=== PATIENT | male | born 2005 | race Caucasian/White ===

== ENCOUNTER 2024-05-25 09:01 | Emergency (ER) | payer SELFPAY ==
[2024-05-25 09:02] VITALS: BP 123/109; PULSE 94; RESP 18; TEMP 37.2; O2SAT 97; BMI 26.6
--- NOTE | 2024-05-25 09:11 | EX.ED.DYSGE1 ---
HPI History of Present Illness Chief Complaint: Sore Throat Detail of Chief Complaint: Sore throat x 3 weeks Informant: patient Onset/Context/Timing Onset: Weeks Context: Sudden Onset Timing: Continuous Quality: Patient reports difficulty breathing supine position this morning Location: Bilateral anterior neck pain Current Severity: Mild Maximum Severity: Moderate Worsened by: Swallowing Relieved by: Nothing Associated Symptoms Associated Symptoms: Slight change in voice Narrative Narrative: Patient is a 19-year-old male. He has been to multiple urgent cares for his throat throat. Symptoms started 3 weeks ago. He has been tested for strep, COVID, influenza. No blood work has been taken. He is unaware of any ill contacts. He states the first day he had a fever. Not had a fever since. He does have a cough. He has a chronic cough since he is a smoker. His cough is essentially nonproductive. He denies chest pain or shortness of breath. He denies rhinorrhea, congestion or postnasal drainage. He denies abdominal pain. He denies myalgias or arthralgias. Prior similar symptoms: Yes Recent Illness/Hospitalization: Yes PFSH PFSH Allergy/AdvReac Type Severity Reaction Status Date / Time No Known Allergies Allergy Verified 05/25/24 09:02 Surgical History no surgical history no surgical history Social History (Updated 05/25/24 @ 09:[address] Lupillo Alvarado MD) Smoking Status: Current every day smoker tobacco type: cigarettes and e-cigarettes ROS ROS ED Constitutional Constitutional ED: Denies chills, fever(s), subjective or sweats Eyes Eyes: Denies blurry vision or change in vision ENT ENT ED: Reports sore throat; Denies ear pain or rhinorrhea Cardiovascular Cardiovascular: Denies chest pain, palpitations or racing heartbeat Respiratory/Chest Respiratory/Chest: Denies cough, dyspnea or dyspnea on exertion Gastrointestinal Gastrointestinal: Denies abdominal pain, nausea or vomiting Musculoskeletal Musculoskeletal: Denies arthralgias, myalgias or neck pain Integumentary Denies rash Hematologic/Lymphatic Hematologic/Lymphatic: Denies easy bleeding or easy bruising Allergic/Immunologic Allergic/Immunologic ED: Denies mouth swelling or tongue swelling EXAM Physical Exam Const Vital Signs: 05/25/24 09:02 Temperature 98.9 F Temperature Source Oral Pulse Rate 94 Respiratory Rate 18 Blood Pressure 123/109 H Blood Pressure Mean 113 Pulse Ox 97 Oxygen Delivery Method Room Air Positive well nourished and well developed Constitutional Narrative: Patient's voice is slightly hoarse. General Appearance ED: well developed and NAD; Negative for pallor HEENT Reports moist mucous membranes HEENT Narrative: Head is atraumatic normocephalic. Ears normal. Nares patent no discharge. Posterior pharynx remarkable for enlarged erythematous tonsils. Tonsils are abutting his uvula. There is no displacement of the uvula. There is no exudate. Eyes PERRL and EOMs intact bilaterally General Eye ED: Negative for pale conjunctiva or scleral icterus Neck no lymphadenopathy and supple Neck Narrative: Trachea is midline. There is no in-store expiratory stridor. Chest Wall inspection of chest normal and palpation of chest normal Resp normal respiratory effort and clear to auscultation bilaterally Cardio regular rate, regular rhythm, S1 normal heart sound, S2 normal heart sound and no murmurs Extremity normal to inspection Neuro oriented x3 and CN's II-XII intact bilaterally Sensorium / Orientation: alert Psych mental status grossly normal Skin no rashes or lesions noted and skin turgor normal General Skin Exam: elasticity normal; Negative for jaundice or pallor MDM MDM MDM Narrative Medical decision making narrative: Differential diagnosis would include viral illness, mononucleosis, need to evaluate for retropharyngeal abscess, parapharyngeal abscess. Because his complaint of trouble breathing and certain position soft tissue x-ray of the neck was obtained. Since there is no swelling of the neck, trachea is not displaced and there is no discomfort with moving the trachea and the patient has no stridor CT was not ordered initially. CBC was obtained to assess white count and assess for atypical lymphocytes as well as Monospot. Lab Data Attestation: I reviewed the patient's lab results. Lab results narrative: White count is elevated 17.1 with mild shift. There is no bandemia. There is no atypical lymphocytes noted either. Monospot is positive. This would explain why he has had a sore throat for the past 3 weeks. Labs: Laboratory Results - last 24 hr 05/25/24 09:20 WBC 17.1 H RBC 4.74 Hgb 14.0 Hct 41.0 MCV 86.5 MCH 29.5 MCHC 34.1 RDW Std Deviation 40.6 RDW Coeff of Emigdio 12.9 Plt Count 448 MPV 8.5 Immature Gran % (Auto) 1.600 H Neut % (Auto) 79.5 H Lymph % (Auto) 7.8 L [place] % (Auto) 8.9 Eos % (Auto) 1.6 Baso % (Auto) 0.6 Absolute Neuts (auto) 13.6 H Absolute Lymphs (auto) 1.34 Nucleated RBC % 0 Differential Comment COMMENT Diff Path Review May foll Monoscreen POSITIVE H Radiography Chest X-Ray - ED: 2 View and Read by ED Physician Diagnostic Testing: Clinical Impression(s) from Imaging Studies Soft Tissue Neck X-Ray 05/25/24 09:20 IMPRESSION: Findings suggestive of epiglottitis. Electronically Signed: Servando Felix MD at 10:06 EDT , Radiologist read was concern for epiglottitis. My belief is that the epiglottis redundant. Procedures Other Procedures Procedure(s): Plan was to aerosolized lidocaine. Apparently there is a alliance director shortage. Lido jelly was used to anesthetize the right nares and patient's tongue. Fiberoptic bronchoscopy was tempted orally and was unsuccessful. Able to go through the right naris. The epiglottis was visualized. The epiglottis is normal. Therefore, will discharge to home Discharge Plan Triage Chief Complaint: Sore Throat ED Provider: Lupillo Alvarado Dx/Rx/DC Orders Clinical Impression: Mononucleosis, Acute tonsillitis, Leukocytosis Instructions: ED Mononucleosis Primary Care Provider: Care Physician,No Primary Referrals: Toby Mar MD [Non-Staff] - 10-14 Days if not better Activity Restrictions/Additional Instructions: 1. Salt water gargles 4-6 times a day 2. Chloraseptic spray for your discomfort 3. No contact sports or anything that puts you at risk of sustaining blunt abdominal trauma Print Language: Bhutanese Disposition Disposition: Home, Self Care
--- NOTE | 2024-05-25 09:20 | RAD_ITS ---
STUDY: X-RAY - SOFT TISSUE NECK REASON FOR EXAM: Male, 19 years old. Throat pain, difficulty breathing TECHNIQUE: 2 view(s) of the neck were obtained. COMPARISON: None. FINDINGS: Normal visualized nasopharynx, oropharynx, hypopharynx. There is a swollen epiglottis with a ?thumb-like? appearance, and with thickening of the aryepiglottic folds, consistent with acute epiglottis. Normal visualized subglottic tracheal air column. Normal prevertebral soft tissue structures. Normal visualized osseous structures. The soft tissue structures are unremarkable. Straightening of the normal cervical lordosis. RAD/Neck for Soft Tissue IMPRESSION: Findings suggestive of epiglottitis. Electronically Signed: Servando Felix MD at 10:06 EDT ,
[2024-05-25 09:26] LABS: Absolute Lymphocyte Count 1.34 X10^3/uL (0.83-4.51); Absolute Neutrophil Count 13.6 X10^3/uL (2.0-7.7); Basophil# 0.11 X10^3/uL; Basophil% 0.6 % (0-1); Eosinophil# 0.28 X10^3/uL; Eosinophils% 1.6 % (0-5); Lymphocyte # 1.34 X10^3/ul (0.83-4.51); Lymphocyte % 7.8 % (19-41); Mean Corp Hgb Conc 34.1 g/dL (32-36); Mean Corpuscular Hgb 29.5 pg (27.0-32.0); Mean Corpuscular Volume 86.5 fL (80-94); Mean Platelet Vol. 8.5 fl (6.2-12.0); Monocyte# 1.52 X10^3/uL; Monocyte% 8.9 % (0-10); NRBC Flagged by Analyzer 0 % (0-5); Neutrophil # 13.56 X10^3/uL (2.7-7.7); Neutrophil % 79.5 % (47-70); POSITIVE DIFFERENTIAL YES; Platelet Count 448 K/mm3 (150-450); RBC Distribution Width CV 12.9 % (11.6-14.6); RBC Distribution Width SD 40.6 fl (35.1-43.9); Red Blood Count 4.74 M/mm3 (4.6-6.2); White Blood Count 17.1 K/mm3 (4.4-11.0)
[2024-05-25 09:27] LABS: Differential Indicated SCAN CRITERIA MET
[2024-05-25 09:44] LABS: Internal QC Validated? YES +Cl - CLEAR BKGD; Monotest POSITIVE (Negative); Record Kit Lot#, Mono 13241033
--- NOTE | 2024-05-25 09:47 | ED.RN ---
Dr. Alvarado notified of lab results
[2024-05-25] MEDS: dexAMETHasone 4 MG Tablet 6 MG PO (10:46)
[2024-05-25] MEDS: Lidocaine 2% Jelly 1 APPLIC Tube 10 APPLIC TOPICAL (10:46)
[2024-05-25 10:50] VITALS: BP 113/71; PULSE 100; RESP 16; TEMP 37; O2SAT 100
[2024-05-26 15:06] LABS: Pathologist Review Reviewed
== END 2024-05-25 10:50 | disposition home or self-care (01) ==
PROVIDERS: Emergency Provider Emergency Medicine; Visit Provider Emergency Medicine
DX: B27.90 Infectious mononucleosis, unspecified without complication (principal); J03.90 Acute tonsillitis, unspecified; F17.210 Nicotine dependence, cigarettes, uncomplicated; D72.829 Elevated white blood cell count, unspecified; F17.290 Nicotine dependence, other tobacco product, uncomplicated
CPT/HCPCS: 31622; 70360; 85025; 86308; 99283; A4216

== ENCOUNTER 2024-05-27 07:18 | Emergency (ER) | payer SELFPAY ==
[2024-05-27 07:19] VITALS: BP 124/74; PULSE 80; RESP 16; TEMP 36.4; O2SAT 97; BMI 25.7
--- NOTE | 2024-05-27 07:35 | EX.ED.VIS.UR ---
HPI HPI - URI History of Present Illness Chief Complaint: Sore Throat Informant: patient Onset/Context/Timing Onset: Weeks Context: Gradual Onset Timing: Continuous Current Severity: Mild Maximum Severity: Mild Worsened by: Swallowing Associated Symptoms Associated Symptoms: Positive for Myalgias Narrative Narrative: Healthy 19-year-old male. Has not felt well for the last 2 weeks. Has been in the urgent care had negative strep test. Was seen here diagnosed with mono and a positive monotest. He had a CT soft tissue neck which was questionable for epiglottitis but that he had direct visualization through a nasal scope and there was no epiglottitis. Just says he feels tired and he has soreness in his neck. He is able to swallow. He is able to breathe. No vomiting or diarrhea. Prior similar symptoms: Yes Recent Illness/Hospitalization: No ROS ROS ED ROS Narrative Body aches and sore throat. Constitutional Constitutional ED: Denies chills or fever(s) Eyes Eyes: Denies blurry vision ENT ENT ED: Reports sore throat; Denies ear pain Cardiovascular Cardiovascular: Denies chest pain Respiratory/Chest Respiratory/Chest: Denies cough or dyspnea Gastrointestinal Gastrointestinal: Denies abdominal pain Genitourinary Genitourinary ED: Denies dysuria Musculoskeletal Musculoskeletal: Denies arthralgias Integumentary Denies abscess Neurologic Neurologic: Denies headache(s) Psychiatric Psychiatric: Denies anxiety Endocrine Endocrinology: Denies cold intolerance Hematologic/Lymphatic Hematologic/Lymphatic: Denies easy bleeding Allergic/Immunologic Allergic/Immunologic ED: Denies mouth swelling PFSH PFSH Medical History no medical history no medical history Home Medications ?Medication ?Instructions ?Recorded ?Last Taken ?Type prednisone 20 mg tablet 40 mg (2 x 20 mg) PO DAILY 5 days 05/27/24 Unknown Rx #10 tabs Allergy/AdvReac Type Severity Reaction Status Date / Time No Known Allergies Allergy Verified 05/27/24 07:19 Social History Smoking Status: Current every day smoker tobacco type: cigarettes and e-cigarettes EXAM Physical Exam Narrative Exam Narrative: 19-year-old male no acute distress vital signs stable afebrile. Pulse ox 97% on room air no signs of hypoxia. H EENT exam is mild erythematous posterior pharynx. Tonsils are not touching. Uvula is not significantly enlarged. There is no stridor or drooling. No trouble breathing or swallowing. He came a glass of water he could drink that. I laid him flat in bed he could breathe without any difficulty. TMs are normal. Moist mucous membranes. Neck is mild anterior chain lymphadenopathy. Trachea midline nontender. Lungs clear to auscultation bilaterally. Heart regular rhythm rate about 80 no murmur. Chest wall nontender. Abdomen soft nontender. No organomegaly or tenderness. There is no axillary or inguinal lymphadenopathy. Moving all 4 extremities. Nontender no edema. Back nontender. He is awake and alert no focal motor deficits. Const Vital Signs: 05/27/24 07:19 Temperature 97.5 F L Temperature Source Temporal Pulse Rate 80 Respiratory Rate 16 Blood Pressure 124/74 H Blood Pressure Mean 90 Pulse Ox 97 Oxygen Delivery Method Room Air Positive well nourished and well developed; Negative for obese, cachectic or contractures General Appearance ED: well developed and NAD; Negative for cachectic, contractures, cyanotic, diaphoretic or pallor Nutritional Appearance: Negative for cachectic or obese HEENT Reports moist mucous membranes normocephalic and atraumatic; Negative for scalp tenderness Face and Sinus: Negative for sinus tenderness Teeth and Gingiva: Negative for caries Throat: posterior oropharynx abnormal Positive for erythema Eyes PERRL and EOMs intact bilaterally General Eye ED: Negative for pale conjunctiva or scleral icterus Neck No no lymphadenopathy, supple, no meningeal signs and no JVD General: lymphadenopathy Resp normal respiratory effort and clear to auscultation bilaterally Effort and Inspection: Negative for retractions Auscultation: Negative for rales, rhonchi or wheezes Cardio S1 normal heart sound, S2 normal heart sound and no murmurs Rate: regular rate GI non-tender, non-distended and no masses Inspection: Negative for abdominal distention Auscultation: normoactive bowel sounds Palpation: soft; Negative for tender or guarding Back/Spine no CVA tenderness and normal ROM General Back: Negative for CVA tenderness Cervical Spine: Negative for cervical spine tenderness Thoracic Spine / Upper Back: Negative for thoracic spinal tenderness Lumbar Spine / Lower Back: Negative for lumbar spinal tenderness Sacrum: Negative for tenderness Extremity normal to inspection and full ROM General Extremety ED: Negative for cyanosis or tenderness General Extremity: Negative for cyanosis Neuro oriented x3 and CN's II-XII intact bilaterally Sensorium / Orientation: alert, oriented to person, oriented to place and oriented to time; Negative for orientation impaired, lethargic, stuporous or other Motor Exam: strength 5/5 throughout; Negative for general weakness or strength abnormal Psych mental status grossly normal Appearance: Negative for other Attitude: No agitated Mood & Affect: Negative for depressed, anxious or tearful Skin General Skin Exam: Negative for jaundice or pallor Lesions: no lesions Rashes: no rashes Trauma: Negative for abrasion or laceration MDM MDM MDM Narrative Medical decision making narrative: 19-year-old male with mononucleosis. Exam benign. Mild erythematous posterior pharynx. Does not look like strep. Recent negative strep test. Having no trouble swallowing or breathing. I explained him these do not feel this way for several more weeks. Fluids and rest. I will place him on a short course of steroids to try to help him with the inflammation. History & Record Review Discussion w/independent historian: Patient Additional record(s) reviewed:: Prior inpatient record, Prior outpatient record, Prior ED visit and Prior labs Discharge Plan Triage Chief Complaint: Sore Throat ED Provider: Jacques Paul Dx/Rx/DC Orders Clinical Impression: Mononucleosis, Pharyngitis Instructions: ED Mononucleosis Prescriptions: New prednisone 20 mg tablet 40 mg PO DAILY 5 Days Qty: 10 0RF Primary Care Provider: Care Physician,No Primary Referrals: Mary Jackson [Non-Staff] - As Needed Care Physician,No Primary [Primary Care Provider] - Activity Restrictions/Additional Instructions: Plenty of fluids and rest. Prednisone for inflammation. Follow-up if not improving return if worse. You should start turning the corner in a [place] way for another week possibly 2 but should start feeling better. Print Language: Montserratian Disposition Disposition: Home, Self Care
[2024-05-27] MEDS: predniSONE 20 MG Tablet 40 MG PO (07:46)
[2024-05-27 07:48] VITALS: BP 129/76; PULSE 79; RESP 16; TEMP 36.5; O2SAT 98
== END 2024-05-27 07:50 | disposition home or self-care (01) ==
PROVIDERS: Emergency Provider Emergency Medicine; Visit Provider Emergency Medicine
DX: J02.9 Acute pharyngitis, unspecified (principal); B27.90 Infectious mononucleosis, unspecified without complication; F17.210 Nicotine dependence, cigarettes, uncomplicated; F17.290 Nicotine dependence, other tobacco product, uncomplicated
CPT/HCPCS: 99282

== ENCOUNTER 2024-05-30 11:53 | Inpatient (IN) | payer SELFPAY ==
[2024-05-30] VITALS (17 sets, daily range): BP systolic 95–139; BP diastolic 55–91; PULSE 52–78; RESP 13–23; TEMP 36.2–36.7; O2SAT 97–99; BMI 25.6; BMI 25.4
--- NOTE | 2024-05-30 13:29 | CT_ITS ---
STUDY: CT SOFT TISSUE NECK WITH CONTRAST REASON FOR EXAM: Male, 19 years old. Four-week history of sore throat. RADIATION DOSAGE (If Supplied By Facility): CTDIvol = ( 18.02 ) mGy, DLP = ( 519.62 ) mGycm TECHNIQUE: The patient was scanned in a multi-detector CT scanner. High resolution transaxial imaging was performed following intravenous administration of IV 75mL Isovue-300. Sagittal and coronal images were reconstructed. Individualized dose optimization techniques were used for this CT. COMPARISON: None. FINDINGS: Normal bilateral parotid glands. Normal bilateral philosophy faculty member spaces. Normal bilateral parapharyngeal spaces. Normal bilateral carotid spaces. Normal bilateral sublingual and submandibular glands and spaces. Normal visualized nasopharynx. Normal retropharyngeal space. Normal perivertebral space. There is a 3.5 cm x 2.6 cm x 3.1 cm hypodense soft tissue mass arising from the right palatine tonsils and extending towards the right oropharynx with thickening of the epiglottis as well as the right aryepiglottic folds. This may represent tonsillitis with developing abscess. Clinical correlation recommended. There are minimally enlarged lymph nodes of the neck, with preservation of normal glenn architecture, consistent with a reactive lymph hyperplasia. There is no demonstrated solid or cystic mass lesion. There is no abnormal contrast enhancement. Normal epiglottis, bilateral vallecula and hypopharynx. The pre-epiglottic and paraglottic adipose spaces are normal. Normal visualized bilateral piriform sinuses, aryepiglottic folds, vocal cords, and arytenoid-cricoid articulations. Normal subglottic trachea. Normal bilateral lobes of the thyroid gland. Normal visualized pulmonary apices. Normal visualized paranasal sinuses. Normal visualized cervical spine. CT/Soft Tissue Neck WITH Contrast IMPRESSION: 3.5 cm x 2.6 cm x 3.1 cm hypodense soft tissue mass rising from the right side of the tonsils and extending towards the right oropharynx with thickening of the epiglottis as well as the right aryepiglottic folds. An abscess should be ruled out. Small right cervical lymph nodes. Electronically Signed: Servando Felix MD at 14:23 EDT ,
--- NOTE | 2024-05-30 13:30 | EX.ED.DYSGE1 ---
HPI History of Present Illness Chief Complaint: Sore Throat Informant: patient Narrative Narrative: 19-year-old male presenting to the emergency room with right neck pain. Patient states that about 4 weeks ago he developed whole body aches fatigue and chills. He felt like he was coming down with COVID. States he has been to the emergency room twice as well as urgent care. He was eventually diagnosed with mononucleosis. He states he has not gotten any better in fact he states that his throat feels worse. He notes right-sided neck and throat pain radiates up towards the ear and right side of his face. He wonders if he has a dental abscess. He notes some swelling on the right lateral lower neck. He denies any rashes. He has not followed up with primary care or with ENT. Denies any abdominal trauma pallor. He states the body aches fatigue has resolved. PFSH PFS Home Medications ?Medication ?Instructions ?Recorded ?Last Taken ?Type prednisone 20 mg tablet 40 mg (2 x 20 mg) PO DAILY 5 days 05/27/24 Unknown Rx #10 tabs Allergy/AdvReac Type Severity Reaction Status Date / Time No Known Allergies Allergy Verified 05/30/24 11:54 Social History Smoking Status: Current every day smoker tobacco type: cigarettes and e-cigarettes ROS ROS ED Constitutional Constitutional ED: Denies chills, fever(s) or weight loss Eyes Eyes: Denies change in vision or diplopia ENT ENT ED: Reports ear pain, sore throat and other Details: Right facial pain ; Denies rhinorrhea Cardiovascular Cardiovascular: Denies chest pain, orthopnea, palpitations or racing heartbeat Respiratory/Chest Respiratory/Chest: Denies cough, dyspnea or orthopnea Gastrointestinal Gastrointestinal: Denies abdominal pain, diarrhea, nausea or vomiting Genitourinary Genitourinary ED: Denies dysuria, hematuria or urinary frequency Musculoskeletal Musculoskeletal: Denies arthralgias or myalgias Integumentary Denies abscess or rash Neurologic Neurologic: Denies headache(s) or weakness Psychiatric Psychiatric: Denies anxiety, depression, suicidal ideation or suicidal thoughts Endocrine Endocrinology: Denies polydipsia, polyphagia or polyuria Allergic/Immunologic Allergic/Immunologic ED: Denies mouth swelling, tongue swelling or urticaria EXAM Physical Exam Const Vital Signs: 05/30/24 11:54 05/30/24 15:53 Temperature 97.2 F L Temperature Source Temporal Pulse Rate 69 77 Respiratory Rate 18 16 Blood Pressure 139/84 H Blood Pressure Mean 102 Pulse Ox 97 99 Oxygen Delivery Method Room Air Room Air Positive well nourished and well developed General Appearance ED: well developed HEENT Reports normocephalic, head/scalp atraumatic and moist mucous membranes HEENT Narrative: I do not appreciate any palatal petechiae. No significant erythema. I do not appreciate any peritonsillar or retropharyngeal abscesses. The tonsils do not appear erythematous or with significant exudate. Uvula appears normal. Floor the mouth is normal. There is no trismus. Tympanic membranes appear normal. There is tenderness and what appears to be enlarged lymph node in the right neck along the sternocleidomastoid muscle. No significant overlying erythema. He notes that this is extremely tender when I palpated and have made his pain in his throat worse. There is no muffled voice or drooling. No meningeal signs. Eyes PERRL and EOMs intact bilaterally Neck supple and no JVD General: tenderness Resp normal respiratory effort and clear to auscultation bilaterally Cardio regular rate, regular rhythm and no murmurs GI normal to inspection, nondistended, normoactive bowel sounds and non-tender Palpation: soft Back/Spine no CVA tenderness and normal ROM Extremity normal to inspection General Extremety ED: Negative for edema General Extremity: Negative for edema Neuro oriented x3 and CN's II-XII intact bilaterally Sensorium / Orientation: alert Motor Exam: strength 5/5 throughout Psych mental status grossly normal Mood & Affect: Negative for depressed or tearful Skin no rashes or lesions noted and no wounds MDM MDM MDM Narrative Medical decision making narrative: Differential diagnosis includes but not limited to mononucleosis peritonsillar retropharyngeal pharyngeal and tonsillar abscesses epiglottitis lymphadenopathy otitis media Based on the patient's history and the physical I obtained basic blood work and a CT of his neck with IV contrast. This reveals a white count of 28.6 which needs to be interpreted in the setting of current prednisone therapy. Glucose is 122. Normal LFTs. CT of the neck with IV contrast reveals a deep space abscess with extension towards the epiglottis. The case was discussed with ENT (Dr. Ding). He is coming to the emergency department to evaluate the patient. We are going to plan on admitting him to the intensive care unit. Blood cultures were obtained and the patient was given Unasyn. I spoke again with Dr. Tapia and we talked about potentially transferring the patient. I spoke with [facility] and [facility] realizing that there is significant bed shortage the patient would be waitlisted. I spoke with the patient himself and he is comfortable staying here and would like to avoid excessive transfer fees if necessary. That being said though I informed him of what our concerns were in terms of airway stability noting that right now he is not intubation but this is something that could develop and it could become a surgical emergency. He understands this. I informed him I would speak again with Dr. Ding and if need be continue to call further facilities. I spoke again with Dr. Mac and our plan at this time would be to go ahead and keep him here. History & Record Review Discussion w/independent historian: Patient Additional record(s) reviewed:: Prior ED visit Lab Data Attestation: I reviewed the patient's lab results. Labs: Laboratory Results - last 24 hr 05/30/24 13:40 WBC 28.6 H RBC 4.80 Hgb 13.9 Hct 41.6 MCV 86.7 MCH 29.0 MCHC 33.4 RDW Std Deviation 42.1 RDW Coeff of Emigdio 13.2 Plt Count 638 H MPV 9.0 Immature Gran % (Auto) 1.100 H Neut % (Auto) 90.2 H Lymph % (Auto) 3.9 L [place] % (Auto) 4.5 Eos % (Auto) 0.0 Baso % (Auto) 0.3 Absolute Neuts (auto) 25.8 H Absolute Lymphs (auto) 1.12 Nucleated RBC % 0 Differential Comment COMMENT Sodium 138 Potassium 4.2 Chloride 104 Carbon Dioxide 27.0 Anion Gap 7 BUN 13 Creatinine 0.74 Estim Creat Clear Calc 157.91 Est GFR (MDRD) Af Amer 173 Est GFR (MDRD) Non-Af 143 BUN/Creatinine Ratio 17.7 Glucose 122 H Calcium 9.6 Total Bilirubin 0.50 Direct Bilirubin 0.17 AST 9 L ALT 15 L Alkaline Phosphatase 94 Total Protein 7.9 Albumin 3.5 Globulin 4.4 H Radiography Diagnostic Testing: Clinical Impression(s) from Imaging Studies Soft Tissue Neck CT 05/30/24 13:29 IMPRESSION: 3.5 cm x 2.6 cm x 3.1 cm hypodense soft tissue mass rising from the right side of the tonsils and extending towards the right oropharynx with thickening of the epiglottis as well as the right aryepiglottic folds. An abscess should be ruled out. Small right cervical lymph nodes. Electronically Signed: Servando Felix MD at 14:23 EDT , Management Discussion w/another healthcare provider: Hospitalist (Dr Roland) and Logistics Operations Director (Dr Ding) Discharge Plan Dx/Rx/DC Orders Clinical Impression: Mononucleosis, Abscess of neck Disposition Disposition: Acute Care Hospital [facility]
[2024-05-30] MEDS: Ketorolac 30 MG/ML Syringe IV ×2 (13:45→19:46)
[2024-05-30 13:57] LABS: Absolute Lymphocyte Count 1.12 X10^3/uL (0.83-4.51); Absolute Neutrophil Count 25.8 X10^3/uL (2.0-7.7); Basophil# 0.08 X10^3/uL; Basophil% 0.3 % (0-1); Eosinophil# 0.01 X10^3/uL; Hematocrit 41.6 % (40-54); Hemoglobin 13.9 g/dL (13.0-16.5); Lymphocyte # 1.12 X10^3/ul (0.83-4.51); Lymphocyte % 3.9 % (19-41); Mean Corp Hgb Conc 33.4 g/dL (32-36); Mean Corpuscular Volume 86.7 fL (80-94); Monocyte% 4.5 % (0-10); NRBC Flagged by Analyzer 0 % (0-5); Neutrophil # 25.77 X10^3/uL (2.7-7.7); Neutrophil % 90.2 % (47-70); POSITIVE DIFFERENTIAL YES; Platelet Count 638 K/mm3 (150-450); RBC Distribution Width CV 13.2 % (11.6-14.6); RBC Distribution Width SD 42.1 fl (35.1-43.9); White Blood Count 28.6 K/mm3 (4.4-11.0)
[2024-05-30 14:05] LABS: Differential Indicated SCAN CRITERIA MET
[2024-05-30 14:12] LABS: AST(SGOT) 9 U/L (15-37); Alanine Aminotransfer ALT/SGPT 15 U/L (16-61); Albumin, Serum 3.5 g/dL (3.2-5.0); Alkaline Phosphatase 94 U/L (45-117); Anion Gap 7 (5-15); BUN 13 mg/dL (7-18); BUN/Creat Ratio 17.7 RATIO (10-20); Bilirubin, Direct 0.17 mg/dL (0.00-0.30); Calcium,Total 9.6 mg/dL (8.5-10.1); Chloride 104 mmol/L (98-107); Creatinine, Serum 0.74 mg/dL (0.70-1.30); EST Glomerular Filtration Rate 143 mL/min (>60); Est Glom Filt Rate - Afr Amer 173 mL/min (>60); Estimated Creatinine Clearance 157.91 ml/min; Globulin 4.4 g/dL (2.2-4.2); Glucose 122 mg/dL (74-106); Potassium 4.2 mmol/L (3.5-5.1); Protein, Total 7.9 g/dL (6.4-8.2); Sodium Level 138 mmol/L (136-145)
[2024-05-30] MEDS: Ampicillin/Sulbactam 3 GM in 0.9% Normal Saline (100mL MB+) 100 ML IV ×3 (15:00→23:19)
--- NOTE | 2024-05-30 15:26 | CON.PCM_ITS ---
Assessment & Plan Assessment/Plan (1) Abscess of neck: PLAN: 19 year old with lateral pharyngeal wall abscess after mono/pharyngitis -scope exam with glottis unaffected, some right piriform sinus fullness, airway clear -cultures taken by ED -WBC 28 - has been on prednisone -unasyn started -ICU admit, will observe response on antibiotics HPI Consult Data Date of Consult: 05/30/24 HPI Narrative Reason for Consultation: pharyngeal abscess HPI Narrative: JESSICA KINGSLEY, is a 19 M who presents with a pharyngeal abscess. [place] positive, progressively worsening sore throat; placed on prednisone, no antibiotics. CT demonstrated right lateral pharyngeal abscess. Clear voice, tolerating secretions. PFSH Home Medications ?Medication ?Instructions ?Recorded ?Last Taken ?Type prednisone 20 mg tablet 40 mg (2 x 20 mg) PO DAILY 5 days 05/27/24 Unknown Rx #10 tabs Allergy/AdvReac Type Severity Reaction Status Date / Time No Known Allergies Allergy Verified 05/30/24 11:54 Social History Smoking Status: Current every day smoker tobacco type: cigarettes and e- cigarettes ROS Constitutional Constitutional: Reports systems reviewed and no addt'l complaints, except as documented Physical Exam Const alert and oriented x3 General Appearance: cooperative Orientation / Consciousness: awake HEENT HEENT Narrative: right cervical fullness/induration with no significant erythema. no stridor or turbulent breathing. tolerating secretions. Nose: external nose normal Lab / Micro Data 05/30/24 13:40 05/30/24 13:40 Labs: Laboratory Results - last 24 hr 05/30/24 13:40: WBC 28.6 H, RBC 4.80, Hgb 13.9, Hct 41.6, MCV 86.7, MCH 29.0, MCHC 33.4, RDW Std Deviation 42.1, RDW Coeff of Emigdio 13.2, Plt Count 638 H, MPV 9.0, Immature Gran % (Auto) 1.100 H, Neut % (Auto) 90.2 H, Lymph % (Auto) 3.9 L, [place] % (Auto) 4.5, Eos % (Auto) 0.0, Baso % (Auto) 0.3, Absolute Neuts (auto) 25.8 H, Absolute Lymphs (auto) 1.12, Nucleated RBC % 0, Differential Comment COMMENT, Sodium 138, Potassium 4.2, Chloride 104, Carbon Dioxide 27.0, Anion Gap 7, BUN 13, Creatinine 0.74, Estim Creat Clear Calc 157.91, Est GFR (MDRD) Af Amer 173, Est GFR (MDRD) Non-Af 143, BUN/Creatinine Ratio 17.7, Glucose 122 H, Calcium 9.6, Total Bilirubin 0.50, Direct Bilirubin 0.17, AST 9 L, ALT 15 L, Alkaline Phosphatase 94, Total Protein 7.9, Albumin 3.5, Globulin 4.4 H Imaging Radiology Impression Soft Tissue Neck CT 05/30/24 13:29 IMPRESSION: 3.5 cm x 2.6 cm x 3.1 cm hypodense soft tissue mass rising from the right side of the tonsils and extending towards the right oropharynx with thickening of the epiglottis as well as the right aryepiglottic folds. An abscess should be ruled out. Small right cervical lymph nodes. Electronically Signed: Servando Felix MD at 14:23 EDT ,
--- NOTE | 2024-05-30 15:26 | ED.RN ---
patient requesting rn called Grandmother Lauren and update her. Lauren has been called and informed patient will be admitted to hospital. lauren requesting address and no further questions at this time
--- NOTE | 2024-05-30 15:30 | NURSING ---
ICU WATTS NECK ABSCESS
--- NOTE | 2024-05-30 15:31 | PCM.OPRPT ---
Problems Associated Problem List Diagnoses (1) Abscess of neck: Report of Operation Date of Procedure: 05/30/24 Pre-Operative Diagnosis: right lateral pharyngeal wall abscess Post-Operative Diagnosis: right lateral pharyngeal wall abscess Surgery/Procedure Performed:: flexible laryngoscopy Surgeon: Yuriy Dign Description of Procedure: scope introduced to left nasal cavity. nasopharyngeal secretions cleared. fullness of right lateral pharyngeal wall / tongue base. right piriform fullness. glottis crisp, cords mobile.
[2024-05-30] MEDS: dexAMETHasone 10 MG/ML Vial IV (15:57)
[2024-05-30] MEDS: Morphine 4 MG/ML Syringe IV (16:31)
[2024-05-30] MEDS: Ondansetron 4 MG/2 ML Vial IV (16:31)
--- NOTE | 2024-05-30 17:24 | PCM.HP.STD ---
HPI - General General Date of Admission: 05/30/24 Date of Service: 05/30/24 Chief Complaint: Right sided neck pain and swelling HPI Narrative JESSICA KINGSLEY, is a 19 M with history of tobacco use presented to [facility] ED with right neck pain and swelling. Initially began to have whole body aches and was feeling unwell 4 weeks ago was diagnosed with mono, couple days ago came in with feeling generally unwell and some right sided throat pain was started on prednisone. He is continue to feel worse so he Re-presented today. He had a right sided palpable mass had a CT which showed hypodense mass on right side of neck. ENT evaluated and advised admission to ICU with close monitoring and IV antibiotics and a dose of IV steroids. There was discussion of possible transfer for patient but no beds available and patient prefers staying at our institution. ED physician discussed again with ENT provider who is agreeable to plan for patient to stay here with close monitoring in ICU. Hospitalist contacted for admission was evaluated at bedside. Reports he is had the neck swelling and pain for about a week and has a little bit of difficult time/change with some of his talking and eating slightly breathing but this has been progressive over the past week and not hyperacute. No fevers or other new or acute complaints PFSH Home Medications ?Medication ?Instructions ?Recorded ?Last Taken ?Type prednisone 20 mg tablet 40 mg (2 x 20 mg) PO DAILY 5 days 05/27/24 Unknown Rx #10 tabs Allergy/AdvReac Type Severity Reaction Status Date / Time No Known Allergies Allergy Verified 05/30/24 11:54 Social History Smoking Status: Current every day smoker tobacco type: cigarettes and e-cigarettes ROS ROS Narrative General: Denies fever/chills but has had some bodyaches HENT: Intermittently some right sided headache when laying down, not bilateral, denies stuffy nose, sore throat on right side EYES: Denies changes in vision Resp: Denies cough, denies overt shortness of breath but does note change in talking on swallowing to some extent Cardiac: Denies chest pain GI: Denies abdominal pain, denies changes in bowel, denies nausea/vomiting : Denies changes in urination Extremity: Denies swelling MSK: Denies weakness Neuro: Denies any numbness/tingling Heme: Denies any bleeding or bruising Skin: Denies rashes Psychiatric: No complaints voiced Vital Signs Vital Signs Vital Signs: 05/30/24 11:54 05/30/24 15:53 05/30/24 17:05 Temperature 97.2 F L Temperature Source Temporal Pulse Rate 69 77 57 L Respiratory Rate 18 16 20 H Blood Pressure 139/84 H Blood Pressure Mean 102 Pulse Ox 97 99 Oxygen Delivery Method Room Air Room Air 05/30/24 17:07 Temperature 98.1 F Temperature Source Temporal Pulse Rate 55 L Respiratory Rate 20 H Blood Pressure 102/91 H Blood Pressure Mean 94 Pulse Ox 97 Oxygen Delivery Method Weight Weight: 78.653 kg Body Mass Index (BMI) 25.6 Physical Exam Narrative General: Alert, oriented, no apparent distress HEENT: Atraumatic, normocephalic Eyes: Anicteric, normal conjunctiva, extraocular movements grossly intact Neck: Supple, right sided palpable mass on lateral neck, pharynx overall unremarkable Respiratory: Clear to auscultation bilaterally, normal respiratory effort Cardiovascular: Regular rate and rhythm GI: Soft, nontender, nondistended Extremities: No edema Musculoskeletal: Moving all extremities Neuro: No overt focal neurological deficits Skin: No rashes appreciated Psych: Cooperative Results Lab / Micro Data 05/30/24 13:40 05/30/24 13:40 Labs: Laboratory Results - last 24 hr 05/30/24 13:40: WBC 28.6 H, RBC 4.80, Hgb 13.9, Hct 41.6, MCV 86.7, MCH 29.0, MCHC 33.4, RDW Std Deviation 42.1, RDW Coeff of Emigdio 13.2, Plt Count 638 H, MPV 9.0, Immature Gran % (Auto) 1.100 H, Neut % (Auto) 90.2 H, Lymph % (Auto) 3.9 L, [place] % (Auto) 4.5, Eos % (Auto) 0.0, Baso % (Auto) 0.3, Absolute Neuts (auto) 25.8 H, Absolute Lymphs (auto) 1.12, Nucleated RBC % 0, Differential Comment COMMENT, Sodium 138, Potassium 4.2, Chloride 104, Carbon Dioxide 27.0, Anion Gap 7, BUN 13, Creatinine 0.74, Estim Creat Clear Calc 157.91, Est GFR (MDRD) Af Amer 173, Est GFR (MDRD) Non-Af 143, BUN/Creatinine Ratio 17.7, Glucose 122 H, Calcium 9.6, Total Bilirubin 0.50, Direct Bilirubin 0.17, AST 9 L, ALT 15 L, Alkaline Phosphatase 94, Total Protein 7.9, Albumin 3.5, Globulin 4.4 H Imaging Radiology Impression Soft Tissue Neck CT 05/30/24 13:29 IMPRESSION: 3.5 cm x 2.6 cm x 3.1 cm hypodense soft tissue mass rising from the right side of the tonsils and extending towards the right oropharynx with thickening of the epiglottis as well as the right aryepiglottic folds. An abscess should be ruled out. Small right cervical lymph nodes. Electronically Signed: Servando Felix MD at 14:23 EDT , Assessment & Plan Assessment/Plan (1) Abscess of neck: PLAN: Plan # Right sided neck soft tissue mass -3.5 x 2.6 x 3.1 cm hypodense soft tissue mass on right side of neck -Evaluated by ENT in the ED, patient to be admitted to our hospital and does not need emergent OR or intubation and is protecting his airway at this time -Discussed with the ED physician and with ENT physician -Is advised liquid diet and n.p.o. at midnight -Decadron IV given in ED as was Unasyn -Continue unasyn -Pain control -Elevate HOB #Tobacco use -Advise cessation -Nicotine replacement available if desired #DVT ppx: Lovenox subcu Felecia Roland MD Time spent in the patient's overall evaluation,decision-making process, review of diagnostic data, adjustment of management, discussion with other providers, nursing nursing and ancillary staff involved in patient's care documentation, 56 Minutes Charges/Coding Visit Charges Inpatient E&M: 30807 Init Hosp L2
[2024-05-30] MEDS: fentaNYL 100 MCG/2 ML Ampul 50 MCG IV ×2 (17:39→22:04)
[2024-05-30] MEDS: Acetaminophen 325 MG Tablet 650 MG PO (19:46)
[2024-05-31] VITALS (23 sets, daily range): BP systolic 96–131; BP diastolic 45–91; PULSE 47–97; RESP 14–18; TEMP 36.3–36.8; O2SAT 94–99; BMI 25.5
[2024-05-31] MEDS: fentaNYL 100 MCG/2 ML Ampul 50 MCG IV ×6 (01:09→23:43)
[2024-05-31] MEDS: Ketorolac 30 MG/ML Syringe IV ×4 (02:51→21:47)
[2024-05-31 03:23] LABS: Absolute Lymphocyte Count 1.32 X10^3/uL (0.83-4.51); Absolute Neutrophil Count 23.2 X10^3/uL (2.0-7.7); Basophil% 0.4 % (0-1); Eosinophil# 0.02 X10^3/uL; Eosinophils% 0.1 % (0-5); Hematocrit 39.1 % (40-54); Hemoglobin 13.1 g/dL (13.0-16.5); Lymphocyte # 1.32 X10^3/ul (0.83-4.51); Mean Corp Hgb Conc 33.5 g/dL (32-36); Mean Corpuscular Volume 86.7 fL (80-94); Mean Platelet Vol. 8.9 fl (6.2-12.0); Monocyte% 5.3 % (0-10); NRBC Flagged by Analyzer 0 % (0-5); Neutrophil # 23.19 X10^3/uL (2.7-7.7); Neutrophil % 87.6 % (47-70); POSITIVE DIFFERENTIAL YES; Platelet Count 647 K/mm3 (150-450); RBC Distribution Width CV 13.3 % (11.6-14.6); RBC Distribution Width SD 42.5 fl (35.1-43.9); Red Blood Count 4.51 M/mm3 (4.6-6.2); White Blood Count 26.4 K/mm3 (4.4-11.0)
[2024-05-31 03:24] LABS: Differential Indicated SCAN CRITERIA MET
[2024-05-31] MEDS: Famotidine 200 MG/20 ML MDV 20 MG in 0.9% Normal Saline (Pres. free 8 ML 300 MG IV ×3 (03:30→21:12)
[2024-05-31] MEDS: dexAMETHasone 10 MG/ML Vial IV (03:30)
[2024-05-31] MEDS: 0.9% Saline Lock 10 ML Syringe IV ×4 (03:30→15:32)
[2024-05-31 03:38] LABS: Anion Gap 5 (5-15); BUN 12 mg/dL (7-18); BUN/Creat Ratio 19.6 RATIO (10-20); Calcium,Total 9.1 mg/dL (8.5-10.1); Chloride 105 mmol/L (98-107); Creatinine, Serum 0.61 mg/dL (0.70-1.30); EST Glomerular Filtration Rate 176 mL/min (>60); Est Glom Filt Rate - Afr Amer 213 mL/min (>60); Estimated Creatinine Clearance 191.56 ml/min; Glucose 151 mg/dL (74-106); Potassium 4.2 mmol/L (3.5-5.1); Sodium Level 135 mmol/L (136-145)
[2024-05-31 03:54] LABS: Differential Comment SCANNED
[2024-05-31] MEDS: Ampicillin/Sulbactam 3 GM in 0.9% Normal Saline (100mL MB+) 100 ML IV ×4 (05:26→23:42)
--- NOTE | 2024-05-31 06:44 | PN_ITS ---
Subjective Subjective minimal improvement overnight Objective Data Objective Data Vital Signs: Vital Signs Temp Pulse Resp BP Pulse Ox O2 Del Method 98.3 F 53 L 15 104/52 L 96 Room Air 05/31/24 06:00 05/31/24 06:00 05/31/24 06:00 05/31/24 06:00 05/31/24 06:00 05/31/24 06:00 Oxygen Delivery Method Room Air Weight: 78.5 kg Body Mass Index (BMI) 25.5 Intake & Output: Intake and Output for Last 24 Hours 05/29/24 05/30/24 05/31/24 23:59 23:59 23:59 Intake Total 1024 / 1224 434 / 434 Balance 1024 / 1224 434 / 434 Lab / Micro Data 05/31/24 03:10 05/31/24 03:10 Labs: Laboratory Results - last 24 hr 05/30/24 13:40: WBC 28.6 H, RBC 4.80, Hgb 13.9, Hct 41.6, MCV 86.7, MCH 29.0, MCHC 33.4, RDW Std Deviation 42.1, RDW Coeff of Emigdio 13.2, Plt Count 638 H, MPV 9.0, Immature Gran % (Auto) 1.100 H, Neut % (Auto) 90.2 H, Lymph % (Auto) 3.9 L, [place] % (Auto) 4.5, Eos % (Auto) 0.0, Baso % (Auto) 0.3, Absolute Neuts (auto) 25.8 H, Absolute Lymphs (auto) 1.12, Nucleated RBC % 0, Differential Comment COMMENT, Sodium 138, Potassium 4.2, Chloride 104, Carbon Dioxide 27.0, Anion Gap 7, BUN 13, Creatinine 0.74, Estim Creat Clear Calc 157.91, Est GFR (MDRD) Af Amer 173, Est GFR (MDRD) Non-Af 143, BUN/Creatinine Ratio 17.7, Glucose 122 H, Calcium 9.6, Total Bilirubin 0.50, Direct Bilirubin 0.17, AST 9 L, ALT 15 L, Alkaline Phosphatase 94, Total Protein 7.9, Albumin 3.5, Globulin 4.4 H 05/31/24 03:10: WBC 26.4 H, RBC 4.51 L, Hgb 13.1, Hct 39.1 L, MCV 86.7, MCH 29.0, MCHC 33.5, RDW Std Deviation 42.5, RDW Coeff of Emigdio 13.3, Plt Count 647 H, MPV 8.9, Immature Gran % (Auto) 1.600 H, Neut % (Auto) 87.6 H, Lymph % (Auto) 5.0 L, [place] % (Auto) 5.3, Eos % (Auto) 0.1, Baso % (Auto) 0.4, Absolute Neuts (auto) 23.2 H, Absolute Lymphs (auto) 1.32, Nucleated RBC % 0, Differential Comment SCANNED, Sodium 135 L, Potassium 4.2, Chloride 105, Carbon Dioxide 25.0, Anion Gap 5, BUN 12, Creatinine 0.61 L, Estim Creat Clear Calc 191.56, Est GFR (MDRD) Af Amer 213, Est GFR (MDRD) Non-Af 176, BUN/Creatinine Ratio 19.6, G lucose 151 H, Calcium 9.1 Radiography Diagnostic Testing: Radiology Impression Soft Tissue Neck CT 05/30/24 13:29 IMPRESSION: 3.5 cm x 2.6 cm x 3.1 cm hypodense soft tissue mass rising from the right side of the tonsils and extending towards the right oropharynx with thickening of the epiglottis as well as the right aryepiglottic folds. An abscess should be ruled out. Small right cervical lymph nodes. Electronically Signed: Servando Felix MD at 14:23 EDT , Physical Exam Const alert and oriented x3 General Appearance: cooperative Orientation / Consciousness: awake HEENT HEENT Narrative: right cervical fullness/induration with no significant erythema. no stridor or turbulent breathing. tolerating secretions. Nose: external nose normal Assessment & Plan Assessment/Plan (1) Abscess of neck: PLAN: Plan minimal 12 hour response to IV antibiotics -will keep NPO, plan on cervical I/D potentially this afternoon
--- NOTE | 2024-05-31 11:44 | CASEMGMT ---
SOLANGE VALLE Assessment Face to Face with patient for initial transition planning/care coordination assessment. SOLANGE VALLE introduced self and role at [facility], pt voices understanding. Pt is A&Ox4 and is resting comfortably in bed and is calm. Care providers, pharmacy, and demographics verified. Admitting dx: Neck Abscess LACE Strata: 2 PCP: No PCP. Provider list given Specialists: Denies Preferred Pharmacy: [facility] Insurance: SP. Spangler has seen the pt Prescription Benefit: None at this time LNOK: Lauren Blunt () Living Arrangements: Pt lives with his 17 y/o brother in a two story home with a flat entrance. Pt states that his GM lives on the same property ADLs/IADLs: Ind Transportation: Self, GM. Denies concerns DME: Denies all DME uses or needs HHC/SNF: Denies Hx or needs Pt?s goal: Home. Plan: Home no needs. Pt is planned for an I&D today. Pt denies needs moving forward at this time. CM to follow Rx costs. Que Calixto RN, CM
--- NOTE | 2024-05-31 12:10 | CASEMGMT ---
Social Work SW met w/pt, provided resources to pt as pt is self pay. Pt did see Crys from [facility] [employer] already today. Pt is about to leave for surgery, SW gave pt information on [employer], [facility], [facility] assist, [employer] and prescription assistance programs. SW remains available for any other resources as needed for pt. ERROL Aguiar
--- NOTE | 2024-05-31 12:23 | NURSING ---
transferred off floor via OR staff at this time
--- NOTE | 2024-05-31 12:59 | PRE.ANES_ITS ---
ASA Classification* ASA Classification ASA Classification: 2 Assessment & Plan Anesthesia* Anesthesia Assessment Anesthesia Assessment: Discussed sedation and/or anesthesia options, risks, benefits, and alternatives with patient/parents/legal guardian/POA. Questions invited. The patient/parents/legal guardian/POA seems to understand and agrees to proceed with anesthesia plan. Reviewed the physical assessment, medical history, allergy history and patient home medications list prior to surgery/procedure/anesthetic and documented any changes. Performed airway and anesthesia risk assessments. Anesthesia Type Anesthesia Type: General History Source History Obtained from:: Patient and Chart Anesthesia Focused Assessment* Temperature: 97.8 F Pulse Rate: 70 Blood Pressure: 110/59 Respiratory Rate: 16 Pulse Ox: 97 Oxygen Delivery Method: Room Air Airway Assessment Mouth opens: >3 cm Mallampati Score: III Teeth Condition: Intact (Multiple cavities.) Neck Range of motion (ROM): Full ROM Focused Labs Anesthesia Preop lab: CBC WBC 26.4 K/mm3 (4.4-11.0) H 05/31/24 03:10 RBC 4.51 M/mm3 (4.6-6.2) L 05/31/24 03:10 Hgb 13.1 g/dL (13.0-16.5) 05/31/24 03:10 Hct 39.1 % (40-54) L 05/31/24 03:10 Plt Count 647 K/mm3 (150-450) H 05/31/24 03:10 CHEMISTRY Potassium 4.2 mmol/L (3.5-5.1) 05/31/24 03:10 Sodium 135 mmol/L (136-145) L 05/31/24 03:10 BUN 12 mg/dL (7-18) 05/31/24 03:10 Creatinine 0.61 mg/dL (0.70-1.30) L 05/31/24 03:10 Glucose 151 mg/dL (74-106) H 05/31/24 03:10 COAG Pre-Assessment Diagnosis/Proposed Procedure Planned Operative Procedure(s): Incision drainage of neck abscess. 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 When Was Last Pacemaker Check QUESTION #4 FULL TEXT: You/Your Family Experience fever (hyperthermia) with Anesthesia Last Oral Intake Last Oral intake: Last Oral Intake NPO since Meds taken in AM with sips of water? Meds patient instructed to take am of surgery Any additional information?: Yes NPO since: 00:00 PONV PONV - gaming commissioner: PONV - gaming commissioner Female HX of Motion Sickness HX of N/V After Surgery Non-Smoker Duration of Surgery greater than 60 minutes Number of Risk Factors PONV Score Height & Weight Height & Weight: Anesthesia: Height & Weight Height 5 ft 9 in 05/31/24 09:55 Weight: 78.5 kg 05/31/24 09:55 Body Mass Index (BMI) 25.5 05/31/24 03:42 Respiratory Assessment Respiratory Assessment - gaming commissioner: Respiratory Tract Infection Hx - gaming commissioner Hx Respiratory Tract Infection Any additional information?: Yes Hx Respiratory Tract Infection: No STOP Sleep Apnea STOP Sleep Apnea - gaming commissioner: STOP Sleep Apnea - gaming commissioner Hx Hypertension No 05/30/24 18:12 Hx Sleep Apnea No 05/30/24 18:12 CPAP BIPAP Do you snore loudly (louder No 05/30/24 18:12 than talking or can be heard Do you often feel tired/ No 05/30/24 18:12 fatigued/ sleepy during daytime? Has anyone observed you stop No 05/30/24 18:12 breathing during sleep? STOP Results Negative 05/30/24 18:12 QUESTION #5 FULL TEXT : Do you snore loudly (louder than talking or can be heard through closed doors)? Tobacco Use History Tobacco Use History - gaming commissioner: Tobacco Use History - gaming commissioner Tobacco Use Smoking Status Current every day smoker 05/30/24 18:12 Hx Tobacco Use Yes 05/30/24 18:12 Years Smoking Packs Smoked per Day Smoking Cessation Date was within the last 15 years Hx Smoking Cessation Date Hx Smoking Cessation Counseling Hematologic Medial History Hematologic Hx - gaming commissioner: Hematologic Medical Hx - oval or circular glass cutter Hx of Blood Transfusion No 05/30/24 18:12 Hx of Transfusion in last 3 No 05/30/24 18:12 Months Date of Last Transfusion (if within last 3 months) Ever experience any problems No 05/30/24 18:12 with transfusion(s)? Specify any problems Hx of Preganancy in last 3 N/A 05/30/24 18:12 Months Nurse Filling Out Transfusion LMORROW 05/30/24 18:12 & Questions: Date: 05/30/24 05/30/24 18:12 Time: 18:13 05/30/24 18:12 Patient unable to answer at this time (ie. confused, unrespo /Reproduction History /Reproductive History - gaming commissioner: /Reproductive Hx- gaming commissioner Hx Now Gestational Age (in weeks): EDC: Hx Hx Para Hx Section SAB Active Medications Active Medications: Current Medications Generic Name Dose Route Start Last Admin Trade Name Freq PRN Reason Stop Dose Admin Acetaminophen 650 mg 05/30/24 17:57 05/30/24 19:46 Acetaminophen 325 Mg Tablet PO 650 mg Q6H PRN PRN Administration Pain 1-10 Or Fever >100.7 Albuterol Sulfate 2.5 mg 05/30/24 17:57 Albuterol 2.5 Mg/3 Ml Vial.Neb. INHALATION Q2H PRN PRN SOB &/OR WHEEZING Enoxaparin Sodium 40 mg 05/31/24 10:00 05/31/24 07:38 Enoxaparin 40 Mg/0.4 Ml Syringe SC Not Given DAILY MYRNA Fentanyl Citrate 50 mcg 05/30/24 21:19 05/31/24 10:36 Fentanyl 100 Mcg/2 Ml Ampul IV 50 mcg Q3H PRN PRN Administration Pain Score 6-10 Ampicillin Sodium/Sulbactam 112 mls @ 150 mls/hr 05/30/24 18:00 05/31/24 12:17 Sodium 3 gm/ Sodium Chloride IV Infused Q6 MYRNA Infusion Sodium Chloride 250 mls @ 15 mls/hr 05/30/24 18:03 IV .[id number] PRN Additional IVPB Infusion Sodium Chloride 250 mls @ 15 mls/hr 05/30/24 18:03 IV .[id number] PRN Saline Flush Famotidine 20 mg/ Sodium 10 mls @ 300 mls/hr 05/31/24 03:20 05/31/24 08:03 Chloride IV Infused Q12 MYRNA Infusion Influenza Virus Vaccine 45 mcg 06/01/24 10:00 Flu Vacc 2024-25(6mos Up)/Pf 45 Mcg/0.5 Ml Syringe IM 06/01/24 10:01 .ONCE ONE Ketorolac Tromethamine 30 mg 05/30/24 17:57 05/31/24 09:00 Ketorolac 30 Mg/Ml Syringe IV 06/04/24 17:57 30 mg Q6H PRN PRN Administration Pain Score 1-10 Melatonin 3 mg 05/30/24 17:57 Melatonin 3 Mg Tablet PO QHS PRN PRN INSOMNIA Nicotine 14 mg 05/30/24 18:36 05/31/24 07:56 Nicotine 14 Mg Patch TD 14 mg DAILY MYRNA Administration Ondansetron HCl 4 mg 05/30/24 17:57 Ondansetron 4 Mg/2 Ml Vial IV Q8H PRN PRN NAUSEA/VOMITING Senna/Docusate Sodium 2 tablet 05/30/24 17:57 Senna/Docusate Sodium 1 Tablet PO BID PRN PRN Constipation Sodium Chloride 10 - 40 ml 05/30/24 18:03 05/31/24 09:01 0.9% Saline Lock 10 Ml Syringe IV 10 ml UD PRN Administration SALINE FLUSH PFSH Home Medications ?Medication ?Instructions ?Recorded ?Last Taken ?Type prednisone 20 mg tablet 40 mg (2 x 20 mg) PO DAILY 5 days 05/27/24 Unknown Rx #10 tabs Allergy/AdvReac Type Severity Reaction Status Date / Time No Known Allergies Allergy Verified 05/30/24 11:54 Surgical History (Updated 05/31/24 @ 13:[address] Papito Cottrell MD) Status post open reduction and internal fixation (ORIF) of fracture Social History Smoking Status: Current every day smoker tobacco type: cigarettes and e- cigarettes Review of Systems (Anesthesia) ROS Narrative System reviewed and no additional complaints, except as documented.
--- NOTE | 2024-05-31 13:40 | PCM.PROGNOTE ---
Subjective Subjective patient reports an abrupt, large amount of foul-tasting purulent material in his throat that he spit up; this occurred roughly 90 mins ago. additionally, he has been continuing to spit the same material since. States his pain has completely resolved. Objective Data Objective Data Vital Signs: Vital Signs Temp Pulse Resp BP Pulse Ox O2 Del Method 97.8 F 70 16 110/59 L 97 Room Air 05/31/24 13:02 05/31/24 13:02 05/31/24 13:02 05/31/24 13:02 05/31/24 13:02 05/31/24 13:12 Oxygen Delivery Method Room Air Weight: 78.5 kg Body Mass Index (BMI) 25.5 Intake & Output: Intake and Output for Last 24 Hours 05/29/24 05/30/24 05/31/24 23:59 23:59 23:59 Intake Total 1024 / 1224 556 / 556 Balance 1024 / 1224 556 / 556 Lab / Micro Data 05/31/24 03:10 05/31/24 03:10 Labs: Laboratory Results - last 24 hr 05/30/24 13:40: WBC 28.6 H, RBC 4.80, Hgb 13.9, Hct 41.6, MCV 86.7, MCH 29.0, MCHC 33.4, RDW Std Deviation 42.1, RDW Coeff of Emigdio 13.2, Plt Count 638 H, MPV 9.0, Immature Gran % (Auto) 1.100 H, Neut % (Auto) 90.2 H, Lymph % (Auto) 3.9 L, [place] % (Auto) 4.5, Eos % (Auto) 0.0, Baso % (Auto) 0.3, Absolute Neuts (auto) 25.8 H, Absolute Lymphs (auto) 1.12, Nucleated RBC % 0, Differential Comment COMMENT, Sodium 138, Potassium 4.2, Chloride 104, Carbon Dioxide 27.0, Anion Gap 7, BUN 13, Creatinine 0.74, Estim Creat Clear Calc 157.91, Est GFR (MDRD) Af Amer 173, Est GFR (MDRD) Non-Af 143, BUN/Creatinine Ratio 17.7, Glucose 122 H, Calcium 9.6, Total Bilirubin 0.50, Direct Bilirubin 0.17, AST 9 L, ALT 15 L, Alkaline Phosphatase 94, Total Protein 7.9, Albumin 3.5, Globulin 4.4 H 05/31/24 03:10: WBC 26.4 H, RBC 4.51 L, Hgb 13.1, Hct 39.1 L, MCV 86.7, MCH 29.0, MCHC 33.5, RDW Std Deviation 42.5, RDW Coeff of Emigdio 13.3, Plt Count 647 H, MPV 8.9, Immature Gran % (Auto) 1.600 H, Neut % (Auto) 87.6 H, Lymph % (Auto) 5.0 L, [place] % (Auto) 5.3, Eos % (Auto) 0.1, Baso % (Auto) 0.4, Absolute Neuts (auto) 23.2 H, Absolute Lymphs (auto) 1.32, Nucleated RBC % 0, Differential Comment SCANNED, Sodium 135 L, Potassium 4.2, Chloride 105, Carbon Dioxide 25.0, Anion Gap 5, BUN 12, Creatinine 0.61 L, Estim Creat Clear Calc 191.56, Est GFR (MDRD) Af Amer 213, Est GFR (MDRD) Non-Af 176, BUN/Creatinine Ratio 19.6, Glucose 151 H, Calcium 9.1 Radiography Diagnostic Testing: Radiology Impression Soft Tissue Neck CT 05/30/24 13:29 IMPRESSION: 3.5 cm x 2.6 cm x 3.1 cm hypodense soft tissue mass rising from the right side of the tonsils and extending towards the right oropharynx with thickening of the epiglottis as well as the right aryepiglottic folds. An abscess should be ruled out. Small right cervical lymph nodes. Electronically Signed: Servando Felix MD at 14:23 EDT , Physical Exam Const alert and oriented x3 General Appearance: cooperative Orientation / Consciousness: awake HEENT HEENT Narrative: right cervical fullness/induration has resolved. normal palpation. no stridor or turbulent breathing. tolerating secretions. Nose: external nose normal Assessment & Plan Assessment/Plan (1) Abscess of neck: PLAN: spontaneous abscess rupture and rapid resolution of symptoms -potential for recollection and regression, but this is unlikely. -continue unasyn, no additional decadron. will observe one additional night in the ICU. if he continues to improve symptomatically and WBC decreases as expected, may downgrade from ICU and observe on the floor.
--- NOTE | 2024-05-31 13:44 | NURSING ---
PT STATES IT FEELS LIKE THE ABSCESS POPPED THERE IS LES SPAN AND PRESSURE AND I SPIT A BUNCH OF PUSS OUT. SEEN PT AT BEDSIDE IN PACU AND DETERMINED TO CANCELL CASE FOR NOW. PT TO BE TRANSPORTED BACK UP TO ICU. REPORT CALLED BY THIS RN.
--- NOTE | 2024-05-31 14:14 | PCM.PN.HOSP ---
Reason for Visit Reason for Visit: Right-sided neck pain and swelling Subjective Subjective Patient is a 19-year-old white male who presents emergency department was commenced on 05/30/2024 with right-sided neck pain and swelling. He had been feeling unwell for about 4 weeks and was diagnosed with mono. Three days prior to presentation he came to the emergency department feeling generally unwell and complaining of some right sided throat pain and was started on prednisone. He did not improve and actually started to feel worse so he came back to the emergency department as noted above. He was noted to have a right sided palpable neck mass for which a CT was performed of the soft tissue in his neck. Hypodense mass was noted and consistent with abscess. ENT evaluated the patient in the emergency department and advised ICU admission with IV antibiotics and IV steroids. Unfortunately, he has not responded all that significantly to the antibiotics and IV steroids but still is protecting his airway quite well. ENT evaluated the patient this morning and plans on taking him to surgery this afternoon for I&D of the neck abscess. Objective Data Objective Data Vital Signs: Vital Signs Temp Pulse Resp BP Pulse Ox O2 Del Method 97.8 F 70 16 110/59 L 97 Room Air 05/31/24 13:02 05/31/24 13:02 05/31/24 13:02 05/31/24 13:02 05/31/24 13:02 05/31/24 13:12 Oxygen Delivery Method Room Air Weight: 78.5 kg Body Mass Index (BMI) 25.5 Intake & Output: Intake and Output for Last 24 Hours 05/29/24 05/30/24 05/31/24 23:59 23:59 23:59 Intake Total 1024 / 1224 756 / 756 Balance 1024 / 1224 756 / 756 Lab / Micro Data 05/31/24 03:10 05/31/24 03:10 Labs: Laboratory Results - last 24 hr 05/30/24 13:40: Differential Comment COMMENT 05/31/24 03:10: WBC 26.4 H, RBC 4.51 L, Hgb 13.1, Hct 39.1 L, MCV 86.7, MCH 29.0, MCHC 33.5, RDW Std Deviation 42.5, RDW Coeff of Emigdio 13.3, Plt Count 647 H, MPV 8.9, Immature Gran % (Auto) 1.600 H, Neut % (Auto) 87.6 H, Lymph % (Auto) 5.0 L, [place] % (Auto) 5.3, Eos % (Auto) 0.1, Baso % (Auto) 0.4, Absolute Neuts (auto) 23.2 H, Absolute Lymphs (auto) 1.32, Nucleated RBC % 0, Differential Comment SCANNED, Sodium 135 L, Potassium 4.2, Chloride 105, Carbon Dioxide 25.0, Anion Gap 5, BUN 12, Creatinine 0.61 L, Estim Creat Clear Calc 191.56, Est GFR (MDRD) Af Amer 213, Est GFR (MDRD) Non-Af 176, BUN/Creatinine Ratio 19.6, Glucose 151 H, Calcium 9.1 Radiography Diagnostic Testing: Radiology Impression Soft Tissue Neck CT 05/30/24 13:29 IMPRESSION: 3.5 cm x 2.6 cm x 3.1 cm hypodense soft tissue mass rising from the right side of the tonsils and extending towards the right oropharynx with thickening of the epiglottis as well as the right aryepiglottic folds. An abscess should be ruled out. Small right cervical lymph nodes. Electronically Signed: Servando Felix MD at 14:23 EDT , Physical Exam Const alert, oriented x3, no apparent distress, average body habitus, healthy appearing and well nourished Constitutional Narrative: Young, white male, sitting up in bed, does not appear acutely ill, very pleasant, interacts appropriately HEENT head/scalp atraumatic and moist oral mucous membranes HEENT Narrative: Trachea is midline Head and Scalp: normocephalic Neck Neck Narrative: Right side of the neck is full in appearance and somewhat indurated with palpation, tenderness on the right side the neck and submandibular region but no fullness in the submandibular region otherwise neck is supple, patient is able to swallow with slight pain but no marked difficulty and is managing secretions Resp normal respiratory effort, no retractions, no use of accessory muscles and clear to auscultation bilaterally Auscultation: Negative for rales, rhonchi or wheezes Cardio regular rate, regular rhythm, S1 normal heart sound, S2 normal heart sound, no murmurs, no rub, no gallops and no clicks GI normal to inspection, nondistended, normoactive bowel sounds, soft to palpation and non-tender Extremity no clubbing, cyanosis or edema Extremity Narrative: Pedal pulses are 2+ Neuro oriented x3, moves all extremities and no focal motor deficits Speech: speech normal Psych affect normal Psych Narrative: Very pleasant, interacts appropriately, eye contact is good Assessment & Plan Assessment/Plan (1) Abscess of neck: (2) Leukocytosis: PLAN: Plan Right sided neck mass/abscess -3.5 x 2.6 x 3.1 cm hypodense soft tissue mass on right side of neck -Continue IV Decadron -Continue IV Unasyn -Continue as needed pain medication -N.p.o. for OR this afternoon -ENT is following-appreciate input Leukocytosis -Suspect demargination from steroids plus acute infection -Should trend down with time Tobacco abuse -Advise cessation -Continue nicotine replacement therapy DVT prophylaxis -Continue subcu Lovenox CODE STATUS -Full code Charges/Coding Visit Charges Inpatient E&M: 28604 Subs Hosp L2
[2024-05-31] MEDS: MELATONIN 3 MG TABLET PO (23:43)
[2024-06-01] VITALS (10 sets, daily range): BP systolic 109–132; BP diastolic 60–72; PULSE 46–62; RESP 14–17; TEMP 36.5–36.7; O2SAT 92–100; BMI 26.1
[2024-06-01] MEDS: Ketorolac 30 MG/ML Syringe IV (04:50)
[2024-06-01] MEDS: Ampicillin/Sulbactam 3 GM in 0.9% Normal Saline (100mL MB+) 100 ML IV ×3 (06:00→17:00)
[2024-06-01] MEDS: fentaNYL 100 MCG/2 ML Ampul 50 MCG IV (06:15)
--- NOTE | 2024-06-01 06:46 | CT_ITS ---
STUDY: CT SOFT TISSUE NECK WITH CONTRAST REASON FOR EXAM: Male, 19 years old. Abscess evaluation RADIATION DOSAGE (If Supplied By Facility): CTDIvol = ( 16.04 ) mGy, DLP = ( 516.93 ) mGycm TECHNIQUE: The patient was scanned in a multi-detector CT scanner. High resolution transaxial imaging was performed following intravenous administration of IV 75mL Isovue-370. Sagittal and coronal images were reconstructed. Individualized dose optimization techniques were used for this CT. COMPARISON: Comparison is made with prior study discussed May 30, 2024. FINDINGS: Normal bilateral parotid glands. Normal bilateral director of public works spaces. Normal bilateral parapharyngeal spaces. Normal bilateral carotid spaces. Normal bilateral sublingual and submandibular glands and spaces. Normal visualized nasopharynx. Normal retropharyngeal space. Normal perivertebral space. The previously seen hypodense soft tissue mass/abscess in the right tonsillar region as almost completely resolved. Tiny amount of air is seen at the site of the drainage in keeping with recent drainage. The airways are compromised. The epiglottis as well as the area epiglottic fold on the right side is unremarkable. The visualized cervical lymph nodes (levels I-) are within normal size limits, and maintain normal morphology. There is no demonstrated solid or cystic mass lesion. There is no abnormal contrast enhancement. Normal epiglottis, bilateral vallecula and hypopharynx. The pre-epiglottic and paraglottic adipose spaces are normal. Normal visualized bilateral piriform sinuses, aryepiglottic folds, vocal cords, and arytenoid-cricoid articulations. Normal subglottic trachea. Normal bilateral lobes of the thyroid gland. Normal visualized pulmonary apices. Normal visualized paranasal sinuses. Normal visualized cervical spine. CT/Soft Tissue Neck WITH Contrast IMPRESSION: Almost complete resolution of the previously seen abscess in the right peritonsillar region with a post drainage changes seen. The epiglottis as well as the right aryepiglottic fold is unremarkable at this time. Electronically Signed: Servando Felix MD at 8:30 EDT ,
[2024-06-01 07:12] LABS: Absolute Lymphocyte Count 2.88 X10^3/uL (0.83-4.51); Absolute Neutrophil Count 13.3 X10^3/uL (2.0-7.7); Basophil# 0.06 X10^3/uL; Basophil% 0.3 % (0-1); Eosinophil# 0.05 X10^3/uL; Eosinophils% 0.3 % (0-5); Hematocrit 36.3 % (40-54); Hemoglobin 11.8 g/dL (13.0-16.5); Lymphocyte # 2.88 X10^3/ul (0.83-4.51); Lymphocyte % 15.9 % (19-41); Mean Corp Hgb Conc 32.5 g/dL (32-36); Mean Corpuscular Hgb 28.7 pg (27.0-32.0); Mean Corpuscular Volume 88.3 fL (80-94); Mean Platelet Vol. 9.2 fl (6.2-12.0); Monocyte# 1.54 X10^3/uL; Monocyte% 8.5 % (0-10); NRBC Flagged by Analyzer 0 % (0-5); Neutrophil % 73.3 % (47-70); POSITIVE DIFFERENTIAL YES; Platelet Count 583 K/mm3 (150-450); RBC Distribution Width CV 13.4 % (11.6-14.6); RBC Distribution Width SD 43.8 fl (35.1-43.9); Red Blood Count 4.11 M/mm3 (4.6-6.2); White Blood Count 18.1 K/mm3 (4.4-11.0)
[2024-06-01 07:16] LABS: Differential Indicated SCAN CRITERIA MET
[2024-06-01 07:41] LABS: Anion Gap 5 (5-15); BUN 17 mg/dL (7-18); BUN/Creat Ratio 24.5 RATIO (10-20); Calcium,Total 8.7 mg/dL (8.5-10.1); Chloride 109 mmol/L (98-107); EST Glomerular Filtration Rate 152 mL/min (>60); Est Glom Filt Rate - Afr Amer 184 mL/min (>60); Estimated Creatinine Clearance 166.93 ml/min; Glucose 114 mg/dL (74-106); Potassium 4.3 mmol/L (3.5-5.1); Sodium Level 140 mmol/L (136-145)
[2024-06-01 07:55] LABS: Differential Comment SCANNED
--- NOTE | 2024-06-01 08:12 | PCM.PROGNOTE ---
Subjective Subjective concerns for worsening overnight. states that he feels fine today. given overnight symptoms CT repeated this am. shows resolution of abscess with persistent but significnantly reduced laryngeal edema. Objective Data Objective Data Vital Signs: Vital Signs Temp Pulse Resp BP Pulse Ox O2 Del Method 97.8 F 46 L 16 109/60 96 Room Air 06/01/24 00:00 06/01/24 07:00 06/01/24 07:00 06/01/24 07:00 06/01/24 07:00 06/01/24 07:00 Oxygen Delivery Method Room Air Weight: 80.195 kg Body Mass Index (BMI) 26.1 Intake & Output: Intake and Output for Last 24 Hours 05/30/24 05/31/24 06/01/24 23:59 23:59 23:59 Intake Total 1024 / 1224 1798 / 1798 224 / 224 Output Total 2 / 2 Balance 1024 / 1224 1796 / 1796 224 / 224 Lab / Micro Data 06/01/24 03:55 06/01/24 03:55 Labs: Laboratory Results - last 24 hr 06/01/24 03:55: WBC 18.1 H, RBC 4.11 L, Hgb 11.8 L, Hct 36.3 L, MCV 88.3, MCH 28.7, MCHC 32.5, RDW Std Deviation 43.8, RDW Coeff of Emigdio 13.4, Plt Count 583 H, MPV 9.2, Immature Gran % (Auto) 1.700 H, Neut % (Auto) 73.3 H, Lymph % (Auto) 15.9 L, [place] % (Auto) 8.5, Eos % (Auto) 0.3, Baso % (Auto) 0.3, Absolute Neuts (auto) 13.3 H, Absolute Lymphs (auto) 2.88, Nucleated RBC % 0, Differential Comment SCANNED, Diff Path Review January foll, Sodium 140, Potassium 4.3, Chloride 109 H, Carbon Dioxide 26.0, Anion Gap 5, BUN 17, Creatinine 0.70, Estim Creat Clear Calc 166.93, Est GFR (MDRD) Af Amer 184, Est GFR (MDRD) Non-Af 152, BUN/Creatinine Ratio 24.5 H, Glucose 114 H, Calcium 8.7 Physical Exam Const alert and oriented x3 General Appearance: cooperative Orientation / Consciousness: awake HEENT HEENT Narrative: right cervical fullness/induration has still resolved. normal palpation. no stridor or turbulent breathing. tolerating secretions. Nose: external nose normal Assessment & Plan Assessment/Plan (1) Abscess of neck: PLAN: CT repeated this am. shows resolution of abscess with persistent but significnantly reduced laryngeal edema. -WBC 18 down from 26 today (still in duration of half life of decadron dose) -continue antibiotics, may go to floor, may have PO diet, likely discharged tomorrow AM
[2024-06-01] MEDS: FLU VACC 2024-25(6MOS UP)/PF 45 MCG/0.5 ML SYRINGE IM (08:43)
[2024-06-01] MEDS: Famotidine 200 MG/20 ML MDV 20 MG in 0.9% Normal Saline (Pres. free 8 ML 330 MG IV ×2 (08:45→22:44)
[2024-06-01] MEDS: Ibuprofen 400 MG Tablet 800 MG PO ×2 (11:30→18:25)
[2024-06-01] MEDS: oxyCODONE 5 MG Tablet PO ×2 (12:41→20:23)
--- NOTE | 2024-06-01 17:03 | PCM.PN.HOSP ---
Reason for Visit Reason for Visit: Right sided neck pain and swelling Subjective Subjective Patient was feeling better last evening after rupture but then had pain overnight. Repeat CT was performed and pocket is resolved. He is okay to eat and possible discharge home tomorrow per discussion with ENT through nursing staff. Patient asks if I can send him home with Toradol. We discussed that this was an IV medication and we would send him home with ibuprofen as well as as needed short-term opiates to help with his pain however NSAIDs were preferential at this time. Objective Data Objective Data Vital Signs: Vital Signs Temp Pulse Resp BP Pulse Ox O2 Del Method 97.9 F 57 L 15 129/66 H 94 Room Air 06/01/24 10:00 06/01/24 10:00 06/01/24 10:00 06/01/24 10:00 06/01/24 16:02 06/01/24 16:02 Oxygen Delivery Method Room Air Weight: 80.195 kg Body Mass Index (BMI) 26.1 Intake & Output: Intake and Output for Last 24 Hours 05/30/24 05/31/24 06/01/24 23:59 23:59 23:59 Intake Total 1024 / 1224 1798 / 1798 1066 / 1066 Output Total 2 / 2 Balance 1024 / 1224 1796 / 1796 1066 / 1066 Lab / Micro Data 06/01/24 03:55 06/01/24 03:55 Labs: Laboratory Results - last 24 hr 06/01/24 03:55: WBC 18.1 H, RBC 4.11 L, Hgb 11.8 L, Hct 36.3 L, MCV 88.3, MCH 28.7, MCHC 32.5, RDW Std Deviation 43.8, RDW Coeff of Emigdio 13.4, Plt Count 583 H, MPV 9.2, Immature Gran % (Auto) 1.700 H, Neut % (Auto) 73.3 H, Lymph % (Auto) 15.9 L, [place] % (Auto) 8.5, Eos % (Auto) 0.3, Baso % (Auto) 0.3, Absolute Neuts (auto) 13.3 H, Absolute Lymphs (auto) 2.88, Nucleated RBC % 0, Differential Comment SCANNED, Diff Path Review January, Sodium 140, Potassium 4.3, Chloride 109 H, Carbon Dioxide 26.0, Anion Gap 5, BUN 17, Creatinine 0.70, Estim Creat Clear Calc 166.93, Est GFR (MDRD) Af Amer 184, Est GFR (MDRD) Non-Af 152, BUN/Creatinine Ratio 24.5 H, Glucose 114 H, Calcium 8.7 Micro: Microbiology 05/30/24 15:12 Blood Culture (Wb) - Anticubital Left Blood Culture - Preliminary No growth in 48 hours. 05/30/24 13:35 Mucosa - Throat Throat Culture - Preliminary No growth. Radiography Diagnostic Testing: Radiology Impression Soft Tissue Neck CT 06/01/24 06:46 IMPRESSION: Almost complete resolution of the previously seen abscess in the right peritonsillar region with a post drainage changes seen. The epiglottis as well as the right aryepiglottic fold is unremarkable at this time. Electronically Signed: Servando Felix MD at 8:30 EDT , Physical Exam Const alert, oriented x3, no apparent distress, average body habitus, healthy appearing and well nourished Constitutional Narrative: Young, white male, sitting up in bed, appears if he is feeling better today, does not appear acutely ill, managing secretions well, voice is clear HEENT head/scalp atraumatic and moist oral mucous membranes HEENT Narrative: Normal excursion of mouth Head and Scalp: normocephalic Neck Neck Narrative: Decreased fullness and tenderness in the left side of his neck, no induration noted today Resp normal respiratory effort, no retractions, no use of accessory muscles and clear to auscultation bilaterally Auscultation: Negative for rales, rhonchi or wheezes Cardio regular rate, regular rhythm, S1 normal heart sound, S2 normal heart sound, no murmurs, no rub, no gallops and no clicks GI normal to inspection, nondistended, normoactive bowel sounds, soft to palpation and non-tender Extremity no clubbing, cyanosis or edema Extremity Narrative: Pedal pulses are 2+ Neuro oriented x3, moves all extremities and no focal motor deficits Speech: speech normal Psych affect normal Psych Narrative: Very pleasant, interacts appropriately, eye contact is good Assessment & Plan Assessment/Plan (1) Abscess of neck: (2) Leukocytosis: PLAN: Plan Right sided neck mass/abscess -3.5 x 2.6 x 3.1 cm hypodense soft tissue mass on right side of neck -Blood cultures no growth at 48 hours -Throat culture is preliminary no growth -Continue IV Unasyn -Continue as needed pain medication -Spontaneous rupture show patient did not require intraoperative I&D -ENT is following-appreciate input -Possible discharge tomorrow as long as patient continues to do well Leukocytosis -Suspect demargination from steroids plus acute infection -Should trend down with time -Repeat in a.m. Tobacco abuse -Advise cessation -Continue nicotine replacement therapy DVT prophylaxis -Continue subcu Lovenox CODE STATUS -Full code Charges/Coding Visit Charges Inpatient E&M: 90937 Subs Hosp L2
[2024-06-01] MEDS: 0.9% Saline Lock 10 ML Syringe IV (22:46)
[2024-06-02] MEDS: MELATONIN 3 MG TABLET PO (00:11)
[2024-06-02] MEDS: Ampicillin/Sulbactam 3 GM in 0.9% Normal Saline (100mL MB+) 100 ML IV ×3 (00:12→12:02)
[2024-06-02] MEDS: 0.9% Saline Lock 10 ML Syringe IV (00:12)
[2024-06-02 03:01] VITALS: BP 125/62; PULSE 66; RESP 15; TEMP 36.6; O2SAT 95
[2024-06-02 06:59] LABS: Hematocrit 39.3 % (40-54); Mean Corp Hgb Conc 33.1 g/dL (32-36); Mean Corpuscular Volume 87.5 fL (80-94); Mean Platelet Vol. 8.7 fl (6.2-12.0); POSITIVE COUNT YES; POSITIVE MORPHOLOGY YES; Platelet Count 557 K/mm3 (150-450); RBC Distribution Width CV 13.5 % (11.6-14.6); RBC Distribution Width SD 43.6 fl (35.1-43.9); Red Blood Count 4.49 M/mm3 (4.6-6.2); White Blood Count 10.5 K/mm3 (4.4-11.0)
[2024-06-02 07:06] LABS: Differential Indicated MANUAL DIFF
[2024-06-02 07:49] LABS: Eosinophil 2 % (0-5); Lymphocyte 34 % (19-41); Monocyte 5 % (0-10); Myelocyte 1 % (0-0); Neutrophil-Band 1 % (0-5); Neutrophil-Segmented 57 % (47-70); Platelet Estimate MOD INC (ADEQ); Reactive Lymphocyte 1+; Red Cell Morphology NORM C+C NORMAL (NORM C&C); Total Cells Counted 100 (MANUAL DIFF)
[2024-06-02 07:52] LABS: Absolute Lymphocyte Count 3.57 X10^3/uL (0.83-4.51); Absolute Neutrophil Count 6.1 X10^3/uL (2.0-7.7)
[2024-06-02] MEDS: Ibuprofen 400 MG Tablet 800 MG PO (08:37)
[2024-06-02] MEDS: Famotidine 200 MG/20 ML MDV 20 MG in 0.9% Normal Saline (Pres. free 8 ML 330 MG IV (08:39)
[2024-06-02 09:59] VITALS: BP 109/63; PULSE 68; RESP 16; TEMP 36.8; O2SAT 97
[2024-06-02 14:07] LABS: Pathologist Review Reviewed
[2024-06-02 14:10] LABS: Pathologist Review Reviewed
--- NOTE | 2024-06-02 14:42 | DS.PCM_ITS ---
Providers Date of Admission: 05/30/24 Date of Discharge: 06/02/24 Primary Care Physician: Sindi Primary Care Phys Consultations 05/30/24 17:57 Consult: ENT Routine Consulting Provider: Yuriy Ding Reason for Consult: throat abscess EMERGENT Consult: No MD Notified: Yes Date Notified: 05/30/24 Time Notified: 17:29 Method of Notification: ED Physician Initiated Reason For Visit: NECK ABSCESS Diagnosis Discharge Diagnosis (1) Abscess of neck: Status: Acute Code(s): L02.11 - Cutaneous abscess of neck (2) Leukocytosis: Status: Inactive Code(s): D72.829 - Elevated white blood cell count, unspecified Medications at Discharge Home Medications amoxicillin 875 mg-potassium clavulanate 125 mg tablet 1 tab PO BID #20 tabs 06/02/24 ibuprofen 400 mg tablet 800 mg (2 x 400 mg) PO Q8H PRN PRN Pain Score 1-10 #15 tabs 06/02/24 oxycodone 5 mg tablet 5 mg PO Q6H PRN PRN Pain Score 6-10 3 days #12 tabs 06/02/24 Hospital Course Operations None Procedures - (CT neck soft tissue x 2) Summary of Care Provided Minutes Spent on Discharge: 28 Hospital Course: Patient is a 19-year-old white male who presents emergency department was commenced on 05/30/2024 with right-sided neck pain and swelling. He had been feeling unwell for about 4 weeks and was diagnosed with mono. Three days prior to presentation he came to the emergency department feeling generally unwell and complaining of some right sided throat pain and was started on prednisone. He did not improve and actually started to feel worse so he came back to the emergency department as noted above. He was noted to have a right sided palpable neck mass for which a CT was performed of the soft tissue in his neck. Hypodense mass was noted and consistent with abscess. ENT evaluated the patient in the emergency department and advised ICU admission with IV antibiotics and IV steroids. He was admitted to the ICU and maintained on IV antibiotics. On 05/31/2024 the patient was to be taken to surgery however the abscess spontaneously ruptured later in the afternoon and he did not require any surgical intervention. He was seen by ENT and doing much better however he had increasing pain overnight and there was concern for reaccumulation of abscess fluid so a repeat CT scan was performed. Repeat CT showed almost complete resolution of the previous seen abscess in the right peritonsillar region with a postdrainage change noted and the epiglottis as well as the right aryepiglottic fold was unremarkable. At that point he was started on a regular diet and able to be transferred to the medical floor. He remained stable throughout the night having mild intermittent pain. He was tolerating a p.o. diet, handling his secretions well had minimal pain with palpation and had normal voice and jaw excursion. I reviewed the case with ENT and they felt he was safe to discharge home. The plan will be for another 10 days of oral antibiotics with Augmentin and then ENT would like to see him in the office in the next month. Prescriptions for Augmentin, and a short course of oxycodone and prescription ibuprofen were sent to the pharmacy prior to discharge. The patient was discharged in stable condition on 06/02/2024. Discharge diagnoses: Right sided neck mass/abscess-resolved Leukocytosis-resolved Tobacco abuse Physical Exam Const alert, oriented x3, no apparent distress, average body habitus, no limitations, healthy appearing and well nourished Constitutional Narrative: Young, white male, sitting up in bed, appears if he is feeling better today, does not appear acutely ill, managing secretions well, voice is clear, watching television General Appearance: cooperative, comfortable, well kempt and well developed Exam Limitations: no limitations HEENT normocephalic, head/scalp atraumatic, hearing grossly normal bilaterally and moist oral mucous membranes HEENT Narrative: Mallampati 2, no thrush, no oral abnormality identified, normal excursion of jaw Neck supple Neck Narrative: No significant fullness noted on the right side of his neck, no submandibular fullness, trachea midline, no thrush Resp normal respiratory effort, no retractions, no use of accessory muscles and clear to auscultation bilaterally Auscultation: Negative for rales, rhonchi or wheezes Cardio regular rate, regular rhythm, S1 normal heart sound, S2 normal heart sound, no murmurs, no rub, no gallops and no clicks GI normal to inspection, nondistended, normoactive bowel sounds, soft to palpation and non-tender Extremity no clubbing, cyanosis or edema Extremity Narrative: Pedal pulses are 2+ Neuro oriented x3, moves all extremities and no focal motor deficits Speech: speech normal Psych affect normal Psych Narrative: Very pleasant, interacts appropriately, eye contact is good Weight / BMI Weight Weight: 80.195 kg Body Mass Index (BMI) 26.1 ABG / Lab / Microbiology Data 06/02/24 06:37 06/01/24 03:55 Laboratory: Laboratory Results - last 24 hr 06/01/24 03:55: Diff Path Review Reviewed 06/02/24 06:37: WBC 10.5, RBC 4.49 L, Hgb 13.0, Hct 39.3 L, MCV 87.5, MCH 29.0, MCHC 33.1, RDW Std Deviation 43.6, RDW Coeff of Emigdio 13.5, Plt Count 557 H, MPV 8.7, Neut % (Auto) Not Reportable, Absolute Neuts (auto) 6.1, Absolute Lymphs (auto) 3.57, Total Counted 100, Neutrophils % (Manual) 57, Band Neutrophils % 1, Lymphocytes % (Manual) 34, Monocytes % (Manual) 5, Eosinophils % (Manual) 2, M yelocytes % 1 H, Diff Path Review Reviewed, Reactive Lymphocytes 1+, Platelet Estimate MOD INC, RBC Morphology NORM C+C Microbiology: Microbiology 05/30/24 13:35 Mucosa - Throat Throat Culture - Final Normal throat mary isolated. No beta-hemolytic streptococcus isolated. 05/30/24 15:12 Blood Culture (Wb) - Anticubital Left Blood Culture - Preliminary No growth in 48 hours. D/C Instructions Discharge Diet: No restrictions Discharge Activity: Return to Normal Activity Return to work on: 06/03/24 Meaningful Use Info Meaningful Use Meaningful Use Diagnoses (Choose all that apply): None applicable Ischemic Stroke Statin Dosing Therapy Reference: STATIN DOSE THERAPY REFERENCE: * Patients > 75 years receive moderate or high dose statin therapy. * Patients 75 years or YOUNGER should receive HIGH intensity statin dose unless contraindicated. You will be required to document reason for non-treatment if statin daily dose does not meet guidelines. HIGH DOSE STATIN THERAPY DAILY Atorvastatin > than or = to 40 mg Rosuvastatin > than or = to 20 mg Amlodipine + Atorvastatin > than or = to 2.5/40 mg Ezetimibe + Simvastatin 10/80 mg Simvastatin 80mg Discharge Plan Admission Admit Date/Time: 05/30/24 17:14 Primary Reason for Your Visit: R throat abscess Attending Provider: Yvette Nieto Primary Care Provider: Care Physician,No Primary Consulting Providers: Felecia Roland; Yuriy Ding Discharge Orders/Prescriptions Prescriptions: New oxycodone 5 mg Tablet 5 mg PO Q6H PRN PRN (Reason: Pain Score 6-10) 3 Days Qty: 12 0RF ibuprofen 400 mg Tablet 800 mg PO Q8H PRN PRN (Reason: Pain Score 1-10) Qty: 15 0RF amoxicillin-pot clavulanate 875-125 mg tablet 1 tab PO BID Qty: 20 0RF Discontinued prednisone 20 mg tablet 40 mg PO DAILY 5 Days Qty: 10 0RF Referrals / Follow Up: Yuriy Ding MD [Med Staff - Active Staff] - Within 1 Month (Call tomorrow to set up an appointment) Care Physician,No Primary [Primary Care Provider] - Disposition Disposition (needs filled in before D/C Order can be placed): Home, Self Care Charges/Coding Visit Charges Inpatient E&M: 88388 Disch Hosp >30min
[2024-06-02 15:04] VITALS: BP 127/64; PULSE 52; RESP 18; TEMP 36.6; O2SAT 93
--- NOTE | 2024-06-02 15:11 | CASEMGMT ---
Hospitalist called stating putting DC order in, sending medication to [facility] retail pharmacy, asked SOLANGE VALLE to do a mc check. RN LEONARD called pharmacy, spoke with Yamini. Total cost for medications is $46.26. SOLANGE VALLE into pt room, pt already DC home. SOLANGE VALLE called pt, pt states he is ok with cost and on his way to [facility] medications now. Denied questions or concerns.
== END 2024-06-02 15:06 | disposition home or self-care (01) | DRG 603 ==
LOC: ED 14:55 → ICU 17:14 → MS3 06-01 19:03
PROVIDERS: Admitting Provider Internal Medicine; Emergency Provider Emergency Medicine; Visit Provider Internal Medicine
DX: L02.11 Cutaneous abscess of neck (principal); B27.90 Infectious mononucleosis, unspecified without complication; F17.210 Nicotine dependence, cigarettes, uncomplicated; D72.829 Elevated white blood cell count, unspecified; Z79.01 Long term (current) use of anticoagulants; Z79.52 Long term (current) use of systemic steroids
CPT/HCPCS: 36415; 70491; 80048; 80076; 85025; 87040; 87070; 90656; 99252; 99284; J7040; J7120; Q9967; A4216; G0463; J0295; J2405; J3490

== ENCOUNTER 2025-01-29 03:30 | Emergency (ER) | payer MEDICAID, SELFPAY ==
[2025-01-29 03:30] VITALS: BP 142/76; PULSE 76; RESP 17; TEMP 36.6; O2SAT 99; BMI 27.3
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
[2025-01-29 04:30] VITALS: PULSE 80; RESP 18; O2SAT 98
[2025-01-29 05:00] VITALS: BP 128/78; PULSE 81; RESP 18; O2SAT 98
[2025-01-29 05:50] VITALS: BP 128/78; PULSE 81; RESP 18; TEMP 36.6; O2SAT 98
== END 2025-01-29 05:50 | disposition home or self-care (01) ==
PROVIDERS: Emergency Provider Emergency Medicine; PCP Registered Nurse; Visit Provider Emergency Medicine
DX: F32.A Depression, unspecified (principal); R45.851 Suicidal ideations; R03.0 Elevated blood-pressure reading, without diagnosis of hypertension; F41.9 Anxiety disorder, unspecified; Z79.899 Other long term (current) drug therapy; F17.210 Nicotine dependence, cigarettes, uncomplicated; F17.290 Nicotine dependence, other tobacco product, uncomplicated
CPT/HCPCS: 99285

== ENCOUNTER 2025-03-04 12:09 | Emergency (ER) | payer MEDICAID, SELFPAY ==
[2025-03-04 12:10] VITALS: BP 118/73; PULSE 96; RESP 20; TEMP 35.6; O2SAT 99; BMI 24.1
--- NOTE | 2025-03-04 12:22 | US_ITS ---
PROCEDURE: TESTICULAR WITH ARTERIAL FLOW 03/04/2025 REASON FOR EXAM: CONCERN FOR TESTICULAR TORSION, RIGHT TECHNIQUE: TESTICULAR WITH ARTERIAL FLOW COMPARISON: none FINDINGS: Right testicle measures 4.2 x 3.3 x 2.6 cm and epididymus measures 1.2 x 1.0 x 0.8 cm. Small hydrocele is noted within the right. No varicocele of the right. 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 Cannot exclude testicular torsion. Left testicle measures 3.7 x 2.3 x 1.5 cm and epididymis measures 0.8 x 0.6 x 0.3 cm. Epididymal cyst measuring 0.3 x 0.3 x 0.3 cm. No hydrocele or varicocele of the left. 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 Cannot exclude testicular torsion. Small right-sided hydrocele. Reading Location: [id number]
--- NOTE | 2025-03-04 12:22 | EX.ED.GUMALE ---
HPI History of Present Illness Chief Complaint: Male Pain/Injury Narrative Narrative: Patient is a 19-year-old male with past medical history of anxiety, depression who presented to the emergency department the chief complaint of right testicular pain and swelling. He states that about 2 weeks ago he noted that he had right testicular discomfort and noted within the last week that he has had noted increase in size of the right testicle when compared to the left. Patient denies any direct trauma or injuries denies any painful urination hematuria polyuria PFSH PFSH Medical History Depression Anxiety Home Medications ?Medication ?Instructions ?Recorded ?Last Taken ?Type sertraline 25 mg tablet (Zoloft) 25 mg PO QHS #30 tabs 01/29/25 Unknown Rx Allergy/AdvReac Type Severity Reaction Status Date / Time No Known Allergies Allergy Verified 03/04/25 12:11 Surgical History Status post open reduction and internal fixation (ORIF) of fracture Social History Smoking Status: Current every day smoker tobacco type: cigarettes and e-cigarettes alcohol intake: current alcohol intake frequency: a few times a month substance use type: marijuana ROS ROS ED ROS Narrative Constitutional: Denies any fevers, chills, headaches Eyes: Denies change in vision double vision blurry vision Cardiovascular: Denies chest pain Respiratory: Denies shortness of breath Abdomen: Denies abdominal pain nausea vomit diarrhea : Denies painful urination, hematuria, polyuria complains of right testicular pain and swelling as noted above Neurological: Denies any numbness, wheeze, tingling Musculoskeletal: Denies any back pain Skin: Denies any rashes or lesions EXAM Physical Exam Narrative Exam Narrative: General: Patient was lying in bed rest comfortably did not appear to be acute distress Head: Atraumatic, normocephalic Eyes: PERRL bilaterally, EOMI by, no conjunctival injection noted Neck: Soft, supple, trachea midline Cardiovascular: Regular rate and rhythm no murmurs gallops rubs noted Respiratory: Clear to auscultation bilaterally Abdomen: Soft, nondistended, nontender to palpation Genitourinary: Patient's right testicle is firm and tender to palpation when compared to the left testicle, no tenderness to palpation in the epididymis posteriorly, no inguinal hernias noted no concern for Jennifer's gangrene Extremities: +5/5 strength noted in the bilateral upper and lower extremities, radial pulses +2/4 in the by extremities, no pedal edema no exam Neurological: Patient follow commands knew that he was at [facility] year is 2024 Skin: Warm, dry, tact no rashes or lesions noted Const Vital Signs: 03/04/25 12:10 03/04/25 14:09 Temperature 96.0 F L 98.2 F Temperature Source Temporal Oral Pulse Rate 96 84 Respiratory Rate 20 H 15 Blood Pressure 118/73 122/74 H Blood Pressure Mean 88 90 Pulse Ox 99 100 Oxygen Delivery Method Room Air Room Air MDM MDM MDM Narrative Medical decision making narrative: Patient is a 19-year-old male who presented to the emergency department with a chief complaint of right testicular pain. On the differential diagnosis includes but limited to testicular mass, testicular torsion, UTI. Once workup is obtained reviewed he will be reevaluated. At 12:34 PM called and discussed with on-call urologist Dr. Van who states that he feels that this is likely infection and he would like to wait on the ultrasound results. Patient's CBC reviewed showed no evidence of leukocytosis white blood count normal at 7.8, hemoglobin 14.6, platelet count was 386. Patient sodium was 137, potassium normal at 4.7, creatinine normal at 0.83. Patient's AST and ALT were 20 and 10 respectively. Patient's urinalysis reviewed showed no evidence of infection. Patient's testicular ultrasound reviewed showed a complex vascular mass within the right testicle measuring 3.2 x 3.0 x 2.3 cm cannot exclude testicular torsion small right hydrocele noted. I reach back out to on-call urologist Dr. Van who reviewed the images himself and states that this is testicular cancer this is not testicular torsion. He is recommending him having very close follow-up. I discussed the results with the patient and gave him hardcopy there is results and and stressed the importance of him following up with urology in the outpatient setting which he was given Dr. Van information to follow-up with him he is advised to call them on Thursday. He is advised that if they cannot get him in he needs to see a another urologist immediately he was also given [facility]'s information. He is agreeable this plan all question concerns answered he was discharged home in stable condition with instructions to return with worsening symptoms or other concerns Lab Data Labs: Laboratory Results - last 24 hr 03/04/25 03/04/25 12:54 14:00 WBC 7.8 RBC 4.97 Hgb 14.6 Hct 42.1 MCV 84.7 MCH 29.4 MCHC 34.7 RDW Std Deviation 41.2 RDW Coeff of Emigdio 13.3 Plt Count 386 MPV 9.6 Immature Gran % (Auto) 0.300 Neut % (Auto) 73.9 H Lymph % (Auto) 13.7 L Barton % (Auto) 9.8 Eos % (Auto) 1.7 Baso % (Auto) 0.6 Absolute Neuts (auto) 5.7 Absolute Lymphs (auto) 1.06 Nucleated RBC % 0 Sodium 137 Potassium 4.7 Chloride 103 Carbon Dioxide 24.1 Anion Gap 10 BUN 8 Creatinine 0.83 Estim Creat Clear Calc 140.78 Est GFR (MDRD) Non-Af 128 BUN/Creatinine Ratio 10.1 Glucose 108 H Calcium 9.4 Total Bilirubin 0.65 AST 20 ALT 10 Alkaline Phosphatase 74 Total Protein 6.5 Albumin 4.1 Globulin 2.4 Albumin/Globulin Ratio 1.7 Urine Color Yellow Urine Clarity Clear Urine pH 8.0 Ur Specific [place] 1.015 Urine Protein 15 H Urine Glucose (UA) Normal Urine Ketones Negative Urine Occult Blood Negative Urine Nitrite Negative Urine Bilirubin Negative Urine Urobilinogen Normal Ur Leukocyte Esterase Negative Urine RBC 0 SEEN Urine WBC 0 SEEN Ur Squamous Epith Cells 0 SEEN Amorphous Sediment 1+ Urine Bacteria 0 SEEN Urine Mucus 0 SEEN Radiography Diagnostic Testing: Clinical Impression(s) from Imaging Studies Testicular Ultrasound 03/04/25 12:22 IMPRESSION: Complex vascular mass within the right testicle measuring 3.2 x 3.0 x 2.3 cm. Cannot exclude testicular torsion. Small right-sided hydrocele. Reading Location: [facility] Discharge Plan Triage Chief Complaint: Male Pain/Injury ED Provider: Kobe Pisano Dx/Rx/DC Orders Clinical Impression: Pain in right testicle, Mass of right testicle Prescriptions: No Action sertraline [Zoloft] 25 mg tablet 25 mg PO QHS Qty: 30 0RF Primary Care Provider: Mitali Mcnair NP Referrals: Mitali Mcnair NP, RECREATION TECHNICIAN-C [Primary Care Provider] - Feliz Van MD [Med Staff - Active Staff] - Activity Restrictions/Additional Instructions: You need to call Dr. Van office immediately Thursday morning as there is a high concern that you have testicular cancer as there is a mass in your right testicle. If they are unable to see you secondary to insurance reasons or any other reason you need to follow-up with a another urologist immediately. You can also follow-up with [facility] in [place] number is [phone]. Rotate Tylenol and ibuprofen [id number] for pain control when you do this you can take something every 3 hours max dose of Tylenol in 24 hours 4000 mg max dose of ibuprofen in 24 hours 3200 mg. Print Language: Azeri Disposition Disposition: Home, Self Care
--- OUTSIDE RECORDS SUMMARY | 2025-03-04 12:48 | XMS RPT_ITS | CCD ---
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 [facility] 02-07-2025 ALLIED HEALTH HNO ID: [id number] Author: ANGELO RAMAN RT(R) Service: Radiology Author Type: Technologist Type: Allied Health Filed: 02/07/2025 07:44 Note Text: Radiology Service Progress Note PATIENT NAME: Jessica Barr DATE OF SERVICE: February 07, 2025 TIME: 7:44 AM PATIENT IDENTITY VERIFICATION COMPLETED USING TWO (2) IDENTIFIERS: Name and Date of confirmed by patient verbally. FALL SCREENING: Has the patient had 2 falls in the last year or 1 fall with injury or currently using an Ambulatory Assistive Device (Walker, Cane, Wheelchair, Crutches, etc.)? Emergency Room Patient: Screened in ED PATIENT GENDER DATA: Assigned male at PATIENT RELEVANT IMPLANT DATA REVIEWED: Not Applicable PATIENT PRESENTS WITH AN IMPLANTABLE OR ATTACHED TAPPER BIT: No RADIOLOGY DEPARTMENT: General X-ray: Exam(s) Completed: Upper Extremity X-Ray(s): Elbow, left PERIPHERAL IV DATA: Not applicable SIGNED BY: Angelo Raman, RT(R) February 07, 2025 7:44 AM [facility] ED NOTEon 02-07-2025 ED NOTE HNO ID: [id number] Author: KAM WINKLER RN Service: Emergency Medicine Author Type: Registered Nurse Type: ED Notes Filed: 02/08/2025 10:12 Note Text: Emergency Services: ED Call Back Questionnaire SERVICE DATE: 02/07/2025 Are you feeling better? No Any questions about discharge instructions and follow-up care? Yes: Patient required additional teaching about recommended analgesia and follow-up care. Were you able to make a follow up appointment? No, referred to appointment hotline Do you have any further questions? No Is there anything that we could have done differently to improve your ED visit? No Please continue alternating Ibuprofen and Tylenol for pain relief and call Dr. Salinas's office to schedule ED orthopedic follow-up as recommended in discharge instructions. SIGNATURE: Kam Winkler RN PATIENT NAME: Jessica Barr DATE: February 08, 2025 TIME: 10:09 AM [facility] ED NOTE HNO ID: [id number] Author: MILY MUNSON RN Service: Emergency Medicine Author Type: Registered Nurse Type: ED Notes Filed: 02/07/2025 08:41 Note Text: Pt verbalized understanding of home going instructions. [facility] ED NOTE HNO ID: [id number] Author: MILY MUNSON RN Service: Emergency Medicine Author Type: Registered Nurse Type: ED Notes Filed: 02/07/2025 07:23 Note Text: Pt c/o several weeks of numbness/tingling of left arm. Denies injury to left arm or neck. 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 Equal pulses present. [facility] ED PROV NOTEon 02-07-2025 ED PROV NOTE HNO ID: [id number] Author: GIRMA BOYD DO Service: Emergency Medicine Author Type: Physician Type: ED Provider Notes Filed: 02/07/2025 08:17 Note Text: ED Provider Note Patient Name: Jessica Barr : 2005 SERVICE DATE: 02/07/25 History Patient presents with: left arm numb/tingling: Pt c/o left arm numbness/tingling with some episodes of sharp pain shooting down arm for past few weeks. Pt denies injury to neck/arm. 19-year-old male presenting with complaints of some pain in the left elbow as well as some paresthesias in the left forearm and some of his fingertips. Patient thinks symptoms started as long as a year ago but typically would just be in the morning. He states lately it seems to happen throughout the day. Typically it will be exacerbated think by things like using a wrench to either tighten or loosen a bolt sometimes carrying or lifting things. It usually last about 5 minutes. Pain seems to emanate from the elbow when this occurs. He gets some paresthesias in his fingertips. Occasionally the second digit currently the third digit seems to be the most problematic and sometimes the fourth. Typically the thumb and pinky are fine. No pain in the shoulder or upper arm. No paresthesias there. No pain in the neck. He has not had any previous trauma. He does state that he cracks his neck a lot. No previous trauma. He does take ibuprofen occasionally which does not seem to do a lot by his estimation. PAST MEDICAL HISTORY Diagnosis Date - ADHD (attention deficit hyperactivity disorder) 12 y.o. - COVID-19 04/2021 - Nasal fracture 3 y.o - Otitis media in diseases classified elsewhere, bilateral 7 y.o. PAST SURGICAL HISTORY Procedure Laterality Date - W EAR TUBE 2006 bilateral years FAMILY HISTORY Problem Relation Age of Onset - Diabetes Maternal Grandmother - Coronary Artery Disease Maternal Grandfather ND - Coronary Artery Disease Paternal Grandfather ND - Breast Cancer Other Social History Tobacco Use - Smoking status: Every Day Current packs/day: 1.00 Average packs/day: 1 pack/day for 8.8 years (8.8 ttl pk-yrs) Types: Cigarettes Start date: 2016 - Smokeless tobacco: Never Vaping Use - Vaping status: Never Used Substance and Sexual Activity - Alcohol use: Yes Comment: 12 pack every other weekend - Drug use: Never - Sexual activity: Yes Partners: Female control/protection: Condom ALLERGIES No Known Allergies Review of Systems Constitutional: Negative for chills, diaphoresis, fatigue and fever. Respiratory: Negative for cough, chest tightness and shortness of breath. Cardiovascular: Negative for chest pain and leg swelling. Gastrointestinal: Negative for abdominal pain, blood in stool, diarrhea, nausea and vomiting. Genitourinary: Negative for difficulty urinating, flank pain and hematuria. Musculoskeletal: Negative for arthralgias. Left elbow pain and some paresthesias Skin: Negative for color change, pallor, rash and wound. Neurological: Negative for dizziness, seizures, syncope, facial asymmetry, speech difficulty, weakness, light-headedness, numbness and headaches. Psychiatric/Behavioral : Negative for suicidal ideas. Physical Exam Vitals [02/07/25 0720] BP Pulse Temp Temp src Resp SpO2 Weight Height 139/74 77 36.2 ?C (97.2 ?F) Temporal 16 98 % 75.8 kg (167 lb) -- Physical Exam Constitutional: General: He is not in acute distress. Appearance: Normal appearance. He is normal weight. He is not ill-appearing, toxic-appearing or diaphoretic. Cardiovascular: Rate and Rhythm: Normal rate and regular rhythm. Heart sounds: No murmur heard. No friction rub. No gallop. Pulmonary: Effort: Pulmonary effort is normal. No respiratory distress. Breath sounds: Normal breath sounds. No stridor. No wheezing or rhonchi. Musculoskeletal: General: Tenderness (some tenderness over the antecubital fossa. No erythema or fluctuance. Full range of motion of the elbow shoulder and wrist. Green Chain Marker strength intact. Intrinsic muscles of the hand intact. Median radial and ulnar nerve appear intact) present. No swelling, deformity or signs of injury. Right lower leg: No edema. Left lower leg: No edema. Skin: General: Skin is warm and dry. Capillary Refill: Capillary refill takes less than 2 seconds. Coloration: Skin is not jaundiced or pale. Findings: No bruising, erythema, lesion or rash. Neurological: General: No focal deficit present. Mental Status: He is alert and oriented to person, place, and time. Mental status is at baseline. Diagnostic Testing ED Labs Ordered and Reviewed - No data to display Procedures ED Course / Clinical Impression Clinical Impressions as of 02/07/25 0817 Left elbow pain Paresthesias MDM / Disposition / Plan MDM Patient seen and evaluated. Differential including radiculopathy, overuse injury, pinched nerve, traumatic injuries all (more content not included)... Normal [facility] XR ELBOW 2V AP/LAT LTon 06-0 XR ELBOW 2V AP/LAT LT * * *Final Report* * * DATE OF EXAM: Feb 07 2025 7:51AM AWX [id number] - XR ELBOW 2V AP/LAT LT / PROCEDURE REASON: Elbow pain * * * * Physician Interpretation * * * * EXAMINATION: XR ELBOW 2V AP/LAT LT HISTORY: Left arm pain and numbness and tingling. Elbow pain. COMPARISON: None TECHNIQUE: XR ELBOW 2V AP/LAT LT Laterality: LEFT Number of different views (projections): 2 M: XB_1 FINDINGS: No acute fracture or bone erosion. Joint spaces are maintained. IMPRESSION: Unremarkable. Linen Room Supervisor: PSCB Transcribe Date/Time: Feb 07 2025 7:53A Dictated by : SHASHA HOUSE MD This examination was interpreted and the report reviewed and electronically signed by: SHASHA HOUSE MD on Feb 07 2025 7:54AM EST [id number] Normal [facility] Emergency Department Summary on 01-29-2025 Emergency Department Summary [facility] Medical Records Department [address] [place] [address] Emergency Department Summary 01/29/25 MR#: [id number] Acct: [id number] Name: JESSICA BARR Rep #: [id number] : 2005 19 From: Lupillo Alvarado MD PCP: ALEJANDRO Brown Status:REG ER Location: ED HPI HPI - Psych History of Present Illness Chief Complaint: Mental Health Detail of Chief Complaint: Suicidal thoughts at 2 AM with no plan Informant: patient and family Onset/Context/Timing Onset: Today (Suicidal thoughts 0200. Patient has no plan) and - (According to grandmother he has been depressed for 2 years) Context: Sudden Onset Conflict: Family and - (And break-up with significant other) Timing: Continuous and Waxes and wanes Current Severity: Moderate Maximum Severity: Severe Worsened by: Situational factors Relieved by: Nothing Associated Symptoms Associated Symptoms - Psych: Positive for Depressed, Change in sleeping and Suicidal Thoughts; Negative for Change in Eating, Decreased Interest, Guilt, Decreased Concentration, Hopelessness, Easily distracted, Grandiosity, Flight of Ideas, Increased activity, Pressured Speech, Agitated, Angry, Hostile, Threatening, Confusion, Paranoia, Visual Hallucinations or Auditory Hallucinations Specific plan (suicidal thought): No plan Narrative Narrative: Patient is a 19-year-old male. He according to grandmother he has been depressed for over 2 years. This started when his brother of fentanyl overdose November 2022. His mother March of last year and his best friend 15 years and girlfriend of 3 years broke up with him approximately 1 week later. He has not had contact with her since. This evening he had thoughts of her and had suicidal thoughts with no plan. He has never seen a therapist or psychiatrist. He has no history of mental illness. He has never had suicidal thoughts before. Patient states he feels alone. He does not feel hopeless. He has no other symptoms or complaints. Prior similar symptoms: No Recent Illness/Hospitalizatio n: No PFSH PFSH Medical History Depression Anxiety Home Medications ???Medication ???Instructions ???Recorded ???Last Taken ???Type sertraline 25 mg tablet (Zoloft) 25 mg PO QHS #30 tabs 01/29/25 Unk nown Rx Allergy/AdvReac Type Severity Reaction Status Date / Time No Known Allergies Allergy Verified 01/29/25 03:30 Surgical History Status post open reduction and internal fixation (ORIF) of fracture Social History (Updated 01/29/25 @ 04:[address] Lupillo Alvarado MD) Smoking Status: Current every day smoker tobacco type: cigarettes and e-cigarettes alcohol intake: current alcohol intake frequency: a few times a month substance use type: marijuana ROS ROS ED Constitutional Constitutional ED: Denies chills, fever(s) or subjective Eyes Eyes: Denies blurry vision or change in vision ENT ENT ED: Denies rhinorrhea or sore throat Cardiovascular Cardiovascular: Denies chest pain or palpitations Respiratory/Chest Respiratory/Chest: Denies cough, dyspnea or dyspnea on exertion Gastrointestinal Gastrointestinal: Denies abdominal pain, nausea or vomiting Musculoskeletal Musculoskeletal: Denies arthralgias or myalgias Integumentary Denies rash Neurologic Neurologic: Denies headache(s) or paresthesias Psychiatric Psychiatric: Reports depression and suicidal thoughts; Denies anxiety or suicidal ideation Endocrine Endocrinology: Denies polydipsia, polyphagia or polyuria Hematologic/Lymphatic Hematologic/Lymphatic: Denies easy bleeding or easy bruising EXAM Physical Exam Const Vital Signs: 01/29/25 03:30 01/29/25 04:30 01/29/25 05:00 Temperature 98 F Temperature Source Temporal Pulse Rate 76 80 81 Respiratory Rate 17 18 18 Blood Pressure 142/76 H 128/78 H Blood Pressure Mean 98 94 Pulse Ox 99 98 98 Oxygen Delivery Method Room Air Room Air Room Air Positive well nourished and well developed General Appearance ED: well developed and NAD; Negative for pallor HEENT Reports moist mucous membranes normocephalic and atraumatic Eyes PERRL and EOMs intact bilaterally General Eye ED: Negative for scleral icterus Neck no lymphadenopathy, supple and no JVD Resp normal respiratory effort and clear to auscultation bilaterally Cardio S1 normal heart sound, S2 normal heart sound and no murmurs Rate: regular rate Rhythm: regular rhythm Back/Spine no CVA tenderness Extremity normal to inspection General Extremety ED: Negative for edema or tenderness General Extremity: Negative for edema Neuro oriented x3 and CN's II-XII intact bilaterally Katie Coma Scale: document GCS findings Spontaneous Obeys Commands Oriented (more content not included)... Normal [facility] 36on 10-18-2024 36 Pt seen in ED in June 2022 as a trauma and found to have multiple lung nodules: Several scattered pulmonary nodules, some of which are calcified and likely relate to prior granulomatous disease exposure and others of which are indeterminant. Based on the 2017 Amanda Society guidelines, in a patient this age, follow-up of small (<6 mm) incidentally found nodules is typically not indicated*. Pt did not have repeat imaging done and did not reschedule in [facility]. Letter mailed to patient as a reminder for OPTIONAL repeat imaging. Normal [facility] XR WRIST MINIMUM [address] [facility] [place]on 08-11-2024 XR WRIST MINIMUM 3 VIEWS RIGHT ORIGINAL EXAMINATION: THREE XRAY VIEWS OF THE RIGHT WRIST08/11/2024 2:59 pm COMPARISON: None available HISTORY: ORDERING SYSTEM PROVIDED HISTORY: Reason for Exam: pain . Per patient, pain in wrist, no trauma, prior surgeries FINDINGS: Wrist: No acute fracture or dislocation is identified. The joint spaces are maintained. Carpal arcs are preserved. The scapholunate interval is normal. No suspicious bony lesion. Surgical fixation hardware of the distal radius and ulna is intact without loosening. Chronic remodeling of distal radius. IMPRESSION: No acute radiographic findings. I have personally reviewed the images of this examination and agree with the resident's findings and interpretation. Interpreted by: Ed Westbrook MD Preliminary Report By: Santy Brock Electronically signed By Ed Westbrook MD Dictated Date: 08/11/2024 3:29:50 PM Prelim Date: 08/11/2024 3:52:26 PM Sign Date: 08/11/2024 3:52:26 PM Ordering Provider: DARREN CRONIN Normal [facility] Culture, Blood (WB)on 2023 CUB Blood cultures x2 fr om two different sites No growth in 5 days. Normal [facility] Comment on above: Performed By: #### M 200.1000 #### [facility] [address] [place], [place], [id number] CBC W/Diff, Automatedon 05-09 PATH REV Reviewed Normal [facility] Comment on above: Result Comment: Neut rophilic left shift. Thrombocytosis. Clinical correlation necessary. Casimiro Wynn M.D. 06/02/24 AMENDED REPORT 06/02/24 1410 PATH REV previously reported as: January zeeshan Performed By: #### L 100.0100 #### [facility] [address] [place], [address] PATH REV Reviewed Normal [facility] Comment on above: Result Comment: Neut rophilic leukocytosis. Normocytic anemia. Thrombocytosis. Clinical correlation necessary. Casimiro Wynn M.D. 06/02/24 AMENDED REPORT 06/02/24 1407 PATH REV previously reported as: January zeeshan Performed By: #### L 100.0100, L500.2500 #### [facility] [address] [place], [address] Basic Metabolic Profile (BMP )on 06-01-2024 BUN/CRE 24.5 RATIO High 10-20 [facility] Comment on above: Performed By: #### L 100.0100, L500.2500 ####[facility] [address] [place], [address] CA,Total 8.7 mg/dL Normal 8.5-10.1 [facility] Comment on above: Performed By: #### L 100.0100, L500.2500 ####[facility] [address] [place], [address] Chloride [Moles/Vol] 109 mmol/L High 98-107 [facility] Comment on above: Performed By: #### L 100.0100, L500.2500 ####[facility] [address] [place], [address] CO2 [Moles/Vol] 26.0 mmol/L Normal 21.0-32.0 [facility] Comment on above: Performed By: #### L 100.0100, L500.2500 ####[facility] [address] [place], [address] Creatinine [Mass/Vol] 0.70 mg/dL Normal 0.70-1.30 [facility] Comment on above: Result Comment: The validity of the calculated GFR GFRAA in patients over 70 years has not been determined. Clinical correlation is essential. Performed By: #### L 100.0100, L500.2500 ####[facility] [address] [place], [address] ECRCL 166.93 ml/min Normal [facility] Comment on above: Performed By: #### L 100.0100, L500.2500 ####[facility] [address] [place], [address] EST GFR - AA 184 mL/min Normal >60 [facility] Comment on above: Result Comment: Afri can Argentine GFR Calc Performed By: #### L 100.0100, L500.2500 ####[facility] [address] [place], [address] GAP 5 Normal 5-15 [facility] Comment on above: Performed By: #### L 100.0100, L500.2500 ####[facility] [address] [place], [address] GFR/1.73 sq M.predicted among non-blacks MDRD (S/P/Bld) [Vol rate/Area] 152 mL/min/{1.73_m2} Normal >60 [facility] Comment on above: Result Comment: Non- GFR Calc Performed By: #### L 100.0100, L500.2500 ####[facility] [address] [place], [address] Glucose [Mass/Vol] 114 mg/dL High 74-106 [facility] Comment on above: Result Comment: Fast ing Glucose result from 100 to 125 mg/dL suggests IMPAIRED HOMEOSTASIS per A.D.A. criteria. Performed By: #### L 100.0100, L500.2500 ####[facility] [address] [place], [address] Potassium [Moles/Vol] 4.3 mmol/L Normal 3.5-5.1 [facility] Comment on above: Performed By: #### L 100.0100, L500.2500 ####[facility] [address] [place], [address] Sodium [Moles/Vol] 140 mmol/L Normal 136-145 [facility] Comment on above: Performed By: #### L 100.0100, L500.2500 ####[facility] [address] [place], [address] Urea nitrogen [Mass/Vol] 17 mg/dL Normal 7-18 [facility] Comment on above: Performed By: #### L 100.0100, L500.2500 ####[facility] [address] [place], [address] Culture, Throaton 06-01-2024 CUT Normal throat mary isolated. No beta-hemolytic streptococcus isolated. Normal [facility] Comment on above: Performed By: #### M 100.1000 ####[facility] [address] [place], [address] Soft Tissue Neck WITH Contra ston 06-01-2024 Soft Tissue Neck WITH Contrast [facility] Imaging Services [address] [place] [address] Soft Tissue Neck WITH Contrast MR#: [id number] Acct: [id number] Name: JESSICA BARR Rep #: [id number] : 2005 M 19 From: Servando addison MD PCP: Care Physician,No Primary Status: ADM IN Study: Soft Tissue Neck WITH Contrast Date of Exam: 0 06/01/24 Exam# [id number] Ordering Dr: Yuriy Ding [place] [id number] STUDY: CT SOFT TISSUE NECK WITH CONTRAST REASON FOR EXAM: Male, 19 years old. Abscess evaluation RADIATION DOSAGE (If Supplied By Facility): CTDIvol = ( 16.04 ) mGy, DLP = ( 516.93 ) mGycm TECHNIQUE: The patient was scanned in a multi-detector CT scanner. High resolution transaxial imaging was performed following intravenous administration of IV 75mL Isovue-370. Sagittal and coronal images were reconstructed. Individualized dose optimization techniques were used for this CT. COMPARISON: Comparison is made with prior study discussed May 30, 2024. FINDINGS: Normal bilateral parotid glands. Normal bilateral marker delivery spaces. Normal bilateral parapharyngeal spaces. Normal bilateral carotid spaces. Normal bilateral sublingual and submandibular glands and spaces. Normal visualized nasopharynx. Normal retropharyngeal space. Normal perivertebral space. The previously seen hypodense soft tissue mass/abscess in the right tonsillar region as almost completely resolved. Tiny amount of air is seen at the site of the drainage in keeping with recent drainage. The airways are compromised. The epiglottis as well as the area epiglottic fold on the right side is unremarkable. The visualized cervical lymph nodes (levels I-) are within normal size limits, and maintain normal morphology. There is no demonstrated solid or cystic mass lesion. There is no abnormal contrast enhancement. Normal epiglottis, bilateral vallecula and hypopharynx. The pre-epiglottic and paraglottic adipose spaces are normal. Normal visualized bilateral piriform sinuses, aryepiglottic folds, vocal cords, and arytenoid-cricoid articulations. Normal subglottic trachea. Normal bilateral lobes of the thyroid gland. Normal visualized pulmonary apices. Normal visualized paranasal sinuses. Normal visualized cervical spine. CT/Soft Tissue Neck WITH Contrast IMPRESSION: Almost complete resolution of the previously seen abscess in the right peritonsillar region with a post drainage changes seen. The epiglottis as well as the right aryepiglottic fold is unremarkable at this time. Electronically Signed: Servando Felix MD at 8:30 EDT Reading Location ID and State: [address] [place] [address] , Service support , CC: Dr. Yuriy Ding MD; No Primary Care Physician Linen Room Supervisor: Signed Normal [facility] Basic Metabolic Profile (BMP )on 05-31-2024 BUN/CRE 19.6 RATIO Normal 10-20 [facility] Comment on above: Performed By: #### L 500.2500, L100.0100 ####[facility] [address] [place], [address] CA,Total 9.1 mg/dL Normal 8.5-10.1 [facility] Comment on above: Performed By: #### L 500.2500, L100.0100 ####[facility] [address] [place], [address] Chloride [Moles/Vol] 105 mmol/L Normal 98-107 [facility] Comment on above: Performed By: #### L 500.2500, L100.0100 ####[facility] [address] [place], [address] CO2 [Moles/Vol] 25.0 mmol/L Normal 21.0-32.0 [facility] Comment on above: Performed By: #### L 500.2500, L100.0100 ####[facility] [address] [place], [address] Creatinine [Mass/Vol] 0.61 mg/dL Low 0.70-1.30 [facility] Comment on above: Result Comment: The validity of the calculated GFR GFRAA in patients over 70 years has not been determined. Clinical correlation is essential. Performed By: #### L 500.2500, L100.0100 ####[facility] [address] [place], [address] ECRCL 191.56 ml/min Normal [facility] Comment on above: Performed By: #### L 500.2500, L100.0100 ####[facility] [address] [place], [address] EST GFR - AA 213 mL/min Normal >60 [facility] Comment on above: Result Comment: Afri can Argentine GFR Calc Performed By: #### L 500.2500, L100.0100 ####[facility] [address] [place], [address] GAP 5 Normal 5-15 [facility] Comment on above: Performed By: #### L 500.2500, L100.0100 ####[facility] [address] [place], [address] GFR/1.73 sq M.predicted among non-blacks MDRD (S/P/Bld) [Vol rate/Area] 176 mL/min/{1.73_m2} Normal >60 [facility] Comment on above: Result Comment: Non- GFR Calc Performed By: #### L 500.2500, L100.0100 ####[facility] [address] [place], [address] Glucose [Mass/Vol] 151 mg/dL High 74-106 [facility] Comment on above: Result Comment: Fast ing Glucose result greater than or equal to 126 mg/dL suggests DIABETES MELLITUS per A.D.A. criteria. Performed By: #### L 500.2500, L100.0100 ####[facility] [address] [place], [address] Potassium [Moles/Vol] 4.2 mmol/L Normal 3.5-5.1 [facility] Comment on above: Performed By: #### L 500.2500, L100.0100 ####[facility] [address] [place], [address] Sodium [Moles/Vol] 135 mmol/L Low 136-145 [facility] Comment on above: Performed By: #### L 500.2500, L100.0100 ####[facility] [address] [place], [address] Urea nitrogen [Mass/Vol] 12 mg/dL Normal 7-18 [facility] Comment on above: Performed By: #### L 500.2500, L100.0100 ####[facility] [address] [place], [address] CBC W/Diff, Automatedon 05-09 SMEAR COMMENT SCANNED Normal [facility] Comment on above: Result Comment: NEUT ROPHILLIA PRESENT Performed By: #### L 500.2500, L100.0100 ####[facility] [address] [place], [address] Basic Metabolic Profile (BMP )on 05-30-2024 BUN/CRE 17.7 RATIO Normal 10-20 [facility] Comment on above: Performed By: #### L 500.2500, L100.0100, L500.3400 ####[facility] [address] [place], [address] CA,Total 9.6 mg/dL Normal 8.5-10.1 [facility] Comment on above: Performed By: #### L 500.2500, L100.0100, L500.3400 ####[facility] [address] [place], [address] Chloride [Moles/Vol] 104 mmol/L Normal 98-107 [facility] Comment on above: Performed By: #### L 500.2500, L100.0100, L500.3400 ####[facility] [address] [place], [address] CO2 [Moles/Vol] 27.0 mmol/L Normal 21.0-32.0 [facility] Comment on above: Performed By: #### L 500.2500, L100.0100, L500.3400 ####[facility] [address] [place], [address] Creatinine [Mass/Vol] 0.74 mg/dL Normal 0.70-1.30 [facility] Comment on above: Result Comment: The validity of the calculated GFR GFRAA in patients over 70 years has not been determined. Clinical correlation is essential. Performed By: #### L 500.2500, L100.0100, L500.3400 ####[facility] [address] [place], [address] ECRCL 157.91 ml/min Normal [facility] Comment on above: Performed By: #### L 500.2500, L100.0100, L500.3400 ####[facility] [address] [place], [address] EST GFR - AA 173 mL/min Normal >60 [facility] Comment on above: Result Comment: Afri can Argentine GFR Calc Performed By: #### L 500.2500, L100.0100, L500.3400 ####[facility] [address] [place], [address] GAP 7 Normal 5-15 [facility] Comment on above: Performed By: #### L 500.2500, L100.0100, L500.3400 ####[facility] [address] [place], [address] GFR/1.73 sq M.predicted among non-blacks MDRD (S/P/Bld) [Vol rate/Area] 143 mL/min/{1.73_m2} Normal >60 [facility] Comment on above: Result Comment: Non- GFR Calc Performed By: #### L 500.2500, L100.0100, L500.3400 ####[facility] [address] [place], [address] Glucose [Mass/Vol] 122 mg/dL High 74-106 [facility] Comment on above: Result Comment: Fast ing Glucose result from 100 to 125 mg/dL suggests IMPAIRED HOMEOSTASIS per A.D.A. criteria. Performed By: #### L 500.2500, L100.0100, L500.3400 ####[facility] [address] [place], [address] Potassium [Moles/Vol] 4.2 mmol/L Normal 3.5-5.1 [facility] Comment on above: Performed By: #### L 500.2500, L100.0100, L500.3400 ####[facility] [address] [place], [address] Sodium [Moles/Vol] 138 mmol/L Normal 136-145 [facility] Comment on above: Performed By: #### L 500.2500, L100.0100, L500.3400 ####[facility] [address] [place], [address] Urea nitrogen [Mass/Vol] 13 mg/dL Normal 7-18 [facility] Comment on above: Performed By: #### L 500.2500, L100.0100, L500.3400 ####[facility] [address] [place], [address] CBC W/Diff, Automatedon 05-09 SMEAR COMMENT COMMENT Normal [facility] Comment on above: Result Comment: NEUT ROPHILIA. Performed By: #### L 500.2500, L100.0100, L500.3400 ####[facility] [address] [place], [address] Emergency Department Summary on 05-30-2024 Emergency Department Summary [facility] Medical Records Department [address] [place] [address] Emergency Department Summary 05/30/24 MR#: [id number] Acct: [id number] Name: JESSICA BARR Irina Rep #: [id number] : 2005 19 From: Gerhard Maldonado DO PCP: Care Physician,No Primary Status:REG ER Location: ED HPI History of Present Illness Chief Complaint: Sore Throat Informant: patient Narrative Narrative: 19-year-old male presenting to the emergency room with right neck pain. Patient states that about 4 weeks ago he developed whole body aches fatigue and chills. He felt like he was coming down with COVID. States he has been to the emergency room twice as well as urgent care. He was eventually diagnosed with mononucleosis. He states he has not gotten any better in fact he states that his throat feels worse. He notes right-sided neck and throat pain radiates up towards the ear and right side of his face. He wonders if he has a dental abscess. He notes some swelling on the right lateral lower neck. He denies any rashes. He has not followed up with primary care or with ENT. Denies any abdominal trauma pallor. He states the body aches fatigue has resolved. PFSH PFSH Home Medications ???Medication ???Instructions ???Recorded ???Last Taken ???Type prednisone 20 mg tablet 40 mg (2 x 20 mg) PO DAILY 5 days 05/27/24 Unknown Rx #10 tabs Allergy/AdvReac Type Severity Reaction Status Date / Time No Known Allergies Allergy Verified 05/30/24 11:54 Social History Smoking Status: Current every day smoker tobacco type: cigarettes and e-cigarettes ROS ROS ED Constitutional Constitutional ED: Denies chills, fever(s) or weight loss Eyes Eyes: Denies change in vision or diplopia ENT ENT ED: Reports ear pain, sore throat and other Details: Right facial pain ; Denies rhinorrhea Cardiovascular Cardiovascular: Denies chest pain, orthopnea, palpitations or racing heartbeat Respiratory/Chest Respiratory/Chest: Denies cough, dyspnea or orthopnea Gastrointestinal Gastrointestinal: Denies abdominal pain, diarrhea, nausea or vomiting Genitourinary Genitourinary ED: Denies dysuria, hematuria or urinary frequency Musculoskeletal Musculoskeletal: Denies arthralgias or myalgias Integumentary Denies abscess or rash Neurologic Neurologic: Denies headache(s) or weakness Psychiatric Psychiatric: Denies anxiety, depression, suicidal ideation or suicidal thoughts Endocrine Endocrinology: Denies polydipsia, polyphagia or polyuria Allergic/Immunologic Allergic/Immunologic ED: Denies mouth swelling, tongue swelling or urticaria EXAM Physical Exam Const Vital Signs: 05/30/24 11:54 05/30/24 15:53 Temperature 97.2 F L Temperature Source Temporal Pulse Rate 69 77 Respiratory Rate 18 16 Blood Pressure 139/84 H Blood Pressure Mean 102 Pulse Ox 97 99 Oxygen Delivery Method Room Air Room Air Positive well nourished and well developed General Appearance ED: well developed HEENT Reports normocephalic, head/scalp atraumatic and moist mucous membranes HEENT Narrative: I do not appreciate any palatal petechiae. No significant erythema. I do not appreciate any peritonsillar or retropharyngeal abscesses. The tonsils do not appear erythematous or with significant exudate. Uvula appears normal. Floor the mouth is normal. There is no trismus. Tympanic membranes appear normal. There is tenderness and what appears to be enlarged lymph node in the right neck along the sternocleidomastoid muscle. No significant overlying erythema. He notes that this is extremely tender when I palpated and have made his pain in his throat worse. There is no muffled voice or drooling. No meningeal signs. Eyes PERRL and EOMs intact bilaterally Neck supple and no JVD General: tenderness Resp normal respiratory effort and clear to auscultation bilaterally Cardio regular rate, regular rhythm and no murmurs GI normal to inspection, nondistended, normoactive bowel sounds and non-tender Palpation: soft Back/Spine no CVA tenderness and normal ROM Extremity normal to inspection General Extremety ED: Negative for edema General Extremity: Negative for edema Neuro oriented x3 and CN's II-XII intact bilaterally Sensorium / Orientation: alert Motor Exam: strength 5/5 throughout Psych mental status grossly normal Mood Affect: Negative for depressed or tearful Skin no rashes or lesions noted and no wounds MDM MDM MDM Narrative Medical decision making narrative: Differential diagnosis includes but not limited to mononucleosis peritonsillar retropharyngeal pharyngeal and tonsillar abscesses epiglottitis lymphadenopathy otitis media Based on the patient's history and the physical I obtained basic blood work and a CT o (more content not included)... Normal [facility] H AND P Exam - Hospitaliston 05-30-2024 H&P Exam - Hospitalist [facility] Medical Records Department [address] [place] [address] H P Exam - Hospitalist 05/30/24 1724 MR#: [id number] Acct: [id number] Name: JESSICA BARR Rep #: [id number] : 2005 19 From: Felecia Roland MD PCP: Care Physician,No Primary Status:ADM IN Location: ICU ICU10-1 HPI - General General Date of Admission: 05/30/24 Date of Service: 05/30/24 Chief Complaint: Right sided neck pain and swelling HPI Narrative JESSICA BARR, is a 19 M with history of tobacco use presented to [facility] ED with right neck pain and swelling. Initially began to have whole body aches and was feeling unwell 4 weeks ago was diagnosed with mono, couple days ago came in with feeling generally unwell and some right sided throat pain was started on prednisone. He is continue to feel worse so he Re-presented today. He had a right sided palpable mass had a CT which showed hypodense mass on right side of neck. ENT evaluated and advised admission to ICU with close monitoring and IV antibiotics and a dose of IV steroids. There was discussion of possible transfer for patient but no beds available and patient prefers staying at our institution. ED physician discussed again with ENT provider who is agreeable to plan for patient to stay here with close monitoring in ICU. Hospitalist contacted for admission was evaluated at bedside. Reports he is had the neck swelling and pain for about a week and has a little bit of difficult time/change with some of his talking and eating slightly breathing but this has been progressive over the past week and not hyperacute. No fevers or other new or acute complaints COUNTS INCLUDE 234 BEDS AT THE [facility] Home Medications ???Medication ???Instructions ???Recorded ???Last Taken ???Type prednisone 20 mg tablet 40 mg (2 x 20 mg) PO DAILY 5 days 05/27/24 Unknown Rx #10 tabs Allergy/AdvReac Type Severity Reaction Status Date / Time No Known Allergies Allergy Verified 05/30/24 11:54 Social History Smoking Status: Current every day smoker tobacco type: cigarettes and e-cigarettes ROS ROS Narrative General: Denies fever/chills but has had some bodyaches HENT: Intermittently some right sided headache when laying down, not bilateral, denies stuffy nose, sore throat on right side EYES: Denies changes in vision Resp: Denies cough, denies overt shortness of breath but does note change in talking on swallowing to some extent Cardiac: Denies chest pain GI: Denies abdominal pain, denies changes in bowel, denies nausea/vomiting : Denies changes in urination Extremity: Denies swelling MSK: Denies weakness Neuro: Denies any numbness/tingling Heme: Denies any bleeding or bruising Skin: Denies rashes Psychiatric: No complaints voiced Vital Signs Vital Signs Vital Signs: 05/30/24 11:54 05/30/24 15:53 05/30/24 17:05 Temperature 97.2 F L Temperature Source Temporal Pulse Rate 69 77 57 L Respiratory Rate 18 16 20 H Blood Pressure 139/84 H Blood Pressure Mean 102 Pulse Ox 97 99 Oxygen Delivery Method Room Air Room Air 05/30/24 17:07 Temperature 98.1 F Temperature Source Temporal Pulse Rate 55 L Respiratory Rate 20 H Blood Pressure 102/91 H Blood Pressure Mean 94 Pulse Ox 97 Oxygen Delivery Method Weight Weight: 78.653 kg Body Mass Index (BMI) 25.6 Physical Exam Narrative General: Alert, oriented, no apparent distress HEENT: Atraumatic, normocephalic Eyes: Anicteric, normal conjunctiva, extraocular movements grossly intact Neck: Supple, right sided palpable mass on lateral neck, pharynx overall unremarkable Respiratory: Clear to auscultation bilaterally, normal respiratory effort Cardiovascular: Regular rate and rhythm GI: Soft, nontender, nondistended Extremities: No edema Musculoskeletal: Moving all extremities Neuro: No overt focal neurological deficits Skin: No rashes appreciated Psych: Cooperative Results Lab / Micro Data 05/30/24 13:40 05/30/24 13:40 Labs: Laboratory Results - last 24 hr 05/30/24 13:40: WBC 28.6 H, RBC 4.80, Hgb 13.9, Hct 41.6, MCV 86.7, MCH 29.0, MCHC 33.4, RDW Std Deviation 42.1, RDW Coeff of Emigdio 13.2, Plt Count 638 H, MPV 9.0, Immature Gran % (Auto) 1.100 H, N eut % (Auto) 90.2 H, Lymph % (Auto) 3.9 L, [place] % (Auto) 4.5, Eos % (Auto) 0.0, Baso % (Auto) 0.3, A bsolute Neuts (auto) 25.8 H, Absolute Lymphs (auto) 1.12, Nucleated RBC % 0, Differential Comment COMMENT, Sodium 138, Potassium 4.2, Chloride 104, Carbon Dioxide 27.0, Anion Gap 7, BUN 13, Creatinine 0.74, Estim Creat Clear Calc 157.91, Est GFR (MDRD) Af Amer 173, Est GFR (MDRD) Non-Af 143, BUN/Creatinine Ratio 17.7, Glucose 122 H, Calcium 9.6, Total Bilirubin 0.50, Direct Bilirubin 0.17, AST 9 L, ALT 15 L, Alkali (more content not included)... Normal [facility] Liver Profileon 05-30-2024 Albumin [Mass/Vol] 3.5 g/dL Normal 3.2-5.0 [facility] Comment on above: Performed By: #### L 500.2500, L100.0100, L500.3400 ####[facility] [address] [place], [address] ALK P 94 U/L Normal 45-117 [facility] Comment on above: Performed By: #### L 500.2500, L100.0100, L500.3400 ####[facility] [address] [place], [address] ALT [Catalytic activity/Vol] 15 U/L Low 16-61 [facility] Comment on above: Performed By: #### L 500.2500, L100.0100, L500.3400 ####[facility] [address] [place], [address] AST [Catalytic activity/Vol] 9 U/L Low 15-37 [facility] Comment on above: Performed By: #### L 500.2500, L100.0100, L500.3400 ####[facility] [address] [place], [address] Bilirubin [Mass/Vol] 0.50 mg/dL Normal 0.20-1.00 [facility] Comment on above: Result Comment: For patients on eltrombopag therapy, use of Dimension [place] TBIL is not recommended. Performed By: #### L 500.2500, L100.0100, L500.3400 ####[facility] [address] [place], [address] Bilirubin.direct [Mass/Vol] 0.17 mg/dL Normal 0.00-0.30 [facility] Comment on above: Performed By: #### L 500.2500, L100.0100, L500.3400 ####[facility] [address] [place], [address] Globulin (S) [Mass/Vol] 4.4 g/dL High 2.2-4.2 [facility] Comment on above: Performed By: #### L 500.2500, L100.0100, L500.3400 ####[facility] [address] [place], [address] T PROT 7.9 g/dL Normal 6.4-8.2 [facility] Comment on above: Performed By: #### L 500.2500, L100.0100, L500.3400 ####[facility] [address] [place], [address] Operative Reporton 4 Operative Report [facility] Medical Records Department [address] [place] [address] Operative Report 05/30/24 1531 MR#: [id number] Acct: [id number] Name: JESSICA BARR Irina Rep #: [id number] : 2005 19 From: Yuriy Ding MD PCP: Care Physician,No Primary Status:REG ER Location: ED Problems Associated Problem List Diagnoses (1) Abscess of neck: Report of Operation Date of Procedure: 05/30/24 Pre-Operative Diagnosis: right lateral pharyngeal wall abscess Post-Operative Diagnosis: right lateral pharyngeal wall abscess Surgery/Procedure Performed:: flexible laryngoscopy Surgeon: Yuriy Ding Description of Procedure: scope introduced to left nasal cavity. nasopharyngeal secretions cleared. fullness of right lateral pharyngeal wall / tongue base. right piriform fullness. glottis crisp, cords mobile. 05/30/24 1533 Cosigner Signature (if applicable): CC: Dr. Yuriy Ding MD; No Primary Care Physician Signed Normal [facility] Soft Tissue Neck WITH Contra ston 05-30-2024 Soft Tissue Neck WITH Contrast [facility] Imaging Services [address] [place] [address] Soft Tissue Neck WITH Contrast MR#: [id number] Acct: [id number] Name: JESSICA BARR Irina Rep #: [id number] : 2005 M 19 From: Servando addison MD PCP: Care Physician,No Primary Status: REG ER Study: Soft Tissue Neck WITH Contrast Date of Exam: 0 05/30/24 Exam# [id number] Ordering Dr: Gerhard Maldonado DO [id number] STUDY: CT SOFT TISSUE NECK WITH CONTRAST REASON FOR EXAM: Male, 19 years old. Four-week history of sore throat. RADIATION DOSAGE (If Supplied By Facility): CTDIvol = ( 18.02 ) mGy, DLP = ( 519.62 ) mGycm TECHNIQUE: The patient was scanned in a multi-detector CT scanner. High resolution transaxial imaging was performed following intravenous administration of IV 75mL Isovue-300. Sagittal and coronal images were reconstructed. Individualized dose optimization techniques were used for this CT. COMPARISON: None. FINDINGS: Normal bilateral parotid glands. Normal bilateral marker delivery spaces. Normal bilateral parapharyngeal spaces. Normal bilateral carotid spaces. Normal bilateral sublingual and submandibular glands and spaces. Normal visualized nasopharynx. Normal retropharyngeal space. Normal perivertebral space. There is a 3.5 cm x 2.6 cm x 3.1 cm hypodense soft tissue mass arising from the right palatine tonsils and extending towards the right oropharynx with thickening of the epiglottis as well as the right aryepiglottic folds. This may represent tonsillitis with developing abscess. Clinical correlation recommended. There are minimally enlarged lymph nodes of the neck, with preservation of normal glenn architecture, consistent with a reactive lymph hyperplasia. There is no demonstrated solid or cystic mass lesion. There is no abnormal contrast enhancement. Normal epiglottis, bilateral vallecula and hypopharynx. The pre-epiglottic and paraglottic adipose spaces are normal. Normal visualized bilateral piriform sinuses, aryepiglottic folds, vocal cords, and arytenoid-cricoid articulations. Normal subglottic trachea. Normal bilateral lobes of the thyroid gland. Normal visualized pulmonary apices. Normal visualized paranasal sinuses. Normal visualized cervical spine. CT/Soft Tissue Neck WITH Contrast IMPRESSION: 3.5 cm x 2.6 cm x 3.1 cm hypodense soft tissue mass rising from the right side of the tonsils and extending towards the right oropharynx with thickening of the epiglottis as well as the right aryepiglottic folds. An abscess should be ruled out. Small right cervical lymph nodes. Electronically Signed: Servando Felix MD at 14:23 EDT , CC: Dr. Gerhard Maldonado, DO; No Primary Care Physician Linen Room Supervisor: Signed Normal [facility] Emergency Department Summary on 05-27-2024 Emergency Department Summary [facility] Medical Records Department [address] [place] [address] Emergency Department Summary 05/27/24 MR#: [id number] Acct: [id number] Name: JESSICA BARR Irina Rep #: [id number] : 2005 19 From: Jacques Paul MD PCP: Care Physician,No Primary Status:DEP ER Location: ED HPI HPI - URI History of Present Illness Chief Complaint: Sore Throat Informant: patient Onset/Context/Timing Onset: Weeks Context: Gradual Onset Timing: Continuous Current Severity: Mild Maximum Severity: Mild Worsened by: Swallowing Associated Symptoms Associated Symptoms: Positive for Myalgias Narrative Narrative: Healthy 19-year-old male. Has not felt well for the last 2 weeks. Has been in the urgent care had negative strep test. Was seen here diagnosed with mono and a positive monotest. He had a CT soft tissue neck which was questionable for epiglottitis but that he had direct visualization through a nasal scope and there was no epiglottitis. Just says he feels tired and he has soreness in his neck. He is able to swallow. He is able to breathe. No vomiting or diarrhea. Prior similar symptoms: Yes Recent Illness/Hospitalizatio n: No ROS ROS ED ROS Narrative Body aches and sore throat. Constitutional Constitutional ED: Denies chills or fever(s) Eyes Eyes: Denies blurry vision ENT ENT ED: Reports sore throat; Denies ear pain Cardiovascular Cardiovascular: Denies chest pain Respiratory/Chest Respiratory/Chest: Denies cough or dyspnea Gastrointestinal Gastrointestinal: Denies abdominal pain Genitourinary Genitourinary ED: Denies dysuria Musculoskeletal Musculoskeletal: Denies arthralgias Integumentary Denies abscess Neurologic Neurologic: Denies headache(s) Psychiatric Psychiatric: Denies anxiety Endocrine Endocrinology: Denies cold intolerance Hematologic/Lymphatic Hematologic/Lymphatic: Denies easy bleeding Allergic/Immunologic Allergic/Immunologic ED: Denies mouth swelling PFSH PFSH Medical History no medical history no medical history Home Medications ???Medication ???Instructions ???Recorded ???Last Taken ???Type prednisone 20 mg tablet 40 mg (2 x 20 mg) PO DAILY 5 days 05/27/24 Unknown Rx #10 tabs Allergy/AdvReac Type Severity Reaction Status Date / Time No Known Allergies Allergy Verified 05/27/24 07:19 Social History Smoking Status: Current every day smoker tobacco type: cigarettes and e-cigarettes EXAM Physical Exam Narrative Exam Narrative: 19-year-old male no acute distress vital signs stable afebrile. Pulse ox 97% on room air no signs of hypoxia. H EENT exam is mild erythematous posterior pharynx. Tonsils are not touching. Uvula is not significantly enlarged. There is no stridor or drooling. No trouble breathing or swallowing. He came a glass of water he could drink that. I laid him flat in bed he could breathe without any difficulty. TMs are normal. Moist mucous membranes. Neck is mild anterior chain lymphadenopathy. Trachea midline nontender. Lungs clear to auscultation bilaterally. Heart regular rhythm rate about 80 no murmur. Chest wall nontender. Abdomen soft nontender. No organomegaly or tenderness. There is no axillary or inguinal lymphadenopathy. Moving all 4 extremities. Nontender no edema. Back nontender. He is awake and alert no focal motor deficits. Const Vital Signs: 05/27/24 07:19 Temperature 97.5 F L Temperature Source Temporal Pulse Rate 80 Respiratory Rate 16 Blood Pressure 124/74 H Blood Pressure Mean 90 Pulse Ox 97 Oxygen Delivery Method Room Air Positive well nourished and well developed; Negative for obese, cachectic or contractures General Appearance ED: well developed and NAD; Negative for cachectic, contractures, cyanotic, diaphoretic or pallor Nutritional Appearance: Negative for cachectic or obese HEENT Reports moist mucous membranes normocephalic and atraumatic; Negative for scalp tenderness Face and Sinus: Negative for sinus tenderness Teeth and Gingiva: Negative for caries Throat: posterior oropharynx abnormal Positive for erythema Eyes PERRL and EOMs intact bilaterally General Eye ED: Negative for pale conjunctiva or scleral icterus Neck No no lymphadenopathy, supple, no meningeal signs and no JVD General: lymphadenopathy Resp normal respiratory effort and clear to auscultation bilaterally Effort and Inspection: Negative for retractions Auscultation: Negative for rales, rhonchi or wheezes Cardio S1 normal heart sound, S2 normal heart sound and no murmurs Rate: regular rate GI non-tender, non-distended and no masses Inspection: Negative for abdominal distention Auscultation: normoactive bowel sounds Palpation: soft; Negative for tender or guarding Back/Spine (more content not included)... Normal [facility] CBC W/Diff, Automatedon 05-08 PATH REV Reviewed Normal [facility] Comment on above: Result Comment: Neut rophilic leukocytosis. Clinical correlation necessary. Casimiro Wynn M.D. 05/26/24 AMENDED REPORT 05/26/24 1506 PATH REV previously reported as: January zeeshan Performed By: #### L [id number], L100.0100 #### [facility] [address] [place], [address] Emergency Department Summary on 05-25-2024 Emergency Department Summary [facility] Medical Records Department [address] [place] [address] Emergency Department Summary 05/25/24 MR#: [id number] Acct: [id number] Name: JESSICA BARR Rep #: [id number] : 2005 19 From: Lupillo Alvarado MD PCP: Care Physician,No Primary Status:REG ER Location: ED HPI History of Present Illness Chief Complaint: Sore Throat Detail of Chief Complaint: Sore throat x 3 weeks Informant: patient Onset/Context/Timing Onset: Weeks Context: Sudden Onset Timing: Continuous Quality: Patient reports difficulty breathing supine position this morning Location: Bilateral anterior neck pain Current Severity: Mild Maximum Severity: Moderate Worsened by: Swallowing Relieved by: Nothing Associated Symptoms Associated Symptoms: Slight change in voice Narrative Narrative: Patient is a 19-year-old male. He has been to multiple urgent cares for his throat throat. Symptoms started 3 weeks ago. He has been tested for strep, COVID, influenza. No blood work has been taken. He is unaware of any ill contacts. He states the first day he had a fever. Not had a fever since. He does have a cough. He has a chronic cough since he is a smoker. His cough is essentially nonproductive. He denies chest pain or shortness of breath. He denies rhinorrhea, congestion or postnasal drainage. He denies abdominal pain. He denies myalgias or arthralgias. Prior similar symptoms: Yes Recent Illness/Hospitalizatio n: Yes PFSH PFSH Allergy/AdvReac Type Severity Reaction Status Date / Time No Known Allergies Allergy Verified 05/25/24 09:02 Surgical History no surgical history no surgical history Social History (Updated 05/25/24 @ 09:[address] Lupillo Alvarado MD) Smoking Status: Current every day smoker tobacco type: cigarettes and e-cigarettes ROS ROS ED Constitutional Constitutional ED: Denies chills, fever(s), subjective or sweats Eyes Eyes: Denies blurry vision or change in vision ENT ENT ED: Reports sore throat; Denies ear pain or rhinorrhea Cardiovascular Cardiovascular: Denies chest pain, palpitations or racing heartbeat Respiratory/Chest Respiratory/Chest: Denies cough, dyspnea or dyspnea on exertion Gastrointestinal Gastrointestinal: Denies abdominal pain, nausea or vomiting Musculoskeletal Musculoskeletal: Denies arthralgias, myalgias or neck pain Integumentary Denies rash Hematologic/Lymphatic Hematologic/Lymphatic: Denies easy bleeding or easy bruising Allergic/Immunologic Allergic/Immunologic ED: Denies mouth swelling or tongue swelling EXAM Physical Exam Const Vital Signs: 05/25/24 09:02 Temperature 98.9 F Temperature Source Oral Pulse Rate 94 Respiratory Rate 18 Blood Pressure 123/109 H Blood Pressure Mean 113 Pulse Ox 97 Oxygen Delivery Method Room Air Positive well nourished and well developed Constitutional Narrative: Patient's voice is slightly hoarse. General Appearance ED: well developed and NAD; Negative for pallor HEENT Reports moist mucous membranes HEENT Narrative: Head is atraumatic normocephalic. Ears normal. Nares patent no discharge. Posterior pharynx remarkable for enlarged erythematous tonsils. Tonsils are abutting his uvula. There is no displacement of the uvula. There is no exudate. Eyes PERRL and EOMs intact bilaterally General Eye ED: Negative for pale conjunctiva or scleral icterus Neck no lymphadenopathy and supple Neck Narrative: Trachea is midline. There is no in-store expiratory stridor. Chest Wall inspection of chest normal and palpation of chest normal Resp normal respiratory effort and clear to auscultation bilaterally Cardio regular rate, regular rhythm, S1 normal heart sound, S2 normal heart sound and no murmurs Extremity normal to inspection Neuro oriented x3 and CN's II-XII intact bilaterally Sensorium / Orientation: alert Psych mental status grossly normal Skin no rashes or lesions noted and skin turgor normal General Skin Exam: elasticity normal; Negative for jaundice or pallor MDM MDM MDM Narrative Medical decision making narrative: Differential diagnosis would include viral illness, mononucleosis, need to evaluate for retropharyngeal abscess, parapharyngeal abscess. Because his complaint of trouble breathing and certain position soft tissue x-ray of the neck was obtained. Since there is no swelling of the neck, trachea is not displaced and there is no discomfort with moving the trachea and the patient has no stridor CT was not ordered initially. CBC was obtained to assess white count and assess for atypical lymphocytes as well as Monospot. Lab Data Attestation: I reviewed the patient's lab results. Lab results narrative: White count is elevated 17.1 with mild shift. There is no bandemia. There is no atypical lymphocytes noted either. M (more content not included)... Normal [facility] [place] 05-25-2024 Monocytes (Bld) [#/Vol] Positive Abnormal Negative [facility] Comment on above: Performed By: #### L [id number], L100.0100 #### [facility] [address] [place], [place], [id number] Neck for Soft Tissueon 05-25 Neck for Soft Tissue [facility] Imaging Services [address] [place], [place] [id number] Neck for Soft Tissue MR#: [id number] Acct: [id number] Name: JESSICA BARR Rep #: [id number] : 2005 M 19 From: Servando addison MD PCP: Care Physician,No Primary Status: REG ER Study: Neck for Soft Tissue Date of Exam: 05/25/24 Exam# [id number] Ordering Dr: Lupillo Alvarado MD [id number] STUDY: X-RAY - SOFT TISSUE NECK REASON FOR EXAM: Male, 19 years old. Throat pain, difficulty breathing TECHNIQUE: 2 view(s) of the neck were obtained. COMPARISON: None. FINDINGS: Normal visualized nasopharynx, oropharynx, hypopharynx. There is a swollen epiglottis with a ?thumb-like? appearance, and with thickening of the aryepiglottic folds, consistent with acute epiglottis. Normal visualized subglottic tracheal air column. Normal prevertebral soft tissue structures. Normal visualized osseous structures. The soft tissue structures are unremarkable. Straightening of the normal cervical lordosis. RAD/Neck for Soft Tissue IMPRESSION: Findings suggestive of epiglottitis. Electronically Signed: Servando Felix MD at 10:06 EDT , CC: Dr. Lupillo Alvarado MD; No Primary Care Physician Linen Room Supervisor: Signed Normal [facility] CNOVon 05-13-2024 CNOV Office Visit ([facility] ) JESSICA BARR ([id number]) 1 M Date Time Provider Department 05/13/24 12:15 PM IVONNE COOPER [facility] During your visit today, we recorded the following information about you: Temperature Pulse Respiration Blood pressure 99 degrees 111/minute 20/minute 115/76 Weight 79 kg Ivonne Cooper APRN.[facility] 05/13/2024 12:37 PM Signed Subjective Fever Associated symptoms include headaches and sore throat. Pertinent negatives include no chest pain, no diarrhea, no vomiting, no congestion and no cough. Jessica Barr is a 19 year old male who presents with sore throat, body aches, headache since yesterday. He has not had a fever over 101 degrees F. He took ibuprofen this morning. He has not had any known sick contacts. Review of Systems Constitutional: Positive for malaise/fatigue. Negative for chills and fever. HENT: Positive for sore throat. Negative for congestion and ear pain. Respiratory: Negative for cough and sputum production. Cardiovascular: Negative for chest pain. Gastrointestinal: Negative for diarrhea, nausea and vomiting. Musculoskeletal: Positive for myalgias. Neurological: Positive for headaches. BP 115/76 Pulse 111 Temp 37.2 ?C (99 ?F) Resp 20 Wt 79 kg (174 lb 2.6 oz) SpO2 98% PAST MEDICAL HISTORY No date: ADHD (attention deficit hyperactivity disorder) Comment: 12 y.o. 04/2021: COVID-19 No date: Nasal fracture Comment: 3 y.o No date: Otitis media in diseases classified elsewhere, bilateral Comment: 7 y.o. PAST SURGICAL HISTORY 2006: W EAR TUBE Comment: bilateral years ALLERGIES Patient has no known allergies. MEDICATIONS buPROPion XL (WELLBUTRIN XL) 150 mg 24 hr tablet Take 1 tablet by mouth once daily. miconazole (LOTRIMIN AF) 2 % powder Apply 1 application to affected area once daily. (Patient not taking: Reported on 02/29/2024) ibuprofen (ADVIL) 200 mg tablet Take 200 mg by mouth every 6 hours as needed. (Patient not taking: Reported on 01/29/2024) FAMILY HISTORY Problem Relation Age of Onset Diabetes Maternal Grandmother Coronary Artery Disease Maternal Grandfather ND Coronary Artery Disease Paternal Grandfather ND Breast Cancer Other Social History Tobacco Use Smoking status: Every Day Current packs/day: 1.00 Average packs/day: 1 pack/day for 8.1 years (8.1 ttl pk-yrs) Types: Cigarettes Start date: 2016 Smokeless tobacco: Never Vaping Use Vaping status: Never Used Substance Use Topics Alcohol use: Yes Comment: 12 pack every other weekend Drug use: Never Objective Physical Exam Vitals and nursing note reviewed. Constitutional: General: He is not in acute distress. Appearance: Normal appearance. He is not ill-appearing. HENT: Right Ear: Tympanic membrane, ear canal and external ear normal. Left Ear: Tympanic membrane, ear canal and external ear normal. Nose: Nose normal. Mouth/Throat: Mouth: Mucous membranes are moist. Pharynx: Uvula midline. Posterior oropharyngeal erythema present. No oropharyngeal exudate. Tonsils: Tonsillar exudate present. 2+ on the right. 2+ on the left. Cardiovascular: Rate and Rhythm: Normal rate and regular rhythm. Heart sounds: Normal heart sounds. Pulmonary: Effort: Pulmonary effort is normal. No respiratory distress. Breath sounds: Normal breath sounds. No wheezing or rales. Musculoskeletal: Cervical back: Neck supple. Lymphadenopathy: Cervical: No cervical adenopathy. Skin: General: Skin is warm and dry. Findings: No erythema or rash. Neurological: Mental Status: He is alert. ASSESSMENT/PLAN: 1. Sore throat - ICD9: 462, ICD10: J02.9 (primary diagnosis) - suspect viral - Group A strep molecular testing negative - Discussed supportive care treatment with fluids, rest and analgesia. - STREP A MOLECULAR (POC) 2. Viral illness - ICD9: 079.99, ICD10: B34.9 - Discussed viral etiology and rationale for treatment. - Symptomatic treatment with prn analgesia - Supportive care with fluids and rest - COVID AND INFLUENZA A/B AND RSV PCR, ROUTINE - Follow-up with your PCP in 3-5 days if symptoms have not improved or sooner if symptoms worsen - Discussed red flags and need for immediate medical evaluation if any occur. - Discussed supportive care treatment with fluids, rest and analgesia. - Discussed expected course of illness Ivonne Cooper APRN.Ivonne Otto APRN.CNP 05/13/2024 12:37 PM Signed ASSESSMENT/PLAN: 1. Sore throat - ICD9: 462, ICD10: J02.9 (primary diagnosis) - suspect viral - Group A strep molecular testing negative - Discussed supportive care treatment with fluids, rest and analgesia. - STREP A MOLECULAR (POC) 2. Viral illness - ICD9: 079.99, ICD10: B34.9 - Discussed viral etiology and rationale for treatment. - Symptomatic treatment with prn analgesia - Supportive care wit (more content not included)... Normal [facility] COVID AND INFLUENZA A/B AND RSV PCR, ROUTINEon 05-13-2024 SARS-CoV-2 (COVID-19) RNA TRAY+probe Ql (Unsp spec) SARS-COV-2 (AGENT OF COVID-19) RNA: Not detected INFLUENZA A RNA: Not detected INFLUENZA B RNA: Not detected RESPIRATORY SYNCYTIAL VIRUS (RSV) RNA: Not detected Normal [facility] Comment on above: Performed By: #### C VFLRS ####[facility] [id number] OF [facility] STREP A MOLECULAR (POC)on Procedural Control Valid [facility] Strep A (POCT) Negative Negative [facility] CNOVon 04-26-2024 CNOV Office Visit ([facility] ) JESSICA BARR ([id number]) 1 M Date Time Provider Department 04/26/24 2:15 PM LUL BROWN [facility] During your visit today, we recorded the following information about you: Temperature Pulse Respiration Blood pressure 98.5 degrees 85/minute 20/minute 129/89 Weight 78 kg Lul Brown APRN.[employer] 04/26/2024 2:14 PM Signed Subjective HPI Nontoxic-appearing male presents urgent care chief complaint flu like symptoms. Duration of symptoms 2 days. 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 No OTC medications. No known sick contacts. Does work in public. Denies any fever productive cough chest pain shortness of breath pleuritic pain hemoptysis nausea vomiting abdominal pain change in bowel or bladder habits. Past medical history prescription medication use and allergies reviewed. .Patient presents with: Cough: Headache, sore throat, body aches x 2 days PAST MEDICAL HISTORY No date: ADHD (attention deficit hyperactivity disorder) Comment: 12 y.o. 04/2021: COVID-19 No date: Nasal fracture Comment: 3 y.o No date: Otitis media in diseases classified elsewhere, bilateral Comment: 7 y.o. PAST SURGICAL HISTORY 2006: W EAR TUBE Comment: bilateral years ALLERGIES Patient has no known allergies. MEDICATIONS buPROPion XL (WELLBUTRIN XL) 150 mg 24 hr tablet Take 1 tablet by mouth once daily. miconazole (LOTRIMIN AF) 2 % powder Apply 1 application to affected area once daily. (Patient not taking: Reported on 02/29/2024) ibuprofen (ADVIL) 200 mg tablet Take 200 mg by mouth every 6 hours as needed. (Patient not taking: Reported on 01/29/2024) FAMILY HISTORY Problem Relation Age of Onset Diabetes Maternal Grandmother Coronary Artery Disease Maternal Grandfather ND Coronary Artery Disease Paternal Grandfather ND Breast Cancer Other Social History Tobacco Use Smoking status: Every Day Current packs/day: 1.00 Average packs/day: 1 pack/day for 8.0 years (8.0 ttl pk-yrs) Types: Cigarettes Start date: 2016 Smokeless tobacco: Never Vaping Use Vaping status: Never Used Substance Use Topics Alcohol use: Yes Comment: 12 pack every other weekend Drug use: Never BP 129/89 Pulse 85 Temp 36.9 ?C (98.5 ?F) Resp 20 Wt 78 kg (171 lb 15.3 oz) SpO2 97% Review of Systems Constitutional: Positive for chills and malaise/fatigue. Negative for fever. HENT: Positive for congestion and sore throat. Negative for ear discharge, ear pain and sinus pain. Eyes: Negative for blurred vision, pain, discharge and redness. Respiratory: Positive for cough. Negative for hemoptysis, sputum production, shortness of breath, wheezing and stridor. Cardiovascular: Negative for chest pain. Gastrointestinal: Negative for abdominal pain, diarrhea, nausea and vomiting. Musculoskeletal: Positive for myalgias. Skin: Negative for itching and rash. Neurological: Positive for headaches. Negative for dizziness. Objective Physical Exam Constitutional: General: He is not in acute distress. Appearance: He is not diaphoretic. HENT: Head: Normocephalic. Jaw: No trismus, tenderness, swelling or pain on movement. Nose: Congestion present. Mouth/Throat: Mouth: Mucous membranes are moist. Pharynx: Oropharynx is clear. Uvula midline. No pharyngeal swelling, oropharyngeal exudate, posterior oropharyngeal erythema or uvula swelling. Eyes: Conjunctiva/sclera: Conjunctivae normal. Pupils: Pupils are equal, round, and reactive to light. Cardiovascular: Rate and Rhythm: Normal rate and regular rhythm. Heart sounds: Normal heart sounds. Pulmonary: Effort: Pulmonary effort is normal. No tachypnea, accessory muscle usage or respiratory distress. Breath sounds: Normal breath sounds. No stridor. No wheezing, rhonchi or rales. Abdominal: General: There is no distension. Palpations: Abdomen is soft. Tenderness: There is no abdominal tenderness. There is no guarding or rebound. Musculoskeletal: Cervical back: Normal range of motion and neck supple. No edema, erythema, rigidity or tenderness. No pain with movement. Normal range of motion. Lymphadenopathy: Cervical: No cervical adenopathy. Skin: General: Skin is warm and dry. Neurological: Mental Status: He is alert and oriented to person, place, and time. ASSESSMENT/PLAN: 1. Viral illness - ICD9: 079.99, ICD10: B34.9 Diagnosed with viral illness. No evidence of bacterial infection. Patient was educated on supportive therapies. Patient will follow up with primary care provider as needed. Patient was instructed to immediately proceed to emergency room for any new, worsening, or symptoms lasting longer than anticipated. The patient's clinical presentation is otherwise unremarkable at this time. Based on exam and clinical finding, the patient is stable for discharge (more content not included)... Normal [facility] CNOVon 03-18-2024 CNOV Office Visit ([facility] ) JESSICA BARR ([id number]) 1 M Date Time Provider Department 03/18/24 1:15 PM LAVERNE ZAMBRANO [facility] During your visit today, we recorded the following information about you: Temperature Pulse Respiration Blood pressure 97.1 degrees 78/minute 16/minute 128/68 Weight 79 kg Laverne Zambrano APRN.[employer] 03/18/2024 2:15 PM Signed Subjective HPI HPI Jessica Irina Barr is a 18 year old male who presents today for CC of st, cough. This started 2 months ago. Has tried otc medication for relief. Symptoms are worsened by nothing. Risk factors smoker/vapes. Denies concerns for std. .Patient presents with: Sore Throat: Cough x2 mths PAST MEDICAL HISTORY Diagnosis Date ADHD (attention deficit hyperactivity disorder) 12 y.o. COVID-19 04/2021 Nasal fracture 3 y.o Otitis media in diseases classified elsewhere, bilateral 7 y.o. PAST SURGICAL HISTORY Procedure Laterality Date W EAR TUBE 2005 bilateral years ALLERGIES Patient has no known allergies. MEDICATIONS buPROPion XL (WELLBUTRIN XL) 150 mg 24 hr tablet Take 1 tablet by mouth once daily. miconazole (LOTRIMIN AF) 2 % powder Apply 1 application to affected area once daily. (Patient not taking: Reported on 02/29/2024) ibuprofen (ADVIL) 200 mg tablet Take 200 mg by mouth every 6 hours as needed. (Patient not taking: Reported on 01/29/2024) FAMILY HISTORY Problem Relation Age of Onset Diabetes Maternal Grandmother Coronary Artery Disease Maternal Grandfather ND Coronary Artery Disease Paternal Grandfather ND Breast Cancer Other Social History Tobacco Use Smoking status: Every Day Packs/day: 1.00 Years: 5.00 Additional pack years: 0.00 Total pack years: 5.00 Types: Cigarettes Start date: 2016 Smokeless tobacco: Never Vaping Use Vaping Use: Never used Substance Use Topics Alcohol use: Yes Comment: 12 pack every other weekend Drug use: Never ROS Objective Blood pressure 128/68, pulse 78, temperature 36.2 ?C (97.1 ?F), resp. rate 16, weight 79 kg (174 lb 2.6 oz), SpO2 96%. Physical Exam Constitutional: General: He is not in acute distress. Appearance: He is not toxic-appearing or diaphoretic. HENT: Head: Normocephalic and atraumatic. Mouth/Throat: Lips: [place]. Mouth: Mucous membranes are moist. Pharynx: Uvula midline. Posterior oropharyngeal erythema present. Pulmonary: Effort: Pulmonary effort is normal. No accessory muscle usage or respiratory distress. Lymphadenopathy: Cervical: Cervical adenopathy present. Right cervical: Superficial cervical adenopathy present. Left cervical: Superficial cervical adenopathy present. Neurological: Mental Status: He is alert and oriented to person, place, and time. ASSESSMENT/PLAN: 1. Subacute cough - ICD9: 786.2, ICD10: R05.2 (primary diagnosis) Discussed smoking cessation. F/u with pcp if s/s persist. - XR CHEST 2V FRONTAL/LAT - PREDNISONE 20 MG TABLET 2. Sore throat - ICD9: 462, ICD10: J02.9 - suspect viral - Group A strep molecular testing negative - Discussed supportive care treatment with fluids, rest and analgesia. - The patient should follow up in 3-5 days if symptoms persist or worsen - STREP A MOLECULAR (POC) Laverne Zambrano APRN.[employer] Allergies As of Date: 03/18/2024 (No Known Allergies) Date Reviewed: 03/18/2024 Reviewed by: Kimberly Jackson - Fully Assessed Reason for Visit: Sore Throat [200] Cmt: Cough x2 mths Primary Visit Diagnosis:Subacute cough [R05.2] Other Visit Diagnosis:Sore throat [J02.9] Order(s):STREP A MOLECULAR (POC) [1045611] Order #: [id number]. #:[id number] XR CHEST 2V FRONTAL/LAT [[id number]] Order #: [id number]. #:[id number] predniSONE (DELTASONE) 20 mg tabletTake 2 tablets by mouth once daily for 5 days.Disp: 10 tabletRfl: 0 Prescriptions as of 03/18/2024 - predniSONE (DELTASONE) 20 mg tablet Take 2 tablets by mouth once daily for 5 days. - buPROPion XL (WELLBUTRIN XL) 150 mg 24 hr tablet Take 1 tablet by mouth once daily. - miconazole (LOTRIMIN AF) 2 % powder Apply 1 application to affected area once daily. - ibuprofen (ADVIL) 200 mg tablet Take 200 mg by mouth every 6 hours as needed. Problem List As Of Date 03/18/2024 Noted Resolved Tobacco use disorder [F17.200] 03/03/2024 History of heavy alcohol consumption [Z87.898] 03/03/2024 Prescriptions ordered this encounter Disp Refills Start End PREDNISONE 20 MG TABLET 10 t* 0 03/18/2024 03/23/2024 Route: ORAL Sig: Take 2 tablets by mouth once daily for 5 days. Encounter Status:Closed by LAVERNE ZAMBRANO on 03/18/24 Normal [facility] STREP A MOLECULAR (POC)on Procedural Control Valid [facility] Strep A (POCT) Negative Negative [facility] XR CHEST 2V FRONTAL/LATon XR CHEST 2V FRONTAL/LAT * * *Final Report* * * DATE OF EXAM: Mar 18 2024 1:24PM WOX 5291 - XR CHEST 2V FRONTAL/LAT / PROCEDURE REASON: Subacute cough * * * * Physician Interpretation * * * * EXAMINATION: CHEST RADIOGRAPH (2 VIEW FRONTAL and LATERAL) CLINICAL HISTORY: Subacute cough MQ: XC2_6 EXAM DATE/TIME: 03/18/2024 1:24 PM COMPARISON: Chest x-ray on 05/12/2018 RESULT: Lines, tubes, and devices: None. Lungs and pleura: No consolidation. No lung mass. No pleural effusion. No pneumothorax. Cardiomediastinal silhouette: Normal cardiomediastinal silhouette. Bones and soft tissues: Unremarkable. IMPRESSION: No acute radiographic abnormality. Linen Room Supervisor: ISAAC Transcribe Date/Time: Mar 18 2024 1:26P Dictated by : ISELA GARCÍA MD This examination was interpreted and the report reviewed and electronically signed by: ISELA GARCÍA MD on Mar 18 2024 1:26PM EST [id number] Normal [facility] XR Chest PA and Lateralon IMPRESSION: No acute radiographic abnormality. Linen Room Supervisor: PSCB Transcribe Date/Time: Mar 18 2024 1:26P Dictated by : ISELA GARCÍA MD This examination was interpreted and the report reviewed and electronically signed by: ISELA GARCÍA MD on Mar 18 2024 1:26PM [facility] DIVISION OF RADIOLOGY * * *Final Report* * * DATE OF EXAM: Mar 18 2024 1:24PM WOX 5291 - XR CHEST 2V FRONTAL/LAT / PROCEDURE REASON: Subacute cough * * * * Physician Interpretation * * * * EXAMINATION: CHEST RADIOGRAPH (2 VIEW FRONTAL & LATERAL) CLINICAL HISTORY: Subacute cough MQ: XC2_6 EXAM DATE/TIME: 03/18/2024 1:24 PM COMPARISON: Chest x-ray on 05/12/2018 RESULT: Lines, tubes, and devices: None. Lungs and pleura: No consolidation. No lung mass. No pleural effusion. No pneumothorax. Cardiomediastinal silhouette: Normal cardiomediastinal silhouette. Bones and soft tissues: Unremarkable. DIVISION OF RADIOLOGY Provider, [facility] - 03/18/2024 * * *Final Report* * * DATE OF EXAM: Mar 18 2024 1:24PM WOX 5291 - XR CHEST 2V FRONTAL/LAT / PROCEDURE REASON: Subacute cough * * * * Physician Interpretation * * * * EXAMINATION: CHEST RADIOGRAPH (2 VIEW FRONTAL & LATERAL) CLINICAL HISTORY: Subacute cough MQ: XC2_6 EXAM DATE/TIME: 03/18/2024 1:24 PM COMPARISON: Chest x-ray on 05/12/2018 RESULT: Lines, tubes, and devices: None. Lungs and pleura: No consolidation. No lung mass. No pleural effusion. No pneumothorax. Cardiomediastinal silhouette: Normal cardiomediastinal silhouette. Bones and soft tissues: Unremarkable. IMPRESSION IMPRESSION: No acute radiographic abnormality. Linen Room Supervisor: ISAAC Transcribe Date/Time: Mar 18 2024 1:26P Dictated by : ISELA GARCÍA MD This examination was interpreted and the report reviewed and electronically signed by: ISELA GARCÍA MD on Mar 18 2024 1:26PM EST [facility] Radiology Study observation (narrative) [facility] XR Chest PA and LateralOrder ed By: Cc Provider on 03-18-2024 [facility] CNOVon 03-03-2024 CNOV Office Visit (INTMWS ) JESSICA BARR ([id number]) 1 M Date Time Provider Department 03/03/24 2:20 PM PRAKASH ZHAO INTMWS During your visit today, we recorded the following information about you: Temperature Pulse Respiration Blood pressure 98.6 degrees 84/minute 18/minute 122/74 Weight 78.5 kg Prakash Zhao MD 03/03/2024 3:38 PM Signed This note was created using [employer]. Subjective Jessica Irina Barr is a 18 year old male. He was interested in medication to quit smoking. He had success with a prescription last year, which sounded like bupropion. Contrary to his previous record which indicated he was a non smoker, he started smoking at age 11, and got up to 1 PPD one year ago. He was never treated here so some other provider prescribed him a once a day tablet that helped him quit in a few weeks. No follow up was done. He was switching jobs and may move to a nearby city. Review of Systems Constitutional: Negative. Respiratory: Negative. Psychiatric/Behavioral : Negative. ACTIVE PROBLEM LIST Tobacco Use Disorder History of Heavy Alcohol Consumption Social History Tobacco Use Smoking status: Every Day Packs/day: 1.00 Years: 5.00 Additional pack years: 0.00 Total pack years: 5.00 Types: Cigarettes Start date: 2016 Smokeless tobacco: Never Vaping Use Vaping Use: Never used Substance Use Topics Alcohol use: Yes Comment: 12 pack every other weekend Drug use: Never Objective BP 122/74 (BP Site: Left Arm, BP Position: Sitting, BP Cuff Size: Large Adult) Pulse 84 Temp 37 ?C (98.6 ?F) (Temporal) Resp 18 Wt 78.5 kg (173 lb) Physical Exam Constitutional: Appearance: Normal appearance. Neurological: Mental Status: He is alert. Psychiatric: Mood and Affect: Mood normal. Behavior: Behavior normal. Depression Screening PHQ-2 Score MAXIMO-2 Total Score 03/03/2024 0 0 Depression screening tool completed and reviewed. Based on score and interview, patient is not at risk for depression. Screening tool discussed with patient, and I recommended no further intervention at this time. Assessment and Plan 1. Tobacco use disorder - ICD9: 305.1, ICD10: F17.200 (primary diagnosis) - Cessation encouraged. - Counseling was given focusing on the harmful effects of this addiction especially given the patient's medical condition(s) which will be worsened because of the chemicals in tobacco. - Counseling was given 15 minutes. - BUPROPION XL 150 MG TAB. Take one(1) tablet daily. Follow up if needed. 2. History of heavy alcohol consumption - ICD9: 305.03, ICD10: Z87.898 - He was counseled on risks of binge consumption. Prakash Zhao MD Referring Provider: PRAKASH ZHAO [[id number]] Allergies As of Date: 03/03/2024 (No Known Allergies) Date Reviewed: 03/03/2024 Reviewed by: Myrna Vick LPN - Fully Assessed Reason for Visit: Discussion [813] Primary Visit Diagnosis:Tobacco use disorder [F17.200] Other Visit Diagnosis:History of heavy alcohol consumption [Z87.898] Order(s):buPROPion XL (WELLBUTRIN XL) 150 mg 24 hr tabletTake 1 tablet by mouth once daily.Disp: 30 tabletRfl: 0 BEHAVIORAL HEALTH SCREENING [[id number]] Order #: [id number]: 1 Prescriptions as of 03/03/2024 - buPROPion XL (WELLBUTRIN XL) 150 mg 24 hr tablet Take 1 tablet by mouth once daily. - miconazole (LOTRIMIN AF) 2 % powder Apply 1 application to affected area once daily. - ibuprofen (ADVIL) 200 mg tablet Take 200 mg by mouth every 6 hours as needed. Problem List As Of Date 03/03/2024 Noted Resolved Tobacco use disorder [F17.200] 03/03/2024 History of heavy alcohol consumption [Z87.898] 03/03/2024 Prescriptions ordered this encounter Disp Refills Start End BUPROPION XL 150 MG TAB 30 t* 0 03/03/2024 04/02/2024 Route: ORAL Sig: Take 1 tablet by mouth once daily. Disposition: Return if symptoms worsen or fail to improve. Follow-up and Disposition History for Encounter Date Provider Department Center 03/03/2024 [id number] ZHAO INTMWS [facility] Encounter Status:Closed by PRAKASH ZHAO on 03/03/[address] [facility] CNOVon 02-29-2024 CNOV Office Visit (UCWSTR ) JESSICA BARR ([id number]) 1 M Date Time Provider Department 02/29/24 11:30 AM [facility] During your visit today, we recorded the following information about you: Temperature Pulse Respiration Blood pressure 97.5 degrees 88/minute 16/minute 122/70 Weight 79.3 kg Miriam Watson PA-C 02/29/2024 11:[address] Zhao follow up for smoking cessation Dayquil/Nyquil otc for cold symptoms If not better jean paul chow e sen again Miriam Watson PA-C 02/29/2024 12:41 PM Signed This note was created using [employer]. Subjective Jessica Irina Barr is a 18 year old male. HPI Patient presents with a chief complaint of sore throat over the past week. He has also had nasal congestion and a cough. No chest pain or shortness of breath. No body aches or chills. No fever. No one around him has been sick. He denies vomiting or diarrhea. He did try some Tylenol last night. Review of Systems Constitutional: Negative. HENT: Positive for congestion, rhinorrhea and sore throat. Negative for ear pain, sinus pressure and sinus pain. Eyes: Negative. Respiratory: Positive for cough. Negative for shortness of breath and wheezing. Cardiovascular: Negative. Gastrointestinal: Negative. All other systems reviewed and are negative. PAST MEDICAL HISTORY Diagnosis Date ADHD (attention deficit hyperactivity disorder) 12 y.o. COVID-19 04/2021 Nasal fracture 3 y.o Otitis media in diseases classified elsewhere, bilateral 7 y.o. Current Outpatient Medications Medication Sig Dispense Refill miconazole (LOTRIMIN AF) 2 % powder Apply 1 application to affected area once daily. (Patient not taking: Reported on 02/29/2024) 85 g 0 ibuprofen (ADVIL) 200 mg tablet Take 200 mg by mouth every 6 hours as needed. (Patient not taking: Reported on 01/29/2024) No current facility-administered medications for this visit. PAST SURGICAL HISTORY Procedure Laterality Date W EAR TUBE 2006 bilateral years FAMILY HISTORY Problem Relation Age of Onset Diabetes Maternal Grandmother Coronary Artery Disease Maternal Grandfather ND Coronary Artery Disease Paternal Grandfather ND Breast Cancer Other Social History Tobacco Use Smoking status: Never Smokeless tobacco: Never Vaping Use Vaping Use: Never used Substance Use Topics Alcohol use: No Drug use: Never Objective BP 122/70 Pulse 88 Temp 36.4 ?C (97.5 ?F) Resp 16 Wt 79.3 kg (174 lb 13.2 oz) SpO2 97% Physical Exam Vitals reviewed. Constitutional: Appearance: Normal appearance. HENT: Head: Normocephalic and atraumatic. Right Ear: Tympanic membrane, ear canal and external ear normal. Left Ear: Tympanic membrane, ear canal and external ear normal. Nose: Congestion present. Mouth/Throat: Mouth: Mucous membranes are moist. Pharynx: Oropharynx is clear. Cardiovascular: Rate and Rhythm: Normal rate and regular rhythm. Heart sounds: Normal heart sounds. Pulmonary: Effort: Pulmonary effort is normal. Breath sounds: Normal breath sounds. Musculoskeletal: Cervical back: Neck supple. Skin: General: Skin is warm and dry. Findings: No rash. Neurological: General: No focal deficit present. Mental Status: He is alert and oriented to person, place, and time. Assessment and Plan ASSESSMENT/PLAN: 1. Viral illness - ICD9: 079.99, ICD10: B34.9 - Discussed viral etiology and rationale for treatment. - Group A strep molecular testing negative - Symptomatic treatment with prn analgesia - Supportive care with fluids and rest - The patient may also use OTC cough and cold meds as needed and warm salt water gargles, throat lozenges and/or OTC throat spray as needed. - Follow up in 3-5 days if symptoms persist or sooner if worsening of symptoms - STREP A MOLECULAR (POC) Miriam Watson PA-C Allergies As of Date: 02/29/2024 (No Known Allergies) Date Reviewed: 02/29/2024 Reviewed by: Erendira Hernandes MA - Fully Assessed Reason for Visit: Sore Throat [200] Cmt: x 1 week Primary Visit Diagnosis:Viral illness [B34.9] Order(s):STREP A MOLECULAR (POC) [[id number]] Order #: [id number]. #:[id number] Prescriptions as of 02/29/2024 - miconazole (LOTRIMIN AF) 2 % powder Apply 1 application to affected area once daily. - ibuprofen (ADVIL) 200 mg tablet Take 200 mg by mouth every 6 hours as needed. Problem List As Of Date: 02/29/2024 (None) Other instructions from your clinician: Dr. Zhao follow up for smoking cessation Dayquil/Nyquil otc for cold symptoms If not better jean paul chiu Encounter Status:Closed by MIRIAM WATSON on 02/29/24 Normal [facility] STREP A MOLECULAR (POC)on Procedural Control Valid [facility] Strep A (POCT) Negative Negative [facility] CNOVon 01-29-2024 CNOV Office Visit (UCWSTR ) JESSICA BARR ([id number]) 1 M Date Time Provider Department 01/29/24 8:30 AM IVONNE COOPER WSTR During your visit today, we recorded the following information about you: Temperature Pulse Respiration Blood pressure 98 degrees 75/minute 18/minute 149/64 Weight 77.8 kg Ivonne Cooper APRN.LEAD ETL DEVELOPER 01/29/2024 8:48 AM Signed ASSESSMENT/PLAN: 1. Tinea pedis of both feet - ICD9: 110.4, ICD10: B35.3 - Treat with medications as prescribed. - Keep area of concern very dry. Ok to use OTC antifungal powder if area is moist - Follow up with PCP if symptoms persist or do not improved after 4-6 weeks of treatment. - TERBINAFINE HCL 1 % TOPICAL CREAM - MICONAZOLE NITRATE 2 % TOPICAL POWDER - Follow-up with your PCP in 3-5 days if symptoms have not improved or sooner if symptoms worsen - Discussed red flags and need for immediate medical evaluation if any occur. - Discussed supportive care treatment with fluids, rest and analgesia. - Discussed expected course of illness Ivonne Cooper APRN.CNP TINEA PEDIS (ATHLETESFOOT): Your exam shows you have athlete?s foot, a fungus infection that usually starts between the toes. This condition is made worse by heat, moisture, and friction. To treat it you should wash your feet 2-3 times daily, drying well especially between the toes. Wear cotton socks to absorb sweat and change them twice a day if possible. You should allow your feet to be open to the air as much as possible and wear sandals when possible. To treat ahtlete?s foot, use ubby-pou-xhmiaox medicated foot powder or cream such as Lotrimin or Micatin as directed on the package. Prescription creams or lotions such as Exelderm, Lamisil, Loprox, or Oxistat may be needed. You should continue this treatment for at least a week after all symptoms are gone. Antibiotics are needed sometimes to treat secondary bacterial infection. See your doctor if you are not improved after one week of treatment. Ivonne Cooper APRN.BENNY 01/29/2024 8:56 AM Signed Subjective Pain (foot) Associated symptoms include itching. Pertinent negatives include no fever. Jessica Barr is a 18 year old male who presents with bilateral foot pain, itching, and odor for the past 3 months. He states his feet stink even after taking a shower. He denies fever or chills. He used some athlete's foot medication once yesterday and it did not seem to make a difference. Review of Systems Constitutional: Negative for chills and fever. Musculoskeletal: Negative for joint pain and myalgias. Skin: Positive for itching and rash. BP 149/64 Pulse 75 Temp 36.7 ?C (98 ?F) Resp 18 Wt 77.8 kg (171 lb 8.3 oz) SpO2 97% PAST MEDICAL HISTORY Diagnosis Date ADHD (attention deficit hyperactivity disorder) 12 y.o. COVID-19 04/2021 Nasal fracture 3 y.o Otitis media in diseases classified elsewhere, bilateral 7 y.o. PAST SURGICAL HISTORY Procedure Laterality Date W EAR TUBE 2006 bilateral years ALLERGIES Patient has no known allergies. MEDICATIONS terbinafine HCl (LAMISIL) 1 % cream Apply to affected area daily at bedtime. miconazole (LOTRIMIN AF) 2 % powder Apply 1 application to affected area once daily. ibuprofen (ADVIL) 200 mg tablet Take 200 mg by mouth every 6 hours as needed. (Patient not taking: Reported on 01/29/2024) FAMILY HISTORY Problem Relation Age of Onset Diabetes Maternal Grandmother Coronary Artery Disease Maternal Grandfather ND Coronary Artery Disease Paternal Grandfather ND Breast Cancer Other Social History Tobacco Use Smoking status: Never Smokeless tobacco: Never Vaping Use Vaping Use: Never used Substance Use Topics Alcohol use: No Drug use: Never Objective Physical Exam Vitals and nursing note reviewed. Constitutional: General: He is not in acute distress. Appearance: Normal appearance. He is not ill-appearing. Musculoskeletal: General: Tenderness present. No swelling or signs of injury. Feet: Skin: General: Skin is warm and dry. Findings: Erythema and rash present. Neurological: Mental Status: He is alert. ASSESSMENT/PLAN: 1. Tinea pedis of both feet - ICD9: 110.4, ICD10: B35.3 - Treat with medications as prescribed. - Keep area of concern very dry. Ok to use OTC antifungal powder if area is moist - Follow up with PCP if symptoms persist or do not improved after 4-6 weeks of treatment. - TERBINAFINE HCL 1 % TOPICAL CREAM - MICONAZOLE NITRATE 2 % TOPICAL POWDER - Follow-up with your PCP in 3-5 days if symptoms have not improved or sooner if symptoms worsen - Discussed red flags and need for immediate medical evaluation if any occur. - Discussed supportive care treatment with fluids, rest and analgesia. - Discussed expected course of illness Ivonne Cooper APRN.LEAD E[employer] DEVELOPER Allergies As of D (more content not included)... Normal [facility] .Auto Diffon 03-11-2023 Basophil, Absolute 0.0 10 3/mcL Normal 0.0-0.2 [facility] ([place]) Comment on above: Performed By: #### C MP, CBC, GFR, ANEU, ADIFF, LIP, MDW #### [address] [address] Basophils/100 WBC (Bld) 0.7 % Normal 0.0-2.5 [facility] ([place]) Comment on above: Performed By: #### C MP, CBC, GFR, ANEU, ADIFF, LIP, MDW #### [address] [address] Eosinophil, Absolute 0.2 10 3/mcL Normal 0.0-0.4 [facility] ([place]) Comment on above: Performed By: #### C MP, CBC, GFR, ANEU, ADIFF, LIP, MDW #### [address] [address] Eosinophils/100 WBC (Bld) 3.9 % Normal 0.0-7.0 [facility] ([place]) Comment on above: Performed By: #### C MP, CBC, GFR, ANEU, ADIFF, LIP, MDW #### [address] [address] Lymphocyte, Absolute 1.1 10 3/mcL Normal 0.8-3.9 [facility] ([place]) Comment on above: Performed By: #### C MP, CBC, GFR, ANEU, ADIFF, LIP, MDW #### [address] [address] Lymphocytes/100 WBC (Bld) 18.7 % Normal 10.0-50.0 [facility] ([place]) Comment on above: Performed By: #### C MP, CBC, GFR, ANEU, ADIFF, LIP, MDW #### [address] [address] Monocyte, Absolute 0.8 10 3/mcL Normal 0.2-1.0 [facility] ([place]) Comment on above: Performed By: #### C MP, CBC, GFR, ANEU, ADKRISTY MERRILL MDW #### [address] [address] Monocytes/100 WBC (Bld) 14.2 % High 1.7-13.0 [facility] ([place]) Comment on above: Performed By: #### C MP, CBC, GFR, ANEU, ADKRISTY MERRILL MDW #### [address] [address] Neutrophils/100 WBC (Bld) 62.5 % Normal 37.0-80.0 [facility] ([place]) Comment on above: Performed By: #### C MP, CBC, GFR, ANEU, ADKRISTY MERRILL MDW #### [address] [address] .GFRon 03-11-2023 GFR 145 ml/min/1.73sqm Normal [facility] ([place]) Comment on above: Result Comment: GFR Population mean for , Non- Americans Ages 20-29 = 116 mL/min/1.73 sq.m. Ages 30-39 = 107 mL/min/1.73 sq.m. Ages 40-49 = 99 mL/min/1.73 sq.m. Ages 50-59 = 93 mL/min/1.73 sq.m. Ages 60-69 = 85 mL/min/1.73 sq.m. Ages 70+ = 75 mL/min/1.73 sq.m. Chronic Kidney Disease: Less than 60 mL/min/1.73 square meters End Stage Renal Disease: Less than 15 mL/min/1.73 square meters Performed By: #### C MP, CBC, GFR, ANEU, ADKRISTY MERRILL MDW #### [address] [address] GFR Non- 119 ml/min/1.73sqm Normal [facility] ([place]) Comment on above: Result Comment: GFR Population mean for , Non- Americans Ages 20-29 = 116 mL/min/1.73 sq.m. Ages 30-39 = 107 mL/min/1.73 sq.m. Ages 40-49 = 99 mL/min/1.73 sq.m. Ages 50-59 = 93 mL/min/1.73 sq.m. Ages 60-69 = 85 mL/min/1.73 sq.m. Ages 70+ = 75 mL/min/1.73 sq.m. Chronic Kidney Disease: Less than 60 mL/min/1.73 square meters End Stage Renal Disease: Less than 15 mL/min/1.73 square meters Performed By: #### C MP, CBC, GFR, ANEU, ADIFF, LEANNE WAGNER #### [address] [address] .MDWon 03-11-2023 Monocyte Distribution Width 18.08 Normal 0.00-20.00 [facility] ([place]) Comment on above: Result Comment: For ED adult patients suspected of sepsis, MDW<=20.0 does not rule out sepsis or risk of sepsis Performed By: #### C MP, CBC, GFR, ANEU, ADIFFKRISTY MDW #### [address] [address] .NEUABSon 03-11-2023 Neutrophil, Absolute 3.5 10 3/mcL Normal 2.9-6.2 [facility] ([place]) Comment on above: Performed By: #### C MP, CBC, GFR, ANEU, ADIFFKRISTY MDW #### [address] [address] CBCon 03-11-2023 Erythrocyte distribution width (RBC) [Ratio] 13.0 % Normal 11.5-14.5 [facility] ([place]) Comment on above: Performed By: #### C MP, CBC, GFR, ANEU, ADIFFKRISTY MDW #### [address] [address] Hematocrit (Bld) [Volume fraction] 42.1 % Normal 42.0-52.0 [facility] ([place]) Comment on above: Performed By: #### C MP, CBC, GFR, ANEU, ADIFFKRISTY MDW #### [address] [address] Hgb 14.4 G/dL Normal 14.0-18.0 [facility] ([place]) Comment on above: Performed By: #### C MP, CBC, GFR, ANEU, ADKRISTY MERRILL MDW #### [address] [address] MCH (RBC) [Entitic mass] 29.3 pg Normal 27.0-31.2 [facility] ([place]) Comment on above: Performed By: #### C MP, CBC, GFR, ANEU, ADGARFIELD, LEANNE WAGNER #### [address] [address] MCHC 34.2 G/dL Normal 31.8-35.4 [facility] ([place]) Comment on above: Performed By: #### C MP, CBC, GFR, ANEU, ADKRISTY MERRILL MDW #### [address] [address] MCV (RBC) [Entitic vol] 85.7 fL Normal 80.0-94.0 [facility] ([place]) Comment on above: Performed By: #### C MP, CBC, GFR, ANEU, KRISTY KIMBLE MDW #### [address] [address] Platelet 322 10 3/mcL Normal 130-400 [facility] ([place]) Comment on above: Performed By: #### C MP, CBC, GFR, ANEU, ADKRISTY MERRILL MDW #### [address] [address] Platelet mean volume (Bld) [Entitic vol] 7.3 fL Low 7.4-10.4 [facility] ([place]) Comment on above: Performed By: #### C MP, CBC, GFR, ANEU, ADKRISTY MERRILL MDW #### [address] [address] RBC 4.92 10 6/mcL Normal 4.04-6.13 [facility] ([place]) Comment on above: Performed By: #### C MP, CBC, GFR, ANEU, ADKRISTY MERRILL MDW #### [address] [address] WBC 5.6 10 3/mcL Normal 4.6-10.8 [facility] ([place]) Comment on above: Performed By: #### C MP, CBC, GFR, ANEU, ADKRISTY MERRILL MDW #### [address] [address] CMPon 03-11-2023 Albumin Level 4.2 G/dL Normal 3.5-5.0 [facility] ([place]) Comment on above: Performed By: #### C MP, CBC, GFR, ANEU, ADKRISTY MERRILL MDW #### [address] [address] Albumin/Globulin [Mass ratio] 1.6 {ratio} Normal 1.1-2.5 [facility] ([place]) Comment on above: Performed By: #### C MP, CBC, GFR, ANEU, ADKRISTY MERRILL MDW #### [address] [address] ALP [Catalytic activity/Vol] 91 U/L Normal 40-135 [facility] ([place]) Comment on above: Performed By: #### C MP, CBC, GFR, ANEU, ADKRISTY MERRILL MDW #### [address] [address] ALT [Catalytic activity/Vol] 23 U/L Normal 16-63 [facility] ([place]) Comment on above: Performed By: #### C MP, CBC, GFR, ANEU, ADKRISTY MERRILL MDW #### [address] [address] AST [Catalytic activity/Vol] 17 U/L Normal 10-40 [facility] ([place]) Comment on above: Performed By: #### C MP, CBC, GFR, ANEU, ADIFFKRISTY MDW #### [address] [address] Bili Total 0.6 mg/dL Normal 0.2-1.0 [facility] ([place]) Comment on above: Result Comment: Use of this assay is not recommended for patients undergoing treatment with eltrombopag due to the potential for falsely elevated results. Performed By: #### C MP, CBC, GFR, ANEU, ADKRISTY MERRILL MDW #### [address] [address] BUN/Creatinine Ratio 13 ratio Normal 7-27 [facility] ([place]) Comment on above: Performed By: #### C MP, CBC, GFR, ANEU, ADIFF, LEANNE WAGNER #### [place] [address] Calcium [Mass/Vol] 9.3 mg/dL Normal 8.4-10.2 [facility] ([place]) Comment on above: Performed By: #### C MP, CBC, GFR, ANEU, ADIFFKRISTY MDW #### [address] [address] Chloride [Moles/Vol] 104 mmol/L Normal 98-107 [facility] ([place]) Comment on above: Performed By: #### C MP, CBC, GFR, ANEU, ADIFFKRISTY MDW #### [place] [address] CO2 [Moles/Vol] 26 mmol/L Normal 22-29 [facility] ([place]) Comment on above: Performed By: #### C MP, CBC, GFR, ANEU, ADKRISTY MERRILL MDW #### [address] [address] Creatinine [Mass/Vol] 0.83 mg/dL Normal 0.70-1.30 [facility] ([place]) Comment on above: Performed By: #### C MP, CBC, GFR, ANEU, ADIFFKRISTY MDW #### [address] [address] Electrolyte Balance 10.0 mEq/L Normal 4.0-15.0 [facility] ([place]) Comment on above: Performed By: #### C MP, CBC, GFR, ANEU, ADIFF, LEANNE WAGNER #### [place] [id number] Globulin 2.6 G/dL Normal [facility] ([place]) Comment on above: Performed By: #### C MP, CBC, GFR, ANEU, ADKRISTY MERRILL MDW #### [address] [address] Glucose [Mass/Vol] 84 mg/dL Normal 70-105 [facility] ([place]) Comment on above: Performed By: #### C MP, CBC, GFR, ANEU, ADKRISTY MERRILL MDW #### [address] [address] Potassium [Moles/Vol] 4.1 mmol/L Normal 3.5-5.1 [facility] ([place]) Comment on above: Performed By: #### C MP, CBC, GFR, ANEU, ADKRISTY MERRILL MDW #### [address] [address] Sodium [Moles/Vol] 140 mmol/L Normal 136-145 [facility] ([place]) Comment on above: Performed By: #### C MP, CBC, GFR, ANEU, ADKRISTY MERRILL MDW #### [address] [address] Total Protein 6.8 G/dL Normal 6.4-8.2 [facility]) Comment on above: Performed By: #### C MP, CBC, GFR, ANEU, ADKRISTY MERRILL MDW #### [address] [address] Urea nitrogen [Mass/Vol] 11 mg/dL Normal 7-18 [facility] ([place]) Comment on above: Performed By: #### C MP, CBC, GFR, ANEU, ADKRISTY MERRILL MDW #### [address] [address] LABORATORYOrdered By: SYSTEM SYSTEM on 03-11-2023 Albumin BCP dye [Mass/Vol] 4.2 G/dL Invalid Interpretation Code 3.5 - 5.0 G/dL AO ADM SS Albumin/Globulin [Mass ratio] 1.6 {ratio} Invalid Interpretation Code 1.1 - 2.5 ratio AO ADM SS ALP [Catalytic activity/Vol] 91 U/L Invalid Interpretation Code 40 - 135 U/L AO ADM SS ALT With P-5'-P [Catalytic activity/Vol] 23 U/L Invalid Interpretation Code 16 - 63 U/L AO ADM SS AST With P-5'-P [Catalytic activity/Vol] 17 U/L Invalid Interpretation Code 10 - 40 U/L AO ADM SS Basophil, Absolute 0.0 103/mcL Invalid Interpretation Code 0.0 - 0.2 10^3/mcL AO Workflow SS Basophils/100 WBC (Bld) 0.7 % Invalid Interpretation Code 0.0 - 2.5 % AO Workflow SS Bilirubin [Mass/Vol] 0.6 mg/dL Invalid Interpretation Code 0.2 - 1.0 mg/dL AO ADM SS Calcium [Mass/Vol] 9.3 mg/dL Invalid Interpretation Code 8.4 - 10.2 mg/dL AO ADM SS Chloride [Moles/Vol] 104 mmol/L Invalid Interpretation Code 98 - 107 mmol/L AO ADM SS CO2 [Moles/Vol] 26 mmol/L Invalid Interpretation Code 22 - 29 mmol/L AO ADM SS Creatinine [Mass/Vol] 0.83 mg/dL Invalid Interpretation Code 0.70 - 1.30 mg/dL AO ADM SS Electrolyte Balance 10.0 mEq/L Invalid Interpretation Code 4.0 - 15.0 mEq/L AO ADM SS Eosinophil, Absolute 0.2 103/mcL Invalid Interpretation Code 0.0 - 0.4 10^3/mcL AO Workflow SS Eosinophils/100 WBC (Bld) 3.9 % Invalid Interpretation Code 0.0 - 7.0 % AO Workflow SS Erythrocyte distribution width (RBC) [Ratio] 13.0 % Invalid Interpretation Code 11.5 - 14.5 % AO Workflow SS GFR/1.73 sq M.predicted among blacks MDRD (S/P/Bld) [Vol rate/Area] 145 ml/min/1.73sqm Invalid Interpretation Code AO Chemistry S GFR/1.73 sq M.predicted among non-blacks MDRD (S/P/Bld) [Vol rate/Area] 119 ml/min/1.73sqm Invalid Interpretation Code AO Chemistry S Globulin 2.6 G/dL Invalid Interpretation Code AO ADM SS Glucose [Mass/Vol] 84 mg/dL Invalid Interpretation Code 70 - 105 mg/dL AO ADM SS Hematocrit (Bld) [Volume fraction] 42.1 % Invalid Interpretation Code 42.0 - 52.0 % AO Workflow SS Hemoglobin (Bld) [Mass/Vol] 14.4 G/dL Invalid Interpretation Code 14.0 - 18.0 G/dL AO Workflow SS Lipase [Catalytic activity/Vol] 25 U/L Invalid Interpretation Code 16 - 77 U/L AO ADM SS Lymphocyte, Absolute 1.1 103/mcL Invalid Interpretation Code 0.8 - 3.9 10^3/mcL AO Workflow SS Lymphocytes/100 WBC (Bld) 18.7 % Invalid Interpretation Code 10.0 - 50.0 % AO Workflow SS MCH (RBC) [Entitic mass] 29.3 pg Invalid Interpretation Code 27.0 - 31.2 pg AO Workflow SS MCHC 34.2 G/dL Invalid Interpretation Code 31.8 - 35.4 G/dL AO Workflow SS MCV (RBC) [Entitic vol] 85.7 fL Invalid Interpretation Code 80.0 - 94.0 fL AO Workflow SS Monocyte distribution width Auto (Bld) [Entitic vol] 18.08 Invalid Interpretation Code 0.00 - 20.00 AO Workflow SS Comment on above: Result Comment: For ED adult patients suspected of sepsis, MDW<=20.0 does not rule out sepsis or risk of sepsis Monocyte, Absolute 0.8 103/mcL Invalid Interpretation Code 0.2 - 1.0 10^3/mcL AO Workflow SS Monocytes/100 WBC (Bld) 14.2 % Invalid Interpretation Code 1.7 - 13.0 % AO Workflow SS Neutrophil, Absolute 3.5 103/mcL Invalid Interpretation Code 2.9 - 6.2 10^3/mcL AO Workflow SS Neutrophils/100 WBC (Bld) 62.5 % Invalid Interpretation Code 37.0 - 80.0 % AO Workflow SS Platelet mean volume (Bld) [Entitic vol] 7.3 fL Invalid Interpretation Code 7.4 - 10.4 fL AO Workflow SS Platelets (Bld) [#/Vol] 322 103/mcL Invalid Interpretation Code 130 - 400 10^3/mcL AO Workflow SS Potassium [Moles/Vol] 4.1 mmol/L Invalid Interpretation Code 3.5 - 5.1 mmol/L AO ADM SS Protein [Mass/Vol] 6.8 G/dL Invalid Interpretation Code 6.4 - 8.2 G/dL AO ADM SS RBC (Bld) [#/Vol] 4.92 106/mcL Invalid Interpretation Code 4.04 - 6.13 10^6/mcL AO Workflow SS Sodium [Moles/Vol] 140 mmol/L Invalid Interpretation Code 136 - 145 mmol/L AO ADM SS Urea nitrogen [Mass/Vol] 11 mg/dL Invalid Interpretation Code 7 - 18 mg/dL AO ADM SS Urea nitrogen/Creatinine [Mass ratio] 13 ratio Invalid Interpretation Code 7 - 27 ratio AO ADM SS WBC (Bld) [#/Vol] 5.6 103/mcL Invalid Interpretation Code 4.6 - 10.8 10^3/mcL AO Workflow SS LIPon 03-11-2023 Lipase Level 25 U/L Normal 16-77 [facility] ([place]) Comment on above: Performed By: #### C MP, CBC, GFR, ANEU, ADIFF, LIP, MDW #### [place] [id number] [place], [place] [address] [id number] 12-22-2022 SARS-CoV-2 (COVID-19) RNA TRAY+probe Ql (Unsp spec) Negative Normal Negative [facility] ([place]) Comment on above: Performed By: #### C OVD19, FLURSV #### [address] [address] SARS-CoV-2 (COVID-19) RNA TRAY+probe Ql (Unsp spec) Normal [facility] ([place]) Comment on above: Result Comment: Nega tive results do not preclude SARS-CoV-2 infection and should not be used as the sole basis for patient management decisions. Negative results must be combined with clinical observations, patient history, and epidemiological information. There is a risk of false negative values resulting from improperly collected, transported, or handled specimens. There is a risk of false negative values due to the presence of sequence variants in the pathogen targets of the assay, procedural errors, amplification inhibitors in specimens, or inadequate numbers of organisms for amplification. FIOR SARS-CoV-2 Assay is a Real-Time reverse-transcriptase polymerase chain reaction (RT-PCR) based qualitative in vitro diagnostic test intended for the qualitative detection of nucleic acid from the SARS-CoV-2 in nasopharyngeal swab specimens collected from individuals suspected of COVID-19 by their healthcare provider. Testing is limited to laboratories certified under the Clinical Laboratory Improvement Amendments of 1988 (CLIA), 42 U.S.C. ?263a, to perform moderate and high complexity tests. COVID-19 Int Performed By: #### C OVD19, FLURSV #### [address] [place], [place] [address] DIMERon 12-22-2022 D-Dimer <200 Normal 0-230 [facility] ([place]) Comment on above: Result Comment: The result of the D-Dimer test should be evaluated in the context of all the clinical and laboratory data available. In those instances where the laboratory result does not agree with the clinical evaluation, additional tests should be performed accordingly. If the D-Dimer result is used to exclude DVT or PE, the recommended cutoff value is less than 230 ng/mL. The D-Dimer result should not be used alone to rule in DVT/PE, but should be used in conjunction with a clinical pretest probability (PTP)assessment model to exclude venous thromboembolism (VTE) in outpatients suspected of deep venous thrombosis (DVT) and pulmonary embolism (PE). Performed By: #### D BROOKS ####[address] [place], [place] [address] FLURSVon 12-22-2022 Flu A PCR (AO) Negative Normal Negative [facility] ([place]) Comment on above: Result Comment: Posi tive Results: Positive Flu A/B or RSV for by PCR. Positive test results do not rule out bacterial infection or co-infection with other pathogens. Test results should be interpreted in conjunction with other laboratory and clinical data. Negative Results: Negative for by PCR. Negative test results do not preclude influenza virus or RSV infection and should not be used as the sole basis for diagnosis, treatment, or other management decisions. There is a risk of false negative RSV results when at low concentration and in the presence of co-infection with high concentration of influenza A. Invalid Results: An Invalid result (INV) was obtained. The test was repeated with similar results. REPEAT COLLECTION AND TESTING IS RECOMMENDED. The [employer] Flu A/B & RSV Assay is a real-time polymerase chain reaction (PCR) based qualitative in vitro diagnostic test for the direct detection and differentiation of influenza A virus, influenza B virus, and respiratory syncytial virus (RSV) nucleic acid in nasopharyngeal swab (PROPERTY CLAIM REP) specimens from patients with signs and symptoms of respiratory infection in conjunction with clinical and laboratory findings. The test is intended for use as an aid in the differential diagnosis of influenza A virus, influenza B virus, and RSV in humans and is not intended to detect influenza C. Performed By: #### C OVD19, FLURSV ####[id number] [place], [place] [address] Flu B PCR (AO) Negative Normal Negative [facility] ([place]) Comment on above: Result Comment: Posi tive Results: Positive Flu A/B or RSV for by PCR. Positive test results do not rule out bacterial infection or co-infection with other pathogens. Test results should be interpreted in conjunction with other laboratory and clinical data. Negative Results: Negative for by PCR. Negative test results do not preclude influenza virus or RSV infection and should not be used as the sole basis for diagnosis, treatment, or other management decisions. There is a risk of false negative RSV results when at low concentration and in the presence of co-infection with high concentration of influenza A. Invalid Results: An Invalid result (INV) was obtained. The test was repeated with similar results. REPEAT COLLECTION AND TESTING IS RECOMMENDED. The [employer] Flu A/B & RSV Assay is a real-time polymerase chain reaction (PCR) based qualitative in vitro diagnostic test for the direct detection and differentiation of influenza A virus, influenza B virus, and respiratory syncytial virus (RSV) nucleic acid in nasopharyngeal swab (PROPERTY CLAIM REP) specimens from patients with signs and symptoms of respiratory infection in conjunction with clinical and laboratory findings. The test is intended for use as an aid in the differential diagnosis of influenza A virus, influenza B virus, and RSV in humans and is not intended to detect influenza C. Performed By: #### C OVD19, FLURSV ####[id number] [place], [place] [address] RSV PCR (AO) Negative Normal Negative [facility] ([place]) Comment on above: Result Comment: Posi tive Results: Positive Flu A/B or RSV for by PCR. Positive test results do not rule out bacterial infection or co-infection with other pathogens. Test results should be interpreted in conjunction with other laboratory and clinical data. Negative Results: Negative for by PCR. Negative test results do not preclude influenza virus or RSV infection and should not be used as the sole basis for diagnosis, treatment, or other management decisions. There is a risk of false negative RSV results when at low concentration and in the presence of co-infection with high concentration of influenza A. Invalid Results: An Invalid result (INV) was obtained. The test was repeated with similar results. REPEAT COLLECTION AND TESTING IS RECOMMENDED. The [employer] Flu A/B & RSV Assay is a real-time polymerase chain reaction (PCR) based qualitative in vitro diagnostic test for the direct detection and differentiation of influenza A virus, influenza B virus, and respiratory syncytial virus (RSV) nucleic acid in nasopharyngeal swab (PROPERTY CLAIM REP) specimens from patients with signs and symptoms of respiratory infection in conjunction with clinical and laboratory findings. The test is intended for use as an aid in the differential diagnosis of influenza A virus, influenza B virus, and RSV in humans and is not intended to detect influenza C. Performed By: #### C OVD19, FLURSV ####[id number] [place], [place] [address] LABORATORYOrdered By: Catherine Bernal on 12-22-2022 Fibrin D-dimer DDU (PPP) [Mass/Vol] ng/mL D-DU Invalid Interpretation Code 0 - 230 ng/mL D-DU AO [employer] SS FLUAV RNA TRAY+probe Ql (Upper resp) Negative (12/22/22 1:40 PM) Invalid Interpretation Code Negative AO Auto Urine SS FLUBV RNA TRAY+probe Ql (Upper resp) Negative (12/22/22 1:40 PM) Invalid Interpretation Code Negative AO Auto Urine SS RSV RNA TRAY+probe Ql (Upper resp) Negative (12/22/22 1:40 PM) Invalid Interpretation Code Negative AO Auto Urine SS LABORATORYOrdered By: Danii Grover on 12-22-2022 SARS-CoV-2 (COVID-19) RNA TRAY+probe Ql (Resp) Negative results do not preclude SARS-CoV-2 infection and should not be used as the sole basis for patient management decisions. Negative results must be combined with clinical observations, patient history, and epidemiological information.There is a risk of false negative values resulting from improperly collected, transported, or handled specimens.There is a risk of false negative values due to the presence of sequence variants in the pathogen targets of the assay, procedural errors, amplification inhibitors in specimens, or inadequate numbers of organisms for amplification.FIOR SARS-CoV-2 Assay is a Real-Time reverse-transcriptase polymerase chain reaction (RT-PCR) based qualitative in vitro diagnostic test intended for the qualitative detection of nucleic acid from the SARS-CoV-2 in nasopharyngeal swab specimens collected from individuals suspected of COVID-19 by their healthcare provider. Testing is limited to laboratories certified under the Clinical Laboratory Improvement Amendments of 1988 (CLIA), 42 U.S.C. 263a, to perform moderate and high complexity tests. Invalid Interpretation Code AO Auto Urine SS XR CHEST 2 VIEWSon 3 XR CHEST 2 VIEWS ORIGINAL HISTORY: Cough COMPARISON: 17 June 2022 FINDINGS: The lungs and pleural spaces are clear. The pulmonary vasculature is unremarkable in appearance. The cardiac silhouette is within normal size limits. IMPRESSION: Clear lungs. Interpreted by: Juvencio Christiansen MD Preliminary Report By: Juvencio Christiansen MD Electronically signed By Juvencio Christiansen MD Dictated Date: 12/22/2022 2:43:38 PM Prelim Date: 12/22/2022 2:43:59 PM Sign Date: 12/22/2022 2:43:59 PM Ordering Provider: MANGO TYSON [facility] ([place]) CR Forearm 2 Views Righton 1 CR Forearm 2 Views Right Patient Name: JESSICA BARR Diagnostic Radiology ACCESSION EXAM DATE/TIME PROCEDURE ORDERING PROVIDER [id number] 07/01/2022 23:56 EDT CR Forearm 2 Views Right [id number] -KASEY ERVIN CPT code 77763 Reason For Exam (CR Forearm 2 Views Right) s/p ORIF R both bone fx Report Examination: Right forearm Clinical Indication: Pain Comparison: Wrist radiographs June 17, 2022 Findings: AP and lateral views of the right forearm are provided. Splint material is present. There has been interval plate and screw of the known comminuted distal radius and ulna fracture. No evidence of immediate hardware complication. The fracture fragments are in improved anatomic alignment. Impression: Interval plate and screw fixation of the known distal radius and ulna fracture with improved alignment. Report Dictated on Final Dictated: 07/02/2022 0:47 am Dictating Physician: MD CREWS JASON Signed Date and Time: 07/02/2022 0:48 am Signed by: MD CREWS JASON Transcribed Date and Time: 07/02/2022 0:47 Normal [facility] XR RADIUS ULNA RIGHT (2 VIEW S)on 07-02-2022 [id number] Radiology ACCESSION EXAM DATE/TIME PROCEDURE ORDERING PROVIDER [id number] 07/01/2022 23:56 EDT CR Forearm 2 Views Right [id number] PROCTOR CPT code 64436 Reason For Exam (CR Forearm 2 Views Right) s/p ORIF R both bone fx Report Examination: Right forearm Clinical Indication: Pain Comparison: Wrist radiographs June 17, 2022 Findings: AP and lateral views of the right forearm are provided. Splint material is present. There has been interval plate and screw of the known comminuted distal radius and ulna fracture. No evidence of immediate hardware complication. The fracture fragments are in improved anatomic alignment. Impression: Interval plate and screw fixation of the known distal radius and ulna fracture with improved alignment. Report Dictated on --- Final --- Dictated: 07/02/2022 0:47 am Dictating Physician: MD CREWS JASON Signed Date and Time: 07/02/2022 0:48 am Signed by: MD CREWS JASON Transcribed Date and Time: 07/02/2022 0:47 [facility] Israel Crews MD - 07/02/2022 Patient Name: JESSICA BARR Diagnostic Radiology ACCESSION EXAM DATE/TIME PROCEDURE ORDERING PROVIDER [id number] 07/01/2022 23:56 EDT CR Forearm 2 Views Right [id number] KASEY MALLORY CPT code 25167 Reason For Exam (CR Forearm 2 Views Right) s/p ORIF R both bone fx Report Examination: Right forearm Clinical Indication: Pain Comparison: Wrist radiographs June 17, 2022 Findings: AP and lateral views of the right forearm are provided. Splint material is present. There has been interval plate and screw of the known comminuted distal radius and ulna fracture. No evidence of immediate hardware complication. The fracture fragments are in improved anatomic alignment. Impression: Interval plate and screw fixation of the known distal radius and ulna fracture with improved alignment. Report Dictated on --- Final --- Dictated: 07/02/2022 0:47 am Dictating Physician: MD CREWS JASON Signed Date and Time: 07/02/2022 0:48 am Signed by: MD CREWS JASON Transcribed Date and Time: 07/02/2022 0:47 [facility] Work Phone: XR RADIUS ULNA RIGHT (2 VIEW S)Ordered By: Israel Crews on 07-02-2022 [facility] Work Phone: ED Provider Noteon 2 ED Provider Note [facility] EMERGENCY DEPT eMERGENCY dEPARTMENT eNCOUnter Pt Name: Jessica Barr Birthdate 2005 Date of evaluation: 07/01/2022 Provider: Omar Walls PA-C CHIEF COMPLAINT Chief Complaint Patient presents with Arm Injury PT FELL INTO [place] TODAY AND GOT CAST WET. PT HAD BROKEN R ARM W/ WOUND 2X WEEKS AGO. Patient seen independently with an Emergency Medicine attending available for supervision. HISTORY OF PRESENT ILLNESS (Location/Symptom, Timing/Onset,Context/S etting, Quality, Duration, Modifying Factors, Severity) Note limiting factors. HPI Jessica Barr is a 17 y.o. male who presents to the emergency department after falling in a [place] earlier today. Patient states that he did not injure himself but is concerned because he got his cast wet. Patient broke his right arm a few weeks ago. He denies any new injury. Denies hitting his head, loss of consciousness or blood thinner use. Patient states he did have an open wound on the volar aspect of his forearm. He denies any numbness or tingling. Denies any pain currently. Nursing Notes were reviewed. REVIEW OFSYSTEMS (2+ for level 4; 10+ for level 5) Review of Systems Constitutional: Negative for fever, chills and fatigue. HENT: Negative for congestion, rhinorrhea and sore throat. Eyes: Negative for photophobia and visual disturbance. Respiratory: Negative for cough and shortness of breath. Cardiovascular: Negative for chest pain, palpitations and leg swelling. Gastrointestinal: Negative for abdominal pain, constipation, diarrhea, nausea and vomiting. Genitourinary: Negative for difficulty urinating, dysuria, frequency and urgency. Musculoskeletal: Negative for arthralgias and myalgias. Skin: Negative for color change and rash. Neurological: Negative for dizziness, light-headedness, numbness and headaches. Psychiatric/Behavioral : The patient is not nervous/anxious. All other systems reviewed and are negative. PAST MEDICAL HISTORY History reviewed. No pertinent past medical history. SURGICAL HISTORY Past Surgical History: Procedure Laterality Date ORIF FOREARM FRACTURE Right 06/17/2022 CURRENT MEDICATIONS Discharge Medication List as of 07/02/2022 12:34 AM CONTINUE these medications which have NOT CHANGED Details methocarbamol (ROBAXIN) 500 MG tablet Take 1 tablet by mouth 4 times daily for 10 days, Disp-40 tablet, R-0Normal ondansetron (ZOFRAN) 4 MG tablet Take 1 tablet by mouth 3 times daily as needed for Nausea or Vomiting, Disp-30 tablet, R-0Print acetaminophen (TYLENOL) 500 MG tablet Take 2 tablets by mouth every 8 hours, Disp-120 tablet, R-0Normal gabapentin (NEURONTIN) 100 MG capsule Take 1 capsule by mouth 3 times daily for 10 days., Disp-30 capsule, R-0Normal celecoxib (CELEBREX) 100 MG capsule Take 1 capsule by mouth 2 times daily for 10 days, Disp-20 capsule, R-0Normal sennosides-docusate sodium (SENOKOT-S) 8.6-50 MG tablet Take 2 tablets by mouth daily as needed for Constipation, Disp-60 tablet, R-0Normal ALLERGIES Patient has no known allergies. FAMILY HISTORY History reviewed. No pertinent family history. SOCIAL HISTORY Social History Socioeconomic History Marital status: Single Spouse name: None Number of children: None Years of education: None Highest education level: None Tobacco Use Smoking status: Never Smokeless tobacco: Never Substance and Sexual Activity Alcohol use: Yes Drug use: Yes Types: Marijuana ([place]) SCREENINGS PHYSICAL EXAM (up to 7 for level 4, 8 ormore for level 5) ED Triage Vitals [07/01/22 2215] BP Temp Temp Source Heart Rate Resp SpO2 Height Weight - Scale 126/75 99.1 ?F (37.3 ?C) Temporal 91 16 97 % 5' 9 (1.753 m) 150 lb (68 kg) Physical Exam GENERAL APPEARANCE: AxOx4, generally well-appearing 17-year-old male, no acute distress. HEAD: NC, AT EYES: EOMi, clear conjunctiva ENT: MMM, oropharynx clear. NECK: Supple without lymphadenopathy. No stiffness or restricted ROM. HEART: Normal rate and regular rhythm LUNGS: CTAB. No wheezing, crackles, or rhonchi ABDOMEN: Soft, nontender and nondistended. No rebound or guarding. BACK: No CVAT, no obvious deformity. EXTREMITIES: The right arm is in a cast, appears unraveled as patient tried to take off the outer lining. Distal pulses are equal and present. Sensation intact to light touch distally. Without cyanosis, clubbing or edema. NEUROLOGICAL: Grossly nonfocal. Alert and oriented, moving all 4 extremities. CN not formally tested but appear grossly intact. Observed to ambulate with normal gait. Skin: Exposed skin warm and dry without any rash. DIAGNOSTIC RESULTS RADIOLOGY (Per Emergency Physician): Interpretation per the Radiologist below, if available at the time of this note: XR RADIUS ULNA RIGHT (2 VIEWS) Result Date: 07/02/2022 Patient Name: JESSICA BARR Diagnostic Radiology ACCESSION EXAM DATE/GAEL (more content not included)... Normal [facility] XR RADIUS ULNA RIGHT (2 VIEW S)on 07-01-2022 Radiology Study observation (narrative) [facility] Work Phone: CBC with Auto Differentialon 06-21-2022 Hematocrit (Bld) [Volume fraction] 39.0 % Low 40 - 52 % [facility] Hemoglobin (Bld) [Mass/Vol] 13.4 g/dL 13 - 18 g/dL [facility] Interpretation and review of laboratory results Abnormal [facility] MCH (RBC) [Entitic mass] 29.2 pg 26 - 34 pg [facility] MCHC (RBC) [Mass/Vol] 34.2 % 32 - 36 % [facility] MCV (RBC) [Entitic vol] 85.4 fL 80 - 98 fL [facility] Platelet distribution width (Bld) [Ratio] 13.9 % 11.5 - 14.5 % [facility] Platelet mean volume (Bld) [Entitic vol] 7.6 fL 7.4 - 12.4 fL [facility] Comment on above: MPV is a calculated measurement using platelet volume ratio. Platelets (Bld) [#/Vol] 259 10*3/uL 140 - 440 10*3/uL [facility] RBC (Bld) [#/Vol] 4.57 10*6/uL 4.4 - 5.9 10*6/uL [facility] WBC (Bld) [#/Vol] 11.6 10*3/uL High 3.6 - 10.7 10*3/uL [facility] Test Performed by [address] [address] [facility] COVID-19, Flu A/B, and RSV C [facility] 06-21-2022 Influenza A by PCR Not detected [facility] Influenza B by PCR Not detected [facility] A RSV PCR Not Detected. Expected Result: Not Detected _ Method: Real-time, RT-PCR This assay was developed by depict and distributed under an Emergency Use Authorization (EUA) granted by the FDA for the qualitative detection of nucleic acids from SARS-CoV-2, Influenza A, Influenza B, and Respiratory Syncytial Virus. Provider and patient fact sheets can be found at https://www.fda.gov/sc handy/763163/download and https://www.fda.gov/sc handy/978930/download. [facility] SARS-CoV-2 (COVID-19) RNA TRAY+probe Ql (Unsp spec) Not detected [facility] Test Performed by [address] [address] [facility] CR Chest Portableon 06-21-20 22 CR Chest Portable Patient Name: JESSICA BARR Diagnostic Radiology ACCESSION EXAM DATE/TIME PROCEDURE ORDERING PROVIDER [id number] 06/21/2022 18:58 EDT CR Chest Portable [facility] CPT code 39907 Reason For Exam (CR Chest Portable) weakness, cough Report EXAM TYPE: RADIOLOGIC EXAMINATION, CHEST, SINGLE VIEW FRONTAL (CXR SINGLE VIEW) EXAM DATE AND TIME: 06/21/2022 6:26 PM EDT INDICATION: Weakness, cough COMPARISON: None available. TECHNIQUE: A single frontal view of the thorax was obtained and reviewed. Special views: None. FINDINGS/IMPRESSION: 1. Lines/Tubes/Devices/Wing rdware: None. 2. Lungs: No consolidation or pulmonary edema. 3. Pleura: No pneumothorax or large pleural effusions. 4. Heart and mediastinum: Normal cardiomediastinal contours. Report Dictated on Final Dictated: 06/21/2022 6:35 pm Dictating Physician: MD PEÑA NEIL Signed Date and Time: 06/21/2022 6:36 pm Signed by: MD PEÑA NEIL Transcribed Date and Time: 06/21/2022 6:35 Normal [facility] Comp Metabolic Panelon 06-21 ALP [Catalytic activity/Vol] 71 U/L Normal 38-126 [facility] Comment on above: Performed By: #### H KRISTA ADRIAN MDIFF #### [facility] [address] [place], [place] ALT [Catalytic activity/Vol] 34 U/L Normal 0-49 [facility] Comment on above: Result Comment: The ALT test is performed by an updated assay method. Please note that the reference intervals have been changed and are now sex specific. Performed By: #### KRISTA SERRANO MDIFF #### [facility] [address] [place] [address] AST [Catalytic activity/Vol] 41 U/L Normal 15-46 [facility] Comment on above: Performed By: #### H KRISTA ADRIAN MDIFF #### [facility] [address] [place] [address] Calcium [Mass/Vol] 9.5 mg/dL Normal 8.4-10.4 [facility] Comment on above: Performed By: #### KRISTA SERRANO MDIFF #### [facility] [address] [place] [address] Glucose [Mass/Vol] 102 mg/dL High 70-100 [facility] Comment on above: Performed By: #### KRISTA SERRANO MDIFF #### [facility] [address] [place], [place] Protein [Mass/Vol] 7.4 g/dL Normal 6.3-8.2 [facility] Comment on above: Performed By: #### KRISTA SERRANO MDIFF #### [facility] [address] [place], [place] Urea nitrogen [Mass/Vol] 10 mg/dL Normal 7-17 [facility] Comment on above: Performed By: #### H KRISTA ADRIAN MDIFF #### [facility] [address] [place], [place] Anion gap [Moles/Vol] 8 mmol/L Normal 3-13 [facility] Comment on above: Performed By: #### KRISTA SERRANO MDIFF #### [facility] [address] [place], [place] Bilirubin [Mass/Vol] 0.6 mg/dL Normal 0.2-1.[address] [facility] Comment on above: Performed By: #### KRISTA SERRANO MDIFF #### [facility] [address] [place], [place] CO2 [Moles/Vol] 25 mmol/L Normal 22-30 [facility] Comment on above: Performed By: #### KRISTA SERRANO MDIFF #### [facility] [address] [place], [place] Creatinine [Mass/Vol] 0.62 mg/dL Normal 0.52-1.25 [facility] Comment on above: Performed By: #### KRISTA SERRANO MDIFF #### [facility] [address] [place], [place] eGFR OTHER > 90.0 Normal >60 [facility] Comment on above: Result Comment: KDIG O guidelines provide the following GFR categories: Stage GFR(ml/min/1.73 m2) Terms G1 >=90 Normal or high G2 60-89 Mildly decreased* G3a 45-59 Mildly to moderately decreased G3b 30-44 Moderately to severely decreased G4 15-29 Severely decreased G5 <15 Kidney failure *Relative to young adult level. In the absence of evidence of kidney damage, neither GFR category G1 nor G2 fulfill the criteria for CKD. The CKD-EPI equation is validated in individuals 18 years of age and older. Currently the best equation for estimating glomerular filtration rate (GFR) from serum creatinine in children is the Bedside Norman equation. It is less accurate in patients with extremes of muscle mass, restriction of dietary protein, ingestion of creatine, extra-renal metabolism of creatinine, or treatment with medications that affect renal tubular creatinine secretion. Performed By: #### H RKISTA ADRIAN MDIFF #### [place] [address] [address] [place], [place] GFR/1.73 sq M.predicted among blacks MDRD (S/P/Bld) [Vol rate/Area] mL/min/{1.73_m2} Normal >60 [facility] Comment on above: Performed By: #### H KRISTA ADRIAN MDIFF #### [address] Albumin [Mass/Vol] 4.2 g/dL Normal 3.5-5.0 [facility] Comment on above: Performed By: #### H KRISTA ADRIAN MDIFF #### [address] Chloride [Moles/Vol] 104 mmol/L Normal 98-[address] [facility] Comment on above: Performed By: #### H KRISTA ADRIAN MDIFF #### [place] [address] [place], [place] Potassium [Moles/Vol] 4.2 mmol/L Normal 3.5-5.1 [facility] Comment on above: Performed By: #### H KRISTA ADRIAN MDIFF #### [address] Sodium [Moles/Vol] 136 mmol/L Normal 135-145 [facility] Comment on above: Performed By: #### KRISTA SERRANO MDIFF #### [address] Comprehensive Metabolic Pane jayla 06-21-2022 Albumin [Mass/Vol] 4.2 g/dL 3.5 - 5 g/dL [facility] ALP (Bld) [Catalytic activity/Vol] 71 U/L 38 - 126 U/L [facility] ALT [Catalytic activity/Vol] 34 U/L 0 - 49 U/L [facility] Comment on above: The ALT test is perf ormed by an updated assay method. Please note that the reference intervals have been changed and are now sex specific. Anion gap [Moles/Vol] 8 mmol/L 3 - 13 mmol/L [facility] AST [Catalytic activity/Vol] 41 U/L 15 - 46 U/L [facility] Bilirubin [Mass/Vol] 0.6 mg/dL 0.2 - 1 .3 mg/dL [facility] Calcium [Mass/Vol] 9.5 mg/dL 8.4 - 10. 4 mg/dL [facility] Chloride [Moles/Vol] 104 mmol/L 98 - 10 7 mmol/L [facility] CO2 [Moles/Vol] 25 mmol/L 22 - 30 mmol/L [facility] Creatinine [Mass/Vol] 0.62 mg/dL 0.52 - 1.25 mg/dL [facility] eGFR mL/min 60 - P INF mL/min [facility] EGFR IF NonAfrican [place] mL/min 60 - PINF mL/min [facility] Comment on above: KDIGO guidelines pro vide the following GFR categories: Stage GFR(ml/min/1.73 m2) Terms G1 >=90 Normal or high G2 60-89 Mildly decreased* G3a 45-59 Mildly to moderately decreased G3b 30-44 Moderately to severely decreased G4 15-29 Severely decreased G5 <15 Kidney failure *Relative to young adult level. In the absence of evidence of kidney damage, neither GFR category G1 nor G2 fulfill the criteria for CKD. The CKD-EPI equation is validated in individuals 18 years of age and older. Currently the best equation for estimating glomerular filtration rate (GFR) from serum creatinine in children is the Bedside Norman equation. It is less accurate in patients with extremes of muscle mass, restriction of dietary protein, ingestion of creatine, extra-renal metabolism of creatinine,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 SCREEN Lab Routine One Time for 1 Occurrences starting 06/17/2022 until 06/17/2022 [facility] Work Phone: Comment on above: One Time for 1 Occur rences starting 06/17/2022 until 06/17/2022 [facility] Immunization Date Immunization Notes Care Provider [facility] 06-01-2024 influenza, seasonal, injectable, preservative free Dr. Lupillo Alvarado MD Work Phone: [facility] 05-27-2023 meningococcal oligosaccharide (groups A, C, Y and W-135) diphtheria toxoid conjugate vaccine (MCV4O); Translations: [Menveo] DARREN CRONIN [employer] [facility] Comment on above: Result Comment: [facility] number listed in cerner is not correct. The correct [facility] [place] [id number] 05-27-2023 meningococcal B vacc ine, recombinant, OMV, adjuvanted; Translations: [Bexsero] DARREN CRONIN [employer] 06-17-2022 tetanus and diphther ia toxoids, adsorbed, preservative free, for adult use (5 Lf of tetanus toxoid and 2 Lf of diphtheria toxoid) Trevor Wheeler MD Work Phone: [facility] Work Phone: Comment on above: Result Comment: 2022: VIS DATE: 04/12/2021 12-14-2014 meningococcal polysaccharide (groups A, C, Y and W-135) diphtheria toxoid conjugate vaccine (MCV4P) DARREN MEHRDAD [employer]OU[employer] MILLER-LEAD ETL DEVELOPER [facility] 12-14-2014 tetanus toxoid, redu nura diphtheria toxoid, and acellular pertussis vaccine, adsorbed DARREN CRONIN [employer] M[employer]ER-LEAD ETL DEVELOPER [facility] 07-15-2013 influenza virus vacc ine, unspecified formulation Ivonne Cooper ROUGE MILLER.LEAD ETL DEVELOPER Work Phone: [facility] 04-30-2004 varicella virus vaccine MAC CRONIN ROUGE MILLER-LEAD ETL DEVELOPER [facility] 2003 DTaP-hepatitis B and poliovirus vaccine DARREN CRONIN ROUGE MILLER-LEAD ETL DEVELOPER [facility] 2003 DTaP-hepatitis B and poliovirus vaccine DARREN MEHRDAD ROUGE MILLER-LEAD ETL DEVELOPER [facility] 2003 DTaP-hepatitis B and poliovirus vaccine DARREN CRONIN ROUGE MILLER-LEAD ETL DEVELOPER [facility] Payers Date Payer Category Payer Medicaid [id number] 2023 Self-pay 2021 Unknown [id number] 2003 Medicaid [place] [employer] [place] [id number] 2003-Present [phone] [place] [address] Medicaid [id number] 2003 Unknown [id number] 2003 Unknown [id number] 2003 Unknown [id number] 2003 Unknown [id number] 2003 Unknown [id number] 2003 Unknown [id number] 2003 Unknown [id number] 2003 Unknown [id number] 1974 Unknown [id number] 1974 Unknown [id number] Unknown Unknown [id number] Unknown [id number] Unknown [id number] Unknown [id number] Unknown [id number] Unknown [id number] Unknown [id number] Unknown [id number] Social History Date Type Detail Facility Start: 12-17-2016 End: 01-29-2024 Tobacco smoking status NHIS Never smoked tobacco [facility] Work Phone: Start: 12-17-2016 End: 04-26-2024 Tobacco use and exposure Smokeless tobacco non-user [facility] Work Phone: Start: 01-30-2022 End: 01-29-2024 Alcohol intake Current non-drinker of alcohol (finding) [facility] Start: 2003 Sex Assigned At Not on file [facility] Start: 01-20-2022 End: 07-02-2022 Exposure to SARS-CoV-2 (event) Not sure [facility] Start: 01-31-2022 End: 06-21-2022 History SDOH Alcohol Frequency 1 [facility] Sex Assigned At [facility] Start: 06-17-2022 End: 02-07-2025 Alcohol intake Current drinker of alcohol (finding) [facility] Work Phone: Start: 06-17-2022 History SDOH Alcohol Frequency 2 [facility] Work Phone: Start: 12-22-2022 Tobacco smoking status Light tobacco smoker (finding) [facility] Start: 01-31-2022 End: 02-08-2025 History of Social function [facility] Work Phone: Start: 01-31-2022 End: 02-08-2025 Alcohol Use Disorder Identification Test - Consumption [AUDIT-C] [facility] Work Phone: How often to you hav e a drink containing alcohol? Never [facility] Work Phone: Average Number of Drinks Not on file [facility] Start: 2016 End: 04-26-2024 Tobacco smoking status NHIS Smokes tobacco daily [facility] Start: 2016 History of tobacco use Cigarette Smoker [facility] How often to you hav e a drink containing alcohol? 2-4 times a month [facility] How many standard dr inks containing alcohol do you have on a typical day? 10 or more [facility] How often do you hav e 6 or more drinks on 1 occasion? Monthly [facility] Start: 03-03-2024 Alcohol Comment 12 pack every other weekend [facility] Start: 08-12-2022 Tobacco Comment 3-4 cigarettes a day [facility] Start: 08-12-2022 Alcohol Comment 1 a week [facility] Start: 11-19-2015 End: 07-02-2022 Sex Male (finding) [facility] Start: 2003 Sex Assigned At Male [facility] Functional Status Date Assessment Result Facility 03-11-2023 [facility]-11[facility]23 Functional Status Standard Safet y ID band on, Call device within reach, Bed in low position, Wheels locked, Bedside Cart Locked, Safety level maintained [facility] 12-22-2022 [facility] Functional Status Standard Safet y ID band on, Call device within reach, Bed in low position, Wheels locked [facility] 06-16-2022 Functional Status Standard Safet y ID band on, Call device within reach, Bed in low position, Wheels locked, Upper/Half-Length side-rails up, Bedside Cart Locked, Visitor at bedside, Safety level maintained [facility] 04-17-2022 Functional Status Up ad trev [facility] Mental Status Date Assessment Result Facility 03-11-2023 Mental Status Orientation Oriented x 4 [facility] 03-11-2023 Mental Status [facility] 12-22-2022 Mental Status Orientation Oriented x 4 [facility] 12-22-2022 Mental Status [facility] 06-16-2022 Mental Status Orientation Oriented x 4 [facility] 04-17-2022 Mental Status Oriented x 4 [facility] Clinical Notes 04-29-2021 to 02-23-2025 Telephone Encounter - Jose Onley Aura Mcguire - 02/13/2025 2:07 PM EDTTelephone Encounter - Jose [employer] Commanding Officer Aura Mcguire - 02/13/2025 2:07 PM EDTPatient InstructionsAttachments Note Date & Type Note Facility 02-23-2025 Hospital Discharge instructions Patient Education 02/23/2025 05:59:15 Laceration, Small or Superficial: Not Sutured Small or Superficial Laceration: Not Stitched A laceration is a cut through the skin. A laceration requires stitches or adriana if it is deep or spread open. A small laceration often doesn't require stitches. You may need a tetanus shot. This may be given if you have no record of this vaccination and the object that caused the cut may lead to tetanus Home care Your healthcare provider may prescribe an antibiotic. This is to help prevent infection. Follow all instructions for taking this medicine. Take the medicine every day until it is gone or you are told to stop. You should not have any left over. The healthcare provider may prescribe medicines for pain. Follow instructions for taking them. Follow the healthcare provider s instructions on how to care for the cut. Wash your hands with soap and warm water before and after caring for cut. This helps prevent infection. Keep the wound clean and dry. If a bandage was applied and it becomes wet or dirty, replace it. Otherwise, leave it in place for the first 24 hours, then change it once a day or as directed. Clean the wound daily: oAfter removing any bandage, wash the area with soap and water. Use a wet cotton swab to loosen and remove any blood or crust that forms. oAfter cleaning, keep the wound clean and dry. Talk with your healthcare provider before applying any antibiotic ointment to the wound. Reapply a fresh bandage. You may remove the bandage to shower as usual after the first 24 hours, but don't soak the area in water (no tub baths or swimming) for the next 5 days. If the area gets wet, gently pat it dry with a clean cloth. Replace the wet bandage with a dry one. Don't do activities that may reinjure your wound. Don't scratch, rub, or pick at the area. Check the wound daily for signs of infection listed below. Follow-up care Follow up with your healthcare provider, or as advised. When to seek medical advice Call your healthcare provider right away if any of these occur: Wound bleeding not controlled by direct pressure Signs of infection, including increasing pain in the wound, increasing wound redness or swelling, or pus or bad odor coming from the wound Fever of 100.4 F (38 C) or higher, or as directed by your healthcare provider Wound edges reopen Wound changes colors Numbness around the wound Decreased movement around the injured area [id number] [employer] [address] [place] [address]. All rights reserved. This information is not intended as a substitute for professional medical care. Always follow your healthcare professional's instructions. Follow Up Care 02/23/2025 05:50:31 With:MITALI MOSHER Address: [address] [place] [phone] When:2-4 days [facility] 02-23-2025 Note Discharge Instructions Thank you for allowing [facility] to assist you with your healthcare needs. The following is important discharge information regarding your hospital visit. Diagnosis from Today's Visit Laceration of left ring finger What to Do Next Instructions from Your Care Team Discharge Return to Work, School, or Sports (Return to Work, School, or Sports) - Ordered -- 02/24/25, May return to: work, 02/23/25 5:58:00 EDT Post Acute Orders No qualifying data available. You Need to Schedule the Following Appointments Follow Up with MITALI MOSHER When:Within 2-4 days Where:[address] [place] [phone] Allergies NKA Medications Please ask your primary doctor or pharmacist before taking any other medication not listed, including over the counter drugs, herbal medications, vitamins and or supplements as they may interact with your home medications. What How Much When Why Instructions Last Dose Unchanged acetaminophen-diphenhydramine (Tylenol PM Extra Strength oral tablet) 1 tab(s) by mouth Daily at bedtime as needed for as needed for pain Unchanged escitalopram (escitalopram 10 mg oral tablet) 1 tab(s) by mouth Once a day Anxiety Duration: 90 Days Unchanged gabapentin (gabapentin 100 mg oral capsule) 1 cap by mouth Three (3) times a day Arm pain Duration: 30 Days Unchanged sertraline (sertraline 25 mg oral tablet) 1 tab(s) by mouth Once a day Generalized anxiety disorder Duration: 30 Days Please take this list to your next doctor s visit. Bring all medications you take, including over the counter medications, herbals and other supplements with you to your doctor s visit. Patients and families are reminded to discard old lists and to update any records with all medication providers or retail pharmacies. Education Materials Small or Superficial Laceration: Not Stitched A laceration is a cut through the skin. A laceration requires stitches or adriana if it is deep or spread open. A small laceration often doesn't require stitches. You may need a tetanus shot. This may be given if you have no record of this vaccination and the object that caused the cut may lead to tetanus Home care Your healthcare provider may prescribe an antibiotic. This is to help prevent infection. Follow all instructions for taking this medicine. Take the medicine every day until it is gone or you are told to stop. You should not have any left over. The healthcare provider may prescribe medicines for pain. Follow instructions for taking them. Follow the healthcare provider s instructions on how to care for the cut. Wash your hands with soap and warm water before and after caring for cut. This helps prevent infection. Keep the wound clean and dry. If a bandage was applied and it becomes wet or dirty, replace it. Otherwise, leave it in place for the first 24 hours, then change it once a day or as directed. Clean the wound daily: oAfter removing any bandage, wash the area with soap and water. Use a wet cotton swab to loosen and remove any blood or crust that forms. oAfter cleaning, keep the wound clean and dry. Talk with your healthcare provider before applying any antibiotic ointment to the wound. Reapply a fresh bandage. You may remove the bandage to shower as usual after the first 24 hours, but don't soak the area in water (no tub baths or swimming) for the next 5 days. If the area gets wet, gently pat it dry with a clean cloth. Replace the wet bandage with a dry one. Don't do activities that may reinjure your wound. Don't scratch, rub, or pick at the area. Check the wound daily for signs of infection listed below. Follow-up care Follow up with your healthcare provider, or as advised. When to seek medical advice Call your healthcare provider right away if any of these occur: Wound bleeding not controlled by direct pressure Signs of infection, including increasing pain in the wound, increasing wound redness or swelling, or pus or bad odor coming from the wound Fever of 100.4 F (38 C) or higher, or as directed by your healthcare provider Wound edges reopen Wound changes colors Numbness around the wound Decreased movement around the injured area [id number] [employer] [address] [place] [address]. All rights reserved. This information is not intended as a substitute for professional medical care. Always follow your healthcare professional's instructions. Additional Information VACCINATE! IT SAVES LIVES! Members of the community who have not yet received the COVID-19 vaccine and would like to receive it can visit one of [facility] vaccine clinics. There are many vaccine clinic locations within the [facility]. For locations and available times, please visit [email or web address].[email or web address] [email or web address] It is important to note that some COVID mobile vaccine clinics are held outdoors and may be canceled in rainy or stormy conditions. To learn more about pediatric vaccinations (ages 5-11), we invite you to visit the [facility] webpage. [email or web address]/pa [email or web address]-Uwkit-Yzxcesgmman-Freque dyme-Kdxej-[email or web address].html To learn more about the COVID-19 vaccine, we invite you to visit the CDC website for a list of frequently asked questions. https://www.cdc.gov/coronavirus/2 019-ncov/vaccines/faq.html [facility] Patient Portal Access Instructions: Stay connected with your healthcare team and access your personal medical information anytime with the [facility] [employer] Patient Portal. If you would like a full copy of your medical records please contact the [facility] Medical Records Department Thursday through Thursday between 8a.m. and 4:30p.m. Please follow the directions below to access the portal: 1.Access the email account you provided upon registration to the [facility].2.Look for an invitation email from [facility].3.Open the email and access the invitation link: Accept Invitation to [facility].Fill in the required momin to create your account. Sign into [email or web address] with your username and password that you created in the above steps to stay up to date. You can then view a summary of results, a summary of your visits, and the ability to download your summaries to your computer or send the information securely to a physician. Remember that your healthcare information is confidential, so carefully consider who you will allow to register on the [facility] Patient Portal for access to your information. You can also access the [facility] Patient Portal on the [facility]. Simply click on Health Records under Health Data and then click on the [employer] logo. HOW TO SAFELY DISPOSE OF PRESCRIPTION MEDICATIONS Please use one of the following methods to safely dispose of your unused medications. 1.Use a drug disposal kit: the drug disposal pouch allows you to safely discard your old and unused drugs. Ask your nurse to give you one when you are discharged.2.Visit a local take-back location: Many local pharmacies and police departments have programs that collect old and unwanted prescription drugs. Call your local pharmacy or go to http://RIDERS.Cryptopay/6R0Eo3z to find one close to you.3.Make use of household items: Use cat litter or old coffee grounds to dispose medications if other options are not available. Mix your drugs with these household products, seal them in an airtight container and throw it into the garbage. Call [facility]: [phone] to be sure your drugs can be disposed of in this way. Some medicines may require a different approach.4.Never flush your medications down the toilet. IF YOU HAVE BEEN PRESCRIBED AN OPIOIDS FOR PAIN If you have been prescribed an opioid (such as hydrocodone, oxycodone or morphine), it is critical to understand the possible side effects and risks of opioid pain medications. Even when taken as directed, opioids can have several side effects including: Tolerance, meaning you might need to take more of a medication for the same pain relief. Nausea, vomiting and/or constipation. Sleepiness, dizziness, dry mouth, confusion, depression or itching. Physical dependence, meaning you have withdrawal symptoms when a medication is stopped ? this can develop within a few days. KNOW YOUR RESPONSIBILITIES It is important to know exactly how much and how often to take the opioid pain medications you are prescribed. Never take opioids in higher amounts or more often than prescribed. Do not combine opioids with alcohol or other drugs that cause drowsiness, such as benzodiazepines, also known as benzos, including diazepam and alprazolam, muscle relaxants or sleep aids. Never sell or share prescription opioids. This is illegal. Store opioids in a secure place and out of reach of others (including children, family, friends and visitors). The last page(s) of this document has been signed and retained as a CHART COPY Signatures Patient Education Materials Laceration, Small or Superficial: Not Sutured Medication Leaflets My discharge plan and instructions have been reviewed and explained to me and I,JESSICA BARR understand my current condition and have read and understand these discharge instructions. I have received a written copy of the plan/instructions. If I have questions, I am aware that I should contact my doctor. 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: Date/Time: Relationship to Patient: ____ Witness Name/Signature: Date/Time: [facility] 02-13-2025 Telephone encounter Note Left message to schedule appointment [facility] 02-13-2025 Miscellaneous Notes Left message to schedule appointment ----- Message from Mario Lancaster sent at 02/08/2025 10:20 AM EDT ----- Regarding: Orthopedics / Arm: Pain / Recent ED Visit Subject Line Format: Orthopedics / [Provider Name or Open & Body Part] / [Issue] Patient has been identified by name and Date of (Y/N): Y Patient: Jessica Barr Date of : 2005 Previous Provider Seen: NA Body Part(s) Identified: LT Arm Diagnosis/Reason For Visit: Numbness/pain Reason for the call/escalation: Patient went to ER for arm numbness. The numbness extended down to some of his fingertips. Now the arm is experiencing pain that has just started within the last 24 hours. Per ER he needs to be seen by . Per tool office must schedule. If reason for call/escalation is discharge from ED/ER or Hospital, which facility was the patient seen at: [facility] bath Was an appointment scheduled (Y/N): N Person calling if other than patient: N Return call to if other than patient: N Best contact number: [phone] Thank you, Mario Kay February 08, 2025 10:20 AM documented in this encounter [facility] 02-08-2025 Hospital Discharge instructions Patient Education 02/08/2025 16:42:48 Carpal Tunnel Syndrome Carpal Tunnel Syndrome Carpal tunnel syndrome is a painful condition of the wrist and arm. It is caused by pressure on the median nerve. The median nerve is one of the nerves that give feeling and movement to the hand. It passes through a tunnel in the wrist called the carpal tunnel. This tunnel is made up of bones and ligaments. Narrowing of this tunnel or swelling of the tissues inside the tunnel puts pressure on the median nerve. This causes numbness, pins and needles, or electric shooting pains in your hand and forearm. Often the pain is worse at night and may wake you when you are asleep. Carpal tunnel syndrome may occur during and with use of control pills. It is more common in workers who must often bend their wrists. It is also common in people who work with power tools that cause strong vibrations. Home care Rest the painful wrist. Avoid repeated bending of the wrist back and forth. This puts pressure on the median nerve. Avoid using power tools with strong vibrations. If you were given a splint, wear it at night while you sleep. You may also wear it during the day for comfort. Move your fingers and wrists often to prevent stiffness. Elevate your arms on pillows when you lie down. Try using the unaffected hand more. Try not to hold your wrists in a bent, downward position. Sometimes changes in the work place may ease symptoms. If you type most of the day, it may help to change the position of your keyboard or add a wrist support. Your wrist should be in a neutral position and not bent back when typing. You may use ozbl-mgl-[id number] pain medicine to treat pain and inflammation, unless another medicine was prescribed. Anti-inflammatory pain medicines, such as ibuprofen or naproxen may be more effective than acetaminophen, which treats pain, but not inflammation. If you have chronic liver or kidney disease or ever had a stomach ulcer or gastrointestinal bleeding, talk with your healthcare provider before using these medicines. Opioid pain medicine will only give temporary relief and does not treat the problem. If pain continues, you may need a shot of a steroid drug into your wrist. If the above methods fail, you may need surgery. This will open the carpal tunnel and release the pressure on the trapped nerve. Follow-up care Follow up with your healthcare provider, or as advised. If X-rays were taken, you will be notified of any new findings that may affect your care. When to seek medical advice Call your healthcare provider right away if any of these occur: Pain not improving with the above treatment Fingers or hand become cold, blue, numb, or tingly Your whole arm becomes swollen or weak [id number] [employer] [address] [place] [address], [place] [address]. All rights reserved. This information is not intended as a substitute for professional medical care. Always follow your healthcare professional's instructions. Follow Up Care 02/08/2025 16:26:34 With:LUL CHICAS DO, [facility] Address: [address] [facility] [place] [address]- [phone] When:2-4 days With:AMILCAR CASON DO, Orthopedic Address: [address] [facility], [place] [phone] When:2-4 days With:ROSEMARIE ZIMMERMAN DO, Orthopedic Address: [address] [facility], [place] [address] [phone] When:2-4 days With:JUSTO FLORES DO, Orthopedic Address: [address], [address] [place] [address]- [phone] When:2-4 days [facility] 02-08-2025 Note Discharge Instructions Thank you for allowing [facility] to assist you with your healthcare needs. The following is important discharge information regarding your hospital visit. Diagnosis from Today's Visit Arm pain Radicular pain What to Do Next Instructions from Your Care Team Discharge Return to Work, School, or Sports (Return to Work, School, or Sports) - Ordered -- 02/08/25, 02/14/25, May return to: work, 02/08/25 16:43:00 EDT Post Acute Orders No qualifying data available. You Need to Schedule the Following Appointments Follow Up with LUL CHICAS DO, [facility] When:Within 2-4 days Where:[address] [facility] [place] [address] [phone] Follow Up with AMILCAR CASON DO Orthopedic When:Within 2-4 days Where:[address] [facility], [place] [address]- [phone] Follow Up with ROSEMARIE ZIMMERMAN DO Orthopedic When:Within 2-4 days Where:[address] [facility], [place] [address]- [phone] Follow Up with JUSTO FLORES DO Orthopedic When:Within 2-4 days Where:[address] [place] [address]- [phone] Allergies NKA Medications Please ask your primary doctor or pharmacist before taking any other medication not listed, including over the counter drugs, herbal medications, vitamins and or supplements as they may interact with your home medications. What How Much When Why Instructions Last Dose New gabapentin (gabapentin 100 mg oral capsule) 1 cap by mouth Three (3) times a day Arm pain Duration: 30 Days Printed Prescription New methylPREDNISolone (Medrol Dosepak 4 mg oral tablet) 1 Packet(s) by mouth Once a day Duration: 6 Days as directed on package labeling Printed Prescription Unchanged acetaminophen-diphenhydramine (Tylenol PM Extra Strength oral tablet) 1 tab(s) by mouth Daily at bedtime as needed for as needed for pain Unchanged escitalopram (escitalopram 10 mg oral tablet) 1 tab(s) by mouth Once a day Anxiety Duration: 90 Days Unchanged sertraline (sertraline 25 mg oral tablet) 1 tab(s) by mouth Once a day Generalized anxiety disorder Duration: 30 Days Please take this list to your next doctor s visit. Bring all medications you take, including over the counter medications, herbals and other supplements with you to your doctor s visit. Patients and families are reminded to discard old lists and to update any records with all medication providers or retail pharmacies. Medication Leaflets gabapentin (GA ba PEN tin) Gralise, Horizant, Neurontin What is the most important information I should know about gabapentin? Gabapentin can cause life-threatening breathing problems, especially if you already have a breathing disorder or if you use other medicines that can make you drowsy or slow your breathing. Seek emergency medical attention if you have very slow breathing. Some people have thoughts about suicide while taking seizure medicine. Stay alert to changes in your mood or symptoms. Tell your doctor right away if you have any sudden changes in mood or behavior, or thoughts about suicide. Seizures may increase if you stop using gabapentin suddenly. Ask your doctor before stopping the medicine. What is gabapentin? Gabapentin is used in adults and children at least 3 years old together with other medicines to treat partial seizures. Gabapentin is also used in adults to treat nerve pain caused by shingles (herpes zoster). Gralise is used only in adults to treat nerve pain. Horizant is used only in adults to treat nerve pain and restless legs syndrome (RLS). Gabapentin may also be used for purposes not listed in this medication guide. What should I discuss with my healthcare provider before taking gabapentin? You should not take gabapentin if you are allergic to it. Tell your doctor if you have or have ever had: breathing problems; diabetes; depression, a mood disorder, or suicidal thoughts or actions; drink alcohol; a history of drug addiction; a seizure; (patients with RLS) if you are a day sleeper or work a shift commander; or kidney disease (or if you are on dialysis). Some people have thoughts about suicide while taking seizure medicine. Children taking gabapentin may have behavior changes. Stay alert to changes in your mood or symptoms. Your family or caregivers should also watch for sudden changes in your behavior. It is not known if gabapentin will harm an unborn baby. Tell your doctor if you are or plan to become . Do not start or stop seizure medication during without your doctor's advice. Having a seizure during could harm both mother and baby. Tell your doctor if you become . If you are , your name may be listed on a registry to track the effects of gabapentin on the baby. Ask a doctor if it is safe to breastfeed while using this medicine. How should I take gabapentin? Follow all directions on your prescription label and read all medication guides or instruction sheets. Your doctor may occasionally change your dose. Take the medicine exactly as directed. Never take gabapentin in larger amounts, or for longer than prescribed. Your dose needs may change if you switch to a different brand, strength, or form of this medicine. Avoid medication errors by using only the medicine your doctor prescribes. You may take gabapentin with or without food. Take Gralise and Horizant with food. If you break a Gabapentin tablet and take only half of it, take the other half at your next dose. Any tablet that has been broken should be used as soon as possible or within a few days. Swallow the tablets of Gralise and Horizant whole. Do not crush, break, or dissolve it. Swallow the capsule whole and do not crush, chew, break, or open it. Measure liquid medicine with the supplied measuring device (not a kitchen spoon). Doses are based on weight in children. Your child's dose may change if the child gains or loses weight. You should not stop taking gabapentin suddenly. Stopping suddenly may cause increased seizures. Follow your doctor's instructions about tapering your dose. This medicine can affect the results of certain medical tests. Tell any doctor who treats you that you are using gabapentin. Your kidney function may need to be checked often and your dose may change based on the results. Store gabapentin tablets and capsules at room temperature away from moisture and heat. Store the liquid medicine in the refrigerator, do not freeze. Follow all storage instructions provided with gabapentin. Your pharmacist can provide more information about how to store this medicine. What happens if I miss a dose? Take the medicine as soon as you can, but skip the missed dose if it is almost time for your next dose. Do not take two doses at one time. If you take Horizant: skip the missed dose and take your next dose at the regular time. Do not use two doses at one time. What happens if I overdose? Seek emergency medical attention or call the Poison Help line at . An overdose can be fatal. Overdose symptoms may include slow breathing, double vision, tremor, slurred speech, drowsiness, change in your mental state, dizziness, tiredness, or diarrhea. What should I avoid while taking gabapentin? Avoid driving or hazardous activity until you know how this medicine will affect you. Dizziness or drowsiness can cause falls, accidents, or severe injuries. Avoid taking an antacid within 2 hours before you take gabapentin. Do not drink alcohol. Dangerous side effects could occur. What are the possible side effects of gabapentin? Get emergency medical help if you have signs of an allergic reaction: hives, difficult breathing, swelling of your face, lips, tongue, or throat. Seek medical treatment if you have a serious drug reaction that can affect many parts of your body. Symptoms may include skin rash, fever, swollen glands, muscle aches, severe weakness, unusual bruising, or yellowing of your skin or eyes. Tell your doctor right away if you have new or sudden changes in mood or behavior, including new or worse depression or anxiety, panic attacks, trouble sleeping, or if you feel impulsive, irritable, agitated, hostile, aggressive, restless, more active or talkative, or have thoughts about suicide or hurting yourself. Gabapentin can slow or stop your breathing, especially if you have recently used an opioid medication or alcohol. A person caring for you should seek emergency medical attention if you have slow breathing with long pauses, blue colored lips, or if you are hard to wake up. Some side effects are more likely in children taking gabapentin. Call your doctor if the child has any of the following side effects: behavior changes, memory problems, trouble concentrating, or acting restless, hostile, or aggressive. Call your doctor at once if you have: drowsiness, dizziness, weakness; problems with balance or muscle movement; or increased seizures. Common side effects may include: fever, chills, sore throat, body aches, tiredness; headache; swelling of your legs and feet; trouble speaking; vision problems, dizziness, drowsiness; tremors, problems with balance or muscle movement; or nausea, vomiting. This is not a complete list of side effects and others may occur. Call your doctor for medical advice about side effects. You may report side effects to FDA at 1-693-TBG-8684. What other drugs will affect gabapentin? Taking gabapentin with other drugs that make you drowsy or slow your breathing can cause dangerous side effects or . Ask your doctor before taking opioid medication, a sleeping pill, a muscle relaxer, or medicine for anxiety or seizures. Tell your doctor about all your current medicines. Many drugs can affect gabapentin, especially: naproxen; opioid medicine--hydrocodone, oxycodone, morphine, buprenorphine; zolpidem; lorazepam; or cimetidine. This list is not complete and many other drugs may affect gabapentin. This includes prescription and rvmp-din-tgywhms medicines, vitamins, and herbal products. Not all possible drug interactions are listed here. Where can I get more information? Your doctor or pharmacist can provide more information about gabapentin. Remember, keep this and all other medicines out of the reach of children, never share your medicines with others, and use this medication only for the indication prescribed. Every effort has been made to ensure that the information provided by [employer]. [employer]') is accurate, up-to-date, and complete, but no guarantee is made to that effect. Drug information contained herein may be time sensitive. [employer] information has been compiled for use by healthcare practitioners and consumers in the [place] and therefore [employer] does not warrant that uses outside of the [place] are appropriate, unless specifically indicated otherwise. [employer]'s drug information does not endorse drugs, diagnose patients or recommend therapy. [employer] drug information is an informational resource designed to assist licensed healthcare practitioners in caring for their patients and/or to serve consumers viewing this service as a supplement to, and not a substitute for, the expertise, skill, knowledge and judgment of healthcare practitioners. The absence of a warning for a given drug or drug combination in no way should be construed to indicate that the drug or drug combination is safe, effective or appropriate for any given patient. [facility] does not assume any responsibility for any aspect of healthcare administered with the aid of information [facility] provides. The information contained herein is not intended to cover all possible uses, directions, precautions, warnings, drug interactions, allergic reactions, or adverse effects. If you have questions about the drugs you are taking, check with your doctor, nurse or pharmacist. Copyright 5099-2048 [facility] what3words. Version: 18.. Revision Date: 03/09/2023. methylprednisolone (oral) (METH il pred NIS oh lone) Medrol, Medrol Dosepak, MethylPREDNISolone Dose Pack What is the most important information I should know about methylprednisolone? You should not use this medicine if you have a fungal infection anywhere in your body. What is methylprednisolone? Methylprednisolone is a steroid that prevents the release of substances in the body that cause inflammation. Methylprednisolone is used to treat many different inflammatory conditions such as arthritis, lupus, psoriasis, ulcerative colitis, allergic disorders, gland (endocrine) disorders, and conditions that affect the skin, eyes, lungs, stomach, nervous system, or blood cells. Methylprednisolone may also be used for purposes not listed in this medication guide. What should I discuss with my healthcare provider before taking methylprednisolone? You should not use methylprednisolone if you are allergic to it, or if you have: a fungal infection anywhere in your body. Methylprednisolone can weaken your immune system, making it easier for you to get an infection. Steroids can also worsen an infection you already have, or reactivate an infection you recently had. Tell your doctor about any illness or infection you have had within the past several weeks. To make sure methylprednisolone is safe for you, tell your doctor if you have ever had: a thyroid disorder; herpes infection of the eyes; stomach ulcers, ulcerative colitis, or diverticulitis; depression, mental illness, or psychosis; liver disease (especially cirrhosis); high blood pressure; osteoporosis; a muscle disorder such as myasthenia gravis; or multiple sclerosis. Also tell your doctor if you have diabetes. Steroid medicines may increase the glucose (sugar) levels in your blood or urine. You may also need to adjust the dose of your diabetes medications. It is not known whether this medicine will harm an unborn baby. Tell your doctor if you are or plan to become . It is not known whether methylprednisolone passes into breast milk or if it could affect the nursing baby. Tell your doctor if you are breast-feeding. How should I take methylprednisolone? Follow all directions on your prescription label. Your doctor may occasionally change your dose. Do not use this medicine in larger or smaller amounts or for longer than recommended. Methylprednisolone is sometimes taken every other day. Follow your doctor's dosing instructions very carefully. Your dose needs may change if you have unusual stress such as a serious illness, fever or infection, or if you have surgery or a medical emergency. Tell your doctor about any such situation that affects you. This medicine can cause unusual results with certain medical tests. Tell any doctor who treats you that you are using methylprednisolone. You should not stop using methylprednisolone suddenly. Follow your doctor's instructions about tapering your dose. Wear a medical alert tag or carry an ID card stating that you take methylprednisolone. Any medical care provider who treats you should know that you take steroid medication. If you need surgery, tell the surgeon ahead of time that you are using methylprednisolone. You may need to stop using the medicine for a short time. Store at room temperature away from moisture and heat. What happens if I miss a dose? Call your doctor for instructions if you miss a dose of methylprednisolone. What happens if I overdose? Seek emergency medical attention or call the Poison Help line at . An overdose of methylprednisolone is not expected to produce life threatening symptoms. However, termite technician use of high steroid doses can lead to symptoms such as thinning skin, easy bruising, changes in the shape or location of body fat (especially in your face, neck, back, and waist), increased acne or facial hair, menstrual problems, impotence, or loss of interest in sex. What should I avoid while taking methylprednisolone? Avoid being near people who are sick or have infections. Call your doctor for preventive treatment if you are exposed to chicken pox or measles. These conditions can be serious or even fatal in people who are using steroid medication. Do not receive a 'live' vaccine while using methylprednisolone. The vaccine may not work as well during this time, and may not fully protect you from disease. Live vaccines include measles, mumps, rubella (MMR), polio, rotavirus, typhoid, yellow fever, varicella (chickenpox), zoster (shingles), and nasal flu (influenza) vaccine. What are the possible side effects of methylprednisolone? Get emergency medical help if you have signs of an allergic reaction: hives; difficult breathing; swelling of your face, lips, tongue, or throat. Call your doctor at once if you have: shortness of breath (even with mild exertion), swelling, rapid weight gain; bruising, thinning skin, or any wound that will not heal; blurred vision, tunnel vision, eye pain, or seeing halos around lights; severe depression, changes in personality, unusual thoughts or behavior; new or unusual pain in an arm or leg or in your back; bloody or tarry stools, coughing up blood or vomit that looks like coffee grounds; seizure (convulsions); or low potassium--leg cramps, constipation, irregular heartbeats, fluttering in your chest, increased thirst or urination, numbness or tingling. Steroids can affect growth in children. Tell your doctor if your child is not growing at a normal rate while using this medicine. Common side effects may include: fluid retention (swelling in your hands or ankles); dizziness, spinning sensation; changes in your menstrual periods; headache; mild muscle pain or weakness; or stomach discomfort, bloating. This is not a complete list of side effects and others may occur. Call your doctor for medical advice about side effects. You may report side effects to FDA at 2-708-ODK-8573. What other drugs will affect methylprednisolone? Other drugs may interact with methylprednisolone, including prescription and pehs-zzi-dgkrcko medicines, vitamins, and herbal products. Tell each of your health care providers about all medicines you use now and any medicine you start or stop using. Where can I get more information? Your pharmacist can provide more information about methylprednisolone. Remember, keep this and all other medicines out of the reach of children, never share your medicines with others, and use this medication only for the indication prescribed. Every effort has been made to ensure that the information provided by [employer]. [employer]') is accurate, up-to-date, and complete, but no guarantee is made to that effect. Drug information contained herein may be time sensitive. [employer] information has been compiled for use by healthcare practitioners and consumers in the [place] and therefore [employer] does not warrant that uses outside of the [place] are appropriate, unless specifically indicated otherwise. [employer] drug information does not endorse drugs, diagnose patients or recommend therapy. [employer] drug information is an informational resource designed to assist licensed healthcare practitioners in caring for their patients and/or to serve consumers viewing this service as a supplement to, and not a substitute for, the expertise, skill, knowledge and judgment of healthcare practitioners. The absence of a warning for a given drug or drug combination in no way should be construed to indicate that the drug or drug combination is safe, effective or appropriate for any given patient. [employer] does not assume any responsibility for any aspect of healthcare administered with the aid of information [employer] provides. The information contained herein is not intended to cover all possible uses, directions, precautions, warnings, drug interactions, allergic reactions, or adverse effects. If you have questions about the drugs you are taking, check with your doctor, nurse or pharmacist. Copyright 4928-5853 [facility] what[employer]words. Version: 9.01. Revision Date: 05/06/2017. Education Materials Carpal Tunnel Syndrome Carpal tunnel syndrome is a painful condition of the wrist and arm. It is caused by pressure on the median nerve. The median nerve is one of the nerves that give feeling and movement to the hand. It passes through a tunnel in the wrist called the carpal tunnel. This tunnel is made up of bones and ligaments. Narrowing of this tunnel or swelling of the tissues inside the tunnel puts pressure on the median nerve. This causes numbness, pins and needles, or electric shooting pains in your hand and forearm. Often the pain is worse at night and may wake you when you are asleep. Carpal tunnel syndrome may occur during and with use of control pills. It is more common in workers who must often bend their wrists. It is also common in people who work with power tools that cause strong vibrations. Home care Rest the painful wrist. Avoid repeated bending of the wrist back and forth. This puts pressure on the median nerve. Avoid using power tools with strong vibrations. If you were given a splint, wear it at night while you sleep. You may also wear it during the day for comfort. Move your fingers and wrists often to prevent stiffness. Elevate your arms on pillows when you lie down. Try using the unaffected hand more. Try not to hold your wrists in a bent, downward position. Sometimes changes in the work place may ease symptoms. If you type most of the day, it may help to change the position of your keyboard or add a wrist support. Your wrist should be in a neutral position and not bent back when typing. You may use dndc-auk-rcgsnqn pain medicine to treat pain and inflammation, unless another medicine was prescribed. Anti-inflammatory pain medicines, such as ibuprofen or naproxen may be more effective than acetaminophen, which treats pain, but not inflammation. If you have chronic liver or kidney disease or ever had a stomach ulcer or gastrointestinal bleeding, talk with your healthcare provider before using these medicines. Opioid pain medicine will only give temporary relief and does not treat the problem. If pain continues, you may need a shot of a steroid drug into your wrist. If the above methods fail, you may need surgery. This will open the carpal tunnel and release the pressure on the trapped nerve. Follow-up care Follow up with your healthcare provider, or as advised. If X-rays were taken, you will be notified of any new findings that may affect your care. When to seek medical advice Call your healthcare provider right away if any of these occur: Pain not improving with the above treatment Fingers or hand become cold, blue, numb, or tingly Your whole arm becomes swollen or weak [id number] [employer]. [address] [place] [address]. All rights reserved. This information is not intended as a substitute for professional medical care. Always follow your healthcare professional's instructions. Additional Information VACCINATE! IT SAVES LIVES! Members of the community who have not yet received the COVID-19 vaccine and would like to receive it can visit one of [facility] vaccine clinics. There are many vaccine clinic locations within the [facility]. For locations and available times, please visit www.gettheshot.coronavirus.[place].g ov/. It is important to note that some COVID mobile vaccine clinics are held outdoors and may be canceled in rainy or stormy conditions. To learn more about pediatric vaccinations (ages 5-11), we invite you to visit the [facility] webpage. https://www.[facility].org/pa ges/6078-Scfwb-Lfksbfabggq-Freque esfp-Rnjjn-Jhdppctgd.html To learn more about the COVID-19 vaccine, we invite you to visit the CDC website for a list of frequently asked questions. https://www.cdc.gov/coronavirus/2 019-ncov/vaccines/faq.html [facility] [employer] Patient Portal Access Instructions: Stay connected with your healthcare team and access your personal medical information anytime with the [facility] Patient Portal. If you would like a full copy of your medical records please contact the [facility] Medical Records Department Thursday through Thursday between 8a.m. and 4:30p.m. Please follow the directions below to access the portal: 1.Access the email account you provided upon registration to the [facility].2.Look for an invitation email from [facility].3.Open the email and access the invitation link: Accept Invitation to [facility].Fill in the required momin to create your account. Sign into [email or web address] with your username and password that you created in the above steps to stay up to date. You can then view a summary of results, a summary of your visits, and the ability to download your summaries to your computer or send the information securely to a physician. Remember that your healthcare information is confidential, so carefully consider who you will allow to register on the [facility] Patient Portal for access to your information. You can also access the [facility] Patient Portal on the [employer] sammy. Simply click on Health Records under Health Data and then click on the [employer] logo. HOW TO SAFELY DISPOSE OF PRESCRIPTION MEDICATIONS Please use one of the following methods to safely dispose of your unused medications. 1.Use a drug disposal kit: the drug disposal pouch allows you to safely discard your old and unused drugs. Ask your nurse to give you one when you are discharged.2.Visit a local take-back location: Many local pharmacies and police departments have programs that collect old and unwanted prescription drugs. Call your local pharmacy or go to http://bit.ly/5M8Fz3q to find one close to you.3.Make use of household items: Use cat litter or old coffee grounds to dispose medications if other options are not available. Mix your drugs with these household products, seal them in an airtight container and throw it into the garbage. Call [facility]: [phone] to be sure your drugs can be disposed of in this way. Some medicines may require a different approach.4.Never flush your medications down the toilet. IF YOU HAVE BEEN PRESCRIBED AN OPIOIDS FOR PAIN If you have been prescribed an opioid (such as hydrocodone, oxycodone or morphine), it is critical to understand the possible side effects and risks of opioid pain medications. Even when taken as directed, opioids can have several side effects including: Tolerance, meaning you might need to take more of a medication for the same pain relief. Nausea, vomiting and/or constipation. Sleepiness, dizziness, dry mouth, confusion, depression or itching. Physical dependence, meaning you have withdrawal symptoms when a medication is stopped ? this can develop within a few days. KNOW YOUR RESPONSIBILITIES It is important to know exactly how much and how often to take the opioid pain medications you are prescribed. Never take opioids in higher amounts or more often than prescribed. Do not combine opioids with alcohol or other drugs that cause drowsiness, such as benzodiazepines, also known as benzos, including diazepam and alprazolam, muscle relaxants or sleep aids. Never sell or share prescription opioids. This is illegal. Store opioids in a secure place and out of reach of others (including children, family, friends and visitors). The last page(s) of this document has been signed and retained as a CHART COPY Signatures Patient Education Materials Carpal Tunnel Syndrome Medication Leaflets gabapentin, methylprednisolone (oral) My discharge plan and instructions have been reviewed and explained to me and I,JESSICA BARR understand my current condition and have read and understand these discharge instructions. I have received a written copy of the plan/instructions. If I have questions, I am aware that I should contact my doctor. 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: Date/Time: Relationship to Patient: ____ Witness Name/Signature: Date/Time: [facility] 02-08-2025 Telephone encounter Note ----- Message from Mario Lancaster sent at 02/08/2025 10:20 AM EDT ----- Regarding: Orthopedics / Arm: Pain / Recent ED Visit Subject Line Format: Orthopedics / [Provider Name or Open & Body Part] / [Issue] Patient has been identified by name and Date of (Y/N): Y Patient: Jessica Barr Date of : 2005 Previous Provider Seen: NA Body Part(s) Identified: LT Arm Diagnosis/Reason For Visit: Numbness/pain Reason for the call/escalation: Patient went to ER for arm numbness. The numbness extended down to some of his fingertips. Now the arm is experiencing pain that has just started within the last 24 hours. Per ER he needs to be seen by . Per tool office must schedule. If reason for call/escalation is discharge from ED/ER or Hospital, which facility was the patient seen at: [facility] bath Was an appointment scheduled (Y/N): N Person calling if other than patient: N Return call to if other than patient: N Best contact number: [phone] Thank you, Mario Kay February 08, 2025 10:20 AM [facility] 01-29-2025 Discharge summary [facility] 10-18-2024 Telephone encounter Note Pt seen in ED in June 2022 as a trauma and found to have multiple lung nodules: Several scattered pulmonary nodules, some of which are calcified and likely relate to prior granulomatous disease exposure and others of which are indeterminant. Based on the 2017 Amanda Society guidelines, in a patient this age, follow-up of small (<6 mm) incidentally found nodules is typically not indicated*. Pt did not have repeat imaging done and did not reschedule in [facility]. Letter mailed to patient as a reminder for OPTIONAL repeat imaging. [facility] 10-18-2024 Miscellaneous Notes Pt seen in ED in June 2022 as a trauma and found to have multiple lung nodules: Several scattered pulmonary nodules, some of which are calcified and likely relate to prior granulomatous disease exposure and others of which are indeterminant. Based on the 2017 Amanda Society guidelines, in a patient this age, follow-up of small (<6 mm) incidentally found nodules is typically not indicated*. Pt did not have repeat imaging done and did not reschedule in [facility]. Letter mailed to patient as a reminder for OPTIONAL repeat imaging. documented in this encounter [facility] 08-11-2024 Note ORIGINAL EXAMINATION: THREE XRAY VIEWS OF THE RIGHT WRIST08/11/2024 2:59 pm COMPARISON: None available HISTORY: ORDERING SYSTEM PROVIDED HISTORY: Reason for Exam: pain . Per patient, pain in wrist, no trauma, prior surgeries FINDINGS: Wrist: No acute fracture or dislocation is identified. The joint spaces are maintained. Carpal arcs are preserved. The scapholunate interval is normal. No suspicious bony lesion. Surgical fixation hardware of the distal radius and ulna is intact without loosening. Chronic remodeling of distal radius. IMPRESSION: No acute radiographic findings. I have personally reviewed the images of this examination and agree with the resident's findings and interpretation. Interpreted by: Ed Westbrook MD Preliminary Report By: Santy Brock Electronically signed By Ed Westbrook MD Dictated Date: 08/11/2024 3:29:50 PM Prelim Date: 08/11/2024 3:52:26 PM Sign Date: 08/11/2024 3:52:26 PM Ordering Provider: [facility] 06-02-2024 Note [facility] Medical Records Department [address] [place] [address] Discharge Summary 06/02/24 1442 MR#: [id number] Acct: [id number] Name: JESSICA BARR Rep #: [id number] : 2005 19 From: Yvette Nieto DO PCP: Care Physician,No Primary Status:ADM [place] [facility] [id number] Providers Date of Admission: 05/30/24 Date of Discharge: 06/02/24 Primary Care Physician: Sindi Primary Care Phys Consultations 05/30/24 17:57 Consult: ENT Routine Consulting Provider: Yuriy Ding Reason for Consult: throat abscess EMERGENT Consult: No MD Notified: Yes Date Notified: 05/30/24 Time Notified: 17:29 Method of Notification: ED Physician Initiated Reason For Visit: NECK ABSCESS Diagnosis Discharge Diagnosis (1) Abscess of neck: Status: Acute Code(s): L02.11 - Cutaneous abscess of neck (2) Leukocytosis: Status: Inactive Code(s): D72.829 - Elevated white blood cell count, unspecified Medications at Discharge Home Medications amoxicillin 875 mg-potassium clavulanate 125 mg tablet 1 tab PO BID #20 tabs 06/02/24 ibuprofen 400 mg tablet 800 mg (2 x 400 mg) PO Q8H PRN PRN Pain Score 1-10 #15 tabs 06/02/24 oxycodone 5 mg tablet 5 mg PO Q6H PRN PRN Pain Score 6-10 3 days #12 tabs 06/02/24 Hospital Course Operations None Procedures - (CT neck soft tissue x 2) Summary of Care Provided Minutes Spent on Discharge: 28 Hospital Course: Patient is a 19-year-old white male who presents emergency department was commenced on 05/30/2024 with right-sided neck pain and swelling. He had been feeling unwell for about 4 weeks and was diagnosed with mono. Three days prior to presentation he came to the emergency department feeling generally unwell and complaining of some right sided throat pain and was started on prednisone. He did not improve and actually started to feel worse so he came back to the emergency department as noted above. He was noted to have a right sided palpable neck mass for which a CT was performed of the soft tissue in his neck. Hypodense mass was noted and consistent with abscess. ENT evaluated the patient in the emergency department and advised ICU admission with IV antibiotics and IV steroids. He was admitted to the ICU and maintained on IV antibiotics. On 05/31/2024 the patient was to be taken to surgery however the abscess spontaneously ruptured later in the afternoon and he did not require any surgical intervention. He was seen by ENT and doing much better however he had increasing pain overnight and there was concern for reaccumulation of abscess fluid so a repeat CT scan was performed. Repeat CT showed almost complete resolution of the previous seen abscess in the right peritonsillar region with a postdrainage change noted and the epiglottis as well as the right aryepiglottic fold was unremarkable. At that point he was started on a regular diet and able to be transferred to the medical floor. He remained stable throughout the night having mild intermittent pain. He was tolerating a p.o. diet, handling his secretions well had minimal pain with palpation and had normal voice and jaw excursion. I reviewed the case with ENT and they felt he was safe to discharge home. The plan will be for another 10 days of oral antibiotics with Augmentin and then ENT would like to see him in the office in the next month. Prescriptions for Augmentin, and a short course of oxycodone and prescription ibuprofen were sent to the pharmacy prior to discharge. The patient was discharged in stable condition on 06/02/2024. Discharge diagnoses: Right sided neck mass/abscess-resolved Leukocytosis-resolved Tobacco abuse Physical Exam Const alert, oriented x3, no apparent distress, average body habitus, no limitations, healthy appearing and well nourished Constitutional Narrative: Young, white male, sitting up in bed, appears if he is feeling better today, does not appear acutely ill, managing secretions well, voice is clear, watching television General Appearance: cooperative, comfortable, well kempt and well developed Exam Limitations: no limitations HEENT normocephalic, head/scalp atraumatic, hearing grossly normal bilaterally and moist oral mucous membranes HEENT Narrative: Mallampati 2, no thrush, no oral abnormality identified, normal excursion of jaw Neck supple Neck Narrative: No significant fullness noted on the right side of his neck, no submandibular fullness, trachea midline, no thrush Resp normal respiratory effort, no retractions, no use of accessory muscles and clear to auscultation bilaterally Auscultation: Negative for rales, rhonchi or wheezes Cardio regular rate, regular rhythm, S1 normal heart sound, S2 normal heart sound, no murmurs, no rub, no gallops and no clicks GI normal to inspection, nondistended, normoactive bowel sounds, soft to palpation and (more content not included)... [facility] 05-30-2024 Note [facility] Medical Records Department [address] [place] [address] Consultation 05/30/24 1526 MR#: [id number] Acct: [id number] Name: JESSICA BARR Rep #: [id number] : 2005 19 From: Yuriy Ding MD PCP: Care Physician,No Primary Status:REG ER Location: ED Assessment Plan Assessment/Plan (1) Abscess of neck: PLAN: 19 year old with lateral pharyngeal wall abscess after mono/pharyngitis -scope exam with glottis unaffected, some right piriform sinus fullness, airway clear -cultures taken by ED -WBC 28 - has been on prednisone -unasyn started -ICU admit, will observe response on antibiotics HPI Consult Data Date of Consult: 05/30/24 HPI Narrative Reason for Consultation: pharyngeal abscess HPI Narrative: JESSICA BARR, is a 19 M who presents with a pharyngeal abscess. [place] positive, progressively worsening sore throat; placed on prednisone, no antibiotics. CT demonstrated right lateral pharyngeal abscess. Clear voice, tolerating secretions. PFSH Home Medications ???Medication ???Instructions ???Recorded ???Last Taken ???Type prednisone 20 mg tablet 40 mg (2 x 20 mg) PO DAILY 5 days 05/27/24 Unknown Rx #10 tabs Allergy/AdvReac Type Severity Reaction Status Date / Time No Known Allergies Allergy Verified 05/30/24 11:54 Social History Smoking Status: Current every day smoker tobacco type: cigarettes and e-cigarettes ROS Constitutional Constitutional: Reports systems reviewed and no addt'l complaints, except as documented Physical Exam Const alert and oriented x3 General Appearance: cooperative Orientation / Consciousness: awake HEENT HEENT Narrative: right cervical fullness/induration with no significant erythema. no stridor or turbulent breathing. tolerating secretions. Nose: external nose normal Lab / Micro Data 05/30/24 13:40 05/30/24 13:40 Labs: Laboratory Results - last 24 hr 05/30/24 13:40: WBC 28.6 H, RBC 4.80, Hgb 13.9, Hct 41.6, MCV 86.7, MCH 29.0, MCHC 33.4, RDW Std Deviation 42.1, RDW Coeff of Emigdio 13.2, Plt Count 638 H, MPV 9.0, Immature Gran % (Auto) 1.100 H, N eut % (Auto) 90.2 H, Lymph % (Auto) 3.9 L, [place] % (Auto) 4.5, Eos % (Auto) 0.0, Baso % (Auto) 0.3, A bsolute Neuts (auto) 25.8 H, Absolute Lymphs (auto) 1.12, Nucleated RBC % 0, Differential Comment COMMENT, Sodium 138, Potassium 4.2, Chloride 104, Carbon Dioxide 27.0, Anion Gap 7, BUN 13, Creatinine 0.74, Estim Creat Clear Calc 157.91, Est GFR (MDRD) Af Amer 173, Est GFR (MDRD) Non-Af 143, BUN/Creatinine Ratio 17.7, Glucose 122 H, Calcium 9.6, Total Bilirubin 0.50, Direct Bilirubin 0.17, AST 9 L, ALT 15 L, Alkaline Phosphatase 94, Total Protein 7.9, Albumin 3.5, Globulin 4.4 H Imaging Radiology Impression Soft Tissue Neck CT 05/30/24 13:29 IMPRESSION: 3.5 cm x 2.6 cm x 3.1 cm hypodense soft tissue mass rising from the right side of the tonsils and extending towards the right oropharynx with thickening of the epiglottis as well as the right aryepiglottic folds. An abscess should be ruled out. Small right cervical lymph nodes. Electronically Signed: Servando Felix MD at 14:23 EDT , 05/30/24 7745 Cosigner Signature (if applicable): CC: No Primary Care Physician Signed [facility] 05-13-2024 Instructions Ivonne Cooepr APRN.[employer]AD E[employer] DEVELOPER - 05/13/2024 12:37 PM EDT ASSESSMENT/PLAN: 1. Sore throat - ICD9: 462, ICD10: J02.9 (primary diagnosis) - suspect viral - Group A strep molecular testing negative - Discussed supportive care treatment with fluids, rest and analgesia. - STREP A MOLECULAR (POC) 2. Viral illness - ICD9: 079.99, ICD10: B34.9 - Discussed viral etiology and rationale for treatment. - Symptomatic treatment with prn analgesia - Supportive care with fluids and rest - COVID & INFLUENZA A/B & RSV PCR, ROUTINE - Follow-up with your PCP in 3-5 days if symptoms have not improved or sooner if symptoms worsen - Discussed red flags and need for immediate medical evaluation if any occur. - Discussed supportive care treatment with fluids, rest and analgesia. - Discussed expected course of illness Ivonne Cooper APRN.[employer] DEVELOPER Treatment for Viral Upper Respiratory Tract Infections Your body will kill off the virus by itself. Additionally, you can prime your body's immune system. This may help you get better more quickly. Drink lots of fluids Make sure you are eating well Get plenty of rest We do not have any medications that kill off these viruses. Antibiotics are used to treat bacterial infections; however, they are not active against viral infections. There are some things that might help you feel better, though. Vaporizers, humidifiers, hot showers, and hot fluids help open respiratory and sinus passages [place] Nas[place] may offer relief of nasal and head congestion Douglas's Vapor Rub may relieve congestion Tylenol and Advil help control fevers and headaches Salt water gargles help relieve sore throats Chloraceptic spray or throat lozenges may also help relieve sore throat symptoms Occasionally, viral infections turn into something more serious. You should see your doctor or return to the Urgent Care if: You have fevers for longer than five days You have fevers above 102 degrees You are still sick after 10 days You have shortness of breath or wheezing After several days you are getting worse rather than better documented in this encounter [facility] 05-13-2024 Note HNO ID: [id number] Author: IVONNE COOPER APRN.BENNY Service: ? Author Type: Nurse Practitioner Type: Progress Notes Filed: 05/13/2024 12:37 Note Text: Subjective Fever Associated symptoms include headaches and sore throat. Pertinent negatives include no chest pain, no diarrhea, no vomiting, no congestion and no cough. Jessica Barr is a 19 year old male who presents with sore throat, body aches, headache since yesterday. He has not had a fever over 101 degrees F. He took ibuprofen this morning. He has not had any known sick contacts. Review of Systems Constitutional: Positive for malaise/fatigue. Negative for chills and fever. HENT: Positive for sore throat. Negative for congestion and ear pain. Respiratory: Negative for cough and sputum production. Cardiovascular: Negative for chest pain. Gastrointestinal: Negative for diarrhea, nausea and vomiting. Musculoskeletal: Positive for myalgias. Neurological: Positive for headaches. BP 115/76 Pulse 111 Temp 37.2 ?C (99 ?F) Resp 20 Wt 79 kg (174 lb 2.6 oz) SpO2 98% PAST MEDICAL HISTORY No date: ADHD (attention deficit hyperactivity disorder) Comment: 12 y.o. 04/2021: COVID-19 No date: Nasal fracture Comment: 3 y.o No date: Otitis media in diseases classified elsewhere, bilateral Comment: 7 y.o. PAST SURGICAL HISTORY 2006: W EAR TUBE Comment: bilateral years ALLERGIES Patient has no known allergies. MEDICATIONS buPROPion XL (WELLBUTRIN XL) 150 mg 24 hr tablet Take 1 tablet by mouth once daily. miconazole (LOTRIMIN AF) 2 % powder Apply 1 application to affected area once daily. (Patient not taking: Reported on 02/29/2024) ibuprofen (ADVIL) 200 mg tablet Take 200 mg by mouth every 6 hours as needed. (Patient not taking: Reported on 01/29/2024) FAMILY HISTORY Problem Relation Age of Onset Diabetes Maternal Grandmother Coronary Artery Disease Maternal Grandfather ND Coronary Artery Disease Paternal Grandfather ND Breast Cancer Other Social History Tobacco Use Smoking status: Every Day Current packs/day: 1.00 Average packs/day: 1 pack/day for 8.1 years (8.1 ttl pk-yrs) Types: Cigarettes Start date: 2016 Smokeless tobacco: Never Vaping Use Vaping status: Never Used Substance Use Topics Alcohol use: Yes Comment: 12 pack every other weekend Drug use: Never Objective Physical Exam Vitals and nursing note reviewed. Constitutional: General: He is not in acute distress. Appearance: Normal appearance. He is not ill-appearing. HENT: Right Ear: Tympanic membrane, ear canal and external ear normal. Left Ear: Tympanic membrane, ear canal and external ear normal. Nose: Nose normal. Mouth/Throat: Mouth: Mucous membranes are moist. Pharynx: Uvula midline. Posterior oropharyngeal erythema present. No oropharyngeal exudate. Tonsils: Tonsillar exudate present. 2+ on the right. 2+ on the left. Cardiovascular: Rate and Rhythm: Normal rate and regular rhythm. Heart sounds: Normal heart sounds. Pulmonary: Effort: Pulmonary effort is normal. No respiratory distress. Breath sounds: Normal breath sounds. No wheezing or rales. Musculoskeletal: Cervical back: Neck supple. Lymphadenopathy: Cervical: No cervical adenopathy. Skin: General: Skin is warm and dry. Findings: No erythema or rash. Neurological: Mental Status: He is alert. ASSESSMENT/PLAN: 1. Sore throat - ICD9: 462, ICD10: J02.9 (primary diagnosis) - suspect viral - Group A strep molecular testing negative - Discussed supportive care treatment with fluids, rest and analgesia. - STREP A MOLECULAR (POC) 2. Viral illness - ICD9: 079.99, ICD10: B34.9 - Discussed viral etiology and rationale for treatment. - Symptomatic treatment with prn analgesia - Supportive care with fluids and rest - COVID AND INFLUENZA A/B AND RSV PCR, ROUTINE - Follow-up with your PCP in 3-5 days if symptoms have not improved or sooner if symptoms worsen - Discussed red flags and need for immediate medical evaluation if any occur. - Discussed supportive care treatment with fluids, rest and analgesia. - Discussed expected course of illness Ivonne Cooper APRN.[facility] 05-13-2024 History of Presen t illness Narrative Subjective Fever Associated symptoms include headaches and sore throat. Pertinent negatives include no chest pain, no diarrhea, no vomiting, no congestion and no cough. Jessica Barr is a 19 year old male who presents with sore throat, body aches, headache since yesterday. He has not had a fever over 101 degrees F. He took ibuprofen this morning. He has not had any known sick contacts. Review of Systems Constitutional: Positive for malaise/fatigue. Negative for chills and fever. HENT: Positive for sore throat. Negative for congestion and ear pain. Respiratory: Negative for cough and sputum production. Cardiovascular: Negative for chest pain. Gastrointestinal: Negative for diarrhea, nausea and vomiting. Musculoskeletal: Positive for myalgias. Neurological: Positive for headaches. BP 115/76 Pulse 111 Temp 37.2 C (99 F) Resp 20 Wt 79 kg (174 lb 2.6 oz) SpO2 98% PAST MEDICAL HISTORY No date: ADHD (attention deficit hyperactivity disorder) Comment: 12 y.o. 04/2021: COVID-19 No date: Nasal fracture Comment: 3 y.o No date: Otitis media in diseases classified elsewhere, bilateral Comment: 7 y.o. PAST SURGICAL HISTORY 2005: W EAR TUBE Comment: bilateral years ALLERGIES Patient has no known allergies. MEDICATIONS buPROPion XL (WELLBUTRIN XL) 150 mg 24 hr tablet Take 1 tablet by mouth once daily. miconazole (LOTRIMIN AF) 2 % powder Apply 1 application to affected area once daily. (Patient not taking: Reported on 02/29/2024) ibuprofen (ADVIL) 200 mg tablet Take 200 mg by mouth every 6 hours as needed. (Patient not taking: Reported on 01/29/2024) FAMILY HISTORY Problem Relation Age of Onset Diabetes Maternal Grandmother Coronary Artery Disease Maternal Grandfather ND Coronary Artery Disease Paternal Grandfather ND Breast Cancer Other Social History Tobacco Use Smoking status: Every Day Current packs/day: 1.00 Average packs/day: 1 pack/day for 8.1 years (8.1 ttl pk-yrs) Types: Cigarettes Start date: 2016 Smokeless tobacco: Never Vaping Use Vaping status: Never Used Substance Use Topics Alcohol use: Yes Comment: 12 pack every other weekend Drug use: Never Objective Physical Exam Vitals and nursing note reviewed. Constitutional: General: He is not in acute distress. Appearance: Normal appearance. He is not ill-appearing. HENT: Right Ear: Tympanic membrane, ear canal and external ear normal. Left Ear: Tympanic membrane, ear canal and external ear normal. Nose: Nose normal. Mouth/Throat: Mouth: Mucous membranes are moist. Pharynx: Uvula midline. Posterior oropharyngeal erythema present. No oropharyngeal exudate. Tonsils: Tonsillar exudate present. 2+ on the right. 2+ on the left. Cardiovascular: Rate and Rhythm: Normal rate and regular rhythm. Heart sounds: Normal heart sounds. Pulmonary: Effort: Pulmonary effort is normal. No respiratory distress. Breath sounds: Normal breath sounds. No wheezing or rales. Musculoskeletal: Cervical back: Neck supple. Lymphadenopathy: Cervical: No cervical adenopathy. Skin: General: Skin is warm and dry. Findings: No erythema or rash. Neurological: Mental Status: He is alert. ASSESSMENT/PLAN: 1. Sore throat - ICD9: 462, ICD10: J02.9 (primary diagnosis) - suspect viral - Group A strep molecular testing negative - Discussed supportive care treatment with fluids, rest and analgesia. - STREP A MOLECULAR (POC) 2. Viral illness - ICD9: 079.99, ICD10: B34.9 - Discussed viral etiology and rationale for treatment. - Symptomatic treatment with prn analgesia - Supportive care with fluids and rest - COVID & INFLUENZA A/B & RSV PCR, ROUTINE - Follow-up with your PCP in 3-5 days if symptoms have not improved or sooner if symptoms worsen - Discussed red flags and need for immediate medical evaluation if any occur. - Discussed supportive care treatment with fluids, rest and analgesia. - Discussed expected course of illness Ivonne Cooper APRN.[employer] E[employer] DEVELOPER documented in this encounter [facility] 04-26-2024 Note HNO ID: [id number] Author: LUL BROWN APRN.[employer] DEVELOPER Service: ? Author Type: Nurse Practitioner Type: Progress Notes Filed: 04/26/2024 14:14 Note Text: Subjective HPI Nontoxic-appearing male presents urgent care chief complaint flu like symptoms. Duration of symptoms 2 days. 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 No OTC medications. No known sick contacts. Does work in public. Denies any fever productive cough chest pain shortness of breath pleuritic pain hemoptysis nausea vomiting abdominal pain change in bowel or bladder habits. Past medical history prescription medication use and allergies reviewed. .Patient presents with: Cough: Headache, sore throat, body aches x 2 days PAST MEDICAL HISTORY No date: ADHD (attention deficit hyperactivity disorder) Comment: 12 y.o. 04/2021: COVID-19 No date: Nasal fracture Comment: 3 y.o No date: Otitis media in diseases classified elsewhere, bilateral Comment: 7 y.o. PAST SURGICAL HISTORY 2006: W EAR TUBE Comment: bilateral years ALLERGIES Patient has no known allergies. MEDICATIONS buPROPion XL (WELLBUTRIN XL) 150 mg 24 hr tablet Take 1 tablet by mouth once daily. miconazole (LOTRIMIN AF) 2 % powder Apply 1 application to affected area once daily. (Patient not taking: Reported on 02/29/2024) ibuprofen (ADVIL) 200 mg tablet Take 200 mg by mouth every 6 hours as needed. (Patient not taking: Reported on 01/29/2024) FAMILY HISTORY Problem Relation Age of Onset Diabetes Maternal Grandmother Coronary Artery Disease Maternal Grandfather ND Coronary Artery Disease Paternal Grandfather ND Breast Cancer Other Social History Tobacco Use Smoking status: Every Day Current packs/day: 1.00 Average packs/day: 1 pack/day for 8.0 years (8.0 ttl pk-yrs) Types: Cigarettes Start date: 2016 Smokeless tobacco: Never Vaping Use Vaping status: Never Used Substance Use Topics Alcohol use: Yes Comment: 12 pack every other weekend Drug use: Never BP 129/89 Pulse 85 Temp 36.9 ?C (98.5 ?F) Resp 20 Wt 78 kg (171 lb 15.3 oz) SpO2 97% Review of Systems Constitutional: Positive for chills and malaise/fatigue. Negative for fever. HENT: Positive for congestion and sore throat. Negative for ear discharge, ear pain and sinus pain. Eyes: Negative for blurred vision, pain, discharge and redness. Respiratory: Positive for cough. Negative for hemoptysis, sputum production, shortness of breath, wheezing and stridor. Cardiovascular: Negative for chest pain. Gastrointestinal: Negative for abdominal pain, diarrhea, nausea and vomiting. Musculoskeletal: Positive for myalgias. Skin: Negative for itching and rash. Neurological: Positive for headaches. Negative for dizziness. Objective Physical Exam Constitutional: General: He is not in acute distress. Appearance: He is not diaphoretic. HENT: Head: Normocephalic. Jaw: No trismus, tenderness, swelling or pain on movement. Nose: Congestion present. Mouth/Throat: Mouth: Mucous membranes are moist. Pharynx: Oropharynx is clear. Uvula midline. No pharyngeal swelling, oropharyngeal exudate, posterior oropharyngeal erythema or uvula swelling. Eyes: Conjunctiva/sclera: Conjunctivae normal. Pupils: Pupils are equal, round, and reactive to light. Cardiovascular: Rate and Rhythm: Normal rate and regular rhythm. Heart sounds: Normal heart sounds. Pulmonary: Effort: Pulmonary effort is normal. No tachypnea, accessory muscle usage or respiratory distress. Breath sounds: Normal breath sounds. No stridor. No wheezing, rhonchi or rales. Abdominal: General: There is no distension. Palpations: Abdomen is soft. Tenderness: There is no abdominal tenderness. There is no guarding or rebound. Musculoskeletal: Cervical back: Normal range of motion and neck supple. No edema, erythema, rigidity or tenderness. No pain with movement. Normal range of motion. Lymphadenopathy: Cervical: No cervical adenopathy. Skin: General: Skin is warm and dry. Neurological: Mental Status: He is alert and oriented to person, place, and time. ASSESSMENT/PLAN: 1. Viral illness - ICD9: 079.99, ICD10: B34.9 Diagnosed with viral illness. No evidence of bacterial infection. Patient was educated on supportive therapies. Patient will follow up with primary care provider as needed. Patient was instructed to immediately proceed to emergency room for any new, worsening, or symptoms lasting longer than anticipated. The patient's clinical presentation is otherwise unremarkable at this time. Based on exam and clinical finding, the patient is stable for discharge. Plan of care was discussed with patient. Patient verbalizes understanding and agrees to plan of care. This note was generated using [employer] software. It may contain errors in wording, punctuation, or spelling. Lul Brown APRN.[facility] 04-26-2024 History of Presen t illness Narrative Subjective HPI Nontoxic-appearing male presents urgent care chief complaint flu like symptoms. Duration of symptoms 2 days. 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 No OTC medications. No known sick contacts. Does work in public. Denies any fever productive cough chest pain shortness of breath pleuritic pain hemoptysis nausea vomiting abdominal pain change in bowel or bladder habits. Past medical history prescription medication use and allergies reviewed. .Patient presents with: Cough: Headache, sore throat, body aches x 2 days PAST MEDICAL HISTORY No date: ADHD (attention deficit hyperactivity disorder) Comment: 12 y.o. 04/2021: COVID-19 No date: Nasal fracture Comment: 3 y.o No date: Otitis media in diseases classified elsewhere, bilateral Comment: 7 y.o. PAST SURGICAL HISTORY 2006: W EAR TUBE Comment: bilateral years ALLERGIES Patient has no known allergies. MEDICATIONS buPROPion XL (WELLBUTRIN XL) 150 mg 24 hr tablet Take 1 tablet by mouth once daily. miconazole (LOTRIMIN AF) 2 % powder Apply 1 application to affected area once daily. (Patient not taking: Reported on 02/29/2024) ibuprofen (ADVIL) 200 mg tablet Take 200 mg by mouth every 6 hours as needed. (Patient not taking: Reported on 01/29/2024) FAMILY HISTORY Problem Relation Age of Onset Diabetes Maternal Grandmother Coronary Artery Disease Maternal Grandfather ND Coronary Artery Disease Paternal Grandfather ND Breast Cancer Other Social History Tobacco Use Smoking status: Every Day Current packs/day: 1.00 Average packs/day: 1 pack/day for 8.0 years (8.0 ttl pk-yrs) Types: Cigarettes Start date: 2016 Smokeless tobacco: Never Vaping Use Vaping status: Never Used Substance Use Topics Alcohol use: Yes Comment: 12 pack every other weekend Drug use: Never BP 129/89 Pulse 85 Temp 36.9 C (98.5 F) Resp 20 Wt 78 kg (171 lb 15.3 oz) SpO2 97% Review of Systems Constitutional: Positive for chills and malaise/fatigue. Negative for fever. HENT: Positive for congestion and sore throat. Negative for ear discharge, ear pain and sinus pain. Eyes: Negative for blurred vision, pain, discharge and redness. Respiratory: Positive for cough. Negative for hemoptysis, sputum production, shortness of breath, wheezing and stridor. Cardiovascular: Negative for chest pain. Gastrointestinal: Negative for abdominal pain, diarrhea, nausea and vomiting. Musculoskeletal: Positive for myalgias. Skin: Negative for itching and rash. Neurological: Positive for headaches. Negative for dizziness. Objective Physical Exam Constitutional: General: He is not in acute distress. Appearance: He is not diaphoretic. HENT: Head: Normocephalic. Jaw: No trismus, tenderness, swelling or pain on movement. Nose: Congestion present. Mouth/Throat: Mouth: Mucous membranes are moist. Pharynx: Oropharynx is clear. Uvula midline. No pharyngeal swelling, oropharyngeal exudate, posterior oropharyngeal erythema or uvula swelling. Eyes: Conjunctiva/sclera: Conjunctivae normal. Pupils: Pupils are equal, round, and reactive to light. Cardiovascular: Rate and Rhythm: Normal rate and regular rhythm. Heart sounds: Normal heart sounds. Pulmonary: Effort: Pulmonary effort is normal. No tachypnea, accessory muscle usage or respiratory distress. Breath sounds: Normal breath sounds. No stridor. No wheezing, rhonchi or rales. Abdominal: General: There is no distension. Palpations: Abdomen is soft. Tenderness: There is no abdominal tenderness. There is no guarding or rebound. Musculoskeletal: Cervical back: Normal range of motion and neck supple. No edema, erythema, rigidity or tenderness. No pain with movement. Normal range of motion. Lymphadenopathy: Cervical: No cervical adenopathy. Skin: General: Skin is warm and dry. Neurological: Mental Status: He is alert and oriented to person, place, and time. ASSESSMENT/PLAN: 1. Viral illness - ICD9: 079.99, ICD10: B34.9 Diagnosed with viral illness. No evidence of bacterial infection. Patient was educated on supportive therapies. Patient will follow up with primary care provider as needed. Patient was instructed to immediately proceed to emergency room for any new, worsening, or symptoms lasting longer than anticipated. The patient's clinical presentation is otherwise unremarkable at this time. Based on exam and clinical finding, the patient is stable for discharge. Plan of care was discussed with patient. Patient verbalizes understanding and agrees to plan of care. This note was generated using [employer] software. It may contain errors in wording, punctuation, or spelling. Lul Brown APRN.BENNY documented in this encounter [facility] 03-18-2024 Note HNO ID: [id number] Author: LAVERNE ZAMBRANO APRN.BENNY Service: ? Author Type: Nurse Practitioner Type: Progress Notes Filed: 03/18/2024 14:15 Note Text: Subjective HPI HPI Jessica Barr is a 18 year old male who presents today for CC of st, cough. This started 2 months ago. Has tried otc medication for relief. Symptoms are worsened by nothing. Risk factors smoker/vapes. Denies concerns for std. .Patient presents with: Sore Throat: Cough x2 mths PAST MEDICAL HISTORY Diagnosis Date ADHD (attention deficit hyperactivity disorder) 12 y.o. COVID-19 04/2021 Nasal fracture 3 y.o Otitis media in diseases classified elsewhere, bilateral 7 y.o. PAST SURGICAL HISTORY Procedure Laterality Date W EAR TUBE 2005 bilateral years ALLERGIES Patient has no known allergies. MEDICATIONS buPROPion XL (WELLBUTRIN XL) 150 mg 24 hr tablet Take 1 tablet by mouth once daily. miconazole (LOTRIMIN AF) 2 % powder Apply 1 application to affected area once daily. (Patient not taking: Reported on 02/29/2024) ibuprofen (ADVIL) 200 mg tablet Take 200 mg by mouth every 6 hours as needed. (Patient not taking: Reported on 01/29/2024) FAMILY HISTORY Problem Relation Age of Onset Diabetes Maternal Grandmother Coronary Artery Disease Maternal Grandfather ND Coronary Artery Disease Paternal Grandfather ND Breast Cancer Other Social History Tobacco Use Smoking status: Every Day Packs/day: 1.00 Years: 5.00 Additional pack years: 0.00 Total pack years: 5.00 Types: Cigarettes Start date: 2016 Smokeless tobacco: Never Vaping Use Vaping Use: Never used Substance Use Topics Alcohol use: Yes Comment: 12 pack every other weekend Drug use: Never ROS Objective Blood pressure 128/68, pulse 78, temperature 36.2 ?C (97.1 ?F), resp. rate 16, weight 79 kg (174 lb 2.6 oz), SpO2 96%. Physical Exam Constitutional: General: He is not in acute distress. Appearance: He is not toxic-appearing or diaphoretic. HENT: Head: Normocephalic and atraumatic. Mouth/Throat: Lips: [place]. Mouth: Mucous membranes are moist. Pharynx: Uvula midline. Posterior oropharyngeal erythema present. Pulmonary: Effort: Pulmonary effort is normal. No accessory muscle usage or respiratory distress. Lymphadenopathy: Cervical: Cervical adenopathy present. Right cervical: Superficial cervical adenopathy present. Left cervical: Superficial cervical adenopathy present. Neurological: Mental Status: He is alert and oriented to person, place, and time. ASSESSMENT/PLAN: 1. Subacute cough - ICD9: 786.2, ICD10: R05.2 (primary diagnosis) Discussed smoking cessation. F/u with pcp if s/s persist. - XR CHEST 2V FRONTAL/LAT - PREDNISONE 20 MG TABLET 2. Sore throat - ICD9: 462, ICD10: J02.9 - suspect viral - Group A strep molecular testing negative - Discussed supportive care treatment with fluids, rest and analgesia. - The patient should follow up in 3-5 days if symptoms persist or worsen - STREP A MOLECULAR (POC) Laverne Zambrano APRN.[facility] 03-18-2024 History of Presen t illness Narrative Subjective HPI HPI Jessica Barr is a 18 year old male who presents today for CC of st, cough. This started 2 months ago. Has tried otc medication for relief. Symptoms are worsened by nothing. Risk factors smoker/vapes. Denies concerns for std. .Patient presents with: Sore Throat: Cough x2 mths PAST MEDICAL HISTORY Diagnosis Date ADHD (attention deficit hyperactivity disorder) 12 y.o. COVID-19 04/2021 Nasal fracture 3 y.o Otitis media in diseases classified elsewhere, bilateral 7 y.o. PAST SURGICAL HISTORY Procedure Laterality Date W EAR TUBE 2006 bilateral years ALLERGIES Patient has no known allergies. MEDICATIONS buPROPion XL (WELLBUTRIN XL) 150 mg 24 hr tablet Take 1 tablet by mouth once daily. miconazole (LOTRIMIN AF) 2 % powder Apply 1 application to affected area once daily. (Patient not taking: Reported on 02/29/2024) ibuprofen (ADVIL) 200 mg tablet Take 200 mg by mouth every 6 hours as needed. (Patient not taking: Reported on 01/29/2024) FAMILY HISTORY Problem Relation Age of Onset Diabetes Maternal Grandmother Coronary Artery Disease Maternal Grandfather ND Coronary Artery Disease Paternal Grandfather ND Breast Cancer Other Social History Tobacco Use Smoking status: Every Day Packs/day: 1.00 Years: 5.00 Additional pack years: 0.00 Total pack years: 5.00 Types: Cigarettes Start date: 2016 Smokeless tobacco: Never Vaping Use Vaping Use: Never used Substance Use Topics Alcohol use: Yes Comment: 12 pack every other weekend Drug use: Never ROS Objective Blood pressure 128/68, pulse 78, temperature 36.2 C (97.1 F), resp. rate 16, weight 79 kg (174 lb 2.6 oz), SpO2 96%. Physical Exam Constitutional: General: He is not in acute distress. Appearance: He is not toxic-appearing or diaphoretic. HENT: Head: Normocephalic and atraumatic. Mouth/Throat: Lips: [place]. Mouth: Mucous membranes are moist. Pharynx: Uvula midline. Posterior oropharyngeal erythema present. Pulmonary: Effort: Pulmonary effort is normal. No accessory muscle usage or respiratory distress. Lymphadenopathy: Cervical: Cervical adenopathy present. Right cervical: Superficial cervical adenopathy present. Left cervical: Superficial cervical adenopathy present. Neurological: Mental Status: He is alert and oriented to person, place, and time. ASSESSMENT/PLAN: 1. Subacute cough - ICD9: 786.2, ICD10: R05.2 (primary diagnosis) Discussed smoking cessation. F/u with pcp if s/s persist. - XR CHEST 2V FRONTAL/LAT - PREDNISONE 20 MG TABLET 2. Sore throat - ICD9: 462, ICD10: J02.9 - suspect viral - Group A strep molecular testing negative - Discussed supportive care treatment with fluids, rest and analgesia. - The patient should follow up in 3-5 days if symptoms persist or worsen - STREP A MOLECULAR (POC) aLverne Zambrano APRN.BENNY documented in this encounter [facility] 03-18-2024 History of Presen t illness Narrative Radiology Service Progress Note PATIENT NAME: Jessica Barr DATE OF SERVICE: March 18, 2024 TIME: 1:20 PM PATIENT IDENTITY VERIFICATION COMPLETED USING TWO (2) IDENTIFIERS: Name and Date of confirmed by patient verbally. FALL SCREENING: Has the patient had 2 falls in the last year or 1 fall with injury or currently using an Ambulatory Assistive Device (Walker, Cane, Wheelchair, Crutches, etc.)? No PATIENT GENDER DATA: Male PATIENT RELEVANT IMPLANT DATA REVIEWED: Not Applicable PATIENT PRESENTS WITH AN IMPLANTABLE OR ATTACHED TAPPER BIT: No RADIOLOGY DEPARTMENT: General X-ray: Exam(s) Completed: Chest X-Ray PERIPHERAL IV DATA: Not applicable SIGNED BY: RT Mary Ann([place]) March 18, 2024 1:20 PM documented in this encounter [facility] 03-18-2024 Note HNO ID: [id number] Author: JOHN DAVIS RT(R) Service: Radiology Author Type: Technologist Type: Progress Notes Filed: 03/18/2024 13:24 Note Text: Radiology Service Progress Note PATIENT NAME: Jessica Barr DATE OF SERVICE: March 18, 2024 TIME: 1:20 PM PATIENT IDENTITY VERIFICATION COMPLETED USING TWO (2) IDENTIFIERS: Name and Date of confirmed by patient verbally. FALL SCREENING: Has the patient had 2 falls in the last year or 1 fall with injury or currently using an Ambulatory Assistive Device (Walker, Cane, Wheelchair, Crutches, etc.)? No PATIENT GENDER DATA: Male PATIENT RELEVANT IMPLANT DATA REVIEWED: Not Applicable PATIENT PRESENTS WITH AN IMPLANTABLE OR ATTACHED TAPPER BIT: No RADIOLOGY DEPARTMENT: General X-ray: Exam(s) Completed: Chest X-Ray PERIPHERAL IV DATA: Not applicable SIGNED BY: RT Mary Ann([place]) March 18, 2024 1:20 PM [facility] 03-03-2024 Note HNO ID: [id number] Author: PRAKASH ZHAO MD Service: ? Author Type: Physician Type: Progress Notes Filed: 03/03/2024 15:38 Note Text: This note was created using NoteWriter. Subjective Jessica Barr is a 18 year old male. He was interested in medication to quit smoking. He had success with a prescription last year, which sounded like bupropion. Contrary to his previous record which indicated he was a non smoker, he started smoking at age 11, and got up to 1 PPD one year ago. He was never treated here so some other provider prescribed him a once a day tablet that helped him quit in a few weeks. No follow up was done. He was switching jobs and may move to a nearby city. Review of Systems Constitutional: Negative. Respiratory: Negative. Psychiatric/Behavioral: Negative. ACTIVE PROBLEM LIST Tobacco Use Disorder History of Heavy Alcohol Consumption Social History Tobacco Use Smoking status: Every Day Packs/day: 1.00 Years: 5.00 Additional pack years: 0.00 Total pack years: 5.00 Types: Cigarettes Start date: 2016 Smokeless tobacco: Never Vaping Use Vaping Use: Never used Substance Use Topics Alcohol use: Yes Comment: 12 pack every other weekend Drug use: Never Objective BP 122/74 (BP Site: Left Arm, BP Position: Sitting, BP Cuff Size: Large Adult) Pulse 84 Temp 37 ?C (98.6 ?F) (Temporal) Resp 18 Wt 78.5 kg (173 lb) Physical Exam Constitutional: Appearance: Normal appearance. Neurological: Mental Status: He is alert. Psychiatric: Mood and Affect: Mood normal. Behavior: Behavior normal. Depression Screening PHQ-2 Score MAXIMO-2 Total Score 03/03/2024 0 0 Depression screening tool completed and reviewed. Based on score and interview, patient is not at risk for depression. Screening tool discussed with patient, and I recommended no further intervention at this time. Assessment and Plan 1. Tobacco use disorder - ICD9: 305.1, ICD10: F17.200 (primary diagnosis) - Cessation encouraged. - Counseling was given focusing on the harmful effects of this addiction especially given the patient's medical condition(s) which will be worsened because of the chemicals in tobacco. - Counseling was given 15 minutes. - BUPROPION XL 150 MG TAB. Take one(1) tablet daily. Follow up if needed. 2. History of heavy alcohol consumption - ICD9: 305.03, ICD10: Z87.898 - He was counseled on risks of binge consumption. Prakash Zhao MD [facility] 03-03-2024 History of Presen t illness Narrative This note was created using [employer]. Subjective Jessica Barr is a 18 year old male. He was interested in medication to quit smoking. He had success with a prescription last year, which sounded like bupropion. Contrary to his previous record which indicated he was a non smoker, he started smoking at age 11, and got up to 1 PPD one year ago. He was never treated here so some other provider prescribed him a once a day tablet that helped him quit in a few weeks. No follow up was done. He was switching jobs and may move to a nearby city. Review of Systems Constitutional: Negative. Respiratory: Negative. Psychiatric/Behavioral: Negative. ACTIVE PROBLEM LIST Tobacco Use Disorder History of Heavy Alcohol Consumption Social History Tobacco Use Smoking status: Every Day Packs/day: 1.00 Years: 5.00 Additional pack years: 0.00 Total pack years: 5.00 Types: Cigarettes Start date: 2016 Smokeless tobacco: Never Vaping Use Vaping Use: Never used Substance Use Topics Alcohol use: Yes Comment: 12 pack every other weekend Drug use: Never Objective BP 122/74 (BP Site: Left Arm, BP Position: Sitting, BP Cuff Size: Large Adult) Pulse 84 Temp 37 C (98.6 F) (Temporal) Resp 18 Wt 78.5 kg (173 lb) Physical Exam Constitutional: Appearance: Normal appearance. Neurological: Mental Status: He is alert. Psychiatric: Mood and Affect: Mood normal. Behavior: Behavior normal. Depression Screening PHQ-2 Score MAXIMO-2 Total Score 03/03/2024 0 0 Depression screening tool completed and reviewed. Based on score and interview, patient is not at risk for depression. Screening tool discussed with patient, and I recommended no further intervention at this time. Assessment and Plan 1. Tobacco use disorder - ICD9: 305.1, ICD10: F17.200 (primary diagnosis) - Cessation encouraged. - Counseling was given focusing on the harmful effects of this addiction especially given the patient's medical condition(s) which will be worsened because of the chemicals in tobacco. - Counseling was given 15 minutes. - BUPROPION XL 150 MG TAB. Take one(1) tablet daily. Follow up if needed. 2. History of heavy alcohol consumption - ICD9: 305.03, ICD10: Z87.898 - He was counseled on risks of binge consumption. Prakash Zhao MD documented in this encounter [facility] 02-29-2024 Note HNO ID: [id number] Author: MIRIAM WATSON PA-C Service: ? Author Type: Physician Service Inspector Type: Progress Notes Filed: 02/29/2024 12:41 Note Text: This note was created using NoteWriter. Subjective Jessica Barr is a 18 year old male. HPI Patient presents with a chief complaint of sore throat over the past week. He has also had nasal congestion and a cough. No chest pain or shortness of breath. No body aches or chills. No fever. No one around him has been sick. He denies vomiting or diarrhea. He did try some Tylenol last night. Review of Systems Constitutional: Negative. HENT: Positive for congestion, rhinorrhea and sore throat. Negative for ear pain, sinus pressure and sinus pain. Eyes: Negative. Respiratory: Positive for cough. Negative for shortness of breath and wheezing. Cardiovascular: Negative. Gastrointestinal: Negative. All other systems reviewed and are negative. PAST MEDICAL HISTORY Diagnosis Date ADHD (attention deficit hyperactivity disorder) 12 y.o. COVID-19 04/2021 Nasal fracture 3 y.o Otitis media in diseases classified elsewhere, bilateral 7 y.o. Current Outpatient Medications Medication Sig Dispense Refill miconazole (LOTRIMIN AF) 2 % powder Apply 1 application to affected area once daily. (Patient not taking: Reported on 02/29/2024) 85 g 0 ibuprofen (ADVIL) 200 mg tablet Take 200 mg by mouth every 6 hours as needed. (Patient not taking: Reported on 01/29/2024) No current facility-administered medications for this visit. PAST SURGICAL HISTORY Procedure Laterality Date W EAR TUBE 2006 bilateral years FAMILY HISTORY Problem Relation Age of Onset Diabetes Maternal Grandmother Coronary Artery Disease Maternal Grandfather ND Coronary Artery Disease Paternal Grandfather ND Breast Cancer Other Social History Tobacco Use Smoking status: Never Smokeless tobacco: Never Vaping Use Vaping Use: Never used Substance Use Topics Alcohol use: No Drug use: Never Objective BP 122/70 Pulse 88 Temp 36.4 ?C (97.5 ?F) Resp 16 Wt 79.3 kg (174 lb 13.2 oz) SpO2 97% Physical Exam Vitals reviewed. Constitutional: Appearance: Normal appearance. HENT: Head: Normocephalic and atraumatic. Right Ear: Tympanic membrane, ear canal and external ear normal. Left Ear: Tympanic membrane, ear canal and external ear normal. Nose: Congestion present. Mouth/Throat: Mouth: Mucous membranes are moist. Pharynx: Oropharynx is clear. Cardiovascular: Rate and Rhythm: Normal rate and regular rhythm. Heart sounds: Normal heart sounds. Pulmonary: Effort: Pulmonary effort is normal. Breath sounds: Normal breath sounds. Musculoskeletal: Cervical back: Neck supple. Skin: General: Skin is warm and dry. Findings: No rash. Neurological: General: No focal deficit present. Mental Status: He is alert and oriented to person, place, and time. Assessment and Plan ASSESSMENT/PLAN: 1. Viral illness - ICD9: 079.99, ICD10: B34.9 - Discussed viral etiology and rationale for treatment. - Group A strep molecular testing negative - Symptomatic treatment with prn analgesia - Supportive care with fluids and rest - The patient may also use OTC cough and cold meds as needed and warm salt water gargles, throat lozenges and/or OTC throat spray as needed. - Follow up in 3-5 days if symptoms persist or sooner if worsening of symptoms - STREP A MOLECULAR (POC) Miriam Watson PA-C [facility] 02-29-2024 History of Presen t illness Narrative This note was created using [employer]. Subjective Jessica Barr is a 18 year old male. HPI Patient presents with a chief complaint of sore throat over the past week. He has also had nasal congestion and a cough. No chest pain or shortness of breath. No body aches or chills. No fever. No one around him has been sick. He denies vomiting or diarrhea. He did try some Tylenol last night. Review of Systems Constitutional: Negative. HENT: Positive for congestion, rhinorrhea and sore throat. Negative for ear pain, sinus pressure and sinus pain. Eyes: Negative. Respiratory: Positive for cough. Negative for shortness of breath and wheezing. Cardiovascular: Negative. Gastrointestinal: Negative. All other systems reviewed and are negative. PAST MEDICAL HISTORY Diagnosis Date ADHD (attention deficit hyperactivity disorder) 12 y.o. COVID-19 04/2021 Nasal fracture 3 y.o Otitis media in diseases classified elsewhere, bilateral 7 y.o. Current Outpatient Medications Medication Sig Dispense Refill miconazole (LOTRIMIN AF) 2 % powder Apply 1 application to affected area once daily. (Patient not taking: Reported on 02/29/2024) 85 g 0 ibuprofen (ADVIL) 200 mg tablet Take 200 mg by mouth every 6 hours as needed. (Patient not taking: Reported on 01/29/2024) No current facility-administered medications for this visit. PAST SURGICAL HISTORY Procedure Laterality Date W EAR TUBE 2006 bilateral years FAMILY HISTORY Problem Relation Age of Onset Diabetes Maternal Grandmother Coronary Artery Disease Maternal Grandfather ND Coronary Artery Disease Paternal Grandfather ND Breast Cancer Other Social History Tobacco Use Smoking status: Never Smokeless tobacco: Never Vaping Use Vaping Use: Never used Substance Use Topics Alcohol use: No Drug use: Never Objective BP 122/70 Pulse 88 Temp 36.4 C (97.5 F) Resp 16 Wt 79.3 kg (174 lb 13.2 oz) SpO2 97% Physical Exam Vitals reviewed. Constitutional: Appearance: Normal appearance. HENT: Head: Normocephalic and atraumatic. Right Ear: Tympanic membrane, ear canal and external ear normal. Left Ear: Tympanic membrane, ear canal and external ear normal. Nose: Congestion present. Mouth/Throat: Mouth: Mucous membranes are moist. Pharynx: Oropharynx is clear. Cardiovascular: Rate and Rhythm: Normal rate and regular rhythm. Heart sounds: Normal heart sounds. Pulmonary: Effort: Pulmonary effort is normal. Breath sounds: Normal breath sounds. Musculoskeletal: Cervical back: Neck supple. Skin: General: Skin is warm and dry. Findings: No rash. Neurological: General: No focal deficit present. Mental Status: He is alert and oriented to person, place, and time. Assessment and Plan ASSESSMENT/PLAN: 1. Viral illness - ICD9: 079.99, ICD10: B34.9 - Discussed viral etiology and rationale for treatment. - Group A strep molecular testing negative - Symptomatic treatment with prn analgesia - Supportive care with fluids and rest - The patient may also use OTC cough and cold meds as needed and warm salt water gargles, throat lozenges and/or OTC throat spray as needed. - Follow up in 3-5 days if symptoms persist or sooner if worsening of symptoms - STREP A MOLECULAR (POC) Miriam Watson PA-C documented in this encounter [facility] 02-29-2024 Instructions Miriam Watson PA-C - 02/29/2024 11:[address] Zhao follow up for smoking cessation Dayquil/Nyquil otc for cold symptoms If not better jean paul chow e sen again documented in this encounter [facility] 01-29-2024 Note HNO ID: [id number] Author: IVONNE COOPER APRN.[employer] DEVELOPER Service: ? Author Type: Nurse Practitioner Type: Progress Notes Filed: 01/29/2024 08:56 Note Text: Subjective Pain (foot) Associated symptoms include itching. Pertinent negatives include no fever. Jesscia Barr is a 18 year old male who presents with bilateral foot pain, itching, and odor for the past 3 months. He states his feet stink even after taking a shower. He denies fever or chills. He used some athlete's foot medication once yesterday and it did not seem to make a difference. Review of Systems Constitutional: Negative for chills and fever. Musculoskeletal: Negative for joint pain and myalgias. Skin: Positive for itching and rash. BP 149/64 Pulse 75 Temp 36.7 ?C (98 ?F) Resp 18 Wt 77.8 kg (171 lb 8.3 oz) SpO2 97% PAST MEDICAL HISTORY Diagnosis Date ADHD (attention deficit hyperactivity disorder) 12 y.o. COVID-19 04/2021 Nasal fracture 3 y.o Otitis media in diseases classified elsewhere, bilateral 7 y.o. PAST SURGICAL HISTORY Procedure Laterality Date W EAR TUBE 2006 bilateral years ALLERGIES Patient has no known allergies. MEDICATIONS terbinafine HCl (LAMISIL) 1 % cream Apply to affected area daily at bedtime. miconazole (LOTRIMIN AF) 2 % powder Apply 1 application to affected area once daily. ibuprofen (ADVIL) 200 mg tablet Take 200 mg by mouth every 6 hours as needed. (Patient not taking: Reported on 01/29/2024) FAMILY HISTORY Problem Relation Age of Onset Diabetes Maternal Grandmother Coronary Artery Disease Maternal Grandfather ND Coronary Artery Disease Paternal Grandfather ND Breast Cancer Other Social History Tobacco Use Smoking status: Never Smokeless tobacco: Never Vaping Use Vaping Use: Never used Substance Use Topics Alcohol use: No Drug use: Never Objective Physical Exam Vitals and nursing note reviewed. Constitutional: General: He is not in acute distress. Appearance: Normal appearance. He is not ill-appearing. Musculoskeletal: General: Tenderness present. No swelling or signs of injury. Feet: Skin: General: Skin is warm and dry. Findings: Erythema and rash present. Neurological: Mental Status: He is alert. ASSESSMENT/PLAN: 1. Tinea pedis of both feet - ICD9: 110.4, ICD10: B35.3 - Treat with medications as prescribed. - Keep area of concern very dry. Ok to use OTC antifungal powder if area is moist - Follow up with PCP if symptoms persist or do not improved after 4-6 weeks of treatment. - TERBINAFINE HCL 1 % TOPICAL CREAM - MICONAZOLE NITRATE 2 % TOPICAL POWDER - Follow-up with your PCP in 3-5 days if symptoms have not improved or sooner if symptoms worsen - Discussed red flags and need for immediate medical evaluation if any occur. - Discussed supportive care treatment with fluids, rest and analgesia. - Discussed expected course of illness Ivonne Cooper APRN.[facility] 01-29-2024 History of Presen t illness Narrative Images from the original note were not included. Subjective Pain (foot) Associated symptoms include itching. Pertinent negatives include no fever. Jessica Barr is a 18 year old male who presents with bilateral foot pain, itching, and odor for the past 3 months. He states his feet stink even after taking a shower. He denies fever or chills. He used some athlete's foot medication once yesterday and it did not seem to make a difference. Review of Systems Constitutional: Negative for chills and fever. Musculoskeletal: Negative for joint pain and myalgias. Skin: Positive for itching and rash. BP 149/64 Pulse 75 Temp 36.7 C (98 F) Resp 18 Wt 77.8 kg (171 lb 8.3 oz) SpO2 97% PAST MEDICAL HISTORY Diagnosis Date ADHD (attention deficit hyperactivity disorder) 12 y.o. COVID-19 04/2021 Nasal fracture 3 y.o Otitis media in diseases classified elsewhere, bilateral 7 y.o. PAST SURGICAL HISTORY Procedure Laterality Date W EAR TUBE 2006 bilateral years ALLERGIES Patient has no known allergies. MEDICATIONS terbinafine HCl (LAMISIL) 1 % cream Apply to affected area daily at bedtime. miconazole (LOTRIMIN AF) 2 % powder Apply 1 application to affected area once daily. ibuprofen (ADVIL) 200 mg tablet Take 200 mg by mouth every 6 hours as needed. (Patient not taking: Reported on 01/29/2024) FAMILY HISTORY Problem Relation Age of Onset Diabetes Maternal Grandmother Coronary Artery Disease Maternal Grandfather ND Coronary Artery Disease Paternal Grandfather ND Breast Cancer Other Social History Tobacco Use Smoking status: Never Smokeless tobacco: Never Vaping Use Vaping Use: Never used Substance Use Topics Alcohol use: No Drug use: Never Objective Physical Exam Vitals and nursing note reviewed. Constitutional: General: He is not in acute distress. Appearance: Normal appearance. He is not ill-appearing. Musculoskeletal: General: Tenderness present. No swelling or signs of injury. Feet: Skin: General: Skin is warm and dry. Findings: Erythema and rash present. Neurological: Mental Status: He is alert. ASSESSMENT/PLAN: 1. Tinea pedis of both feet - ICD9: 110.4, ICD10: B35.3 - Treat with medications as prescribed. - Keep area of concern very dry. Ok to use OTC antifungal powder if area is moist - Follow up with PCP if symptoms persist or do not improved after 4-6 weeks of treatment. - TERBINAFINE HCL 1 % TOPICAL CREAM - MICONAZOLE NITRATE 2 % TOPICAL POWDER - Follow-up with your PCP in 3-5 days if symptoms have not improved or sooner if symptoms worsen - Discussed red flags and need for immediate medical evaluation if any occur. - Discussed supportive care treatment with fluids, rest and analgesia. - Discussed expected course of illness Ivonne Cooper APRN.BENNY documented in this encounter [facility] 01-29-2024 Instructions Ivonne Cooper APRN.BENNY - 01/29/2024 8:48 AM EDT ASSESSMENT/PLAN: 1. Tinea pedis of both feet - ICD9: 110.4, ICD10: B35.3 - Treat with medications as prescribed. - Keep area of concern very dry. Ok to use OTC antifungal powder if area is moist - Follow up with PCP if symptoms persist or do not improved after 4-6 weeks of treatment. - TERBINAFINE HCL 1 % TOPICAL CREAM - MICONAZOLE NITRATE 2 % TOPICAL POWDER - Follow-up with your PCP in 3-5 days if symptoms have not improved or sooner if symptoms worsen - Discussed red flags and need for immediate medical evaluation if any occur. - Discussed supportive care treatment with fluids, rest and analgesia. - Discussed expected course of illness Ivonne Cooper APRN.CNP TINEA PEDIS (ATHLETESFOOT): Your exam shows you have athlete s foot, a fungus infection that usually starts between the toes. This condition is made worse by heat, moisture, and friction. To treat it you should wash your feet 2-3 times daily, drying well especially between the toes. Wear cotton socks to absorb sweat and change them twice a day if possible. You should allow your feet to be open to the air as much as possible and wear sandals when possible. To treat ahtlete s foot, use ogmu-ndt-tudhuwu medicated foot powder or cream such as Lotrimin or Micatin as directed on the package. Prescription creams or lotions such as Exelderm, Lamisil, Loprox, or Oxistat may be needed. You should continue this treatment for at least a week after all symptoms are gone. Antibiotics are needed sometimes to treat secondary bacterial infection. See your doctor if you are not improved after one week of treatment. documented in this encounter [facility] 03-11-2023 Note Discharge Instructions Thank you for allowing [facility] to assist you with your healthcare needs. The following is important discharge information regarding your hospital visit. Diagnosis from Today's Visit Abdominal pain Diarrhea-bloody What to Do Next Instructions from Your Care Team - Call early tomorrow to schedule appointment and establish care with [facility] No qualifying data available. Post Acute Orders No qualifying data available. You Need to Schedule the Following Appointments Follow Up with [facility] When Within 3-5 days Where: [address] [place] [address]- Allergies NKA Medications Please ask your primary doctor or pharmacist before taking any other medication not listed, including over the counter drugs, herbal medications, vitamins and or supplements as they may interact with your home medications. What How Much When Why Instructions Last Dose New levoFLOXacin (levoFLOXacin 500 mg oral tablet) 1 tab(s) by mouth Every 24 hours Duration: 7 Days Printed Prescription Unchanged albuterol (albuterol MDI (90 mcg/ inh) CFC free inhalation aerosol) 2 puff(s) by inhalation Every 4 hours as needed for as needed for wheezing Bronchitis Unchanged docusate (Colace 100 mg oral capsule) 1 cap by mouth Once a day as needed for for constipation Please take this list to your next doctor s visit. Bring all medications you take, including over the counter medications, herbals and other supplements with you to your doctor s visit. Patients and families are reminded to discard old lists and to update any records with all medication providers or retail pharmacies. Education Materials Diarrhea with Uncertain Cause (Adult) Diarrhea is when stools are loose and watery. This can be caused by: Viral infections Bacterial infections Food poisoning Parasites Irritable bowel syndrome (IBS) Inflammatory bowel diseases such as ulcerative colitis, Crohn's disease, and celiac disease Food intolerance, such as to lactose, the sugar found in milk and milk products Reaction to medicines like antibiotics, laxatives, cancer drugs, and antacids Along with diarrhea, you may also have: Abdominal pain and cramping Nausea and vomiting Loss of bowel control Fever and chills Bloody stools In some cases, antibiotics may help to treat diarrhea. You may have a stool sample test. This is done to see what is causing your diarrhea, and if antibiotics will help treat it. The results of a stool sample test may take up to 2 days. The healthcare provider may not give you antibiotics until he or she has the stool test results. Diarrhea can cause dehydration. This is the loss of too much water and other fluids from the body. When this occurs, body fluid must be replaced. This can be done with oral rehydration solutions. Oral rehydration solutions are available at drugstores and grocery stores without a prescription. Sports drinks are not the best choice if you are very dehydrated. They have too much sugar and not enough electrolytes. Home care Follow all instructions given by your healthcare provider. Rest at home for the next 24 hours, or until you feel better. Avoid caffeine, tobacco, and alcohol. These can make diarrhea, cramping, and pain worse. If taking medicines: Dlgx-ckj-okhtdly nausea and diarrhea medicines are generally OK unless you experience fever or blood stool. Check with your doctor first in those circumstances. You may use acetaminophen or NSAID medicines like ibuprofen or naproxen to reduce pain and fever. Don t use these if you have chronic liver or kidney disease, or ever had a stomach ulcer or gastrointestinal bleeding. Don't use NSAID medicines if you are already taking one for another condition (like arthritis) or are on daily aspirin therapy (such as for heart disease or after a stroke). Talk with your healthcare provider first. If antibiotics were prescribed, be sure you take them until they are finished. Don t stop taking them even when you feel better. Antibiotics must be taken as a full course. To prevent the spread of illness: Remember that washing with soap and water and using alcohol-based block engraver is the best way to prevent the spread of infection. Dry your hands with a single use towel (like a paper towel). Clean the toilet after each use. Wash your hands before eating. Wash your hands before and after preparing food. Keep in mind that people with diarrhea or vomiting should not prepare food for others. Wash your hands after using cutting boards, countertops, and knives that have been in contact with raw foods. Wash and then peel fruits and vegetables. Keep uncooked meats away from cooked and kfboq-su-dvl foods. Use a food thermometer when cooking. Cook poultry to at least 165 F (74 C). Cook ground meat (beef, veal, pork, wang) to at least 160 F (71 C). Cook fresh beef, veal, wang, and pork to at least 145 F (63 C). Don t eat raw or undercooked eggs (poached or jamie side up), poultry, meat, or unpasteurized milk and juices. Food and drinks The main goal while treating vomiting or diarrhea is to prevent dehydration. This is done by taking small amounts of liquids often. Keep in mind that liquids are more important than food right now. Drink only small amounts of liquids at a time. Don t force yourself to eat, especially if you are having cramping, vomiting, or diarrhea. Don t eat large amounts at a time, even if you are hungry. If you eat, avoid fatty, greasy, spicy, or fried foods. Don t eat dairy foods or drink milk if you have diarrhea. These can make diarrhea worse. During the first 24 hours you can try: Oral rehydration solutions. Sports drinks may be used if you are not too dehydrated and are otherwise healthy. Soft drinks without caffeine Allison vianca Water (plain or flavored) Decaf tea or coffee Clear broth, consomm , or bouillon Gelatin, popsicles, or frozen fruit juice bars The second 24 hours, if you are feeling better, you can add: Hot cereal, plain toast, bread, rolls, or crackers Plain noodles, rice, mashed potatoes, chicken noodle soup, or rice soup Unsweetened canned fruit (no pineapple) Bananas As you recover: Limit fat intake to less than 15 grams per day. Don t eat margarine, butter, oils, mayonnaise, sauces, gravies, fried foods, peanut butter, meat, poultry, or fish. Limit fiber. Don t eat raw or cooked vegetables, fresh fruits except bananas, or bran cereals. Limit caffeine and chocolate. Limit dairy. Don t use spices or seasonings except salt. Go back to your normal diet over time, as you feel better and your symptoms improve. If the symptoms come back, go back to a simple diet or clear liquids. Follow-up care Follow up with your healthcare provider, or as advised. If a stool sample was taken or cultures were done, call the healthcare provider for the results as instructed. Call 911 Call 911 if you have any of these symptoms: Trouble breathing Confusion Extreme drowsiness or trouble walking Loss of consciousness Rapid heart rate Chest pain Stiff neck Seizure When to seek medical advice Call your healthcare provider right away if any of these occur: Abdominal pain that gets worse Constant lower right abdominal pain Continued vomiting and inability to keep liquids down Diarrhea more than 5 times a day Blood in vomit or stool Dark urine or no urine for 8 hours, dry mouth and tongue, tiredness, weakness, or dizziness Drowsiness New rash You don t get better in 2 to 3 days Fever of 100.4 F (38 C) or higher, or as directed by your healthcare provider [id number] [employer]. [address] [place] [address], [place] [address]. All rights reserved. This information is not intended as a substitute for professional medical care. Always follow your healthcare professional's instructions. Additional Information VACCINATE! IT SAVES LIVES! Members of the community who have not yet received the COVID-19 vaccine and would like to receive it can visit one of [facility] vaccine clinics. There are many vaccine clinic locations within the [facility]. For locations and available times, please visit [email or web address].[email or web address] [email or web address] It is important to note that some COVID mobile vaccine clinics are held outdoors and may be canceled in rainy or stormy conditions. To learn more about pediatric vaccinations (ages 5-11), we invite you to visit the [facility] webpage. [email or web address]/p [email or web address]-Dkuac-Mjprhapumjd-Freq imhksc-Qruqu-Witdmopfh.html To learn more about the COVID-19 vaccine, we invite you to visit the CDC website for a list of frequently asked questions. https://www.cdc.gov/coronavirus/ 2019-ncov/vaccines/faq.html [facility] Patient Portal Access Instructions: Stay connected with your healthcare team and access your personal medical information anytime with the [facility] Patient Portal. If you would like a full copy of your medical records please contact the [facility] Medical Records Department Thursday through Thursday between 8a.m. and 4:30p.m. Please follow the directions below to access the portal: 1.Access the email account you provided upon registration to the hospital.2.Look for an invitation email from [facility].3.Open the email and access the invitation link: Accept Invitation to [facility].Fill in the required momin to create your account. Sign into [email or web address] with your username and password that you created in the above steps to stay up to date. You can then view a summary of results, a summary of your visits, and the ability to download your summaries to your computer or send the information securely to a physician. Remember that your healthcare information is confidential, so carefully consider who you will allow to register on the [facility] Patient Portal for access to your information. You can also access the [facility] Patient Portal on the [facility]. Simply click on Health Records under Health Data and then click on the [employer] logo. HOW TO SAFELY DISPOSE OF PRESCRIPTION MEDICATIONS Please use one of the following methods to safely dispose of your unused medications. 1.Use a drug disposal kit: the drug disposal pouch allows you to safely discard your old and unused drugs. Ask your nurse to give you one when you are discharged.2.Visit a local take-back location: Many local pharmacies and police departments have programs that collect old and unwanted prescription drugs. Call your local pharmacy or go to http://RIDERS.Cryptopay/5K0Sn8w to find one close to you.3.Make use of household items: Use cat litter or old coffee grounds to dispose medications if other options are not available. Mix your drugs with these household products, seal them in an airtight container and throw it into the garbage. Call [facility]: [phone] to be sure your drugs can be disposed of in this way. Some medicines may require a different approach.4.Never flush your medications down the toilet. IF YOU HAVE BEEN PRESCRIBED AN OPIOIDS FOR PAIN If you have been prescribed an opioid (such as hydrocodone, oxycodone or morphine), it is critical to understand the possible side effects and risks of opioid pain medications. Even when taken as directed, opioids can have several side effects including: Tolerance, meaning you might need to take more of a medication for the same pain relief. Nausea, vomiting and/or constipation. Sleepiness, dizziness, dry mouth, confusion, depression or itching. Physical dependence, meaning you have withdrawal symptoms when a medication is stopped ? this can develop within a few days. KNOW YOUR RESPONSIBILITIES It is important to know exactly how much and how often to take the opioid pain medications you are prescribed. Never take opioids in higher amounts or more often than prescribed. Do not combine opioids with alcohol or other drugs that cause drowsiness, such as benzodiazepines, also known as benzos, including diazepam and alprazolam, muscle relaxants or sleep aids. Never sell or share prescription opioids. This is illegal. Store opioids in a secure place and out of reach of others (including children, family, friends and visitors). The last page(s) of this document has been signed and retained as a CHART COPY Signatures Patient Education Materials Diarrhea, Unknown Cause Medication Leaflets My discharge plan and instructions have been reviewed and explained to me and ITEETEE COLE J understand my current condition and have read and understand these discharge instructions. I have received a written copy of the plan/instructions. If I have questions, I am aware that I should contact my doctor. 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: Date/Time: Relationship to Patient: Witness Name/Signature: Date/Time: [facility] 03-11-2023 Hospital Discharg e instructions Patient Education 03/11/2023 15:26:59 Diarrhea, Unknown Cause Diarrhea with Uncertain Cause (Adult) Diarrhea is when stools are loose and watery. This can be caused by: Viral infections Bacterial infections Food poisoning Parasites Irritable bowel syndrome (IBS) Inflammatory bowel diseases such as ulcerative colitis, Crohn's disease, and celiac disease Food intolerance, such as to lactose, the sugar found in milk and milk products Reaction to medicines like antibiotics, laxatives, cancer drugs, and antacids Along with diarrhea, you may also have: Abdominal pain and cramping Nausea and vomiting Loss of bowel control Fever and chills Bloody stools In some cases, antibiotics may help to treat diarrhea. You may have a stool sample test. This is done to see what is causing your diarrhea, and if antibiotics will help treat it. The results of a stool sample test may take up to 2 days. The healthcare provider may not give you antibiotics until he or she has the stool test results. Diarrhea can cause dehydration. This is the loss of too much water and other fluids from the body. When this occurs, body fluid must be replaced. This can be done with oral rehydration solutions. Oral rehydration solutions are available at drugstores and grocery stores without a prescription. Sports drinks are not the best choice if you are very dehydrated. They have too much sugar and not enough electrolytes. Home care Follow all instructions given by your healthcare provider. Rest at home for the next 24 hours, or until you feel better. Avoid caffeine, tobacco, and alcohol. These can make diarrhea, cramping, and pain worse. If taking medicines: Cdqo-nto-aqjfpmj nausea and diarrhea medicines are generally OK unless you experience fever or blood stool. Check with your doctor first in those circumstances. You may use acetaminophen or NSAID medicines like ibuprofen or naproxen to reduce pain and fever. Don t use these if you have chronic liver or kidney disease, or ever had a stomach ulcer or gastrointestinal bleeding. Don't use NSAID medicines if you are already taking one for another condition (like arthritis) or are on daily aspirin therapy (such as for heart disease or after a stroke). Talk with your healthcare provider first. If antibiotics were prescribed, be sure you take them until they are finished. Don t stop taking them even when you feel better. Antibiotics must be taken as a full course. To prevent the spread of illness: Remember that washing with soap and water and using alcohol-based block engraver is the best way to prevent the spread of infection. Dry your hands with a single use towel (like a paper towel). Clean the toilet after each use. Wash your hands before eating. Wash your hands before and after preparing food. Keep in mind that people with diarrhea or vomiting should not prepare food for others. Wash your hands after using cutting boards, countertops, and knives that have been in contact with raw foods. Wash and then peel fruits and vegetables. Keep uncooked meats away from cooked and gibcz-uv-gyt foods. Use a food thermometer when cooking. Cook poultry to at least 165 F (74 C). Cook ground meat (beef, veal, pork, wang) to at least 160 F (71 C). Cook fresh beef, veal, wang, and pork to at least 145 F (63 C). Don t eat raw or undercooked eggs (poached or jamie side up), poultry, meat, or unpasteurized milk and juices. Food and drinks The main goal while treating vomiting or diarrhea is to prevent dehydration. This is done by taking small amounts of liquids often. Keep in mind that liquids are more important than food right now. Drink only small amounts of liquids at a time. Don t force yourself to eat, especially if you are having cramping, vomiting, or diarrhea. Don t eat large amounts at a time, even if you are hungry. If you eat, avoid fatty, greasy, spicy, or fried foods. Don t eat dairy foods or drink milk if you have diarrhea. These can make diarrhea worse. During the first 24 hours you can try: Oral rehydration solutions. Sports drinks may be used if you are not too dehydrated and are otherwise healthy. Soft drinks without caffeine Allison vianca Water (plain or flavored) Decaf tea or coffee Clear broth, consomm , or bouillon Gelatin, popsicles, or frozen fruit juice bars The second 24 hours, if you are feeling better, you can add: Hot cereal, plain toast, bread, rolls, or crackers Plain noodles, rice, mashed potatoes, chicken noodle soup, or rice soup Unsweetened canned fruit (no pineapple) Bananas As you recover: Limit fat intake to less than 15 grams per day. Don t eat margarine, butter, oils, mayonnaise, sauces, gravies, fried foods, peanut butter, meat, poultry, or fish. Limit fiber. Don t eat raw or cooked vegetables, fresh fruits except bananas, or bran cereals. Limit caffeine and chocolate. Limit dairy. Don t use spices or seasonings except salt. Go back to your normal diet over time, as you feel better and your symptoms improve. If the symptoms come back, go back to a simple diet or clear liquids. Follow-up care Follow up with your healthcare provider, or as advised. If a stool sample was taken or cultures were done, call the healthcare provider for the results as instructed. Call 911 Call 911 if you have any of these symptoms: Trouble breathing Confusion Extreme drowsiness or trouble walking Loss of consciousness Rapid heart rate Chest pain Stiff neck Seizure When to seek medical advice Call your healthcare provider right away if any of these occur: Abdominal pain that gets worse Constant lower right abdominal pain Continued vomiting and inability to keep liquids down Diarrhea more than 5 times a day Blood in vomit or stool Dark urine or no urine for 8 hours, dry mouth and tongue, tiredness, weakness, or dizziness Drowsiness New rash You don t get better in 2 to 3 days Fever of 100.4 F (38 C) or higher, or as directed by your healthcare provider [id number] [employer]. [address] [place] [address], [place] [address]. All rights reserved. This information is not intended as a substitute for professional medical care. Always follow your healthcare professional's instructions. Follow Up Care 03/11/2023 14:21:03 With:[facility] Address: [address] [place] [address]- When:3-5 days [facility] 03-11-2023 Evaluation + Plan note Diagnostic Tests PendingStool Gastrointestinal Panel 03/11/23Fecal Leukocytes 03/11/23Stool Culture 03/11/23 [facility] 12-22-2022 Hospital Discharg e instructions Patient Education 12/22/2022 14:53:41 BRONCHITIS w/ Wheezing (Adult) Bronchitis With Wheezing (Viral Or Bacterial: Adult) Bronchitis is an infection of the air passages. It often occurs during the common cold and is usually caused by a virus. Symptoms include cough with mucus (phlegm) and low-grade fever. If there is a lot of inflammation, air flow is restricted. The air passages may also go into spasm, especially if you are an asthmatic. This causes wheezing and difficulty breathing even in persons who do not have asthma. Bronchitis usually lasts 7-14 days. The wheezing should improve with treatment during the first week. An inhaler is often prescribed to relax the air passages and stop wheezing. Antibiotics will be prescribed if your doctor thinks there is also a secondary bacterial infection. Home Care: If symptoms are severe, rest at home for the first 2-3 days. When resuming activity, don't let yourself become overly tired. Do not smoke and avoid exposure to the smoke of others. You may use acetaminophen (Tylenol) or ibuprofen (Motrin, Advil) to control fever, unless another medicine was prescribed. [NOTE: If you have chronic liver or kidney disease or ever had a stomach ulcer or GI bleeding, talk with your doctor before using these medicines.] (Aspirin should never be used in anyone under 18 years of age who is ill with a fever. It may cause severe liver damage.) Your appetite may be poor so a light diet is fine. Avoid dehydration by drinking 6-8 glasses of fluids per day (water, soft, drinks, juices, tea, soup, etc.). Extra fluids will help loosen secretions in the lungs. Isha-uhr-sayxoxl cough medicines that contain dextromethorphan (such as Robitussin DM) and decongestants (Actifed or Sudafed) may help relieve cough and congestion. [NOTE: Do not use decongestants if you have high blood pressure.] If you were given an inhaler, use it exactly as directed. If you need to use it more often than prescribed, your condition may be worsening. Contact your doctor or this facility. If prescribed, finish all antibiotic medicine, even if you are feeling better after only a few days. Follow Up With Your Doctor Or As Directed If You Are Not Starting To Feel Better After Three Days. [NOTE: If you are age 65 or older, or if you have chronic asthma or COPD, we recommend a pneumococcal vaccination every five years and a yearly influenza vaccination (flu shot) every . Ask your doctor about this. If you had an x-ray or EKG (electrocardiogram), it will be reviewed by a specialist. You will be notified of any new findings that may affect your care.] Get Prompt Medical Attention If Any Of The Following Occur: Increased wheezing, shortness of breath or pain with breathing Fever of 100.4 F (38 C) oral or higher, not better with fever medication Coughing up blood or increasing amounts of colored sputum Weakness, drowsiness, headache, facial pain, ear pain or a stiff neck Lower leg swelling, tenderness, redness or pain [id number] [employer]. [address] [place] [id number]. All rights reserved. This information is not intended as a substitute for professional medical care. Always follow your healthcare professional's instructions. 12/22/2022 13:17:06 BRONCHITIS w/ Wheezing (Adult) Bronchitis With Wheezing (Viral Or Bacterial: Adult) Bronchitis is an infection of the air passages. It often occurs during the common cold and is usually caused by a virus. Symptoms include cough with mucus (phlegm) and low-grade fever. If there is a lot of inflammation, air flow is restricted. The air passages may also go into spasm, especially if you are an asthmatic. This causes wheezing and difficulty breathing even in persons who do not have asthma. Bronchitis usually lasts 7-14 days. The wheezing should improve with treatment during the first week. An inhaler is often prescribed to relax the air passages and stop wheezing. Antibiotics will be prescribed if your doctor thinks there is also a secondary bacterial infection. Home Care: If symptoms are severe, rest at home for the first 2-3 days. When resuming activity, don't let yourself become overly tired. Do not smoke and avoid exposure to the smoke of others. You may use acetaminophen (Tylenol) or ibuprofen (Motrin, Advil) to control fever, unless another medicine was prescribed. [NOTE: If you have chronic liver or kidney disease or ever had a stomach ulcer or GI bleeding, talk with your doctor before using these medicines.] (Aspirin should never be used in anyone under 18 years of age who is ill with a fever. It may cause severe liver damage.) Your appetite may be poor so a light diet is fine. Avoid dehydration by drinking 6-8 glasses of fluids per day (water, soft, drinks, juices, tea, soup, etc.). Extra fluids will help loosen secretions in the lungs. Fvny-elj-qnisxsj cough medicines that contain dextromethorphan (such as Robitussin DM) and decongestants (Actifed or Sudafed) may help relieve cough and congestion. [NOTE: Do not use decongestants if you have high blood pressure.] If you were given an inhaler, use it exactly as directed. If you need to use it more often than prescribed, your condition may be worsening. Contact your doctor or this facility. If prescribed, finish all antibiotic medicine, even if you are feeling better after only a few days. Follow Up With Your Doctor Or As Directed If You Are Not Starting To Feel Better After Three Days. [NOTE: If you are age 65 or older, or if you have chronic asthma or COPD, we recommend a pneumococcal vaccination every five years and a yearly influenza vaccination (flu shot) every . Ask your doctor about this. If you had an x-ray or EKG (electrocardiogram), it will be reviewed by a specialist. You will be notified of any new findings that may affect your care.] Get Prompt Medical Attention If Any Of The Following Occur: Increased wheezing, shortness of breath or pain with breathing Fever of 100.4 F (38 C) oral or higher, not better with fever medication Coughing up blood or increasing amounts of colored sputum Weakness, drowsiness, headache, facial pain, ear pain or a stiff neck Lower leg swelling, tenderness, redness or pain [id number] [employer] [address] [place] [address]. All rights reserved. This information is not intended as a substitute for professional medical care. Always follow your healthcare professional's instructions. Follow Up Care 12/22/2022 13:04:26 With:Go to emergency room if symptoms worsen Address:Unknown When:2-4 days With:Call Physician Referral Address:Unknown When:2-4 days [facility] 12-22-2022 Note Discharge Instructions Thank you for allowing [facility] to assist you with your healthcare needs. The following is important discharge information regarding your hospital visit. Diagnosis from Today's Visit Bronchitis Cough What to Do Next Instructions from Your Care Team Use inhaler as needed for shortness of breath/wheezing. Use Tessalon Perles as needed for cough. Take steroids as prescribed. Follow-up with your primary care provider. Follow-up results of COVID, RSV, and flu testing. Return the emergency department if you experience worsening symptoms or any other care concern. No qualifying data available. Post Acute Orders No qualifying data available. You Need to Schedule the Following Appointments Follow Up with Go to emergency room if symptoms worsen When Within 2-4 days Follow Up with Call Physician Referral When Within 2-4 days Allergies NKA Medications Please ask your primary doctor or pharmacist before taking any other medication not listed, including over the counter drugs, herbal medications, vitamins and or supplements as they may interact with your home medications. What How Much When Why Instructions Last Dose New albuterol (albuterol MDI (90 mcg/ inh) CFC free inhalation aerosol) 2 puff(s) by inhalation Every 4 hours as needed for as needed for wheezing Bronchitis Printed Prescription New benzonatate (Tessalon Perles 100 mg oral capsule) 1 cap by mouth Three (3) times a day as needed for as needed for cough Bronchitis Duration: 7 Days Printed Prescription New predniSONE (predniSONE 50 mg oral tablet) 1 tab(s) by mouth Once a day with a meal Bronchitis Duration: 5 Days Printed Prescription Unchanged docusate (Colace 100 mg oral capsule) 1 cap by mouth Once a day as needed for for constipation Please take this list to your next doctor s visit. Bring all medications you take, including over the counter medications, herbals and other supplements with you to your doctor s visit. Patients and families are reminded to discard old lists and to update any records with all medication providers or retail pharmacies. Medication Leaflets albuterol inhalation (al BYOO ter all) ProAir HFA, ProAir RespiClick, Proventil HFA, Ventolin HFA What is the most important information I should know about albuterol inhalation? Follow all directions on your medicine label and package. Tell each of your healthcare providers about all your medical conditions, allergies, and all medicines you use. What is albuterol inhalation? Albuterol inhalation is a bronchodilator that is used to treat or prevent bronchospasm in people with reversible obstructive airway disease. Albuterol is also used to prevent exercise-induced bronchospasm. Albuterol inhalation is for use in adults and children at least 4 years old. Albuterol inhalation may also be used for purposes not listed in this medication guide. What should I discuss with my healthcare provider before using albuterol inhalation? You should not use this medicine if you are allergic to albuterol. You should not use ProAir RespiClick if you are allergic to milk proteins. Tell your doctor if you have ever had: heart disease, high blood pressure; a thyroid disorder; seizures; diabetes; or low levels of potassium in your blood. Tell your doctor if you are or plan to become . It is not known whether albuterol will harm an unborn baby. However, having uncontrolled asthma during may increase the risk of premature , low weight, or eclampsia (dangerously high blood pressure that can lead to medical problems in both mother and baby). The benefit of preventing bronchospasm may outweigh any risks to the baby. If you are , your name may be listed on a registry to track the effects of albuterol on the baby. It may not be safe to breastfeed while using this medicine. Ask your doctor about any risk. How should I use albuterol inhalation? Follow all directions on your prescription label and read all medication guides. Use the medicine exactly as directed. Do not allow a young child to use albuterol inhalation without help from an adult. To prevent exercise-induced bronchospasm, use this medicine 15 to 30 minutes before you exercise. The effects of albuterol inhalation should last about 4 to 6 hours. Seek medical attention if your breathing problems get worse quickly, or if you think your asthma medications are not working as well. Read and carefully follow any Instructions for Use provided with your medicine. Ask your doctor or pharmacist if you do not understand these instructions. ProAir HFA, Proventil HFA, or Ventolin HFA must be shaken before each use. You do not need to shake ProAir RespiClick before using. Do not try to clean or take apart the ProAir RespiClick inhaler device. Always use the new inhaler device provided with your refill. Do not float a medicine canister in water to see if it is empty. Your dose needs may change due to surgery, illness, stress, or a recent asthma attack. Do not change your dose or dosing schedule without your doctor's advice. Store at room temperature away from moisture, heat, or cold temperatures. Keep the cover on your ProAir RespiClick inhaler when not in use. Store Proventil or Ventolin with the mouthpiece down. Keep the inhaler canister away from open flame or high heat. The canister may explode if it gets too hot. Do not puncture or burn an empty inhaler canister. What happens if I miss a dose? Use the medicine as soon as you can, but skip the missed dose if it is almost time for your next dose. Do not use two doses at one time. Get your prescription refilled before you run out of medicine completely. What happens if I overdose? Seek emergency medical attention or call the Poison Help line at . An overdose of albuterol can be fatal. Overdose symptoms may include dry mouth, tremors, chest pain, fast heartbeats, nausea, general ill feeling, seizure, feeling light-headed or fainting. What should I avoid while using albuterol inhalation? Rinse with water if this medicine gets in your eyes. What are the possible side effects of albuterol inhalation? Get emergency medical help if you have signs of an allergic reaction: hives; difficult breathing; swelling of your face, lips, tongue, or throat. Call your doctor at once if you have: wheezing, choking, or other breathing problems after using this medicine; chest pain, fast heart rate, pounding heartbeats or fluttering in your chest; severe headache, pounding in your neck or ears; pain or burning when you urinate; high blood sugar--increased thirst, increased urination, dry mouth, fruity breath odor; or low potassium--leg cramps, constipation, irregular heartbeats, increased thirst or urination, numbness or tingling, muscle weakness or limp feeling. Common side effects may include: chest pain, fast or pounding heartbeats; upset stomach, vomiting; painful urination; dizziness; feeling shaky or nervous; headache, back pain, body aches; or cough, sore throat, sinus pain, runny or stuffy nose. This is not a complete list of side effects and others may occur. Call your doctor for medical advice about side effects. You may report side effects to FDA at 6-573-ADS-3782. What other drugs will affect albuterol inhalation? Tell your doctor about all your other medicines, especially: any other inhaled medicines or bronchodilators; digoxin; a diuretic or 'water pill'; an antidepressant--amitriptyline, desipramine, imipramine, doxepin, nortriptyline, and others; a beta jacey--atenolol, carvedilol, labetalol, metoprolol, propranolol, sotalol, and others; or an MAO inhibitor--isocarboxazid, linezolid, methylene blue injection, phenelzine, rasagiline, selegiline, tranylcypromine, and others. This list is not complete. Other drugs may affect albuterol inhalation, including prescription and tgob-vqd-yclapyn medicines, vitamins, and herbal products. Not all possible drug interactions are listed here. Where can I get more information? Your pharmacist can provide more information about albuterol inhalation. Remember, keep this and all other medicines out of the reach of children, never share your medicines with others, and use this medication only for the indication prescribed. Every effort has been made to ensure that the information provided by [employer]. ('[employer]') is accurate, up-to-date, and complete, but no guarantee is made to that effect. Drug information contained herein may be time sensitive. [employer] information has been compiled for use by healthcare practitioners and consumers in the [place] and therefore [employer] does not warrant that uses outside of the [place] are appropriate, unless specifically indicated otherwise. [employer] drug information does not endorse drugs, diagnose patients or recommend therapy. [employer] drug information is an informational resource designed to assist licensed healthcare practitioners in caring for their patients and/or to serve consumers viewing this service as a supplement to, and not a substitute for, the expertise, skill, knowledge and judgment of healthcare practitioners. The absence of a warning for a given drug or drug combination in no way should be construed to indicate that the drug or drug combination is safe, effective or appropriate for any given patient. [employer] does not assume any responsibility for any aspect of healthcare administered with the aid of information [employer] provides. The information contained herein is not intended to cover all possible uses, directions, precautions, warnings, drug interactions, allergic reactions, or adverse effects. If you have questions about the drugs you are taking, check with your doctor, nurse or pharmacist. Copyright 5159-1871 [employer]. Version: 10.. Revision Date: 07/25/2020. prednisone (PRED bert aguilarchris Matteo What is the most important information I should know about prednisone? You should not use prednisone if you have a fungal infection anywhere in your body. You should not stop using prednisone suddenly. Follow your doctor's instructions about tapering your dose. What is prednisone? Prednisone is a steroid that reduces inflammation in the body, and also suppresses your immune system. Prednisone is used to treat many different conditions such as hormonal disorders, skin diseases, arthritis, lupus, psoriasis, allergic conditions, ulcerative colitis, Crohn's disease, eye diseases, lung diseases, asthma, tuberculosis, blood cell disorders, kidney disorders, leukemia, lymphoma, multiple sclerosis, organ transplant rejection, swelling from a brain tumor or injury. Prednisone may also be used for purposes not listed in this medication guide. What should I discuss with my healthcare provider before taking prednisone? You should not use prednisone if you are allergic to it, or if you have a fungal infection anywhere in your body. Steroid medication can weaken your immune system, making it easier for you to get an infection or worsening an infection you already have. Tell your doctor about any illness or infection you've had within the past several weeks. Tell your doctor if you have ever had: heart problems, high blood pressure, or a heart attack; glaucoma or cataracts; herpes infection of the eyes; past or present tuberculosis; a parasite infection that causes diarrhea (such as threadworms); any illness that causes diarrhea; underactive thyroid; diabetes; a stomach ulcer, diverticulitis; a colostomy or ileostomy; osteoporosis or low bone mineral density (steroid medication can increase your risk of bone loss); low levels of calcium or potassium in your blood; cirrhosis or other liver disease; mental illness or psychosis; or a muscle disorder such as myasthenia gravis. Long-term use of steroids may lead to bone loss (osteoporosis), especially if you smoke or drink alcohol, if you do not exercise, or if you do not get enough vitamin D or calcium in your diet. It is not known whether this medicine will harm an unborn baby. Tell your doctor if you are or plan to become . You should not breastfeed while using prednisone. How should I take prednisone? Follow all directions on your prescription label and read all medication guides or instruction sheets. Your doctor may occasionally change your dose. Use the medicine exactly as directed. Prednisone is taken daily or every other day, depending on the condition being treated. You may need to take the medicine at a certain time of day. Follow your doctor's instructions about when and how often to take this medicine. Take with food if prednisone upsets your stomach. Measure liquid medicine carefully. Use the dosing syringe provided, or use a medicine dose-measuring device (not a kitchen spoon). Swallow the delayed-release tablet whole and do not crush, chew, or break it. Prednisone can weaken (suppress) your immune system, and you may get an infection more easily. Call your doctor if you have signs of infection (fever, weakness, cold or flu symptoms, skin sores, diarrhea, frequent or recurring illness). If you have major surgery or a severe injury or infection, your prednisone dose needs may change. Make sure any doctor caring for you knows you are using this medicine. If you use this medicine long-term, you may need medical tests and vision exams. In case of emergency, wear or carry medical identification to let others know you use a steroid. You should not stop using prednisone suddenly. Follow your doctor's instructions about tapering your dose. Store at room temperature away from moisture, heat, and light. What happens if I miss a dose? Take the medicine as soon as you can, but skip the missed dose if it is almost time for your next dose. Do not take two doses at one time. What happens if I overdose? Seek emergency medical attention or call the Poison Help line at . High doses or long-term use of prednisone can lead to thinning skin, easy bruising, changes in body fat (especially in your face, neck, back, and waist), increased acne or facial hair, menstrual problems, impotence, or loss of interest in sex. What should I avoid while taking prednisone? Do not receive a 'live' vaccine while using prednisone. The vaccine may not work as well and may not fully protect you from disease. Live vaccines include measles, mumps, rubella (MMR), polio, rotavirus, typhoid, yellow fever, varicella (chickenpox), zoster (shingles), and nasal flu (influenza) vaccine. Avoid being near people who are sick or have infections. Call your doctor for preventive treatment if you are exposed to chickenpox or measles. These conditions can be serious or even fatal in people who are using steroid medicine. Avoid drinking alcohol. What are the possible side effects of prednisone? Get emergency medical help if you have signs of an allergic reaction: hives; difficult breathing; swelling of your face, lips, tongue, or throat. Call your doctor at once if you have: muscle pain or weakness; blurred vision, tunnel vision, eye pain, or seeing halos around lights; severe depression, changes in personality, unusual thoughts or behavior; bloody or tarry stools, coughing up blood or vomit that looks like coffee grounds; swelling, rapid weight gain, feeling short of breath; irregular heartbeats; severe headache, pounding in your neck or ears; decreased adrenal gland hormones--muscle weakness, tiredness, diarrhea, nausea, menstrual changes, skin discoloration, craving salty foods, and feeling light-headed; or low potassium level--leg cramps, constipation, irregular heartbeats, fluttering in your chest, increased thirst or urination, numbness or tingling, muscle weakness or limp feeling. Prednisone can affect growth in children. Tell your doctor if your child is not growing at a normal rate while using this medicine. Common side effects may include: weight gain (especially in your face or your upper back and torso); increased appetite; mood changes, trouble sleeping; changes in your menstrual periods; problems with memory or thought; muscle or joint pain; weakness; headache, dizziness, spinning sensation; nausea, bloating, loss of appetite; slow wound healing; or acne, increased sweating, thinning skin, bruising, pinpoint spots under your skin. This is not a complete list of side effects and others may occur. Call your doctor for medical advice about side effects. You may report side effects to FDA at 1-735-ZHW-4131. What other drugs will affect prednisone? Sometimes it is not safe to use certain medications at the same time. Some drugs can affect your blood levels of other drugs you take, which may increase side effects or make the medications less effective. Tell your doctor about all your current medicines. Many drugs can affect prednisone, especially: bupropion; cyclosporine; digoxin; ketoconazole; an antibiotic; control pills or hormone replacement therapy; a diuretic or 'water pill'; insulin or oral diabetes medicine; a blood thinner--warfarin, Coumadin, Jantoven; or NSAIDs (nonsteroidal anti-inflammatory drugs)--aspirin, ibuprofen (Advil, Motrin), naproxen (Aleve), celecoxib, diclofenac, indomethacin, meloxicam, and others. This list is not complete and many other drugs may affect prednisone. This includes prescription and eeys-txr-nlmgvha medicines, vitamins, and herbal products. Not all possible drug interactions are listed here. Where can I get more information? Your pharmacist can provide more information about prednisone. Remember, keep this and all other medicines out of the reach of children, never share your medicines with others, and use this medication only for the indication prescribed. Every effort has been made to ensure that the information provided by [employer]. [employer]') is accurate, up-to-date, and complete, but no guarantee is made to that effect. Drug information contained herein may be time sensitive. [employer] information has been compiled for use by healthcare practitioners and consumers in the [place] and therefore [employer] does not warrant that uses outside of the [place] are appropriate, unless specifically indicated otherwise. [employer] drug information does not endorse drugs, diagnose patients or recommend therapy. [employer] drug information is an informational resource designed to assist licensed healthcare practitioners in caring for their patients and/or to serve consumers viewing this service as a supplement to, and not a substitute for, the expertise, skill, knowledge and judgment of healthcare practitioners. The absence of a warning for a given drug or drug combination in no way should be construed to indicate that the drug or drug combination is safe, effective or appropriate for any given patient. [facility] does not assume any responsibility for any aspect of healthcare administered with the aid of information [facility] provides. The information contained herein is not intended to cover all possible uses, directions, precautions, warnings, drug interactions, allergic reactions, or adverse effects. If you have questions about the drugs you are taking, check with your doctor, nurse or pharmacist. Copyright 5265-1890 [facility]. Version: 10. Revision Date: 12/02/2018. benzonatate (jania pitts) [place] What is the most important information I should know about benzonatate? Never suck or chew on a benzonatate capsule. Swallow the pill whole. Sucking or chewing the capsule may cause serious side effects. Benzonatate is not approved for use by anyone younger than 10 years old. An overdose of benzonatate can be fatal to a young child. What is benzonatate? Benzonatate is used to relieve coughing. Benzonatate is a non-narcotic cough medicine that numbs the throat and lungs, making the cough reflex less active. Benzonatate may also be used for purposes not listed in this medication guide. What should I discuss with my healthcare provider before taking benzonatate? You should not use this medicine if you are allergic to benzonatate or topical numbing medicines such as tetracaine or procaine (found in some insect bite and sunburn creams). Tell your doctor if you are or . Benzonatate is not approved for use by anyone younger than 10 years old. An overdose of benzonatate can be fatal, especially to a young child who has accidentally swallowed the medicine. How should I take benzonatate? Follow all directions on your prescription label and read all medication guides or instruction sheets. Use the medicine exactly as directed. Never suck or chew on a benzonatate capsule. Swallow the pill whole. Sucking or chewing the capsule may cause serious side effects. Store at room temperature away from moisture, heat, and light. What happens if I miss a dose? Skip the missed dose and use your next dose at the regular time. Do not use two doses at one time. What happens if I overdose? Seek emergency medical attention or call the Poison Help line at . An overdose of benzonatate can be fatal, especially to a child. Accidental has occurred in children under 10 years old. Overdose symptoms may include tremors, feeling restless, seizure (convulsions), slow heart rate, weak pulse, fainting, and slow breathing (breathing may stop). What should I avoid while taking benzonatate? Avoid eating or drinking anything while you feel numbness or tingling in your mouth or throat. What are the possible side effects of benzonatate? Stop taking this medicine and get emergency medical help if you have signs of an allergic reaction: hives; difficult breathing; swelling of your face, lips, tongue, or throat. Call your doctor at once if you have: severe drowsiness or dizziness; confusion, hallucinations. ongoing numbness or tingling in your mouth, throat, or face; numbness in your chest; a choking feeling; chills; or burning in your eyes. Some of these side effects may result from chewing or sucking on a benzonatate capsule. Common side effects may include: headache, dizziness; nausea, upset stomach; constipation; itching, rash; or stuffy nose. This is not a complete list of side effects and others may occur. Call your doctor for medical advice about side effects. You may report side effects to FDA at 3-676-NVE-5893. What other drugs will affect benzonatate? Using benzonatate with other drugs that make you drowsy can worsen this effect. Ask your doctor before using opioid medication, a sleeping pill, a muscle relaxer, or medicine for anxiety or seizures. Other drugs may affect benzonatate, including prescription and wnti-ags-blddema medicines, vitamins, and herbal products. Tell your doctor about all your current medicines and any medicine you start or stop using. Where can I get more information? Your pharmacist can provide more information about benzonatate. Remember, keep this and all other medicines out of the reach of children, never share your medicines with others, and use this medication only for the indication prescribed. Every effort has been made to ensure that the information provided by [employer]. ('[employer]') is accurate, up-to-date, and complete, but no guarantee is made to that effect. Drug information contained herein may be time sensitive. [employer] information has been compiled for use by healthcare practitioners and consumers in the [place] and therefore [employer] does not warrant that uses outside of the [place] are appropriate, unless specifically indicated otherwise. [employer] drug information does not endorse drugs, diagnose patients or recommend therapy. [employer] drug information is an informational resource designed to assist licensed healthcare practitioners in caring for their patients and/or to serve consumers viewing this service as a supplement to, and not a substitute for, the expertise, skill, knowledge and judgment of healthcare practitioners. The absence of a warning for a given drug or drug combination in no way should be construed to indicate that the drug or drug combination is safe, effective or appropriate for any given patient. [employer] does not assume any responsibility for any aspect of healthcare administered with the aid of information [employer] provides. The information contained herein is not intended to cover all possible uses, directions, precautions, warnings, drug interactions, allergic reactions, or adverse effects. If you have questions about the drugs you are taking, check with your doctor, nurse or pharmacist. Copyright 1826-6456 [employer]. Version: 9.01. Revision Date: 06/16/2019. Education Materials Bronchitis With Wheezing (Viral Or Bacterial: Adult) Bronchitis is an infection of the air passages. It often occurs during the common cold and is usually caused by a virus. Symptoms include cough with mucus (phlegm) and low-grade fever. If there is a lot of inflammation, air flow is restricted. The air passages may also go into spasm, especially if you are an asthmatic. This causes wheezing and difficulty breathing even in persons who do not have asthma. Bronchitis usually lasts 7-14 days. The wheezing should improve with treatment during the first week. An inhaler is often prescribed to relax the air passages and stop wheezing. Antibiotics will be prescribed if your doctor thinks there is also a secondary bacterial infection. Home Care: If symptoms are severe, rest at home for the first 2-3 days. When resuming activity, don't let yourself become overly tired. Do not smoke and avoid exposure to the smoke of others. You may use acetaminophen (Tylenol) or ibuprofen (Motrin, Advil) to control fever, unless another medicine was prescribed. [NOTE: If you have chronic liver or kidney disease or ever had a stomach ulcer or GI bleeding, talk with your doctor before using these medicines.] (Aspirin should never be used in anyone under 18 years of age who is ill with a fever. It may cause severe liver damage.) Your appetite may be poor so a light diet is fine. Avoid dehydration by drinking 6-8 glasses of fluids per day (water, soft, drinks, juices, tea, soup, etc.). Extra fluids will help loosen secretions in the lungs. Nmrx-pwh-rrhjatv cough medicines that contain dextromethorphan (such as Robitussin DM) and decongestants (Actifed or Sudafed) may help relieve cough and congestion. [NOTE: Do not use decongestants if you have high blood pressure.] If you were given an inhaler, use it exactly as directed. If you need to use it more often than prescribed, your condition may be worsening. Contact your doctor or this facility. If prescribed, finish all antibiotic medicine, even if you are feeling better after only a few days. Follow Up With Your Doctor Or As Directed If You Are Not Starting To Feel Better After Three Days. [NOTE: If you are age 65 or older, or if you have chronic asthma or COPD, we recommend a pneumococcal vaccination every five years and a yearly influenza vaccination (flu shot) every . Ask your doctor about this. If you had an x-ray or EKG (electrocardiogram), it will be reviewed by a specialist. You will be notified of any new findings that may affect your care.] Get Prompt Medical Attention If Any Of The Following Occur: Increased wheezing, shortness of breath or pain with breathing Fever of 100.4 F (38 C) oral or higher, not better with fever medication Coughing up blood or increasing amounts of colored sputum Weakness, drowsiness, headache, facial pain, ear pain or a stiff neck Lower leg swelling, tenderness, redness or pain 4715-6220 [employer]. [address] [place] [address], [place] [address]. All rights reserved. This information is not intended as a substitute for professional medical care. Always follow your healthcare professional's instructions. Bronchitis With Wheezing (Viral Or Bacterial: Adult) Bronchitis is an infection of the air passages. It often occurs during the common cold and is usually caused by a virus. Symptoms include cough with mucus (phlegm) and low-grade fever. If there is a lot of inflammation, air flow is restricted. The air passages may also go into spasm, especially if you are an asthmatic. This causes wheezing and difficulty breathing even in persons who do not have asthma. Bronchitis usually lasts 7-14 days. The wheezing should improve with treatment during the first week. An inhaler is often prescribed to relax the air passages and stop wheezing. Antibiotics will be prescribed if your doctor thinks there is also a secondary bacterial infection. Home Care: If symptoms are severe, rest at home for the first 2-3 days. When resuming activity, don't let yourself become overly tired. Do not smoke and avoid exposure to the smoke of others. You may use acetaminophen (Tylenol) or ibuprofen (Motrin, Advil) to control fever, unless another medicine was prescribed. [NOTE: If you have chronic liver or kidney disease or ever had a stomach ulcer or GI bleeding, talk with your doctor before using these medicines.] (Aspirin should never be used in anyone under 18 years of age who is ill with a fever. It may cause severe liver damage.) Your appetite may be poor so a light diet is fine. Avoid dehydration by drinking 6-8 glasses of fluids per day (water, soft, drinks, juices, tea, soup, etc.). Extra fluids will help loosen secretions in the lungs. Prgn-tne-vybtjep cough medicines that contain dextromethorphan (such as Robitussin DM) and decongestants (Actifed or Sudafed) may help relieve cough and congestion. [NOTE: Do not use decongestants if you have high blood pressure.] If you were given an inhaler, use it exactly as directed. If you need to use it more often than prescribed, your condition may be worsening. Contact your doctor or this facility. If prescribed, finish all antibiotic medicine, even if you are feeling better after only a few days. Follow Up With Your Doctor Or As Directed If You Are Not Starting To Feel Better After Three Days. [NOTE: If you are age 65 or older, or if you have chronic asthma or COPD, we recommend a pneumococcal vaccination every five years and a yearly influenza vaccination (flu shot) every . Ask your doctor about this. If you had an x-ray or EKG (electrocardiogram), it will be reviewed by a specialist. You will be notified of any new findings that may affect your care.] Get Prompt Medical Attention If Any Of The Following Occur: Increased wheezing, shortness of breath or pain with breathing Fever of 100.4 F (38 C) oral or higher, not better with fever medication Coughing up blood or increasing amounts of colored sputum Weakness, drowsiness, headache, facial pain, ear pain or a stiff neck Lower leg swelling, tenderness, redness or pain 2249-2368 [employer]. [address] [place] [address], [place] [address]. All rights reserved. This information is not intended as a substitute for professional medical care. Always follow your healthcare professional's instructions. Additional Information VACCINATE! IT SAVES LIVES! Members of the community who have not yet received the COVID-19 vaccine and would like to receive it can visit one of [facility] vaccine clinics. There are many vaccine clinic locations within the [facility]. For locations and available times, please visit [email or web address] [email or web address] It is important to note that some COVID mobile vaccine clinics are held outdoors and may be canceled in rainy or stormy conditions. To learn more about pediatric vaccinations (ages 5-11), we invite you to visit the [facility] webpage. [email or web address] [email or web address]-[email or web address]-Freq [email or web address]-Xdctrbvpr.[email or web address] To learn more about the COVID-19 vaccine, we invite you to visit the CDC website for a list of frequently asked questions. https://www.cdc.gov/coronavirus/ 2019-ncov/vaccines/faq.html [employer] [employer] Patient Portal Access Instructions: Stay connected with your healthcare team and access your personal medical information anytime with the [employer] Patient Portal. If you would like a full copy of your medical records please contact the [facility] Medical Records Department Thursday through Thursday between 8a.m. and 4:30p.m. Please follow the directions below to access the portal: 1.Access the email account you provided upon registration to the [facility].2.Look for an invitation email from [facility].3.Open the email and access the invitation link: Accept Invitation to [facility] 144.Fill in the required momin to create your account. Sign into [email or web address] with your username and password that you created in the above steps to stay up to date. You can then view a summary of results, a summary of your visits, and the ability to download your summaries to your computer or send the information securely to a physician. Remember that your healthcare information is confidential, so carefully consider who you will allow to register on the [facility] Patient Portal for access to your information. You can also access the [facility] Patient Portal on the [employer] sammy. Simply click on Health Records under Health Data and then click on the [facility] logo. HOW TO SAFELY DISPOSE OF PRESCRIPTION MEDICATIONS Please use one of the following methods to safely dispose of your unused medications. 1.Use a drug disposal kit: the drug disposal pouch allows you to safely discard your old and unused drugs. Ask your nurse to give you one when you are discharged.2.Visit a local take-back location: Many local pharmacies and police departments have programs that collect old and unwanted prescription drugs. Call your local pharmacy or go to http://RIDERS.Cryptopay/4V8Gg3v to find one close to you.3.Make use of household items: Use cat litter or old coffee grounds to dispose medications if other options are not available. Mix your drugs with these household products, seal them in an airtight container and throw it into the garbage. Call [facility]: [phone] to be sure your drugs can be disposed of in this way. Some medicines may require a different approach.4.Never flush your medications down the toilet. IF YOU HAVE BEEN PRESCRIBED AN OPIOIDS FOR PAIN If you have been prescribed an opioid (such as hydrocodone, oxycodone or morphine), it is critical to understand the possible side effects and risks of opioid pain medications. Even when taken as directed, opioids can have several side effects including: Tolerance, meaning you might need to take more of a medication for the same pain relief. Nausea, vomiting and/or constipation. Sleepiness, dizziness, dry mouth, confusion, depression or itching. Physical dependence, meaning you have withdrawal symptoms when a medication is stopped ? this can develop within a few days. KNOW YOUR RESPONSIBILITIES It is important to know exactly how much and how often to take the opioid pain medications you are prescribed. Never take opioids in higher amounts or more often than prescribed. Do not combine opioids with alcohol or other drugs that cause drowsiness, such as benzodiazepines, also known as benzos, including diazepam and alprazolam, muscle relaxants or sleep aids. Never sell or share prescription opioids. This is illegal. Store opioids in a secure place and out of reach of others (including children, family, friends and visitors). The last page(s) of this document has been signed and retained as a CHART COPY Signatures Patient Education Materials BRONCHITIS w/ Wheezing (Adult) BRONCHITIS w/ Wheezing (Adult) Medication Leaflets albuterol (oral), prednisone, benzonatate My discharge plan and instructions have been reviewed and explained to me and I,JESSICA BARR understand my current condition and have read and understand these discharge instructions. I have received a written copy of the plan/instructions. If I have questions, I am aware that I should contact my doctor. 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 inflammation of the large intestine Abnormal tissue growths (tumors or polyps) in the GI tract A bulging rectum (also called a rectal prolapse) Abnormal blood vessels in the small intestine or in the colon Common symptoms Common symptoms include the following: Rectal pain, itching, or soreness Belly pain or epigastric pain Minor occasional drops of blood that appear on the stool or toilet paper, to greater amounts of stool that appear black or tarry Rectal bleeding can also happen without pain. [id number] [employer] [address] [place] [address]. All rights reserved. This information is not intended as a substitute for professional medical care. Always follow your healthcare professional's instructions. Follow Up Care 04/17/2022 14:32:48 With:VASQUEZ MOCTEZUMA MD Address: [address] [place] [address] [place] [address]- When:2-4 days [facility] 04-17-2022 Note Discharge Instructions Thank you for allowing [facility] to assist you with your healthcare needs. The following is important discharge information regarding your hospital visit. Diagnosis from Today's Visit Rectal bleed What to Do Next Instructions from Your Care Team Keep stool soft with the medication provided. If you develop diarrhea stop the medication. You should see improvement in 1 to 2 days. If you have continued bleeding or develop any of the following symptoms please see your doctor or come to the emergency department: Chest pain, shortness of breath, fainting, confusion, lightheadedness. Increase amount of water you drink and amount of fiber you eat. No qualifying data available. Post Acute Orders No qualifying data available. You Need to Schedule the Following Appointments Follow Up with VASQUEZ MOCTEZUMA MD When Within 2-4 days Where: [address] [facility] Phys[facility] [place], [place] [id number]- Allergies NKA Medications Please ask your primary doctor or pharmacist before taking any other medication not listed, including over the counter drugs, herbal medications, vitamins and or supplements as they may interact with your home medications. What How Much When Instructions Last Dose New docusate (Colace 100 mg oral capsule) 1 cap by mouth Once a day as needed for for constipation Printed Prescription Please take this list to your next doctor s visit. Bring all medications you take, including over the counter medications, herbals and other supplements with you to your doctor s visit. Patients and families are reminded to discard old lists and to update any records with all medication providers or retail pharmacies. Education Materials Understanding Rectal Bleeding Rectal bleeding is when blood passes through your rectum and anus. It can happen with or without a bowel movement. Rectal bleeding may be a sign of a serious problem in your rectum, colon, or upper GI tract. Call your healthcare provider right away if you have any rectal bleeding. The GI Tract The gastrointestinal (GI) tract includes the mouth, esophagus, stomach, small intestine, large intestine (colon), rectum, and anus. The food you eat is digested as it passes through the GI tract. Solid waste leaves the body through the rectum. Rectal bleeding and GI problems The cause of rectal bleeding may be found in any region of the GI tract. The colon or rectum may be the site of your bleeding problem. Or, bleeding may be due to problems farther up the GI tract, such as in the small intestine, duodenum, or stomach. Causes of rectal bleeding Rectal bleeding causes include the following: Hemorrhoids (swollen veins in the rectum and anus) Fissures (tears in or near the anus) Diverticulosis (inflamed pockets in the colon wall) Infection Ischemia (low blood flow) Radiation damage Inflammatory bowel disease (Crohn's disease or ulcerative colitis) Ulcers in the upper GI tract and inflammation of the large intestine Abnormal tissue growths (tumors or polyps) in the GI tract A bulging rectum (also called a rectal prolapse) Abnormal blood vessels in the small intestine or in the colon Common symptoms Common symptoms include the following: Rectal pain, itching, or soreness Belly pain or epigastric pain Minor occasional drops of blood that appear on the stool or toilet paper, to greater amounts of stool that appear black or tarry Rectal bleeding can also happen without pain. [id number] [employer] [address] [place] [address]. All rights reserved. This information is not intended as a substitute for professional medical care. Always follow your healthcare professional's instructions. Additional Information VACCINATE! IT SAVES LIVES! Members of the community who have not yet received the COVID-19 vaccine and would like to receive it can visit one of [facility] vaccine clinics. There are many vaccine clinic locations within the [facility]. For locations and available times, please visit [email or web address]. It is important to note that some COVID mobile vaccine clinics are held outdoors and may be canceled in rainy or stormy conditions. To learn more about pediatric vaccinations (ages 5-11), we invite you to visit the [facility] webpage. [email or web address] To learn more about the COVID-19 vaccine, we invite you to visit the [facility] website for a list of frequently asked questions. [email or web address] [facility] Patient Portal Access Instructions: Stay connected with your healthcare team and access your personal medical information anytime with the [facility] [employer] Patient Portal. If you would like a full copy of your medical records please contact the [facility] Medical Records Department Thursday through Thursday between 8a.m. and 4:30p.m. Please follow the directions below to access the portal: 1.Access the email account you provided upon registration to the [facility].2.Look for an invitation email from [facility].3.Open the email and access the invitation link: Accept Invitation to [facility].Fill in the required momin to create your account. Sign into [email or web address] with your username and password that you created in the above steps to stay up to date. You can then view a summary of results, a summary of your visits, and the ability to download your summaries to your computer or send the information securely to a physician. Remember that your healthcare information is confidential, so carefully consider who you will allow to register on the [facility] Patient Portal for access to your information. You can also access the [facility] Patient Portal on the [facility]. Simply click on Health Records under Health Data and then click on the [facility] logo. HOW TO SAFELY DISPOSE OF PRESCRIPTION MEDICATIONS Please use one of the following methods to safely dispose of your unused medications. 1.Use a drug disposal kit: the drug disposal pouch allows you to safely discard your old and unused drugs. Ask your nurse to give you one when you are discharged.2.Visit a local take-back location: Many local pharmacies and police departments have programs that collect old and unwanted prescription drugs. Call your local pharmacy or go to http://RIDERS.Cryptopay/5X8Ul1k to find one close to you.3.Make use of household items: Use cat litter or old coffee grounds to dispose medications if other options are not available. Mix your drugs with these household products, seal them in an airtight container and throw it into the garbage. Call [facility]: [phone] to be sure your drugs can be disposed of in this way. Some medicines may require a different approach.4.Never flush your medications down the toilet. IF YOU HAVE BEEN PRESCRIBED AN OPIOIDS FOR PAIN If you have been prescribed an opioid (such as hydrocodone, oxycodone or morphine), it is critical to understand the possible side effects and risks of opioid pain medications. Even when taken as directed, opioids can have several side effects including: Tolerance, meaning you might need to take more of a medication for the same pain relief. Nausea, vomiting and/or constipation. Sleepiness, dizziness, dry mouth, confusion, depression or itching. Physical dependence, meaning you have withdrawal symptoms when a medication is stopped ? this can develop within a few days. KNOW YOUR RESPONSIBILITIES It is important to know exactly how much and how often to take the opioid pain medications you are prescribed. Never take opioids in higher amounts or more often than prescribed. Do not combine opioids with alcohol or other drugs that cause drowsiness, such as benzodiazepines, also known as benzos, including diazepam and alprazolam, muscle relaxants or sleep aids. Never sell or share prescription opioids. This is illegal. Store opioids in a secure place and out of reach of others (including children, family, friends and visitors). The last page(s) of this document has been signed and retained as a CHART COPY Signatures Patient Education Materials Understanding Rectal Bleeding Medication Leaflets My discharge plan and instructions have been reviewed and explained to me and I,JESSICA BARR understand my current condition and have read and understand these discharge instructions. I have received a written copy of the plan/instructions. If I have questions, I am aware that I should contact my doctor. 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 Subjective Patient presents with: Acute Visit: chest pain and weight loss Jessica Barr was here for weight loss. He used to eat 3 times a day or more. About 2 months ago, he started having early satiety. His weight used to be 165 but it was dropping since then. For years, he noted vague left or right sided chest discomfort lasting a few minutes after eating fast food. He tended to avoid fast food. He denied any recent illness, or other associated symptoms. He rarely took Advil. He had Covid last year and mainly lost his smell, which was improving back to baseline. He had fatigue in the past but this improved lately. The history is provided by the patient. Review of Systems Constitutional: Positive for appetite change and fatigue. Negative for activity change, chills, diaphoresis and fever. HENT: Negative for sore throat and trouble swallowing. Eyes: Negative. Respiratory: Negative for cough, choking, chest tightness, shortness of breath and wheezing. Cardiovascular: Negative for chest pain, palpitations and leg swelling. Gastrointestinal: Negative for abdominal pain, blood in stool, constipation, diarrhea, nausea and vomiting. Genitourinary: Negative for difficulty urinating and hematuria. Musculoskeletal: Negative. Skin: Negative. Neurological: Positive for light-headedness. Negative for dizziness, syncope, weakness and headaches. Hematological: Negative for adenopathy. Psychiatric/Behavioral: Negative for dysphoric mood. PAST MEDICAL HISTORY Diagnosis Date ADHD (attention deficit hyperactivity disorder) 12 y.o. COVID-19 04/2021 Nasal fracture 3 y.o Otitis media in diseases classified elsewhere, bilateral 7 y.o. PAST SURGICAL HISTORY Procedure Laterality Date W EAR TUBE 2006 bilateral years Social History Tobacco Use Smoking status: Never Smoker Smokeless tobacco: Never Used Vaping Use Vaping Use: Never used Substance Use Topics Alcohol use: No Drug use: Never ALLERGIES No Known Allergies Current Outpatient Medications Medication Sig ibuprofen (ADVIL) 200 mg tablet Take 200 mg by mouth every 6 hours as needed. No current facility-administered medications for this visit. Objective BP 110/52 Pulse (!) 55 Resp 16 Wt 68.9 kg (152 lb) SpO2 98% Physical Exam Constitutional: Appearance: Normal appearance. HENT: Head: Normocephalic. Eyes: General: No scleral icterus. Conjunctiva/sclera: Conjunctivae normal. Neck: Thyroid: No thyromegaly. Cardiovascular: Rate and Rhythm: Normal rate and regular rhythm. Heart sounds: No murmur heard. No gallop. Pulmonary: Breath sounds: Normal breath sounds. Chest: Breasts: Right: No axillary adenopathy or supraclavicular adenopathy. Left: No axillary adenopathy or supraclavicular adenopathy. Abdominal: Palpations: Abdomen is soft. There is no mass. Tenderness: There is no abdominal tenderness. There is no right CVA tenderness or left CVA tenderness. Hernia: No hernia is present. There is no hernia in the left inguinal area or right inguinal area. Genitourinary: Pubic Area: No rash. Penis: Normal. Testes: Normal. Musculoskeletal: General: Normal range of motion. Cervical back: Neck supple. Right lower leg: No edema. Left lower leg: No edema. Lymphadenopathy: Cervical: No cervical adenopathy. Upper Body: Right upper body: No supraclavicular, axillary or pectoral adenopathy. Left upper body: No supraclavicular, axillary or pectoral adenopathy. Lower Body: No right inguinal adenopathy. No left inguinal adenopathy. Neurological: Mental Status: He is alert. Assessment and Plan 1. Weight loss, unintentional - ICD9: 783.21, ICD10: R63.4 (primary diagnosis) - CBC - COMP METABOLIC PANEL - TSH BLD 2. Early satiety - ICD9: 780.94, ICD10: R68.81 - CBC - COMP METABOLIC PANEL - TSH BLD 3. Fatigue, unspecified type - ICD9: 780.79, ICD10: R53.83 Improving. - CBC - COMP METABOLIC PANEL - TSH BLD - VITAMIN B12 BLOOD 4. Screening for HIV without presence of risk factors - ICD9: V73.89, ICD10: Z11.4 - HIV 1 2 COMBO(AG/AB),WITH REFLEX TO DIFFERENTIATION 5. Encounter for hepatitis C screening test for low risk patient - ICD9: V73.89, ICD10: Z11.59 - HEP C AB IA W/CONF SCRN Prakash Zhao MD documented in this encounter [facility] 01-31-2022 Miscellaneous Notes Spoke with patients mother, verbalized understanding of results regarding testing. Patient mother concerned about patient's recent weight loss and complaints of chest pain, patient set up with an appt with [facility] today 01/31 @ 4:00pm to establish and discuss concerns. Jessy Kendrick MA Negative for flu and covid please notify thank you documented in this encounter [facility] 01-30-2022 History of Presen t illness Narrative Subjective HPI Jessica Barr is a 16 year old male who presents with a sore throat, cough, nasal congestion, and left ear feeling plugged. He has not had a fever. He denies any known sick contacts. He took advil at home. He rates his sore throat pain 8/10 when swallowing. Review of Systems Constitutional: Negative for chills and fever. HENT: Positive for congestion and sore throat. Respiratory: Positive for cough. Cardiovascular: Negative. BP 112/62 Pulse 82 Temp 36.7 C (98 F) Resp 18 Wt 69.2 kg (152 lb 9.6 oz) SpO2 99% PAST MEDICAL HISTORY Diagnosis Date ADHD (attention deficit hyperactivity disorder) Nasal fracture Otitis media in diseases classified elsewhere, bilateral PAST SURGICAL HISTORY Procedure Laterality Date W EAR TUBE 2005 bilateral years ALLERGIES Patient has no known allergies. MEDICATIONS ibuprofen (ADVIL) 200 mg tablet Take 200 mg by mouth every 6 hours as needed. FAMILY HISTORY Problem Relation Age of Onset Diabetes Maternal Grandmother Coronary Artery Disease Maternal Grandfather ND Coronary Artery Disease Paternal Grandfather ND Breast Cancer Other Social History Tobacco Use Smoking status: Never Smoker Smokeless tobacco: Never Used Substance Use Topics Alcohol use: No Drug use: Never Objective Physical Exam Vitals and nursing note reviewed. Constitutional: Appearance: Normal appearance. HENT: Nose: Congestion present. Mouth/Throat: Mouth: Mucous membranes are moist. Pharynx: Posterior oropharyngeal erythema present. Cardiovascular: Rate and Rhythm: Normal rate and regular rhythm. Heart sounds: Normal heart sounds. Pulmonary: Effort: Pulmonary effort is normal. No respiratory distress. Breath sounds: Normal breath sounds. No wheezing or rales. Skin: General: Skin is warm and dry. Capillary Refill: Capillary refill takes less than 2 seconds. Findings: No erythema or rash. Neurological: Mental Status: He is alert. ASSESSMENT/PLAN: 1. Sore throat - ICD9: 462, ICD10: J02.9 (primary diagnosis) - suspect viral - Alere Strep Test NEGATIVE, no culture pending - Discussed supportive care treatment with fluids, rest and analgesia. - The patient may also use chloraseptic spray and/or CEPACOL lozenges. - STREP A MOLECULAR (POC) 2. Viral URI with cough - ICD9: 465.9, ICD10: J06.9 - Discussed viral etiology and rationale for treatment. - Symptomatic treatment with prn analgesia - Supportive care with fluids and rest - COVID WITH FLUA+B, ROUTINE - recommend home isolation until test result is known to be negative. If positive, 5 days of home isolation then wear a mask for an additional 5 days. - Follow-up with your PCP in 3-5 days if symptoms have not improved or sooner if symptoms worsen - Discussed red flags and need for immediate medical evaluation if any occur. - Discussed supportive care treatment with fluids, rest and analgesia. - Discussed expected course of illness Ivonne Cooper APRN.LEAD ETL DEVELOPER documented in this encounter [facility] 01-30-2022 Instructions Ivonne Cooper APRN.LEAD ETL DEVELOPER - 01/30/2022 5:09 PM EDT ASSESSMENT/PLAN: 1. Sore throat - ICD9: 462, ICD10: J02.9 (primary diagnosis) - suspect viral - Alere Strep Test NEGATIVE, no culture pending - Discussed supportive care treatment with fluids, rest and analgesia. - The patient may also use chloraseptic spray and/or CEPACOL lozenges. - STREP A MOLECULAR (POC) 2. Viral URI with cough - ICD9: 465.9, ICD10: J06.9 - Discussed viral etiology and rationale for treatment. - Symptomatic treatment with prn analgesia - Supportive care with fluids and rest - COVID WITH FLUA+B, ROUTINE - recommend home isolation until test result is known to be negative. If positive, 5 days of home isolation then wear a mask for an additional 5 days. - Follow-up with your PCP in 3-5 days if symptoms have not improved or sooner if symptoms worsen - Discussed red flags and need for immediate medical evaluation if any occur. - Discussed supportive care treatment with fluids, rest and analgesia. - Discussed expected course of illness Ivonne Cooper APRN.LEAD ETL DEVELOPER SORE THROAT INSTRUCTIONS SORE THROAT OVERVIEW - Sore throat is a common problem during childhood, and is usually the result of a bacterial or viral infection. Although sore throat usually resolves without complications, it sometimes requires treatment with an antibiotic. There are some less common causes of sore throat that are serious or even life-threatening. This topic will discuss the most common causes and treatments of sore throat in children, as well as the warning signs of more serious conditions. SORE THROAT CAUSES - The most likely cause of a child's sore throat depends upon the child's age, the season, and the geographic area. While viruses are the most common cause of sore throat, bacteria are another common cause. Bacteria and viruses are spread from one person to another through hand contact. Hands get contaminated when the sick individual touches their nose or mouth and then touches another person directly (dahg-yq-fqbc contact) or indirectly (rxgr-cr-ltkozb, such as doorknob, telephone, toys). It is difficult to determine the cause of sore throat based upon symptoms alone; an examination and laboratory test are recommended in most cases Viruses - There are many viruses that can cause pain and swelling of the throat. The most common include viruses that cause sore throat as part of an upper respiratory infection, such as the common cold. Other viruses that cause sore throat include influenza, adenovirus, and Deepak-Palacios virus (the cause of mononucleosis). Symptoms - Symptoms that may occur with a viral infection can include a runny nose and congestion, irritation or redness of the eyes, cough, hoarseness, soreness in the roof of the mouth, a skin rash, or diarrhea. In addition, children with viral infections may have a fever and may feel miserable. A high fever does not necessarily mean that the child has a bacterial infection. Group A streptococcus - Group A streptococcus (GAS) is the name of the bacterium that causes strep throat. Although other bacteria can cause a sore throat, GAS is the most common bacterial cause; up to 30 percent of children with a sore throat will have GAS. Strep throat usually occurs during the winter and early spring, and is most common in school-age children and their younger siblings. Symptoms - Symptoms of strep throat in children older than 3 years often develop suddenly and include fever (temperature ?100.4 F or 38 C), headache, abdominal pain, nausea, and vomiting. Other symptoms can include swollen glands in the neck, white patches of pus in the back or sides of the throat, small red spots on the roof of the mouth, and swelling of the uvula. A cough and cold are not commonly seen in children with strep throat. Strep throat is uncommon in children younger than age 2 to 3 years. However, GAS infection can occur in younger children, and may cause a runny nose and congestion that is prolonged, low-grade fever (?101 F or 38.3 C), and tender glands in the neck. Infants younger than 1 year may be fussy and have a decreased appetite and low-grade fever. SORE THROAT TREATMENT - The treatment of sore throat depends upon the cause; strep throat is treated with an antibiotic while viral pharyngitis is treated with rest, pain relievers, and other measures to reduce symptoms. Strep throat - Strep throat is usually treated with an antibiotic, such as penicillin, or an antibiotic similar to penicillin (eg, amoxicillin). Children who are allergic to penicillin will be given an alternate antibiotic. The antibiotic is usually given in pill or liquid form two or three times per day. A one-time injection is also available, and may be recommended if a child is unwilling to take an oral medication. After completing 24 hours of antibiotics, the child is no longer contagious and may return to school. Symptoms usually improve within 1 to 2 days. However, it is important for the child to finish the entire course of treatment (usually 10 days). If a child does not begin to improve or worsens within 3 days, the child should be reevaluated. Throat pain can be treated with a non-prescription pain medication, if needed. (See 'Pain medications' below.) In addition, parents should monitor their child for dehydration, which can develop if the child is not willing to drink or eat due to a sore throat. (See 'Monitor for dehydration' below.) Viral throat pain - Sore throat caused by viral infections usually last 4 to 5 days. During this time, treatments to reduce pain may be helpful but will not help to eliminate the virus. Antibiotics do not improve throat pain caused by a virus and are not recommended. A child with a viral infection is usually allowed to return to school when there has been no fever for 24 hours and the child feels well enough to pay attention. Pain medications - Throat pain can be treated with a mild pain reliever such as acetaminophen (Tylenol ) or a non-steroidal anti-inflammatory agent such as ibuprofen (Motrin ). These medications should be dosed according to weight, not age. Aspirin is not recommended for children <18 years due to the risk of a potentially serious condition known as Osmin syndrome. Monitor for dehydration - Some children with a sore throat are reluctant to drink or eat due to pain. Drinking less fluid can lead to dehydration. To reduce the risk of dehydration, parents can offer warm or cold liquids. (See 'Other interventions' below.) Signs and symptoms of mild dehydration include a slightly dry mouth, increased thirst, and decreased urine output (one wet diaper or void in six hours). Signs of moderate or severe dehydration include decreased urine output (less than one wet diaper or void in six hours), lack of tears when crying, dry mouth, and sunken eyes. A child who is moderately or severely dehydrated should be evaluated by a healthcare provider as soon as possible to determine if treatment is needed. Oral rinses- Salt-water gargles are an old stand-by for relief of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 tablet by mouth every 6 hours as needed for Pain for up to 7 days. 28 tablet 0 06/18/2022 06/25/2022 cephALEXin (KEFLEX) 500 MG capsule Take 1 capsule by mouth 4 times daily for 10 days 40 capsule 0 06/18/2022 06/28/2022 Prescription Sig Dispensed Refills Start Date End Da te ondansetron (ZOFRAN) 4 MG tablet Take 1 tablet by mouth 3 times daily as needed for Nausea or Vomiting 30 tablet 0 06/21/2022 Prescription Sig Dispensed Refills Start Date End Da te cephALEXin (KEFLEX) 500 MG capsule Take 1 capsule by mouth 4 times daily for 7 days 28 capsule 0 07/01/2022 07/08/2022 Scheduled Active and Recently Administ ered Medications (unrecognized section and content) Medication Order 06/16/2022 06/17/2022 06/18/2022 acetaminophen (TYLENOL) tablet 1,000 mg (COMPLETED) 1,000 mg, Oral, ONCE, 1 dose, On Thu06/17/22 at 0300, Maximum dose of acetaminophen is 4000 mg from all sources in 24 hours. 0318 (Given - Provider: Kerrie Montano RN) acetaminophen (TYLENOL) tablet 1,000 mg 1,000 mg, Oral, EVERY 8 HOURS SCHEDULED (3 times per day), First dose on Thu06/17/22 at 1400, Until Discontinued, Maximum dose of acetaminophen is 4000 mg from all sources in 24 hours. 1451 (Given - Provider: Maru Galvez RN)2100 (Given - Provider: Emmanuel Horton RN) 0516 (Given - Provider: Emmanuel Horton RN)1354 (Given - Provider: Smiley Swanson RN)2200 (Due) ceFAZolin (ANCEF) 2000 mg in dextrose 4 % 100 mL IVPB (premix) (CANCELED) 2,000 mg, IntraVENous, EVERY 8 HOURS, First dose on Thu06/17/22 at 0600, Until Discontinued, Antimicrobial Indications: Other, Other Abx Indication: Traumatic open fx 0546 (MAR Hold - Provider: Emmy Autohold - Reason: Unreviewed Transfer Orders)0600 (Automatically Held - Provider: Emmy Autohold)0608 (Given by Other Clinician - Provider: Edmund Julien RN)1027 (MAR Unhold - Provider: Kam Ramirez MD) celecoxib (CELEBREX) capsule 100 mg 100 mg, Oral, 2 TIMES DAILY, First dose on Thu06/17/22 at 1045, Until Discontinued 1259 (Not Given - Provider: Maru Galvez RN - Reason: Medication not available)205 (Given - Provider: Emmanuel Horton RN) 0750 (Given - Provider: Smiley Swanson RN)2100 (Due) enoxaparin Sodium (LOVENOX) injection 30 mg 30 mg, SubCUTAneous, 2 TIMES DAILY, First dose on Thu06/17/22 at 1300, Until Discontinued, Indication of Use: Prophylaxis-DVT/PE 1451 (Given - Provider: Maru Galvez RN)210 (Not Given - Provider: Emmanuel Horton RN - Reason: Patient/family refused) 0753 (Not Given - Provider: Smiley Swanson RN - Reason: Patient/family refused)2100 (Due) gabapentin (NEURONTIN) capsule 100 mg 100 mg, Oral, 3 TIMES DAILY, First dose on Thu06/17/22 at 0900, Until Discontinued 1037 (Given - Provider: Maru Galvez RN)1451 (Given - Provider: Maru Galvez RN)2100 (Given - Provider: Emmanuel Horton RN) 0750 (Given - Provider: Smiley Swanson RN)1353 (Given - Provider: Smiley Swanson RN)2100 (Due) ibuprofen (ADVIL;MOTRIN) tablet 400 mg (COMPLETED) 400 mg, Oral, ONCE, 1 dose, On Thu06/17/22 at 0300, Do not crush or chew. 0319 (Given - Provider: Kerrie Montano RN) methocarbamol (ROBAXIN) tablet 1,000 mg 1,000 mg, Oral, 4 TIMES DAILY, First dose on Thu06/17/22 at 0900, Until Discontinued 1037 (Given - Provider: Maru Galvez RN)1451 (Given - Provider: Maru Galvez RN)1748 (Given - Provider: Maru Galvez RN)2100 (Given - Provider: Emmanuel Horton RN) 0750 (Given - Provider: Smiley Swanson RN)1354 (Given - Provider: Smiley Swanson RN)1700 (Due)2100 (Due) piperacillin-tazobactam (ZOSYN) 3375 mg in dextrose 50 mL IVPB extended infusion (premix) (COMPLETED) 3,375 mg, IntraVENous, ONCE, 1 dose, On Thu06/17/22 at 0400, Antimicrobial Indications: Bone and Joint Infection 0428 (New Bag - Provider: Kerrie Montano RN)1156 (Stopped - Provider: Maru Galvez RN) piperacillin-tazobactam (ZOSYN) 3375 mg in dextrose 50 mL IVPB extended infusion (premix) 3,375 mg, IntraVENous, Every 8 hours, First dose (after last reorder) on Thu06/17/22 at 1230, Until Discontinued, Antimicrobial Indications: Bone and Joint Infection 1155 (New Bag - Provider: Maru Galvez RN)1656 (Stopped - Provider: Maru Galvez RN)2100 (New Bag - Provider: Emmanuel Horton, RN) 0100 (Stopped - Provider: Emmanuel Horton, RN)0458 (New Bag - Provider: Emmanuel Horton, RN)0858 (Stopped - Provider: Smiley Swanson RN)1301 (Not Given - Provider: Smiley Swanson RN - Reason: Other - Comment: patient being discharged; IV removed)2030 (Due) polyethylene glycol (GLYCOLAX) packet 17 g 17 g, Oral, DAILY, First dose on Thu06/17/22 at 1045, Until Discontinued, Stir and dissolve one packet of powder (17 g) in any 4 to 8 ounces of beverage (cold, hot or room temperature) then drink 1037 (Given - Provider: Maru Galvez RN) 0753 (Not Given - Provider: Smiley Swanson RN - Reason: Patient/family refused) sodium chloride flush 0.9 % injection 5-40 mL 5-40 mL, IntraVENous, EVERY 12 HOURS SCHEDULED (2 times per day), First dose on Thu06/17/22 at 1045, Until Discontinued, For Line Patency: Peripheral IV = 5 mL; Midline or Central Line = 10 mL/lumen. If following IV push medication, administer flush at same rate as the IV push. Flush volume is determined by type of infusion therapy being given. For non-viscous solutions use: Peripheral IV = 5 mL Midline or Central Line = 10 mL/lumen For viscous solutions (i.e. blood components, parenteral nutrition, contrast media, or after obtaining blood sample) use: Peripheral IV = 10 mL Midline or Central Line = 20 mL/lumen 1300 (Not Given - Provider: Maru Galvez RN - Reason: IV Fluid Infusing)2107 (Not Given - Provider: Emmanuel Horton RN - Reason: IV Fluid Infusing) 0954 (Given - Provider: Smiley Swanson RN)2100 (Due) Continuous Medication Order 06/16/2022 06/17/2022 06/18/2022 lactated ringers infusion (CANCELED) IntraVENous, at 100 mL/hr, CONTINUOUS, Starting on Thu06/17/22 at 0300 0319 (New Bag - Provider: Kerrie Montano RN)0546 (NOV Hold - Provider: Emmy Autohold - Reason: Unreviewed Transfer Orders)1027 (NOV Unhold - Provider: Maru Galvez RN) PRN Medication Order 06/16/2022 06/17/2022 06/18/2022 0.9 % sodium chloride infusion IntraVENous, at 5-250 mL/hr, PRN, if patient receiving piggyback infusions and maintenance fluids are not ordered OR KVO fluids to protect IV site / prevent frequent line interruptions/ long duration, Starting on Thu06/17/22 at 1027, For piggyback infusion, administer at same rate as piggyback for a total of 25 mL. Enter 25 mL into dose field and piggyback rate into rate field of order. If piggyback is infusing at a rate less than 100 mL/hr, enter 25 mL into dose field and 100 mL/hr into rate field of order. For KVO fluids, enter rate of 20 mL/hr or less into rate field of order. HYDROmorphone (DILAUDID) injection 0.5 mg (CANCELED) HYDROmorphone (DILAUDID) 1.5mg IV is equivalent to morphine 10mg IV, 0.5 mg, IntraVENous, EVERY 3 HOURS PRN, Starting on Thu06/17/22 at 0251, Until Thu06/18/22 at 0631, Pain Severe (7-10), If oral and IV narcotics ordered, use oral first and only use IV if oral is ineffective or cannot take oral. Do Not give oral and IV within 1 hour of each other unless specifically ordered. 0319 (Given - Provider: Kerrie Montano RN)0546 (MAR Hold - Provider: Emmy Autohold - Reason: Unreviewed Transfer Orders)1027 ([facility] Unhold - Provider: Maru Galvez, SOLANGE) ondansetron (ZOFRAN) injection 4 mg(Linked Group 1) 4 mg, IntraVENous, EVERY 6 HOURS PRN, Starting on Thu06/17/22 at 1027, Until Discontinued, Nausea, Vomiting, Administer if oral route cannot be used. ondansetron (ZOFRAN-ODT) disintegrating tablet 4 mg(Linked Group 1) 4 mg, Oral, EVERY 8 HOURS PRN, Starting on Thu06/17/22 at 1027, Until Discontinued, Nausea, Vomiting oxyCODONE (ROXICODONE) immediate release tablet 10 mg(Linked Group 2) 10 mg, Oral, EVERY 4 HOURS PRN, Starting on Thu06/17/22 at 0626, Until Discontinued, Pain Severe (7-10) 1531 (See Alternative - Provider: Maru Galvez RN)2058 (See Alternative - Provider: Emmanuel Horton RN) 0058 (See Alternative - Provider: Emmanuel Horton RN)0529 (Given - Provider: Emmanuel Horton RN)0951 (Given - Provider: Smiley Swanson RN)1354 (Given - Provider: Smiley Swanson, RN) oxyCODONE (ROXICODONE) immediate release tablet 5 mg(Linked Group 2) 5 mg, Oral, EVERY 4 HOURS PRN, Starting on Thu06/17/22 at 0626, Until Discontinued, Pain Moderate (4-6) 1531 (Given - Provider: Maru Galvez RN)2059 (Given - Provider: Emmanuel Horotn RN) 0058 (Given - Provider: Emmanuel Horton RN)0529 (See Alternative - Provider: Emmanuel Horton RN)0951 (See Alternative - Provider: Smiley Swanson RN)1354 (See Alternative - Provider: Smiley Swanson RN) sennosides-docusate sodium (SENOKOT-S) 8.6-50 MG tablet 2 tablet 2 tablet, Oral, DAILY PRN, Starting on Thu06/18/22 at 0632, Until Discontinued, Constipation sodium chloride flush 0.9 % injection 5-40 mL 5-40 mL, IntraVENous, PRN, Starting on Thu06/17/22 at 1027, Until Discontinued, Line Care, After every IV line use, For Line Patency: Peripheral IV = 5 mL; Midline or Central Line = 10 mL/lumen. If following IV push medication, administer flush at same rate as the IV push. Flush volume is determined by type of infusion therapy being given. For non-viscous solutions use: Peripheral IV = 5 mL Midline or Central Line = 10 mL/lumen For viscous solutions (i.e. blood components, parenteral nutrition, contrast media, or after obtaining blood sample) use: Peripheral IV = 10 mL Midline or Central Line = 20 mL/lumen Linked Groups Order Group 1: ondansetron (ZOFRAN-ODT) disintegrating tablet 4 mgJump to med 4 mg, Oral, EVERY 8 HOURS PRN, Starting on Thu06/17/22 at 1027, Until Discontinued, Nausea, Vomiting Or ondansetron (ZOFRAN) injection 4 mgJump to med 4 mg, IntraVENous, EVERY 6 HOURS PRN, Starting on Thu06/17/22 at 1027, Until Discontinued, Nausea, Vomiting
Administer if oral route cannot be used.
Group 2: oxyCODONE (ROXICODONE) immediate release tablet 5 mgJump to med 5 mg, Oral, EVERY 4 HOURS PRN, Starting on Thu06/17/22 at 0626, Until Discontinued, Pain Moderate (4-6) Or oxyCODONE (ROXICODONE) immediate release tablet 10 mgJump to med 10 mg, Oral, EVERY 4 HOURS PRN, Starting on Thu06/17/22 at 0626, Until Discontinued, Pain Severe (7-10) Scheduled Medication Order 06/19/2022 06/20/2022 06/21/2022 0.9 % sodium chloride bolus (COMPLETED) 1,000 mL (15.2 mL/kg), IntraVENous, at 495.9 mL/hr, Administer over 121 Minutes, ONCE, On 06/21/22 at 1800, For 1 dose 1901 (New Bag - Prov ider: Idania Wayne RN)2102 (Stopped - Provider: Idania Wayne RN) acetaminophen (TYLENOL) tablet 1,000 mg 1,000 mg, Oral, ONCE, 1 dose, On 06/21/22 at 2030, Maximum dose of acetaminophen is 4000 mg from all sources in 24 hours. 2107 (Not Given - Pr ovider: Idania Wayne RN - Reason: Patient/family refused) morphine sulfate (PF) injection 4 mg (COMPLETED) 4 mg, IntraVENous, ONCE, 1 dose, On 06/21/22 at 1945, If oral and IV narcotics ordered, use oral first and only use IV if oral is ineffective or cannot take oral. Do Not give oral and IV within 1 hour of each other unless specifically ordered. 1945 (Given - Provid er: Katie Liriano RN) ondansetron (ZOFRAN) injection 4 mg (COMPLETED) 4 mg, IntraVENous, ONCE, 1 dose, On 06/21/22 at 1945 1945 (Given - Provid er: Katie Liriano RN) Scheduled Medication Order 06/30/2022 07/01/2022 07/02/2022 cephALEXin (KEFLEX) capsule 500 mg (COMPLETED) 500 mg, Oral, ONCE, 1 dose, On 07/02/22 at 0000, Antimicrobial Indications: Skin and Soft Tissue Infection 0009 (Given - Provid er: Richie Almendarez RN) (unrecognized sect ion and content) No Status Records FoundNo Status Records FoundNo Status Records FoundNo Status Records FoundNo Status Records FoundNo Status Records FoundNo Status Records Found INFORMATION SOURCE (unrecogn ized section and content) DATE CREATED AUTHOR 07/02/2022 [employer] DATE CREATED AUTHOR AUTHOR'S ORGANIZ ATION 03/27/2023 [facility] DATE CREATED AUTHOR AUTHOR'S ORGANIZ ATION 05/15/2024 [facility] DATE CREATED AUTHOR AUTHOR'S ORGANIZ ATION 10/20/2024 [employer] [facility] DATE CREATED AUTHOR AUTHOR'S ORGANIZ ATION 02/03/2025 [facility] DATE CREATED AUTHOR AUTHOR'S ORGANIZ ATION 02/14/2025 [facility] DATE CREATED AUTHOR AUTHOR'S ORGANIZ ATION 02/26/2025 [facility] Goals (unrecognized section and content) Goals may be documented in a n alternate section FOR RECORDS PERTAINING TO PATIENTS WHO ARE OR HAVE BEEN ENROLLED IN A CHEMICAL DEPENDENCY/SUBSTANCEABUSE PROGRAM, SOME INFORMATION MAY BE OMITTED. This clinical summary was aggregated from multiple sources. Caution should be exercised in using it in the provision of clinical care. This summary normalizes information from multiple sources, and as a consequence, information in this document may materially change the coding, format and clinical context of patient data. In addition, data may be omitted in some cases. CLINICAL DECISIONS SHOULD BE BASED ON THE PRIMARY CLINICAL RECORDS. [employer] provides no warranty or guarantee of the accuracy or completeness of information in this document.
[2025-03-04] MEDS: Morphine 4 MG/ML Syringe IV (12:51)
[2025-03-04] MEDS: 0.9% Normal Saline (1000mL) 1,000 ML 999 ML IV (12:51)
[2025-03-04] MEDS: Ondansetron 4 MG/2 ML Vial IV (12:51)
[2025-03-04 13:07] LABS: Absolute Lymphocyte Count 1.06 X10^3/uL (0.83-4.51); Absolute Neutrophil Count 5.7 X10^3/uL (2.0-7.7); Basophil# 0.05 X10^3/uL; Basophil% 0.6 % (0-1); Eosinophil# 0.13 X10^3/uL; Eosinophils% 1.7 % (0-5); Hematocrit 42.1 % (40-54); Hemoglobin 14.6 g/dL (13.0-16.5); Lymphocyte # 1.06 X10^3/ul (0.83-4.51); Lymphocyte % 13.7 % (19-41); Mean Corp Hgb Conc 34.7 g/dL (32-36); Mean Corpuscular Hgb 29.4 pg (27.0-32.0); Mean Corpuscular Volume 84.7 fL (80-94); Mean Platelet Vol. 9.6 fl (6.2-12.0); Monocyte# 0.76 X10^3/uL; Monocyte% 9.8 % (0-10); NRBC Flagged by Analyzer 0 % (0-5); Neutrophil # 5.74 X10^3/uL (2.7-7.7); Neutrophil % 73.9 % (47-70); Platelet Count 386 K/mm3 (150-450); RBC Distribution Width CV 13.3 % (11.6-14.6); RBC Distribution Width SD 41.2 fl (35.1-43.9); Red Blood Count 4.97 M/mm3 (4.6-6.2); White Blood Count 7.8 K/mm3 (4.4-11.0)
[2025-03-04 13:51] LABS: ALB/GLOB Ratio 1.7 RATIO (0.9-2.4); AST(SGOT) 20 U/L (<=37); Alanine Aminotransfer ALT/SGPT 10 U/L (<=46); Albumin, Serum 4.1 g/dL (3.5-5.0); Alkaline Phosphatase 74 U/L (40-129); Anion Gap 10 (5-15); BUN 8 mg/dL (4-19); BUN/Creat Ratio 10.1 RATIO (10-20); Calcium,Total 9.4 mg/dL (7.6-11.0); Carbon Dioxide 24.1 mmol/L (21.0-32.0); Chloride 103 mmol/L (98-108); Creatinine, Serum 0.83 mg/dL (0.70-1.20); EST Glomerular Filtration Rate 128 (>60); Estimated Creatinine Clearance 140.78 ml/min (50-250); Globulin 2.4 g/dL (2.2-4.2); Glucose 108 mg/dL (70-99); Potassium 4.7 mmol/L (3.3-5.1); Protein, Total 6.5 g/dL (5.9-8.4); Sodium Level 137 mmol/L (133-145); Total Bilirubin 0.65 mg/dL (0.00-1.30)
[2025-03-04 14:09] VITALS: BP 122/74; PULSE 84; RESP 15; TEMP 36.8; O2SAT 100
[2025-03-04 14:10] LABS: Bacteria 0 SEEN /hpf (None Seen); Mucous, Urine 0 SEEN /hpf (<or=2+); Red Blood Cells-Urine 0 SEEN /hpf (0-5); Squamous Epithelial Cells - UA 0 SEEN /hpf (0-5); White Blood Cells 0 SEEN /hpf (0-5)
[2025-03-04 14:31] LABS: Color, Urine Yellow (Yellow); Glucose, Dipstick Normal (Normal); Ketone-Dipstick Negative (Negative); Leukocyte Esterase-Dipstick Negative /ul (Negative); Nitrite-Dipstick Negative (Negative); Occult Blood-Urine Negative /ul (Negative); Protein-Dipstick 15 mg/dl (Negative); Specific Gravity, Urine 1.015 (1.002-1.030); Urine Bilirubin Dipstick Negative (Negative); Urine Clarity Clear (Clear); Urine Urobilinogen Normal (Normal)
[2025-03-04 15:02] LABS: Amorphous Sediment 1+
[2025-03-04] MEDS: Morphine 2 MG/ML Syringe 4 MG IV (15:37)
[2025-03-04 15:48] VITALS: BP 120/77; PULSE 81; RESP 16; TEMP 36.7; O2SAT 99
== END 2025-03-04 15:49 | disposition home or self-care (01) ==
PROVIDERS: Emergency Provider Emergency Medicine; PCP Registered Nurse; Referring Provider Emergency Medicine; Visit Provider Emergency Medicine
DX: N50.811 Right testicular pain (principal); F41.9 Anxiety disorder, unspecified; N50.89 Other specified disorders of the male genital organs; F32.A Depression, unspecified; Z79.899 Other long term (current) drug therapy; F17.210 Nicotine dependence, cigarettes, uncomplicated; F17.290 Nicotine dependence, other tobacco product, uncomplicated
CPT/HCPCS: 76870; 80053; 81001; 85025; 93976; 99283; A4216; J2405

== ENCOUNTER 2025-03-05 14:32 | Observation (INO) | payer MEDICAID, SELFPAY ==
[2025-03-05 14:33] VITALS: BP 117/80; PULSE 73; RESP 19; TEMP 36.8; O2SAT 99; BMI 28.8
--- OUTSIDE RECORDS SUMMARY | 2025-03-05 14:44 | XMS RPT_ITS | CCD ---
Author Organization [facility] Care Team Providers Care Physical Metallurgist Name Role Phone Vasquez Moctezuma Primary Care Provider [phone] Prakash Zhao MD Primary Care Provider [phone] JOSE ELIAS CALVIN, VASQUEZ Arevalo Primary Care [...] Unavailable Prakash Zhao MD Primary Care Provider [phone] PRAKASH ZHAO Primary Care Unavailable ANDREI, PRAKASH [...] Alvarado MD, Dr. Wesley Emergency Provider Vidhi HAINES-C, Mitali Primary Care Provider Aby GUN STOCK MAKER.DIRECTOR MEDICAID, Megan M Unavailable GIRMA BOYD Attending Unavailable PRAKASH ZHAO Primary Care Unavailable MEHRDAD GUN STOCK MAKER-DIRECTOR MEDICAID, DARREN Gonzales Attending Linus MOSHER GUN STOCK MAKER-DIRECTOR MEDICAID, MITALI A Primary Care Un available REG SHARPE DO Attending Unavailable VIDHI GUN STOCK MAKER-DIRECTOR MEDICAID, MITALI A Primary Care Un available SARBJIT CALVIN, DR KIARA Koenig Attending Unavailcésar MOSHER GUN STOCK MAKER-DIRECTOR MEDICAID, MITALI A Primary Care Un available Christiano CALVIN, Dr. Wesley Attending Provider Norris MARSHALL, Dr. Bullock Referring Provider [phone] Norris MARSHALL, Dr. Bullock Emergency Provider Felecia Roland Consulting Unavailable Felecia Roland Attending Unavailable Felecia Roland Admitting Unavailable Care Physician, No Primary Primary Care Unava ilable Yvette Nieto Attending Unavailable Yuriy Ding Consulting UnavailYvette Eisenberg Consulting Unavailable Vidhi MAIL MACHINE OPERATOR, Mitali Primary Care UnavailKobe Canas Attending Unavailable Kobe Pisano Referring Unavailable Lupillo Alvarado Attending Unavailable Care Physician, No Primary Primary Care Unava ilable Jacques Pual Attending Unavailable Care Physician, No Primary Primary Care Unava ilable Lupillo Alvarado Attending Unavailable Vidhi MAIL MACHINE OPERATOR, Mitali Primary Care UnavailYvette Eisenberg Attending Unavailable Felecia Roland Consulting Unavailable Care Physician, No Primary Primary Care Unava ilable Felecia Roland Admitting Unavailable Yuriy Ding Consulting Unavailcésar fajardo Medications Current Medications Medication Drug Class(es) Dates [...] Ordered docusate sodium 50 mg / sennosides, long term 8.6 mg oral tablet (4 sources) Start: [...] food/milk, # 30 tab(s), 0 Refill(s), Pharmacy: [facility]/pharmacy #[id number], Right wrist pain, 175, cm, 08/11/24 13:41:00 [...] 4 mg sertraline 25 mg oral tablet (4 sources) Serotonin Reuptake Inhibitor Start: 01-29-2025 take 1 tablet by mouth at bedtime Sertraline (Zoloft) 25 mg tablet Active 25 mg PO AT BEDTIME 30 January 29, 2025 12:00am Start: 09-28-2024 End: 10-28-2024 sertraline 25 mg oral tablet Dose : 25 mg = 1 tab(s), Oral, qDay, # 30 tab(s), 0 Refill(s), Pharmacy: [facility]/pharmacy #[id number], Generalized anxiety disorder, 173.3, cm, 09/28/24 15:05:00 [...] mg / clavulanate 125 mg oral tablet (2 sources) Penicillin-class Antibacterial Start: 06-02-2024 End: 01-29-2025 Amoxicillin-Pot [...] qDay, # 90 tab(s), 0 Refill(s), Pharmacy: [facility]/pharmacy #[id number], Anxiety, 175, cm, 08/11/24 13:41:00 EST, Height, kg, 08/11/24 13:41:00 EST, Dosing Weight Start Date: 08/11/24 Stop Date: 11/09/24 Status: Ordered Quantity: 90.0 Unit: tab(s) Repeat number: 1 Indications: Anxiety disorder, unspecified; ibuprofen 400 mg oral tablet (14 sources) Nonsteroidal Anti-inflammatory Drug Start: 06-02-2024 End: 01-29-2025 take 2 tablets by mouth every eight hours as needed for pain Ibuprofen 400 mg Tablet Discontinued 800 mg PO EVERY 8 HOURS NEEDED as needed for Pain Score 1-10 15 0 June 02, 2024 12:00am January 29, 2025 [...] sources) Serotonin-3 Receptor Antagonist Start: 06-21-2022 End: 06-21-2022 ondansetron (ZOFRAN) injection 4 mg Start: 06-21-2022 take 1 tablet by jose th three times daily as needed for nausea ondansetron (ZOFRAN) 4 MG tablet Take 1 tablet by mouth 3 times daily as needed for Nausea or Vomiting 30 tablet 0 06/21/2022 Active oxyCODONE hydrochloride 5 mg oral tablet (5 sources) Opioid Agonist Start: 06-02-2024 End: 01-29-2025 take 1 tablet by mouth every six hours as needed for pain Oxycodone 5 mg Tablet Discontinued 5 mg PO EVERY 6 HOURS NEEDED as needed for Pain Score 6-10 12 3 0 June 02, 2024 January 29, 2025 3:31am Abscess of neck Cutaneous abscess of neck Start: 06-18-2022 End: 06-25-2022 take 1 tablet [...] IVPB extended infusion (premix) polyethylene glycol 3350 57921 mg powder for oral solution (1 source) Osmotic Laxative Start: 06-17-2022 17 g, Oral, DAILY, First dose on Thu06/17/22 at 1045, Until Discontinued Stir and dissolve one packet of powder (17 g) in any 4 to 8 ounces of beverage (cold, hot or room temperature) then drink predniSONE 20 mg oral tablet (4 sources) Start: 05-27-2024 End: 06-02-2024 take 2 tablets by mouth once daily Prednisone 20 mg tablet Discontinued 40 mg PO DAILY 10 5 0 May 27, 2024 12:00am June 02, 2024 [...] Da te Episodic/Chronic Acute and chronic tonsillitis (2 sources) Acute tonsillitis; Translations: [Acute tonsillitis, unspecified] 06-02-2024 Episodic Anxiety disorders (2 sources) Generalized anxiety disorder 09-28-2024 Chronic Chronic obstructive pulmonary disease and bronchiectasis (1 source) Bronchitis; Translations: [Bronchitis, not specified as acute or chronic] Onset: Episodic Diseases of white blood cells (3 sources) Leukocytosis; Translations: [Elevated white blood cell [...] [Other fatigue] Onset: 2 Episodic Mood disorders (2 sources) Depressive disorder; Translations: [Depression] 01-29-2025 Chronic Mood [...] other orthopedic aftercare] Episodic Other circulatory disease (2 sources) Elevated blood-pressure reading without diagnosis of hypertension; [...] Cough; Translations: [Subacute cough] 03-18-2024 Episodic Other male genital disorders (1 source) Testicular mass; Translations: [Other specified disorders of the male genital organs] 03-04-2025 Episodic Other male genital disorders (1 source) Pain of right testicle; Translations: [Right testicular pain] 03-04-2025 Episodic Other nervous system disorders (1 source) [...] other specified conditions] Onset: 4 03-03-2024 Episodic Substance-related disorders (7 sources) Tobacco user; Translations: [Nicotine dependence, unspecified, uncomplicated] Onset: 4 03-03-2024 Chronic Suicide and intentional self-inflicted injury (2 sources) Suicidal thoughts; Translations: [Suicidal ideations] 01-29-2025 Episodic Unclassified (1 source) Contact with and (suspected) exposure to COVID-19; Translations: [Contact with and (suspected) exposure to COVID-19] Onset: 2 Unclassified (2 sources) Injury of right wrist 09-28-2024 Past or Other Problems Problem Classification Problem Date Documented Da te Episodic/Chronic Other upper respiratory infections (7 sources) Sore throat symptom; Translations: [Acute pharyngitis, unspecified] Onset: 06-20-2024 Episodic Residual codes; unclassified (1 source) Personal history of other specified conditions; 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, in remission] Onset: 03-03-2024 03-03-2024 Episodic Skin and subcutaneous tissue infections (3 sources) Abscess of neck; Translations: [Cutaneous abscess of neck] Onset: 06-02-2024 06-04-2024 Episodic Spondylosis; intervertebral disc disorders; other back problems (3 sources) Nerve root disorder; Translations: [Radiculopathy, site unspecified] Onset: 06-24-2024 Episodic Unclassified (1 source) Contact with and (suspected) exposure to COVID-19; Translations: [Contact with and (suspected) exposure to COVID-19] Onset: 06-21-2022 Viral infection (6 sources) Viral disease; Translations: [Viral infection, unspecified] Onset: 06-16-2024 02-29-2024 Episodic Results Test Name Value Interpretation Reference Range Facility Absolute lymphocyte countOrd ered By: Kobe Pisano on 03-04-2025 Lymphocytes Auto (Unsp spec) [#/Vol] 1.06 10*3/uL 0.83-4.51 [facility] Absolute neutrophil countOrd ered By: Kobe Pisano on 03-04-2025 Neutrophils (Bld) [#/Vol] 5.7 10*3/uL 2.0-7.7 [facility] Amorphous sediment detection in urine sediment by light microscopyOrdered By: Kobe Pisano on 03-04-2025 Amorphous sediment LM Ql (Urine sed) 1+ [facility] Anion gap in Serum or Plasma Ordered By: Kobe Pisano on 03-04-2025 Anion gap [Moles/Vol] 10 mmol/L 5-15 [facility] Automated lymphocyte count a s percentage of total leukocytesOrdered By: Kobe Pisano on 03-04-2025 Lymphocytes/100 WBC Auto (Unsp spec) 13.7 % Low 19-41 [facility] BUN/creatinine ratioOrdered By: Kobe Cardozoer on 03-04-2025 Urea nitrogen/Creatinine [Mass ratio] 10.1 mg/mg 10-20 [facility] Basophil percentageOrdered B y: Kobe Pisano on 03-04-2025 Basophils/100 WBC (Bld) 0.6 % 0-1 [facility] Bilirubin Test strip Ql (U)O rdered By: Kobe Cardozoer on 03-04-2025 Bilirubin Ql (U) Negative Negative [facility] Bilirubin, totalOrdered By: Kobe Pisano on 03-04-2025 Bilirubin [Mass/Vol] 0.65 mg/dL 0.00-1.30 [facility] CBC W/Diff, Automatedon 02-06 Absolute Lymph 1.06 X10 3/uL Normal 0.83-4.51 [facility] Comment on above: Performed By: #### L 100.0100, L500.4050 #### [facility] [address] [place], [address] Absolute Neut 5.7 X10 3/uL Normal 2.0-7.7 [facility] Comment on above: Performed By: #### L 100.0100, [id number] #### [facility] [address] [place], [address] Basophils/100 WBC (Bld) 0.6 % Normal 0-1 [facility] Comment on above: Performed By: #### L 100.0100, [id number] #### [facility] [address] [place], [address] Eosinophils/100 WBC (Bld) 1.7 % Normal 0-5 [facility] Comment on above: Performed By: #### L 100.0100, [id number] #### [facility] [address] [place], [address] Erythrocyte distribution width (RBC) [Ratio] 13.3 % Normal 11.6-14.6 [facility] Comment on above: Performed By: #### L 100.0100, [id number] #### [facility] [address] [place], [address] Hematocrit (Bld) [Volume fraction] 42.1 % Normal 40-54 [facility] Comment on above: Performed By: #### L 100.0100, [id number] #### [facility] [address] [place], [address] Hemoglobin (Bld) [Mass/Vol] 14.6 g/dL Normal 13.0-16.5 [facility] Comment on above: Performed By: #### L 100.0100, L500.4050 #### [facility] [address] [place], [address] IG% 0.300 Normal 0.0-0.9 [facility] Comment on above: Result Comment: IG% - Immature Granulocytes (promyelocytes, myelocytes and metamyelocytes) > 1% indicates that a LEFT SHIFT is Present. Performed By: #### L 100.0100, L500.4050 #### [facility] [address] [place], [address] Lymphocytes/100 WBC (Bld) 13.7 % Low 19-41 [facility] Comment on above: Performed By: #### L 100.0100, [id number] #### [facility] [address] [place], [address] MCH (RBC) [Entitic mass] 29.4 pg Normal 27.0-32.0 [facility] Comment on above: Performed By: #### L 100.0100, [id number] #### [facility] [address] [place], [address] MCHC (RBC) [Mass/Vol] 34.7 g/dL Normal 32-36 [facility] Comment on above: Performed By: #### L 100.0100, [id number] #### [facility] [address] [place], [address] MCV (RBC) [Entitic vol] 84.7 fL Normal 80-94 [facility] Comment on above: Performed By: #### L 100.0100, [id number] #### [facility] [address] [place], [address] Monocytes/100 WBC (Bld) 9.8 % Normal 0-10 [facility] Comment on above: Performed By: #### L 100.0100, [id number] #### [facility] [address] [place], [address] Neutrophils/100 WBC (Bld) 73.9 % High 47-70 [facility] Comment on above: Performed By: #### L 100.0100, [id number] #### [facility] [address] [place], [address] Nucleated RBC (Bld) [#/Vol] 0 10*3/uL Normal 0-5 [facility] Comment on above: Performed By: #### L 100.0100, [id number] #### [facility] [address] [place], [address] Platelet mean volume (Bld) [Entitic vol] 9.6 fL Normal 6.2-12.0 [facility] Comment on above: Performed By: #### L 100.0100, [id number] #### [facility] [address] [place], [address] Platelets (Bld) [#/Vol] 386 10*3/uL Normal 150-450 [facility] Comment on above: Performed By: #### L 100.0100, [id number] #### [facility] [address] [place], [address] RBC (Bld) [#/Vol] 4.97 10*6/uL Normal 4.6-6.2 [facility] Comment on above: Performed By: #### L 100.0100, [id number] #### [facility] [address] [place], [address] RDW SD 41.2 fl Normal 35.1-43.9 [facility] Comment on above: Performed By: #### L 100.0100, [id number] #### [facility] [address] [place], [address] WBC (Bld) [#/Vol] 7.8 10*3/uL Normal 4.4-11.0 [facility] Comment on above: Performed By: #### L 100.0100, [id number] #### [facility] [address] [place], [address] Carbon dioxide, total [Moles /volume] in Central venous bloodOrdered By: Kobe Pisano on 03-04-2025 CO2 [Moles/Vol] 24.1 mmol/L 21.0-32.0 [facility] Chloride assayOrdered By: Aleksandr Pisano on 03-04-2025 Chloride [Moles/Vol] 103 mmol/L 98-108 [facility] Comprehensive Metabolic Prof ilon 03-04-2025 Albumin [Mass/Vol] 4.1 g/dL Normal 3.5-5.0 [facility] Comment on above: Performed By: #### L 100.0100, [id number] #### [facility] [address] [place], [address] Albumin/Globulin [Mass ratio] 1.7 {ratio} Normal 0.9-2.4 [facility] Comment on above: Performed By: #### L 100.0100, [id number] #### [facility] [address] [place], [address] ALK PHOS 74 U/L Normal 40-129 [facility] Comment on above: Performed By: #### L 100.0100, [id number] #### [facility] [address] [place], [address] ALT [Catalytic activity/Vol] 10 U/L Normal <=46 [facility] Comment on above: Performed By: #### L 100.0100, [id number] #### [facility] [address] [place], [address] AST [Catalytic activity/Vol] 20 U/L Normal <=37 [facility] Comment on above: Performed By: #### L 100.0100, [id number] #### [facility] [address] [place], [address] Bilirubin [Mass/Vol] 0.65 mg/dL Normal 0.00-1.30 [facility] Comment on above: Performed By: #### L 100.0100, [id number] #### [facility] [address] [place], [address] BUN/CRE 10.1 RATIO Normal 10-20 [facility] Comment on above: Performed By: #### L 100.0100, [id number] #### [facility] [address] [place], [address] Calcium [Mass/Vol] 9.4 mg/dL Normal 7.6-11.0 [facility] Comment on above: Performed By: #### L 100.0100, [id number] #### [facility] [address] [place], [address] Chloride [Moles/Vol] 103 mmol/L Normal 98-108 [facility] Comment on above: Performed By: #### L 100.0100, [id number] #### [facility] [address] [place], [address] CO2 [Moles/Vol] 24.1 mmol/L Normal 21.0-32.0 [facility] Comment on above: Performed By: #### L 100.0100, [id number] #### [facility] [address] [place], [address] Creatinine [Mass/Vol] 0.83 mg/dL Normal 0.70-1.20 [facility] Comment on above: Performed By: #### L 100.0100, [id number] #### [facility] [address] [place], [address] ECRCL 140.78 ml/min Normal 50-250 [facility] Comment on above: Performed By: #### L 100.0100, [id number] #### [facility] [address] [place], [address] GAP 10 Normal 5-15 [facility] Comment on above: Performed By: #### L 100.0100, [id number] #### [facility] [address] [place], [address] GFR/1.73 sq M.predicted among non-blacks MDRD (S/P/Bld) [Vol rate/Area] 128 mL/min/{1.73_m2} Normal >60 [facility] Comment on above: Result Comment: mL/m in/1.73m2 CKD-EPI Creatinine Equation (2020) Performed By: #### L 100.0100, [id number] #### [facility] [address] [place], [address] Globulin (S) [Mass/Vol] 2.4 g/dL Normal 2.2-4.2 [facility] Comment on above: Performed By: #### L 100.0100, [id number] #### [facility] [address] [place], [address] Glucose [Mass/Vol] 108 mg/dL High 70-99 [facility] Comment on above: Performed By: #### L 100.0100, [id number] #### [facility] [address] [place], [address] Potassium [Moles/Vol] 4.7 mmol/L Normal 3.3-5.1 [facility] Comment on above: Performed By: #### L 100.0100, [id number] #### [facility] [address] [place], [address] Sodium [Moles/Vol] 137 mmol/L Normal 133-145 [facility] Comment on above: Performed By: #### L 100.0100, [id number] #### [facility] [address] [place], [address] T PROT 6.5 g/dL Normal 5.9-8.4 [facility] Comment on above: Performed By: #### L 100.0100, L500.4050 #### [facility] [address] [place], [address] Urea nitrogen [Mass/Vol] 8 mg/dL Normal 4-19 [facility] Comment on above: Performed By: #### L 100.0100, L500.4050 #### [facility] [address] [place], [address] Emergency Department Summary on 03-04-2025 Emergency Department Summary [facility] Medical Records Department [address] [place] [address] Emergency Department Summary 03/04/25 MR#: [id number] Acct: [id number] Name: JESSICA BARR Rep #: [id number] : 2005 19 From: Kobe Pisano DO PCP: ALEJANDRO Brown Status:REG ER Location: ED HPI History of Present Illness Chief Complaint: Male Pain/Injury Narrative Narrative: Patient is a 19-year-old male with past medical history of anxiety, depression who presented to the emergency department the chief complaint of right testicular pain and swelling. He states that about 2 weeks ago he noted that he had right testicular discomfort and noted within the last week that he has had noted increase in size of the right testicle when compared to the left. Patient denies any direct trauma or injuries denies any painful urination hematuria polyuria [facility] Medical History Depression Anxiety Home Medications ???Medication ???Instructions ???Recorded ???Last Taken ???Type sertraline 25 mg tablet (Zoloft) 25 mg PO QHS #30 tabs 01/29/25 Unk nown Rx Allergy/AdvReac Type Severity Reaction Status Date / Time No Known Allergies Allergy Verified 03/04/25 12:11 Surgical History Status post open reduction and internal fixation (ORIF) of fracture Social History Smoking Status: Current every day smoker tobacco type: cigarettes and e-cigarettes alcohol intake: current alcohol intake frequency: a few times a month substance use type: marijuana ROS ROS ED ROS Narrative Constitutional: Denies any fevers, chills, headaches Eyes: Denies change in vision double vision blurry vision Cardiovascular: Denies chest pain Respiratory: Denies shortness of breath Abdomen: Denies abdominal pain nausea vomit diarrhea : Denies painful urination, hematuria, polyuria complains of right testicular pain and swelling as noted above Neurological: Denies any numbness, wheeze, tingling Musculoskeletal: Denies any back pain Skin: Denies any rashes or lesions EXAM Physical Exam Narrative Exam Narrative: General: Patient was lying in bed rest comfortably did not appear to be acute distress Head: Atraumatic, normocephalic Eyes: PERRL bilaterally, EOMI by, no conjunctival injection noted Neck: Soft, supple, trachea midline Cardiovascular: Regular rate and rhythm no murmurs gallops rubs noted Respiratory: Clear to auscultation bilaterally Abdomen: Soft, nondistended, nontender to palpation Genitourinary: Patient's right testicle is firm and tender to palpation when compared to the left testicle, no tenderness to palpation in the epididymis posteriorly, no inguinal hernias noted no concern for Jennifer's gangrene Extremities: +5/5 strength noted in the bilateral upper and lower extremities, radial pulses +2/4 in the by extremities, no pedal edema no exam Neurological: Patient follow commands knew that he was at [facility] year is 2024 Skin: Warm, dry, tact no rashes or lesions noted Const Vital Signs: 03/04/25 12:10 03/04/25 14:09 Temperature 96.0 F L 98.2 F Temperature Source Temporal Oral Pulse Rate 96 84 Respiratory Rate 20 H 15 Blood Pressure 118/73 122/74 H Blood Pressure Mean 88 90 Pulse Ox 99 100 Oxygen Delivery Method Room Air Room Air MDM MDM MDM Narrative Medical decision making narrative: Patient is a 19-year-old male who presented to the emergency department with a chief complaint of right testicular pain. On the differential diagnosis includes but limited to testicular mass, testicular torsion, UTI. Once workup is obtained reviewed he will be reevaluated. At 12:34 PM called and discussed with on-call urologist Dr. Van who states that he feels that this is likely infection and he would like to wait on the ultrasound results. Patient's CBC reviewed showed no evidence of leukocytosis white blood count normal at 7.8, hemoglobin 14.6, platelet count was 386. Patient sodium was 137, potassium normal at 4.7, creatinine normal at 0.83. Patient's AST and ALT were 20 and 10 respectively. Patient's urinalysis reviewed showed no evidence of infection. Patient's testicular ultrasound reviewed showed a complex vascular mass within the right testicle measuring 3.2 x 3.0 x 2.3 cm cannot exclude testicular torsion small right hydrocele noted. I reach back out to on-call urologist Dr. Van who reviewed the images himself and states that this is testicular cancer this is not testicular torsion. He is recommending him having very close follow-up. I discussed the results with the patient and gave him hardcopy there is results and and stressed the importance of him followi (more content not included)... Normal [facility] Eosinophil percentageOrdered By: Kobe Pisano on 03-04-2025 Eosinophils/100 WBC (Bld) 1.7 % 0-5 [facility] Erythrocyte distribution wid th ratioOrdered By: Kobe Pisano on 03-04-2025 Erythrocyte distribution width (RBC) [Ratio] 13.3 % 11.6-14.6 [facility] Erythrocyte distribution wid th standard deviationOrdered By: Kobe Pisano on 03-04-2025 Erythrocyte distribution width (RBC) [Ratio] 41.2 fl 35.1-43.9 [facility] Glomerular filtration rate ( GFR) estimation/1.73 sq m using serum, plasma, or whole bOrdered By: Kobe Pisano on 03-04-2025 GFR/1.73 sq M.predicted among non-blacks MDRD (S/P/Bld) [Vol rate/Area] 128 mL/min/{1.73_m2} >60 [facility] Comment on above: mL/min/1.73m2 CKD-EP I Creatinine Equation (2020) Hematocrit Auto (Bld) [Volum e fraction]Ordered By: Kobe Pisano on 03-04-2025 Hematocrit (Bld) [Volume fraction] 42.1 % 40-54 [facility] Hemoglobin measurementOrdere d By: Kobe Pisano on 03-04-2025 Hemoglobin (Bld) [Mass/Vol] 14.6 g/dL 13.0-16.5 [facility] Immature granulocytes/100 WB C Auto (Bld)Ordered By: Kobe Pisano on 03-04-2025 Immature granulocytes/100 WBC (Bld) 0.300 % 0.0-0.9 [facility] Comment on above: IG% - Immature Granu locytes (promyelocytes, myelocytes and metamyelocytes) > 1% indicates that a LEFT SHIFT is Present. Ketones Test strip Ql (U)Ord ered By: Kobe Pisano on 03-04-2025 Ketones Ql (U) Negative Negative [facility] Laboratory - Chemistry and C hemistry - challengeOrdered By: Kobe Pisano on 03-04-2025 AST [Catalytic activity/Vol] 20 U/L <38 [facility] MCV (mean corpuscular volume ) determinationOrdered By: Kobe Pisano on 03-04-2025 MCV (RBC) [Entitic vol] 84.7 fL 80-94 [facility] Mean corpuscular hemoglobin (MCH) determinationOrdered By: Kobe Pisano on 03-04-2025 MCH (RBC) [Entitic mass] 29.4 pg 27.0-32.0 [facility] Mean corpuscular hemoglobin concentration (MCHC) determinationOrdered By: Kobe Pisano on 03-04-2025 MCHC (RBC) [Mass/Vol] 34.7 g/dL 32-36 [facility] Mean platelet volume determi nationOrdered By: Kobe Pisano on 03-04-2025 Platelet mean volume (Bld) [Entitic vol] 9.6 fL 6.2-12.0 [facility] Microscopic analysis of urin e for red blood cells (RBC)Ordered By: Kobe Pisano on 03-04-2025 Microscopic analysis of urine for red blood cells (RBC) 0 SEEN /hpf 0-5 [facility] Monocyte percentageOrdered B y: Kobe Pisano on 03-04-2025 Monocytes/100 WBC (Bld) 9.8 % 0-10 [facility] Mucus LM Ql (Urine sed)Order ed By: Kobe Pisano on 03-04-2025 Mucus Ql (Urine sed) 0 SEEN /hpf [facility] Neutrophil percentageOrdered By: Kobe Pisano on 03-04-2025 Neutrophils/100 WBC (Bld) 73.9 % High 47-70 [facility] Nitrite Test strip Ql (U)Ord ered By: Kobe Pisano on 03-04-2025 Nitrite Ql (U) Negative Negative [facility] Nucleated red blood cell per centageOrdered By: Kobe Pisano on 03-04-2025 Nucleated RBC/100 WBC (Bld) [Ratio] 0 % 0-5 [facility] Platelet countOrdered By: Aleksandr Pisano on 03-04-2025 Platelets (Bld) [#/Vol] 386 10*3/uL 150-450 [facility] Potassium measurement (mass/ volume)Ordered By: Kobe Pisano on 03-04-2025 Potassium (Unsp spec) [Mass/Vol] 4.7 mmol/L 3.3-5.1 [facility] Protein Test strip Ql (U)Ord ered By: Kobe Pisano on 03-04-2025 Protein Ql (U) 15 mg/dl High Negative [facility] RBC Auto (Bld) [#/Vol]Ordere d By: Kobe Pisano on 03-04-2025 RBC (Bld) [#/Vol] 4.97 10*6/uL 4.6-6.2 [facility] Serum creatinine measurement (mass/volume)Ordered By: Kobe Pisano on 03-04-2025 Creatinine [Mass/Vol] 0.83 mg/dL 0.70-1.20 [facility] Serum globulin measurementOr dered By: Kobe Pisano on 03-04-2025 Globulin (S) [Mass/Vol] 2.4 g/dL 2.2-4.2 [facility] Serum glucose measurement (m ass/volume)Ordered By: Kobe Pisano on 03-04-2025 Glucose [Mass/Vol] 108 mg/dL High 70-99 [facility] Serum or plasma alanine duval otransferase (ALT) measurementOrdered By: Kobe Pisano on 03-04-2025 ALT [Catalytic activity/Vol] 10 U/L <47 [facility] Serum or plasma albumin erica urement (mass/volume)Ordered By: Kobe Pisano on 03-04-2025 Albumin [Mass/Vol] 4.1 g/dL 3.5-5.0 [facility] Serum or plasma albumin/glob ulin mass ratioOrdered By: Kobe Pisano on 03-04-2025 Albumin/Globulin [Mass ratio] 1.7 {ratio} 0.9-2.4 [facility] Serum or plasma alkaline memo sphatase measurementOrdered By: Kobe Pisano on 03-04-2025 ALP [Catalytic activity/Vol] 74 U/L 40-129 [facility] Serum or plasma calcium erica urement (mass/volume)Ordered By: Kobe Pisano on 03-04-2025 Calcium [Mass/Vol] 9.4 mg/dL 7.6-11.0 [facility] Serum or plasma urea nitroge n measurement (mass/volume)Ordered By: Kobe Pisano on 03-04-2025 Urea nitrogen [Mass/Vol] 8 mg/dL 4-19 [facility] Sodium levelOrdered By: Severo Pisano on 03-04-2025 Sodium [Moles/Vol] 137 mmol/L 133-145 [facility] Squamous epithelial cells de tection in urine sediment by light microscopyOrdered By: Kobe Pisano on 03-04-2025 Epithelial cells.squamous LM Ql (Urine sed) 0 SEEN /hpf 0-5 [facility] Testicular with Arterial Kelvin won 03-04-2025 Testicular with Arterial Flow [facility] Imaging Services [address] [place] [address] Testicular with Arterial Flow MR#: [id number] Acct: [id number] Name: JESSICA BARR Rep #: [id number] : 2005 M 19 From: Mauricio Schrader PCP: ALEJANDRO Brown Status: REG ER Study: Testicular with Arterial Flow Date of Exam: Exam# [id number] Ordering Dr: Kobe Pisano DO PROCEDURE: TESTICULAR WITH ARTERIAL FLOW 03/04/2025 REASON FOR EXAM: CONCERN FOR TESTICULAR TORSION, RIGHT TECHNIQUE: TESTICULAR WITH ARTERIAL FLOW COMPARISON: none FINDINGS: Right testicle measures 4.2 x 3.3 x 2.6 cm and epididymus measures 1.2 x 1.0 x 0.8 cm. Small hydrocele is noted within the right. No varicocele of the right. 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 Cannot exclude testicular torsion. Left testicle measures 3.7 x 2.3 x 1.5 cm and epididymis measures 0.8 x 0.6 x 0.3 cm. Epididymal cyst measuring 0.3 x 0.3 x 0.3 cm. No hydrocele or varicocele of the left. 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 Cannot exclude testicular torsion. Small right-sided hydrocele. Reading Location: [id number] CC: MAIL MACHINE OPERATOR-C Mitali Mosher; Dr. Kobe Pisano DO Family Resource Specialist: Signed Normal [facility] Total proteinOrdered By: Yaquelin Pisano on 03-04-2025 Protein [Mass/Vol] 6.5 g/dL 5.9-8.4 [facility] Urinalysis, Completeon 03-04 AMORPHOUS 1+ Normal [facility] Comment on above: Order Comment: CLEAN CATCH Performed By: #### L 400.0001 #### [facility] Laboratory [address] [place], [address] BACTERIA 0 SEEN Normal None Seen [facility] Comment on above: Order Comment: CLEAN CATCH Performed By: #### L 400.0001 #### [facility] [address] [place], [address] EPI,SQUAMOUS 0 SEEN Normal 0-5 [facility] Comment on above: Order Comment: CLEAN CATCH Performed By: #### L 400.0001 #### [facility] [address] [place], [address] Mucus Ql (Urine sed) 0 SEEN Normal [facility] Comment on above: Order Comment: CLEAN CATCH Performed By: #### L 400.0001 #### [facility] [address] [place], [address] RBC 0 SEEN Normal 0-5 [facility] Comment on above: Order Comment: CLEAN CATCH Performed By: #### L 400.0001 #### [facility] [address] [place], [address] WBC 0 SEEN Normal 0-5 [facility] Comment on above: Order Comment: CLEAN CATCH Performed By: #### L 400.0001 #### [facility] [address] [place], [address] Urine clarityOrdered By: Yaquelin Pisano on 03-04-2025 Clarity (U) Clear Clear [facility] Urine color determinationOrd ered By: Kobe Pisano on 03-04-2025 Color (U) Yellow Yellow [facility] Urine glucose detectionOrder ed By: Kobe Pisano on 03-04-2025 Glucose Ql (U) Normal mg/dl Normal [facility] Urine leukocyte esterase det ection by dipstickOrdered By: Kobe Pisano on 03-04-2025 Leukocyte esterase Test strip Ql (U) Negative Negative [facility] Urine pHOrdered By: Kobe florence on 03-04-2025 pH (U) 8.0 [pH] 5.0 - 8.0 [facility] Urine sediment bacteria coun t by microscopy (number/high power field)Ordered By: Kobe Pisano on 03-04-2025 Bacteria LM.HPF (Urine sed) [#/Area] 0 /[HPF] None Seen [facility] Urine specific gravity measu rementOrdered By: Kobe Pisano on 03-04-2025 Specific gravity (U) [Rel density] 1.015 1.002-1.030 [facility] Urine urobilinogen measureme ntOrdered By: Kobe Pisano on 03-04-2025 Urobilinogen Ql (U) Normal mg/dl Normal [facility] White blood cell (WBC) count Ordered By: Kobe Pisano on 03-04-2025 WBC (Bld) [#/Vol] 7.8 10*3/uL 4.4-11.0 [facility] White blood cell countOrdere d By: Kobe Pisano on 03-04-2025 White blood cell count 0 SEEN /hpf 0-5 [facility] CNPNon 02-08-2025 [facility] Telephone ([id number]) JESSICA BARR ([id number]) 1 M Date Time Provider Department 02/[facility] During [facility] today, we recorded the following information about you: [place] Aura Mcguire 02/08/2025 2:23 PM Signed ----- [...] which facility was the patient seen at: [facility] Was an appointment scheduled (Y/N): N Person calling if other than patient: N Return call to if other than patient: N Best contact number: [phone] Thank you, Eliza February 08, 2025 10:20 AM Aura Grewal 02/13/2025 2:08 PM Signed Left message to [...] alcohol consumption [Z87.898] 03/03/2024 Encounter Status:Closed by AURA GREWAL on 02/13/25 [facility] ALLIED HEALTHon 02-07-2025 ALLIED HEALTH HNO ID: [id number] Author: ANGELO RAMAN RT(R) Service: Radiology Author [...] PATIENT PRESENTS WITH AN IMPLANTABLE OR ATTACHED FORENSIC SERGEANT: No RADIOLOGY DEPARTMENT: General X-ray: Exam(s) Completed: Upper Extremity X-Ray(s): Elbow, left PERIPHERAL IV DATA: Not applicable SIGNED BY: RT Earl(R) February 07, 2025 7:44 AM [facility] ED NOTEon 02-07-2025 ED NOTE HNO ID: [id number] Author: KAM WINKLER RN Service: Emergency Medicine [...] instructions. SIGNATURE: Kam Winkler RN PATIENT NAME: eJssica Barr DATE: February 08, 2025 TIME: 10:09 AM [facility] ED NOTE HNO ID: [id number] Author: MILY MUNSON RN Service: Emergency Medicine Author Type: Registered Nurse Type: ED Notes Filed: 02/07/2025 08:41 Note Text: Pt verbalized understanding of home going instructions. [facility] ED NOTE HNO ID: [id number] Author: MEHAL, MILY, RN Service: Emergency Medicine Author Type: Registered Nurse Type: ED Notes Filed: 02/07/2025 07:23 Note Text: Pt c/o several weeks of numbness/tingling of left arm. Denies injury to left arm or neck. Progress Man equal and firm. Equal pulses present. Normal [facility] ED PROV NOTEon 02-07-2025 ED PROV NOTE HNO ID: [id number] Author: GIRMA BOYD DO Service: Emergency Medicine [...] Grandmother - Coronary Artery Disease Maternal Grandfather CT - Coronary Artery Disease Paternal Grandfather CT - Breast Cancer Other Social History Tobacco [...] motion of the elbow shoulder and wrist. Inpatient Care Manager Rn strength intact. Intrinsic muscles of the hand [...] injuries all (more content not included)... Normal [facility] XR ELBOW 2V AP/LAT LTon XR ELBOW 2V AP/LAT LT * * [...] erosion. Joint spaces are maintained. IMPRESSION: Unremarkable. Family Resource Specialist: PSCB Transcribe Date/Time: Feb 07 2025 7:53A Dictated by : SHASHA HOUSE MD This examination was interpreted and the report reviewed and electronically signed by: SHASHA HOUSE MD on Feb 07 2025 7:54AM EST [id number] Normal [facility] Emergency Department Summary on 01-29-2025 Emergency Department Summary [facility] Medical Records Department [address] [place] [address] Emergency Department Summary 01/29/25 MR#: [id number] Acct: [id number] Name: JESSICA BARR Rep #: [id number] : 2005 19 From: Lupillo Alvarado MD PCP: Mitali Mosher NP-C Status:REG ER Location: ED HPI HPI - [...] symptoms: No Recent Illness/Hospitalizatio n: No PFSH PFS Medical History Depression Anxiety Home Medications ???Medication [...] oriented x3 and CN's II-XII intact bilaterally [place] Coma Scale: document GCS findings Spontaneous Obeys Commands Oriented (more content not included)... Normal [facility] 36on 10-18-2024 36 Pt seen in ED [...] a reminder for OPTIONAL repeat imaging. Normal [place] [facility] XR WRIST MINIMUM [address] [facility] 08-11-2024 XR WRIST MINIMUM 3 VIEWS RIGHT [...] Date: 08/11/2024 3:52:26 PM Ordering Provider: DARREN CRONNI Normal [facility] Culture, Blood (WB)on 2023 CUB Blood cultures x2 fr om two different sites No growth in 5 days. Normal [facility] Comment on above: Performed By: #### M 200.1000 #### [facility] [address] [place], [address] CBC W/Diff, Automatedon 05-09 PATH REV Reviewed Normal [facility] Comment on above: Result Comment: Neut rophilic left shift. Thrombocytosis. Clinical correlation necessary. Casimiro Wynn M.D. 06/02/24 AMENDED REPORT 06/02/24 1410 PATH REV previously reported as: January foll Performed By: #### L 100.0100 #### [facility] [address] [place], [address] PATH REV Reviewed Normal [facility] Comment on above: Result Comment: Neut rophilic leukocytosis. Normocytic anemia. Thrombocytosis. Clinical correlation necessary. Casimiro Wynn M.D. 06/02/24 AMENDED REPORT 06/02/24 1407 PATH REV previously reported as: January Performed By: #### L 100.0100, L500.2500 ####[facility] [address] [place], [address] Basic Metabolic Profile (BMP )on 06-01-2024 BUN/CRE 24.5 RATIO High 10-20 [facility] Comment on above: Performed By: #### L 100.0100, L500.2500 ####[facility] [address] [place], [address] CA,Total 8.7 mg/dL Normal 8.5-10.1 [facility] Comment on above: Performed By: #### L 100.0100, L500.2500 ####[facility] [address] [place], [address] Chloride [Moles/Vol] 109 mmol/L High 98-107 [facility] Comment on above: Performed By: #### L 100.0100, L500.2500 ####[facility] [address] [place], [address] CO2 [Moles/Vol] 26.0 mmol/L Normal 21.0-32.0 [facility] Comment on above: Performed By: #### L 100.0100, L500.2500 ####[facility] [address] [place], [address] Creatinine [Mass/Vol] 0.70 mg/dL Normal 0.70-1.30 [facility] Comment on above: Result Comment: The validity of the calculated GFR GFRAA in patients over 70 years has not been determined. Clinical correlation is essential. Performed By: #### L 100.0100, L500.2500 ####[facility] [address] [place], [address] ECRCL 166.93 ml/min Normal [facility] Comment on above: Performed By: #### L 100.0100, L500.2500 ####[facility] [address] [place], [address] EST GFR - AA 184 mL/min Normal >60 [facility] Comment on above: Result Comment: Afri can [place] Citizen GFR Calc Performed By: #### L 100.0100, L500.2500 ####[facility] [address] [place], [address] GAP 5 Normal 5-15 [facility] Comment on above: Performed By: #### L 100.0100, L500.2500 ####[facility] [address] [place], [address] GFR/1.73 sq M.predicted among non-blacks MDRD (S/P/Bld) [Vol rate/Area] 152 mL/min/{1.73_m2} Normal >60 [facility] Comment on above: Result Comment: Non- GFR Calc Performed By: #### L 100.0100, L500.2500 ####[facility] [address] [place], [address] Glucose [Mass/Vol] 114 mg/dL High 74-106 [facility] Comment on above: Result Comment: Fast ing Glucose result from 100 to 125 mg/dL suggests IMPAIRED HOMEOSTASIS per A.D.A. criteria. Performed By: #### L 100.0100, L500.2500 ####[facility] [address] [place], [address] Potassium [Moles/Vol] 4.3 mmol/L Normal 3.5-5.1 [facility] Comment on above: Performed By: #### L 100.0100, L500.2500 ####[facility] [address] [place], [address] Sodium [Moles/Vol] 140 mmol/L Normal 136-145 [facility] Comment on above: Performed By: #### L 100.0100, L500.2500 ####[facility] [address] [place], [address] Urea nitrogen [Mass/Vol] 17 mg/dL Normal 7-18 [facility] Comment on above: Performed By: #### L 100.0100, L500.2500 ####[facility] [address] [place], [address] Culture, Throaton 06-01-2024 CUT Normal throat mary isolated. No beta-hemolytic streptococcus isolated. Normal [facility] Comment on above: Performed By: #### M 100.1000 ####[facility] [address] [place], [address] Soft Tissue Neck WITH Contra ston 06-01-2024 Soft Tissue Neck WITH Contrast [facility] Imaging Services [address] [place] [address] Soft Tissue Neck WITH Contrast MR#: [id number] Acct: [id number] Name: JESSICA BARR Rep #: [id number] : 2005 M 19 From: Servando addison MD PCP: Care Physician,No Primary Status: ADM IN Study: Soft Tissue Neck WITH Contrast Date of Exam: 0 06/01/24 Exam# [id number] Ordering Dr: Yuriy Ding [place] [id number] STUDY: CT SOFT TISSUE NECK WITH CONTRAST [...] FINDINGS: Normal bilateral parotid glands. Normal bilateral bag bleacher spaces. Normal bilateral parapharyngeal spaces. Normal bilateral [...] Signed: Servando Felix MD at 8:30 EDT , CC: Dr. Yuriy Ding MD; No Primary Care Physician Family Resource Specialist: Signed Normal [facility] Basic Metabolic Profile (BMP )on 05-31-2024 BUN/CRE 19.6 RATIO Normal 10-20 [facility] Comment on above: Performed By: #### L 500.2500, L100.0100 ####[facility] [address] [place], [address] CA,Total 9.1 mg/dL Normal 8.5-10.1 [facility] Comment on above: Performed By: #### L 500.2500, L100.0100 ####[facility] [address] [place], [address] Chloride [Moles/Vol] 105 mmol/L Normal 98-107 [facility] Comment on above: Performed By: #### L 500.2500, L100.0100 ####[facility] [address] [place], [address] CO2 [Moles/Vol] 25.0 mmol/L Normal 21.0-32.0 [facility] Comment on above: Performed By: #### L 500.2500, L100.0100 ####[facility] [address] [place], [address] Creatinine [Mass/Vol] 0.61 mg/dL Low 0.70-1.30 [facility] Comment on above: Result Comment: The validity of the calculated GFR GFRAA in patients over 70 years has not been determined. Clinical correlation is essential. Performed By: #### L 500.2500, L100.0100 ####[facility] [address] [place], [address] ECRCL 191.56 ml/min Normal [facility] Comment on above: Performed By: #### L 500.2500, L100.0100 ####[facility] [address] [place], [address] EST GFR - AA 213 mL/min Normal >60 [facility] Comment on above: Result Comment: Afri can [place] Citizen GFR Calc Performed By: #### L 500.2500, L100.0100 ####[facility] [address] [place], [address] GAP 5 Normal 5-15 [facility] Comment on above: Performed By: #### L 500.2500, L100.0100 ####[facility] [address] [place], [address] GFR/1.73 sq M.predicted among non-blacks MDRD (S/P/Bld) [Vol rate/Area] 176 mL/min/{1.73_m2} Normal >60 [facility] Comment on above: Result Comment: Non- GFR Calc Performed By: #### L 500.2500, L100.0100 ####[facility] [address] [place], [address] Glucose [Mass/Vol] 151 mg/dL High 74-106 [facility] Comment on above: Result Comment: Fast ing Glucose result greater than or equal to 126 mg/dL suggests DIABETES MELLITUS per A.D.A. criteria. Performed By: #### L 500.2500, L100.0100 ####[facility] [address] [place], [address] Potassium [Moles/Vol] 4.2 mmol/L Normal 3.5-5.1 [facility] Comment on above: Performed By: #### L 500.2500, L100.0100 ####[facility] [address] [place], [address] Sodium [Moles/Vol] 135 mmol/L Low 136-145 [facility] Comment on above: Performed By: #### L 500.2500, L100.0100 ####[facility] [address] [place], [address] Urea nitrogen [Mass/Vol] 12 mg/dL Normal 7-18 [facility] Comment on above: Performed By: #### L 500.2500, L100.0100 ####[facility] [address] [place], [address] CBC W/Diff, Automatedon 09-2 SMEAR COMMENT SCANNED Normal [facility] Comment on above: Result Comment: NEUT ROPHILLIA PRESENT Performed By: #### L 500.2500, L100.0100 ####[facility] [address] [place], [address] Basic Metabolic Profile (BMP )on 05-30-2024 BUN/CRE 17.7 RATIO Normal 10-20 [facility] Comment on above: Performed By: #### L 500.2500, L100.0100, L500.3400 ####[facility] [address] [place], [address] CA,Total 9.6 mg/dL Normal 8.5-10.1 [facility] Comment on above: Performed By: #### L 500.2500, L100.0100, L500.3400 ####[facility] [address] [place], [address] Chloride [Moles/Vol] 104 mmol/L Normal 98-107 [facility] Comment on above: Performed By: #### L 500.2500, L100.0100, L500.3400 ####[facility] [address] [place], [address] CO2 [Moles/Vol] 27.0 mmol/L Normal 21.0-32.0 [facility] Comment on above: Performed By: #### L 500.2500, L100.0100, L500.3400 ####[facility] [address] [place], [address] Creatinine [Mass/Vol] 0.74 mg/dL Normal 0.70-1.30 [facility] Comment on above: Result Comment: The validity of the calculated GFR GFRAA in patients over 70 years has not been determined. Clinical correlation is essential. Performed By: #### L 500.2500, L100.0100, L500.3400 ####[facility] [address] [place], [address] ECRCL 157.91 ml/min Normal [facility] Comment on above: Performed By: #### L 500.2500, L100.0100, L500.3400 ####[facility] [address] [place], [address] EST GFR - AA 173 mL/min Normal >60 [facility] Comment on above: Result Comment: Afri can [place] Citizen GFR Calc Performed By: #### L 500.2500, L100.0100, L500.3400 ####[facility] [address] [place], [address] GAP 7 Normal 5-15 [facility] Comment on above: Performed By: #### L 500.2500, L100.0100, L500.3400 ####[facility] [address] [place], [address] GFR/1.73 sq M.predicted among non-blacks MDRD (S/P/Bld) [Vol rate/Area] 143 mL/min/{1.73_m2} Normal >60 [facility] Comment on above: Result Comment: Non- GFR Calc Performed By: #### L 500.2500, L100.0100, L500.3400 ####[facility] [address] [place], [address] Glucose [Mass/Vol] 122 mg/dL High 74-106 [facility] Comment on above: Result Comment: Fast ing Glucose result from 100 to 125 mg/dL suggests IMPAIRED HOMEOSTASIS per A.D.A. criteria. Performed By: #### L 500.2500, L100.0100, L500.3400 ####[facility] [address] [place], [address] Potassium [Moles/Vol] 4.2 mmol/L Normal 3.5-5.1 [facility] Comment on above: Performed By: #### L 500.2500, L100.0100, L500.3400 ####[facility] [address] [place], [address] Sodium [Moles/Vol] 138 mmol/L Normal 136-145 [facility] Comment on above: Performed By: #### L 500.2500, L100.0100, L500.3400 ####[facility] [address] [place], [address] Urea nitrogen [Mass/Vol] 13 mg/dL Normal 7-18 [facility] Comment on above: Performed By: #### L 500.2500, L100.0100, L500.3400 ####[facility] [address] [place], [address] CBC W/Diff, Automatedon 05-09 SMEAR COMMENT COMMENT Normal [facility] Comment on above: Result Comment: NEUT ROPHILIA. Performed By: #### L 500.2500, L100.0100, L500.3400 ####[facility] [address] [place], [address] Emergency Department Summary on 05-30-2024 Emergency Department Summary [facility] Medical Records Department [address] [place] [address] Emergency Department Summary 05/30/24 MR#: [id number] Acct: [id number] Name: JESSICA BARR Rep #: [id number] : 2005 19 From: Gerhard Maldonado DO [...] not included)... Normal [facility]P Exam - Hospitalist [facility] Medical Records Department [address] [place] [address] H P Exam - Hospitalist 05/30/24 1724 MR#: [id number] Acct: [id number] Name: JESSICA BARR Rep #: [id number] : 2005 19 From: Felecia Roland MD PCP: Care Physician,No Primary Status:ADM IN Location: ICU ICU10-1 HPI - General General Date of Admission: 05/30/24 Date of Service: 05/30/24 Chief Complaint: Right sided neck pain and swelling HPI Narrative JESSICA BARR, is a 19 M with history of tobacco use presented to [facility] ED with right neck pain and swelling. [...] fevers or other new or acute complaints PFSH Home Medications ???Medication ???Instructions ???Recorded ???Last [...] 90.2 H, Lymph % (Auto) 3.9 L, [place] % (Auto) 4.5, Eos % (Auto) 0.0, [...] not included)... Normal [facility] Liver Profileon 05-30-2024 Albumin [Mass/Vol] 3.5 g/dL Normal 3.2-5.0 [facility] Comment on above: Performed By: #### L 500.2500, L100.0100, L500.3400 ####[facility] [address] [place], [address] ALK P 94 U/L Normal 45-117 [facility] Comment on above: Performed By: #### L 500.2500, L100.0100, L500.3400 ####[facility] [address] [place], [address] ALT [Catalytic activity/Vol] 15 U/L Low 16-61 [facility] Comment on above: Performed By: #### L 500.2500, L100.0100, L500.3400 ####[facility] [address] [place], [address] AST [Catalytic activity/Vol] 9 U/L Low 15-37 [facility] Comment on above: Performed By: #### L 500.2500, L100.0100, L500.3400 ####[facility] [address] [place], [address] Bilirubin [Mass/Vol] 0.50 mg/dL Normal 0.20-1.00 [facility] Comment on above: Result Comment: For patients on eltrombopag therapy, use of Dimension [place] TBIL is not recommended. Performed By: #### L 500.2500, L100.0100, L500.3400 ####[facility] [address] [place], [address] Bilirubin.direct [Mass/Vol] 0.17 mg/dL Normal 0.00-0.30 [facility] Comment on above: Performed By: #### L 500.2500, L100.0100, L500.3400 ####[facility] [address] [place], [address] Globulin (S) [Mass/Vol] 4.4 g/dL High 2.2-4.2 [facility] Comment on above: Performed By: #### L 500.2500, L100.0100, L500.3400 ####[facility] [address] [place], [address] T PROT 7.9 g/dL Normal 6.4-8.2 [facility] Comment on above: Performed By: #### L 500.2500, L100.0100, L500.3400 ####[facility] [address] [place], [address] Operative Reporton 4 Operative Report [facility] Medical Records Department [address] [place] [address] Operative Report 05/30/24 1531 MR#: [id number] Acct: [id number] Name: JESSICA BARR Rep #: [id number] : 2005 19 From: Yuriy Ding MD [...] Physician Signed Normal [facility] Soft Tissue Neck WITH Contra ston 05-30-2024 Soft Tissue Neck WITH Contrast [facility] Imaging Services [address] [place] [address] Soft Tissue Neck WITH Contrast MR#: [id number] Acct: [id number] Name: JESSICA BARR Rep #: [id number] : 2005 M 19 From: Servando addison MD PCP: Care Physician,No Primary Status: REG ER Study: Soft Tissue Neck WITH Contrast Date of Exam: 0 05/30/24 Exam# [id number] Ordering Dr: Gerhard Maldonado DO [id number] STUDY: CT SOFT TISSUE NECK WITH CONTRAST [...] FINDINGS: Normal bilateral parotid glands. Normal bilateral bag bleacher spaces. Normal bilateral parapharyngeal spaces. Normal bilateral [...] Gerhard Maldonado, DO; No Primary Care Physician Family Resource Specialist: Signed Normal [facility] Emergency Department Summary on 05-27-2024 Emergency Department Summary [facility] Medical Records Department [address] [place] [address] Emergency Department Summary 05/27/24 MR#: [id number] Acct: [id number] Name: JESSICA BARR Irina Rep #: [id number] : 2005 19 From: Jacques Paul MD [...] not included)... Normal [facility] CBC W/Diff, Automatedon 05-08 PATH REV Reviewed Normal [facility] Comment on above: Result Comment: Neut rophilic leukocytosis. Clinical correlation necessary. Casimiro Wynn M.D. 05/26/24 AMENDED REPORT 05/26/24 1506 PATH REV previously reported as: January Performed By: #### L 700.5500, L100.0100 #### [facility] Laboratory [facility] [place], [address] Emergency Department Summary on 05-25-2024 Emergency Department Summary [facility] Medical Records Department [address] [place] [address] Emergency Department Summary 05/25/24 MR#: [id number] Acct: [id number] Name: JESSICA BARR Rep #: [id number] : 2005 19 From: Lupillo Alvarado MD [...] not included)... Normal [facility] Mon[place]eston 05-25-2024 Monocytes (Bld) [#/Vol] Positive Abnormal Negative [facility] Comment on above: Performed By: #### L 700.5500, L100.0100 #### [facility] Laboratory [address] [place], [address] Neck for Soft Tissueon 05-25 Neck for Soft Tissue [facility] Imaging Services [address] [place], [place] [address] Neck for Soft Tissue MR#: [id number] Acct: [id number] Name: JESSICA BARR Rep #: [id number] : 2005 M 19 From: Servando addison MD PCP: Care Physician,No Primary Status: REG ER Study: Neck for Soft Tissue Date of Exam: 05/25/24 Exam# [id number] Ordering Dr: Lupillo Alvarado [place] [id number] STUDY: X-RAY - SOFT TISSUE NECK REASON [...] Lupillo Alvarado MD; No Primary Care Physician Family Resource Specialist: Signed [facility] CNOVon 05-13-2024 CNOV Office Visit ([facility] ) MIKERABIAJESSICA BARNETT ([id number]) 1 M Date Time Provider Department 05/13/24 12:15 PM IVONNE COOPER [facility] During your visit today, we recorded the following information about you: Temperature Pulse Respiration Blood pressure 99 degrees 111/minute 20/minute 115/76 Weight 79 kg Ivonne Cooper APRN.DIRECTOR MEDICAID 05/13/2024 12:37 PM Signed Subjective Fever Associated symptoms include headaches and sore throat. Pertinent negatives include no chest pain, no diarrhea, no vomiting, no congestion and no cough. Jessica Irina Barr is a 19 year old male [...] Maternal Grandmother Coronary Artery Disease Maternal Grandfather CT Coronary Artery Disease Paternal Grandfather CT Breast Cancer Other Social History Tobacco Use [...] analgesia. - Discussed expected course of illness STAR Patiño Kathy, APRN.CNP 05/13/2024 12:37 PM Signed ASSESSMENT/PLAN: 1. [...] care wit (more content not included)... Normal [facility] COVID AND INFLUENZA A/B AND RSV PCR, ROUTINEon 05-13-2024 SARS-CoV-2 (COVID-19) RNA TRAY+probe Ql (Unsp spec) SARS-COV-2 (AGENT OF COVID-19) RNA: Not detected INFLUENZA A RNA: Not detected INFLUENZA B RNA: Not detected RESPIRATORY SYNCYTIAL VIRUS (RSV) RNA: Not detected Normal [facility] Comment on above: Performed By: #### C VFLRS ####[facility] LABCLIA [id number] [place] [address] [place] STREP A MOLECULAR (POC)on Procedural Control Valid [facility] Strep A (POCT) Negative Negative [facility] CNOVon 04-26-2024 [facility] JESSICA BARR ([id number]) 1 M Date Time Provider Department 04/26/24 2:15 PM [facility]OWN [facility] During your visit today, we recorded the following information about you: Temperature Pulse Respiration Blood pressure 98.5 degrees 85/minute 20/minute 129/89 Weight 78 kg Lul Brown, GUN STOCK MAKER.DIRECTOR MEDICAID 04/26/2024 2:14 PM Signed Subjective HPI Nontoxic-appearing [...] Maternal Grandmother Coronary Artery Disease Maternal Grandfather CT Coronary Artery Disease Paternal Grandfather CT Breast Cancer Other Social History Tobacco Use [...] for discharge (more content not included)... Normal [facility] CNOVon 03-18-2024 CNOV Office Visit ([facility] ) JESSICA BARR ([id number]) 1 M Date Time Provider Department 03/18/24 1:15 PM LAVERNE ZAMBRANO [facility] During your visit today, we recorded the following information about you: Temperature Pulse Respiration Blood pressure 97.1 degrees 78/minute 16/minute 128/68 Weight 79 kg Laverne Zambrano APRN.DIRECTOR MEDICAID 03/18/2024 2:15 PM Signed Subjective HPI HPI Jessica Arevalo [place] is a 18 year old male who [...] Maternal Grandmother Coronary Artery Disease Maternal Grandfather CT Coronary Artery Disease Paternal Grandfather CT Breast Cancer Other Social History Tobacco Use [...] HENT: Head: Normocephalic and atraumatic. Mouth/Throat: Lips: [place]. Mouth: Mucous membranes are moist. Pharynx: Uvula [...] - STREP A MOLECULAR (POC) Laverne Zambrano APRN.DIRECTOR MEDICAID Allergies As of Date: 03/18/2024 (No Known Allergies) Date Reviewed: 03/18/2024 Reviewed by: Kimberly Jackson - Fully Assessed Reason for Visit: Sore Throat [200] Cmt: Cough x2 mths Primary Visit Diagnosis:Subacute cough [R05.2] Other Visit Diagnosis:Sore throat [J02.9] Order(s):STREP A MOLECULAR (POC) [4363060] Order #: [id number]. #:[id number] XR CHEST 2V FRONTAL/LAT [[id number]] Order #: [id number]. #:[id number] predniSONE (DELTASONE) 20 mg tabletTake 2 tablets [...] Status:Closed by LAVERNE ZAMBRANO on 03/18/24 Normal [facility] STREP A MOLECULAR (POC)on Procedural Control Valid [facility] Strep A (POCT) Negative Negative [facility] XR CHEST 2V FRONTAL/LATon XR CHEST 2V FRONTAL/LAT * * *Final Repor t* * * DATE OF EXAM: Mar 18 [...] tissues: Unremarkable. IMPRESSION: No acute radiographic abnormality. Family Resource Specialist: ISAAC Transcribe Date/Time: Mar 18 2024 1:26P Dictated by : ISELA GARCÍA MD This examination was interpreted and the report reviewed and electronically signed by: ISELA GARCÍA MD on Mar 18 2024 1:26PM EST [id number] Normal [facility] XR Chest PA and Lateralon IMPRESSION: No acute radiographic abnormality. Family Resource Specialist: PSC Transcribe Date/Time: Mar 18 2024 1:26P Dictated by : ISELA GARCÍA MD This examination was interpreted and the report reviewed and electronically signed by: ISELA GARCÍA MD on Mar 18 2024 1:26PM EST DIVISION OF RADIOLOGY * * *Final Report* [...] soft tissues: Unremarkable. DIVISION OF RADIOLOGY Provider, [facility] - 03/18/2024 * * *Final Report* * [...] Unremarkable. IMPRESSION IMPRESSION: No acute radiographic abnormality. Family Resource Specialist: PSCB Transcribe Date/Time: Mar 18 2024 1:26P Dictated by : ISELA GARCÍA MD This examination was interpreted and the report reviewed and electronically signed by: ISELA GARCÍA MD on Mar 18 2024 1:26PM EST [facility] Radiology [facility]narrative) [facility] Chest PA and LateralOrder ed By: Ccf Provider on 03-18-2024 [facility] CNOVon 03-03-2024 CNOV Office Visit ([facility] ) JESSICA BARR ([id number]) 1 M Date Time Provider Department 03/03/24 2:20 PM PRAKASH ZHAO [facility] During your visit today, we recorded the following information about you: Temperature Pulse Respiration Blood pressure 98.6 degrees 84/minute 18/minute 122/74 Weight 78.5 kg Prakash Zhao MD 03/03/2024 3:38 PM Signed This note was created using Immediatelyriter. Subjective Jessica Arevalo Mikedav is a 18 year old male. He [...] Prakash Zhao MD Referring Provider: PRAKASH ZHAO [[id number]] Allergies As of Date: 03/03/2024 (No Known Allergies) Date Reviewed: 03/03/2024 Reviewed by: Myrna Vick LPN - Fully Assessed Reason for Visit: Discussion [813] Primary Visit Diagnosis:Tobacco use disorder [F17.200] Other Visit Diagnosis:History of heavy alcohol consumption [Z87.898] Order(s):buPROPion XL (WELLBUTRIN XL) 150 mg 24 hr tabletTake 1 tablet by mouth once daily.Disp: 30 tabletRfl: 0 BEHAVIORAL HEALTH SCREENING [2602752] Order #: [id number]: 1 Prescriptions as of 03/03/2024 - buPROPion [...] for Encounter Date Provider Department Center 03/03/2024 [id number]-BIAFCZIGVPRAKASH ZHAO INTWS [facility] Leonor Encounter Status:Closed by PRAKASH ZHAO on 03/03/24 [facility] CNOVon 02-29-2024 CNOV Office Visit ([facility] ) JESSICA BARR ([id number]) 1 M Date Time Provider Department 02/29/24 11:30 AM MIRIAM WATSON [facility] During your visit today, we recorded the following information about you: Temperature Pulse Respiration Blood pressure 97.5 degrees 88/minute 16/minute 122/70 Weight 79.3 kg Miriam Watson PA-C 02/29/2024 11:[address] Zhao follow up for smoking cessation Dayquil/Nyquil otc for cold symptoms If not better inocarlitos chow e sen again Miriam Watson PA-C 02/29/2024 12:41 PM Signed This note was created using Immediatelyriter. Subjective Jessica Barr is a 18 year [...] Maternal Grandmother Coronary Artery Disease Maternal Grandfather CT Coronary Artery Disease Paternal Grandfather CT Breast Cancer Other Social History Tobacco Use [...] Diagnosis:Viral illness [B34.9] Order(s):STREP A MOLECULAR (POC) [[id number]] Order #: [id number]. #:[id number] Prescriptions as of 02/29/2024 - miconazole (LOTRIMIN [...] Status:Closed by MIRIAM WATSON on 02/29/24 Normal [facility] STREP A MOLECULAR (POC)on Procedural Control Valid [facility] Strep A (POCT) Negative Negative [facility] CNOVon 01-29-2024 CNOV Office Visit ([facility] ) JESSICA BARR ([id number]) 1 M Date Time Provider Department 01/29/24 8:30 AM IVONNE COOPER [facility] During your visit today, we recorded the following information about you: Temperature Pulse Respiration Blood pressure 98 degrees 75/minute 18/minute 149/64 Weight 77.8 kg Ivonne Cooper APRN.CNP 01/29/2024 8:48 AM Signed ASSESSMENT/PLAN: 1. Tinea [...] when possible. To treat ahtlete?s foot, use tybe-pvg-ysxeoej medicated foot powder or cream such as [...] after one week of treatment. Ivonne Cooper APRN.[facility] 01/29/2024 8:56 AM Signed Subjective Pain (foot) [...] Maternal Grandmother Coronary Artery Disease Maternal Grandfather CT Coronary Artery Disease Paternal Grandfather CT Breast Cancer Other Social History Tobacco Use [...] Discussed expected course of illness Ivonne Cooper APRN.DIRECTOR MEDICAID Allergies As of D (more content not included)... Normal [facility] .Auto Diffon 03-11-2023 Basophil, Absolute 0.0 10 3/mcL Normal 0.0-0.2 [facility] ([place]) Comment on above: Performed By: #### C MP, CBC, GFR, ANEU, ADKRISTY MERRILL MDW #### [address] [address] Basophils/100 WBC (Bld) 0.7 % Normal 0.0-2.5 [facility] ([place]) Comment on above: Performed By: #### C MP, CBC, GFR, ANEU, ADKRISTY MERRILL MDW #### [address] [address] Eosinophil, Absolute 0.2 10 3/mcL Normal 0.0-0.4 [facility] ([place]) Comment on above: Performed By: #### C MP, CBC, GFR, ANEU, ADKRISTY MERRILL MDW #### [address] [address] Eosinophils/100 WBC (Bld) 3.9 % Normal 0.0-7.0 [facility] ([place]) Comment on above: Performed By: #### C MP, CBC, GFR, ANEU, ADKRISTY MERRILL MDW #### [address] [address] Lymphocyte, Absolute 1.1 10 3/mcL Normal 0.8-3.9 [facility] ([place]) Comment on above: Performed By: #### C MP, CBC, GFR, ANEU, ADIFF, LIP, LEANNE #### [address] [address] Lymphocytes/100 WBC (Bld) 18.7 % Normal 10.0-50.0 [facility] ([place]) Comment on above: Performed By: #### C MP, CBC, GFR, ANEU, ADIFF, LIP, W #### [address] [address] Monocyte, Absolute 0.8 10 3/mcL Normal 0.2-1.0 [facility] ([place] Comment on above: Performed By: #### C MP, CBC, GFR, ANEU, ADIFF, KRISTY, LEANNE #### [address] [address] Monocytes/100 WBC (Bld) 14.2 % High 1.7-13.0 [facility] Comment on above: Performed By: #### C MP, CBC, GFR, ANEU, ADIFF, LEANNE WAGNER #### [address] [address] Neutrophils/100 WBC (Bld) 62.5 % Normal 37.0-80.0 [facility] ([place]) Comment on above: Performed By: #### C MP, CBC, GFR, ANEU, ADIFF, LEANNE WAGNER #### [address] [address] .GFRon 03-11-2023 GFR 145 ml/min/1.73sqm Normal [facility] ([place]) Comment on above: Result Comment: GFR Population [...] C MP, CBC, GFR, ANEU, ADIFF, LIP, LEANNE #### [address] [address] GFR Non- 119 ml/min/1.73sqm Normal [facility] ([place] Comment on above: Result Comment: GFR Population [...] C MP, CBC, GFR, ANEU, ADIFF, LIP, LEANNE #### [address] [address] .MDWon 03-11-2023 Monocyte Distribution Width 18.08 Normal 0.00-20.00 [facility] ([place] Comment on above: Result Comment: For ED adult patients suspected of sepsis, MDW<=20.0 does not rule out sepsis or risk of sepsis Performed By: #### C MP, CBC, GFR, ANEU, ADIFF, LIPMDW #### [address] [address] .NEUABSon 03-11-2023 Neutrophil, Absolute 3.5 10 3/mcL Normal 2.9-6.2 [facility] ([place]) Comment on above: Performed By: #### C MP, CBC, GFR, ANEU, ADIFF, LIP, LEANNE #### [address] [address] CBCon 03-11-2023 Erythrocyte distribution width (RBC) [Ratio] 13.0 % Normal 11.5-14.5 [facility] ([place] Comment on above: Performed By: #### C MP, CBC, GFR, ANEU, ADIFF, KRISTY, W #### [place] [id number] Hematocrit (Bld) [Volume fraction] 42.1 % Normal 42.0-52.0 [facility] ([place] Comment on above: Performed By: #### C MP, CBC, GFR, ANEU, ADGARFIELD, LEANNE WAGNER #### [address] [address] Hgb 14.4 G/dL Normal 14.0-18.0 [facility] ([place] Comment on above: Performed By: #### C MP, CBC, GFR, ANEU, ADIFF, KRISTY, LEANNE #### [address] [address] MCH (RBC) [Entitic mass] 29.3 pg Normal 27.0-31.2 [facility] ([place] Comment on above: Performed By: #### C MP, CBC, GFR, ANEU, ADIFF, LEANNE WAGNER #### [address] [address] MCHC 34.2 G/dL Normal 31.8-35.4 [facility] ([place] Comment on above: Performed By: #### C MP, CBC, GFR, ANEU, ADIFF, KRISTY, W #### [address] [address] MCV (RBC) [Entitic vol] 85.7 fL Normal 80.0-94.0 [facility] [place] Comment on above: Performed By: #### C MP, CBC, GFR, ANEU, ADIFF, LIP, W #### [address] [address] Platelet 322 10 3/mcL Normal 130-400 [facility] ([place] Comment on above: Performed By: #### C MP, CBC, GFR, ANEU, ADIFFKRISTY MDW #### [address] [address] Platelet mean volume (Bld) [Entitic vol] 7.3 fL Low 7.4-10.4 [facility] ([place] Comment on above: Performed By: #### C MP, CBC, GFR, ANEU, ADIFF, LEANNE WAGNER #### [address] [address] RBC 4.92 10 6/mcL Normal 4.04-6.13 [facility] ([place] Comment on above: Performed By: #### C MP, CBC, GFR, ANEU, ADIFF, LEANNE WAGNER #### [address] [address] WBC 5.6 10 3/mcL Normal 4.6-10.8 [facility] ([place] Comment on above: Performed By: #### C MP, CBC, GFR, ANEU, ADIFF, LEANNE WAGNER #### [address] [address] CMPon 03-11-2023 Albumin Level 4.2 G/dL Normal 3.5-5.0 [facility] ([place] Comment on above: Performed By: #### C MP, CBC, GFR, ANEU, ADGARFIELD, LEANNE WAGNER #### [address] [address] Albumin/Globulin [Mass ratio] 1.6 {ratio} Normal 1.1-2.5 [facility]) Comment on above: Performed By: #### C MP, CBC, GFR, ANEU, ADKRISTY MERRILL MDW #### [address] [address] ALP [Catalytic activity/Vol] 91 U/L Normal 40-135 [facility] ([place] Comment on above: Performed By: #### C MP, CBC, GFR, ANEU, ADIFF, LEANNE WAGNER #### [address] [address] ALT [Catalytic activity/Vol] 23 U/L Normal 16-63 [facility] ([place] Comment on above: Performed By: #### C MP, CBC, GFR, ANEU, ADKRISTY MERRILL MDW #### [address] [address] AST [Catalytic activity/Vol] 17 U/L Normal 10-40 [facility] ([place] Comment on above: Performed By: #### C MP, CBC, GFR, ANEU, ADKRISTY MERRILL MDW #### [address] [address] Bili Total 0.6 mg/dL Normal 0.2-1.0 [facility] ([place] Comment on above: Result Comment: Use of this assay is not recommended for patients undergoing treatment with eltrombopag due to the potential for falsely elevated results. Performed By: #### C MP, CBC, GFR, ANEU, KRISTY KIMBLE MDW #### [address] [address] BUN/Creatinine Ratio 13 ratio Normal 7-27 [facility] ([place] Comment on above: Performed By: #### C MP, CBC, GFR, ANEU, KRISTY KIMBLE MDW #### [address] [address] Calcium [Mass/Vol] 9.3 mg/dL Normal 8.4-10.2 [facility] ([place] Comment on above: Performed By: #### C MP, CBC, GFR, ANEU, ADKRISTY MERRILL MDW #### [address] [address] Chloride [Moles/Vol] 104 mmol/L Normal 98-107 [facility] ([place] Comment on above: Performed By: #### C MP, CBC, GFR, ANEU, ADKRISTY MERRILL MDW #### [address] [address] CO2 [Moles/Vol] 26 mmol/L Normal 22-29 [facility] ([place] Comment on above: Performed By: #### C MP, CBC, GFR, ANEU, ADIFF, KRISTY, LEANNE #### [address] [address] Creatinine [Mass/Vol] 0.83 mg/dL Normal 0.70-1.30 [facility] ([place]) Comment on above: Performed By: #### C MP, CBC, GFR, ANEU, ADIFF, KRISTY, LEANNE #### [address] [address] Electrolyte Balance 10.0 mEq/L Normal 4.0-15.0 [facility] ([place]) Comment on above: Performed By: #### C MP, CBC, GFR, ANEU, ADIFF, LEANNE WAGNER #### [address] [address] Globulin 2.6 G/dL Normal [facility] ([place] Comment on above: Performed By: #### C MP, CBC, GFR, ANEU, ADIFF, LEANNE WAGNER #### [address] [address] Glucose [Mass/Vol] 84 mg/dL Normal 70-105 [facility] ([place] Comment on above: Performed By: #### C MP, CBC, GFR, ANEU, ADIFF, LEANNE WAGNER #### [address] [address] Potassium [Moles/Vol] 4.1 mmol/L Normal 3.5-5.1 [facility] ([place] Comment on above: Performed By: #### C MP, CBC, GFR, ANEU, ADIFF, LEANNE WAGNER #### [address] [address] Sodium [Moles/Vol] 140 mmol/L Normal 136-145 [facility] ([place] Comment on above: Performed By: #### C MP, CBC, GFR, ANEU, ADIFF, LEANNE WAGNER #### [address] [address] Total Protein 6.8 G/dL Normal 6.4-8.2 [facility] ([place]) Comment on above: Performed By: #### C MP, CBC, GFR, ANEU, ADGARFIELD, KRISTY, LEANNE #### [address] [place], [place] [address] Urea nitrogen [Mass/Vol] 11 mg/dL Normal 7-18 [facility] ([place]) Comment on above: Performed By: #### C MP, CBC, GFR, ANEU, ADIFF, KRISTY, LEANNE #### [facility] [address] [place], [place] [address] LABORATORYOrdered By: SYSTEM SYSTEM on 03-11-2023 Albumin [...] 03-11-2023 Lipase Level 25 U/L Normal 16-77 [facility] ([place]) Comment on above: Performed By: #### C MP, CBC, GFR, ANEU, ADIFF, LIP, MDW #### [address] [address] [id number] 12-22-2022 SARS-CoV-2 (COVID-19) RNA TRAY+probe Ql (Unsp spec) Negative Normal Negative [facility] ([place]) Comment on above: Performed By: #### C OVD19, FLURSV #### [address] [address] SARS-CoV-2 (COVID-19) RNA TRAY+probe Ql (Unsp spec) Normal [facility] ([place]) Comment on above: Result Comment: Nega tive [...] or inadequate numbers of organisms for amplification. MALCOLM SARS-CoV-2 Assay is a Real-Time reverse-transcriptase polymerase [...] By: #### C OVD19, FLURSV #### [address] [place], [place] [address] DIMERon 12-22-2022 D-Dimer <200 Normal 0-230 [facility] ([place]) Comment on above: Result Comment: The result [...] (PE). Performed By: #### D BROOKS ####[address] [place], [place] [address] FLURSVon 12-22-2022 Flu A PCR (AO) Negative Normal Negative [facility] ([place]) Comment on above: Result Comment: Posi tive [...] REPEAT COLLECTION AND TESTING IS RECOMMENDED. The MycooN Flu A/B & RSV Assay is a real-time polymerase chain reaction (PCR) based qualitative in vitro diagnostic test for the direct detection and differentiation of influenza A virus, influenza B virus, and respiratory syncytial virus (RSV) nucleic acid in nasopharyngeal swab ([employer]) specimens from patients with signs and symptoms of respiratory infection in conjunction with clinical and laboratory findings. The test is intended for use as an aid in the differential diagnosis of influenza A virus, influenza B virus, and RSV in humans and is not intended to detect influenza C. Performed By: #### C OVD19, FLURSV ####[facility] [place], [place] [address] Flu B PCR (AO) Negative Normal Negative [facility] ([place] Comment on above: Result Comment: Posi tive [...] REPEAT COLLECTION AND TESTING IS RECOMMENDED. The Malcolm Flu A/B & RSV Assay is a real-time polymerase chain reaction (PCR) based qualitative in vitro diagnostic test for the direct detection and differentiation of influenza A virus, influenza B virus, and respiratory syncytial virus (RSV) nucleic acid in nasopharyngeal swab ([employer]) specimens from patients with signs and symptoms of respiratory infection in conjunction with clinical and laboratory findings. The test is intended for use as an aid in the differential diagnosis of influenza A virus, influenza B virus, and RSV in humans and is not intended to detect influenza C. Performed By: #### C OVD19, FLURSV ####[address] [place], [place] [address] RSV PCR (AO) Negative Normal Negative [facility] ([place] Comment on above: Result Comment: Posi tive [...] REPEAT COLLECTION AND TESTING IS RECOMMENDED. The MycooN Flu A/B & RSV Assay is a real-time polymerase chain reaction (PCR) based qualitative in vitro diagnostic test for the direct detection and differentiation of influenza A virus, influenza B virus, and respiratory syncytial virus (RSV) nucleic acid in nasopharyngeal swab ([employer]) specimens from patients with signs and symptoms of respiratory infection in conjunction with clinical and laboratory findings. The test is intended for use as an aid in the differential diagnosis of influenza A virus, influenza B virus, and RSV in humans and is not intended to detect influenza C. Performed By: #### C OVD19, FLURSV ####[address] [place], [place] [address] LABORATORYOrdered By: Catherine Bernal on 12-22-2022 Fibrin [...] specimens, or inadequate numbers of organisms for amplification.MALCOLM SARS-CoV-2 Assay is a Real-Time reverse-transcriptase polymerase [...] Date: 12/22/2022 2:43:59 PM Ordering Provider: MANGO [facility] ([place]) CR Forearm 2 Views Righton 1 CR Forearm 2 Views Right Patient Name: JESSICA BARR Diagnostic Radiology ACCESSION EXAM DATE/TIME PROCEDURE ORDERING PROVIDER [id number] 07/01/2022 23:56 EDT CR Forearm 2 Views Right [id number] KASEY MALLORY CPT code 24861 Reason For Exam (CR Forearm 2 Views [...] JASON Transcribed Date and Time: 07/02/2022 0:47 [facility] XR RADIUS ULNA RIGHT (2 VIEW S)on 07-02-2022 Patient Name: JESSICA BARR Diagnostic Radiology ACCESSION EXAM DATE/TIME PROCEDURE ORDERING PROVIDER [id number] 07/01/2022 23:56 EDT CR Forearm 2 Views Right [id number] -KASEY ERVIN CPT code 75302 Reason For Exam (CR Forearm 2 Views [...] JASON Transcribed Date and Time: 07/02/2022 0:47 [facility] RAD Israel Crews MD - 07/02/2022 [id number]iology ACCESSION EXAM DATE/TIME PROCEDURE ORDERING PROVIDER [id number] 07/01/2022 23:56 EDT CR Forearm 2 Views Right [id number] -KASEY ERVIN CPT code 49041 Reason For Exam (CR Forearm 2 Views [...] JASON Transcribed Date and Time: 07/02/2022 0:47 [facility] Work Phone: XR RADIUS ULNA RIGHT (2 VIEW S)Ordered By: Israel Crews on 07-02-2022 [facility] Work Phone: ED Provider Noteon 2 ED Provider Note [facility] EMERGENCY [facility]PT eMERGENCY dEPARTMENT eNCOUnter Pt Name: Jessica Barr Birthdate 2005 Date of evaluation: 07/01/2022 Provider: Omar Walls PA-C CHIEF COMPLAINT Chief Complaint Patient presents with Arm Injury PT FELL INTO [place] TODAY AND GOT CAST WET. PT HAD BROKEN R ARM W/ WOUND 2X WEEKS AGO. Patient seen independently with an Emergency Medicine attending available for supervision. HISTORY OF PRESENT ILLNESS (Location/Symptom, Timing/Onset,Context/S etting, Quality, Duration, Modifying Factors, Severity) Note limiting factors. HPI Jessica Barr is a 17 y.o. male who presents to the emergency department after [place] today. Patient states that he did [...] use: Yes Drug use: Yes Types: Marijuana (Russell) SCREENINGS PHYSICAL EXAM (up to 7 for [...] EXAM DATE/GAEL (more content not included)... Normal [facility] XR RADIUS ULNA RIGHT (2 VIEW S)on 07-01-2022 Radiology Study observation (narrative) [facility] Work Phone: CBC with Auto Differentialon 06-21-2022 Hematocrit (Bld) [Volume fraction] 39.0 % Low 40 - 52 % [facility] Hemoglobin (Bld) [Mass/Vol] 13.4 g/dL 13 - 18 g/dL [facility] Interpretation and review of laboratory results Abnormal [facility] MCH (RBC) [Entitic mass] 29.2 pg 26 - 34 pg [facility] MCHC (RBC) [Mass/Vol] 34.2 % 32 - 36 % [facility] MCV (RBC) [Entitic vol] 85.4 fL 80 - 98 fL S [facility] Platelet distribution width (Bld) [Ratio] 13.9 % 11.5 - 14.5 % [facility] Platelet mean volume (Bld) [Entitic vol] 7.6 fL 7.4 - 12.4 fL [facility] Comment on above: MPV is a calculated measurement using platelet volume ratio. Platelets (Bld) [#/Vol] 259 10*3/uL 140 - 440 10*3/uL [facility] RBC (Bld) [#/Vol] 4.57 10*6/uL 4.4 - 5.9 10*6/uL [facility] WBC (Bld) [#/Vol] 11.6 10*3/uL High 3.6 - 10.7 10*3/uL [facility] Test Performed by [facility], [address] [place] [id number] [place] [address] LAB [facility] COVID-19, Flu A/B, and RSV C omboon 06-21-2022 Influenza A by PCR Not detected [facility] A Influenza B by PCR Not detected [facility] A RSV PCR Not Detected. Expected Result: Not Detected _ Method: Real-time, RT-PCR This assay was developed by [employer] and distributed under an Emergency Use Authorization (EUA) granted by the FDA for the qualitative detection of nucleic acids from SARS-CoV-2, Influenza A, Influenza B, and Respiratory Syncytial Virus. Provider and patient fact sheets can be found at https://www.fda.gov/me handy/390466/download and https://www.fda.gov/id handy/883422/download. [facility] SARS-CoV-2 (COVID-19) RNA TRAY+probe Ql (Unsp spec) Not detected [facility] Test Performed by [address] [address] [facility] CR Chest Portableon 06-21-20 CR Chest Portable Patient Name: JESSICA BARR Diagnostic Radiology ACCESSION EXAM DATE/TIME PROCEDURE ORDERING PROVIDER [id number] 06/21/2022 18:58 EDT CR Chest Portable KAM ALFNOSO CPT code 40016 Reason For Exam (CR Chest Portable) weakness, [...] Transcribed Date and Time: 06/21/2022 6:35 Normal [facility] Comp Metabolic Panelon 06-21 ALP [Catalytic activity/Vol] 71 U/L Normal 38-126 [facility] Comment on above: Performed By: #### H KRISTA ADRIAN MDIFF #### [address] [address] ALT [Catalytic activity/Vol] 34 U/L Normal 0-49 [facility] Comment on above: Result Comment: The ALT test is performed by an updated assay method. Please note that the reference intervals have been changed and are now sex specific. Performed By: #### H KRISTA ADRIAN MDIFF #### [address] [place] [address] AST [Catalytic activity/Vol] 41 U/L Normal 15-46 [facility] Comment on above: Performed By: #### H KRISTA ADRIAN MDIFF #### [facility] [address] [place] [address] Calcium [Mass/Vol] 9.5 mg/dL Normal 8.4-10.4 [facility] Comment on above: Performed By: #### H KRISTA ADRIAN MDIFF #### [facility] [address] [place] [address] Glucose [Mass/Vol] 102 mg/dL High 70-100 [facility] Comment on above: Performed By: #### KRISTA SERRANO MDIFF #### [address] [place] [address] Protein [Mass/Vol] 7.4 g/dL Normal 6.3-8.2 [facility] Comment on above: Performed By: ####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 evaluation given that he has an open fracture right upper extremity. It is a transfer from [place]. I did speak with the [facility] physician who stated that he was worked [...] dictating provider for clarification. 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 : 2005 Requested By: KAM RAMIREZ Order Number: [id number] Reading : Trevor Wheeler Measurements Intervals Noble Rate: 71 P: 31 SD: 129 QRS: 64 QRSD: 105 T: 54 QT: 394 QTc: 400 Interpretive Statements Sinus rhythm Atrial premature complexes in couplets ST elev, probable normal early repol pattern Electronically Signed On 06-17-2022 5:48:33 EDT by Trevor Wheeler [facility] CARDIOLOGY Result, Unknown Provider - 06/17/2022 [facility] Test Date: 2022-06-17 Pat Name: [facility] Department: [facility] Room: 1P Gender: M Felt [employer] Flanging Operator: [facility] : 2005 Requested By: KAM RAMIREZ Order Number: [id number] Reading : Trevor Wheeler Measurements Intervals Noble Rate: 71 P: 31 SD: 129 QRS: 64 QRSD: 105 T: 54 QT: 394 QTc: 400 Interpretive Statements Sinus rhythm Atrial premature complexes in couplets ST elev, probable normal early repol pattern Electronically Signed On 06-17-2022 5:48:33 EDT by Trevor Wheeler [facility] Work Phone: EKG 12 LeadOrdered By: La Nenao wn Result on 06-17-2022 [facility] Ethanolon 06-17-2022 Ethanol Lvl 0.177 g/dL High 0 - 0.01 g/dL [facility] Comment on above: NOTE: This result is for medical treatment only. Analysis performed using non-forensic procedures. Ethanol Serum/Plasmaon 06-17 Ethanol-Serum/Plasma 0.177 g/dL High 0.000-0.010 [facility] Comment on above: Result Comment: NOTE : This result is for medical treatment only. Analysis performed using non-forensic procedures. Performed By: #### H EMDF, PT, ETOH4, BMP3 #### [address] Hemogram w/ Autodiffon 06-17 Abs Baso Cnt 0.1 10*3/uL Normal 0.0-0.2 [facility] Comment on above: Performed By: #### H EMDF, PT, ETOH4, BMP3 #### [address] Abs Neutrophile Cnt 11.4 10*3/uL High 1.8-7.0 [facility] Comment on above: Performed By: #### H EMDF, PT, ETOH4, BMP3 #### [address] Basophils/100 WBC (Bld) 0.5 % Normal 0.0-2.0 [facility] Comment on above: Performed By: #### H EMDF, PT, ETOH4, BMP3 #### [address] Eosinophils (Bld) [#/Vol] 0.0 10*3/uL Normal 0.0-0.5 [facility] Comment on above: Performed By: #### H EMDF, PT, ETOH4, BMP3 #### [address] Eosinophils/100 WBC (Bld) 0.3 % Low 1.0-6.0 [facility] Comment on above: Performed By: #### H EMDF, PT, ETOH4, BMP3 #### [address] Erythrocyte distribution width (RBC) [Ratio] 13.8 % Normal 11.5-14.5 [facility] Comment on above: Performed By: #### H EMDF, PT, ETOH4, BMP3 #### [address] Granulocytes/100 WBC (Bld) 84.1 % High 40.0-80.0 [facility] Comment on above: Performed By: #### H EMDF, PT, ETOH4, BMP3 #### [address] Hematocrit (Bld) [Volume fraction] 41.1 % Normal 40.0-52.0 [facility] Comment on above: Performed By: #### H EMDF, PT, ETOH4, BMP3 #### [address] Hemoglobin (Bld) [Mass/Vol] 13.8 g/dL Normal 13.0-18.0 [facility] Comment on above: Performed By: #### H EMDF, PT, ETOH4, BMP3 #### [address] Lymphocytes (Bld) [#/Vol] 1.0 10*3/uL Normal 1.0-4.3 [facility] Comment on above: Performed By: #### H EMDF, PT, ETOH4, BMP3 #### [address] Lymphocytes/100 WBC (Bld) 7.7 % Low 20.0-40.0 [facility] Comment on above: Performed By: #### H EMDF, PT, ETOH4, BMP3 #### [address] MCH (RBC) [Entitic mass] 29.2 pg Normal 26.0-34.0 [facility] Comment on above: Performed By: #### H EMDF, PT, ETOH4, BMP3 #### [address] MCHC 33.5 % Normal 32.0-36.0 [facility] Comment on above: Performed By: #### H EMDF, PT, ETOH4, BMP3 #### [address] MCV (RBC) [Entitic vol] 87.1 fL Normal 80.0-98.0 [facility] Comment on above: Performed By: #### H EMDF, PT, ETOH4, BMP3 #### [address] Monocytes (Bld) [#/Vol] 1.0 10*3/uL High 0.0-0.8 [facility] Comment on above: Performed By: #### H EMDF, PT, ETOH4, BMP3 #### [address] Monocytes/100 WBC (Bld) 7.4 % Normal 2.0-10.0 [facility] Comment on above: Performed By: #### H EMDF, PT, ETOH4, BMP3 #### [address] Platelet mean volume (Bld) [Entitic vol] 7.9 fL Normal 7.4-12.4 [facility] Comment on above: Result Comment: MPV is a calculated measurement using platelet volume ratio. Performed By: #### H EMDF, PT, ETOH4, BMP3 #### [address] Platelets (Bld) [#/Vol] 335 10*3/uL Normal 140-440 [facility] Comment on above: Performed By: #### H EMDF, PT, ETOH4, BMP3 #### [address] RBC (Bld) [#/Vol] 4.72 10*6/uL Normal 4.40-5.90 [facility] Comment on above: Performed By: #### H EMDF, PT, ETOH4, BMP3 #### [address] WBC (Bld) [#/Vol] 13.6 10*3/uL High 3.6-10.7 [facility] Comment on above: Performed By: #### H EMDF, PT, ETOH4, BMP3 #### [address] [id number] No Panel Informationon 06-17 Interpretation and review of laboratory results Abnormal [facility] Test Performed by [facility], [address] [place] [id number] [place] [address] - [facility] Radiology Study observation (narrative) [facility] Work Phone: OPERATIVE REPORTon 2 Ordered by an unspecified provider. [facility] Prothrombin Timeon 2 INR 1.1 Normal 0.9-1.1 [facility] Comment on above: Result Comment: Izaiah mmended [...] #### H EMDF, PT, ETOH4, BMP3 #### [address] PT Coag (PPP) [Time] 11.4 s Normal 9.0-12.0 [facility] Comment on above: Result Comment: . Performed By: #### H EMDF, PT, ETOH4, BMP3 #### [address] [id number] Protime-INRon 06-17-2022 INR Coag (Bld) [Relative time] 1.1 {INR} [facility] Comment on above: Recommended Anticoag ulant Therapy: [...] [Time] 11.4 s 9 - 12 s [facility] Comment on above: . Test Performed by [address] [address] [facility] TS GELon 06-17-2022 TS GEL ABO Group: B Rh, Gel: POS Antibody Screen Gel: NEG Normal [facility] Comment on above: Performed By: #### H EMDF, PT, ETOH4, BMP3 #### [address] [id number] TYPE AND SCREENon 06-17-2022 ABO Grouping B [facility] Rh Type Positive [facility] Test Performed by [address] [address] [facility] CHEST 1 VIEWon 06-17-2022 XR [...] Date: 06/17/2022 1:31:13 AM Ordering Provider: JUANA Evans [facility] [place] XR FOREARM 2 VIEWS RIGHTon 1 XR [...] 06/17/2022 12:21:56 AM Ordering Provider: JUANA HUNT [facility] X[facility] HAND RIGHT (MIN 3 VIEWS)o n 06-17-2022 Patient Name: JESSICA BARR Diagnostic Radiology ACCESSION EXAM DATE/TIME PROCEDURE ORDERING PROVIDER [id number] 06/17/2022 03:53 EDT CR Hand Complete 3+ [id number] -VILLAFANA, Views Right HIEU CPT code 89028 Reason For Exam (CR Hand Complete 3+ [...] Date and Time: 06/17/2022 3:46 [facility] Yuriy Valdez MD - 06/17/2022 Patient Name: JESSICA BARR Diagnostic Radiology ACCESSION EXAM DATE/TIME PROCEDURE ORDERING PROVIDER [id number] 06/17/2022 03:53 EDT CR Hand Complete 3+ [id number] -VILLAFANA, Views Right HIEU CPT code 90157 Reason For Exam (CR Hand Complete 3+ [...] Radiology ACCESSION EXAM DATE/TIME PROCEDURE ORDERING PROVIDER [id number] 06/17/2022 03:53 EDT CR Wrist Complete 3 [id number] -KREKAM JOLLY Views Right CPT code 96177 Reason For Exam (CR Wrist Complete 3 [...] CHRISTOPHER Transcribed Date and Time: 06/17/2022 3:46 [facility] Yuriy Valdez MD - 06/17/2022 Patient Name: JESSICA BARR Diagnostic Radiology ACCESSION EXAM DATE/TIME PROCEDURE ORDERING PROVIDER [id number] 06/17/2022 03:53 EDT CR Wrist Complete 3 [id number] -KRESHANAE, KAM Views Right CPT code 63020 Reason For Exam (CR Wrist Complete 3 [...] and Clinic Strep A (POCT) Negative Negative [facility] Vital Signs Date Time Vital Sign Value Performing Clinician Facility 03-04-2025 15:48-0400 Body temperature 98.1 [degF] Dr. Lupillo Alvarado MD Work Phone: [facility] 03-04-2025 15:48-0400 Diastolic blood pressure 77 mm[Hg] Dr. Lupillo Alvarado MD Work Phone: [facility] 03-04-2025 15:48-0400 Heart rate 81 /min Dr. Lupillo Alvarado MD Work Phone: [facility] 03-04-2025 15:48-0400 Respiratory rate 16 /min Dr. Lupillo Alvarado MD Work Phone: [phone] [place] [address] 03-04-2025 15:48-0400 SaO2% (BldA) [Mass fraction] 99 % Dr. Lupillo Alvarado MD Work Phone: [phone] [place] [address] 03-04-2025 15:48-0400 Systolic blood pressure 120 mm[Hg] Dr. Lupillo Alvarado MD Work Phone: [phone] [place] [address] 03-04-2025 12:10-0400 Body height 175.[address] Lupillo Alvarado MD Work Phone: [phone] [place] [address] 03-04-2025 12:10-0400 Body mass index (BMI) [Ratio] 24.1 kg/m2 Dr. Lupillo Alvarado MD Work Phone: [phone] [place] [address] 03-04-2025 12:10-0400 Body weight 74.[address] Lupillo Alvarado MD Work Phone: [phone] [place] [address] 01-29-2025 05:50-0400 Body temperature 98 [degF] Dr. Lupillo Alvarado MD Work Phone: [phone] [place] [address] 01-29-2025 05:50-0400 Diastolic blood pressure 78 mm[Hg] Dr. Lupillo Alvarado MD Work Phone: [phone] [place] [address] 01-29-2025 05:50-0400 Heart rate 81 /min Dr. Lupillo Alvarado MD Work Phone: [phone] [place] [address] 01-29-2025 05:50-0400 Respiratory rate 18 /min Dr. Lupillo Alvarado MD Work Phone: [phone] [place] [address] 01-29-2025 05:50-0400 SaO2% (BldA) [Mass fraction] 98 % Dr. Lupillo Alvarado MD Work Phone: [phone] [place] [address] 01-29-2025 05:50-0400 Systolic blood pressure 128 mm[Hg] Dr. Lupillo Alvarado MD Work Phone: [phone] [place] [address] 01-29-2025 03:30-0400 Body height 175.[address] Lupillo Alvarado MD Work Phone: [facility] 01-29-2025 03:30-0400 Body mass index (BMI) [Ratio] 27.3 kg/m2 Dr. Lupillo Alvarado MD Work Phone: [facility] 01-29-2025 03:30-0400 Body weight 83.[address] Lupillo Alvarado MD Work Phone: [facility] 05-13-2024 12:19-0400 Body temperature 99 [degF] Ivonne P[employer]ler-[employer] Work Phone: [facility] 05-13-2024 12:19-0400 Body weight 79 kg Ivonne Praisler-Wood [employer] Work Phone: [facility] 05-13-2024 12:19-0400 Diastolic blood pressure 76 mm[Hg] Ivonne Praisler-Wood [employer] Work Phone: [facility] 05-13-2024 12:19-0400 Heart rate 111 /min Ivonne Praisler-Wood [employer] Work Phone: [facility] 05-13-2024 12:19-0400 Respiratory rate 20 /min Ivonne Praisler-Wood GUN STOCK MAKER.DIRECTOR MEDICAID Work Phone: [facility] 05-13-2024 12:19-0400 SaO2% (BldA) [Mass fraction] 98 % Ivonne Praisler-Wood GUN STOCK MAKER.DIRECTOR MEDICAID Work Phone: [facility] 05-13-2024 12:19-0400 Systolic blood pressure 115 mm[Hg] Ivonne Praisler-Wood GUN STOCK MAKER.DIRECTOR MEDICAID Work Phone: [facility] 04-26-2024 13:59-0400 Body temperature 98.49 [degF] Lul Kevin GUN STOCK MAKER.DIRECTOR MEDICAID Work Phone: [facility] 04-26-2024 13:59-0400 Body weight 78 kg Lul Kevin GUN STOCK MAKER.DIRECTOR MEDICAID Work Phone: [facility] 04-26-2024 13:59-0400 Diastolic blood pressure 89 mm[Hg] Lul Leninlebury GUN STOCK MAKER.DIRECTOR MEDICAID Work Phone: [facility] Comment on above: checked BP x 2 04-26-2024 13:59-0400 Heart rate 85 /min Lul Saabbury GUN STOCK MAKER.DIRECTOR MEDICAID Work Phone: [facility] 04-26-2024 13:59-0400 Respiratory rate 20 /min Lul Brown GUN STOCK MAKER.DIRECTOR MEDICAID Work Phone: [facility] 04-26-2024 13:59-0400 SaO2% (BldA) [Mass fraction] 97 % Lul Brown GUN STOCK MAKER.DIRECTOR MEDICAID Work Phone: [facility] 04-26-2024 13:59-0400 Systolic blood pressure 129 mm[Hg] Lul Saabbury GUN STOCK MAKER.DIRECTOR MEDICAID Work Phone: [facility] Comment on above: checked BP x 2 03-18-2024 12:57-0400 Body temperature 97.11 [degF] Laverne Zambrano GUN STOCK MAKER.DIRECTOR MEDICAID Work Phone: [facility] 03-18-2024 12:57-0400 Body weight 79 kg Laverne Zambrano GUN STOCK MAKER.DIRECTOR MEDICAID Work Phone: [facility] 03-18-2024 12:57-0400 Diastolic blood pressure 68 mm[Hg] Laverne Zambrano GUN STOCK MAKER.DIRECTOR MEDICAID Work Phone: [facility] 03-18-2024 12:57-0400 Heart rate 78 /min Laverne Zambrano GUN STOCK MAKER.DIRECTOR MEDICAID Work Phone: [facility] 03-18-2024 12:57-0400 Respiratory rate 16 /min Laverne Zambrano GUN STOCK MAKER.DIRECTOR MEDICAID Work Phone: [facility] 03-18-2024 12:57-0400 SaO2% (BldA) [Mass fraction] 96 % Laverne Zambrano GUN STOCK MAKER.DIRECTOR MEDICAID Work Phone: [facility] 03-18-2024 12:57-0400 Systolic blood pressure 128 mm[Hg] Laverne Zambrano STAR Work Phone: [facility] 03-03-2024 14:21-0400 Body temperature 98.6 [degF] Prakash Zhao MD Work Phone: [facility] 03-03-2024 14:21-0400 Body weight 78.47 kg Prakash Zhao MD Work Phone: [facility] 03-03-2024 14:21-0400 Diastolic blood pressure 74 mm[Hg] Prakash Zhao MD Work Phone: [facility] 03-03-2024 14:21-0400 Heart rate 84 /min Prakash Zhao MD Work Phone: [facility] 03-03-2024 14:21-0400 Respiratory rate 18 /min Prakash Zhao MD Work Phone: [facility] 03-03-2024 14:21-0400 Systolic blood pressure 122 mm[Hg] Prakash Zhao MD Work Phone: [facility] 02-29-2024 11:33-0400 Body temperature 97.5 [degF] Miriam Athy PA-C Work Phone: [facility] 02-29-2024 11:33-0400 Body weight 79.3 kg Miriam Athy PA-C Work Phone: [facility] 02-29-2024 11:33-0400 Diastolic blood pressure 70 mm[Hg] Miriam Athy PA-C Work Phone: [facility] 02-29-2024 11:33-0400 Heart rate 88 /min Miriam Athy PA-C Work Phone: [facility] 02-29-2024 11:33-0400 Respiratory rate 16 /min Miriam Athy PA-C Work Phone: [facility] 02-29-2024 11:33-0400 SaO2% (BldA) [Mass fraction] 97 % Miriam Athy PA-C Work Phone: [facility] 02-29-2024 11:33-0400 Systolic blood pressure 122 mm[Hg] Miriam Stef KIRBY-Bereket Work Phone: [facility] 01-29-2024 08:30-0400 Body temperature 98.01 [degF] Ivonne Praisler-Wood GUN STOCK MAKER.DIRECTOR MEDICAID Work Phone: [facility] 01-29-2024 08:30-0400 Body weight 77.8 kg Ivonne Praisler-Wood GUN STOCK MAKER.DIRECTOR MEDICAID Work Phone: [facility] 01-29-2024 08:30-0400 Diastolic blood pressure 64 mm[Hg] Ivonne Praisler-Wood GUN STOCK MAKER.DIRECTOR MEDICAID Work Phone: [facility] 01-29-2024 08:30-0400 Heart rate 75 /min Ivonne Praisler-Wood GUN STOCK MAKER.DIRECTOR MEDICAID Work Phone: [facility] 01-29-2024 08:30-0400 Respiratory rate 18 /min Vionne Praisler-Wood GUN STOCK MAKER.DIRECTOR MEDICAID Work Phone: [facility] 01-29-2024 08:30-0400 SaO2% (BldA) [Mass fraction] 97 % Ivonne Praisler-Wood GUN STOCK MAKER.DIRECTOR MEDICAID Work Phone: [facility] 01-29-2024 08:30-0400 Systolic blood pressure 149 mm[Hg] Ivonne Praisler-Wood GUN STOCK MAKER.DIRECTOR MEDICAID Work Phone: [facility] 03-11-2023 17:33-0400 Diastolic Blood Pressure Non-Invasive [address] MO ROUSSEAU MD [facility] 03-11-2023 17:33-0400 Heart rate 82 /min DR MO ROUSSEAU MD [facility] 03-11-2023 17:33-0400 Respiratory rate 16 /min DR MO ROUSSEAU MD [facility] 03-11-2023 17:33-0400 Systolic Blood Pressure Non-Invasive [address] MO ROUSSEAU MD [facility] 03-11-2023 14:27-0400 Body temperature 98.6 [degF] DR MO ROUSSEAU MD [facility] 03-11-2023 14:27-0400 Diastolic Blood Pressure Non-Invasive [address] MO ROUSSEAU MD [facility] 03-11-2023 14:27-0400 Heart rate 80 /min DR MO ROUSSEAU MD [facility] 03-11-2023 14:27-0400 Respiratory rate 16 /min DR MO ROUSSEAU MD [facility] 03-11-2023 14:27-0400 Systolic Blood Pressure Non-Invasive [address] MO ROUSSEAU MD [facility] 12-22-2022 14:46-0400 Diastolic Blood Pressure Non-Invasive 85 1 MANGO REICHFIELD DO [facility] 12-22-2022 14:46-0400 Heart rate 87 /min MANGO REICHFIELD DO [facility] 12-22-2022 14:46-0400 Respiratory rate 18 /min MANGO REICHFIELD DO [facility] 12-22-2022 14:46-0400 Systolic Blood Pressure Non-Invasive 132 1 MANGO REICHFIELD DO [facility] 12-22-2022 13:34-0400 Diastolic Blood Pressure Non-Invasive 80 1 MANGO REICHFIELD DO [facility] 12-22-2022 13:34-0400 Heart rate 63 /min MANGO REICHFIELD DO [facility] 12-22-2022 13:34-0400 Respiratory rate 20 /min MANGO REICHFIELD DO [facility] 12-22-2022 13:34-0400 Systolic Blood Pressure Non-Invasive 136 1 MANGO REICHFIELD DO [facility] 12-22-2022 13:10-0400 Body height 175 cm MANGO REICHFIELD DO [facility] 12-22-2022 13:10-0400 Body temperature 98.06 [degF] MANGO REICHFIELD DO [facility] 12-22-2022 13:10-0400 Body weight 68 kg MANGO REICHFIELD DO [facility] 12-22-2022 13:10-0400 Diastolic Blood Pressure Non-Invasive 82 1 MANGO REICHFIELD DO [facility] 12-22-2022 13:10-0400 Heart rate 66 /min MANGO REICHFIELD DO [facility] 12-22-2022 13:10-0400 Height ZScore -0.25 MANGO REICHFIELD DO [facility] Comment on above: Result Comment: ^~:!ZScore Source -[facility] 12-22-2022 13:10-0400 Percent Height for Age 40.10 1 MANGO REICHFIELD DO [facility] Comment on above: Result Comment: ^~:!Percentile Source -[facility] 12-22-2022 13:10-0400 Respiratory rate 18 /min MANGO REICHFIELD DO [facility] 12-22-2022 13:10-0400 Systolic Blood Pressure Non-Invasive 127 1 MANGO TYSON DO [facility] 07-01-2022 22:15-0400 Body height 175.3 cm [facility] 07-01-2022 22:15-0400 Body mass index (BMI) [Ratio] 22.15 kg/m2 [facility] 07-01-2022 22:15-0400 Body temperature 99.1 [degF] [facility] 07-01-2022 22:15-0400 Body weight 68.04 kg [facility] 07-01-2022 22:15-0400 Diastolic blood pressure 75 mm[Hg] [facility] 07-01-2022 22:15-0400 Heart rate 91 /min [facility] 07-01-2022 22:15-0400 Respiratory rate 16 /min [facility] 07-01-2022 22:15-0400 SaO2% (BldA) [Mass fraction] 97 % [facility] 07-01-2022 22:15-0400 Systolic blood pressure 126 mm[Hg] [facility] 06-21-2022 21:07-0400 Diastolic blood pressure 80 mm[Hg] JASEN Guerra MD Work Phone: [facility] 06-21-2022 21:07-0400 Heart rate 84 /min JASEN Guerra MD Work Phone: [facility] 06-21-2022 21:07-0400 Respiratory rate 18 /min JASEN Guerra MD Work Phone: [facility] 06-21-2022 21:07-0400 SaO2% (BldA) [Mass fraction] 99 % JASEN Guerra MD Work Phone: [facility] 06-21-2022 21:07-0400 Systolic blood pressure 132 mm[Hg] JASEN Guerra MD Work Phone: [facility] 06-21-2022 17:49-0400 Body height 172.7 cm JASEN Guerra MD Work Phone: [facility] 06-21-2022 17:49-0400 Body mass index (BMI) [Ratio] 22.05 kg/m2 JASEN Guerra MD Work Phone: [facility] 06-21-2022 17:49-0400 Body weight 65.77 kg JASEN Guerra MD Work Phone: [facility] 06-21-2022 17:46-0400 Body temperature 97.11 [degF] JASEN Guerra MD Work Phone: [facility] 06-18-2022 14:24-0400 Respiratory rate 16 /min Trevor Wheeler MD Work Phone: [facility] 06-18-2022 10:27-0400 Body temperature 98.01 [degF] Trevor Wheeler MD Work Phone: [facility] 06-18-2022 10:27-0400 Diastolic blood pressure 73 mm[Hg] Trevor Wheeler MD Work Phone: [facility] 06-18-2022 10:27-0400 Heart rate 70 /min Trevor Wheeler MD Work Phone: [facility] 06-18-2022 10:27-0400 SaO2% (BldA) [Mass fraction] 99 % Trevor Wheeler MD Work Phone: [facility] 06-18-2022 10:27-0400 Systolic blood pressure 130 mm[Hg] Trevor Wheeler MD Work Phone: [facility] 06-17-2022 02:23-0400 Body height 172.7 cm Trevor Wheeler MD Work Phone: [facility] 06-17-2022 02:23-0400 Body mass index (BMI) [Ratio] 22.81 kg/m2 Trevor Wheeler MD Work Phone: [facility] 06-17-2022 02:23-0400 Body weight 68.04 kg Trevor Wheeler MD Work Phone: [facility] 06-17-2022 00:20-0400 Diastolic blood pressure 74 mm[Hg] DR JUANA HUNT MD [facility] 06-17-2022 00:20-0400 Heart rate 64 /min DR JUANA HUNT MD [facility] 06-17-2022 00:20-0400 Reason For Taking VItal Signs DR JUANA HUNT MD [facility] 06-17-2022 00:20-0400 Respiratory rate 16 /min DR JUANA HUNT MD [facility] 06-17-2022 00:20-0400 Systolic blood pressure 128 mm[Hg] DR JUANA HUNT MD [facility] 06-16-2022 23:50-0400 Body temperature 98.06 [degF] DR JUANA HUNT MD [facility] 06-16-2022 23:50-0400 Diastolic blood pressure 60 mm[Hg] DR JUANA HUNT MD [facility] 06-16-2022 23:50-0400 Heart rate 60 /min DR JUANA HUNT MD [facility] 06-16-2022 23:50-0400 Respiratory rate 16 /min DR JUANA HUNT MD [facility] 06-16-2022 23:50-0400 Systolic blood pressure 131 mm[Hg] DR JUANA HUNT MD [facility] 04-17-2022 14:37-0400 Body height 175 cm PAMELA DAIGLE MD [facility] 04-17-2022 14:37-0400 Body temperature 98.42 [degF] PAMELA DAIGLE MD [facility] 04-17-2022 14:37-0400 Body weight 68.2 kg PAMELA DAIGLE MD [facility] 04-17-2022 14:37-0400 Diastolic blood pressure 89 mm[Hg] PAMELA ADIGLE MD [facility] 04-17-2022 14:37-0400 Heart rate 62 /min PAMELA DAIGLE MD [facility] 04-17-2022 14:37-0400 Height ZScore -0.23 PAMELA DAIGLE MD [facility] Comment on above: Result Comment: ^~:!ZScore Source [facility] 04-17-2022 14:37-0400 Percent Height for Age 41.04 1 PAMELA DAIGLE MD [facility] Comment on above: Result Comment: ^~:!Percentile Source -[facility] 04-17-2022 14:37-0400 Respiratory rate 16 /min PAMELA DAIGLE MD [facility] 04-17-2022 14:37-0400 Systolic blood pressure 140 mm[Hg] PAMELA DAIGLE MD [facility] 01-31-2022 15:56-0400 Body weight 68.95 kg Prakash Zhao MD Work Phone: [facility] 01-31-2022 15:56-0400 Diastolic blood pressure 52 mm[Hg] Prakash Zhao MD Work Phone: [facility] 01-31-2022 15:56-0400 Heart rate 55 /min Prakash Zhao MD Work Phone: [facility] 01-31-2022 15:56-0400 Respiratory rate 16 /min Prakash Zhao MD Work Phone: [facility] 01-31-2022 15:56-0400 SaO2% (BldA) [Mass fraction] 98 % Prakash Zhao MD Work Phone: [facility] 01-31-2022 15:56-0400 Systolic blood pressure 110 mm[Hg] Prakash Zhao MD Work Phone: [facility] 01-30-2022 17:01-0400 Body temperature 98.01 [degF] Ivonne Praisler-Wood GUN STOCK MAKER.DIRECTOR MEDICAID Work Phone: [facility] 01-30-2022 17:01-0400 Body weight 69.22 kg Ivonne Praisler-Wood GUN STOCK MAKER.DIRECTOR MEDICAID Work Phone: [facility] 01-30-2022 17:01-0400 Diastolic blood pressure 62 mm[Hg] Ivonne Praisler-Wood GUN STOCK MAKER.DIRECTOR MEDICAID Work Phone: [facility] 01-30-2022 17:01-0400 Heart rate 82 /min Ivonne Praisler-Wood GUN STOCK MAKER.DIRECTOR MEDICAID Work Phone: [facility] 01-30-2022 17:01-0400 Respiratory rate 18 /min Ivonne Praisler-Wood GUN STOCK MAKER.DIRECTOR MEDICAID Work Phone: [facility] 01-30-2022 17:01-0400 SaO2% (BldA) [Mass fraction] 99 % Ivonne Praisler-Wood GUN STOCK MAKER.DIRECTOR MEDICAID Work Phone: [facility] 01-30-2022 17:01-0400 Systolic blood pressure 112 mm[Hg] Ivonne Praisler-Wood GUN STOCK MAKER.DIRECTOR MEDICAID Work Phone: [facility] Encounters Encounter Date Encounter Type Care Provider Facility Start: 03-04-2025 End: 03-04-2025 Emergency department patient visit Dr. Lupillo Alvarado MD Work Phone: -Emergency Department Work Phone: Start: 02-23-2025 End: 02-23-2025 Emergency department patient visit REG SHARPE DO [facility] Start: 02-08-2025 End: 02-08-2025 Emergency department patient visit DR KIARA SCHAFFER MD [facility] Start: 02-08-2025 End: 02-13-2025 Telephone encounter Justo Salinas MD Work Phone: [facility] Comment on above: Appointment Start: 02-07-2025 End: 02-07-2025 Emergency department patient visit GIRMA BOYD Facility:[facility] Start: 01-29-2025 End: 01-29-2025 Emergency department patient visit Dr. Lupillo Alvarado MD Work Phone: -Emergency Department Work Phone: Start: 10-18-2024 End: 10-18-2024 Telephone encounter Fabiola Arshad RN [facility] Comment on above: Care Coordination (L purvi Nodule Follow Up) Start: 08-11-2024 End: 08-11-2024 ambulatory DARREN CRONIN GUN STOCK MAKER-DIRECTOR MEDICAID Facility:[facility] Start: 08-11-2024 End: 08-11-2024 Patient encounter procedure DARREN CRONIN GUN STOCK MAKER-DIRECTOR MEDICAID [facility] Start: 05-30-2024 ambulatory Felecia Roland Facility:[facility] Start: 05-30-2024 End: 06-02-2024 Evaluation and management of inpatient Yvette Nieto Facility:[facility] Start: 05-27-2024 End: 05-27-2024 Emergency department patient visit Jacques Paul Facility:[facility] Start: 05-25-2024 End: 05-25-2024 Emergency department patient visit Lupillo Alvarado Facility:[facility] Start: 05-13-2024 End: 05-13-2024 ambulatory PRAKASH ZHAO Facility:[facility] Start: 05-13-2024 End: 05-13-2024 Patient encounter procedure Ivonne Cooper GUN STOCK MAKER.DIRECTOR MEDICAID Work Phone: [facility] Comment on above: Sore throat (Primary Dx); Viral illness Start: 04-26-2024 End: 04-26-2024 ambulatory PRAKASH ZHAO Facility:[facility] Start: 04-26-2024 End: 04-26-2024 Office outpatient visit 15 minutes Lul Brown APRN.DIRECTOR MEDICAID Work Phone: [facility] Comment on above: Viral illness (Prima ry Dx) Start: 03-18-2024 End: 03-18-2024 ambulatory PRAKASH ZHAO Facility:[facility] Start: 03-18-2024 End: 03-18-2024 Patient encounter procedure Laverne Zambrano GUN STOCK MAKER.DIRECTOR MEDICAID Work Phone: [facility] Comment on above: Subacute cough (Prim laquita Dx); Sore throat Start: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 Encounter - Fabiola Arshad RN - 10/18/2024 9:23 AM EST Pt seen in ED in June 2022 [...] as a reminder for OPTIONAL repeat imaging. [id number] Miscellaneous Notes* Telephone Encounter - Fabiola Arshad RN - 10/18/2024 9:23 AM EST Pt seen in ED in June 2022 [...] for OPTIONAL repeat imaging. documented in this [facility]12-05-2024 Note ORIGINAL EXAMINATION: THREE XRAY VIEWS OF [...] Sign Date: 08/11/2024 3:52:26 PM Ordering Provider: [facility]09-26-2024 Note [facility] Medical Records Department [address] [place] [address] Discharge Summary 06/02/24 1442 MR#: [id number] Acct: [id number] Name: JESSICA BARR Rep #: [id number] : 2005 19 From: Yvette Nieto DO PCP: Care Physician,No Primary Status:ADM IN Location: [facility] SG816-1 Providers Date of Admission: 05/30/24 Date of Discharge: 06/02/24 Primary Care Physician: No Primary Care Phys Consultations 05/30/24 17:57 Consult: [...] soft to palpation and (more content not included)...[facility]09-23-2024 Note [facility] Medical Records Department [address] [place] [address] Consultation 05/30/24 1526 MR#: [id number] Acct: [id number] Name: TEETEEJESSICA Arevalo Rep #: [id number] : 2005 19 From: Yuriy Ding MD [...] for Consultation: pharyngeal abscess HPI Narrative: JESSICA BARR is a 19 M who presents with a pharyngeal abscess. Weston positive, progressively worsening sore throat; placed on [...] 90.2 H, Lymph % (Auto) 3.9 L, Weston % (Auto) 4.5, Eos % (Auto) 0.0, [...] Felix MD at 14:23 EDT , 05/30/24 1531 Cosigner Signature (if applicable): CC: No Primary Care Physician [facility]igned[facility] Instructions* Patient Instructions* Ivonne Cooper APRN.DIRECTOR MEDICAID - 05/13/2024 12:37 PM EDT ASSESSMENT/PLAN: 1. [...] Discussed expected course of illness Ivonne Cooper APRN.DIRECTOR MEDICAID Treatment for Viral Upper Respiratory Tract Infections Your body will kill off the virus by itself. Additionally, you can prime your body's immune system.This may help you get better more quickly. Drink lots of fluids Make sure you are eating well Get plenty of rest We do not have any medications that kill off these viruses. Antibiotics are used to treat bacterialinfections; however, they are not active against viral infections. There are some things that mighthelp you feel better, though. Vaporizers, humidifiers, hot showers, and hot fluids help open respiratory and sinus passages [place] [facility] [place] may offer relief of nasal and head [...] worse rather than better [facility]24 NoteHNO ID: [id number] Author: IVONNE COOPER APRN.DIRECTOR MEDICAID Service: ? Author Type: Nurse Practitioner Type: [...] Maternal Grandmother Coronary Artery Disease Maternal Grandfather CT Coronary Artery Disease Paternal Grandfather CT Breast Cancer Other Social History Tobacco Use [...] Discussed expected course of illness Ivonne Cooper APRN.[facility]09-06-2024 History of Present illness Narrative* Ivonne Cooper APRN.[facility] - 05/13/2024 12:34 PM EDT Subjective Fever Associated symptoms include headaches and [...] Maternal Grandmother Coronary Artery Disease Maternal Grandfather CT Coronary Artery Disease Paternal Grandfather CT Breast Cancer Other Social History Tobacco Use [...] Discussed expected course of illness Ivonne Cooper APRN.DIRECTOR MEDICAID documented in [place] [address]-20-2024 NoteHNO ID: [id number] Author: LUL BROWN APRN.DIRECTOR MEDICAID Service: ? Author Type: Nurse Practitioner Type: [...] Maternal Grandmother Coronary Artery Disease Maternal Grandfather CT Coronary Artery Disease Paternal Grandfather CT Breast Cancer Other Social History Tobacco Use [...] of care. This note was generated using Nexus Dx software. It may contain errors in wording, punctuation, or spelling. Lul Brown APRN.[facility]08-20-2024 History of Present illness Narrative* Lul Brown APRN.DIRECTOR MEDICAID - 04/26/2024 2:03 PM EDT Subjective HPI Nontoxic-appearing male presents urgent care chief complaint flu like symptoms. Duration of symptoms 2 days. 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 No OTC medications. No known sick contacts. Does work in public. Denies any fever productive cough chest pain shortness of breath pleuritic pain hemoptysis nausea vomiting abdominal pain change in bowel or bladder habits.Past medical history prescription medication use and allergies [...] Maternal Grandmother Coronary Artery Disease Maternal Grandfather CT Coronary Artery Disease Paternal Grandfather CT Breast Cancer Other Social History Tobacco Use [...] unremarkable at this time. Based on exam andclinical finding, the patient is stable for discharge. Plan of care was discussed with patient. Patient verbalizes understanding and agrees to plan of care. This note was generated using Nexus Dx software. It may contain errors in wording, punctuation, or spelling. Lul Brown APRN.BENNY documented in this encounterWhite [facility]07-12-2024 NoteHNO ID: [id number] Author: LAVERNE ZAMBARNO APRN.BENNY Service: ? Author Type: Nurse Practitioner [...] Maternal Grandmother Coronary Artery Disease Maternal Grandfather CT Coronary Artery Disease Paternal Grandfather CT Breast Cancer Other Social History Tobacco Use [...] HENT: Head: Normocephalic and atraumatic. Mouth/Throat: Lips: [place]. Mouth: Mucous membranes are moist. Pharynx: Uvula [...] - STREP A MOLECULAR (POC) Laverne Zambrano APRN.[facility]07-12-2024 History of Present illness Narrative* Laverne Zambrano APRN.DIRECTOR MEDICAID - 03/18/2024 1:22 PM EDT Subjective HPI HPI Jessica Barr is a [...] Maternal Grandmother Coronary Artery Disease Maternal Grandfather CT Coronary Artery Disease Paternal Grandfather CT Breast Cancer Other Social History Tobacco Use [...] HENT: Head: Normocephalic and atraumatic. Mouth/Throat: Lips: [place]. Mouth: Mucous membranes are moist. Pharynx: Uvula [...] - STREP A MOLECULAR (POC) Laverne Zambrano APRN.CNP documented in this encounterWhite Hospital07-12-2024 History of Present illness Narrative* John Davis RT(R) - 03/18/2024 1:20 PM EDT Radiology Service Progress Note PATIENT NAME: Jessica Barr DATE OF SERVICE: March 18, 2024 TIME: 1:20 PM PATIENT IDENTITY VERIFICATION COMPLETED USING TWO (2) IDENTIFIERS: Name and Date of confirmedby patient verbally. FALL SCREENING: Has the patient had 2 falls in the last year or 1 fall with injury or currently using an Ambulatory Assistive Device (Walker, Cane, Wheelchair, Crutches, etc.)? No PATIENT GENDER DATA: Male PATIENT RELEVANT IMPLANT DATA REVIEWED: Not Applicable PATIENT PRESENTS WITH AN IMPLANTABLE OR ATTACHED FORENSIC SERGEANT: No RADIOLOGY DEPARTMENT: General X-ray: Exam(s) Completed: Chest X-Ray PERIPHERAL IV DATA: Not applicable SIGNED BY: RT Mary Ann([place]) March 18, 2024 1:20 PM documented in this encounterWhite Hospital07-12-2024 NoteHNO ID: [id number] Author: JOHN DAVIS RT(R) Service: Radiology Author [...] PATIENT PRESENTS WITH AN IMPLANTABLE OR ATTACHED FORENSIC SERGEANT: No RADIOLOGY DEPARTMENT: General X-ray: Exam(s) Completed: Chest X-Ray PERIPHERAL IV DATA: Not applicable SIGNED BY: RT Mary Ann(R) March 18, 2024 1:20 [facility]06-27-2024 NoteHNO ID: [id number] Author: PRAKASH ZHAO MD Service: ? Author Type: Physician Type: Progress Notes Filed: 03/03/2024 15:38 Note Text: This note was created using Immediatelyriter. Subjective Jessica Barr is a 18 year [...] on risks of binge consumption. Prakash Zhao [facility]06-27-2024 History of Present illness Narrative* Prakash Zhao MD - 03/03/2024 2:48 PM EDT This note was created using Immediatelyriter. Subjective Jessica aBrr is a 18 year old male. He [...] Cuff Size: Large Adult) Pulse 84 Temp 37C (98.6 F) (Temporal) Resp 18 Wt 78.5 [...] with patient, and I recommended no further interventionat this time. Assessment and Plan 1. Tobacco [...] consumption. Prakash Zhao MD documented in this encounterWhite Hospital06-24-2024 NoteHNO ID: [id number] Author: MIRIAM WATSON PA-C Service: ? Author Type: Physician Promotions Coordinator Type: Progress Notes Filed: 02/29/2024 12:41 Note [...] Maternal Grandmother Coronary Artery Disease Maternal Grandfather CT Coronary Artery Disease Paternal Grandfather CT Breast Cancer Other Social History Tobacco Use [...] of symptoms - STREP A MOLECULAR (POC) KO[facility]06-24-2024 History of Present illness Narrative* Miriam Watson PA-C - 02/29/2024 12:39 PM EDT This note was created using Immediatelyriter. Subjective Jessica Barr is a 18 year [...] Maternal Grandmother Coronary Artery Disease Maternal Grandfather CT Coronary Artery Disease Paternal Grandfather CT Breast Cancer Other Social History Tobacco Use [...] (POC) Miriam Watson PA-C documented in this encounterWhite Hospital06-24-2024 Instructions* Patient Instructions* Miriam Watson PA-C - 02/29/2024 11:[address] Zhao follow up for smoking cessation Dayquil/Nyquil otc for cold symptoms If not better inone geraldo aguirre again documented in this encounterWhite Hospital05-24-2024 NoteHNO ID: [id number] Author: IVONNE COOPER APRN.DIRECTOR MEDICAID Service: ? Author Type: Nurse Practitioner Type: [...] Maternal Grandmother Coronary Artery Disease Maternal Grandfather CT Coronary Artery Disease Paternal Grandfather CT Breast Cancer Other Social History Tobacco Use [...] Discussed expected course of illness Ivonne Cooper APRN.[facility]05-24-2024 History of Present illness Narrative* Ivonne Cooper APRN.DIRECTOR MEDICAID - 01/29/2024 8:48 AM EDT Images from the original note were not [...] Maternal Grandmother Coronary Artery Disease Maternal Grandfather CT Coronary Artery Disease Paternal Grandfather CT Breast Cancer Other Social History Tobacco Use [...] illness Ivonne Cooper APRN.BENNY documented in this encounterWhite Hospital05-24-2024 Instructions* Patient Instructions* Ivonne Cooper APRN.CNP - 01/29/2024 8:48 AM EDT ASSESSMENT/PLAN: 1. [...] open to the air as much as possibleand wear sandals when possible. To treat sharlenete s foot, use lfph-dym-usiogrw medicated foot powder or cream such as [...] one week of treatment. documented in this encounterWhite Hospital07-05-2023 Note Discharge Instructions Thank you for allowing [facility] to assist you with your healthcare needs. The following is importantdischarge information regarding your hospital visit. Diagnosis from Today's Visit Abdominal pain Diarrhea-bloody What to Do Next Instructions from Your Care Team - Call early tomorrow to schedule appointment and establish care with [facility] No qualifying data available. Post Acute Orders No qualifying data available. You Need to Schedule the Following Appointments Follow Up with [facility] When Within 3-5 days Where: [address] [place] [id number]- Allergies NKA Medications Please ask your primary doctor or pharmacist before taking any other medication not listed, including over the counter drugs, herbal medications, vitamins and or supplements as they may interact withyour home medications. What How Much When Why [...] They have too much sugar and not enoughelectrolytes. Home care Follow all instructions given by your healthcare provider. Rest at home for the next 24 hours, or until you feel better. Avoid caffeine, tobacco, and alcohol. These can make diarrhea, cramping, and pain worse. If taking medicines: Uccj-knu-vilppup nausea and diarrhea medicines are generally OK [...] with soap and water and using alcohol-based webmethods consultant is the best way to prevent the spread of infection. Dry your hands with a single use towel (like a paper towel). Clean the toilet after each use. Wash your hands before eating. Wash your hands before and after preparing food. Keep in mind that people with diarrhea or vomitingshould not prepare food for others. Wash your hands after using cutting boards, countertops, and knives that have been in contact with raw foods. Wash and then peel fruits and vegetables. Keep uncooked meats away from cooked and suxjp-oz-sxh foods. Use a food thermometer when cooking. Cook poultry to at least 165 F (74 C). Cook ground meat (beef,veal, pork, wang) to at least 160 F (71 C). Cook fresh beef, veal, wang, and pork to at least 145 F(63 C). Don t eat raw or undercooked eggs (poached or jamie side up), poultry, meat, or unpasteurized milk and juices. Food and drinks The main goal while treating vomiting or diarrhea is to prevent dehydration. This is done by takingsmall amounts of liquids often. Keep in mind [...] or as directed by your healthcare provider 7310-3713 The MD.Voice. [address] [place] [address]. All rights reserved. This information is not intended as a substitute for professional medical care. Always follow yourhealthcare professional's instructions. Additional Information VACCINATE! IT SAVES LIVES! Members of the community who have not yet received the COVID-19 vaccine and would like to receive it can visit one of [facility] vaccine clinics. There are many vaccine clinic locations within the [facility]. For locations and available times, please visit www.[email or web address].[place].gov/. It is important to note that some COVID mobile vaccine clinics are held outdoors and may be canceled in rainy or stormy conditions. To learn more about pediatric vaccinations (ages 5-11), we invite you to visit the [facility] webpage. https://www.[email or web address].org/pages/4069-Ulbjv-Pwnujitchlg-Bddcodcoin-Lbfrn-Lxo stions.htmlTo learn more about the COVID-19 vaccine, we invite you to visit the CDC website for a list of frequently asked questions. https://www.cdc.gov/coronavirus/2019-ncov/vaccines/faq.html [facility] [facility] Patient Portal Access Instructions: Stay connected with your healthcare team and access your personal medical information anytime with the [facility] Patient Portal. If you would like a full copy of your medical records please contact the [facility] Medical Records Department Thursday through Thursday between 8a.m. and 4:30p.m. Please follow the directions below to access the portal: 1.Access the email account you provided upon registration to the [facility].2.Look for an invitation email from [facility].3.Open the email and access the invitation link: Accept Invitation to [facility]4.Fill in the required momin to create your account. Sign into [email or web address] with your username and password that you [...] you will allow to register on the [facility] Patient Portal for access to your information. You can also access the [facility] Patient Portal on the [employer] sammy. Simply click on Health Records under Spark CRM[employer] and then click on the [employer]ent[employer] logo. HOW TO SAFELY DISPOSE OF PRESCRIPTION MEDICATIONS Please use one of the following methods to safely dispose of your unused medications. 1.Use a drug disposal kit: the drug disposal pouch allows you to safely discard your old and unuseddrugs. Ask your nurse to give you one when you are discharged.2.Visit a local take-back location: Many local pharmacies and police departments have programs that collect old and unwanted prescriptiondrugs. Call your local pharmacy or go to http://Clacendix.Echobit/8M8Dl0u to find one close to you.3.Make use of household items: Use cat litter or old coffee grounds to dispose medications if other options arenot available. Mix your drugs with these household products, seal them in an airtight container andthrow it into the garbage. Call [facility]: [phone] to be sure your drugs can be [...] drowsiness, such as benzodiazepines, also known as benzos,including diazepam and alprazolam, muscle relaxants or sleep aids. Never sell or share prescriptionopioids. This is illegal. Store opioids in a [...] aware that I should contact my doctor. Patient/Mill Attendant Signature: Date/Time: Relationship to Patient: Witness Name/Signature: Date/Time: [facility] Norahhairka [id number] Hospital Discharge instructions Patient Education 03/11/2023 15:26:59 Diarrhea, Unknown [...] They have too much sugar and not enoughelectrolytes. Home care Follow all instructions given by your healthcare provider. Rest at home for the next 24 hours, or until you feel better. Avoid caffeine, tobacco, and alcohol. These can make diarrhea, cramping, and pain worse. If taking medicines: Gjbl-lqn-kucgibk nausea and diarrhea medicines are generally OK [...] with soap and water and using alcohol-based webmethods consultant is the best way to prevent the spread of infection. Dry your hands with a single use towel (like a paper towel). Clean the toilet after each use. Wash your hands before eating. Wash your hands before and after preparing food. Keep in mind that people with diarrhea or vomitingshould not prepare food for others. Wash your hands after using cutting boards, countertops, and knives that have been in contact with raw foods. Wash and then peel fruits and vegetables. Keep uncooked meats away from cooked and llybc-md-yjr foods. Use a food thermometer when cooking. Cook poultry to at least 165 F (74 C). Cook ground meat (beef,veal, pork, wang) to at least 160 F (71 C). Cook fresh beef, veal, wang, and pork to at least 145 F(63 C). Don t eat raw or undercooked eggs (poached or jamie side up), poultry, meat, or unpasteurized milk and juices. Food and drinks The main goal while treating vomiting or diarrhea is to prevent dehydration. This is done by takingsmall amounts of liquids often. Keep in mind [...] or as directed by your healthcare provider 3070-4261 The MD.Voice. [address] [place] [address]. All rights reserved. This information is not intended as a substitute for professional medical care. Always follow yourhealthcare professional's instructions. Follow Up Care 03/11/2023 14:21:03 With:[facility] Address: [address] [place] [id number]- When:3-5 days [facility] 07-05-2023 Evaluation + Plan note Diagnostic Tests Pending * Stool Gastrointestinal Panel 03/11/23 * Fecal Leukocytes 03/11/23 * Stool Culture 03/11/23 [facility] Norahharika Valadez 04-17-2023 Hospital Discharge instructions Patient Education 12/22/2022 14:53:41 BRONCHITIS w/ [...] The air passages may also go into spasm,especially if you are an asthmatic. This causes [...] soup, etc.). Extra fluids will help loosen secretionsin the lungs. Qoqc-kke-oxqwjfn cough medicines that contain dextromethorphan (such as Robitussin DM) and decongestants (Actifed or Sudafed) may help relieve cough and congestion. [NOTE: Do not use decongestants ifyou have high blood pressure.] If you were [...] influenza vaccination (flu shot) every . Ask yourdoctor about this. If you had an x- ray or EKG (electrocardiogram), it will be reviewed [...] Lower leg swelling, tenderness, redness or pain 6991-6568 The MD.Voice. [address] [place] [address]. All rights reserved. This information is not intended as a substitute for professional medical care. Always follow yourhealthcare professional's instructions. 12/22/2022 13:17:06 BRONCHITIS w/ Wheezing [...] The air passages may also go into spasm,especially if you are an asthmatic. This causes [...] soup, etc.). Extra fluids will help loosen secretionsin the lungs. Mjjx-laa-lrvjxfg cough medicines that contain dextromethorphan (such as Robitussin DM) and decongestants (Actifed or Sudafed) may help relieve cough and congestion. [NOTE: Do not use decongestants ifyou have high blood pressure.] If you were [...] influenza vaccination (flu shot) every . Ask yourdoctor about this. If you had an x- ray or EKG (electrocardiogram), it will be reviewed [...] Lower leg swelling, tenderness, redness or pain 9252-8598 The MD.Voice. [address] [place] [address], [place] [address]. All rights reserved. This information is not intended as a substitute for professional medical care. Always follow yourhealthcare professional's instructions. Follow Up Care 12/22/2022 13:04:26 With:Go to emergency room if symptoms worsen Address:Unknown When:2-4 days With:Call Physician Referral Address:Unknown When:2-[address] [facility] Valadez 04-17-2023 Note Discharge Instructions Thank you for allowing [facility] to assist you with your healthcare needs. The following is importantdischarge information regarding your hospital visit. Diagnosis from [...] and or supplements as they may interact withyour home medications. What How Much When Why [...] having uncontrolled asthma during may increase the riskof premature , low weight, or eclampsia (dangerously [...] each use. You do not need to shakeProAir RespiClick before using. Do not try to [...] may report side effects to FDA at 3-013-PIP-0204. What other drugs will affect albuterol inhalation? [...] may affect albuterol inhalation, including prescription and jrux-cnt-biuasqb medicines, vitamins, and herbal products. Not all [...] to ensure that the information provided by [employer]. ('Mult[employer]') is accurate, up-to-date, and complete, but no guarantee is made to that effect. Drug information contained herein may be time sensitive. [employer] information has been compiled for use by healthcare practitioners and consumers in the [place] and therefore C[employer] does not warrant that uses outside of the [place] are appropriate, unless specifically indicated otherwise. [employer] drug information does not endorse drugs, diagnose patients or recommend therapy. [employer] drug information isan informational resource designed to assist licensed healthcare practitioners in caring for their p atients and/or to serve consumers viewing this service as a supplement to, and not a substitute for, the expertise, skill, knowledge and judgment of healthcare practitioners. The absence of a warningfor a given drug or drug combination in no way should be construed to indicate that the drug or drug combination is safe, effective or appropriate for any given patient. [facility] does not assume any responsibility for any aspect of healthcare administered with the aid of information [facility] provides. The information contained herein is not intended to cover all possible uses, directions, precautions, warnings, drug interactions, allergic reactions, or adverse effects. If you have questions about the drugs you are taking, check with your doctor, nurse or pharmacist. Copyright 1170-2799 [facility] [employer].[facility]. Version: 10.. Revision Date: 07/25/2020. prednisone (PRED ni sone) Matteo What is the most important information [...] blood cell disorders, kidney disorders, leukemia, lymphoma, multi ple sclerosis, organ transplant rejection, swelling from a brain tumor or injury. Prednisone may also be used for purposes not listed in this medication guide. What should I discuss with my healthcare provider before taking prednisone? You should not use prednisone if you are allergic to it, or if you have a fungal infection anywherein your body. Steroid medication can weaken your [...] you may get an infection more easily. Callyour doctor if you have signs of infection [...] to thinning skin, easy bruising, changes in bodyfat (especially in your face, neck, back, and [...] can be serious or even fatal in peoplewho are using steroid medicine. Avoid drinking alcohol. [...] skin discoloration, craving salty foods, and feeling light- headed; or low potassium level--leg cramps, constipation, irregular heartbeats, fluttering in your chest, increased thirst or urination, numbness or tingling, muscle weakness or limp feeling. Prednisone can affect growth in children. Tell your doctor if your child is not growing at a normalrate while using this medicine. Common side effects [...] may report side effects to FDA at 8-347-QJN-1390. What other drugs will affect prednisone? Sometimes [...] may affect prednisone. This includes prescription and lsdy-qng-uqyuprl medicines, vitamins, and herbal products. Not all [...] to ensure that the information provided by [employer]. ('[employer]') is accurate, up-to-date, and complete, but no guarantee is made to that effect. Drug information contained herein may be time sensitive. C[employer] information has been compiled for use by healthcare practitioners and consumers in the [place] and therefore C[employer] does not warrant that uses outside of the [place] are appropriate, unless specifically indicated otherwise. [employer] drug information does not endorse drugs, diagnose patients or recommend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
--- NOTE | 2025-03-05 14:48 | EDS_ITS ---
<Statement entered by Kobe Pisano DO - 03/05/25 18:15> Patient was seen and examined with physician data entry assistant Batsheva All components of the history and physical confirmed and agreed. History of present illness and physical exam: Patient 19-year-old male with no known significant past medical history who presents to the emergency department with a chief complaint of right testicular pain. Once again I saw this patient yesterday and he states that this has been going on for at least a week if not longer. 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 He states that he has been taking a lot of ibupr ofen this morning to try to control the pain this was not helping. Review of systems: Agree with above Physical exam: Agree with above will add on the genitourinary exam as this was performed by myself which she does have tenderness palpation of the right testicle however the testicle is in the normal lie no concern Jennifer's gangrene, no urethral discharge no inguinal hernias noted no tenderness palpation in the left testicle no overlying skin changes no rashes or lesions MDM patient is a 19-year-old male who presents to the emergency department chief complaint of right testicular pain. Once again he was evaluated yesterday here by myself and he came back with what he describes worsening pain and swelling. On the differential diagnose includes Melamin to testicular cancer as there is a mass noted yesterday, torsion, UTI, orchitis, epididymitis. Repeat ultrasound will be performed. Repeat ultrasound was performed and showed a complex vascular mass within the right testicle measuring 3.3 x 2.6 x 2.4 cm which is grossly stable in size. Small hydrocele within the right. We reached out to on-call urologist Dr. Van who originally states that the patient go home with pain control and follow-up in the office tomorrow morning however he did call back and noted that he would like the patient admitted and will plan for surgery tomorrow. Patient is agreeable this plan as well. Patient's case was discussed with hospitalist Dr. Roland who accept patient for admission. Final impression: Right testicular mass Right testicular pain Disposition: Patient will be admitted to the hospital Supervising attending attestation: Kobe Pisano D.O. [facility] History of Present Illness Chief Complaint: Male Pain/Injury Narrative Narrative: 19-year-old male with no past medical history has had 1 week of right testicular pain and swelling. He was seen here yesterday and had a testicular ultrasound with a complex vascular mass. Dr. Van reviewed it and thought this was testicular cancer. 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 He is taking ibuprofen. No direct trauma. No urinary symptoms. No fever or chills. PFSH PFSH Medical History Depression Anxiety Home Medications ?Medication ?Instructions ?Recorded ?Last Taken ?Type gabapentin 100 mg capsule 100 mg PO TID 03/05/25 Unkno wn History hydrocodone-acetaminophen 5-325mg 1 tab PO Q6H PRN PRN Pain 3 days 03/05/25 Unknown Rx 5mg-325mg #12 TABLETS ondansetron 4 mg disintegrating 4 mg PO Q6H PRN nausea and 03/05/25 Unknown Rx tablet vomiting #12 tabs Allergy/AdvReac Type Severity Reaction Status Date / Time No Known Allergies Allergy Verified 03/05/25 14:35 Surgical History Status post open reduction and internal fixation (ORIF) of fracture Social History Smoking Status: Current every day smoker tobacco type: cigarettes and e- cigarettes alcohol intake: current alcohol intake frequency: a few times a month substance use type: marijuana ROS ROS ED ROS Narrative Constitutional: Negative for fever, chills, malaise. GI: Negative for abdominal pain, nausea, vomiting. : Negative for dysuria, hematuria or frequency. EXAM Physical Exam Narrative Exam Narrative: CONST: Patient sitting in no acute distress. EYES: Normal inspection. NECK: Normal inspection. RESP: No respiratory distress, CTAB. CVS: Regular rate and rhythm, no murmur, no gallop. ABD: Soft and nontender, no guarding or rebound, nondistended. : Right testicle swollen similar to yesterday's exam, normal testicular lie. SKIN: Color normal, no rash, warm, dry, intact. EXTREMITIES: Normal appearance, no pedal edema. NEURO: Alert and answering questions appropriately. PSYCH: Normal affect. Const Vital Signs: 03/05/25 14:33 03/05/25 17:27 Temperature 98.3 F 98.3 F Temperature Source Oral Pulse Rate 73 73 Respiratory Rate 19 H 19 H Blood Pressure 117/80 110/80 Blood Pressure Mean 92 90 Pulse Ox 99 99 MDM MDM MDM Narrative Medical decision making narrative: Consults: Urology, medicine Differential: Mass, torsion 19-year-old male has had right scrotal pain x 1 week. Yesterday in the ED a testicular ultrasound showed a complex vascular mass which urology thought was testicular cancer. Today he feels the right testicular pain and swelling is worse after he was more active yesterday. He appears well and nontoxic. Vital stable. Abdomen soft, nontender. Dr. Pisano did the testicular exam and states the amount of swelling is the same or improved from yesterday. Ultrasound shows a stable complex vascular mass in the right testicle. The radiologist called and said there is blood flow. I spoke with Dr. Van who states if he is having significant pain he can be admitted to the medicine service, n.p.o. at midnight, and he will do surgery to remove the mass tomorrow. Radiography Diagnostic Testing: Clinical Impression(s) from Imaging Studies Testicular Ultrasound 03/05/25 14:55 IMPRESSION: 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 Additional differential within the right testicle is torsion. Small hydrocele within the right. Reading Location: [facility] Discharge Plan Triage Chief Complaint: Male Pain/Injury ED Midlevel Provider: Batsheva García ED Provider: Kobe Pisano Dx/Rx/DC Orders Clinical Impression: Pain in right testicle, Mass of right testicle Prescriptions: New hydrocodone-acetaminophen 5-325 mg tablet 1 tab PO Q6H PRN PRN (Reason: Pain) 3 Days Qty: 12 0RF ondansetron 4 mg tablet,disintegrating 4 mg PO Q6H PRN (Reason: nausea and vomiting) Qty: 12 0RF No Action gabapentin 100 mg capsule 100 mg PO TID Stand Alone Forms: ED Work / School Excuse Primary Care Provider: Mitali Mcnair NP Referrals: Feliz Van MD [Med Staff - Active Staff] - Mitali Mcnair NP, TECHNICAL SPECIALIST-C [Primary Care Provider] - Activity Restrictions/Additional Instructions: The ultrasound shows no significant changes from yesterday. The mass is the same size. Call the urologist tomorrow to schedule an appointment. You can take ibuprofen 600 mg every 6 hours. Do not take it more frequently than this. I prescribed hydrocodone which can be taken every 6 hours. This medication can cause nausea, sedation, and constipation. I recommend you take a stool softener like MiraLAX or Dulcolax while using this medicine. Print Language: [place] Disposition Disposition: Home, Self Care Discharge Date/Time: 03/05/25 17:30
[2025-03-05] MEDS: HYDROcodone Bitartrate/Apap 5/325 Tablet PO (14:53)
--- NOTE | 2025-03-05 14:55 | US_ITS ---
PROCEDURE: TESTICULAR WITH ARTERIAL FLOW 03/05/2025 REASON FOR EXAM: RIGHT TESTICLE PAIN TECHNIQUE: TESTICULAR WITH ARTERIAL FLOW COMPARISON: 03/04/2025 FINDINGS: Right testicle measures 4.4 x 3.6 x 2.6 cm and right epididymis measures 1.0 x 1.1 x 1.0 cm. Complex vascular mass is noted within the right testicle measuring 3.3 x 2.6 x 2.4 cm, grossly stable in size. Additional differential within the right testicle is torsion. Small hydrocele within the right. Left testicle measures 3.7 x 2.3 x 1.3 cm and left epididymis measures 0.7 x 1.3 x 0.9 cm. Cyst within the left epididymis measuring 0.3 x 0.4 x 0.2 cm. Normal vascular flow is noted within the left testicle. No hydrocele or varicocele of the left. US/Testicular with Arterial Flow IMPRESSION: Complex vascular mass within the right testicle measuring 3.3 x 2.6 x 2.4 cm, g rossly stable in size. Additional differential within the right testicle is torsion. Small hydrocele within the right. Reading Location: [id number]
[2025-03-05 17:27] VITALS: BP 124/69; PULSE 52; RESP 18; TEMP 36.6; O2SAT 100
--- NOTE | 2025-03-05 18:06 | HP.PCM.HOS_ITS ---
HPI - General General Date of Admission: 03/05/25 Date of Service: 03/05/25 Chief Complaint: Right testicular pain HPI Narrative JESSICA KINGSLEY, is a 19-year-old male presented [facility] 03/05/2025 with continued right testicular pain and swelling that has been going on for 1 week. Seen in the ED the day prior and had testicular ultrasound which showed complex vascular mass. Dr. Van reviewed it and thought it was testicular cancer and patient was discharged with plans for outpatient follow- up. Since yesterday he has been active and moving things around but this morning he woke up with increased pain and swelling of the testicle. Ultrasound redemonstrates the complex vascular mass in the right testicle and there is blood flow per radiologist to discussed with ED provider. ED spoke with Dr. Van who recommended he be admitted to medicine service, n.p.o. at midnight, and he will do surgery to remove the mass tomorrow. Hospitalist contacted for admission. In the ED patient afebrile, heart rate 73 with blood pressure 117/80, respiratory rate 19 and pulse ox 99% on room air. Labs completed the day prior and UA were benign. Patient evaluated at bedside. He reports he said the right sided testicular pain for the past week, is feeling little bit better now with the medications he received in the ED but notes the pain is starting to come back some, no fevers or chills, does smoke about a pack a day, has been very active, intermittently will get tingling in the tips of the first 3 fingers on his left hand and sometimes he will feel little bit weak in that area, presently only little bit of tingling in the tip of his middle finger without any weakness. Reports sometimes he gets difficulty urinating when the pain in his testicles severe, no abdominal pain or diarrhea [facility] Medical History Depression Anxiety Home Medications ?Medication ?Instructions ?Recorded ?Last Taken ?Type hydrocodone-acetaminophen 5-325mg 1 tab PO Q6H PRN PRN Pain 3 days 03/05/25 Unknown Rx 5mg-325mg #12 TABLETS ondansetron 4 mg disintegrating 4 mg PO Q6H PRN nausea and 03/05/25 Unknown Rx tablet vomiting #12 tabs Allergy/AdvReac Type Severity Reaction Status Date / Time No Known Allergies Allergy Verified 03/05/25 14:35 Surgical History Status post open reduction and internal fixation (ORIF) of fracture Social History Smoking Status: Current every day smoker tobacco type: cigarettes and e- cigarettes alcohol intake: current alcohol intake frequency: a few times a month substance use type: marijuana ROS ROS Narrative General: Denies fever/chills HENT: Denies headache, denies stuffy nose, denies sore throat EYES: Denies changes in vision Resp: Denies cough, denies shortness of breath Cardiac: Denies chest pain GI: Denies abdominal pain, denies changes in bowel, denies nausea/vomiting : Right-sided scrotal pain, sometimes difficulty in urinating when the pain is severe Extremity: Denies swelling MSK: Denies weakness Neuro: Gets some tingling intermittently in the tips of his fingers on the left hand, first 3 fingers specifically Heme: Denies any bleeding or bruising Skin: Denies rashes Psychiatric: No complaints voiced Vital Signs Vital Signs Vital Signs: 03/05/25 14:33 03/05/25 17:27 Temperature 98.3 F 97.9 F Temperature Source Oral Pulse Rate 73 52 L Respiratory Rate 19 H 18 Blood Pressure 117/80 124/69 H Blood Pressure Mean 92 87 Pulse Ox 99 100 Weight Weight: 88.451 kg Body Mass Index (BMI) 28.8 Physical Exam Narrative General: Alert, oriented, no apparent distress HEENT: Atraumatic, normocephalic Eyes: Anicteric, normal conjunctiva, extraocular movements grossly intact Neck: Supple Respiratory: Clear to auscultation bilaterally, normal respiratory effort Cardiovascular: Regular rate and rhythm GI: Soft, nontender, nondistended : Does have some pain on palpation of right testicle, right testicle is also elevated compared to left, no left-sided changes or pain Extremities: No edema Musculoskeletal: Moving all extremities Neuro: No overt focal neurological deficits Skin: No rashes appreciated Psych: Cooperative Results Lab / Micro Data 03/05/25 18:00 03/05/25 18:00 Imaging Radiology Impression Testicular Ultrasound 03/05/25 14:55 IMPRESSION: 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 Additional differential within the right testicle is torsion. Small hydrocele within the right. Reading Location: [facility] Assessment & Plan Assessment/Plan (1) Mass of right testicle: (2) Pain in right testicle: PLAN: Plan # Pain in right testicle -Ultrasound with complex vascular mass -Per ED note radiologist reported blood flow -Given patient came back to the ED with continued pain Dr. Van recontacted and will take patient to surgery tomorrow -He recommended admitting to medicine and keep patient n.p.o. at midnight -Supportive care #Tobacco use -Advise cessation -Nicotine replacement available if desired #DVT ppx: SCDs Felecia Roland MD Charges/Coding Visit Charges Inpatient E&M: 36875 Init Hosp L1
[2025-03-05 18:08] LABS: Hematocrit 40.0 % (40-54); Hemoglobin 13.4 g/dL (13.0-16.5); Immature Granulocytes Count 0.020 X10^3/uL (0.0-0.0); Mean Corp Hgb Conc 33.5 g/dL (32-36); Mean Corpuscular Volume 85.5 fL (80-94); Mean Platelet Vol. 9.6 fl (6.2-12.0); NRBC Flagged by Analyzer 0 % (0-5); Platelet Count 378 K/mm3 (150-450); RBC Distribution Width CV 13.4 % (11.6-14.6); RBC Distribution Width SD 41.9 fl (35.1-43.9); Red Blood Count 4.68 M/mm3 (4.6-6.2); White Blood Count 7.6 K/mm3 (4.4-11.0)
--- NOTE | 2025-03-05 18:10 | CASEMGMT ---
Care Management Face to Face with patient for initial transition planning/care coordination assessment in the ED.? This abstract writer introduced self and role at [facility]. Patient alert and oriented. Patient willing to participate in assessment and is able to answer all questions appropriately.? Care providers, pharmacy, and demographics verified. Admitting Diagnosis: Mass of right testicle Other diagnosis history: Including but not limited to: Depression and Anxiety PCP: Dr. Mitali Mcnair Specialists: None currently but has a new referral for Urology with Dr. Van. Preferred Pharmacy: [facility] Insurance: Medicaid/[employer] Prescription Benefit: Yes Living Will/HPOA: No but interested in obtaining. ? LNOK: Patient?s mother and one brother are both .? Patient has a father, younger brother (age 17) and a grandmother (Lauren Blunt). Living Arrangements: Patient lives at home with his father and [id number]. Transportation: Patient drives. Patient denied any transportation barriers. DME: Denied HHC: Denied SNF/Rehab: Denied Community Resources: Denied Behavioral Health History: Depression, Anxiety and ADHD. Patient had a recent ED visit on 01/29/25 for depression with suicidal ideation however was discharged home. Patient denied any history/involvement with counseling however stated he is going to talk with his doctor about options for medication management.? call circuit worker also provided education about psychiatry and talk therapy at which point, patient verbalized a preference for medication management of symptoms and will progress from there to additional resources if needed. Patient goals: Patient wishes to discharge home when medically ready. Patient denies any further needs or concerns at this time. Disposition Plan: admission to acute; RN CM/SW to follow for discharge planning needs that may arise. Sonya Alexandre, BIOLOGICAL PHOTOGRAPHER, SCHEDULE ANNOUNCER
--- OUTSIDE RECORDS SUMMARY | 2025-03-05 18:19 | XMS RPT_ITS | CCD ---
Author Organization [facility] Care Team Providers Care Chicle Grinder Feeder Name Role Phone Vasquez Mo[place] Primary Care Provider [phone] Prakash Zhao MD Primary Care Provider [phone] JOSE ELIAS CALVIN, VASQUEZ Arevalo Primary Care Physician [phone] Unavailable Primary Care Provider UnavailOMAR Carrillo Attending [...] Prakash Zhao MD Primary Care Provider [phone] PRAKASH ZHAO Primary Care Unavailable ANDREI, PRAKASH [...] Vidhi HAINES-C, Mitali Primary Care Provider Aby VICE PRESIDENT RESEARCH.CHILDREN'S BOOK AUTHOR, Megan M Unavailable GIRMA BOYD Attending Unavailable PRAKASH ZHAO Primary Care Unavailable MEHRDAD VICE PRESIDENT RESEARCH-CHILDREN'S BOOK AUTHOR, DARREN Gonzales Attending Linus MOSHER VICE PRESIDENT RESEARCH-CHILDREN'S BOOK AUTHOR, MITALI A Primary Care Un available REG SHARPE DO Attending Unavailable VIDHI VICE PRESIDENT RESEARCH-CHILDREN'S BOOK AUTHOR, MITALI A Primary Care Un available SARBJIT CALVIN, DR KIARA Koenig Attending Unavailcésar MOSHER VICE PRESIDENT RESEARCH-CHILDREN'S BOOK AUTHOR, MITALI A Primary Care Un available Christiano CALVIN, Dr. Wesley Attending Provider [phone] Norris MARSHALL, Dr. Bullock Referring Provider Norris MARSHALL, Dr. Bullock Emergency Provider Yvette Niteo Attending Unavailable Felecia Roland Admitting Unavailable Care Physician, No Primary Primary Care Unava ilable Yuriy Ding Consulting UnavailFelecia Morgan Consulting Unavailable Yvette Nieto Consulting Unavailable Jacques Paul Attending Unavailable Care Physician, No Primary Primary Care Unava ilable Lupillo Alvarado Attending Unavailable Vidhi CHARGING BOARD OPERATOR, [place] Primary Care Unavailcésar Mosher CHARGING BOARD OPERATOR, [place] Primary Care UnavailKobe Canas Attending Unavailable Kobe Pisano Referring Unavailable Vidhi CHARGING BOARD OPERATOR, Mitali Primary Care UnavailKobe Canas Attending Unavailable Felecia Roland Consulting Unavailable Yvette Nieto Attending Unavailable Care Physician, No Primary Primary Care Unava ilable Felecia Roland Admitting Unavailable Yuriy Ding Consulting UnavailLupillo Ribeiro Attending Unavailable Care Physician, No Primary Primary Care Unava ilable Felecia Roland Attending Unavailable Medications Current Medications Medication Drug Class(es) Dates [...] Quantity: 10.0 Unit: tab(s) Repeat number: 1 acetaminophen 325 mg / HYDROcodone bitartrate 5 mg oral tablet (1 source) Opioid Agonist Start: 03-05-2025 take 1 tablet by mouth every six hours as needed for pain Hydrocodone-Acet aminophen 5-325 mg tablet Active 1 {tbl} PO EVERY 6 HOURS NEEDED as needed for Pain 12 3 0 March 05, 2025 Pain in right testicle Right testicular pain albuterol MDI (90 mcg/inh) CFC free inhalation [...] Ordered docusate sodium 50 mg / sennosides, senior living 8.6 mg oral tablet (4 sources) Start: [...] 30 mg gabapentin 100 mg oral capsule (8 sources) Anti-epileptic Agent Start: 02-08-2025 End: 03-10-2025 take 1 capsule by mouth three times daily Gabapentin 100 mg capsule Active 100 mg PO THREE TIMES A DAY March 05, 2025 12:00am Start: 06-17-2022 End: 06-28-2022 take 1 capsule [...] food/milk, # 30 tab(s), 0 Refill(s), Pharmacy: [facility]/pharmacy #[id number], Right wrist pain, 175, cm, [...] once daily. 85 g 01/29/2024 Active ondansetron 4 mg disintegrating oral tablet (4 sources) Serotonin-3 Receptor Antagonist Start: 03-05-2025 take 1 tablet by mouth every six hours as needed for nausea and vomiting Ondansetron 4 mg tablet,disinteg rating Active 4 mg PO EVERY 6 HOURS as needed for nausea and vomiting 12 March 05, 2025 12:00am Start: 06-21-2022 End: 06-21-2022 ondansetron (ZOFRAN) injecti on 4 mg Start: 06-21-2022 take 1 tablet by jose th three times daily as needed for nausea ondansetron (ZOFRAN) 4 MG tablet Take 1 tablet by mouth 3 times daily as needed for Nausea or Vomiting 30 tablet 0 06/21/2022 Active ondansetron (ZOFRAN-ODT) disintegrating tablet 4 mg (1 source) Start: 06-17-2022 ondansetron (ZOFRAN-ODT) disintegrating tablet 4 mg terbinafine hydrochloride 10 mg/ml topical cream (1 [...] mg / clavulanate 125 mg oral tablet (3 sources) Penicillin-class Antibacterial Start: 06-02-2024 End: 01-29-2025 [...] qDay, # 90 tab(s), 0 Refill(s), Pharmacy: [facility]/pharmacy #[id number], Anxiety, 175, cm, 08/11/24 13:41:00 EST, Height, kg, 08/11/24 13:41:00 EST, Dosing Weight Start Date: 08/11/24 Stop Date: 11/09/24 Status: Ordered Quantity: 90.0 Unit: tab(s) Repeat number: 1 Indications: Anxiety disorder, unspecified; ibuprofen 400 mg oral tablet (15 sources) Nonsteroidal Anti-inflammatory Drug Start: 06-02-2024 End: [...] mg/ml injection (1 source) Opioid Agonist Start: 2 End: 2 morphine sulfate (PF) injection 4 mg oxyCODONE hydrochloride 5 mg oral tablet (6 sources) Opioid Agonist Start: 4 End: 5 take 1 tablet by mouth every six [...] IVPB extended infusion (premix) polyethylene glycol 3350 [id number] mg powder for oral solution (1 source) Osmotic Laxative Start: 06-17-2022 17 g, Oral, DAILY, First dose on Thu06/17/22 at 1045, Until Discontinued Stir and dissolve one packet of powder (17 g) in any 4 to 8 ounces of beverage (cold, hot or room temperature) then drink predniSONE 20 mg oral tablet (5 sources) Start: 05-27-2024 End: 06-02-2024 take 2 [...] Date: 12/23/22 Stop Date: 12/28/22 Status: Ordered sertraline 25 mg oral tablet (5 sources) Serotonin Reuptake Inhibitor Start: 01-29-2025 End: 03-05-2025 take 1 tablet by mouth at bedtime Sertraline (Zoloft) 25 mg tablet Discontinued 25 mg PO AT BEDTIME 30 0 January 29, 2025 12:00am March 05, 2025 3:28pm Start: 09-28-2024 End: 10-28-2024 sertraline 25 mg oral tablet Dose : 25 mg = 1 tab(s), Oral, qDay, # 30 tab(s), 0 Refill(s), Pharmacy: [facility]/pharmacy #[id number], Generalized anxiety disorder, 173.3, cm, 09/28/24 15:05:00 EST, Height, kg, 09/28/24 15:05:00 EST, Dosing Weight Start Date: 09/28/24 Stop Date: 10/28/24 Status: Ordered Quantity: 30.0 Unit: tab(s) Repeat number: 1 Indications: Generalized anxiety disorder; 50 ml sodium chloride 9 mg/m l [...] Da te Episodic/Chronic Acute and chronic tonsillitis (3 sources) Acute tonsillitis; Translations: [Acute tonsillitis, unspecified] 06-02-2024 Episodic Anxiety disorders (2 sources) Generalized anxiety disorder 09-28-2024 Chronic Chronic obstructive pulmonary disease and bronchiectasis (1 source) Bronchitis; Translations: [Bronchitis, not specified as acute or chronic] Onset: 3 Episodic Diseases of white blood cells (4 sources) Leukocytosis; Translations: [Elevated white blood cell [...] [Other fatigue] Onset: 2 Episodic Mood disorders (3 sources) Depressive disorder; Translations: [Depression] 01-29-2025 Chronic [...] other orthopedic aftercare] Episodic Other circulatory disease (3 sources) Elevated blood-pressure reading without diagnosis of [...] cough] 03-18-2024 Episodic Other male genital disorders (2 sources) Testicular mass; Translations: [Other specified disorders of the male genital organs] 03-04-2025 Episodic Other male genital disorders (2 sources) Pain of right testicle; Translations: [Right testicular pain] 03-04-2025 Episodic Other male genital disorders (1 source) Right testicular pain; Translations: [Right testicular pain] Onset: 5 Episodic Other nervous system disorders (1 source) [...] Translations: [Pain in throat] Onset: 2 Episodic Other upper respiratory infections (8 sources) Sore throat symptom; Translations: [Acute pharyngitis, unspecified] Onset: 4 Episodic Residual codes; unclassified (1 source) Early satiety; Translations: [Early satiety] Episodic Residual codes; unclassified (6 sources) History of alcohol abuse; Translations: [Personal history of other specified conditions] Onset: 4 03-03-2024 Episodic Skin and subcutaneous tissue infections (4 sources) Abscess of neck; Translations: [Cutaneous abscess of neck] Onset: 4 06-04-2024 Episodic Substance-related disorders (7 sources) Tobacco user; Translations: [Nicotine dependence, unspecified, uncomplicated] Onset: 4 03-03-2024 Chronic Suicide and intentional self-inflicted injury (3 sources) Suicidal thoughts; Translations: [Suicidal ideations] 01-29-2025 Episodic Unclassified (1 source) Contact with and (suspected) exposure to COVID-19; Translations: [Contact with and (suspected) exposure to COVID-19] Onset: 2 Unclassified (2 sources) Injury of right wrist 09-28-2024 Viral infection (7 sources) Viral disease; Translations: [Viral infection, unspecified] Onset: 4 02-29-2024 Episodic Past or Other Problems Problem Classification Problem Date Documented Da te Episodic/Chronic Residual codes; unclassified (1 source) Personal history of other specified conditions; 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, in remission] Onset: 03-03-2024 03-03-2024 Episodic Spondylosis; intervertebral disc disorders; other back problems (3 sources) Nerve root disorder; Translations: [Radiculopathy, site unspecified] Onset: 06-24-2024 Episodic Unclassified (1 source) Contact with and (suspected) exposure to COVID-19; Translations: [Contact with and (suspected) exposure to COVID-19] Onset: 06-21-2022 Results Test Name Value Interpretation Reference Range Facility Testicular with Arterial Kelvin won 03-05-2025 Testicular with Arterial Flow [facility] [address] [place], [place] [id number] Testicular with Arterial Flow MR#: [id number] Acct: [id number] Name: JESSICA BARR Rep #: [id number] : 2005 M 19 From: Mauricio Schrader PCP: ALEJANDRO Brown Status: REG ER Study: Testicular with Arterial Flow Date of Exam: Exam# [id number] Ordering Dr: Batsheva García ADDENDUM by Dr. Mauricio Obrien MD on 03/05/[address] Pisano was notified by Mauricio Obrien at 5:21 pm EST on 03/05/2025. Reading Location: [id number] 03/05/25 1724 Date cc: ALEJANDRO Mosher; KOFI Amato * Signed PROCEDURE: TESTICULAR WITH ARTERIAL FLOW 03/05/2025 REASON FOR EXAM: RIGHT TESTICLE PAIN TECHNIQUE: TESTICULAR WITH ARTERIAL FLOW COMPARISON: 03/04/2025 FINDINGS: Right testicle measures 4.4 x 3.6 x 2.6 cm and right epididymis measures 1.0 x 1.1 x 1.0 cm. Complex vascular mass is noted within the right testicle measuring 3.3 x 2.6 x 2.4 cm, grossly stable in size. Additional differential within the right testicle is torsion. Small hydrocele within the right. Left testicle measures 3.7 x 2.3 x 1.3 cm and left epididymis measures 0.7 x 1.3 x 0.9 cm. Cyst within the left epididymis measuring 0.3 x 0.4 x 0.2 cm. Normal vascular flow is noted within the left testicle. No hydrocele or varicocele of the left. 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 Additional differential within the right testicle is torsion. Small hydrocele within the right. Reading Location: [id number] CC: ALEJANDRO Mosher; KOFI Amato Ride Mechanic: Signed Normal [facility] Absolute lymphocyte countOrd ered By: Kobe Pisano on 03-04-2025 Lymphocytes Auto (Unsp spec) [#/Vol] 1.06 10*3/uL 0.83-4.51 [facility] Absolute neutrophil countOrd ered By: Kobe Pisano on 03-04-2025 Neutrophils (Bld) [#/Vol] 5.7 10*3/uL 2.0-7.7 [facility] Amorphous sediment detection in urine sediment by light microscopyOrdered By: Kobe Pisano on 03-04-2025 Amorphous sediment LM Ql (Urine sed) 1+ [facility] Anion gap in Serum or Plasma Ordered By: Kobe Pisano on 03-04-2025 Anion gap [Moles/Vol] 10 mmol/L 5-15 [facility] Automated lymphocyte count a s percentage of total leukocytesOrdered By: Kobe Pisano on 03-04-2025 Lymphocytes/100 WBC Auto (Unsp spec) 13.7 % Low 19-41 [facility] BUN/creatinine ratioOrdered By: Kobe Pisano on 03-04-2025 Urea nitrogen/Creatinine [Mass ratio] 10.1 mg/mg 10-20 [facility] Basophil percentageOrdered B y: Kobe Pisano on 03-04-2025 Basophils/100 WBC (Bld) 0.6 % 0-[address] [facility] Bilirubin Test strip Ql (U)O rdered By: Kobe Pisano on 03-04-2025 Bilirubin Ql (U) Negative Negative [facility] Bilirubin, totalOrdered By: Kobe Pisano on 03-04-2025 Bilirubin [Mass/Vol] 0.65 mg/dL 0.00-1.30 [facility] CBC W/Diff, Automatedon 02-06 Absolute Lymph 1.06 X10 3/uL Normal 0.83-4.51 [facility] Comment on above: Performed By: #### L 100.0100, L500.4050 #### [facility] [address] [place], [address] Absolute Neut 5.7 X10 3/uL Normal 2.0-7.7 [facility] Comment on above: Performed By: #### L 100.0100, L500.4050 #### [facility] [address] [place], [address] Basophils/100 WBC (Bld) 0.6 % Normal 0-[address] [facility] Comment on above: Performed By: #### L 100.0100, L500.4050 #### [facility] [address] [place], [address] Eosinophils/100 WBC (Bld) 1.7 % Normal 0-5 [facility] Comment on above: Performed By: #### L 100.0100, L500.4050 #### [facility] [address] [place], [address] Erythrocyte distribution width (RBC) [Ratio] 13.3 % Normal 11.6-14.6 [facility] Comment on above: Performed By: #### L 100.0100, L500.4050 #### [facility] [address] [place], [address] Hematocrit (Bld) [Volume fraction] 42.1 % Normal 40-54 [facility] Comment on above: Performed By: #### L 100.0100, L500.4050 #### [facility] [address] [place], [address] Hemoglobin (Bld) [Mass/Vol] 14.6 g/dL Normal 13.0-16.5 [facility] Comment on above: Performed By: #### L 100.0100, L500.4050 #### [facility] [address] [place], [address] IG% 0.300 Normal 0.0-0.9 [facility] Comment on above: Result Comment: IG% - Immature Granulocytes (promyelocytes, myelocytes and metamyelocytes) > 1% indicates that a LEFT SHIFT is Present. Performed By: #### L 100.0100, L500.4050 #### [facility] [facility] [address] [place], [address] Lymphocytes/100 WBC (Bld) 13.7 % Low 19-41 [facility] Comment on above: Performed By: #### L 100.0100, L500.4050 #### [facility] [address] [place], [address] MCH (RBC) [Entitic mass] 29.4 pg Normal 27.0-32.0 [facility] Comment on above: Performed By: #### L 100.0100, L500.4050 #### [facility] [address] [place], [address] MCHC (RBC) [Mass/Vol] 34.7 g/dL Normal 32-36 [facility] Comment on above: Performed By: #### L 100.0100, L500.4050 #### [facility] [address] [place], [address] MCV (RBC) [Entitic vol] 84.7 fL Normal 80-[address] [facility] Comment on above: Performed By: #### L 100.0100, L500.4050 #### [facility] [address] [place], [address] Monocytes/100 WBC (Bld) 9.8 % Normal 0-[address] [facility] Comment on above: Performed By: #### L 100.0100, L500.4050 #### [facility] [address] [place], [address] Neutrophils/100 WBC (Bld) 73.9 % High 47-70 [facility] Comment on above: Performed By: #### L 100.0100, L500.4050 #### [facility] [address] [place], [address] Nucleated RBC (Bld) [#/Vol] 0 10*3/uL Normal 0-5 [facility] Comment on above: Performed By: #### L 100.0100, L500.4050 #### [facility] [address] [place], [address] Platelet mean volume (Bld) [Entitic vol] 9.6 fL Normal 6.2-12.0 [facility] Comment on above: Performed By: #### L 100.0100, L500.4050 #### [facility] [address] [place], [address] Platelets (Bld) [#/Vol] 386 10*3/uL Normal 150-450 [facility] Comment on above: Performed By: #### L 100.0100, L500.4050 #### [facility] [address] [place], [address] RBC (Bld) [#/Vol] 4.97 10*6/uL Normal 4.6-6.2 [facility] Comment on above: Performed By: #### L 100.0100, L500.4050 #### [facility] [address] [place], [address] RDW SD 41.2 fl Normal 35.1-43.9 [facility] Comment on above: Performed By: #### L 100.0100, L500.4050 #### [facility] [address] [place], [address] WBC (Bld) [#/Vol] 7.8 10*3/uL Normal 4.4-11.0 [facility] Comment on above: Performed By: #### L 100.0100, L500.4050 #### [facility] [address] [place], [address] Carbon dioxide, total [Moles /volume] in Central venous bloodOrdered By: Kobe Pisano on 03-04-2025 CO2 [Moles/Vol] 24.1 mmol/L 21.0-32.0 [facility] Chloride assayOrdered By: Aleksandr Pisano on 03-04-2025 Chloride [Moles/Vol] 103 mmol/L 98-108 [facility] Comprehensive Metabolic Prof ilon 03-04-2025 Albumin [Mass/Vol] 4.1 g/dL Normal 3.5-5.0 [facility] Comment on above: Performed By: #### L 100.0100, L500.4050 #### [facility] [address] [place], [address] Albumin/Globulin [Mass ratio] 1.7 {ratio} Normal 0.9-2.4 [facility] Comment on above: Performed By: #### L 100.0100, L500.4050 #### [facility] [address] [place], [address] ALK PHOS 74 U/L Normal 40-129 [facility] Comment on above: Performed By: #### L 100.0100, L500.4050 #### [facility] [address] [place], [address] ALT [Catalytic activity/Vol] 10 U/L Normal <=46 [facility] Comment on above: Performed By: #### L 100.0100, L500.4050 #### [facility] [address] [place], [address] AST [Catalytic activity/Vol] 20 U/L Normal <=37 [facility] Comment on above: Performed By: #### L 100.0100, L500.4050 #### [facility] [address] [place], [address] Bilirubin [Mass/Vol] 0.65 mg/dL Normal 0.00-1.30 [facility] Comment on above: Performed By: #### L 100.0100, L500.4050 #### [facility] [address] [place], [address] BUN/CRE 10.1 RATIO Normal 10-20 [facility] Comment on above: Performed By: #### L 100.0100, L500.4050 #### [facility] [address] [place], [address] Calcium [Mass/Vol] 9.4 mg/dL Normal 7.6-11.0 [facility] Comment on above: Performed By: #### L 100.0100, L500.4050 #### [facility] [address] [place], [address] Chloride [Moles/Vol] 103 mmol/L Normal 98-108 [facility] Comment on above: Performed By: #### L 100.0100, L500.4050 #### [facility] [address] [place], [address] CO2 [Moles/Vol] 24.1 mmol/L Normal 21.0-32.0 [facility] Comment on above: Performed By: #### L 100.0100, L500.4050 #### [facility] [address] [place], [address] Creatinine [Mass/Vol] 0.83 mg/dL Normal 0.70-1.20 [facility] Comment on above: Performed By: #### L 100.0100, L500.4050 #### [facility] [address] [place], [address] ECRCL 140.78 ml/min Normal 50-250 [facility] Comment on above: Performed By: #### L 100.0100, L500.4050 #### [facility] [address] [place], [address] GAP 10 Normal 5-15 [facility] Comment on above: Performed By: #### L 100.0100, L500.4050 #### [facility] [address] [place], [address] GFR/1.73 sq M.predicted among non-blacks MDRD (S/P/Bld) [Vol rate/Area] 128 mL/min/{1.73_m2} Normal >60 [facility] Comment on above: Result Comment: mL/m in/1.73m2 CKD-EPI Creatinine Equation (2020) Performed By: #### L 100.0100, L500.4050 #### [facility] [address] [place], [address] Globulin (S) [Mass/Vol] 2.4 g/dL Normal 2.2-4.[address] [facility] Comment on above: Performed By: #### L 100.0100, L500.4050 #### [facility] [address] [place], [address] Glucose [Mass/Vol] 108 mg/dL High 70-99 [facility] Comment on above: Performed By: #### L 100.0100, L500.4050 #### [facility] [address] [place], [address] Potassium [Moles/Vol] 4.7 mmol/L Normal 3.3-5.1 [facility] Comment on above: Performed By: #### L 100.0100, L500.4050 #### [facility] [address] [place], [address] Sodium [Moles/Vol] 137 mmol/L Normal 133-145 [facility] Comment on above: Performed By: #### L 100.0100, L500.4050 #### [facility] [address] [place], [address] T PROT 6.5 g/dL Normal 5.9-8.4 [facility] Comment on above: Performed By: #### L 100.0100, L500.4050 #### [facility] [address] [place], [address] Urea nitrogen [Mass/Vol] 8 mg/dL Normal 4-19 [facility] Comment on above: Performed By: #### L 100.0100, L500.4050 #### [facility] [address] [place], [address] Emergency Department Summary on 03-04-2025 Emergency Department Summary [facility] Medical Records Department [address] [place] [address] Emergency Department Summary 03/04/25 MR#: [id number] Acct: [id number] Name: JESSICA BARR Rep #: [id number] : 2005 19 From: Kobe Pisano DO [...] injuries denies any painful urination hematuria polyuria PFSH PFSH Medical History Depression Anxiety Home [...] follow commands knew that he was at [facility] year is 2024 Skin: Warm, dry, [...] him followi (more content not included)... Normal [facility] Eosinophil percentageOrdered By: Kobe Pisano on 03-04-2025 Eosinophils/100 WBC (Bld) 1.7 % 0-5 [facility] Erythrocyte distribution wid th ratioOrdered By: Kobe Pisano on 03-04-2025 Erythrocyte distribution width (RBC) [Ratio] 13.3 % 11.6-14.6 [facility] Erythrocyte distribution wid th standard deviationOrdered By: Kobe Pisano on 03-04-2025 Erythrocyte distribution width (RBC) [Ratio] 41.2 fl 35.1-43.9 [facility] Glomerular filtration rate ( GFR) estimation/1.73 sq m using serum, plasma, or whole bOrdered By: Kobe Pisano on 03-04-2025 GFR/1.73 sq M.predicted among non-blacks MDRD (S/P/Bld) [Vol rate/Area] 128 mL/min/{1.73_m2} >60 [facility] Comment on above: mL/min/1.73m2 CKD-EP I Creatinine Equation (2020) Hematocrit Auto (Bld) [Volum e fraction]Ordered By: Kobe Pisano on 03-04-2025 Hematocrit (Bld) [Volume fraction] 42.1 % 40-54 [facility] Hemoglobin measurementOrdere d By: Kobe Pisano on 03-04-2025 Hemoglobin (Bld) [Mass/Vol] 14.6 g/dL 13.0-16.5 [facility] Immature granulocytes/100 WB C Auto (Bld)Ordered By: Kobe Pisano on 03-04-2025 Immature granulocytes/100 WBC (Bld) 0.300 % 0.0-0.9 [facility] Comment on above: IG% - Immature Granu locytes (promyelocytes, myelocytes and metamyelocytes) > 1% indicates that a LEFT SHIFT is Present. Ketones Test strip Ql (U)Ord ered By: Kobe Pisano on 03-04-2025 Ketones Ql (U) Negative Negative [facility] - Chemistry and C hemistry - challengeOrdered By: Kobe Pisano on 03-04-2025 AST [Catalytic activity/Vol] 20 U/L <38 [facility] MCV (mean corpuscular volume ) determinationOrdered By: Kobe Pisano on 03-04-2025 MCV (RBC) [Entitic vol] 84.7 fL 80-[address] [facility] Mean corpuscular hemoglobin (MCH) determinationOrdered By: Kobe Pisano on 03-04-2025 MCH (RBC) [Entitic mass] 29.4 pg 27.0-32.0 [facility] Mean corpuscular hemoglobin concentration (MCHC) determinationOrdered By: Kobe Pisano on 03-04-2025 MCHC (RBC) [Mass/Vol] 34.7 g/dL 32-36 [facility] Mean platelet volume determi nationOrdered By: Kobe Pisano on 03-04-2025 Platelet mean volume (Bld) [Entitic vol] 9.6 fL 6.2-12.0 [facility] Microscopic analysis of urin e for red blood cells (RBC)Ordered By: Kobe Pisano on 03-04-2025 Microscopic analysis of urine for red blood cells (RBC) 0 SEEN /hpf 0-5 [facility] Monocyte percentageOrdered B y: Kobe Pisano on 03-04-2025 Monocytes/100 WBC (Bld) 9.8 % 0-[address] [facility] Mucus LM Ql (Urine sed)Order ed By: Kobe Pisano on 03-04-2025 Mucus Ql (Urine sed) 0 SEEN /hpf [facility] Neutrophil percentageOrdered By: Kobe Pisano on 03-04-2025 Neutrophils/100 WBC (Bld) 73.9 % High 47-70 [facility] Nitrite Test strip Ql (U)Ord ered By: Kobe Pisano on 03-04-2025 Nitrite Ql (U) Negative Negative [facility] Nucleated red blood cell per centageOrdered By: Kobe Pisano on 03-04-2025 Nucleated RBC/100 WBC (Bld) [Ratio] 0 % 0-5 [facility] Platelet countOrdered By: Aleksandr Pisano on 03-04-2025 Platelets (Bld) [#/Vol] 386 10*3/uL 150-450 [facility] Potassium measurement (mass/ volume)Ordered By: Kobe Pisano on 03-04-2025 Potassium (Unsp spec) [Mass/Vol] 4.7 mmol/L 3.3-5.1 [facility] Protein Test strip Ql (U)Ord ered By: Kobe Pisano on 03-04-2025 Protein Ql (U) 15 mg/dl High Negative [facility] RBC Auto (Bld) [#/Vol]Ordere d By: Kobe Pisano on 03-04-2025 RBC (Bld) [#/Vol] 4.97 10*6/uL 4.6-6.2 [facility] Serum creatinine measurement (mass/volume)Ordered By: Kobe Pisano on 03-04-2025 Creatinine [Mass/Vol] 0.83 mg/dL 0.70-1.20 [facility] Serum globulin measurementOr dered By: Kobe Pisano on 03-04-2025 Globulin (S) [Mass/Vol] 2.4 g/dL 2.2-4.[address] [facility] Serum glucose measurement (m ass/volume)Ordered By: Kobe Pisano on 03-04-2025 Glucose [Mass/Vol] 108 mg/dL High 70-99 [facility] Serum or plasma alanine duval otransferase (ALT) measurementOrdered By: Kobe Pisano on 03-04-2025 ALT [Catalytic activity/Vol] 10 U/L <47 [facility] Serum or plasma albumin erica urement (mass/volume)Ordered By: Kobe Pisano on 03-04-2025 Albumin [Mass/Vol] 4.1 g/dL 3.5-5.0 [facility] Serum or plasma albumin/glob ulin mass ratioOrdered By: Kobe Pisano on 03-04-2025 Albumin/Globulin [Mass ratio] 1.7 {ratio} 0.9-2.4 [facility] Serum or plasma alkaline memo sphatase measurementOrdered By: Kobe Pisano on 03-04-2025 ALP [Catalytic activity/Vol] 74 U/L 40-129 [facility] Serum or plasma calcium erica urement (mass/volume)Ordered By: Kobe Pisano on 03-04-2025 Calcium [Mass/Vol] 9.4 mg/dL 7.6-11.0 [facility] Serum or plasma urea nitroge n measurement (mass/volume)Ordered By: Kobe Pisano on 03-04-2025 Urea nitrogen [Mass/Vol] 8 mg/dL 4-19 [facility] Sodium levelOrdered By: Severo Pisano on 03-04-2025 Sodium [Moles/Vol] 137 mmol/L 133-145 [facility] Squamous epithelial cells de tection in urine sediment by light microscopyOrdered By: Kobe Pisano on 03-04-2025 Epithelial cells.squamous LM Ql (Urine sed) 0 SEEN /hpf 0-5 [facility] Testicular with Arterial Kelvin won 03-04-2025 Testicular with Arterial Flow [facility] [address] [place], [place] [address] Testicular with Arterial Flow MR#: [id number] Acct: [id number] Name: JESSICA BARR Rep #: [id number] : 2005 M 19 From: Mauricio Schrader PCP: Mitali Mosher NP-C Status: REG ER Study: Testicular with Arterial Flow Date of Exam: Exam# [id number] Ordering Dr: Kobe Pisano DO PROCEDURE: TESTICULAR [...] testicular torsion. Small right-sided hydrocele. Reading Location: [id number] CC: ALEJANDRO Mosher; Dr. Kobe Pisano, Ride Mechanic: Signed Normal [facility] Total proteinOrdered By: Yaquelin Pisano on 03-04-2025 Protein [Mass/Vol] 6.5 g/dL 5.9-8.4 [facility] Urinalysis, Completeon 03-04 AMORPHOUS 1+ Normal [facility] Comment on above: Order Comment: CLEAN CATCH Performed By: #### L 400.0001 #### [facility] Laboratory [address] [place], [address] BACTERIA 0 SEEN Normal None Seen [facility] Comment on above: Order Comment: CLEAN CATCH Performed By: #### L 400.0001 #### [facility] [address] [place], [address] EPI,SQUAMOUS 0 SEEN Normal 0-5 [facility] Comment on above: Order Comment: CLEAN CATCH Performed By: #### L 400.0001 #### [facility] [address] [place], [address] Mucus Ql (Urine sed) 0 SEEN Normal [facility] Comment on above: Order Comment: CLEAN CATCH Performed By: #### L 400.0001 #### [facility] [address] [place], [address] RBC 0 SEEN Normal 0-5 [facility] Comment on above: Order Comment: CLEAN CATCH Performed By: #### L 400.0001 #### [facility] [address] [place], [place], [id number] WBC 0 SEEN Normal 0-5 [facility] Comment on above: Order Comment: CLEAN CATCH Performed By: #### L 400.0001 #### [facility] [address] [place], [place], [id number] Urine clarityOrdered By: Yaquelin Pisano on 03-04-2025 Clarity (U) Clear Clear [facility] Urine color determinationOrd ered By: Kobe Pisano on 03-04-2025 Color (U) Yellow Yellow [facility] Urine glucose detectionOrder ed By: Kobe Pisano on 03-04-2025 Glucose Ql (U) Normal mg/dl Normal [facility] Urine leukocyte esterase det ection by dipstickOrdered By: Kobe Pisano on 03-04-2025 Leukocyte esterase Test strip Ql (U) Negative Negative [facility] Urine pHOrdered By: Kobe florence on 03-04-2025 pH (U) 8.0 [pH] 5.0 - 8.0 [facility] Urine sediment bacteria coun t by microscopy (number/high power field)Ordered By: Kobe Pisano on 03-04-2025 Bacteria LM.HPF (Urine sed) [#/Area] 0 /[HPF] None Seen [facility] Urine specific gravity measu rementOrdered By: Kobe Pisano on 03-04-2025 Specific gravity (U) [Rel density] 1.015 1.002-1.030 [facility] Urine urobilinogen measureme ntOrdered By: Kobe Pisano on 03-04-2025 Urobilinogen Ql (U) Normal mg/dl Normal [facility] White blood cell (WBC) count Ordered By: Kobe Pisano on 03-04-2025 WBC (Bld) [#/Vol] 7.8 10*3/uL 4.4-11.0 [facility] White blood cell countOrdere d By: Kobe Pisano on 03-04-2025 White blood cell count 0 SEEN /hpf 0-[address] [facility] Darby 02-08-2025 CNPN Telephone (AGPOB1) BLANCAJESSICA BARNETT ([id number]) 1 M Date Time Provider Department 02/08/25 JUSTO SALINAS AGPOB1 During your visit today, we recorded the following information about you: Aura [place] 02/08/2025 2:23 PM Signed ----- Message from [...] which facility was the patient seen at: [facility] bath Was an appointment scheduled (Y/N): N Person calling if other than patient: N Return call to if other than patient: N Best contact number: [phone] Thank you, Mario Kay February 08, 2025 10:20 AM Aura [place] 02/13/2025 2:08 PM Signed Left message to [...] alcohol consumption [Z87.898] 03/03/2024 Encounter Status:Closed by [facility] [employer]PPLY OFFICER AURA SUAZO on 02/13/25 [facility] ALLIED HEALTHon 02-07-2025 ALLIED HEALTH HNO ID: [id number] Author: ANGELO RAMAN RT(R) Service: Radiology Author [...] PATIENT PRESENTS WITH AN IMPLANTABLE OR ATTACHED BOBJ DEVELOPER: No RADIOLOGY DEPARTMENT: General X-ray: Exam(s) Completed: Upper Extremity X-Ray(s): Elbow, left PERIPHERAL IV DATA: Not applicable SIGNED BY: RT Earl(R) February 07, 2025 7:44 AM [facility] ED NOTEon 02-07-2025 ED NOTE HNO ID: [id number] Author: KAM WINKLER RN Service: Emergency Medicine [...] DATE: February 08, 2025 TIME: 10:[address] [facility] ED NOTE HNO ID: [id number] Author: MILY MUNSON RN Service: Emergency Medicine Author Type: Registered Nurse Type: ED Notes Filed: 02/07/2025 08:41 Note Text: Pt verbalized understanding of home going instructions. Normal [facility] ED NOTE HNO ID: [id number] Author: MILY MUNSON RN Service: Emergency Medicine Author Type: Registered Nurse Type: ED Notes Filed: 02/07/2025 07:23 Note Text: Pt c/o several weeks of numbness/tingling of left arm. Denies injury to left arm or neck. Program Development Manager equal and firm. Equal pulses present. Normal [facility] ED PROV NOTEon 02-07-2025 ED PROV NOTE HNO ID: [id number] Author: GIRMA BOYD DO Service: Emergency Medicine [...] Grandmother - Coronary Artery Disease Maternal Grandfather SD - Coronary Artery Disease Paternal Grandfather SD - Breast Cancer Other Social History Tobacco [...] motion of the elbow shoulder and wrist. Fisherman Helper strength intact. Intrinsic muscles of the hand [...] all (more content not included)... Normal [facility] XR ELBOW 2V AP/LAT LTon XR ELBOW [...] erosion. Joint spaces are maintained. IMPRESSION: Unremarkable. Ride Mechanic: ISAAC Transcribe Date/Time: Feb 07 2025 7:53A Dictated by : SHASHA HOUSE MD This examination was interpreted and the report reviewed and electronically signed by: SHASHA HOUSE MD on Feb 07 2025 7:54AM EST [id number] Normal [facility] Emergency Department Summary on 01-29-2025 Emergency Department Summary [facility] Medical Records Department [address] [place] [address] Emergency Department Summary 01/29/25 MR#: [id number] Acct: [id number] Name: JESSICA BARR Rep #: [id number] : 2005 19 From: Lupillo Alvarado MD [...] Commands Oriented (more content not included)... Normal [facility] 36on 10-18-2024 36 Pt seen in [...] a reminder for OPTIONAL repeat imaging. Normal [facility] XR WRIST MINIMUM 3 VIEWS [facility] 08-11-2024 XR WRIST MINIMUM 3 VIEWS [...] 08/11/2024 3:52:26 PM Ordering Provider: DARREN CRONIN [facility] Culture, Blood (WB)on 2023 CUB Blood cultures x2 fr om two different sites No growth in 5 days. Normal [facility] Comment on above: Performed By: #### M 200.1000 #### [facility] [address] [place], [address] CBC W/Diff, Automatedon 05-09 PATH REV Reviewed Normal [facility] Comment on above: Result Comment: Neut rophilic left shift. Thrombocytosis. Clinical correlation necessary. Casimiro Wynn M.D. 06/02/24 AMENDED REPORT 06/02/24 1410 PATH REV previously reported as: January foll Performed By: #### L 100.0100 #### [facility] [address] [place], [address] PATH REV Reviewed Normal [facility] Comment on above: Result Comment: Neut rophilic leukocytosis. Normocytic anemia. Thrombocytosis. Clinical correlation necessary. Casimiro Wynn M.D. 06/02/24 AMENDED REPORT 06/02/24 1407 PATH REV previously reported as: January foll Performed By: #### L 100.0100, L500.2500 ####[facility] [address] [place], [address] Basic Metabolic Profile (BMP )on 06-01-2024 BUN/CRE 24.5 RATIO High 10-20 [facility] Comment on above: Performed By: #### L 100.0100, L500.2500 ####[facility] [address] [place], [address] CA,Total 8.7 mg/dL Normal 8.5-10.1 [facility] Comment on above: Performed By: #### L 100.0100, L500.2500 ####[facility] [address] [place], [address] Chloride [Moles/Vol] 109 mmol/L High 98-107 [facility] Comment on above: Performed By: #### L 100.0100, L500.2500 ####[facility] [address] [place], [address] CO2 [Moles/Vol] 26.0 mmol/L Normal 21.0-32.0 [facility] Comment on above: Performed By: #### L 100.0100, L500.2500 ####[facility] [address] [place], [address] Creatinine [Mass/Vol] 0.70 mg/dL Normal 0.70-1.30 [facility] Comment on above: Result Comment: The validity of the calculated GFR GFRAA in patients over 70 years has not been determined. Clinical correlation is essential. Performed By: #### L 100.0100, L500.2500 ####[facility] [address] [place], [address] ECRCL 166.93 ml/min Normal [facility] Comment on above: Performed By: #### L 100.0100, L500.2500 ####[facility] [address] [place], [address] EST GFR - AA 184 mL/min Normal >60 [facility] Comment on above: Result Comment: Afri can Slovenian GFR Calc Performed By: #### L 100.0100, L500.2500 ####[facility] [address] [place], [address] GAP 5 Normal 5-15 [facility] Comment on above: Performed By: #### L 100.0100, L500.2500 ####[facility] [address] [place], [address] GFR/1.73 sq M.predicted among non-blacks MDRD (S/P/Bld) [Vol rate/Area] 152 mL/min/{1.73_m2} Normal >60 [facility] Comment on above: Result Comment: Non- GFR Calc Performed By: #### L 100.0100, L500.2500 ####[facility] [address] [place], [address] Glucose [Mass/Vol] 114 mg/dL High 74-106 [facility] Comment on above: Result Comment: Fast ing Glucose result from 100 to 125 mg/dL suggests IMPAIRED HOMEOSTASIS per A.D.A. criteria. Performed By: #### L 100.0100, L500.2500 ####[facility] [address] [place], [address] Potassium [Moles/Vol] 4.3 mmol/L Normal 3.5-5.1 [facility] Comment on above: Performed By: #### L 100.0100, L500.2500 ####[facility] [address] [place], [address] Sodium [Moles/Vol] 140 mmol/L Normal 136-145 [facility] Comment on above: Performed By: #### L 100.0100, L500.2500 ####[facility] [address] [place], [address] Urea nitrogen [Mass/Vol] 17 mg/dL Normal 7-18 [facility] Comment on above: Performed By: #### L 100.0100, L500.2500 ####[facility] [address] [place], [address] Culture, Throaton 06-01-2024 CUT Normal throat mary isolated. No beta-hemolytic streptococcus isolated. Normal [facility] Comment on above: Performed By: #### M 100.1000 ####[facility] [address] [place], [address] Soft Tissue Neck WITH Contra ston 06-01-2024 Soft Tissue Neck WITH Contrast [facility] Imaging Services [address] [place], [place] [address] Soft Tissue Neck WITH Contrast MR#: [id number] Acct: [id number] Name: JESSICA BARR Rep #: [id number] : 2005 M 19 From: Servando addison MD PCP: Care Physician,No Primary Status: ADM IN Study: Soft Tissue Neck WITH Contrast Date of Exam: 0 06/01/24 Exam# [id number] Ordering Dr: Yuriy Dnig [place] [id number] STUDY: CT SOFT TISSUE NECK WITH CONTRAST [...] FINDINGS: Normal bilateral parotid glands. Normal bilateral group program manager spaces. Normal bilateral parapharyngeal spaces. Normal bilateral [...] 8:30 EDT Reading Location ID and State: [facility] / [place] , Service support , CC: Dr. Yuriy Ding MD; No Primary Care Physician Ride Mechanic: Signed Normal [facility] Basic Metabolic Profile (BMP )on 05-31-2024 BUN/CRE 19.6 RATIO Normal 10-20 [facility] Comment on above: Performed By: #### L 500.2500, L100.0100 ####[facility] [address] [place], [address] CA,Total 9.1 mg/dL Normal 8.5-10.1 [facility] Comment on above: Performed By: #### L 500.2500, L100.0100 ####[facility] [address] [place], [address] Chloride [Moles/Vol] 105 mmol/L Normal 98-107 [facility] Comment on above: Performed By: #### L 500.2500, L100.0100 ####[facility] [address] [place], [address] CO2 [Moles/Vol] 25.0 mmol/L Normal 21.0-32.0 [facility] Comment on above: Performed By: #### L 500.2500, L100.0100 ####[facility] [address] [place], [address] Creatinine [Mass/Vol] 0.61 mg/dL Low 0.70-1.30 [facility] Comment on above: Result Comment: The validity of the calculated GFR GFRAA in patients over 70 years has not been determined. Clinical correlation is essential. Performed By: #### L 500.2500, L100.0100 ####[facility] [address] [place], [address] ECRCL 191.56 ml/min Normal [facility] Comment on above: Performed By: #### L 500.2500, L100.0100 ####[facility] [address] [place], [address] EST GFR - AA 213 mL/min Normal >60 [facility] Comment on above: Result Comment: Afri can Slovenian GFR Calc Performed By: #### L 500.2500, L100.0100 ####[facility] [address] [place], [address] GAP 5 Normal 5-15 [facility] Comment on above: Performed By: #### L 500.2500, L100.0100 ####[facility] [address] [place], [address] GFR/1.73 sq M.predicted among non-blacks MDRD (S/P/Bld) [Vol rate/Area] 176 mL/min/{1.73_m2} Normal >60 [facility] Comment on above: Result Comment: Non- GFR Calc Performed By: #### L 500.2500, L100.0100 ####[facility] [address] [place], [address] Glucose [Mass/Vol] 151 mg/dL High 74-106 [facility] Comment on above: Result Comment: Fast ing Glucose result greater than or equal to 126 mg/dL suggests DIABETES MELLITUS per A.D.A. criteria. Performed By: #### L 500.2500, L100.0100 ####[facility] [address] [place], [address] Potassium [Moles/Vol] 4.2 mmol/L Normal 3.5-5.1 [facility] Comment on above: Performed By: #### L 500.2500, L100.0100 ####[facility] [address] [place], [address] Sodium [Moles/Vol] 135 mmol/L Low 136-145 [facility] Comment on above: Performed By: #### L 500.2500, L100.0100 ####[facility] [address] [place], [address] Urea nitrogen [Mass/Vol] 12 mg/dL Normal 7-18 [facility] Comment on above: Performed By: #### L 500.2500, L100.0100 ####[facility] [address] [place], [address] CBC W/Diff, Automatedon - SMEAR COMMENT SCANNED Normal [facility] Comment on above: Result Comment: NEUT ROPHILLIA PRESENT Performed By: #### L 500.2500, L100.0100 ####[facility] [address] [place], [address] Basic Metabolic Profile (BMP )on 05-30-2024 BUN/CRE 17.7 RATIO Normal 10-20 [facility] Comment on above: Performed By: #### L 500.2500, L100.0100, L500.3400 ####[facility] [address] [place], [address] CA,Total 9.6 mg/dL Normal 8.5-10.1 [facility] Comment on above: Performed By: #### L 500.2500, L100.0100, L500.3400 ####[facility] [address] [place], [address] Chloride [Moles/Vol] 104 mmol/L Normal 98-107 [facility] Comment on above: Performed By: #### L 500.2500, L100.0100, L500.3400 ####[facility] [address] [place], [address] CO2 [Moles/Vol] 27.0 mmol/L Normal 21.0-32.0 [facility] Comment on above: Performed By: #### L 500.2500, L100.0100, L500.3400 ####[facility] [address] [place], [address] Creatinine [Mass/Vol] 0.74 mg/dL Normal 0.70-1.30 [facility] Comment on above: Result Comment: The validity of the calculated GFR GFRAA in patients over 70 years has not been determined. Clinical correlation is essential. Performed By: #### L 500.2500, L100.0100, L500.3400 ####[facility] [address] [place], [address] ECRCL 157.91 ml/min Normal [facility] Comment on above: Performed By: #### L 500.2500, L100.0100, L500.3400 ####[facility] [address] [place], [address] EST GFR - AA 173 mL/min Normal >60 [facility] Comment on above: Result Comment: Afri can Slovenian GFR Calc Performed By: #### L 500.2500, L100.0100, L500.3400 ####[facility] [address] [place], [address] GAP 7 Normal 5-15 [facility] Comment on above: Performed By: #### L 500.2500, L100.0100, L500.3400 ####[facility] [address] [place], [address] GFR/1.73 sq M.predicted among non-blacks MDRD (S/P/Bld) [Vol rate/Area] 143 mL/min/{1.73_m2} Normal >60 [facility] Comment on above: Result Comment: Non- GFR Calc Performed By: #### L 500.2500, L100.0100, L500.3400 ####[facility] [address] [place], [address] Glucose [Mass/Vol] 122 mg/dL High 74-106 [facility] Comment on above: Result Comment: Fast ing Glucose result from 100 to 125 mg/dL suggests IMPAIRED HOMEOSTASIS per A.D.A. criteria. Performed By: #### L 500.2500, L100.0100, L500.3400 ####[facility] [address] [place], [address] Potassium [Moles/Vol] 4.2 mmol/L Normal 3.5-5.1 [facility] Comment on above: Performed By: #### L 500.2500, L100.0100, L500.3400 ####[facility] [address] [place], [address] Sodium [Moles/Vol] 138 mmol/L Normal 136-145 [facility] Comment on above: Performed By: #### L 500.2500, L100.0100, L500.3400 ####[facility] [address] [place], [address] Urea nitrogen [Mass/Vol] 13 mg/dL Normal 7-18 [facility] Comment on above: Performed By: #### L 500.2500, L100.0100, L500.3400 ####[facility] [address] [place], [address] CBC W/Diff, Automatedon 05-09 SMEAR COMMENT COMMENT Normal [facility] Comment on above: Result Comment: NEUT ROPHILIA. Performed By: #### L 500.2500, L100.0100, L500.3400 ####[facility] [address] [place], [address] Emergency Department Summary on 05-30-2024 Emergency Department Summary [facility] Medical Records Department [address] [place] [address] Emergency Department Summary 05/30/24 MR#: [id number] Acct: [id number] Name: JESSICA BARR Rep #: [id number] : 2005 19 From: Gerhard Maldonado DO [...] the body aches fatigue has resolved. PFSH PFS Home Medications ???Medication ???Instructions ???Recorded ???Last Taken [...] CT o (more content not included)... Normal [facility] H AND P Exam - Hospitaliston 05-30-2024 H&P Exam - Hospitalist [facility] Medical Records Department [address] [place] [address] H P Exam - Hospitalist 05/30/24 1724 MR#: [id number] Acct: [id number] Name: JESSICA BARR Irina Rep #: [id number] : 2005 19 From: Felecia Roland MD PCP: Care Physician,No Primary Status:ADM IN Location: ICU ICU10-1 HPI - General General Date of Admission: 05/30/24 Date of Service: 05/30/24 Chief Complaint: Right sided neck pain and swelling HPI Narrative JESSICA BARR, is a 19 M with history of tobacco use presented to [facility] ED with right neck pain and [...] 90.2 H, Lymph % (Auto) 3.9 L, Redwood % (Auto) 4.5, Eos % (Auto) 0.0, [...] L, Alkali (more content not included)... Normal [facility] Liver Profileon 05-30-2024 Albumin [Mass/Vol] 3.5 g/dL Normal 3.2-5.0 [facility] Comment on above: Performed By: #### L 500.2500, L100.0100, L500.3400 ####[facility] [address] [place], [place], [id number] ALK P 94 U/L Normal 45-117 [facility] Comment on above: Performed By: #### L 500.2500, L100.0100, L500.3400 ####[facility] [address] [place], [address] ALT [Catalytic activity/Vol] 15 U/L Low 16-61 [facility] Comment on above: Performed By: #### L 500.2500, L100.0100, L500.3400 ####[facility] [address] [place], [address] AST [Catalytic activity/Vol] 9 U/L Low 15-37 [facility] Comment on above: Performed By: #### L 500.2500, L100.0100, L500.3400 ####[facility] [address] [place], [address] Bilirubin [Mass/Vol] 0.50 mg/dL Normal 0.20-1.00 [facility] Comment on above: Result Comment: For patients on eltrombopag therapy, use of Dimension Bliss TBIL is not recommended. Performed By: #### L 500.2500, L100.0100, L500.3400 ####[facility] [address] [place], [address] Bilirubin.direct [Mass/Vol] 0.17 mg/dL Normal 0.00-0.30 [facility] Comment on above: Performed By: #### L 500.2500, L100.0100, L500.3400 ####[facility] [address] [place], [address] Globulin (S) [Mass/Vol] 4.4 g/dL High 2.2-4.[address] [facility] Comment on above: Performed By: #### L 500.2500, L100.0100, L500.3400 ####[facility] [address] [place], [address] T PROT 7.9 g/dL Normal 6.4-8.2 [facility] Comment on above: Performed By: #### L 500.2500, L100.0100, L500.3400 ####[facility] [address] [place], [address] Operative Reporton Operative Report [facility] Medical Records Department [address] [place] [address] Operative Report 05/30/24 1531 MR#: [id number] Acct: [id number] Name: JESSICA BARR Rep #: [id number] : 2005 19 From: Yuriy Ding MD [...] MD; No Primary Care Physician Signed Normal [facility] Soft Tissue Neck WITH Contra ston 05-30-2024 Soft Tissue Neck WITH Contrast [facility] Imaging Services [address] [place] [address] Soft Tissue Neck WITH Contrast MR#: [id number] Acct: [id number] Name: JESSICA BARR Rep #: [id number] : 2005 M 19 From: Seravndo addison MD PCP: Care Physician,No Primary Status: REG ER Study: Soft Tissue Neck WITH Contrast Date of Exam: 0 05/30/24 Exam# [id number] Ordering Dr: Gerhard Maldonado DO [id number] STUDY: CT SOFT TISSUE NECK WITH CONTRAST [...] FINDINGS: Normal bilateral parotid glands. Normal bilateral group program manager spaces. Normal bilateral parapharyngeal spaces. Normal bilateral [...] at 14:23 EDT , CC: Dr. Gerhard Maldonado DO; No Primary Care Physician Ride Mechanic: Signed Normal [facility] Emergency Department Summary on 05-27-2024 Emergency Department Summary [facility] Medical Records Department [address] [place] [address] Emergency Department Summary 05/27/24 MR#: [id number] Acct: [id number] Name: JESSICA BARR Rep #: [id number] : 2005 19 From: Jacques Paul MD [...] guarding Back/Spine (more content not included)... Normal [facility] CBC W/Diff, Automatedon 05-08 PATH REV Reviewed Normal [facility] Comment on above: Result Comment: Neut rophilic leukocytosis. Clinical correlation necessary. Casimiro Wynn M.D. 05/26/24 AMENDED REPORT 05/26/24 1506 PATH REV previously reported as: January Performed By: #### L 700.5500, L100.0100 #### [facility] Laboratory [address] [facility] [place], [address] Emergency Department Summary on 05-25-2024 Emergency Department Summary [facility] Medical Records Department [address] [place] [address] Emergency Department Summary 05/25/24 MR#: [id number] Acct: [id number] Name: JESSICA BARR Rep #: [id number] : 2005 19 From: Lupillo Alvarado MD [...] either. M (more content not included)... Normal [facility] Monoteston 05-25-2024 Monocytes (Bld) [#/Vol] Positive Abnormal Negative W [facility] Comment on above: Performed By: #### L 700.5500, L100.0100 #### [facility] [address] [facility] [place], [place], [address] Neck for Soft Tissueon 05-25 Neck for Soft Tissue [facility] Imaging Services [address] [place], [place] [address] Neck for Soft Tissue MR#: [id number] Acct: [id number] Name: JESSICA BARR Rep #: [id number] : 2005 M 19 From: Servando addison MD PCP: Care Physician,No Primary Status: REG ER Study: Neck for Soft Tissue Date of Exam: 05/25/24 Exam# [id number] Ordering Dr: Lupillo Alvarado MD [id number] STUDY: X-RAY - SOFT TISSUE NECK REASON [...] Lupillo Alvarado MD; No Primary Care Physician Ride Mechanic: Signed Normal [facility] CNOVon 05-13-2024 CNOV Office Visit (UCWSTR ) JESSICA BARR ([id number]) 1 M Date Time Provider Department 05/13/24 12:15 PM IVONNE COOPER [facility] During your visit today, we recorded the following information about you: Temperature Pulse Respiration Blood pressure 99 degrees 111/minute 20/minute 115/76 Weight 79 kg Ivonne Cooper APRN.CHILDREN'S BOOK AUTHOR 05/13/2024 12:37 PM Signed Subjective Fever Associated [...] Maternal Grandmother Coronary Artery Disease Maternal Grandfather SD Coronary Artery Disease Paternal Grandfather SD Breast Cancer Other Social History Tobacco Use [...] care wit (more content not included)... Normal [facility] COVID AND INFLUENZA A/B AND RSV PCR, ROUTINEon 05-13-2024 SARS-CoV-2 (COVID-19) RNA TRAY+probe Ql (Unsp spec) SARS-COV-2 (AGENT OF COVID-19) RNA: Not detected INFLUENZA A RNA: Not detected INFLUENZA B RNA: Not detected RESPIRATORY SYNCYTIAL VIRUS (RSV) RNA: Not detected Normal [facility] Comment on above: Performed By: #### C VFLRS ####[facility] LABCLIA [id number] [address] [place] STREP A MOLECULAR (POC)on Procedural Control Valid [facility] Strep A (POCT) Negative Negative [facility] CNOVon 04-26-2024 CNOV Office Visit (UCWSTR ) JESSICA BARR ([id number]) 1 M Date Time Provider Department 04/26/24 2:15 PM LUL BROWN [facility] During your visit today, we recorded the following information about you: Temperature Pulse Respiration Blood pressure 98.5 degrees 85/minute 20/minute 129/89 Weight 78 kg Lul Brown, VICE PRESIDENT RESEARCH.CHILDREN'S BOOK AUTHOR 04/26/2024 2:14 PM Signed Subjective HPI Nontoxic-appearing [...] Maternal Grandmother Coronary Artery Disease Maternal Grandfather SD Coronary Artery Disease Paternal Grandfather SD Breast Cancer Other Social History Tobacco Use [...] for discharge (more content not included)... Normal [facility] CNOVon 03-18-2024 CNOV Office Visit (UCWSTR ) JESSICA BARR ([id number]) 1 M Date Time Provider Department 03/18/24 1:15 PM LAVERNE ZAMBRANO [facility] During your visit today, we recorded the following information about you: Temperature Pulse Respiration Blood pressure 97.1 degrees 78/minute 16/minute 128/68 Weight 79 kg Laverne Zambrano APRN.CNP 03/18/2024 2:15 PM Signed Subjective HPI HPI Jessica Barr is a [...] Maternal Grandmother Coronary Artery Disease Maternal Grandfather SD Coronary Artery Disease Paternal Grandfather SD Breast Cancer Other Social History Tobacco Use [...] HENT: Head: Normocephalic and atraumatic. Mouth/Throat: Lips: Radley. Mouth: Mucous membranes are moist. Pharynx: Uvula [...] - STREP A MOLECULAR (POC) Laverne Zambrano APRN.CHILDREN'S BOOK AUTHOR Allergies As of Date: 03/18/2024 (No Known Allergies) Date Reviewed: 03/18/2024 Reviewed by: Kimberly Jackson - Fully Assessed Reason for Visit: Sore Throat [200] Cmt: Cough x2 mths Primary Visit Diagnosis:Subacute cough [R05.2] Other Visit Diagnosis:Sore throat [J02.9] Order(s):STREP A MOLECULAR (POC) [5914296] Order #: [id number]. #:[id number] [id number] CHEST 2V FRONTAL/LAT [0595555] Order #: [id number]. #:[id number] predniSONE (DELTASONE) 20 mg tabletTake 2 tablets [...] Status:Closed by LAVERNE ZAMBRANO on 03/18/24 Normal [facility] STREP A MOLECULAR (POC)on Procedural Control Valid [facility] Strep A (POCT) Negative Negative [facility] XR CHEST 2V FRONTAL/LATon XR CHEST [...] tissues: Unremarkable. IMPRESSION: No acute radiographic abnormality. Ride Mechanic: [email or web address] Transcribe Date/Time: Mar 18 2024 1:26P Dictated by : ISELA GARCÍA MD This examination was interpreted and the report reviewed and electronically signed by: ISELA GARCÍA MD on Mar 18 2024 1:26PM EST [id number] Normal [facility] XR Chest PA and Lateralon IMPRESSION: No acute radiographic abnormality. Ride Mechanic: [email or web address] Transcribe Date/Time: Mar 18 2024 1:26P Dictated [...] soft tissues: Unremarkable. DIVISION OF RADIOLOGY Provider, [facility] - 03/18/2024 * * *Final Report* [...] Unremarkable. IMPRESSION IMPRESSION: No acute radiographic abnormality. Ride Mechanic: ISAAC Transcribe Date/Time: Mar 18 2024 1:26P Dictated by : ISELA GARCÍA MD This examination was interpreted and the report reviewed and electronically signed by: ISELA GARCÍA MD on Mar 18 2024 1:26PM [facility] Radiology Study observation (narrative) Helen Altamirano XR Chest PA and LateralOrder ed By: Cc Provider on 03-18-2024 [facility] CNOVon 03-03-2024 CNOV Office Visit (INTMWS ) JESSICA BARR ([id number]) 1 M Date Time Provider Department 03/03/24 2:20 PM PRAKASH ZHAO INTMagalyWS During your visit today, we recorded the following information about you: Temperature Pulse Respiration Blood pressure 98.6 degrees 84/minute 18/minute 122/74 Weight 78.5 kg Prakash Zhao MD 03/03/2024 3:38 PM Signed This note was created using NoteWriter. Subjective [...] Prakash Zhao MD Referring Provider: PRAKASH ZHAO [[id number]] Allergies As of Date: 03/03/2024 (No Known Allergies) Date Reviewed: 03/03/2024 Reviewed by: Myrna Vick LPN - Fully Assessed Reason for Visit: Discussion [813] Primary Visit Diagnosis:Tobacco use disorder [F17.200] Other Visit Diagnosis:History of heavy alcohol consumption [Z87.898] Order(s):buPROPion XL (WELLBUTRIN XL) 150 mg 24 hr tabletTake 1 tablet by mouth once daily.Disp: 30 tabletRfl: 0 BEHAVIORAL HEALTH SCREENING [2369412] Order #: [id number]: 1 Prescriptions as of 03/03/2024 - buPROPion [...] for Encounter Date Provider Department Center 03/03/2024 [id number]-VZXTSAYLCPRAKASH ZHAO INTMWS [facility] Encounter Status:Closed by PRAKASH ZHAO on 6/27/24 [facility] 02-29-2024 CNOV Office Visit (UCWSTR ) JESSICA BARR ([id number]) 1 M Date Time Provider Department 02/29/24 11:30 AM MIRIAM WATSON W[facility] During your visit today, we recorded [...] PM Signed This note was created using Graph Storyriter. Subjective Jessica Barr is a 18 year [...] Maternal Grandmother Coronary Artery Disease Maternal Grandfather SD Coronary Artery Disease Paternal Grandfather SD Breast Cancer Other Social History Tobacco Use [...] symptoms - STREP A MOLECULAR (POC) KOFI Springer-C Allergies As of Date: 02/29/2024 (No Known Allergies) Date Reviewed: 02/29/2024 Reviewed by: Erendira Hernandes MA - Fully Assessed Reason for Visit: Sore Throat [200] Cmt: x 1 week Primary Visit Diagnosis:Viral illness [B34.9] Order(s):STREP A MOLECULAR (POC) [0930508] Order #: [id number]. #:[id number] Prescriptions as of 02/29/2024 - miconazole (LOTRIMIN [...] cold symptoms If not better jean paul linares again Encounter Status:Closed by MIRIAM WATSON on 02/29/24 Normal [facility] STREP A MOLECULAR (POC)on Procedural Control Valid [facility] Strep A (POCT) Negative Negative [facility] CNOVon 01-29-2024 CNOV Office Visit (UCWSTR ) JESSICA BARR ([id number]) 1 M Date Time Provider Department 01/29/24 8:30 AM IVONNE COOPER [facility] During your visit today, we recorded the following information about you: Temperature Pulse Respiration Blood pressure 98 degrees 75/minute 18/minute 149/64 Weight 77.8 kg Ivonne Cooper APRN.CHILDREN'S BOOK AUTHOR 01/29/2024 8:48 AM Signed ASSESSMENT/PLAN: 1. Tinea [...] Discussed expected course of illness Ivonne Cooper APRN.CHILDREN'S BOOK AUTHOR TINEA PEDIS (ATHLETESFOOT): Your exam shows you [...] when possible. To treat ahtlete?s foot, use sdzm-dav-pwwbdgd medicated foot powder or cream such as [...] after one week of treatment. Ivonne Cooper APRN.CHILDREN'S BOOK AUTHOR 01/29/2024 8:56 AM Signed Subjective Pain (foot) [...] Maternal Grandmother Coronary Artery Disease Maternal Grandfather SD Coronary Artery Disease Paternal Grandfather SD Breast Cancer Other Social History Tobacco Use [...] Discussed expected course of illness Ivonne Cooper APRN.CHILDREN'S BOOK AUTHOR Allergies As of D (more content not included)... Normal [facility] .Auto Diffon 03-11-2023 Basophil, Absolute 0.0 10 3/mcL Normal 0.0-0.2 [facility] ([place]) Comment on above: Performed By: #### C MP, CBC, GFR, ANEU, ADIFF, LIP, MDW #### [address] [address] Basophils/100 WBC (Bld) 0.7 % Normal 0.0-2.5 [facility] ([place]) Comment on above: Performed By: #### C MP, CBC, GFR, ANEU, ADIFF, LIP, W #### [address] [address] Eosinophil, Absolute 0.2 10 3/mcL Normal 0.0-0.4 [facility] ([place]) Comment on above: Performed By: #### C MP, CBC, GFR, ANEU, ADIFF, LIP, MDW #### [address] [address] Eosinophils/100 WBC (Bld) 3.9 % Normal 0.0-7.0 [facility] ([place]) Comment on above: Performed By: #### C MP, CBC, GFR, ANEU, ADIFF, LIP, LEANNE #### [address] [address] Lymphocyte, Absolute 1.1 10 3/mcL Normal 0.8-3.9 [facility] ([place]) Comment on above: Performed By: #### C MP, CBC, GFR, ANEU, ADIFF, LEANNE WAGNER #### [address] [address] Lymphocytes/100 WBC (Bld) 18.7 % Normal 10.0-50.0 [facility] ([place]) Comment on above: Performed By: #### C MP, CBC, GFR, ANEU, ADIFF, KRISTY, LEANNE #### [address] [address] Monocyte, Absolute 0.8 10 3/mcL Normal 0.2-1.0 [facility] ([place]) Comment on above: Performed By: #### C MP, CBC, GFR, ANEU, ADIFF, LIP, LEANNE #### [address] [address] Monocytes/100 WBC (Bld) 14.2 % High 1.7-13.0 [facility] ([place]) Comment on above: Performed By: #### C MP, CBC, GFR, ANEU, ADKRISTY MERRILL MDW #### [address] [address] Neutrophils/100 WBC (Bld) 62.5 % Normal 37.0-80.0 [facility] ([place]) Comment on above: Performed By: #### C MP, CBC, GFR, ANEU, ADKRISTY MERRILL MDW #### [address] [address] .GFRon 03-11-2023 GFR 145 ml/min/1.73sqm Normal [facility] ([place]) Comment on above: Result Comment: GFR Population [...] CBC, GFR, ANEU, ADIFF, LEANNE WAGNER #### [address] [address] GFR Non- 119 ml/min/1.73sqm Normal [facility] ([place]) Comment on above: Result Comment: GFR Population [...] CBC, GFR, ANEU, ADIFF, LEANNE WAGNER #### [place] [address] .MDWon 03-11-2023 Monocyte Distribution Width 18.08 Normal 0.00-20.00 [facility] ([place]) Comment on above: Result Comment: For ED adult patients suspected of sepsis, MDW<=20.0 does not rule out sepsis or risk of sepsis Performed By: #### C MP, CBC, GFR, ANEU, ADIFF, LIPLEANNE #### [place] [address] .NEUABSon 03-11-2023 Neutrophil, Absolute 3.5 10 3/mcL Normal 2.9-6.2 [facility] ([place]) Comment on above: Performed By: #### C MP, CBC, GFR, ANEU, ADIFF, LEANNE WAGNER #### [place] [address] CBCon 03-11-2023 Erythrocyte distribution width (RBC) [Ratio] 13.0 % Normal 11.5-14.5 [facility] ([place]) Comment on above: Performed By: #### C MP, CBC, GFR, ANEU, ADIFF, KRISTY, LEANNE #### [place] [address] Hematocrit (Bld) [Volume fraction] 42.1 % Normal 42.0-52.0 [facility] ([place]) Comment on above: Performed By: #### C MP, CBC, GFR, ANEU, ADIFF, KRISTY, LEANNE #### [place] [address] Hgb 14.4 G/dL Normal 14.0-18.0 [facility] ([place]) Comment on above: Performed By: #### C MP, CBC, GFR, ANEU, ADIFF, LIP, W #### [place] [address] MCH (RBC) [Entitic mass] 29.3 pg Normal 27.0-31.2 [facility] ([place]) Comment on above: Performed By: #### C MP, CBC, GFR, ANEU, ADKRISTY MERRILL MDW #### [address] [address] MCHC 34.2 G/dL Normal 31.8-35.4 [facility] ([place]) Comment on above: Performed By: #### C MP, CBC, GFR, ANEU, ADIFF, LEANNE WAGNER #### [address] [address] MCV (RBC) [Entitic vol] 85.7 fL Normal 80.0-94.0 [facility] ([place]) Comment on above: Performed By: #### C MP, CBC, GFR, ANEU, ADIFF, LEANNE WAGNER #### [address] [address] Platelet 322 10 3/mcL Normal 130-400 [facility] ([place]) Comment on above: Performed By: #### C MP, CBC, GFR, ANEU, ADIFF, LEANNE WAGNER #### [address] [address] Platelet mean volume (Bld) [Entitic vol] 7.3 fL Low 7.4-10.4 [facility] ([place]) Comment on above: Performed By: #### C MP, CBC, GFR, ANEU, ADIFF, LEANNE WAGNER #### [address] [address] RBC 4.92 10 6/mcL Normal 4.04-6.13 [facility] ([place]) Comment on above: Performed By: #### C MP, CBC, GFR, ANEU, ADGARFIELD, LEANNE WAGNER #### [address] [address] WBC 5.6 10 3/mcL Normal 4.6-10.8 [facility] ([place]) Comment on above: Performed By: #### C MP, CBC, GFR, ANEU, ADIFF, LEANNE WAGNER #### [address] [address] CMPon 03-11-2023 Albumin Level 4.2 G/dL Normal 3.5-5.0 [facility] ([place]) Comment on above: Performed By: #### C MP, CBC, GFR, ANEU, ADIFF, KRISTY, LEANNE #### [address] [address] Albumin/Globulin [Mass ratio] 1.6 {ratio} Normal 1.1-2.5 [facility] ([place]) Comment on above: Performed By: #### C MP, CBC, GFR, ANEU, ADIFF, KRISTY, LEANNE #### [address] [address] ALP [Catalytic activity/Vol] 91 U/L Normal 40-135 [facility] ([place]) Comment on above: Performed By: #### C MP, CBC, GFR, ANEU, ADIFF, LEANNE WAGNER #### [address] [address] ALT [Catalytic activity/Vol] 23 U/L Normal 16-63 [facility] ([place]) Comment on above: Performed By: #### C MP, CBC, GFR, ANEU, ADIFF, LEANNE WAGNER #### [address] [address] AST [Catalytic activity/Vol] 17 U/L Normal 10-40 [facility] ([place]) Comment on above: Performed By: #### C MP, CBC, GFR, ANEU, ADIFF, LEANNE WAGNER #### [address] [address] Bili Total 0.6 mg/dL Normal 0.2-1.0 [facility] ([place]) Comment on above: Result Comment: Use of this assay is not recommended for patients undergoing treatment with eltrombopag due to the potential for falsely elevated results. Performed By: #### C MP, CBC, GFR, ANEU, ADIFF, KRISTY, LEANNE #### [address] [address] BUN/Creatinine Ratio 13 ratio Normal 7-27 [facility] ([place]) Comment on above: Performed By: #### C MP, CBC, GFR, ANEU, ADIFF, KRISTY, W #### [address] [address] Calcium [Mass/Vol] 9.3 mg/dL Normal 8.4-10.2 [facility] ([place]) Comment on above: Performed By: #### C MP, CBC, GFR, ANEU, ADIFF, LIP, MDW #### [address] [address] Chloride [Moles/Vol] 104 mmol/L Normal 98-107 [facility] ([place]) Comment on above: Performed By: #### C MP, CBC, GFR, ANEU, ADIFF, KRISTY, W #### [address] [address] CO2 [Moles/Vol] 26 mmol/L Normal 22-29 [facility] ([place]) Comment on above: Performed By: #### C MP, CBC, GFR, ANEU, ADIFF, LIP, MDW #### [address] [address] Creatinine [Mass/Vol] 0.83 mg/dL Normal 0.70-1.30 [facility] ([place]) Comment on above: Performed By: #### C MP, CBC, GFR, ANEU, ADIFF, LIP, MDW #### [address] [address] Electrolyte Balance 10.0 mEq/L Normal 4.0-15.0 [facility] ([place]) Comment on above: Performed By: #### C MP, CBC, GFR, ANEU, ADIFF, LIP, MDW #### [address] [address] Globulin 2.6 G/dL Normal [facility] ([place]) Comment on above: Performed By: #### C MP, CBC, GFR, ANEU, ADIFF, LIP, MDW #### [address] [address] Glucose [Mass/Vol] 84 mg/dL Normal 70-105 [facility] ([place]) Comment on above: Performed By: #### C MP, CBC, GFR, ANEU, ADIFF, LEANNE WAGNER #### [address] [address] Potassium [Moles/Vol] 4.1 mmol/L Normal 3.5-5.1 [facility] ([place]) Comment on above: Performed By: #### C MP, CBC, GFR, ANEU, ADIFF, LEANNE AWGNER #### [address] [address] Sodium [Moles/Vol] 140 mmol/L Normal 136-145 [facility] ([place]) Comment on above: Performed By: #### C MP, CBC, GFR, ANEU, ADIFF, LEANNE WAGNER #### [address] [address] Total Protein 6.8 G/dL Normal 6.4-8.2 [facility]) Comment on above: Performed By: #### C MP, CBC, GFR, ANEU, ADIFF, LEANNE WAGNER #### [address] [address] Urea nitrogen [Mass/Vol] 11 mg/dL Normal 7-18 [facility]) Comment on above: Performed By: #### C MP, CBC, GFR, ANEU, ADIFF, LEANNE WAGNER #### [address] [address] LABORATORYOrdered By: SYSTEM SYSTEM on 03-11-2023 Albumin [...] 03-11-2023 Lipase Level 25 U/L Normal 16-77 [facility] ([place]) Comment on above: Performed By: #### C MP, CBC, GFR, ANEU, ADIFF, LIP, MDW #### [address] [address] GSMB80ml 12-22-2022 SARS-CoV-2 (COVID-19) RNA TRAY+probe Ql (Unsp spec) Negative Normal Negative [facility] ([place]) Comment on above: Performed By: #### C OVD19, FLURSV #### [address] [address] SARS-CoV-2 (COVID-19) RNA TRAY+probe Ql (Unsp spec) Normal [facility] ([place]) Comment on above: Result Comment: Nega tive [...] Performed By: #### C OVD19, FLURSV #### [address] [address] DIMERon 12-22-2022 D-Dimer <200 Normal 0-230 [facility] ([place]) Comment on above: Result Comment: The result [...] Performed By: #### D BROOKS ####[address] [place], [place] [address] FLURSVon 12-22-2022 Flu A PCR (AO) Negative Normal Negative [facility] ([place]) Comment on above: Result Comment: Posi tive [...] REPEAT COLLECTION AND TESTING IS RECOMMENDED. The [employer] Flu A/B & RSV Assay is a real-time polymerase chain reaction (PCR) based qualitative in vitro diagnostic test for the direct detection and differentiation of influenza A virus, influenza B virus, and respiratory syncytial virus (RSV) nucleic acid in nasopharyngeal swab (FIRE SAFETY INSPECTOR) specimens from patients with signs and symptoms of respiratory infection in conjunction with clinical and laboratory findings. The test is intended for use as an aid in the differential diagnosis of influenza A virus, influenza B virus, and RSV in humans and is not intended to detect influenza C. Performed By: #### C OVD19, FLURSV ####[address] [place], [place] [address] Flu B PCR (AO) Negative Normal Negative [facility] ([place]) Comment on above: Result Comment: Posi tive [...] virus (RSV) nucleic acid in nasopharyngeal swab (FIRE SAFETY INSPECTOR) specimens from patients with signs and symptoms of respiratory infection in conjunction with clinical and laboratory findings. The test is intended for use as an aid in the differential diagnosis of influenza A virus, influenza B virus, and RSV in humans and is not intended to detect influenza C. Performed By: #### C OVD19, FLURSV ####[id number] [place], [place] [address] RSV PCR (AO) Negative Normal Negative [facility] ([place]) Comment on above: Result Comment: Posi tive [...] virus (RSV) nucleic acid in nasopharyngeal swab (FIRE SAFETY INSPECTOR) specimens from patients with signs and symptoms of respiratory infection in conjunction with clinical and laboratory findings. The test is intended for use as an aid in the differential diagnosis of influenza A virus, influenza B virus, and RSV in humans and is not intended to detect influenza C. Performed By: #### C OVD19, FLURSV ####[id number] [place], [place] [address] LABORATORYOrdered By: Catherine Bernal on 12-22-2022 Fibrin [...] Date: 12/22/2022 2:43:59 PM Ordering Provider: MANGO [facility] ([place]) CR Forearm 2 Views Righton 1 CR Forearm 2 Views Right Patient Name: JESSICA BARR Diagnostic Radiology ACCESSION EXAM DATE/TIME PROCEDURE ORDERING PROVIDER [id number] 07/01/2022 23:56 EDT CR Forearm 2 Views Right [id number] -KASEY ERVIN CPT code 66858 Reason For Exam (CR Forearm 2 Views [...] Transcribed Date and Time: 07/02/2022 0:47 Normal [facility] XR RADIUS ULNA RIGHT (2 VIEW S)on 07-02-2022 Patient Name: JESSICA BARR Diagnostic Radiology ACCESSION EXAM DATE/TIME PROCEDURE ORDERING PROVIDER [id number] 07/01/2022 23:56 EDT CR Forearm 2 Views Right [id number] CAZARES CPT code 13582 Reason For Exam (CR Forearm 2 Views [...] JASON Transcribed Date and Time: 07/02/2022 0:47 [facility] Israel Crews MD - 07/02/2022 [id number] Diagnostic Radiology ACCESSION EXAM DATE/TIME PROCEDURE ORDERING PROVIDER [id number] 07/01/2022 23:56 EDT CR Forearm 2 Views Right [id number] -BKPAULAJOYBERTElina CPT code 11701 Reason For Exam (CR Forearm 2 Views [...] 07-02-2022 [facility] Work Phone: ED Provider Noteon ED Provider Note [facility] EMERGENCY DEPT eMERGENCY dEPARTMENT eNCOUnter Pt Name: Jessica Barr Birthdate 2005 Date of evaluation: 07/01/2022 Provider: Omar Walls PA-C CHIEF COMPLAINT Chief Complaint Patient presents with Arm Injury PT FELL INTO [place] TODAY AND GOT CAST WET. PT HAD BROKEN R ARM W/ WOUND 2X WEEKS AGO. Patient seen independently with an Emergency Medicine attending available for supervision. HISTORY OF PRESENT ILLNESS (Location/Symptom, Timing/Onset,Context/S etting, Quality, Duration, Modifying Factors, Severity) Note limiting factors. HPI Jessica Barr is a 17 y.o. male who presents to the emergency department after [place]. Patient states that he did [...] use: Yes Drug use: Yes Types: Marijuana ([place]) SCREENINGS PHYSICAL EXAM (up to 7 for [...] EXAM DATE/GAEL (more content not included)... Normal [facility] XR RADIUS ULNA RIGHT (2 VIEW S)on 07-01-2022 Radiology Study observation (narrative) [facility] Work Phone: CBC with Auto Differentialon 06-21-2022 Hematocrit (Bld) [Volume fraction] 39.0 % Low 40 - 52 % [facility] Hemoglobin (Bld) [Mass/Vol] 13.4 g/dL 13 - 18 g/dL [facility] Interpretation and review of laboratory results Abnormal [facility] MCH (RBC) [Entitic mass] 29.2 pg 26 - 34 pg [facility] MCHC (RBC) [Mass/Vol] 34.2 % 32 - 36 % [facility] MCV (RBC) [Entitic vol] 85.4 fL 80 - 98 fL [facility] Platelet distribution width (Bld) [Ratio] 13.9 % 11.5 - 14.5 % [facility] Platelet mean volume (Bld) [Entitic vol] 7.6 fL 7.4 - 12.4 fL [facility] Comment on above: MPV is a calculated measurement using platelet volume ratio. Platelets (Bld) [#/Vol] 259 10*3/uL 140 - 440 10*3/uL [facility] RBC (Bld) [#/Vol] 4.57 10*6/uL 4.4 - 5.9 10*6/uL [facility] WBC (Bld) [#/Vol] 11.6 10*3/uL High 3.6 - 10.7 10*3/uL [facility] Test Performed by [address] [address] [facility] COVID-19, Flu A/B, and RSV C omboon 06-21-2022 Influenza A by PCR Not detected [facility] A Influenza B by PCR Not detected [facility] A RSV PCR Not Detected. Expected Result: Not Detected _ Method: Real-time, RT-PCR This assay was developed by [employer] and distributed under an Emergency Use Authorization (EUA) granted by the FDA for the qualitative detection of nucleic acids from SARS-CoV-2, Influenza A, Influenza B, and Respiratory Syncytial Virus. Provider and patient fact sheets can be found at https://www.[facility].gov/ar handy/098316/download and https://www.fda.gov/ar handy/326970/download. [facility] SARS-CoV-2 (COVID-19) RNA TRAY+probe Ql (Unsp spec) Not detected [facility] Test Performed by [address] [address] [facility] CR Chest Portableon 06-21-20 22 CR Chest Portable Patient Name: JESSICA BARR Diagnostic Radiology ACCESSION EXAM DATE/TIME PROCEDURE ORDERING PROVIDER [id number] 06/21/2022 18:58 EDT CR Chest Portable NATYKAM CPT code 12145 Reason For Exam (CR Chest Portable) weakness, [...] Transcribed Date and Time: 06/21/2022 6:35 Normal [facility] Comp Metabolic Panelon 06-21 ALP [Catalytic activity/Vol] 71 U/L Normal 38-126 [facility] Comment on above: Performed By: #### H KRISTA ADRIAN MDIFF #### [facility] [address] [place], [place] ALT [Catalytic activity/Vol] 34 U/L Normal 0-49 [facility] Comment on above: Result Comment: The ALT test is performed by an updated assay method. Please note that the reference intervals have been changed and are now sex specific. Performed By: #### H KRISTA ADRIAN MDIFF #### [facility] [address] [place], [place] AST [Catalytic activity/Vol] 41 U/L Normal 15-46 [facility] Comment on above: Performed By: #### KRISTA SERRANO MDIFF #### [facility] [address] [place], [place] Calcium [Mass/Vol] 9.5 mg/dL Normal 8.4-10.4 [facility] Comment on above: Performed By: #### KRISTA SERRANO MDIFF #### [facility] [address] [place], [place] Glucose [Mass/Vol] 102 mg/dL High 70-100 [facility] Comment on above: Performed By: #### KRISTA SERRANO MDIFF #### [facility] [address] [place], [place] Protein [Mass/Vol] 7.4 g/dL Normal 6.3-8.2 [facility] Comment on above: Performed By: #### KRISTA SERRANO MDIFF #### [facility] [address] [place], [place] Urea nitrogen [Mass/Vol] 10 mg/dL Normal 7-17 [facility] Comment on above: Performed By: #### H KRISTA ADRIAN MDIFF #### [facility] [address] [place], [place] Anion gap [Moles/Vol] 8 mmol/L Normal 3-13 [facility] Comment on above: Performed By: #### H KRISTA ADRIAN MDIFF #### [facility] [address] [place], [place] Bilirubin [Mass/Vol] 0.6 mg/dL Normal 0.2-1.3 [facility] Comment on above: Performed By: #### H KRISTA ADRIAN MDIFF #### [facility] [address] [place], [place] CO2 [Moles/Vol] 25 mmol/L Normal 22-30 [facility] Comment on above: Performed By: #### H KRISTA ADRIAN MDIFF #### [facility] [address] [place], [place] Creatinine [Mass/Vol] 0.62 mg/dL Normal 0.52-1.25 [facility] Comment on above: Performed By: #### H KRISTA ADRIAN MDIFF #### [facility] [address] [place], [place] eGFR OTHER > 90.0 Normal >60 [facility] Comment on above: Result Comment: KDIG [...] By: #### H KRISTA ADRIAN MDIFF #### [place] [address] [address] [place], [place] GFR/1.73 sq M.predicted among blacks MDRD (S/P/Bld) [Vol rate/Area] mL/min/{1.73_m2} Normal >60 [facility] Comment on above: Performed By: #### H KRISTA ADRIAN MDIFF #### [place] [address] [address] [place], [place] Albumin [Mass/Vol] 4.2 g/dL Normal 3.5-5.0 [facility] Comment on above: Performed By: #### H KRISTA ADRIAN MDIFF #### [address] Chloride [Moles/Vol] 104 mmol/L Normal 98-107 [facility] Comment on above: Performed By: #### H KRISTA ADRIAN MDIFF #### [place] [address] [address] [place], [place] Potassium [Moles/Vol] 4.2 mmol/L Normal 3.5-5.1 [facility] Comment on above: Performed By: #### H KRISTA ADRIAN MDIFF #### [place] [address] [address] [place], [place] Sodium [Moles/Vol] 136 mmol/L Normal 135-145 [facility] Comment on above: Performed By: #### H KRISTA ADRIAN MDIFF #### [address] [place] [address] Comprehensive Metabolic Pane jayla 06-21-2022 Albumin [Mass/Vol] 4.2 g/dL 3.5 - 5 g/dL [facility] ALP (Bld) [Catalytic activity/Vol] 71 U/L 38 - 126 U/L [facility] ALT [Catalytic activity/Vol] 34 U/L 0 - 49 U/L [facility] Comment on above: The ALT test is [...] P INF mL/min [facility] EGFR IF NonAfrican Slovenian mL/min 60 - PINF mL/min [facility] Comment [...] [Mass/Vol] 10 mg/dL 7 - 17 mg/dL [facility] Test Performed by [employer] [facility], [address] [place] [address] [facility] ED Provider Noteon ED Provider Note Emergency Department Encounter [facility] EMERGENCY DEPT Patient: Jessica Barr : 2005 [...] for ACS or PE. IMarian, am the renal technician of record. I did perform a substantive [...] are mis-transcribed.) Irina Guerra MD Acute Care [facility] Irina Guerra MD 06/21/22 2309 Normal [facility] ED Provider Note Emergency Department Encounter [facility] EM[facility]PT Patient: Jessica Barr : 2005 [...] as my SAMMY Supervisory note as the renal technician of record and shared attestation. I did [...] for clarification KAM ALFONSO MD Acute Care [facility] Kam Alfonso MD 06/21/22 3212 [facility] ED Provider Note [facility] EMERGENCY DEPT EMERGENCY DEPARTMENT ENCOUNTER Pt Name: [...] patient come from an ECF, SNF, Rehab, Assisted or other Congregate setting: No (If yes [...] use: Yes Drug use: Yes Types: Marijuana ([place]) SCREENINGS Katie Coma Scale Eye Opening: Spontaneous Best Verbal Response: Oriented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 04-17-2022 End: 04-17-2022 Emergency department patient visit PAMELA DAIGLE MD Facility:[facility] Start: 04-17-2022 End: 04-17-2022 Emergency department patient visit PAMELA DAIGLE MD [facility] Start: 01-31-2022 End: 01-31-2022 Patient encounter procedure Prakash Zhao MD Work Phone: [facility] [place] Comment on above: Weight loss, uninten tional (Primary Dx); Early satiety; Fatigue, unspecified type; Screening for HIV without presence of risk factors; Encounter for hepatitis C screening test for low risk patient Start: 01-31-2022 Telephone encounter Olga Henning APRN.CHILDREN'S BOOK AUTHOR Work Phone: [facility] Comment on above: Results Start: 01-30-2022 End: 01-30-2022 Patient encounter procedure Ivonne Cooper APRN.CHILDREN'S BOOK AUTHOR Work Phone: [facility] Comment on above: Sore throat (Primary Dx); Viral URI with cough Start: 05-01-[address] Lupillo brenner MD Work Phone: [facility] Procedures Date Procedure Procedure Detail Performing Clinician Start: 03-05-2025 Ultrasound of scrotu m with Doppler and color flow imaging Dr. Lupillo Alvarado MD Work Phone: Start: 03-04-2025 Urnls dip stick/tabl et reagent [...] exam ches t 2 views Laverne Zambrano APRN.CHILDREN'S BOOK AUTHOR Work Phone: Start: 03-18-2024 STREP A MOLECULAR (POC) Laverne Zambrano VICE PRESIDENT RESEARCH.CHILDREN'S BOOK AUTHOR Work Phone: Start: 03-03-2024 Adult depression scr eening assessment Lul Brown VICE PRESIDENT RESEARCH.CHILDREN'S BOOK AUTHOR Work Phone: Start: 02-29-2024 STREP A MOLECULAR [...] 01-30-2022 STREP A MOLECULAR (POC) Ivonne Cooper APRN.CHILDREN'S BOOK AUTHOR Work Phone: Open reduction of fr acture with internal fixation MANGO TYSON DO Comment on above: right arm Plan of Treatment Date Care Activity Detail Author Start: 2078 RSV Immunization for Adults (1 - 1-dose 75+ series) RSV Immunization for Adults (1 - 1-dose 75+ series) [facility] Start: 2053 Zoster Vaccines (1 of 2) Zoste r Vaccines (1 of 2) [facility] Start: 06-17-2032 DTaP/Tdap/Td vaccine (6 - Td or Tdap) DTaP/Tdap/Td vaccine (6 - Td or Tdap) [facility] Start: 06-17-2032 DTaP/Tdap/Td Vaccine s (8 - Td or Tdap) DTaP/Tdap/Td Vaccines (8 - Td or Tdap) [facility] Start: 06-17-2032 Urine microalbumin profile DTaP,Tdap,Td Vaccine (8 - Td or Tdap) [facility] Start: 03-05-2025 [facility] Start: 03-04-2025 [facility] Start: 03-03-2025 Anxiety Screening Anxiety Screening [facility] Start: 03-03-2025 Covid-19 Vaccine ( season) Covid-19 Vaccine () [facility] Comment on above: Postponed from 05/08 (Declined at this time) Start: 03-03-2025 Depression Screening Depression Scre ening [facility] Start: 03-03-2025 HPV Vaccine (1 - Mal e 3-dose series) HPV Vaccine (1 - Male 3-dose series) [facility] Comment on above: Postponed from 04/15 (Declined at this time) Start: 03-03-2025 Meningococcal B Vacc ine (2 of 2 - Bexsero SCDM 2-dose series) Meningococcal B Vaccine (2 of 2 - Bexsero SCDM 2-dose series) [facility] Comment on above: Postponed from 11/24 (Declined at this time) Start: 03-03-2025 Meningococcal B Vacc ine: Consider Based On Risk (2 of 2 - Risk Bexsero 2-dose series) Meningococcal B Vaccine: Consider Based On Risk (2 of 2 - Risk Bexsero 2-dose series) [facility] Comment on above: Postponed from 06/24 (Declined at this time) Start: 03-03-2025 Pneumococcal vaccination Pneum ococcal Vaccine (1 of 2 - PCV) [facility] Comment on above: Postponed from 04/15 (Declined at this time) Postponed from 04/15 (Declined at this time) Start: 01-29-2025 [facility] Start: 05-08-2024 Covid-19 Vaccine ( season) Covid-19 Vaccine ( season) [facility] Start: 05-08-2024 COVID-19 Vaccine ( season) COVID-19 Vaccine ( season) [facility] Start: 05-08-2024 Influenza vaccination C [facility] Start: 03-02-2024 End: 03-02-2024 Patient encounter procedure 03/02/2024 1:00 PM EDT Office Visit Internal [facility] [address] [facility] [place] [address] Prakash Zhao MD [address] [facility] [place] [address] options to stop smoking [facility] Comment on above: options to stop smok ing Start: 09-07-2023 Behavioral Health Screening Behavioral Health Screening [facility] Start: 06-24-2023 Meningococcal B Vacc ine: Consider Based On Risk (2 of 2 - Risk Bexsero 2-dose series) Meningococcal B Vaccine: Consider Based On Risk (2 of 2 - Risk Bexsero 2-dose series) [facility] Start: 05-08-2023 Covid-19 Vaccine ( season) Covid-19 Vaccine () [facility] Start: 08-12-2022 End: 08-12-2022 Patient encounter procedure 08/12/2022 Office Visit Pulmonology Shruthi Gan, VICE PRESIDENT RESEARCH - CHILDREN'S BOOK AUTHOR [address] [place] [address] [facility] Start: 06-30-2022 End: 06-30-2022 Patient encounter procedure 06/30/2022 Office Visit Trauma Surgery Ivonne Quinn APRN - CHILDREN'S B[employer] AUTHOR [address] [facility] [place] [address] [facility] Start: 06-18-2022 DTaP/Tdap/Td vaccine (1 - Tdap) DTaP/Tdap/Td vaccine (1 - Tdap) [facility] Start: 05-08-2022 Influenza vaccination INFLUENZ A (Season Ended) [facility] Start: 2022 Pneumococcal Vaccine : Pediatrics (0 to 5 Years) and At-Risk Patients (6 to 49 Years) (1 of 2 - PCV) Pneumococcal Vaccine: Pediatrics (0 to 5 Years) and At-Risk Patients (6 to 49 Years) (1 of 2 - PCV) [facility] Start: 04-07-2022 Influenza vaccination Flu vaccine (# 1) [facility] Start: 01-31-2022 End: 04-02-2022 CBC panel - Blood by Automated count [facility] Work Phone: Comment on above: Expected: 01/31/2022 , Expires: 04/02/2022 Start: 01-31-2022 End: 04-02-2022 Comprehensive metabolic 2000 panel - Serum or Plasma [facility] Work Phone: Comment on above: Expected: 01/31/2022 , Expires: 04/02/2022 Start: 01-31-2022 End: 04-02-2022 Hepatitis C virus Ab [Presence] in Serum [facility] Work Phone: Comment on above: Expected: 01/31/2022 , Expires: 04/02/2022 Start: 01-31-2022 End: 04-02-2022 HIV 1+2 Ab [Presence] in Serum or Plasma by Immunoassay [facility] Work Phone: Comment on above: Expected: 01/31/2022 , Expires: 04/02/2022 Start: 01-31-2022 End: 04-02-2022 Thyrotropin [Units/volume] in Serum or Plasma [facility] Work Phone: Comment on above: Expected: 01/31/2022 , Expires: 04/02/2022 Start: 01-31-2022 End: 04-02-2022 VITAMIN B12 BLOOD [facility] Work Phone: Comment on above: Expected: 01/31/2022 , Expires: 04/02/2022 Start: 01-30-2022 End: 02-13-2022 Influenza virus A and B RNA and SARS-CoV-2 (COVID-19) N gene panel - Respiratory specimen by TRAY with probe detection COVID WITH FLUA+B, ROUTINE Microbiology Routine Viral URI with cough Expected: 01/30/2022, Expires: 02/13/2022 [facility] Work Phone: Comment on above: Expected: 01/30/2022 , Expires: 02/13/2022 Start: 2021 HEPATITIS C SCREENING HEPATITIS C SC REENING [facility] Start: 2021 Hepatitis C screening S [facility] Start: 2021 HIV SCREENING HIV SCREENING [facility] Start: 2019 MENINGOCOCCAL CONJUG ATE (1 - 2-dose series) MENINGOCOCCAL CONJUGATE (1 - 2-dose series) [facility] Start: 2018 HIV screening HIV screen [facility] Start: 2018 HPV Vaccine (1 - Mal e 3-dose series) HPV Vaccine (1 - Male 3-dose series) [facility] Start: 2018 HPV Vaccines (1 - Ma le 3-dose series) HPV Vaccines (1 - Male 3-dose series) [facility] Start: 2017 PEDS TO ADULT TRANSI TION ANNUAL ASSESSMENT PEDS TO ADULT TRANSITION ANNUAL ASSESSMENT [facility] Start: 2015 Adult depression screening assessment DEPRESSION SCREENING [facility] Start: 2015 Depression Screen Depression Screen [facility] Start: 2015 PEDS TO ADULT TRANSI TION INITIAL DISCUSSION PEDS TO ADULT TRANSITION INITIAL DISCUSSION [facility] Start: 2014 HPV VACCINE (1 - Mal e 2-dose series) HPV VACCINE (1 - Male 2-dose series) [facility] Start: 2013 MENINGOCOCCAL B: Consider based on risk (1 of 2 - Risk Bexsero 2-dose series) MENINGOCOCCAL B: Consider based on risk (1 of 2 - Risk Bexsero 2-dose series) [facility] Start: 2010 Urine microalbumin profile DTAP,TDAP,TD (1 - Tdap) [facility] Start: 2008 COVID-19 VACCINE (#1) COVID-19 VACCI NE (#1) [facility] Start: 2007 Varicella vaccine (2 of 2 - 2-dose childhood series) Varicella vaccine (2 of 2 - 2-dose childhood series) [facility] Start: 2004 Varicella vaccine (1 of 2 - 2-dose childhood series) Varicella vaccine (1 of 2 - 2-dose childhood series) [facility] Start: 2003 COVID-19 Vaccine (#1) COVID-19 Vacci ne (#1) [facility] Start: 2003 HIV screening HIV Screening [facility] End: 07-31-2022 Basic Metabolic Panel w/ Reflex to MG Basic Metabolic Panel w/ Reflex to MG Lab Routine Daily for 44 Days starting 06/18/2022 until 07/31/2022, 1 completed [facility] Work Phone: Comment on above: Daily for [address] arting 06/18/2022 until 07/31/2022, 1 completed End: 07-31-2022 CBC W Auto Differential panel - Blood CBC with Auto Differential Lab Routine Daily for 44 Days starting 06/18/2022 until 07/31/2022, 1 completed [facility] [employer] Work Phone: Comment on above: Daily for [address] arting 06/18/2022 until 07/31/2022, 1 completed COVID & INFLUENZA A/ B & RSV PCR, ROUTINE COVID & INFLUENZA A/B & RSV PCR, ROUTINE Microbiology Routine Viral illness 05/13/2024 3:16 PM EDT [facility] Work Phone: End: 06-17-2022 FL Greater Than 1 Hour [employer] Work Phone: Comment on above: Once for 1 Occurrenc es starting 06/17/2022 until 06/17/2022 Oxygen therapy [[facility] Data Set] Initiate Oxygen Therapy Protocol Respiratory Care Routine As Needed until discontinued starting 06/17/2022 [employer] Work Phone: Comment on above: As Needed until disc ontinued starting 06/17/2022 Patient Education ED Depression ED Hypertension, To Be Confirmed [facility] Work Phone: Patient referral [facility] Work Phone: Respiratory Consult for Lung Nodule Respiratory Consult for Lung Nodule Respiratory Care Routine Daily until discontinued starting 06/17/2022 [employer] Work Phone: Comment on above: Daily until disconti nued starting 06/17/2022 End: 06-17-2022 Splint application Splint application Procedures Routine One Time for 1 Occurrences starting 06/17/2022 until 06/17/2022 [employer] Work Phone: Comment on above: One Time [...] 1 Occur rences starting 06/17/2022 until 06/17/2022 [facility] Immunizations Immunization Date Immunization Notes Care Provider [facility] 06-01-2024 influenza, seasonal, injectable, preservative free Dr. Lupillo Alvarado MD Work Phone: [facility] 05-27-2023 meningococcal oligosaccharide (groups A, C, Y and W-135) diphtheria toxoid conjugate vaccine (MCV4O); Translations: [Menveo] DARREN CRONIN VICE PRESIDENT [facility] Comment on above: Result Comment: [place] number listed in cerner is not correct. The correct [facility] [place] [id number] 05-27-2023 meningococcal B vacc ine, recombinant, OMV, adjuvanted; Translations: [Bexsero] DARREN CRONIN VICE PRESIDENT [facility] 06-17-2022 tetanus and diphther ia toxoids, adsorbed, preservative free, for adult use (5 Lf of tetanus toxoid and 2 Lf of diphtheria toxoid) Trevor Wheeler MD Work Phone: [facility] Work Phone: Comment on above: Result Comment: 2022: VIS DATE: 04/12/2021 12-14-2014 meningococcal polysaccharide (groups A, C, Y and W-135) diphtheria toxoid conjugate vaccine (MCV4P) DARREN CRONIN VICE PRESIDENT [employer] [facility] 12-14-2014 tetanus toxoid, redu nura diphtheria toxoid, and acellular pertussis vaccine, adsorbed DARREN CRONIN VICE PRESIDENT [employer] [facility] 07-15-2013 influenza virus vacc ine, unspecified formulation Ivonne Cooper VICE PRESIDENT [facility] Work Phone: [facility] 04-30-2004 varicella virus vaccine MAC CRONIN VICE PRESIDENT [employer] [facility] 2003 DTaP-hepatitis B and poliovirus vaccine DARREN CRONIN VICE PRESIDENT [employer] [facility] 2003 DTaP-hepatitis B and poliovirus vaccine DARREN CRONIN VICE PRESIDENT [employer] [facility] 2003 DTaP-hepatitis B and poliovirus vaccine DARREN CRONIN VICE PRESIDENT [employer] [facility] Payers Date Payer Category Payer Medicaid [id number] 2023 Self-pay 2021 Unknown [id number] 2003 Medicaid [place] MED[place] [id number] 2003-Present [phone] [facility] [address] [place] [address] Medicaid [id number] 2003 Unknown [id number] [id number] 2003 Unknown [id number] 2.16.840.1.961286.3.579.2.668 2003 Unknown [id number] 2.16.840.1.635288.3.579.2.668 2003 Unknown [id number] 2.16.840.1.869668.3.579.2.627 2003 Unknown [id number] 2.16.840.1.423325.3.579.2.627 2003 Unknown [id number] 2.16.840.1.410342.3.579.2.627 2003 Unknown [id number] 2.16.840.1.764571.3.579.2.627 2003 Unknown [id number] 2.16840.1.635396.3.579.2.627 1974 Unknown [id number] 2.16840.1.450848.3.579.2.627 1974 Unknown [id number] 2.16840.1.526032.3.579.2.627 Unknown Unknown [id number] 2.16840.1.860556.3.579.2.462 Unknown [id number] 2.16840.1.671563.3.579.2.462 Unknown [id number] 2.16840.1.379185.3.579.2.462 Unknown [id number] 2.16840.1.572241.3.579.2.462 Unknown [id number] 2.16840.1.845062.3.579.2.462 Unknown [id number] 2.16840.1.151386.3.579.2.462 Unknown [id number] 2.16840.1.527605.3.579.2.462 Unknown [id number] 2.16840.1.143225.3.579.2.462 Unknown [id number] 2.16.840.1.504805.3.579.2.462 Unknown [id number] [id number] Social History Date Type Detail Facility Start: 12-17-2016 End: 01-29-2024 Tobacco smoking status NHIS Never smoked tobacco [facility] Work Phone: Start: 12-17-2016 End: 04-26-2024 Tobacco use and exposure Smokeless tobacco non-user [facility] Work Phone: Start: 01-30-2022 End: 01-29-2024 Alcohol intake Current non-drinker of alcohol (finding) [facility] Start: 2003 Sex Assigned At Not on file [facility] Start: 01-20-2022 End: 07-02-2022 Exposure to SARS-CoV-2 (event) Not sure [facility] Start: 01-31-2022 End: 06-21-2022 History SDOH Alcohol Frequency 1 [facility] Sex Assigned At [facility] Start: 06-17-2022 End: 02-07-2025 Alcohol intake Current drinker of alcohol (finding) [facility] Work Phone: Start: 06-17-2022 History SDOH Alcohol Frequency 2 [facility] Work Phone: Start: 12-22-2022 Tobacco smoking status Light tobacco smoker (finding) [facility] Start: 01-31-2022 End: 02-08-2025 History of Social function [facility] Work Phone: Start: 01-31-2022 End: 02-08-2025 Alcohol Use Disorder Identification Test - Consumption [AUDIT-C] [facility] Work Phone: How often to you hav e a drink containing alcohol? Never [facility] Work Phone: Average Number of Drinks Not on file [facility] Start: 03-03-2024 End: 03-05-2025 Tobacco smoking status NHIS Smokes tobacco daily [facility] Start: 2016 History of tobacco use Cigarette Smoker [facility] How often to you hav e a drink containing alcohol? 2-4 times a month [facility] How many standard dr inks containing alcohol do you have on a typical day? 10 or more [facility] How often do you hav e 6 or more drinks on 1 occasion? Monthly [facility] Start: 03-03-2024 Alcohol Comment 12 pack every other weekend [facility] Start: 08-12-2022 Tobacco Comment 3-4 cigarettes a day [facility] Start: 08-12-2022 Alcohol Comment 1 a week [facility] Start: 11-19-2015 End: 07-02-2022 Sex Male (finding) [facility] Start: 2003 Sex Assigned At Male [facility] Functional Status Date Assessment Result Facility 03-11-2023 Functional Status [facility] 03-11-2023 Functional Status Standard Safet y ID band on, Call device within reach, Bed in low position, Wheels locked, Bedside Cart Locked, Safety level maintained [facility] 12-22-2022 Functional Status Up [facility] 12-22-2022 Functional Status Standard Safet y ID band on, Call device within reach, Bed in low position, Wheels locked [facility] 06-16-2022 Functional Status Standard Safet y ID band on, Call device within reach, Bed in low position, Wheels locked, Upper/Half-Length side-rails up, Bedside Cart Locked, Visitor at bedside, Safety level maintained [facility] 04-17-2022 Functional Status Up [facility] Mental Status Date Assessment Result Facility 03-11-2023 Mental Status Orientation Oriented x 4 [facility] [place] [facility] 03-11-2023 Mental Status [facility] 12-22-2022 Mental Status Orientation Oriented x 4 [facility] 12-22-2022 Mental Status [facility] 06-16-2022 Mental Status Orientation Oriented x 4 [facility] [place] [facility] 04-17-2022 Mental Status Oriented x 4 [facility] Clinical Notes 04-29-2021 to 03-05-2025 Note Date & Type Note Facility 03-05-2025 Radiology Diagnostic study note [facility] Services [address] [place] [address] Testicular with Arterial Flow MR#: [id number] Acct: [id number] Name: JESSICA BARR Rep #: [id number] : 2005 M 19 From: Jaci Obrien MD PCP: ALEJANDRO Brown Status: RE G ER Study:Testicular with Arterial Flow Date of E xam: 03/05/25 Exam# [id number] Ordering Dr: Batsheva Markham ADDENDUM by Dr. Mauricio Obrien MD on 03/05/[address] Pisano was notified by Mauricio Obrien at 5:21 pm EST on 03/05/2025. Reading Location: [id number] 03/05/25 1724 Date cc: ALEJANDRO Mosher; KOFI Amato ~* Signed PROCEDURE: TESTICULAR WITH ARTERIAL FLOW 03/05/2025 REASON FOR EXAM: RIGHT TESTICLE PAIN TECHNIQUE: TESTICULAR WITH ARTERIAL FLOW COMPARISON: 03/04/2025 FINDINGS: Right testicle measures 4.4 x 3.6 x 2.6 cm and right epididymis measures 1.0 x 1.1 x 1.0 cm. Complex vascular mass is noted within the right testicle measuring 3.3 x 2.6 x 2.4 cm, grossly stable in size. Additional differential within the right testicle is torsion. Small hydrocele within the right. Left testicle measures 3.7 x 2.3 x 1.3 cm and left epididymis measures 0.7 x 1.3x 0.9 cm. Cyst within the left epididymis measuring 0.3 x 0.4 x 0.2 cm. Normal vascular flow is noted within the left testicle. No hydrocele or varicocele of the left. 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 Additional differential within the right testicle is torsion. Small hydrocele within the right. Reading Location: [facility] CC: ALEJANDRO Mosher; KOFI Amato ~ Ride Mechanic: Signed [facility] 03-04-2025 Hospital Discharg e instructions Additional Instructions The ultrasound shows no significant changes from yesterday. The mass is the same size. Call the urologist tomorrow to schedule an appointment. You can take ibuprofen 600 mg every 6 hours. Do not take it more frequently than this. I prescribed hydrocodone which can be taken every 6 hours. This medication can cause nausea, sedation, and constipation. I recommend you take a stool softener like MiraLAX or Dulcolax while using this medicine. [facility] Work Phone: 03-04-2025 Discharge summary [facility] 03-04-2025 Radiology Diagnostic study note [facility] Imaging Services [address] [place] [address] Testicular with Arterial Flow MR#: [id number] Acct: [id number] Name: JESSICA BARR Rep #: [id number] : 2005 M 19 From: Jaci Obrien MD PCP: ALEJANDRO Brown Status: RE G ER Study:Testicular with Arterial Flow Date of E xam: 03/04/25 Exam# [id number] Ordering Dr: Luciano Pisano DO PROCEDURE: TESTICULAR WITH ARTERIAL FLOW [...] testicular torsion. Small right-sided hydrocele. Reading Location: [id number] CC: CHARGING BOARD OPERATORWilliam Mosher; Dr. Kobe Pisano DO ~ Ride Mechanic: Signed [facility] 03-04-2025 Discharge summary Note Date/Time March 04, 2025 3:26pm [facility] Medical Records Department [address] [place] [address] Emergency Department Summary 03/04/25 MR#: [id number] Acct: [id number] Name: JESSICA BARR Rep #:[id number] : 2005 19 From: Kobe Pisano DO [...] injuries denies any painful urination hematuria polyuria PFSH PFSH Medical History Depression Anxiety Home [...] follow commands knew that he was at [facility] year is 2024 Skin: Warm, dry, [...] 73.9 H Lymph % (Auto) 13.7 L [place] % (Auto) 9.8 Eos % (Auto) 1.7 [...] Clarity Clear Urine pH 8.0 Ur Specific [place] 1.015 Urine Protein 15 H Urine Glucose [...] testicular torsion. Small right-sided hydrocele. Reading Location: [facility] Discharge Plan Triage Chief Complaint: Male Pain/Injury ED Provider: Kobe Pisano Dx/Rx/DC Orders Clinical Impression: Pain in right testicle, Mass of right testicle Prescriptions: No Action sertraline [Zoloft] 25 mg tablet 25 mg PO QHS Qty: 30 0RF Primary Care Provider: Mitali Mosher NP Referrals: Mitali Mosher NP, CHARGING BOARD OPERATOR-C [Primary Care Provider] - Feliz Van [...] urologist immediately. You can also follow-up with [facility] in [place] number is [phone]. Rotate Tylenol and ibuprofen sbetja-fdk-hrqzi for pain control when you do this you can take something every 3 hours max dose of Tylenol in 24 hours 4000 mg maxdose of ibuprofen in 24 hours 3200 mg. Print Language: Belizean Disposition Disposition: Home, Self Care What to do if you have Problems For any increased pain, shortness of breath, bleeding, nausea or vomiting, chestpain, or any unexpected problems, contact your Primary Care Provider. Call [facility] ([phone]) or report to the closest Emergency Room. Call 911 if necessary. 03/04/25 1526 <Electronically signed by Kobe Pisano DO> Cosigner Signature (if applicable): CC: ALEJANDRO Mosher ~ Signed [facility] Work Phone: [phone] Hospital Discharge instructionsAdditional Instructions You need to call Dr. Van office immediately Thursday morning as there is a high concern that you have testicular cancer as there is a mass in your right testicle. If they are unable to see you secondary to insurance reasons or any other reason you need to follow-up with a another urologist immediately. You can also follow-up with [facility] in [place] number is [phone]. Rotate Tylenol and ibuprofen gilatt-sic-bzawn for pain control when you do this you can take something every 3 hours max dose of Tylenol in 24 hours 4000 mg max dose of ibuprofen in 24 hours 3200 mg.[facility] Work Phone: [phone] Hospital Discharge instructions Patient Education 02/23/2025 05:59:15 [...] wound Decreased movement around the injured area [phone] [employer] [address] [place] [address]. All rights reserved. This information is not intended as a substitute for professional medical care. Always follow yourhealthcare professional's instructions. Follow Up Care 02/23/2025 05:50:31 With:MITALI MOSHER APRN-CHILDREN'S BOOK AUTHOR Address: [address] [place] [address] Physicians [place], [place] [id number]- [phone] When:2-4 days [facility] 06-19-2025 Note Discharge Instructions Thank you for allowing [facility] to assist you with your healthcare needs. [...] Up with MITALI MOSHER When:Within 2-4 days [facility] [place] [address]- [phone] Allergies NKA Medications Please ask your primary [...] wound Decreased movement around the injured area [phone] [employer] [address] [place] [address], [place] [address]. All rights reserved. This information is not intended as a substitute for professional medical care. Always follow yourhealthcare professional's instructions. Additional Information VACCINATE! IT SAVES LIVES! Members of the community who have not yet received the COVID-19 vaccine and would like to receive it can visit one of [facility] vaccine clinics. There are many vaccine clinic locations within the [facility]. For locations and available times, please visit www.[email or web address].[place].gov/. It is important to note that some COVID mobile vaccine clinics are held outdoors and may be canceled in rainy or stormy conditions. To learn more about pediatric vaccinations (ages 5-11), we invite you to visit the [facility] webpage. https://[email or web address]/pages/[email or web address]-[email or web address]-[email or web address] stions.htmlTo learn more about the COVID-19 vaccine, we invite you to visit the CDC website for a list of frequently asked questions. https://www.cdc.gov/coronavirus/2019-ncov/vaccines/faq.html [facility] Patient Portal Access Instructions: Stay connected with your healthcare team and access your personal medical information anytime with the [employer] Patient Portal. If you would like a full copy of your medical records please contact the [facility] Medical Records Department Thursday through Thursday between 8a.m. and 4:30p.m. Please follow the directions below to access the portal: 1.Access the email account you provided upon registration to the hospital.2.Look for an invitation email from [facility].3.Open the email and access the invitation link: Accept Invitation to [facility]4.Fill in the required momin to create your account. Sign into www.[employer] with your username and password that you [...] you will allow to register on the [employer] Patient Portal for access to your information. You can also access the [employer] Patient Portal on the [employer] sammy. Simply click on Health Records under [employer] and then click on the [facility] logo. [...] Call your local pharmacy or go to [email or web address] to find one close to you.3.Make use of household items: Use cat litter or old coffee grounds to dispose medications if other options arenot available. Mix your drugs with these household products, seal them in an airtight container andthrow it into the garbage. Call [facility]: [phone] to be sure your drugs can be [...] aware that I should contact my doctor. Patient/Filter Helper Signature: Date/Time: Relationship to Patient: Witness Name/Signature: Date/Time: [facility]06-09-2025 Telephone encounter Note* Telephone Encounter - Aura Mendosa - 02/13/2025 2:07 PM EDT Left message to schedule appointment [facility]06-09-2025 Miscellaneous Notes* Telephone Encounter - Aura Mendosa - 02/13/2025 2:07 PM EDT Left message to schedule appointment * Telephone Encounter - Aura Mendosa - 02/08/2025 2:23 PM EDT ----- Message [...] which facility was the patient seen at: [facility] bath Was an appointment scheduled (Y/N): N Person calling if other than patient: N Return call to if other than patient: N Best contact number: [phone] Thank you, Mario Kay February 08, 2025 10:20 AM documented in [facility] Hospital Discharge instructions Patient Education 02/08/2025 [...] bent back when typing. You may use gfib-rmb-qmwhexy pain medicine to treat pain and inflammation, [...] Your whole arm becomes swollen or weak [phone] [employer] [address] [place] [address]. All rights reserved. This information is not intended as a substitute for professional medical care. Always follow yourhealthcare professional's instructions. Follow Up Care 02/08/2025 16:26:34 With:LUL CHICAS DO [facility] Address: [address] [facility] [place] [address]- [phone] When:2-4 days With:AMILCAR CASON DO, Orthopedic Address: [address] [place] [address]- [phone] When:2-4 days With:ROSEMARIE ZIMMERMAN DO, Orthopedic Address: [address] [facility], [place] [address]- [phone] When:2-4 days With:JUSTO FLORES DO, Orthopedic Address: [address] [place] [address], [address] [place] [address]- [phone] When:2-4 days [facility] 06-04-2025 Note Discharge Instructions Thank you for [...] Appointments Follow Up with LUL CHICAS DO, [facility] When:Within 2-4 days Where:[address] [facility] [place] [address] [phone] Follow Up with AMILCAR CASON DO, Orthopedic When:Within 2-4 days Where:[address] [facility], [place] [address]- [phone] Follow Up with ROSEMARIE ZIMMERMAN DO, Orthopedic When:Within 2-4 days Where:[address] [facility], [place] [address] [phone] Follow Up with JUSTO FLORES DO, Orthopedic When:Within 2-4 days Where:[address] [place] [address]- [phone] Allergies NKA Medications Please ask your primary doctor or pharmacist before taking any other medication not listed, including over the counter drugs, herbal medications, vitamins and or supplements as they may interact withur home medications. What How Much When Why [...] are a day sleeper or work a overnight houseperson; or kidney disease (or if you are [...] may report side effects to FDA at 0-592-LHF-2625. What other drugs will affect gabapentin? Taking [...] may affect gabapentin. This includes prescription and vpat-gdc-xsslgus medicines, vitamins, and herbal products. Not all [...] to ensure that the information provided by [employer]. ('[employer]') is accurate, up-to-date, and complete, but no guarantee is made to that effect. Drug information contained herein may be time sensitive. [employer] information has been compiled for use by healthcare practitioners and consumers in the [place] and therefore [employer] does not warrant that uses outside of the [place] are appropriate, unless specifically indicated otherwise. [employer]'s drug information does not endorse drugs, diagnose patients or recommend therapy. tokia.lts drug information isan informational resource designed to [...] effective or appropriate for any given patient. [employer] does not assume any responsibility for any aspect of healthcare administered with the aid of information [employer] provides. The information contained herein is not intended to cover all possible uses, directions, precautions, warnings, drug interactions, allergic reactions, or adverse effects. If you have questions about the drugs you are taking, check with your doctor, nurse or pharmacist. Copyright 6428-8882 [employer]. Version: 18.01. Revision Date: 03/09/2023. methylprednisolone (oral) [...] expected to produce life threatening symptoms. However, alf use of high steroid doses can lead [...] may report side effects to FDA at 7-912-XPI-0356. What other drugs will affect methylprednisolone? Other drugs may interact with methylprednisolone, including prescription and gbcu-qvn-lcjkwux medicines, vitamins, and herbal products. Tell each [...] to ensure that the information provided by [employer]. ('Multum') is accurate, up-to-date, and complete, but no guarantee is made to that effect. Drug information contained herein may be time sensitive. [employer] information has been compiled for use by healthcare practitioners and consumers in the [place] and therefore [employer] does not warrant that uses outside of the [place] are appropriate, unless specifically indicated otherwise. tokia.lts drug information does not endorse drugs, diagnose patients or recommend therapy. tokia.lts drug information isan informational resource designed to [...] effective or appropriate for any given patient. [employer] does not assume any responsibility for any aspect of healthcare administered with the aid of information Multum provides. The information contained herein is not intended to cover all possible uses, directions, precautions, warnings, drug interactions, allergic reactions, or adverse effects. If you have questions about the drugs you are taking, check with your doctor, nurse or pharmacist. Copyright 5457-0527 [employer]. Version: 9.01. Revision Date: 05/06/2017. Education Materials [...] bent back when typing. You may use rdzg-txk-ctjziib pain medicine to treat pain and inflammation, [...] Your whole arm becomes swollen or weak 5414-8091 [employer] [address] [place] [address]. All rights reserved. This information is not intended as a substitute for professional medical care. Always follow yourhealthcare professional's instructions. Additional Information VACCINATE! IT SAVES LIVES! Members of the community who have not yet received the COVID-19 vaccine and would like to receive it can visit one of [facility] vaccine clinics. There are many vaccine clinic locations within the [facility]. For locations and available times, please visit www.gettheshot.coronavirus.[place].gov/. It is important to note that some COVID mobile vaccine clinics are held outdoors and may be canceled in rainy or stormy conditions. To learn more about pediatric vaccinations (ages 5-11), we invite you to visit the [facility] webpage. https://www.[facility].org/pages/9793-Gsohh-Omlqlgwhmev-Mhbxwqmljb-Fuqee-Qis stions.htmlTo learn more about the COVID-19 vaccine, we invite you to visit the CDC website for a list of frequently asked questions. https://www.cdc.gov/coronavirus/2019-ncov/vaccines/faq.html [facility] Patient Portal Access Instructions: Stay connected with your healthcare team and access your personal medical information anytime with the [facility] Patient Portal. If you would like a full copy of your medical records please contact the [facility] Medical Records Department Thursday through Thursday between 8a.m. and 4:30p.m. Please follow the directions below to access the portal: 1.Access the email account you provided upon registration to the [facility].2.Look for an invitation email from [facility].3.Open the email and access the invitation link: Accept Invitation to [employer]4.Fill in the required momin to create your account. Sign into [email or web address] with your username and password that you [...] you will allow to register on the [facility] Patient Portal for access to your information. You can also access the [employer] Patient Portal on the Youth Noise sammy. Simply click on Health Records under [employer] and then click on the Norah logo. [...] Call your local pharmacy or go to [email or web address] to find one close to you.3.Make use of household items: Use cat litter or old coffee grounds to dispose medications if other options arenot available. Mix your drugs with these household products, seal them in an airtight container andthrow it into the garbage. Call [facility]: [phone] to be sure your drugs can be [...] aware that I should contact my doctor. Patient/Filter Helper Signature: Date/Time: Relationship to Patient: Witness Name/Signature: Date/Time: [facility]06-04-2025 Telephone encounter Note* Telephone Encounter - Jose Dana Aura Suazo - 02/08/2025 2:23 PM EDT ----- Message [...] which facility was the patient seen at: [facility] bath Was an appointment scheduled (Y/N): N Person calling if other than patient: N Return call to if other than patient: N Best contact number: [phone] Thank you, Mario Kay February 08, 2025 10:20 AM [facility]05-25-2025 Discharge summary [facility] Medical Records Department [address] [place] [address] Emergency Department Summary 01/29/25 MR#: [id number] Acct: [id number] Name: JESSICA BARR Rep #:[id number] : 2005 19 From: Lupillo Alvarado MD [...] Prior similar symptoms: No Recent Ill[facility] Medical History Depression Anxiety Home Medications [...] - Keep Omega appointment Mitali Mosher NP, CHARGING BOARD OPERATOR-C [Primary Care Provider] - 1-2 Weeks Activity Restrictions/Additional Instructions: 1. Your blood pressure readings are elevated. Should have this rechecked by your provider YANCY Almazan. 2. Take 1 Zoloft tablet at bedtime. 3. Make/keep appointment at counseling center Print Language: Belizean Disposition Disposition: Home, Self Care What to do if you have Problems For any increased pain, shortness of breath, bleeding, nausea or vomiting, chestpain, or any unexpected problems, contact your Primary Care Provider. Call [facility] ([phone]) or report tothe closest Emergency Room. Call 911 if necessary. 01/29/25 0539 Cosigner Signature (if applicable): CC: ALEJANDRO Mosher ~ Signed [facility]02-11-2025 Telephone encounter Note* Telephone Encounter - Fabiola [...] as a reminder for OPTIONAL repeat imaging. [id number] Miscellaneous Notes* Telephone Encounter - Fabiola Arshad [...] for OPTIONAL repeat imaging. documented in this [facility]12-05-2024 Note ORIGINAL EXAMINATION: THREE XRAY VIEWS OF [...] Sign Date: 08/11/2024 3:52:26 PM Ordering Provider: [facility]09-26-2024 Note [facility] Medical Records Department [address] [place] [address] Discharge Summary 06/02/24 1442 MR#: [id number] Acct: [id number] Name: JESSICA BARR Rep #: [id number] : 2005 19 From: Yvette Nieto DO PCP: Care Physician,No Primary Status:ADM IN Location: [facility] DI954-3 Providers Date of Admission: 05/30/24 Date of [...] soft to palpation and (more content not included)...[facility]09-23-2024 Note [facility] Medical Records Department [address] [place] [address] Consultation 05/30/24 1526 MR#: [id number] Acct: [id number] Name: JESSICA BARR Rep #: [id number] : 2005 19 From: Yuriy Ding MD [...] M who presents with a pharyngeal abscess. Redwood positive, progressively worsening sore throat; placed on prednisone, no antibiotics. CT demonstrated right lateral pharyngeal abscess. Clear voice, tolerating secretions. [facility] Medications ???Medication ???Instructions ???Recorded ???Last Taken [...] 90.2 H, Lymph % (Auto) 3.9 L, Redwood % (Auto) 4.5, Eos % (Auto) 0.0, [...] (if applicable): CC: No Primary Care Physician [facility] Instructions* Patient Instructions* Ivonne Cooper APRN.[facility] AUTHOR - 05/13/2024 12:37 PM EDT ASSESSMENT/PLAN: 1. [...] Discussed expected course of illness Ivonne Cooper APRN.[facility] AUTHOR Treatment for Viral Upper Respiratory Tract Infections [...] fluids help open respiratory and sinus passages [place] Nasal [place] may offer relief of nasal and head [...] worse rather than better [facility] NoteHNO ID: [id number] Author: IVONNE COOPER APRN.[facility] AUTHOR Service: ? Author Type: Nurse Practitioner Type: [...] Maternal Grandmother Coronary Artery Disease Maternal Grandfather SD Coronary Artery Disease Paternal Grandfather SD Breast Cancer Other Social History Tobacco Use [...] Discussed expected course of illness Ivonne Cooper APRN.[facility]09-06-2024 History of Present illness Narrative* Ivonne Cooper APRN.[facility] AUTHOR - 05/13/2024 12:34 PM EDT Subjective Fever [...] Maternal Grandmother Coronary Artery Disease Maternal Grandfather SD Coronary Artery Disease Paternal Grandfather SD Breast Cancer Other Social History Tobacco Use [...] Discussed expected course of illness Ivonne Cooper APRN.[facility] AUTHOR [facility]24 NoteHNO ID: [id number] Author: LUL BROWN APRN.BENNY Service: ? Author Type: Nurse Practitioner [...] Maternal Grandmother Coronary Artery Disease Maternal Grandfather SD Coronary Artery Disease Paternal Grandfather SD Breast Cancer Other Social History Tobacco Use [...] of care. This note was generated using [employer] software. It may contain errors in wording, punctuation, or spelling. Lul Brown APRN.[facility]08-20-2024 History of Present illness Narrative* Lul Brown APRN.[facility] AUTHOR - 04/26/2024 2:03 PM EDT Subjective HPI [...] Maternal Grandmother Coronary Artery Disease Maternal Grandfather SD Coronary Artery Disease Paternal Grandfather SD Breast Cancer Other Social History Tobacco Use [...] of care. This note was generated using [employer] software. It may contain errors in wording, punctuation, or spelling. Lul Brown APRN.BENNY [facility]-2024 NoteHNO ID: [id number] Author: LAVERNE ZAMBRANO APRN.BENNY Service: ? Author [...] Maternal Grandmother Coronary Artery Disease Maternal Grandfather SD Coronary Artery Disease Paternal Grandfather SD Breast Cancer Other Social History Tobacco Use [...] HENT: Head: Normocephalic and atraumatic. Mouth/Throat: Lips: Radley. Mouth: Mucous membranes are moist. Pharynx: Uvula [...] - STREP A MOLECULAR (POC) Laverne Zambrano APRN.[facility]07-12-2024 History of Present illness Narrative* Laverne Zambrano APRN.BENNY - 03/18/2024 1:22 PM EDT Subjective HPI [...] Maternal Grandmother Coronary Artery Disease Maternal Grandfather SD Coronary Artery Disease Paternal Grandfather SD Breast Cancer Other Social History Tobacco Use [...] HENT: Head: Normocephalic and atraumatic. Mouth/Throat: Lips: Radley. Mouth: Mucous membranes are moist. Pharynx: Uvula [...] - STREP A MOLECULAR (POC) Laverne Zambrano APRN.[facility] AUTHOR [facility] History of Present illness Narrative* John [...] PATIENT PRESENTS WITH AN IMPLANTABLE OR ATTACHED BOBJ DEVELOPER: No RADIOLOGY DEPARTMENT: General X-ray: Exam(s) Completed: Chest X-Ray PERIPHERAL IV DATA: Not applicable SIGNED BY: RT Mary Ann(Liberty) March 18, 2024 1:20 PM documented in [facility]07-[facility]-2024 NoteHNO ID: [id number] Author: JOHN DAVIS RT(R) Service: Radiology Author [...] PATIENT PRESENTS WITH AN IMPLANTABLE OR ATTACHED BOBJ DEVELOPER: No RADIOLOGY DEPARTMENT: General X-ray: Exam(s) Completed: Chest X-Ray PERIPHERAL IV DATA: Not applicable SIGNED BY: RT Mary Ann(Liberty) March 18, 2024 1:20 [facility]06-27-2024 NoteHNO ID: [id number] Author: PRAKASH ZHAO MD Service: ? Author Type: Physician Type: Progress Notes Filed: 03/03/2024 15:38 Note Text: This note was created using Graph Storyriter. Subjective Jessica Barr is a 18 year [...] counseled on risks of binge consumption. Prakash Zhao, [facility]06-27-2024 History of Present illness Narrative* Prakash Zhao MD - 03/03/2024 2:48 PM EDT This note was created using Graph Storyriter. Subjective Jessica Barr is a 18 year [...] consumption. Prakash Zhao MD [facility]06-[facility]-2024 NoteHNO ID: [id number] Author: MIRIAM WATSON PA-C Service: ? Author Type: Physician Television News Photographer Type: Progress Notes Filed: 02/29/2024 12:41 Note Text: This note was created using Graph Storyriter. Subjective Jessica Barr is a 18 year [...] Maternal Grandmother Coronary Artery Disease Maternal Grandfather SD Coronary Artery Disease Paternal Grandfather SD Breast Cancer Other Social History Tobacco Use [...] symptoms - STREP A MOLECULAR (POC) KOFI Springer-[facility]06-24-2024 History of Present illness Narrative* Miriam Watson PA-C - 02/29/2024 12:39 PM EDT This note was created using NoteWriter. Subjective [...] Maternal Grandmother Coronary Artery Disease Maternal Grandfather SD Coronary Artery Disease Paternal Grandfather SD Breast Cancer Other Social History Tobacco Use [...] (POC) Miriam Watson PA-C [facility]06-[facility]-2024 Instructions* Patient Instructions* Miriam Watson PA-C - 02/29/2024 11:[address] Zhao follow up for smoking cessation Dayquil/Nyquil otc for cold symptoms If not better inone geraldo fajardo sen again documented in this [facility]05-24-2024 NoteHNO ID: [id number] Author: IVONNE COOPER APRN.[facility] AUTHOR Service: ? Author Type: Nurse Practitioner Type: [...] Maternal Grandmother Coronary Artery Disease Maternal Grandfather SD Coronary Artery Disease Paternal Grandfather SD Breast Cancer Other Social History Tobacco Use [...] Discussed expected course of illness [facility] Cooper [facility] History of Present illness Narrative* Ivonne Cooper APRN.[facility] AUTHOR - 01/29/2024 8:48 AM EDT Images from [...] Maternal Grandmother Coronary Artery Disease Maternal Grandfather SD Coronary Artery Disease Paternal Grandfather SD Breast Cancer Other Social History Tobacco Use [...] illness Ivonne Cooper APRN.BENNY documented in [facility]05-24-2024 Instructions* Patient Instructions* Ivonne Cooper APRN.CNP [...] possibleand wear sandals when possible. To treat ahtlete s foot, use kvom-qfl-xhumasw medicated foot powder or cream such as [...] one week of treatment. [facility]07-[facility]-2023 Note Discharge Instructions Thank you for [...] Schedule the Following Appointments Follow Up with [facility] When Within 3-5 days Where: [address] [place] [address]- Allergies NKA Medications Please ask your primary [...] cramping, and pain worse. If taking medicines: Xcdk-hja-unurfjj nausea and diarrhea medicines are generally OK [...] with soap and water and using alcohol-based nail maker is the best way to prevent the [...] Keep uncooked meats away from cooked and yolgk-bu-pvb foods. Use a food thermometer when cooking. [...] or as directed by your healthcare provider 7453-4086 [employer] [address] [place] [address]. All rights reserved. This information is not intended as a substitute for professional medical care. Always follow yourhealthcare professional's instructions. Additional Information VACCINATE! IT SAVES LIVES! Members of the community who have not yet received the COVID-19 vaccine and would like to receive it can visit one of [facility] vaccine clinics. There are many vaccine clinic locations within the [facility]. For locations and available times, please visit www.gettheshot.coronavirus.[place].gov/. It is important to note that some COVID mobile vaccine clinics are held outdoors and may be canceled in rainy or stormy conditions. To learn more about pediatric vaccinations (ages 5-11), we invite you to visit the [facility] webpage. https://www.[facility].org/pages/6669-Xfoks-Dzohxoeoxev-Mkrqbtabwb-Mnobm-Yqi stions.htmlTo learn more about the COVID-19 vaccine, we invite you to visit the CDC website for a list of frequently asked questions. https://www.cdc.gov/coronavirus/2019-ncov/vaccines/faq.html [facility] Patient Portal Access Instructions: Stay connected with your healthcare team and access your personal medical information anytime with the [facility] Patient Portal. If you would like a full copy of your medical records please contact the [facility] Medical Records Department Thursday through Thursday between 8a.m. and 4:30p.m. Please follow the directions below to access the portal: 1.Access the email account you provided upon registration to the [facility].2.Look for an invitation email from [facility].3.Open the email and access the invitation link: Accept Invitation to [facility]4.Fill in the required momin to create your account. Sign into www.[employer] with your username and password that you [...] you will allow to register on the [facility] Patient Portal for access to your information. You can also access the [employer] Patient Portal on the Youth No[employer] sammy. Simply click on Health Records under [employer] and then click on the Norah logo. [...] Call your local pharmacy or go to http://bit.ly/1F5Qd9a to find one close to you.3.Make use of household items: Use cat litter or old coffee grounds to dispose medications if other options arenot available. Mix your drugs with these household products, seal them in an airtight container andthrow it into the garbage. Call [facility]: [phone] to be sure your drugs can be [...] aware that I should contact my doctor. Patient/Filter Helper Signature: Date/Time: Relationship to Patient: Witness Name/Signature: Date/Time: [facility]07-05-2023 Hospital Discharge instructions Patient Education 03/11/2023 15:26:59 [...] cramping, and pain worse. If taking medicines: Tknb-aov-qoftjhp nausea and diarrhea medicines are generally OK [...] with soap and water and using alcohol-based nail maker is the best way to prevent the [...] Keep uncooked meats away from cooked and mwrbt-ns-dtk foods. Use a food thermometer when cooking. [...] or as directed by your healthcare provider 7692-0149 [employer] [address] [place] [address]. All rights reserved. This information is not intended as a substitute for professional medical care. Always follow yourhealthcare professional's instructions. Follow Up Care 03/11/2023 14:21:03 With:[facility] Address: [address] [place] [address]- When:3-5 days [facility] 07-05-2023 Evaluation + Plan note Diagnostic Tests Pending * Stool Gastrointestinal Panel 03/11/23 * Fecal Leukocytes 03/11/23 * Stool Culture 03/11/23 [facility] 04-17-2023 Hospital Discharge instructions Patient Education 12/22/2022 [...] fluids will help loosen secretionsin the lungs. Vefh-iye-tkhdzbc cough medicines that contain dextromethorphan (such as [...] Lower leg swelling, tenderness, redness or pain 3288-3066 [employer] [address] [place] [address], [place] [address]. All rights reserved. This information is not [...] fluids will help loosen secretionsin the lungs. Fmek-amh-hnrwzxe cough medicines that contain dextromethorphan (such as [...] Lower leg swelling, tenderness, redness or pain 0480-6698 [employer] [address] [place] [address]. All rights reserved. This information is not intended as a substitute for professional medical care. Always follow yourhealthcare professional's instructions. Follow Up Care 12/22/2022 13:04:26 With:Go to emergency room if symptoms worsen Address:Unknown When:2-4 days With:Call Physician Referral Address:Unknown When:2-4 days [facility] 04-17-2023 Note Discharge Instructions Thank you for allowing [facility] to assist you with your healthcare needs. [...] may report side effects to FDA at 0-082-FEX-5684. What other drugs will affect albuterol inhalation? [...] may affect albuterol inhalation, including prescription and rbbg-kal-rjspwto medicines, vitamins, and herbal products. Not all [...] to ensure that the information provided by [employer]. ('Pod Innstum') is accurate, up-to-date, and complete, but no guarantee is made to that effect. Drug information contained herein may be time sensitive. [employer] information has been compiled for use by healthcare practitioners and consumers in the [place] and therefore [employer] does not warrant that uses outside of the [place] are appropriate, unless specifically indicated otherwise. tokia.lts drug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
--- OUTSIDE RECORDS SUMMARY | 2025-03-05 18:25 | XMS RPT_ITS | CCD ---
Author Organization [facility] Care Team Providers Care Supervisor Modern Languages Name Role Phone Vasquez Moctezuma Primary Care Provider [phone] Prakash Zhao MD Primary Care Provider [phone] JOSE ELIAS CALVIN, VASQUEZ Arevalo Primary Care Physician [phone] Unavailable Primary Care Provider UnavailOMAR Carrillo Attending [...] Prakash Zhao MD Primary Care Provider [phone] PRAKASH ZHAO Primary Care Unavailable ANDREI, PRAKASH [...] Riana Alvarado MD, Dr. Wesley Emergency Provider [phone] Vidhi HAINES-C, Mitali Primary Care Provider Aby STONE PAVER.BROADCAST CHECKER, Megan M Unavailable GIRMA BOYD Attending Unavailable PRAKASH ZHAO Primary Care Unavailable MEHRDAD STONE PAVER-BROADCAST CHECKER, DARREN Gonzales Attending Linus MOSHER STONE PAVER-BROADCAST CHECKER, MITALI A Primary Care Un available REG SHARPE DO Attending Unavailable VIDHI STONE PAVER-BROADCAST CHECKER, MITALI A Primary Care Un available SARBJIT CALVIN, DR KAIRA Koenig Attending Unavailcésar MOSHER STONE PAVER-BROADCAST CHECKER, MITALI A Primary Care Un available Christiano CALVIN, Dr. Wesley Attending Provider [phone] Norris MARSHALL, Dr. Bullock Referring Provider Norris MARSHALL, Dr. Bullock Emergency Provider Yvette Nieto Attending Unavailable Felecia Roland Admitting Unavailable Care Physician, No Primary Primary Care Unava ilable Yuriy Ding Consulting UnavailFelecia Morgan Consulting Unavailable Yvette Nieto Consulting Unavailable Jacques Paul Attending Unavailable Care Physician, No Primary Primary Care Unava ilable Lupillo Alvarado Attending Unavailable Vidhi ELECTRONICS ENGINEERING TECHNOLOGIST, [place] Primary Care Unavailcésar Mosher ELECTRONICS ENGINEERING TECHNOLOGIST, [place] Primary Care UnavailKobe Canas Attending Unavailable Kobe Pisano Referring Unavailable Vidhi ELECTRONICS ENGINEERING TECHNOLOGIST, Mitali Primary Care UnavailKobe Canas Attending Unavailable [...] food/milk, # 30 tab(s), 0 Refill(s), Pharmacy: [facility]/pharmacy #[id number], Right wrist pain, [...] qDay, # 90 tab(s), 0 Refill(s), Pharmacy: [facility]/pharmacy #[id number], Anxiety, 175, cm, [...] IVPB extended infusion (premix) polyethylene glycol 3350 69065 mg powder for oral solution (1 source) [...] qDay, # 30 tab(s), 0 Refill(s), Pharmacy: [facility]/pharmacy #[id number], Generalized anxiety disorder, [...] Kelvin won 03-05-2025 Testicular with Arterial Flow [facility] Imaging Services [address] [place], [place] [id number] Testicular with Arterial Flow MR#: [id number] Acct: [id number] Name: JESSICA BARR Rep #: [id number] : 2005 M 19 From: Mauricio Schrader PCP: ALEJANDRO Brown Status: REG ER Study: Testicular with Arterial Flow Date of Exam: Exam# [id number] Ordering Dr: Batsheva García ADDENDUM by Dr. Mauricio Obrien MD on 03/05/[address] Pisano was notified by Mauricio Obrien at 5:21 pm EST on 03/05/2025. Reading Location: [id number] 03/05/25 1724 Date cc: ALEJANDRO Mosher; KOFI [...] Small hydrocele within the right. Reading Location: [id number] CC: ALEJANDRO Mosher; KOFI Amato Package Checker: Signed Normal [facility] Absolute lymphocyte countOrd ered By: Kobe Pisano on 03-04-2025 Lymphocytes Auto (Unsp spec) [#/Vol] 1.06 10*3/uL 0.83-4.51 [facility] Absolute neutrophil countOrd ered By: Kobe Pisano on 03-04-2025 Neutrophils (Bld) [#/Vol] 5.7 10*3/uL 2.0-7.7 [facility] Amorphous sediment detection in urine sediment by light microscopyOrdered By: Kobe Pisano on 03-04-2025 Amorphous sediment LM Ql (Urine sed) 1+ [facility] Anion gap in Serum or Plasma Ordered By: Kobe Pisano on 03-04-2025 Anion gap [Moles/Vol] 10 mmol/L 5-15 [facility] Automated lymphocyte count a s percentage of total leukocytesOrdered By: Kobe Pisano on 03-04-2025 Lymphocytes/100 WBC Auto (Unsp spec) 13.7 % Low 19-41 [facility] BUN/creatinine ratioOrdered By: Kobe Pisano on 03-04-2025 Urea nitrogen/Creatinine [Mass ratio] 10.1 mg/mg 10-20 [facility] Basophil percentageOrdered B y: Kobe Pisano on 03-04-2025 Basophils/100 WBC (Bld) 0.6 % 0-1 [facility] Bilirubin Test strip Ql (U)O rdered By: Kobe Pisano on 03-04-2025 Bilirubin Ql (U) Negative Negative [facility] Bilirubin, totalOrdered By: Kobe Pisano on 03-04-2025 Bilirubin [Mass/Vol] 0.65 mg/dL 0.00-1.30 [facility] CBC W/Diff, Automatedon 02-06 Absolute Lymph 1.06 X10 3/uL Normal 0.83-4.51 [facility] Comment on above: Performed By: #### L 100.0100, L500.4050 #### [facility] [address] [place], [address] Absolute Neut 5.7 X10 3/uL Normal 2.0-7.7 [facility] Comment on above: Performed By: #### L 100.0100, L500.4050 #### [facility] [address] [place], [address] Basophils/100 WBC (Bld) 0.6 % Normal 0-1 [facility] Comment on above: Performed By: #### L 100.0100, L500.4050 #### [facility] [address] [place], [address] Eosinophils/100 WBC (Bld) 1.7 % Normal 0-5 [facility] Comment on above: Performed By: #### L 100.0100, L500.4050 #### [facility] [address] [place], [address] Erythrocyte distribution width (RBC) [Ratio] 13.3 % Normal 11.6-14.6 [facility] Comment on above: Performed By: #### L 100.0100, L500.4050 #### [facility] [address] [place], [address] Hematocrit (Bld) [Volume fraction] 42.1 % Normal 40-54 [facility] Comment on above: Performed By: #### L 100.0100, L500.4050 #### [facility] [address] [place], [address] Hemoglobin (Bld) [Mass/Vol] 14.6 g/dL Normal 13.0-16.5 [facility] Comment on above: Performed By: #### L 100.0100, L500.4050 #### [facility] [address] [place], [address] IG% 0.300 Normal 0.0-0.9 [facility] Comment on above: Result Comment: IG% - Immature Granulocytes (promyelocytes, myelocytes and metamyelocytes) > 1% indicates that a LEFT SHIFT is Present. Performed By: #### L 100.0100, L500.4050 #### [facility] [address] [place], [address] Lymphocytes/100 WBC (Bld) 13.7 % Low 19-41 [facility] Comment on above: Performed By: #### L 100.0100, L500.4050 #### [facility] [address] [place], [address] MCH (RBC) [Entitic mass] 29.4 pg Normal 27.0-32.0 [facility] Comment on above: Performed By: #### L 100.0100, L500.4050 #### [facility] [address] [place], [address] MCHC (RBC) [Mass/Vol] 34.7 g/dL Normal 32-36 [facility] Comment on above: Performed By: #### L 100.0100, L500.4050 #### [facility] [address] [place], [address] MCV (RBC) [Entitic vol] 84.7 fL Normal 80-94 [facility] Comment on above: Performed By: #### L 100.0100, L500.4050 #### [facility] [address] [place], [address] Monocytes/100 WBC (Bld) 9.8 % Normal 0-10 [facility] Comment on above: Performed By: #### L 100.0100, L500.4050 #### [facility] [address] [place], [address] Neutrophils/100 WBC (Bld) 73.9 % High 47-70 [facility] Comment on above: Performed By: #### L 100.0100, L500.4050 #### [facility] [address] [place], [address] Nucleated RBC (Bld) [#/Vol] 0 10*3/uL Normal 0-5 [facility] Comment on above: Performed By: #### L 100.0100, L500.4050 #### [facility] [address] [place], [address] Platelet mean volume (Bld) [Entitic vol] 9.6 fL Normal 6.2-12.0 [facility] Comment on above: Performed By: #### L 100.0100, L500.4050 #### [facility] [address] [place], [address] Platelets (Bld) [#/Vol] 386 10*3/uL Normal 150-450 [facility] Comment on above: Performed By: #### L 100.0100, L500.4050 #### [facility] [address] [place], [address] RBC (Bld) [#/Vol] 4.97 10*6/uL Normal 4.6-6.[address] [facility] Comment on above: Performed By: #### L 100.0100, L500.4050 #### [facility] [address] [place], [address] RDW SD 41.2 fl Normal 35.1-43.9 [facility] Comment on above: Performed By: #### L 100.0100, L500.4050 #### [facility] [address] [place], [address] WBC (Bld) [#/Vol] 7.8 10*3/uL Normal 4.4-11.0 [facility] Comment on above: Performed By: #### L 100.0100, L500.4050 #### [facility] [address] [place], [address] Carbon dioxide, total [Moles /volume] in Central venous bloodOrdered By: Kobe Pisano on 03-04-2025 CO2 [Moles/Vol] 24.1 mmol/L 21.0-32.0 [facility] Chloride assayOrdered By: Aleksandr Pisano on 03-04-2025 Chloride [Moles/Vol] 103 mmol/L 98-108 [facility] Comprehensive Metabolic Prof ilon 03-04-2025 Albumin [Mass/Vol] 4.1 g/dL Normal 3.5-5.0 [facility] Comment on above: Performed By: #### L 100.0100, L500.4050 #### [facility] [address] [place], [address] Albumin/Globulin [Mass ratio] 1.7 {ratio} Normal 0.9-2.4 [facility] Comment on above: Performed By: #### L 100.0100, L500.4050 #### [facility] [address] [place], [address] ALK PHOS 74 U/L Normal 40-129 [facility] Comment on above: Performed By: #### L 100.0100, L500.4050 #### [facility] [address] [place], [address] ALT [Catalytic activity/Vol] 10 U/L Normal <=46 [facility] Comment on above: Performed By: #### L 100.0100, L500.4050 #### [facility] [address] [place], [address] AST [Catalytic activity/Vol] 20 U/L Normal <=37 [facility] Comment on above: Performed By: #### L 100.0100, L500.4050 #### [facility] [address] [place], [address] Bilirubin [Mass/Vol] 0.65 mg/dL Normal 0.00-1.30 [facility] Comment on above: Performed By: #### L 100.0100, L500.4050 #### [facility] [address] [place], [address] BUN/CRE 10.1 RATIO Normal 10-20 [facility] Comment on above: Performed By: #### L 100.0100, L500.4050 #### [facility] [address] [place], [address] Calcium [Mass/Vol] 9.4 mg/dL Normal 7.6-11.0 [facility] Comment on above: Performed By: #### L 100.0100, L500.4050 #### [facility] [address] [place], [address] Chloride [Moles/Vol] 103 mmol/L Normal 98-108 [facility] Comment on above: Performed By: #### L 100.0100, L500.4050 #### [facility] [address] [place], [address] CO2 [Moles/Vol] 24.1 mmol/L Normal 21.0-32.0 [facility] Comment on above: Performed By: #### L 100.0100, L500.4050 #### [facility] [address] [place], [address] Creatinine [Mass/Vol] 0.83 mg/dL Normal 0.70-1.20 [facility] Comment on above: Performed By: #### L 100.0100, L500.4050 #### [facility] [address] [place], [address] ECRCL 140.78 ml/min Normal 50-250 [facility] Comment on above: Performed By: #### L 100.0100, L500.4050 #### [facility] [address] [place], [address] GAP 10 Normal 5-15 [facility] Comment on above: Performed By: #### L 100.0100, L500.4050 #### [facility] [address] [place], [address] GFR/1.73 sq M.predicted among non-blacks MDRD (S/P/Bld) [Vol rate/Area] 128 mL/min/{1.73_m2} Normal >60 [facility] Comment on above: Result Comment: mL/m in/1.73m2 CKD-EPI Creatinine Equation (2020) Performed By: #### L 100.0100, L500.4050 #### [facility] [address] [place], [address] Globulin (S) [Mass/Vol] 2.4 g/dL Normal 2.2-4.2 [facility] Comment on above: Performed By: #### L 100.0100, L500.4050 #### [facility] [address] [place], [address] Glucose [Mass/Vol] 108 mg/dL High 70-99 [facility] Comment on above: Performed By: #### L 100.0100, L500.4050 #### [facility] [address] [place], [address] Potassium [Moles/Vol] 4.7 mmol/L Normal 3.3-5.1 [facility] Comment on above: Performed By: #### L 100.0100, L500.4050 #### [facility] [address] [place], [address] Sodium [Moles/Vol] 137 mmol/L Normal 133-145 [facility] Comment on above: Performed By: #### L 100.0100, L500.4050 #### [facility] [address] [place], [address] T PROT 6.5 g/dL Normal 5.9-8.4 [facility] Comment on above: Performed By: #### L 100.0100, L500.4050 #### [facility] [address] [place], [address] Urea nitrogen [Mass/Vol] 8 mg/dL Normal 4-19 [facility] Comment on above: Performed By: #### L 100.0100, L500.4050 #### [facility] [address] [place], [address] Emergency Department Summary on 03-04-2025 Emergency Department Summary [facility] Medical Records Department [address] [place] [address] Emergency Department Summary 03/04/25 MR#: [id number] Acct: [id number] Name: JESSICA BARR Rep #: [id number] : 2005 19 From: Kobe Pisano DO [...] follow commands knew that he was at [facility] year is 2024 Skin: Warm, dry, tact [...] him followi (more content not included)... Normal [facility] Eosinophil percentageOrdered By: Kobe Pisano on 03-04-2025 Eosinophils/100 WBC (Bld) 1.7 % 0-5 [facility] Erythrocyte distribution wid th ratioOrdered By: Kobe Pisano on 03-04-2025 Erythrocyte distribution width (RBC) [Ratio] 13.3 % 11.6-14.6 [facility] Erythrocyte distribution wid th standard deviationOrdered By: Kobe Pisano on 03-04-2025 Erythrocyte distribution width (RBC) [Ratio] 41.2 fl 35.1-43.9 [facility] Glomerular filtration rate ( GFR) estimation/1.73 sq m using serum, plasma, or whole bOrdered By: Kobe Pisano on 03-04-2025 GFR/1.73 sq M.predicted among non-blacks MDRD (S/P/Bld) [Vol rate/Area] 128 mL/min/{1.73_m2} >60 [facility] Comment on above: mL/min/1.73m2 CKD-EP I Creatinine Equation (2020) Hematocrit Auto (Bld) [Volum e fraction]Ordered By: Kobe Pisano on 03-04-2025 Hematocrit (Bld) [Volume fraction] 42.1 % 40-54 [facility] Hemoglobin measurementOrdere d By: Kobe Pisano on 03-04-2025 Hemoglobin (Bld) [Mass/Vol] 14.6 g/dL 13.0-16.5 [facility] Immature granulocytes/100 WB C Auto (Bld)Ordered By: Kobe Pisano on 03-04-2025 Immature granulocytes/100 WBC (Bld) 0.300 % 0.0-0.9 [facility] Comment on above: IG% - Immature Granu locytes (promyelocytes, myelocytes and metamyelocytes) > 1% indicates that a LEFT SHIFT is Present. Ketones Test strip Ql (U)Ord ered By: Kobe Pisano on 03-04-2025 Ketones Ql (U) Negative Negative [facility] - Chemistry and C hemistry - challengeOrdered By: Kobe Pisano on 03-04-2025 AST [Catalytic activity/Vol] 20 U/L <38 [facility] MCV (mean corpuscular volume ) determinationOrdered By: Kobe Pisano on 03-04-2025 MCV (RBC) [Entitic vol] 84.7 fL 80-94 [facility] Mean corpuscular hemoglobin (MCH) determinationOrdered By: Kobe Pisano on 03-04-2025 MCH (RBC) [Entitic mass] 29.4 pg 27.0-32.0 [facility] Mean corpuscular hemoglobin concentration (MCHC) determinationOrdered By: Kobe Pisano on 03-04-2025 MCHC (RBC) [Mass/Vol] 34.7 g/dL 32-36 [facility] Mean platelet volume determi nationOrdered By: Kobe Pisano on 03-04-2025 Platelet mean volume (Bld) [Entitic vol] 9.6 fL 6.2-12.0 [facility] Microscopic analysis of urin e for red blood cells (RBC)Ordered By: Kobe Pisano on 03-04-2025 Microscopic analysis of urine for red blood cells (RBC) 0 SEEN /hpf 0-5 [facility] Monocyte percentageOrdered B y: Kobe Pisano on 03-04-2025 Monocytes/100 WBC (Bld) 9.8 % 0-10 [facility] Mucus LM Ql (Urine sed)Order ed By: Kobe Pisano on 03-04-2025 Mucus Ql (Urine sed) 0 SEEN /hpf [facility] Neutrophil percentageOrdered By: Kobe Pisano on 03-04-2025 Neutrophils/100 WBC (Bld) 73.9 % High 47-70 [facility] Nitrite Test strip Ql (U)Ord ered By: Kobe Pisano on 03-04-2025 Nitrite Ql (U) Negative Negative [facility] Nucleated red blood cell per centageOrdered By: Kobe Pisano on 03-04-2025 Nucleated RBC/100 WBC (Bld) [Ratio] 0 % 0-5 [facility] Platelet countOrdered By: Aleksandr Pisano on 03-04-2025 Platelets (Bld) [#/Vol] 386 10*3/uL 150-450 [facility] Potassium measurement (mass/ volume)Ordered By: Kobe Pisano on 03-04-2025 Potassium (Unsp spec) [Mass/Vol] 4.7 mmol/L 3.3-5.1 [facility] Protein Test strip Ql (U)Ord ered By: Kobe Pisano on 03-04-2025 Protein Ql (U) 15 mg/dl High Negative [facility] RBC Auto (Bld) [#/Vol]Ordere d By: Kobe Pisano on 03-04-2025 RBC (Bld) [#/Vol] 4.97 10*6/uL 4.6-6.[address] [facility] Serum creatinine measurement (mass/volume)Ordered By: Kobe Pisano on 03-04-2025 Creatinine [Mass/Vol] 0.83 mg/dL 0.70-1.20 [facility] Serum globulin measurementOr dered By: Kobe Pisano on 03-04-2025 Globulin (S) [Mass/Vol] 2.4 g/dL 2.2-4.2 [facility] Serum glucose measurement (m ass/volume)Ordered By: Kobe Pisano on 03-04-2025 Glucose [Mass/Vol] 108 mg/dL High 70-99 [facility] Serum or plasma alanine duval otransferase (ALT) measurementOrdered By: Kobe Pisano on 03-04-2025 ALT [Catalytic activity/Vol] 10 U/L <47 [facility] Serum or plasma albumin erica urement (mass/volume)Ordered By: Kobe Pisano on 03-04-2025 Albumin [Mass/Vol] 4.1 g/dL 3.5-5.0 [facility] Serum or plasma albumin/glob ulin mass ratioOrdered By: Kobe Pisano on 03-04-2025 Albumin/Globulin [Mass ratio] 1.7 {ratio} 0.9-2.4 [facility] Serum or plasma alkaline memo sphatase measurementOrdered By: Kobe Pisano on 03-04-2025 ALP [Catalytic activity/Vol] 74 U/L 40-129 [facility] Serum or plasma calcium erica urement (mass/volume)Ordered By: Kobe Pisano on 03-04-2025 Calcium [Mass/Vol] 9.4 mg/dL 7.6-11.0 [facility] Serum or plasma urea nitroge n measurement (mass/volume)Ordered By: Kobe Pisano on 03-04-2025 Urea nitrogen [Mass/Vol] 8 mg/dL 4-19 [facility] Sodium levelOrdered By: Severo Pisano on 03-04-2025 Sodium [Moles/Vol] 137 mmol/L 133-145 [facility] Squamous epithelial cells de tection in urine sediment by light microscopyOrdered By: Kobe Pisano on 03-04-2025 Epithelial cells.squamous LM Ql (Urine sed) 0 SEEN /hpf 0-5 [facility] Testicular with Arterial Kelvin won 03-04-2025 Testicular with Arterial Flow [facility] Imaging Services [address] [place], [place] [address] Testicular with Arterial Flow MR#: [id number] Acct: [id number] Name: JESSICA BARR Rep #: [id number] : 2005 M 19 From: Mauricio Schrader PCP: Mitali Mosher NP-C Status: REG ER Study: Testicular with Arterial Flow Date of Exam: Exam# [id number] Ordering Dr: Kobe Pisano DO PROCEDURE: TESTICULAR [...] testicular torsion. Small right-sided hydrocele. Reading Location: [id number] CC: ALEJANDRO Mosher; Dr. Kobe Pisano, Package Checker: Signed Normal [facility] Total proteinOrdered By: Yaquelin Pisano on 03-04-2025 Protein [Mass/Vol] 6.5 g/dL 5.9-8.4 [facility] Urinalysis, Completeon 03-04 AMORPHOUS 1+ Normal [facility] Comment on above: Order Comment: CLEAN CATCH Performed By: #### L 400.0001 #### [facility] [address] [place], [address] BACTERIA 0 SEEN Normal None Seen [facility] Comment on above: Order Comment: CLEAN CATCH Performed By: #### L 400.0001 #### [facility] [address] [place], [address] EPI,SQUAMOUS 0 SEEN Normal 0-5 [facility] Comment on above: Order Comment: CLEAN CATCH Performed By: #### L 400.0001 #### [facility] [address] [place], [address] Mucus Ql (Urine sed) 0 SEEN Normal [facility] Comment on above: Order Comment: CLEAN CATCH Performed By: #### L 400.0001 #### [facility] [address] [place], [address] RBC 0 SEEN Normal 0-5 [facility] Comment on above: Order Comment: CLEAN CATCH Performed By: #### L 400.0001 #### [facility] [address] [place], [place], [address] WBC 0 SEEN Normal 0-5 [facility] Comment on above: Order Comment: CLEAN CATCH Performed By: #### L 400.0001 #### [facility] [address] [place], [place], [address] Urine clarityOrdered By: Yaquelin Pisano on 03-04-2025 Clarity (U) Clear Clear [facility] Urine color determinationOrd ered By: Kobe Pisano on 03-04-2025 Color (U) Yellow Yellow [facility] Urine glucose detectionOrder ed By: Kobe Pisano on 03-04-2025 Glucose Ql (U) Normal mg/dl Normal [facility] Urine leukocyte esterase det ection by dipstickOrdered By: Kobe Pisano on 03-04-2025 Leukocyte esterase Test strip Ql (U) Negative Negative [facility] Urine pHOrdered By: Kobe florence on 03-04-2025 pH (U) 8.0 [pH] 5.0 - 8.0 [facility] Urine sediment bacteria coun t by microscopy (number/high power field)Ordered By: Kobe Pisano on 03-04-2025 Bacteria LM.HPF (Urine sed) [#/Area] 0 /[HPF] None Seen [facility] Urine specific gravity measu rementOrdered By: Kobe Pisano on 03-04-2025 Specific gravity (U) [Rel density] 1.015 1.002-1.030 [facility] Urine urobilinogen measureme ntOrdered By: Kobe Pisano on 03-04-2025 Urobilinogen Ql (U) Normal mg/dl Normal [facility] White blood cell (WBC) count Ordered By: Kobe Pisano on 03-04-2025 WBC (Bld) [#/Vol] 7.8 10*3/uL 4.4-11.0 [facility] White blood cell countOrdere d By: Kobe Pisano on 03-04-2025 White blood cell count 0 SEEN /hpf 0-5 [facility] Darby 02-08-2025 CNPN Telephone ([id number]) BLANCAJESSICA BARNETT ([id number]) 1 M Date Time Provider Department 02/08/25 [...] which facility was the patient seen at: [facility] bath Was an appointment scheduled (Y/N): N Person calling if other than patient: N Return call to if other than patient: N Best contact number: [phone] Thank you, Mario Kay February 08, 2025 [...] alcohol consumption [Z87.898] 03/03/2024 Encounter Status:Closed by [facility] BOOKMOBILE CLERK AURA SUAZO on 02/13/25 [facility] ALLIED HEALTHon 02-07-2025 ALLIED HEALTH HNO ID: [id number] Author: ANGELO RAMAN RT(R) Service: Radiology Author [...] PATIENT PRESENTS WITH AN IMPLANTABLE OR ATTACHED MAINFRAME SOFTWARE DEVELOPER: No RADIOLOGY DEPARTMENT: General X-ray: Exam(s) Completed: Upper Extremity X-Ray(s): Elbow, left PERIPHERAL IV DATA: Not applicable SIGNED BY: RT Earl(R) February 07, 2025 7:44 AM [facility] ED NOTEon 02-07-2025 ED NOTE HNO ID: [id number] Author: KAM WINKLER RN Service: Emergency Medicine [...] February 08, 2025 TIME: 10:09 AM Normal [facility] ED NOTE HNO ID: [id number] Author: MILY MUNSON RN Service: Emergency Medicine Author Type: Registered Nurse Type: ED Notes Filed: 02/07/2025 08:41 Note Text: Pt verbalized understanding of home going instructions. Normal [facility] ED NOTE HNO ID: [id number] Author: MILY MUNSON RN Service: Emergency Medicine Author Type: Registered Nurse Type: ED Notes Filed: 02/07/2025 07:23 Note Text: Pt c/o several weeks of numbness/tingling of left arm. Denies injury to left arm or neck. Toe Stapler equal and firm. Equal pulses present. Normal [facility] ED PROV NOTEon 02-07-2025 ED PROV NOTE HNO ID: [id number] Author: GIRMA BOYD DO Service: Emergency Medicine [...] Grandmother - Coronary Artery Disease Maternal Grandfather [place] - Coronary Artery Disease Paternal Grandfather [place] - Breast Cancer Other Social History Tobacco [...] motion of the elbow shoulder and wrist. Back Tender strength intact. Intrinsic muscles of the hand [...] injuries all (more content not included)... Normal [facility] XR ELBOW 2V AP/LAT LTon XR [...] erosion. Joint spaces are maintained. IMPRESSION: Unremarkable. Package Checker: ISAAC Transcribe Date/Time: Feb 07 2025 7:53A Dictated by : SHASHA HOUSE MD This examination was interpreted and the report reviewed and electronically signed by: SHASHA HOUSE MD on Feb 07 2025 7:54AM EST [id number] Normal [facility] Emergency Department Summary on 01-29-2025 Emergency Department Summary [facility] Medical Records Department [address] [place] [id number] Emergency Department Summary 01/29/25 MR#: [id number] Acct: [id number] Name: JESSICA BARR Rep #: [id number] : 2005 19 From: Lupillo Alvarado MD [...] Commands Oriented (more content not included)... Normal [facility] 36on 10-18-2024 36 Pt seen in [...] a reminder for OPTIONAL repeat imaging. Normal [facility] XR WRIST MINIMUM 3 VIEWS [facility] 08-11-2024 XR WRIST MINIMUM 3 VIEWS RIGHT [...] 08/11/2024 3:52:26 PM Ordering Provider: DARREN CRONIN [facility] Culture, Blood (WB)on 2023 CUB Blood cultures x2 fr om two different sites No growth in 5 days. Normal [facility] Comment on above: Performed By: #### M 200.1000 #### [facility] [address] [place], [address] CBC W/Diff, Automatedon 05-09 PATH REV Reviewed Normal [facility] Comment on above: Result Comment: Neut rophilic left shift. Thrombocytosis. Clinical correlation necessary. Casimiro Wynn M.D. 06/02/24 AMENDED REPORT 06/02/24 1410 PATH REV previously reported as: January foll Performed By: #### L 100.0100 #### [facility] [address] [place], [address] PATH REV Reviewed Normal [facility] Comment on above: Result Comment: Neut rophilic leukocytosis. Normocytic anemia. Thrombocytosis. Clinical correlation necessary. Casimiro Wynn M.D. 06/02/24 AMENDED REPORT 06/02/24 1407 PATH REV previously reported as: January foll Performed By: #### L 100.0100, L500.2500 ####[facility] [address] [place], [address] Basic Metabolic Profile (BMP )on 06-01-2024 BUN/CRE 24.5 RATIO High 10-20 [facility] Comment on above: Performed By: #### L 100.0100, L500.2500 ####[facility] [address] [place], [address] CA,Total 8.7 mg/dL Normal 8.5-10.1 [facility] Comment on above: Performed By: #### L 100.0100, L500.2500 ####[facility] [address] [place], [address] Chloride [Moles/Vol] 109 mmol/L High 98-107 [facility] Comment on above: Performed By: #### L 100.0100, L500.2500 ####[facility] [address] [place], [address] CO2 [Moles/Vol] 26.0 mmol/L Normal 21.0-32.0 [facility] Comment on above: Performed By: #### L 100.0100, L500.2500 ####[facility] [address] [place], [address] Creatinine [Mass/Vol] 0.70 mg/dL Normal 0.70-1.30 [facility] Comment on above: Result Comment: The validity of the calculated GFR GFRAA in patients over 70 years has not been determined. Clinical correlation is essential. Performed By: #### L 100.0100, L500.2500 ####[facility] [address] [place], [address] ECRCL 166.93 ml/min Normal [facility] Comment on above: Performed By: #### L 100.0100, L500.2500 ####[facility] [address] [place], [address] EST GFR - AA 184 mL/min Normal >60 [facility] Comment on above: Result Comment: Afri can Mauritanian GFR Calc Performed By: #### L 100.0100, L500.2500 ####[facility] [address] [place], [address] GAP 5 Normal 5-15 [facility] Comment on above: Performed By: #### L 100.0100, L500.2500 ####[facility] [address] [place], [address] GFR/1.73 sq M.predicted among non-blacks MDRD (S/P/Bld) [Vol rate/Area] 152 mL/min/{1.73_m2} Normal >60 [facility] Comment on above: Result Comment: Non- GFR Calc Performed By: #### L 100.0100, L500.2500 ####[facility] [address] [place], [address] Glucose [Mass/Vol] 114 mg/dL High 74-106 [facility] Comment on above: Result Comment: Fast ing Glucose result from 100 to 125 mg/dL suggests IMPAIRED HOMEOSTASIS per A.D.A. criteria. Performed By: #### L 100.0100, L500.2500 ####[facility] [address] [place], [address] Potassium [Moles/Vol] 4.3 mmol/L Normal 3.5-5.1 [facility] Comment on above: Performed By: #### L 100.0100, L500.2500 ####[facility] [address] [place], [address] Sodium [Moles/Vol] 140 mmol/L Normal 136-145 [facility] Comment on above: Performed By: #### L 100.0100, L500.2500 ####[facility] [address] [place], [address] Urea nitrogen [Mass/Vol] 17 mg/dL Normal 7-18 [facility] Comment on above: Performed By: #### L 100.0100, L500.2500 ####[facility] [address] [place], [address] Culture, Throaton 06-01-2024 CUT Normal throat mary isolated. No beta-hemolytic streptococcus isolated. Normal [facility] Comment on above: Performed By: #### M 100.1000 ####[facility] [address] [place], [address] Soft Tissue Neck WITH Contra ston 06-01-2024 Soft Tissue Neck WITH Contrast [facility] Imaging Services [address] [place], [place] [address] Soft Tissue Neck WITH Contrast MR#: [id number] Acct: [id number] Name: JESSICA BARR Rep #: [id number] : 2005 M 19 From: Servando addison MD PCP: Care Physician,No Primary Status: ADM IN Study: Soft Tissue Neck WITH Contrast Date of Exam: 0 06/01/24 Exam# [id number] Ordering Dr: Yuriy Dign [place] [id number] STUDY: CT SOFT TISSUE NECK WITH CONTRAST [...] FINDINGS: Normal bilateral parotid glands. Normal bilateral logging shovel operator spaces. Normal bilateral parapharyngeal spaces. Normal bilateral [...] 8:30 EDT Reading Location ID and State: [facility] / [place] , Service support , CC: Dr. Yuriy Ding MD; No Primary Care Physician Package Checker: Signed Normal [facility] Basic Metabolic Profile (BMP )on 05-31-2024 BUN/CRE 19.6 RATIO Normal 10-20 [facility] Comment on above: Performed By: #### L 500.2500, L100.0100 ####[facility] [address] [place], [address] CA,Total 9.1 mg/dL Normal 8.5-10.1 [facility] Comment on above: Performed By: #### L 500.2500, L100.0100 ####[facility] [address] [place], [address] Chloride [Moles/Vol] 105 mmol/L Normal 98-107 [facility] Comment on above: Performed By: #### L 500.2500, L100.0100 ####[facility] [address] [place], [address] CO2 [Moles/Vol] 25.0 mmol/L Normal 21.0-32.0 [facility] Comment on above: Performed By: #### L 500.2500, L100.0100 ####[facility] [address] [place], [address] Creatinine [Mass/Vol] 0.61 mg/dL Low 0.70-1.30 [facility] Comment on above: Result Comment: The validity of the calculated GFR GFRAA in patients over 70 years has not been determined. Clinical correlation is essential. Performed By: #### L 500.2500, L100.0100 ####[facility] [address] [place], [address] ECRCL 191.56 ml/min Normal [facility] Comment on above: Performed By: #### L 500.2500, L100.0100 ####[facility] [address] [place], [address] EST GFR - AA 213 mL/min Normal >60 [facility] Comment on above: Result Comment: Afri can Mauritanian GFR Calc Performed By: #### L 500.2500, L100.0100 ####[facility] [address] [place], [address] GAP 5 Normal 5-15 [facility] Comment on above: Performed By: #### L 500.2500, L100.0100 ####[facility] [address] [place], [address] GFR/1.73 sq M.predicted among non-blacks MDRD (S/P/Bld) [Vol rate/Area] 176 mL/min/{1.73_m2} Normal >60 [facility] Comment on above: Result Comment: Non- GFR Calc Performed By: #### L 500.2500, L100.0100 ####[facility] [address] [place], [address] Glucose [Mass/Vol] 151 mg/dL High 74-106 [facility] Comment on above: Result Comment: Fast ing Glucose result greater than or equal to 126 mg/dL suggests DIABETES MELLITUS per A.D.A. criteria. Performed By: #### L 500.2500, L100.0100 ####[facility] [address] [place], [address] Potassium [Moles/Vol] 4.2 mmol/L Normal 3.5-5.1 [facility] Comment on above: Performed By: #### L 500.2500, L100.0100 ####[facility] [address] [place], [address] Sodium [Moles/Vol] 135 mmol/L Low 136-145 [facility] Comment on above: Performed By: #### L 500.2500, L100.0100 ####[facility] [address] [place], [address] Urea nitrogen [Mass/Vol] 12 mg/dL Normal 7-18 [facility] Comment on above: Performed By: #### L 500.2500, L100.0100 ####[facility] [address] [place], [address] CBC W/Diff, Automatedon - SMEAR COMMENT SCANNED Normal [facility] Comment on above: Result Comment: NEUT ROPHILLIA PRESENT Performed By: #### L 500.2500, L100.0100 ####[facility] [address] [place], [address] Basic Metabolic Profile (BMP )on 05-30-2024 BUN/CRE 17.7 RATIO Normal 10-20 [facility] Comment on above: Performed By: #### L 500.2500, L100.0100, L500.3400 ####[facility] [address] [place], [address] CA,Total 9.6 mg/dL Normal 8.5-10.1 [facility] Comment on above: Performed By: #### L 500.2500, L100.0100, L500.3400 ####[facility] [address] [place], [address] Chloride [Moles/Vol] 104 mmol/L Normal 98-107 [facility] Comment on above: Performed By: #### L 500.2500, L100.0100, L500.3400 ####[facility] [address] [place], [address] CO2 [Moles/Vol] 27.0 mmol/L Normal 21.0-32.0 [facility] Comment on above: Performed By: #### L 500.2500, L100.0100, L500.3400 ####[facility] [address] [place], [address] Creatinine [Mass/Vol] 0.74 mg/dL Normal 0.70-1.30 [facility] Comment on above: Result Comment: The validity of the calculated GFR GFRAA in patients over 70 years has not been determined. Clinical correlation is essential. Performed By: #### L 500.2500, L100.0100, L500.3400 ####[facility] [address] [place], [address] ECRCL 157.91 ml/min Normal [facility] Comment on above: Performed By: #### L 500.2500, L100.0100, L500.3400 ####[facility] [address] [place], [address] EST GFR - AA 173 mL/min Normal >60 [facility] Comment on above: Result Comment: Afri can Mauritanian GFR Calc Performed By: #### L 500.2500, L100.0100, L500.3400 ####[facility] [address] [place], [address] GAP 7 Normal 5-15 [facility] Comment on above: Performed By: #### L 500.2500, L100.0100, L500.3400 ####[facility] [address] [place], [address] GFR/1.73 sq M.predicted among non-blacks MDRD (S/P/Bld) [Vol rate/Area] 143 mL/min/{1.73_m2} Normal >60 [facility] Comment on above: Result Comment: Non- GFR Calc Performed By: #### L 500.2500, L100.0100, L500.3400 ####[facility] [address] [place], [address] Glucose [Mass/Vol] 122 mg/dL High 74-106 [facility] Comment on above: Result Comment: Fast ing Glucose result from 100 to 125 mg/dL suggests IMPAIRED HOMEOSTASIS per A.D.A. criteria. Performed By: #### L 500.2500, L100.0100, L500.3400 ####[facility] [address] [place], [address] Potassium [Moles/Vol] 4.2 mmol/L Normal 3.5-5.1 [facility] Comment on above: Performed By: #### L 500.2500, L100.0100, L500.3400 ####[facility] [address] [place], [address] Sodium [Moles/Vol] 138 mmol/L Normal 136-145 [facility] Comment on above: Performed By: #### L 500.2500, L100.0100, L500.3400 ####[facility] [address] [place], [address] Urea nitrogen [Mass/Vol] 13 mg/dL Normal 7-18 [facility] Comment on above: Performed By: #### L 500.2500, L100.0100, L500.3400 ####[facility] [address] [place], [address] CBC W/Diff, Automatedon 05-09 SMEAR COMMENT COMMENT Normal [facility] Comment on above: Result Comment: NEUT ROPHILIA. Performed By: #### L 500.2500, L100.0100, L500.3400 ####[facility] [address] [place], [address] Emergency Department Summary on 05-30-2024 Emergency Department Summary [facility] Medical Records Department [address] [place] [address] Emergency Department Summary 05/30/24 MR#: [id number] Acct: [id number] Name: JESSICA BARR Rep #: [id number] : 2005 19 From: Gerhard Maldonado DO [...] CT o (more content not included)... Normal [facility] H AND P Exam - Hospitaliston 05-30-2024 H&P Exam - Hospitalist [facility] Medical Records Department [address] [place] [address] H P Exam - Hospitalist 05/30/24 1724 MR#: [id number] Acct: [id number] Name: JESSICA BARR Irina Rep #: [id number] : 2005 19 From: Felecia Roland MD PCP: Care Physician,No Primary Status:ADM IN Location: ICU ICU10-1 HPI - General General Date of Admission: 05/30/24 Date of Service: 05/30/24 Chief Complaint: Right sided neck pain and swelling HPI Narrative JESSICA BARR, is a 19 M with history of tobacco use presented to [facility] ED with right neck pain and [...] 90.2 H, Lymph % (Auto) 3.9 L, [place]pin % (Auto) 4.5, Eos % (Auto) 0.0, [...] L, Alkali (more content not included)... Normal [facility] Liver Profileon 05-30-2024 Albumin [Mass/Vol] 3.5 g/dL Normal 3.2-5.0 [facility] Comment on above: Performed By: #### L 500.2500, L100.0100, L500.3400 ####[facility] [address] [place], [place], [address] ALK P 94 U/L Normal 45-117 [facility] Comment on above: Performed By: #### L 500.2500, L100.0100, L500.3400 ####[facility] [address] [place], [address] ALT [Catalytic activity/Vol] 15 U/L Low 16-61 [facility] Comment on above: Performed By: #### L 500.2500, L100.0100, L500.3400 ####[facility] [address] [place], [address] AST [Catalytic activity/Vol] 9 U/L Low 15-37 [facility] Comment on above: Performed By: #### L 500.2500, L100.0100, L500.3400 ####[facility] [address] [place], [address] Bilirubin [Mass/Vol] 0.50 mg/dL Normal 0.20-1.00 [facility] Comment on above: Result Comment: For patients on eltrombopag therapy, use of Dimension [place] TBIL is not recommended. Performed By: #### L 500.2500, L100.0100, L500.3400 ####[facility] [address] [place], [address] Bilirubin.direct [Mass/Vol] 0.17 mg/dL Normal 0.00-0.30 [facility] Comment on above: Performed By: #### L 500.2500, L100.0100, L500.3400 ####[facility] [address] [place], [address] Globulin (S) [Mass/Vol] 4.4 g/dL High 2.2-4.2 [facility] Comment on above: Performed By: #### L 500.2500, L100.0100, L500.3400 ####[facility] [address] [place], [address] T PROT 7.9 g/dL Normal 6.4-8.2 [facility] Comment on above: Performed By: #### L 500.2500, L100.0100, L500.3400 ####[facility] [address] [place], [address] Operative Reporton Operative Report [facility] Medical Records Department [address] [place] [address] Operative Report 05/30/24 1531 MR#: [id number] Acct: [id number] Name: JESSICA BARR Rep #: [id number] : 2005 19 From: Yuriy Ding MD [...] MD; No Primary Care Physician Signed Normal [facility] Soft Tissue Neck WITH Contra ston 05-30-2024 Soft Tissue Neck WITH Contrast [facility] Imaging Services [address] [place] [address] Soft Tissue Neck WITH Contrast MR#: [id number] Acct: [id number] Name: JESSICA BARR Rep #: [id number] : 2005 M 19 From: Servando addison MD PCP: Care Physician,No Primary Status: REG ER Study: Soft Tissue Neck WITH Contrast Date of Exam: 0 05/30/24 Exam# [id number] Ordering Dr: Gerhard Maldonado DO [id number] STUDY: CT SOFT TISSUE NECK WITH CONTRAST [...] FINDINGS: Normal bilateral parotid glands. Normal bilateral logging shovel operator spaces. Normal bilateral parapharyngeal spaces. Normal bilateral [...] Gerhard Maldonado DO; No Primary Care Physician Package Checker: Signed Normal [facility] Emergency Department Summary on 05-27-2024 Emergency Department Summary [facility] Medical Records Department [address] [place] [address] Emergency Department Summary 05/27/24 MR#: [id number] Acct: [id number] Name: JESSICA BARR Rep #: [id number] : 2005 19 From: Jacques Paul MD [...] guarding Back/Spine (more content not included)... Normal [facility] CBC W/Diff, Automatedon 05-08 PATH REV Reviewed Normal [facility] Comment on above: Result Comment: Neut rophilic leukocytosis. Clinical correlation necessary. Casimiro Wynn M.D. 05/26/24 AMENDED REPORT 05/26/24 1506 PATH REV previously reported as: January Performed By: #### L 700.5500, L100.0100 #### [facility] [address] [place], [address] Emergency Department Summary on 05-25-2024 Emergency Department Summary [facility] Medical Records Department [address] [place] [address] Emergency Department Summary 05/25/24 MR#: [id number] Acct: [id number] Name: JESSICA BARR Rep #: [id number] : 2005 19 From: Lupillo Alvarado MD [...] either. M (more content not included)... Normal [facility] Monoteston 05-25-2024 Monocytes (Bld) [#/Vol] Positive Abnormal Negative W [facility] Comment on above: Performed By: #### L 700.5500, L100.0100 #### [facility] [address] [place], [place], [address] Neck for Soft Tissueon 05-25 Neck for Soft Tissue [facility] Imaging Services [address] [place], [place] [address] Neck for Soft Tissue MR#: [id number] Acct: [id number] Name: JESSICA BARR Rep #: [id number] : 2005 M 19 From: Servando addison MD PCP: Care Physician,No Primary Status: REG ER Study: Neck for Soft Tissue Date of Exam: 05/25/24 Exam# [id number] Ordering Dr: Lupillo Alvarado [place] [id number] STUDY: X-RAY - SOFT TISSUE NECK REASON [...] Lupillo Alvarado MD; No Primary Care Physician Package Checker: Signed Normal [facility] CNOVon 05-13-2024 CNOV Office Visit (UCWSTR ) JESSICA BARR ([id number]) 1 M Date Time Provider Department 05/13/24 12:15 PM IVONNE COOPER [facility] During your visit today, we recorded the following information about you: Temperature Pulse Respiration Blood pressure 99 degrees 111/minute 20/minute 115/76 Weight 79 kg Ivonne Cooper APRN.BROADCAST CHECKER 05/13/2024 12:37 PM Signed Subjective Fever Associated [...] Maternal Grandmother Coronary Artery Disease Maternal Grandfather [place] Coronary Artery Disease Paternal Grandfather [place] Breast Cancer Other Social History Tobacco Use [...] care wit (more content not included)... [facility] COVID AND INFLUENZA A/B AND RSV PCR, ROUTINEon 05-13-2024 SARS-CoV-2 (COVID-19) RNA TRAY+probe Ql (Unsp spec) SARS-COV-2 (AGENT OF COVID-19) RNA: Not detected INFLUENZA A RNA: Not detected INFLUENZA B RNA: Not detected RESPIRATORY SYNCYTIAL VIRUS (RSV) RNA: Not detected [facility] Comment on above: Performed By: #### C VFLRS ####[facility] LABCLIA [id number] [address] [place] STREP A MOLECULAR (POC)on Procedural Control Valid [facility] Strep A (POCT) Negative Negative [facility] CNOVon 04-26-2024 CNOV Office Visit (UCWSTR ) JESSICA BARR ([id number]) 1 M Date Time Provider Department 04/26/24 2:15 PM LUL BROWN [facility] During your visit today, we recorded the following information about you: Temperature Pulse Respiration Blood pressure 98.5 degrees 85/minute 20/minute 129/89 Weight 78 kg Lul Brown, [employer].BROADCAST CHECKER 04/26/2024 2:14 PM Signed Subjective HPI Nontoxic-appearing [...] Maternal Grandmother Coronary Artery Disease Maternal Grandfather [place] Coronary Artery Disease Paternal Grandfather [place] Breast Cancer Other Social History Tobacco Use [...] for discharge (more content not included)... [facility] CNOVon 03-18-2024 CNOV Office Visit (UCWSTR ) JESSICA BARR ([id number]) 1 M Date Time Provider Department 03/18/24 1:15 PM LAVERNE ZAMBRANO [facility] During your visit today, we recorded the [...] Maternal Grandmother Coronary Artery Disease Maternal Grandfather [place] Coronary Artery Disease Paternal Grandfather [place] Breast Cancer Other Social History Tobacco Use [...] HENT: Head: Normocephalic and atraumatic. Mouth/Throat: Lips: Carrier. Mouth: Mucous membranes are moist. Pharynx: Uvula [...] - STREP A MOLECULAR (POC) Laverne Zambrano APRN.BROADCAST CHECKER Allergies As of Date: 03/18/2024 (No Known Allergies) Date Reviewed: 03/18/2024 Reviewed by: Kimberly Jackson - Fully Assessed Reason for Visit: Sore Throat [200] Cmt: Cough x2 mths Primary Visit Diagnosis:Subacute cough [R05.2] Other Visit Diagnosis:Sore throat [J02.9] Order(s):STREP A MOLECULAR (POC) [5859512] Order #: [id number]. #:[id number] XR CHEST 2V FRONTAL/LAT [5302362] Order #: [id number]. #:[id number] predniSONE (DELTASONE) 20 mg tabletTake 2 tablets [...] Status:Closed by LAVERNE ZAMBRANO on 03/18/24 [facility] STREP A MOLECULAR (POC)on Procedural Control Valid [facility] Strep A (POCT) Negative Negative [facility] XR CHEST 2V FRONTAL/LATon XR CHEST [...] tissues: Unremarkable. IMPRESSION: No acute radiographic abnormality. Package Checker: ISAAC Transcribe Date/Time: Mar 18 2024 1:26P Dictated by : ISELA GARCÍA MD This examination was interpreted and the report reviewed and electronically signed by: ISELA GARCÍA MD on Mar 18 2024 1:26PM EST [id number] [facility] XR Chest PA and Lateralon IMPRESSION: No acute radiographic abnormality. Package Checker: PSCQue Transcribe Date/Time: Mar 18 2024 1:26P [...] soft tissues: Unremarkable. DIVISION OF RADIOLOGY Provider, [facility] - 03/18/2024 * * *Final [...] Unremarkable. IMPRESSION IMPRESSION: No acute radiographic abnormality. Package Checker: ISAAC Transcribe Date/Time: Mar 18 2024 1:26P Dictated by : ISELA GARCÍA MD This examination was interpreted and the report reviewed and electronically signed by: ISELA GARCÍA MD on Mar 18 2024 1:26PM [facility] Radiology Study observation (narrative) Helen Altamirano XR Chest PA and LateralOrder ed By: Cc Provider on 03-18-2024 [facility] CNOVon 03-03-2024 CNOV Office Visit (INTMWS ) JESSICA BARR ([id number]) 1 M Date Time Provider Department 03/03/24 [...] Prakash Zhao MD Referring Provider: PRAKASH ZHAO [[id number]] Allergies As of Date: 03/03/2024 (No Known Allergies) Date Reviewed: 03/03/2024 Reviewed by: Myrna Vick LPN - Fully Assessed Reason for Visit: Discussion [813] Primary Visit Diagnosis:Tobacco use disorder [F17.200] Other Visit Diagnosis:History of heavy alcohol consumption [Z87.898] Order(s):buPROPion XL (WELLBUTRIN XL) 150 mg 24 hr tabletTake 1 tablet by mouth once daily.Disp: 30 tabletRfl: 0 BEHAVIORAL HEALTH SCREENING [3968714] Order #: [id number]: 1 Prescriptions as of 03/03/2024 - buPROPion [...] for Encounter Date Provider Department Center 03/03/2024 89238-XCLQOPJEDPRAKASH ZHAO INTMWS [facility] [place] Encounter Status:Closed by PRAKASH ZHAO on 6/27/24 [facility] 02-29-2024 CNOV Office Visit (UCWSTR ) JESSICA BARR ([id number]) 1 M Date Time Provider Department 02/29/24 [...] PM Signed This note was created using [employer]. Subjective Jessica Barr is a 18 year [...] Maternal Grandmother Coronary Artery Disease Maternal Grandfather [place] Coronary Artery Disease Paternal Grandfather [place] Breast Cancer Other Social History Tobacco Use [...] Diagnosis:Viral illness [B34.9] Order(s):STREP A MOLECULAR (POC) [[id number]] Order #: [id number]. #:[id number] Prescriptions as of 02/29/2024 - miconazole (LOTRIMIN [...] Status:Closed by MIRIAM WATSON on 02/29/24 [facility] STREP A MOLECULAR (POC)on Procedural Control Valid [facility] Strep A (POCT) Negative Negative [facility] CNOVon 01-29-2024 CNOV Office Visit (UCWSTR ) JESSICA BARR ([id number]) 1 M Date Time Provider Department 01/29/24 8:30 AM IVONNE COOPER [facility] During your visit today, we recorded the following information about you: Temperature Pulse Respiration Blood pressure 98 degrees 75/minute 18/minute 149/64 Weight 77.8 kg Ivonne Cooper APRN.BROADCAST CHECKER 01/29/2024 8:48 AM Signed ASSESSMENT/PLAN: 1. Tinea [...] Discussed expected course of illness Ivonne Cooper APRN.BROADCAST CHECKER TINEA PEDIS (ATHLETESFOOT): Your exam shows you [...] when possible. To treat ahtlete?s foot, use [id number]-[id number] medicated foot powder or cream such as [...] after one week of treatment. Ivonne Cooper APRN.BROADCAST CHECKER 01/29/2024 8:56 AM Signed Subjective Pain (foot) [...] Maternal Grandmother Coronary Artery Disease Maternal Grandfather [place] Coronary Artery Disease Paternal Grandfather [place] Breast Cancer Other Social History Tobacco Use [...] Discussed expected course of illness Ivonne Cooper APRN.BROADCAST CHECKER Allergies As of D (more content not included)... [facility] .Auto Diffon 03-11-2023 Basophil, Absolute 0.0 10 3/mcL Normal 0.0-0.2 [facility] ([place]) Comment on above: Performed By: #### C MP, CBC, GFR, ANEU, ADIFF, LIP, MDW #### [address] [address] Basophils/100 WBC (Bld) 0.7 % Normal 0.0-2.5 A [facility] ([place]) Comment on above: Performed By: #### C MP, CBC, GFR, ANEU, ADIFF, LIP, W #### [address] [address] Eosinophil, Absolute 0.2 10 3/mcL Normal 0.0-0.4 [facility] ([place]) Comment on above: Performed By: #### C MP, CBC, GFR, ANEU, ADIFF, LIP, MDW #### [address] [address] Eosinophils/100 WBC (Bld) 3.9 % Normal 0.0-7.0 [facility] ([place]) Comment on above: Performed By: #### C MP, CBC, GFR, ANEU, ADIFF, LIP, LEANNE #### [address] [address] Lymphocyte, Absolute 1.1 10 3/mcL Normal 0.8-3.9 [facility] ([place]) Comment on above: Performed By: #### C MP, CBC, GFR, ANEU, ADIFF, LEANNE WAGNER #### [address] [address] Lymphocytes/100 WBC (Bld) 18.7 % Normal 10.0-50.0 [facility] ([place] Comment on above: Performed By: #### C MP, CBC, GFR, ANEU, ADIFF, KRISTY, LEANNE #### [address] [address] Monocyte, Absolute 0.8 10 3/mcL Normal 0.2-1.0 [facility] ([place]) Comment on above: Performed By: #### C MP, CBC, GFR, ANEU, ADIFF, LIP, LEANNE #### [address] [address] Monocytes/100 WBC (Bld) 14.2 % High 1.7-13.0 A [facility] ([place]) Comment on above: Performed By: #### C MP, CBC, GFR, ANEU, ADKRISTY MERRILL MDW #### [address] [address] Neutrophils/100 WBC (Bld) 62.5 % Normal 37.0-80.0 [facility] ([place] Comment on above: Performed By: #### C MP, CBC, GFR, ANEU, ADKRISTY MERRILL MDW #### [address] [address] .GFRon 03-11-2023 GFR 145 ml/min/1.73sqm Normal [facility] ([place]) Comment on above: Result Comment: GFR [...] CBC, GFR, ANEU, ADIFF, LEANNE WAGNER #### [address] [address] GFR Non- 119 ml/min/1.73sqm Normal [facility] ([place]) Comment on above: Result Comment: GFR [...] CBC, GFR, ANEU, ADIFF, LEANNE WAGNER #### [place] [address] .MDWon 03-11-2023 Monocyte Distribution Width 18.08 Normal 0.00-20.00 [facility] ([place]) Comment on above: Result Comment: For ED adult patients suspected of sepsis, MDW<=20.0 does not rule out sepsis or risk of sepsis Performed By: #### C MP, CBC, GFR, ANEU, ADIFF, LIPLEANNE #### [place] [address] .NEUABSon 03-11-2023 Neutrophil, Absolute 3.5 10 3/mcL Normal 2.9-6.2 [facility] ([place]) Comment on above: Performed By: #### C MP, CBC, GFR, ANEU, ADIFF, LEANNE WAGNER #### [place] [address] CBCon 03-11-2023 Erythrocyte distribution width (RBC) [Ratio] 13.0 % Normal 11.5-14.5 [facility] ([place] Comment on above: Performed By: #### C MP, CBC, GFR, ANEU, ADIFF, KRISTY, LEANNE #### [place] [address] Hematocrit (Bld) [Volume fraction] 42.1 % Normal 42.0-52.0 [facility] ([place] Comment on above: Performed By: #### C MP, CBC, GFR, ANEU, ADIFF, KRISTY, LEANNE #### [place] [address] Hgb 14.4 G/dL Normal 14.0-18.0 [facility] ([place] Comment on above: Performed By: #### C MP, CBC, GFR, ANEU, ADIFF, LIP, W #### [place] [address] MCH (RBC) [Entitic mass] 29.3 pg Normal 27.0-31.2 [facility] ([place] Comment on above: Performed By: #### C MP, CBC, GFR, ANEU, ADKRISTY MERRILL MDW #### [address] [address] MCHC 34.2 G/dL Normal 31.8-35.4 [facility] ([place] Comment on above: Performed By: #### C MP, CBC, GFR, ANEU, ADIFF, LEANNE WAGNER #### [address] [address] MCV (RBC) [Entitic vol] 85.7 fL Normal 80.0-94.0 A [facility] ([place]) Comment on above: Performed By: #### C MP, CBC, GFR, ANEU, ADIFF, LEANNE WAGNER #### [address] [address] Platelet 322 10 3/mcL Normal 130-400 [facility] ([place]) Comment on above: Performed By: #### C MP, CBC, GFR, ANEU, ADIFF, LEANNE WAGNER #### [address] [address] Platelet mean volume (Bld) [Entitic vol] 7.3 fL Low 7.4-10.4 [facility] ([place] Comment on above: Performed By: #### C MP, CBC, GFR, ANEU, ADIFF, LEANNE WAGNER #### [address] [address] RBC 4.92 10 6/mcL Normal 4.04-6.13 [facility] ([place]) Comment on above: Performed By: #### C MP, CBC, GFR, ANEU, ADGARFIELD, LEANNE WAGNER #### [address] [address] WBC 5.6 10 3/mcL Normal 4.6-10.8 [facility] ([place] Comment on above: Performed By: #### C MP, CBC, GFR, ANEU, ADIFF, LEANNE WAGNER #### [address] [address] CMPon 03-11-2023 Albumin Level 4.2 G/dL Normal 3.5-5.0 [facility] ([place] Comment on above: Performed By: #### C MP, CBC, GFR, ANEU, ADIFF, KRISTY, LEANNE #### [address] [address] Albumin/Globulin [Mass ratio] 1.6 {ratio} Normal 1.1-2.5 [facility] ([place] Comment on above: Performed By: #### C MP, CBC, GFR, ANEU, ADIFF, KRISTY, LEANNE #### [address] [address] ALP [Catalytic activity/Vol] 91 U/L Normal 40-135 [facility] ([place] Comment on above: Performed By: #### C MP, CBC, GFR, ANEU, ADIFF, LEANNE WAGNER #### [address] [address] ALT [Catalytic activity/Vol] 23 U/L Normal 16-63 [facility] ([place] Comment on above: Performed By: #### C MP, CBC, GFR, ANEU, ADIFF, LEANNE WAGNER #### [address] [address] AST [Catalytic activity/Vol] 17 U/L Normal 10-40 [facility] ([place] Comment on above: Performed By: #### C MP, CBC, GFR, ANEU, ADIFF, LEANNE WAGNER #### [address] [address] Bili Total 0.6 mg/dL Normal 0.2-1.0 [facility] ([place]) Comment on above: Result Comment: Use of this assay is not recommended for patients undergoing treatment with eltrombopag due to the potential for falsely elevated results. Performed By: #### C MP, CBC, GFR, ANEU, ADIFF, KRISTY, LEANNE #### [address] [address] BUN/Creatinine Ratio 13 ratio Normal 7-27 [facility] ([place]) Comment on above: Performed By: #### C MP, CBC, GFR, ANEU, ADIFF, KRISTY, W #### [address] [address] Calcium [Mass/Vol] 9.3 mg/dL Normal 8.4-10.2 [facility] ([place]) Comment on above: Performed By: #### C MP, CBC, GFR, ANEU, ADIFF, LIP, MDW #### [address] [address] Chloride [Moles/Vol] 104 mmol/L Normal 98-107 [facility] ([place] Comment on above: Performed By: #### C MP, CBC, GFR, ANEU, ADIFF, KRISTY, W #### [address] [address] CO2 [Moles/Vol] 26 mmol/L Normal 22-29 [facility] ([place] Comment on above: Performed By: #### C MP, CBC, GFR, ANEU, ADIFF, LIP, MDW #### [address] [address] Creatinine [Mass/Vol] 0.83 mg/dL Normal 0.70-1.30 [facility] ([place]) Comment on above: Performed By: #### C MP, CBC, GFR, ANEU, ADIFF, LIP, MDW #### [address] [address] Electrolyte Balance 10.0 mEq/L Normal 4.0-15.0 [facility] ([place]) Comment on above: Performed By: #### C MP, CBC, GFR, ANEU, ADIFF, LIP, MDW #### [address] [address] Globulin 2.6 G/dL Normal [facility] ([place] Comment on above: Performed By: #### C MP, CBC, GFR, ANEU, ADIFF, LIP, MDW #### [address] [address] Glucose [Mass/Vol] 84 mg/dL Normal 70-105 [facility] ([place] Comment on above: Performed By: #### C MP, CBC, GFR, ANEU, ADIFF, LEANNE WAGNER #### [address] [address] Potassium [Moles/Vol] 4.1 mmol/L Normal 3.5-5.1 [facility] ([place]) Comment on above: Performed By: #### C MP, CBC, GFR, ANEU, ADIFF, LEANNE WAGNER #### [address] [address] Sodium [Moles/Vol] 140 mmol/L Normal 136-145 [facility] ([place] Comment on above: Performed By: #### C MP, CBC, GFR, ANEU, ADIFF, LEANNE WAGNER #### [address] [address] Total Protein 6.8 G/dL Normal 6.4-8.2 [facility]) Comment on above: Performed By: #### C MP, CBC, GFR, ANEU, ADIFF, LEANNE WAGNER #### [address] [address] Urea nitrogen [Mass/Vol] 11 mg/dL Normal 7-18 [facility]) Comment on above: Performed By: #### C MP, CBC, GFR, ANEU, ADIFF, LEANNE WAGNER #### [address] [address] LABORATORYOrdered By: SYSTEM SYSTEM on 03-11-2023 Albumin [...] 03-11-2023 Lipase Level 25 U/L Normal 16-77 [facility] ([place] Comment on above: Performed By: #### C MP, CBC, GFR, ANEU, ADIFF, LIP, MDW #### [address] [address] [id number] 12-22-2022 SARS-CoV-2 (COVID-19) RNA TRAY+probe Ql (Unsp spec) Negative Normal Negative [facility] ([place]) Comment on above: Performed By: #### C OVD19, FLURSV #### [address] [address] SARS-CoV-2 (COVID-19) RNA TRAY+probe Ql (Unsp spec) Normal [facility] ([place]) Comment on above: Result Comment: Nega [...] Performed By: #### C OVD19, FLURSV #### [address] [address] DIMERon 12-22-2022 D-Dimer <200 Normal 0-230 [facility] ([place]) Comment on above: Result Comment: The [...] Performed By: #### D BROOKS ####[address] [place], [place] [address] FLURSVon 12-22-2022 Flu A PCR (AO) Negative Normal Negative [facility] ([place]) Comment on above: Result Comment: Posi [...] REPEAT COLLECTION AND TESTING IS RECOMMENDED. The [employer] Flu A/B & RSV Assay is a real-time polymerase chain reaction (PCR) based qualitative in vitro diagnostic test for the direct detection and differentiation of influenza A virus, influenza B virus, and respiratory syncytial virus (RSV) nucleic acid in nasopharyngeal swab (SENIOR TRAINER) specimens from patients with signs and symptoms of respiratory infection in conjunction with clinical and laboratory findings. The test is intended for use as an aid in the differential diagnosis of influenza A virus, influenza B virus, and RSV in humans and is not intended to detect influenza C. Performed By: #### C OVD19, FLURSV ####[address] [place], [place] [address] Flu B PCR (AO) Negative Normal Negative [facility] ([place]) Comment on above: Result Comment: Posi [...] (RSV) nucleic acid in nasopharyngeal swab (SENIOR TRAINER) specimens from patients with signs and symptoms of respiratory infection in conjunction with clinical and laboratory findings. The test is intended for use as an aid in the differential diagnosis of influenza A virus, influenza B virus, and RSV in humans and is not intended to detect influenza C. Performed By: #### C OVD19, FLURSV ####[address] [place], [place] [address] RSV PCR (AO) Negative Normal Negative [facility] ([place]) Comment on above: Result Comment: Posi [...] (RSV) nucleic acid in nasopharyngeal swab (SENIOR TRAINER) specimens from patients with signs and symptoms of respiratory infection in conjunction with clinical and laboratory findings. The test is intended for use as an aid in the differential diagnosis of influenza A virus, influenza B virus, and RSV in humans and is not intended to detect influenza C. Performed By: #### C OVD19, FLURSV ####[address] [place], [place] [address] LABORATORYOrdered By: Catherine Bernal on 12-22-2022 Fibrin [...] Date: 12/22/2022 2:43:59 PM Ordering Provider: MANGO [facility] ([place]) CR Forearm 2 Views Righton 1 CR Forearm 2 Views Right Patient Name: JESSICA BARR Diagnostic Radiology ACCESSION EXAM DATE/TIME PROCEDURE ORDERING PROVIDER [id number] 07/01/2022 23:56 EDT CR Forearm 2 Views Right [id number] ERVIN CPT code 32492 Reason For Exam (CR Forearm 2 Views [...] Transcribed Date and Time: 07/02/2022 0:47 Normal [facility] XR RADIUS ULNA RIGHT (2 VIEW S)on 07-02-2022 Patient Name: JESSICA BARR Diagnostic Radiology ACCESSION EXAM DATE/TIME PROCEDURE ORDERING PROVIDER [id number] 07/01/2022 23:56 EDT CR Forearm 2 Views Right [id number] CAZARES CPT code 75640 Reason For Exam (CR Forearm 2 Views [...] Date and Time: 07/02/2022 0:47 [facility] Israel Crews MD - 07/02/2022 [id number] Diagnostic Radiology ACCESSION EXAM DATE/TIME PROCEDURE ORDERING PROVIDER [id number] 07/01/2022 23:56 EDT CR Forearm 2 Views Right [id number] -BKPAULAJOYBERTlEina CPT code 53227 Reason For Exam (CR Forearm 2 Views [...] presents with Arm Injury PT FELL INTO [place] TODAY AND GOT CAST WET. PT HAD BROKEN R ARM W/ WOUND 2X WEEKS AGO. Patient seen independently with an Emergency Medicine attending available for supervision. HISTORY OF PRESENT ILLNESS (Location/Symptom, Timing/Onset,Context/S etting, Quality, Duration, Modifying Factors, Severity) Note limiting factors. HPI Jessica Barr is a 17 y.o. male who presents to the emergency department [place]. Patient states that he did [...] use: Yes Drug use: Yes Types: Marijuana ([place]) SCREENINGS PHYSICAL EXAM (up to 7 [...] EXAM DATE/GAEL (more content not included)... Normal [facility] XR RADIUS ULNA RIGHT (2 VIEW S)on 07-01-2022 Radiology Study observation (narrative) [facility] Work Phone: CBC with Auto Differentialon 06-21-2022 Hematocrit (Bld) [Volume fraction] 39.0 % Low 40 - 52 % [facility] Hemoglobin (Bld) [Mass/Vol] 13.4 g/dL 13 - 18 g/dL [facility] Interpretation and review of laboratory results Abnormal [facility] (RBC) [Entitic mass] 29.2 pg 26 - 34 pg [facility] MCHC (RBC) [Mass/Vol] 34.2 % 32 - 36 % [facility] MCV (RBC) [Entitic vol] 85.4 fL 80 - 98 fL [facility] Platelet distribution width (Bld) [Ratio] 13.9 % 11.5 - 14.5 % [facility] Platelet mean volume (Bld) [Entitic vol] 7.6 fL 7.4 - 12.4 fL [facility] Comment on above: MPV is a calculated measurement using platelet volume ratio. Platelets (Bld) [#/Vol] 259 10*3/uL 140 - 440 10*3/uL [facility] RBC (Bld) [#/Vol] 4.57 10*6/uL 4.4 - 5.9 10*6/uL [facility] WBC (Bld) [#/Vol] 11.6 10*3/uL High 3.6 - 10.7 10*3/uL [facility] Test Performed by [address] [address] [facility] COVID-19, Flu A/B, and RSV C omboon 06-21-2022 Influenza A by PCR Not detected [facility] Influenza B by PCR Not detected [facility] RSV PCR Not Detected. Expected Result: Not Detected _ Method: Real-time, RT-PCR This assay was developed by [employer] and distributed under an Emergency Use Authorization (EUA) granted by the FDA for the qualitative detection of nucleic acids from SARS-CoV-2, Influenza A, Influenza B, and Respiratory Syncytial Virus. Provider and patient fact sheets can be found at https://www.[facility].gov/sd handy/745345/download and https://www.fda.gov/sd handy/321754/download. [facility] SARS-CoV-2 (COVID-19) RNA TRAY+probe Ql (Unsp spec) Not detected [facility] Test Performed by [address] [address] [facility] Chest Portableon 06-21-20 22 CR Chest Portable Patient Name: JESSICA BARR Diagnostic Radiology ACCESSION EXAM DATE/TIME PROCEDURE ORDERING PROVIDER [id number] 06/21/2022 18:58 EDT CR Chest Portable NATY[facility] CPT code 80916 Reason For Exam (CR Chest Portable) weakness, [...] Transcribed Date and Time: 06/21/2022 6:35 Normal [facility] Comp Metabolic Panelon 06-21 ALP [Catalytic activity/Vol] 71 U/L Normal 38-126 [facility] Comment on above: Performed By: #### H KRISTA ADRIAN MDIFF #### [facility] [address] [place], [place] ALT [Catalytic activity/Vol] 34 U/L Normal 0-49 [facility] Comment on above: Result Comment: The ALT test is performed by an updated assay method. Please note that the reference intervals have been changed and are now sex specific. Performed By: #### H KRISTA ADRIAN MDIFF #### [facility] [address], [place] AST [Catalytic activity/Vol] 41 U/L Normal 15-46 [facility] Comment on above: Performed By: #### KRISTA SERRANO MDIFF #### [facility] [address], [place] Calcium [Mass/Vol] 9.5 mg/dL Normal 8.4-10.4 [facility] Comment on above: Performed By: #### KRISTA SERRANO MDIFF #### [facility] [address], [place] Glucose [Mass/Vol] 102 mg/dL High 70-100 [facility] Comment on above: Performed By: #### KRISTA SERRANO MDIFF #### [facility] [address], [place] Protein [Mass/Vol] 7.4 g/dL Normal 6.3-8.2 [facility] Comment on above: Performed By: #### KRISTA SERRANO MDIFF #### [facility] [address], [place] Urea nitrogen [Mass/Vol] 10 mg/dL Normal 7-17 [facility] Comment on above: Performed By: #### H KRISTA ADRIAN MDIFF #### [facility] [address], [place] Anion gap [Moles/Vol] 8 mmol/L Normal 3-13 [facility] Comment on above: Performed By: #### H KRISTA ADRIAN MDIFF #### [facility] [address], [place] Bilirubin [Mass/Vol] 0.6 mg/dL Normal 0.2-1.3 [facility] Comment on above: Performed By: #### H KRISTA ADRIAN MDIFF #### [facility] [address], [place] CO2 [Moles/Vol] 25 mmol/L Normal 22-30 [facility] Comment on above: Performed By: #### H KRISTA ADRIAN MDIFF #### [facility] [address], [place] Creatinine [Mass/Vol] 0.62 mg/dL Normal 0.52-1.25 [facility] Comment on above: Performed By: #### H KRISTA ADRIAN MDIFF #### [facility] [address], [place] eGFR OTHER > 90.0 Normal >60 [facility] Comment on above: Result Comment: KDIG [...] By: #### H KRISTA ADRIAN MDIFF #### [place] [address] [address] [place], [place] GFR/1.73 sq M.predicted among blacks MDRD (S/P/Bld) [Vol rate/Area] mL/min/{1.73_m2} Normal >60 [facility] Comment on above: Performed By: #### H KRISTA ADRIAN MDIFF #### [place] [address] [address] [place], [place] Albumin [Mass/Vol] 4.2 g/dL Normal 3.5-5.0 [facility] Comment on above: Performed By: #### H KRISTA ADRIAN MDIFF #### [address] Chloride [Moles/Vol] 104 mmol/L Normal 98-107 [facility] Comment on above: Performed By: #### H KRISTA ADRIAN MDIFF #### [place] [address] [address] [place], [place] Potassium [Moles/Vol] 4.2 mmol/L Normal 3.5-5.1 [facility] Comment on above: Performed By: #### H KRISTA ADRIAN MDIFF #### [place] [address] [address] [place], [place] Sodium [Moles/Vol] 136 mmol/L Normal 135-145 [facility] Comment on above: Performed By: #### H KRISTA ADRIAN MDIFF #### [place] [address] [place] [address] Comprehensive Metabolic Pane jayla 06-21-2022 Albumin [Mass/Vol] 4.2 g/dL 3.5 - 5 g/dL [facility] ALP (Bld) [Catalytic activity/Vol] 71 U/L 38 - 126 U/L [facility] ALT [Catalytic activity/Vol] 34 U/L 0 - 49 U/L [facility] Comment on above: The ALT test [...] P INF mL/min [facility] EGFR IF NonAfrican Mauritanian mL/min 60 - PINF mL/min [facility] Comment [...] - 17 mg/dL [facility] Test Performed by [employer] [facility], [address] [place] [id number] [facility] ED Provider Noteon ED Provider Note Emergency Department Encounter [facility] EMERGENCY DEPT Patient: Jessica Barr : [...] for ACS or PE. IMarian, am the software applications specialist of record. I did perform a substantive [...] are mis-transcribed.) Irina Guerra MD [facility] Irina Guerra MD 06/21/22 2309 Normal [facility] ED Provider Note Emergency Department Encounter [facility] EMERGENCY DEPT Patient: Jessica Barr : [...] as my SAMMY Supervisory note as the software applications specialist of record and shared attestation. I did [...] for clarification KAM ALFONSO MD [facility] Kam Alfonso MD 06/21/22 9452 [facility] ED Provider Note [facility] EMERGENCY DEPT EMERGENCY DEPARTMENT ENCOUNTER Pt [...] patient come from an ECF, SNF, Rehab, Half-Way or other Congregate setting: No (If yes [...] use: Yes Drug use: Yes Types: Marijuana ([place]) SCREENINGS Katie Coma Scale Eye Opening: Spontaneous Best Verbal Response: Oriented Best Motor Response: Obeys commands [place] Coma Scale Score: 15 PHYSICAL EXAM (up [...] Refill: Ca (more content not included)... Normal [facility] Hemogram w/ [employer]od[employer]on 06-21 Erythrocyte distribution width (RBC) [Ratio] 13.9 % Normal 11.5-14.5 [facility] Comment on above: Performed By: #### H KRISTA ADRIAN MDIFF #### [place] [address] [address] [place], [place] Hematocrit (Bld) [Volume fraction] 39.0 % Low 40.0-52.0 [facility] Comment on above: Performed By: #### H KRISTA ADRIAN MDIFF #### [place] [address] [place], [place] Hemoglobin (Bld) [Mass/Vol] 13.4 g/dL Normal 13.0-18.0 [facility] Comment on above: Performed By: #### H KRISTA ADRIAN MDIFF #### [address] MCH (RBC) [Entitic mass] 29.2 pg Normal 26.0-34.0 [facility] Comment on above: Performed By: #### H KRISTA ADRIAN MDIFF #### [address] MCHC 34.2 % Normal 32.0-36.0 [facility] Comment on above: Performed By: #### H KRISTA ADRIAN MDIFF #### [address] MCV (RBC) [Entitic vol] 85.4 fL Normal 80.0-98.0 [facility] Comment on above: Performed By: #### H KRISTA ADRIAN MDIFF #### [place] [address] [place], [place] Platelet mean volume (Bld) [Entitic vol] 7.6 fL Normal 7.4-12.4 [facility] Comment on above: Result Comment: MPV is a calculated measurement using platelet volume ratio. Performed By: #### H KRISTA ADRIAN MDIFF #### [address] Platelets (Bld) [#/Vol] 259 10*3/uL Normal 140-440 [facility] Comment on above: Performed By: #### H KRISTA ADRIAN MDIFF #### [facility] [address], [place] RBC (Bld) [#/Vol] 4.57 10*6/uL Normal 4.40-5.90 [facility] Comment on above: Performed By: #### H KRISTA ADRIAN MDIFF #### [place] [address] [address] [place], [place] WBC (Bld) [#/Vol] 11.6 10*3/uL High 3.6-10.7 [facility] Comment on above: Performed By: #### H KRISTA ADRIAN MDIFF #### [place] [address] [address] [place], [place] Manual Diffon 06-21-2022 Abs Lymph Cnt 1.2 10*3/uL Normal 1.1-4.5 [facility] Comment on above: Performed By: #### H EMDF, PT, ETOH4, BMP3 #### [address] [address] [place], [place] Abs Monocyte Cnt 1.5 10*3/uL High 0.2-1.1 [facility] Comment on above: Performed By: #### H EMDF, PT, ETOH4, BMP3 #### [address] [place], [place] Abs Neutrophile Cnt 8.9 10*3/uL High 2.2-8.2 [facility] Comment on above: Performed By: #### H EMDF, PT, ETOH4, BMP3 #### [address] [place], [place] Bands 4 % High 0-3 [facility] Comment on above: Performed By: #### H EMDF, PT, ETOH4, BMP3 #### [address] [place], [place] Lymphocytes 10 % Low 20-40 [facility] Comment on above: Performed By: #### H EMDF, PT, ETOH4, BMP3 #### [address] [address] [place], [place] Monocytes 13 % High 2-10 [facility] Comment on above: Performed By: #### H EMDF, PT, ETOH4, BMP3 #### [facility] [address] [place], [place] RBC Morphology Normal Normal [facility] Comment on above: Performed By: #### H EMDF, PT, ETOH4, BMP3 #### [address] [address] [address] [place], [place] Seg Neutrophils 73 % Normal 40-80 [facility] Comment on above: Performed By: #### H EMDF, PT, ETOH4, BMP3 #### [address] [place], [place] Toxic Vacuoles Slight Normal [facility] Comment on above: Performed By: #### H EMDF, PT, ETOH4, BMP3 #### [address] [place], [place] Abs Baso Cnt 0.0 10*3/uL Normal 0.0-0.2 [facility] Comment on above: Performed By: #### H EMDF, PT, ETOH4, BMP3 #### [address] [place], [place] Abs Eosin Cnt 0.0 10*3/uL Normal 0.0-0.5 [facility] Comment on above: Performed By: #### H EMDF, PT, ETOH4, BMP3 #### [address] [place] Basophils 0 % Normal 0-2 [facility] Comment on above: Performed By: #### H EMDF, PT, ETOH4, BMP3 #### [address] [place], [place] Cells counted 100 Normal [facility] Comment on above: Performed By: #### H EMDF, PT, ETOH4, BMP3 #### [address] [place] Eosinophils 0 % Low 1-6 [facility] Comment on above: Performed By: #### H EMDF, PT, ETOH4, BMP3 #### [facility] [address] [address] Manual Differentialon 2021 Absolute Baso # 0.0 10*3/uL 0 - 0.2 10*3/uL [facility] Absolute Eos # 0.0 10*3/uL 0 - 0.5 10*3/uL [facility] Absolute Lymph # 1.2 10*3/uL 1.1 - 4.5 10*3/uL [facility] Absolute [place] # 1.5 10*3/uL High 0.2 - 1.1 [...] TOXIC VACUOLES Slight [facility] Test Performed by [address] LAB [facility] SARS-CoV-2, Flu A/B and RSVo n 06-21-2022 SARS-CoV-2 (COVID-19) RNA TRAY+probe Ql (Unsp spec) SARS-CoV-2 --> Status: F Not Detected. Flu A PCR --> Status: F Not Detected. Flu B PCR --> Status: F Not Detected. RSV PCR --> Status: F Not Detected. Expected Result: Not Detected _ Method: Real-time, RT-PCR This assay was developed by [employer] and distributed under an Emergency Use Authorization (EUA) granted by the FDA for the qualitative detection of nucleic acids from SARS-CoV-2, Influenza A, Influenza B, and Respiratory Syncytial Virus. Provider and patient fact sheets can be found at https://www.fda.gov/me handy/807856/download and https://www.fda.gov/me handy/518365/download. Expected Result: Not Detected _ Method: Real-time, RT-PCR This assay was developed by [employer] and distributed under an Emergency Use Authorization (EUA) granted by the FDA for the qualitative detection of nucleic acids from SARS-CoV-2, Influenza A, Influenza B, and Respiratory Syncytial Virus. Provider and patient fact sheets can be found at https://www.[facility].gov/sd handy/335154/download and https://www.fda.gov/sd handy/995621/download. Normal [facility] Comment on above: Performed By: #### H EMDF, PT, ETOH4, BMP3 #### [facility] [address] [place] [address] XR CHEST PORTABLEon 06-21-20 Patient Name: JESSICA BARR Diagnostic Radiology ACCESSION EXAM DATE/TIME PROCEDURE ORDERING PROVIDER [id number] 06/21/2022 18:58 EDT CR Chest Portable KAM ALFONSO CPT code 07343 Reason For Exam (CR Chest Portable) weakness, [...] NEIL Transcribed Date and Time: 06/21/2022 6:35 [facility] Nash Hernandez MD - 06/21/2022 Patient Name: JESSICA BARR Diagnostic Radiology ACCESSION EXAM DATE/TIME PROCEDURE ORDERING PROVIDER [id number] 06/21/2022 18:58 EDT CR Chest Portable KAM ALFONSO CPT code 82129 Reason For Exam (CR Chest Portable) weakness, [...] NEIL Transcribed Date and Time: 06/21/2022 6:35 [facility] Work Phone: Radiology Study observation (narrative) [facility] Work Phone: XR CHEST PORTABLEOrdered By: Nash Peña on 06-21-2022 [facility] Work Phone: Basic Metabolic Panelon 06-07 Anion gap [Moles/Vol] 6 mmol/L Normal 3-13 [facility] Comment on above: Performed By: #### H SELMA ADRIAN MDIFF #### [facility] [address] [place] [address] Calcium [Mass/Vol] 9.0 mg/dL Normal 8.4-10.4 [facility] Comment on above: Performed By: #### H SELMA ADRIAN MDIFF #### [facility] [address] [place] [address] CO2 [Moles/Vol] 23 mmol/L Normal 22-30 [facility] Comment on above: Performed By: #### H SELMA ADRIAN MDIFF #### [facility] [address] [place], [place] Glucose [Mass/Vol] 141 mg/dL High 70-100 [facility] Comment on above: Performed By: #### H SELMA ADRIAN MDIFF #### [facility] [address] [place], [place] Urea nitrogen [Mass/Vol] 15 mg/dL Normal 7-17 [facility] Comment on above: Performed By: #### H SELMA ADRIAN MDIFF #### [address] [address] [place], [place] Creatinine [Mass/Vol] 0.79 mg/dL Normal 0.52-1.25 [facility] Comment on above: Performed By: #### H SELMA ADRIAN MDIFF #### [address] eGFR OTHER > 90.0 Normal >60 [facility] Comment on above: Result Comment: KDIG [...] By: #### H SELMA ADRIAN MDIFF #### [facility] [address] [place], [place] GFR/1.73 sq M.predicted among blacks MDRD (S/P/Bld) [Vol rate/Area] mL/min/{1.73_m2} Normal >60 [facility] Comment on above: Performed By: #### H SELMA ADRIAN MDIFF #### [facility] [address] [place], [place] Potassium [Moles/Vol] 3.9 mmol/L Normal 3.5-5.1 [facility] Comment on above: Performed By: #### H SELMA ADRIAN MDIFF #### [facility] [address] [place], [place] Sodium [Moles/Vol] 134 mmol/L Low 135-145 [facility] Comment on above: Performed By: #### H SELMA ADRIAN MDIFF #### [facility] [address] [place], [place] Chloride [Moles/Vol] 105 mmol/L Normal 98-107 [facility] Comment on above: Performed By: #### H SELMA ADRIAN MDIFF #### [facility] [address] [place], [place] Basic Metabolic Panel w/ Ref francisca to MGon 06-18-2022 Anion gap [Moles/Vol] 6 mmol/L 3 - 13 mmol/L [facility] Calcium [Mass/Vol] 9.0 mg/dL 8.4 - 10. 4 mg/dL [facility] Chloride [Moles/Vol] 105 mmol/L 98 - 10 7 mmol/L [facility] CO2 [Moles/Vol] 23 mmol/L 22 - 30 mmol/L [facility] Creatinine [Mass/Vol] 0.79 mg/dL 0.52 - 1.25 mg/dL [facility] eGFR mL/min 60 - P INF mL/min [facility] EGFR IF NonAfrican Mauritanian mL/min 60 - PINF mL/min [facility] Comment on above: KDIGO guidelines pro [...] - 17 mg/dL [facility] Test Performed by [address] [employer] [place], [place] [id number] [place] [address] LAB [facility] CBC with Auto Differentialon 06-18-2022 Hematocrit (Bld) [Volume fraction] 37.7 % Low 40 - 52 % [facility] Hemoglobin (Bld) [Mass/Vol] 12.6 g/dL Low 13 - 18 g/dL [facility] Interpretation and review of laboratory results Abnormal [facility] MCH (RBC) [Entitic mass] 29.0 pg 26 - 34 pg [facility] MCHC (RBC) [Mass/Vol] 33.4 % 32 - 36 % [facility] MCV (RBC) [Entitic vol] 87.0 fL 80 - 98 fL [facility] Platelet distribution width (Bld) [Ratio] 13.9 % 11.5 - 14.5 % [facility] Platelet mean volume (Bld) [Entitic vol] 8.0 fL 7.4 - 12.4 fL [facility] Comment on above: MPV is a calculated measurement using platelet volume ratio. Platelets (Bld) [#/Vol] 295 10*3/uL 140 - 440 10*3/uL [facility] RBC (Bld) [#/Vol] 4.33 10*6/uL Low 4.4 - 5.9 10*6/uL [facility] WBC (Bld) [#/Vol] 19.8 10*3/uL High 3.6 - 10.7 10*3/uL [facility] Test Performed by [address] [address] [place] [address] [facility] Hem[facility] w/ Autodiffon 06-18 Erythrocyte distribution width (RBC) [Ratio] 13.9 % Normal 11.5-14.5 [facility] Comment on above: Performed By: #### SELMA SERRANO MDIFF #### [address]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 [id number] 2003 Unknown [id number] [id number] 1974 Unknown [id number] [id number] 1974 Unknown [id number] [id number] Unknown Unknown [id number] [id number] Unknown [id number] 2.16840.1.195064.3.579.2.462 Unknown [id number] [id number] Unknown [id number] [id number] Unknown [id number] [id number] Unknown [id number] [id number] Unknown [id number] [id number] Unknown [id number] [id number] Unknown [id number] [id number] Unknown [id number] [id number] Social History Date Type Detail Facility Start: 12-17-2016 End: 01-29-2024 Tobacco smoking status NHIS Never smoked tobacco [facility] Work Phone: Start: 12-17-2016 End: 04-26-2024 Tobacco use and exposure Smokeless tobacco non-user [facility] Work Phone: Start: 01-30-2022 End: 01-29-2024 Alcohol intake Current non-drinker of alcohol (finding) [facility] Start: 2003 Sex Assigned At Not on file [facility] Start: 01-20-2022 End: 07-02-2022 Exposure to SARS-CoV-2 (event) Not sure [facility] Start: 01-31-2022 End: 06-21-2022 History SDOH Alcohol Frequency 1 [facility] Sex Assigned At [facility] Start: 06-17-2022 End: 02-07-2025 Alcohol intake Current drinker of alcohol (finding) [facility] Work Phone: Start: 06-17-2022 History SDOH Alcohol Frequency 2 [facility] Work Phone: Start: 12-22-2022 Tobacco smoking status Light tobacco smoker (finding) [facility] Start: 01-31-2022 End: 02-08-2025 History of Social function [facility] Work Phone: Start: 01-31-2022 End: 02-08-2025 Alcohol Use Disorder Identification Test - Consumption [AUDIT-C] [facility] Work Phone: How often to you hav e a drink containing alcohol? Never [facility] Work Phone: Average Number of Drinks Not on file [facility] Start: 03-03-2024 End: 03-05-2025 Tobacco smoking status NHIS Smokes tobacco daily [facility] Start: 2016 History of tobacco use Cigarette Smoker [facility] How often to you hav e a drink containing alcohol? 2-4 times a month [facility] How many standard dr inks containing alcohol do you have on a typical day? 10 or more [facility] How often do you hav e 6 or more drinks on 1 occasion? Monthly [facility] Start: 03-03-2024 Alcohol Comment 12 pack every other weekend [facility] Start: 08-12-2022 Tobacco Comment 3-4 cigarettes a day [facility] Start: 08-12-2022 Alcohol Comment 1 a week [facility] Start: 11-19-2015 End: 07-02-2022 Sex Male (finding) [facility] Start: 2003 Sex Assigned At Male [facility] Functional Status Date Assessment Result Facility 03-11-2023 Functional Status Up ad trev [facility] 03-11-2023 Functional Status Standard Safet y ID band on, Call device within reach, Bed in low position, Wheels locked, Bedside Cart Locked, Safety level maintained [facility] 12-22-2022 Functional Status Up ad trev [facility] 12-22-2022 Functional Status Standard Safet y ID band on, Call device within reach, Bed in low position, Wheels locked [facility] 06-16-2022 Functional Status Standard Safet y ID band on, Call device within reach, Bed in low position, Wheels locked, Upper/Half-Length side-rails up, Bedside Cart Locked, Visitor at bedside, Safety level maintained [facility] 04-17-2022 Functional Status Up ad trev [facility] Mental Status Date Assessment Result Facility 03-11-2023 Mental Status Orientation Oriented x 4 [facility] 03-11-2023 Mental Status [facility] 12-22-2022 Mental Status Orientation Oriented x 4 [facility] 12-22-2022 Mental Status [facility] 06-16-2022 Mental Status Orientation Oriented x 4 [facility] 04-17-2022 Mental Status Oriented x 4 [facility] Clinical Notes 04-29-2021 to 03-05-2025 Note Date & Type Note Facility 03-05-2025 Radiology Diagnostic study note [facility] Imaging Services [address] [place] [address] Testicular with Arterial Flow MR#: [id number] Acct: [id number] Name: JESSICA BARR Rep #: [id number] : 2005 M 19 From: Jaci Obrien MD PCP: ALEJANDRO Brown Status: RE G ER Study:Testicular with Arterial Flow Date of E xam: 03/05/25 Exam# [id number] Ordering Dr: Batsheva Markham ADDENDUM by Dr. Mauricio Obrien MD on 03/05/[address] Pisano was notified by Mauricio Obrien at 5:21 pm EST on 03/05/2025. Reading Location: [id number] 03/05/25 1724 Date cc: ALEJANDRO Mosher; KOFI [...] Small hydrocele within the right. Reading Location: [facility] CC: ALEJANDRO Mosher; KOFI Amato ~ Package Checker: Signed [facility] 03-04-2025 Hospital Discharg e instructions Additional [...] MiraLAX or Dulcolax while using this medicine. [facility] Work Phone: 03-04-2025 Discharge summary [facility] 03-04-2025 Radiology Diagnostic study note [facility] Imaging Services [address] [place] [address] Testicular with Arterial Flow MR#: [id number] Acct: [id number] Name: JESSICA BARR Rep #: [id number] : 2005 M 19 From: Jaci Obrien MD PCP: ALEJANDRO Brown Status: RE G ER Study:Testicular with Arterial Flow Date of E xam: 03/04/25 Exam# [id number] Ordering Dr: Luciano Pisano DO PROCEDURE: TESTICULAR [...] testicular torsion. Small right-sided hydrocele. Reading Location: [id number] CC: ELECTRONICS ENGINEERING TECHNOLOGISTWilliam Mosher; Dr. Kobe Pisano DO ~ Package Checker: Signed [facility] 03-04-2025 Discharge summary Note Date/Time March 04, 2025 3:26pm [facility] Medical Records Department [address] [place] [address] Emergency Department Summary 03/04/25 MR#: [id number] Acct: [id number] Name: JESSICA BARR Rep #:[id number] : 2005 19 From: Kobe Pisano DO [...] follow commands knew that he was at [facility] year is 2024 Skin: Warm, dry, tact [...] 73.9 H Lymph % (Auto) 13.7 L [place] % (Auto) 9.8 Eos % (Auto) 1.7 [...] Clarity Clear Urine pH 8.0 Ur Specific [place] 1.015 Urine Protein 15 H Urine Glucose [...] testicular torsion. Small right-sided hydrocele. Reading Location: [facility] Discharge Plan Triage Chief Complaint: Male Pain/Injury ED Provider: Kobe Pisano Dx/Rx/DC Orders Clinical Impression: Pain in right testicle, Mass of right testicle Prescriptions: No Action sertraline [Zoloft] 25 mg tablet 25 mg PO QHS Qty: 30 0RF Primary Care Provider: Mitali Mosher NP Referrals: Mitali Mosher NP, ELECTRONICS ENGINEERING TECHNOLOGIST-C [Primary Care Provider] - Feliz Van MD [...] can also follow-up with [facility] in [place] number is [phone]. Rotate Tylenol and ibuprofen [id number] for pain control when you do this you can take something every 3 hours max dose of Tylenol in 24 hours 4000 mg maxdose of ibuprofen in 24 hours 3200 mg. Print Language: Tunisian Disposition Disposition: Home, Self Care What to do if you have Problems For any increased pain, shortness of breath, bleeding, nausea or vomiting, chestpain, or any unexpected problems, contact your Primary Care Provider. Call [facility] ([phone]) or report to the closest Emergency Room. Call 911 if necessary. 03/04/25 1526 <Electronically signed by Kobe Pisano DO> Cosigner Signature (if applicable): CC: ALEJANDRO Mosher ~ Signed [facility] Work Phone: 1(621) 184-147206-28-2025 Hospital Discharge instructionsAdditional Instructions You need to call Dr. Van office immediately Thursday morning as there is a high concern that you have testicular cancer as there is a mass in your right testicle. If they are unable to see you secondary to insurance reasons or any other reason you need to follow-up with a another urologist immediately. You can also follow-up with [facility] in [place] number is [phone]. Rotate Tylenol and ibuprofen mtlzkf-uqu-kogmf for pain control when you do this you can take something every 3 hours max dose of Tylenol in 24 hours 4000 mg max dose of ibuprofen in 24 hours 3200 mg.[facility] Work Phone: 1(486) 260-330806-19-2025 Hospital Discharge instructions Patient Education 02/23/2025 05:59:15 [...] wound Decreased movement around the injured area [phone] [employer]. [address] [place] [address]. All rights reserved. This information is not intended as a substitute for professional medical care. Always follow yourhealthcare professional's instructions. Follow Up Care 02/23/2025 05:50:31 With:MITALI MOSHER APRN-BROADCAST CHECKER Address: [address] [place] [address] Physicians [place], [place] [phone]- [phone] When:2-4 days [facility] 06-19-2025 Note Discharge Instructions Thank you for allowing [facility] to assist you with your healthcare needs. [...] Up with MITALI MOSHER When:Within 2-4 days Where:[facility] [place] [address]- [phone] Allergies NKA Medications Please ask your primary [...] wound Decreased movement around the injured area [phone] [employer]. [address] [place] [address], [place] [address]. All rights reserved. This information is not intended as a substitute for professional medical care. Always follow yourhealthcare professional's instructions. Additional Information VACCINATE! IT SAVES LIVES! Members of the community who have not yet received the COVID-19 vaccine and would like to receive it can visit one of [facility] vaccine clinics. There are many vaccine clinic locations within the [facility]. For locations and available times, please visit www.[email or web address].[place].gov/. It is important to note that some COVID mobile vaccine clinics are held outdoors and may be canceled in rainy or stormy conditions. To learn more about pediatric vaccinations (ages 5-11), we invite you to visit the [facility] webpage. https://www.[facility].org/pages/3891-Azdkr-Kyybegwwpyv-Ebnkfgluyc-Pmzhy-Eji stions.htmlTo learn more about the COVID-19 vaccine, we invite you to visit the CDC website for a list of frequently asked questions. https://www.cdc.gov/coronavirus/2019-ncov/vaccines/faq.html [facility] Patient Portal Access Instructions: Stay connected with your healthcare team and access your personal medical information anytime with the [facility] Patient Portal. If you would like a full copy of your medical records please contact the [facility] Medical Records Department Thursday through Thursday between 8a.m. and 4:30p.m. Please follow the directions below to access the portal: 1.Access the email account you provided upon registration to the hospital.2.Look for an invitation email from [facility].3.Open the email and access the invitation link: Accept Invitation to [facility]4.Fill in the required momin to create your account. Sign into www.[email or web address] with your username and password that you [...] you will allow to register on the [facility] Patient Portal for access to your information. You can also access the [facility] Patient Portal on the [employer] sammy. Simply click on Health Records under lensgen and then click on the Norah logo. [...] Call your local pharmacy or go to [email or web address] to find one close to you.3.Make use of household items: Use cat litter or old coffee grounds to dispose medications if other options arenot available. Mix your drugs with these household products, seal them in an airtight container andthrow it into the garbage. Call [facility]: [phone] to be sure your drugs can be [...] aware that I should contact my doctor. 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 Signature: Date/Time: Relationship to Patient: Witness Name/Signature: Date/Time: [facility]06-09-2025 Telephone encounter Note* Telephone Encounter - Aura Mendosa - 02/13/2025 2:07 PM EDT Left message to schedule appointment [facility]06-09-2025 Miscellaneous Notes* Telephone Encounter - Aura [...] which facility was the patient seen at: [facility] bath Was an appointment scheduled (Y/N): N Person calling if other than patient: N Return call to if other than patient: N Best contact number: [phone] Thank you, Mario Kay February 08, 2025 10:20 AM [facility] Hospital Discharge instructions Patient Education 02/08/2025 [...] bent back when typing. You may use hmzi-eyo-zxzayor pain medicine to treat pain and inflammation, [...] Your whole arm becomes swollen or weak [phone] [employer]. [address] [place] [address]. All rights reserved. This information is not intended as a substitute for professional medical care. Always follow yourhealthcare professional's instructions. Follow Up Care 02/08/2025 16:26:34 With:LUL CHICAS DO [facility] Address: [address] [facility] [place] [address]- [phone] When:2-4 days With:AMILCAR CASON DO, Orthopedic Address: [address] [place] [place] [address] [phone] When:2-4 days With:ROSEMARIE ZIMMERMAN DO, Orthopedic Address: [address] [facility], [place] [address]- [phone] When:2-4 days With:JUSTO FLORES DO, Orthopedic Address: [address] [place] [address], [address] [place] [address] [phone] When:2-4 days [facility] 06-04-2025 Note Discharge Instructions Thank you for [...] and Sports Medicine When:Within 2-4 days Where:[address] [facility] [place] [address] [phone] Follow Up with AMILCAR CASON DO, Orthopedic When:Within 2-4 days Where:[address] [facility], [place] [address]- [phone] Follow Up with ROSEMARIE ZIMMERMAN DO, Orthopedic When:Within 2-4 days Where:[address] [facility], [place] [address] [phone] Follow Up with JUSTO FLORES DO, Orthopedic When:Within 2-4 days Where:[address] [place] [address]- [phone] Allergies NKA Medications Please ask your primary [...] are a day sleeper or work a manufacturing supervisor 2nd shift; or kidney disease (or if you are [...] may report side effects to FDA at 2-084-WPT-3438. What other drugs will affect gabapentin? Taking [...] may affect gabapentin. This includes prescription and kkjq-utm-twgwabv medicines, vitamins, and herbal products. Not all [...] to ensure that the information provided by [employer]. ('Multum') is accurate, up-to-date, and complete, but no guarantee is made to that effect. Drug information contained herein may be time sensitive. S[employer]Any[employer] information has been compiled for use by healthcare practitioners and consumers in the [place] and therefore [employer] does not warrant that uses outside of the [place] are appropriate, unless specifically indicated otherwise. [employer]'s drug information does not endorse drugs, diagnose patients or recommend therapy. VetClouds drug information isan informational resource designed to [...] effective or appropriate for any given patient. [employer] does not assume any responsibility for any aspect of healthcare administered with the aid of information [employer] provides. The information contained herein is not intended to cover all possible uses, directions, precautions, warnings, drug interactions, allergic reactions, or adverse effects. If you have questions about the drugs you are taking, check with your doctor, nurse or pharmacist. Copyright 0494-4857 [employer]. Version: 18.01. Revision Date: 03/09/2023. methylprednisolone (oral) [...] expected to produce life threatening symptoms. However, shelter use of high steroid doses can lead [...] may report side effects to FDA at 7-031-GXP-4977. What other drugs will affect methylprednisolone? Other drugs may interact with methylprednisolone, including prescription and lnyy-jyf-ljvwhhu medicines, vitamins, and herbal products. Tell each [...] to ensure that the information provided by [employer]. ('[employer]') is accurate, up-to-date, and complete, but no guarantee is made to that effect. Drug information contained herein may be time sensitive. [employer] information has been compiled for use by healthcare practitioners and consumers in the [place] and therefore [employer] does not warrant that uses outside of the [place] are appropriate, unless specifically indicated otherwise. Vet[employer] drug information does not endorse drugs, diagnose patients or recommend therapy. Vet[employer]ouds drug information isan informational resource designed to [...] effective or appropriate for any given patient. [employer] does not assume any responsibility for any aspect of healthcare administered with the aid of information [employer] provides. The information contained herein is not intended to cover all possible uses, directions, precautions, warnings, drug interactions, allergic reactions, or adverse effects. If you have questions about the drugs you are taking, check with your doctor, nurse or pharmacist. Copyright 8798-3898 [employer]. Version: 9.01. Revision Date: 05/06/2017. Education Materials [...] bent back when typing. You may use mazh-pql-vlvtadb pain medicine to treat pain and inflammation, [...] Your whole arm becomes swollen or weak 3405-5209 [employer]. [address] [place] [address]. All rights reserved. This information is not intended as a substitute for professional medical care. Always follow yourhealthcare professional's instructions. Additional Information VACCINATE! IT SAVES LIVES! Members of the community who have not yet received the COVID-19 vaccine and would like to receive it can visit one of [facility] vaccine clinics. There are many vaccine clinic locations within the [facility]. For locations and available times, please visit www.gettheshot.coronavirus.[place].gov/. It is important to note that some COVID mobile vaccine clinics are held outdoors and may be canceled in rainy or stormy conditions. To learn more about pediatric vaccinations (ages 5-11), we invite you to visit the [facility] webpage. https://www.[facility].org/pages/8941-Anqwd-Ucfwcavnrty-Gkgqptxvzi-Dqgoa-Vbm stions.htmlTo learn more about the COVID-19 vaccine, we invite you to visit the CDC website for a list of frequently asked questions. https://www.cdc.gov/coronavirus/2019-ncov/vaccines/faq.html [facility] Patient Portal Access Instructions: Stay connected with your healthcare team and access your personal medical information anytime with the [facility] Patient Portal. If you would like a full copy of your medical records please contact the [facility] Medical Records Department Thursday through Thursday between 8a.m. and 4:30p.m. Please follow the directions below to access the portal: 1.Access the email account you provided upon registration to the [facility].2.Look for an invitation email from [facility].3.Open the email and access the invitation link: Accept Invitation to [facility]4.Fill in the required momin to create your account. Sign into [email or web address] with your username and password that you [...] you will allow to register on the [facility] Patient Portal for access to your information. You can also access the [facility] Patient Portal on the [employer] sammy. Simply click on Health Records under lensgen and then click on the Norah logo. [...] Call your local pharmacy or go to [email or web address] to find one close to you.3.Make use of household items: Use cat litter or old coffee grounds to dispose medications if other options arenot available. Mix your drugs with these household products, seal them in an airtight container andthrow it into the garbage. Call [facility]: [phone] to be sure your drugs can be [...] aware that I should contact my doctor. 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 Signature: Date/Time: Relationship to Patient: Witness Name/Signature: Date/Time: [facility]06-04-2025 Telephone encounter Note* Telephone Encounter - [place] Aura Suazo - 02/08/2025 2:23 PM EDT [...] which facility was the patient seen at: [facility] bath Was an appointment scheduled (Y/N): N Person calling if other than patient: N Return call to if other than patient: N Best contact number: [phone] Thank you, Mario Kay February 08, 2025 10:20 AM [facility]05-25-2025 Discharge summary [facility] Medical Records Department [address] [place] [address] Emergency Department Summary 01/29/25 MR#: [id number] Acct: [id number] Name: JESSICA BARR Rep #:[id number] : 2005 19 From: Lupillo Alvarado MD [...] Prior similar symptoms: No Recent Illness/Hospitalization: [facility] Medical History Depression Anxiety Home Medications [...] - Keep Omega appointment Mitali Mosher NP, ELECTRONICS ENGINEERING TECHNOLOGIST-C [Primary Care Provider] - 1-2 Weeks Activity Restrictions/Additional Instructions: 1. Your blood pressure readings are elevated. Should have this rechecked by your provider YANCY Almazan. 2. Take 1 Zoloft tablet at bedtime. 3. Make/keep appointment at counseling center Print Language: Tunisian Disposition Disposition: Home, Self Care What to do if you have Problems For any increased pain, shortness of breath, bleeding, nausea or vomiting, chestpain, or any unexpected problems, contact your Primary Care Provider. Call [facility] ([phone]) or report tothe closest Emergency Room. Call 911 if necessary. 01/29/25 0539 Cosigner Signature (if applicable): CC: ALEJANDRO Mosher ~ Signed [facility]02-11-2025 Telephone encounter Note* Telephone Encounter - [...] as a reminder for OPTIONAL repeat imaging. [id number] Miscellaneous Notes* Telephone Encounter - Fabiola Arshad [...] for OPTIONAL repeat imaging. documented in this [facility]12-05-2024 Note ORIGINAL EXAMINATION: THREE XRAY VIEWS OF [...] Sign Date: 08/11/2024 3:52:26 PM Ordering Provider: [facility]09-26-2024 Note [facility] Medical Records Department [address] [place] [address] Discharge Summary 06/02/24 1442 MR#: [id number] Acct: [id number] Name: JESSICA BARR Rep #: [id number] : 2005 19 From: Yvette Nieto DO PCP: Care Physician,No Primary Status:ADM IN [place] [id number] Providers Date of Admission: 05/30/24 Date of [...] soft to palpation and (more content not included)...[facility]09-23-2024 Note [facility] Medical Records Department [address] [place] [address] Consultation 05/30/24 1526 MR#: [id number] Acct: [id number] Name: JESSICA BARR Rep #: [id number] : 2005 19 From: Yuriy Ding MD [...] M who presents with a pharyngeal abscess. Gilpin positive, progressively worsening sore throat; placed on prednisone, no antibiotics. CT demonstrated right lateral pharyngeal abscess. Clear voice, tolerating secretions. [facility] Home Medications ???Medication ???Instructions ???Recorded ???Last [...] 90.2 H, Lymph % (Auto) 3.9 L, Gilpin % (Auto) 4.5, Eos % (Auto) 0.0, [...] (if applicable): CC: No [facility] Instructions* Patient Instructions* Ivonne Cooper APRN.BROADCAST CHECKER - 05/13/2024 12:37 PM EDT ASSESSMENT/PLAN: 1. [...] Discussed expected course of illness Ivonne Cooper APRN.BROADCAST CHECKER Treatment for Viral Upper Respiratory Tract Infections [...] fluids help open respiratory and sinus passages [place] Nasal [place] may offer relief of nasal and head [...] worse rather than better [facility]-2024 NoteHNO ID: [id number] Author: IVONNE COOPER APRN.BROADCAST CHECKER Service: ? Author Type: Nurse Practitioner Type: [...] Maternal Grandmother Coronary Artery Disease Maternal Grandfather [place] Coronary Artery Disease Paternal Grandfather [place] Breast Cancer Other Social History Tobacco Use [...] Discussed expected course of illness Ivonne Cooper APRN.[facility]09-06-2024 History of Present illness Narrative* Ivonne Cooper APRN.BROADCAST CHECKER - 05/13/2024 12:34 PM EDT Subjective Fever [...] Maternal Grandmother Coronary Artery Disease Maternal Grandfather [place] Coronary Artery Disease Paternal Grandfather [place] Breast Cancer Other Social History Tobacco Use [...] Discussed expected course of illness Ivonne Cooper APRN.BROADCAST CHECKER documented in this [facility]Way[facility]08-20-2024 NoteHNO ID: [id number] Author: LUL BROWN APRN.BENNY Service: ? Author [...] Maternal Grandmother Coronary Artery Disease Maternal Grandfather [place] Coronary Artery Disease Paternal Grandfather [place] Breast Cancer Other Social History Tobacco Use [...] of care. This note was generated using JobApp software. It may contain errors in wording, punctuation, or spelling. Lul Brown APRN.[facility]08-20-2024 History of Present illness Narrative* Lul Brown APRN.BROADCAST CHECKER - 04/26/2024 2:03 PM EDT Subjective HPI [...] Maternal Grandmother Coronary Artery Disease Maternal Grandfather [place] Coronary Artery Disease Paternal Grandfather [place] Breast Cancer Other Social History Tobacco Use [...] of care. This note was generated using JobApp software. It may contain errors in wording, punctuation, or spelling. Lul Brown APRN.BENNY documented in this [facility]Way[facility]07-12-2024 NoteHNO ID: [id number] Author: LAVERNE ZAMBRANO APRN.BENNY Service: ? Author [...] Maternal Grandmother Coronary Artery Disease Maternal Grandfather [place] Coronary Artery Disease Paternal Grandfather [place] Breast Cancer Other Social History Tobacco Use [...] HENT: Head: Normocephalic and atraumatic. Mouth/Throat: Lips: Carrier. Mouth: Mucous membranes are moist. Pharynx: Uvula [...] - STREP A MOLECULAR (POC) Laverne Zambrano APRN.[facility]07-12-2024 History of Present illness Narrative* Laverne Zambrano [...] Maternal Grandmother Coronary Artery Disease Maternal Grandfather [place] Coronary Artery Disease Paternal Grandfather [place] Breast Cancer Other Social History Tobacco Use [...] HENT: Head: Normocephalic and atraumatic. Mouth/Throat: Lips: Carrier. Mouth: Mucous membranes are moist. Pharynx: Uvula [...] - STREP A MOLECULAR (POC) Laverne Zambrano APRN.BROADCAST CHECKER documented in this encounterWayne Hospital07-12-2024 History of Present illness Narrative* John [...] PATIENT PRESENTS WITH AN IMPLANTABLE OR ATTACHED MAINFRAME SOFTWARE DEVELOPER: No RADIOLOGY DEPARTMENT: General X-ray: Exam(s) Completed: Chest X-Ray PERIPHERAL IV DATA: Not applicable SIGNED BY: RT Mary Ann([place]) March 18, 2024 1:20 PM documented in this encounterWayne Hospital07-12-2024 NoteHNO ID: [id number] Author: JOHN DAVIS RT(R) Service: Radiology Author [...] PATIENT PRESENTS WITH AN IMPLANTABLE OR ATTACHED MAINFRAME SOFTWARE DEVELOPER: No RADIOLOGY DEPARTMENT: General X-ray: Exam(s) Completed: Chest X-Ray PERIPHERAL IV DATA: Not applicable SIGNED BY: RT Mary Ann([place]) March 18, 2024 1:20 [facility]06-27-2024 NoteHNO ID: [id number] Author: PRAKASH ZHAO MD Service: ? Author Type: Physician Type: Progress Notes Filed: 03/03/2024 15:38 Note Text: This note was created using WaveConnexriter. Subjective Jessica Barr is a 18 year [...] on risks of binge consumption. Prakash Zhao, [facility]06-27-2024 History of Present illness Narrative* Prakash Zhao MD - 03/03/2024 2:48 PM EDT This note was created using WaveConnexriter. Subjective Jessica Barr is a 18 year [...] consumption. Prakash Zhao MD documented in this encounterWayne Hospital06-24-2024 NoteHNO ID: [id number] Author: MIRIAM WATSON PA-C Service: ? Author Type: Physician Preprint Analyst Type: Progress Notes Filed: 02/29/2024 12:41 Note Text: This note was created using WaveConnexriter. Subjective Jessica Barr is a 18 year [...] Maternal Grandmother Coronary Artery Disease Maternal Grandfather [place] Coronary Artery Disease Paternal Grandfather [place] Breast Cancer Other Social History Tobacco Use [...] symptoms - STREP A MOLECULAR (POC) KOFI [facility]06-24-2024 History of Present illness Narrative* [...] Maternal Grandmother Coronary Artery Disease Maternal Grandfather [place] Coronary Artery Disease Paternal Grandfather [place] Breast Cancer Other Social History Tobacco Use [...] (POC) Miriam Watson PA-C documented in this encounterWayne Hospital06-24-2024 Instructions* Patient Instructions* Miriam Watson PA-C - 02/29/2024 11:[address] Zhao follow up for smoking cessation Dayquil/Nyquil otc for cold symptoms If not better inone geraldo fajardo sen again documented in this encounterWayne Hospital05-24-2024 NoteHNO ID: [id number] Author: IVONNE COOPER APRN.BROADCAST CHECKER Service: ? Author Type: Nurse Practitioner Type: [...] Maternal Grandmother Coronary Artery Disease Maternal Grandfather [place] Coronary Artery Disease Paternal Grandfather [place] Breast Cancer Other Social History Tobacco Use [...] Discussed expected course of illness [facility] of Present illness Narrative* Ivonne Cooper APRN.BROADCAST CHECKER - 01/29/2024 8:48 AM EDT Images from [...] Maternal Grandmother Coronary Artery Disease Maternal Grandfather [place] Coronary Artery Disease Paternal Grandfather [place] Breast Cancer Other Social History Tobacco Use [...] illness Ivonne Cooper APRN.BENNY documented in this encounterWayne Hospital05-24-2024 Instructions* Patient Instructions* Ivonne Cooper APRN.CNP [...] possible. To treat ahtlete s foot, use wtrw-gwy-sfuzuon medicated foot powder or cream such as [...] one week of treatment. documented in this encounterWayne Hospital07-05-2023 Note Discharge Instructions Thank you for [...] [facility] When Within 3-5 days Where: [address] [place] [address]- Allergies NKA Medications Please ask your primary [...] cramping, and pain worse. If taking medicines: Tobo-ksh-fkukbjp nausea and diarrhea medicines are generally OK [...] with soap and water and using alcohol-based surveillance monitor is the best way to prevent the [...] Keep uncooked meats away from cooked and qebsz-gv-tft foods. Use a food thermometer when cooking. [...] or as directed by your healthcare provider [phone] [employer]. [address] [place] [address]. All rights reserved. This information is not intended as a substitute for professional medical care. Always follow yourhealthcare professional's instructions. Additional Information VACCINATE! IT SAVES LIVES! Members of the community who have not yet received the COVID-19 vaccine and would like to receive it can visit one of [facility] Center vaccine clinics. There are many vaccine clinic locations within the [facility]. For locations and available times, please visit www.[email or web address].gov/. It is important to note that some COVID mobile vaccine clinics are held outdoors and may be canceled in rainy or stormy conditions. To learn more about pediatric vaccinations (ages 5-11), we invite you to visit the [facility] webpage. https://www.[facility].org/pages/1531-Tltec-Zlbemqflrsc-Qznbpedwhv-Tmnyu-Gom stions.htmlTo learn more about the COVID-19 vaccine, we invite you to visit the CDC website for a list of frequently asked questions. https://www.cdc.gov/coronavirus/2019-ncov/vaccines/faq.html [facility] Patient Portal Access Instructions: Stay connected with your healthcare team and access your personal medical information anytime with the [facility] Patient Portal. If you would like a full copy of your medical records please contact the [facility] Medical Records Department Thursday through Thursday between 8a.m. and 4:30p.m. Please follow the directions below to access the portal: 1.Access the email account you provided upon registration to the [facility].2.Look for an invitation email from [facility].3.Open the email and access the invitation link: Accept Invitation to [facility]4.Fill in the required momin to create your account. Sign into www.Sequitur Labs with your username and password that you [...] you will allow to register on the [facility] Patient Portal for access to your information. You can also access the [facility] Patient Portal on the Nouveaux Riche sammy. Simply click on Health Records under lensgen and then click on the Norah logo. [...] Call your local pharmacy or go to http://bit.ly/0F6Tt1r to find one close to you.3.Make use of household items: Use cat litter or old coffee grounds to dispose medications if other options arenot available. Mix your drugs with these household products, seal them in an airtight container andthrow it into the garbage. Call [facility]: [phone] to be sure your drugs can be [...] aware that I should contact my doctor. 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 If taking medicines: Umnj-kyp-nfrqlvk nausea and diarrhea medicines are generally OK [...] with soap and water and using alcohol-based surveillance monitor is the best way to prevent the [...] Keep uncooked meats away from cooked and zwlgr-kd-nru foods. Use a food thermometer when cooking. [...] or as directed by your healthcare provider 7005-6691 [employer]. [address] [place] [address]. All rights reserved. This information is not intended as a substitute for professional medical care. Always follow yourhealthcare professional's instructions. Follow Up Care 03/11/2023 14:21:03 With:[facility] Address: [address] [place] [phone]- When:3-5 days [facility] 07-05-2023 Evaluation + Plan note Diagnostic Tests Pending * Stool Gastrointestinal Panel 03/11/23 * Fecal Leukocytes 03/11/23 * Stool Culture 03/11/23 [facility] 04-17-2023 Hospital Discharge instructions Patient Education 12/22/2022 [...] fluids will help loosen secretionsin the lungs. Pxnw-nrq-afogizm cough medicines that contain dextromethorphan (such as [...] Lower leg swelling, tenderness, redness or pain 7389-3209 [employer]. [address] [place] [address], [place] [address]. All rights reserved. This information is not [...] fluids will help loosen secretionsin the lungs. Yskq-ywm-llmpxnz cough medicines that contain dextromethorphan (such as [...] Lower leg swelling, tenderness, redness or pain 2611-5302 [employer]. [address] [place] [address]. All rights reserved. This information is not intended as a substitute for professional medical care. Always follow yourhealthcare professional's instructions. Follow Up Care 12/22/2022 13:04:26 With:Go to emergency room if symptoms worsen Address:Unknown When:2-4 days With:Call Physician Referral Address:Unknown When:2-4 days [facility] 04-17-2023 Note Discharge Instructions Thank you for allowing [facility] to assist you with your healthcare needs. [...] may report side effects to FDA at 8-061-GKO-3007. What other drugs will affect albuterol inhalation? [...] may affect albuterol inhalation, including prescription and kioj-nco-xjieith medicines, vitamins, and herbal products. Not all [...] to ensure that the information provided by [employer]. ('[employer]') is accurate, up-to-date, and complete, but no guarantee is made to that effect. Drug information contained herein may be time sensitive. S[employer]Any[employer] information has been compiled for use by healthcare practitioners and consumers in the [place] and therefore [employer] does not warrant that uses outside of the [place] are appropriate, unless specifically indicated otherwise. [employer] drug information does not endorse drugs, diagnose patients or recommend therapy. [employer]et[employer] drug information isan informational resource designed to [...] effective or appropriate for any given patient. [employer] does not assume any responsibility for any aspect of healthcare administered with the aid of information [employer] provides. The information contained herein is not intended to cover all possible uses, directions, precautions, warnings, drug interactions, allergic reactions, or adverse effects. If you have questions about the drugs you are taking, check with your doctor, nurse or pharmacist. Copyright 6626-3994 [employer]. Version: 10.. Revision Date: 07/25/2020. prednisone (PRED [...] may report side effects to FDA at 7-845-GBQ-3269. What other drugs will affect prednisone? Sometimes [...] may affect prednisone. This includes prescription and gyfo-ddh-ehtjhiy medicines, vitamins, and herbal products. Not all [...] to ensure that the information provided by [employer]. ('Mult[employer]') is accurate, up-to-date, and complete, but no guarantee is made to that effect. Drug information contained herein may be time sensitive. [employer] information has been compiled for use by healthcare practitioners and consumers in the [place] and therefore [employer] does not warrant that uses outside of the [place] are appropriate, unless specifically indicated otherwise. [employer] drug information does not endorse drugs, diagnose patients or recommend therapy. [employer] drug information isan informational resource designed to [...] effective or appropriate for any given patient. [employer] does not assume any responsibility for any aspect of healthcare administered with the aid of information [employer] provides. The information contained herein is not intended to cover all possible uses, directions, precautions, warnings, drug interactions, allergic reactions, or adverse effects. If you have questions about the drugs you are taking, check with your doctor, nurse or pharmacist. Copyright 6708-3688 [employer]. Version: 10.. Revision Date: 12/02/2018. benzonatate (jania [...] may report side effects to FDA at 2-573-XBL-5667. What other drugs will affect benzonatate? Using benzonatate with other drugs that make you drowsy can worsen this effect. Ask your doctor before using opioid medication, a sleeping pill, a muscle relaxer, or medicine for anxiety or seizures. Other drugs may affect benzonatate, including prescription and vaxp-qka-mmkvtrk medicines, vitamins, and herbal products. Tell your [...] to ensure that the information provided by [employer]. ('[employer]') is accurate, up-to-date, and complete, but no guarantee is made to that effect. Drug information contained herein may be time sensitive. S[employer] information has been compiled for use by healthcare practitioners and consumers in the [place] and therefore [employer] does not warrant that uses outside of the [place] are appropriate, unless specifically indicated otherwise. [employer] drug information does not endorse drugs, diagnose patients or recommend therapy. Vet[employer]ouds drug information isan informational resource designed to [...] effective or appropriate for any given patient. [facility] does not assume any responsibility for any aspect of healthcare administered with the aid of information [facility] provides. The information contained herein is not intended to cover all possible uses, directions, precautions, warnings, drug interactions, allergic reactions, or adverse effects. If you have questions about the drugs you are taking, check with your doctor, nurse or pharmacist. Copyright 6458-1377 [facility] [employer]. Version: 9.01. Revision Date: 06/16/2019. Education Materials [...] fluids will help loosen secretionsin the lungs. Kqpv-crj-mlcsqjg cough medicines that contain dextromethorphan (such as [...] Lower leg swelling, tenderness, redness or pain 9716-7853 [employer]. [address] [place] [address], [place] [address]. All rights reserved. This information is not [...] fluids will help loosen secretionsin the lungs. Ajnb-pis-kwpvcki cough medicines that contain dextromethorphan (such as [...] Lower leg swelling, tenderness, redness or pain 8528-5296 [employer]. [address] [place] [address], [place] [address]. All rights reserved. This information is not intended as a substitute for professional medical care. Always follow yourhealthcare professional's instructions. Additional Information VACCINATE! IT SAVES LIVES! Members of the community who have not yet received the COVID-19 vaccine and would like to receive it can visit one of [facility] vaccine clinics. There are many vaccine clinic locations within the [facility]. For locations and available times, please visit www.[email or web address]/. It is important to note that some COVID mobile vaccine clinics are held outdoors and may be canceled in rainy or stormy conditions. To learn more about pediatric vaccinations (ages 5-11), we invite you to visit the [facility] webpage. https://www.[facility].org/pages/5917-Dycin-Imhhhmowvuo-Avkxvejzfv-Sxcdt-Uer stions.htmlTo learn more about the COVID-19 vaccine, we invite you to visit the CDC website for a list of frequently asked questions. https://www.cdc.gov/coronavirus/2019-ncov/vaccines/faq.html [facility] Patient Portal Access Instructions: Stay connected with your healthcare team and access your personal medical information anytime with the [facility] Patient Portal. If you would like a full copy of your medical records please contact the [facility] Medical Records Department Thursday through Thursday between 8a.m. and 4:30p.m. Please follow the directions below to access the portal: 1.Access the email account you provided upon registration to the hospital.2.Look for an invitation email from [facility].3.Open the email and access the invitation link: Accept Invitation to [facility]4.Fill in the required momin to create your account. Sign into www.Sequitur Labs with your username and password that you [...] you will allow to register on the [facility] Patient Portal for access to your information. You can also access the [facility] Patient Portal on the [employer]. Simply click on Health Records under lensgen and then click on the SendGrid logo. HOW TO SAFELY DISPOSE OF PRESCRIPTION [...] Call your local pharmacy or go to [email or web address] [email or web address] to find one close to you.3.Make use of household items: Use cat litter or old coffee grounds to dispose medications if other options arenot available. Mix your drugs with these household products, seal them in an airtight container andthrow it into the garbage. Call [facility]: [phone] to be sure your drugs can be [...] aware that I should contact my doctor. 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 Signature: Date/Time: Relationship to Patient: Witness Name/Signature: Date/Time: [facility]04-17-2023 Note ORIGINAL HISTORY: Cough COMPARISON: 17 June [...] Sign Date: 12/22/2022 2:43:59 PM Ordering Provider: [facility]04-17-2023 Note ORIGINAL HISTORY: Cough COMPARISON: 17 June [...] Sign Date: 12/22/2022 2:43:59 PM Ordering Provider: [facility]04-17-2023 SARS-CoV-2 (COVID-19) RNA TRAY+probe Ql (Nph)Negative *NA* (12/22/22 1:40 PM)AO Auto Urine [id number] Hospital Discharge instructions* Discharge Instructions* Omar Walls [...] or pallor in extremity. documented in this [facility] Work Phone: [phone] Hospital Discharge instructions* Discharge Instructions* Nahid Mackey [...] sent through Care Everywhere. * Weakness: Generalized (Tunisian) documented in this [facility] Work Phone: [phone] NoteOPERATIVE NOTE DATE OF PROCEDURE: 06/19/2022 SURGEON: [...] outside hospital who then transferred him to [facility] further care. 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 Diet: Regular PHYSICAL: Physical Exam Vitals [...] Radiology ACCESSION EXAM DATE/TIME PROCEDURE ORDERING PROVIDER [id number] 06/17/2022 03:53 EDT CR Hand Complete 3+ 132117 -VILLAFANA, Views Right HIEU CPT code 19228 Reason For Exam (CR Hand Complete 3+ [...] Result Date: 06/17/2022 [id number] Computed Tomography ACCESSION EXAMDATE/TIME PROCEDURE ORDERING PROVIDER [id number] 06/17/2022 05:[address] Chest/Abdomen/Pelvis 199108 -RENATO EATON (IV Only) CPT code 14870 78659 Q9967 Reason For Exam (CT Chest/Abdomen/Pelvis (IV [...] Radiology ACCESSION EXAM DATE/TIME PROCEDURE ORDERING PROVIDER [id number] 06/17/2022 03:53 EDT CR Wrist Complete 3 [id number] -KAM RAMIREZ Views Right CPT code 86562 Reason For Exam (CR Wrist Complete 3 [...] nodule 06/17/2022 Yes I personally supervised the STONE PAVER/PA-C in the evaluation and development of a [...] as stated in HPI. - as per STONE PAVER note - I evaluated pt on 06/18/22 - doing well, pain controlled - d/c w/ po keflex w05sost - f/u ortho outpt - plan for home today Greater than 51% of the >= 25 minute total care time throughout the day (including chart review,care coordination, and ktee-kf-thgv encounter) was spent discussing/counseling the patient/family regarding the care plan for Jessica Barr. I examined independently and reviewed relevant data myself and may have done so in the context of team rounds. Girma Tan MD Division of Trauma Department of Surgery [facility] ~~~~~~~~~~~~~~~~~~~~~~~~~~~~~~~~~~~~~~~~~~~~~~~~~~~~~~~~~~~~~ This note may have been dictated using JobApp Medical Practice Edition 2.6 and/or GenY Medium Voice Recognition Feature. The document was proofread; however, unrecognized voice recognition airplane pilot crop dusting errors may be present. * Justo Jorge, OT - 06/17/2022 4:08 PM EDT Occupational Therapy Facility/Department: [facility] Occupational Therapy Initial Assessment Name: [...] ADL at baseline and works on a [employer] and [employer]. On eval pt denies pain d/t nerve [...] and phone number for OP OT at [facility] since this is closest to home, [...] Social/Functional History Additional Comments: works on the [employer] Objective Heart Rate: 80 Heart Rate [...] 24 Timed Code Treatment Minutes: 10 Minutes Jutso Jorge OT Goals and/or treatment plan was established in collaboration with patient/family/other representatives. *OT evaluation/treatment completed wearing N95 and gloves* * Erendira Kang Haohelen, PT - 06/17/2022 2:30 PM EDT Physical Therapy Facility/Department: [facility] Physical Therapy Initial Assessment Name: [...] Social/Functional History Additional Comments: works on the [employer] Vision/Hearing Cognition Objective AROM RLE (degrees) RLE [...] care, likely discharge tomorrow documented in this [facility] Work Phone: [phone] Hospital Discharge instructions* Discharge Instructions* Glory Stinson [...] your lung navigator, Sahara Stinson RRT, @ [phone] if you have any questions about your [...] at most local grocery stores, pharmacies, and pMDsoft-stores. If you have any questions about your diet or nutrition, call the hospital and ask for the dietitian. Regular Diet * Discharge Instr - Lab* Tami Guerra RN - 06/18/2022 9:06 AM EDT Therapy recommending outpatient therapy for strengthing and balance training. Outpatient Services for rehabilitation [phone] to make an appointment [facility] at [address] [place], [place] [phone] [facility] [address] [place] [address] [facility] [address] [place] [address] [facility] [address] [place] [address] [facility] [address] [place] [address] [facility] at [address] [place] [address] [facility] at [address] [place] [address] * Attachments The following attachments cannot be sent through Care Everywhere. * Pulmonary Nodules: General Info (Tunisian) documented in this [facility] Work Phone: [phone] Note ORIGINAL EXAMINATION: CT OF THE HEAD [...] Sign Date: 06/17/2022 1:37:39 AM Ordering Provider: [facility]10-11-2022 Note ORIGINAL EXAMINATION: CT OF THE [...] Sign Date: 06/17/2022 1:35:06 AM Ordering Provider: [facility]10-11-2022 Note ORIGINAL EXAMINATION: ONE XRAY VIEW [...] Sign Date: 06/17/2022 1:31:13 AM Ordering Provider: [facility]10-11-2022 Note ORIGINAL EXAMINATION: CT OF THE HEAD [...] Date: 06/17/2022 1:37:39 AM Ordering Provider: JUA[facility]10-11-2022 Note ORIGINAL EXAMINATION: CT OF THE [...] Date: 06/17/2022 1:35:06 AM Ordering Provider: [facility]10-11-2022 Note ORIGINAL EXAMINATION: ONE XRAY [...] Date: 06/17/2022 1:31:13 AM Ordering Provider: [facility]10-11-2022 Note ORIGINAL EXAMINATION: TWO XRAY [...] Sign Date: 06/17/2022 12:21:56 AM Ordering Provider: [facility]10-11-2022 Note ORIGINAL EXAMINATION: TWO XRAY VIEWS [...] Date: 06/17/2022 12:21:56 AM Ordering Provider: [facility]08-11-2022 Hospital Discharge instructions Patient Education 04/17/2022 14:52:09 [...] Rectal bleeding can also happen without pain. 1681-4479 [employer]. [address] [place] [address]. All rights reserved. This information is not intended as a substitute for professional medical care. Always follow yourhealthcare professional's instructions. Follow Up Care 04/17/2022 14:32:48 With:VASQUEZ MOCTEZUMA MD Address: [address] [facility] [place] [address]- When:2-4 days [facility] 08-11-2022 Note Discharge Instructions Thank you for allowing [facility] to assist you with your healthcare needs. [...] When Within 2-4 days Where: [address] [facility] [place] [address]- Allergies NKA Medications Please ask [...] Rectal bleeding can also happen without pain. 0767-2799 [employer]. [address] [place] [address]. All rights reserved. This information is not intended as a substitute for professional medical care. Always follow yourhealthcare professional's instructions. Additional Information VACCINATE! IT SAVES LIVES! Members of the community who have not yet received the COVID-19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
[2025-03-05 18:36] VITALS: BMI 24.6
[2025-03-05] MEDS: 0.9% Normal Saline (1000mL) 1,000 ML 100 ML IV (18:49)
[2025-03-05 18:51] LABS: Anion Gap 10 (5-15); BUN 6 mg/dL (4-19); BUN/Creat Ratio 9.0 RATIO (10-20); Calcium,Total 9.1 mg/dL (7.6-11.0); Carbon Dioxide 22.3 mmol/L (21.0-32.0); Chloride 103 mmol/L (98-108); Estimated Creatinine Clearance 159.23 ml/min (50-250); Glucose 92 mg/dL (70-99); Potassium 4.4 mmol/L (3.3-5.1)
[2025-03-05 18:58] VITALS: BP 111/61; PULSE 54; RESP 16; TEMP 36.5; O2SAT 97
[2025-03-05 20:27] VITALS: BP 122/58; PULSE 84; RESP 18; TEMP 36.8; O2SAT 99
[2025-03-05] MEDS: Ketorolac 30 MG/ML Syringe IV (22:11)
[2025-03-06] VITALS (19 sets, daily range): BP systolic 106–134; BP diastolic 43–70; PULSE 48–84; RESP 16–20; TEMP 36.2–36.9; O2SAT 93–100; BMI 24.6
[2025-03-06] MEDS: 0.9% Normal Saline (1000mL) 1,000 ML 100 ML IV (03:43)
[2025-03-06 06:03] LABS: Hematocrit 39.3 % (40-54); Hemoglobin 13.3 g/dL (13.0-16.5); Immature Granulocytes Count 0.030 X10^3/uL (0.0-0.0); Mean Corp Hgb Conc 33.8 g/dL (32-36); Mean Corpuscular Volume 86.9 fL (80-94); Mean Platelet Vol. 10.1 fl (6.2-12.0); NRBC Flagged by Analyzer 0 % (0-5); Platelet Count 346 K/mm3 (150-450); RBC Distribution Width CV 13.4 % (11.6-14.6); RBC Distribution Width SD 42.5 fl (35.1-43.9); Red Blood Count 4.52 M/mm3 (4.6-6.2); White Blood Count 7.7 K/mm3 (4.4-11.0)
[2025-03-06 06:19] LABS: Anion Gap 10 (5-15); BUN 9 mg/dL (4-19); BUN/Creat Ratio 12.8 RATIO (10-20); Calcium,Total 9.1 mg/dL (7.6-11.0); Carbon Dioxide 22.4 mmol/L (21.0-32.0); Chloride 105 mmol/L (98-108); Estimated Creatinine Clearance 154.86 ml/min (50-250); Glucose 95 mg/dL (70-99); Potassium 3.9 mmol/L (3.3-5.1)
--- NOTE | 2025-03-06 07:10 | PN.HOSP_ITS ---
Reason for Visit Reason for Visit: Diagnoses Right testicular pain (03/05/25) Other specified disorders of the male genital organs (03/05/25) Objective Data Objective Data Vital Signs: Vital Signs Temp Pulse Resp BP Pulse Ox O2 Del Method 97.8 F 59 L 18 134/62 H 100 Room Air 03/06/25 03:41 03/06/25 03:41 03/06/25 03:41 03/06/25 03:41 03/06/25 03:41 03/06/25 03:46 Oxygen Delivery Method Room Air Weight: 162 lb Body Mass Index (BMI) 24.6 Intake & Output: Intake and Output for Last 24 Hours 03/04/25 03/05/25 03/06/25 23:59 23:59 23:59 Intake Total 1390 / 1390 Balance 1390 / 1390 Lab / Micro Data 03/06/25 05:12 03/06/25 05:12 Labs: Laboratory Results - last 24 hr 03/05/25 18:00: WBC 7.6, RBC 4.68, Hgb 13.4, Hct 40.0, MCV 85.5, MCH 28.6, MCHC 33.5, RDW Std Deviation 41.9, RDW Coeff of Emigdio 13.4, Plt Count 378, MPV 9.6, Immature Gran % (Auto) 0.300, Neut % (Auto) 58.8, Lymph % (Auto) 23.5, [place] % (Auto) 12.4 H, Eos % (Auto) 3.4, Baso % (Auto) 1.6 H, Absolute Neuts (auto) 4.5, Absolute Lymphs (auto) 1.78, Nucleated RBC % 0, Sodium 136, Potassium 4.4, Chloride 103, Carbon Dioxide 22.3, Anion Gap 10, BUN 6, Creatinine 0.71, Estim Creat Clear Calc 159.23, Est GFR (MDRD) Non-Af 134, BUN/Creatinine Ratio 9.0 L, Glucose 92, Calcium 9.1 '03/06/25 05:12: WBC 7.7, RBC 4.52 L, Hgb 13.3, Hct 39.3 L, MCV 86.9, MCH 29.4, MCHC 33.8, RDW Std Deviation 42.5, RDW Coeff of Emigdio 13.4, Plt Count 346, MPV 10.1, Immature Gran % (Auto) 0.400, Neut % (Auto) 62.3, Lymph % (Auto) 21.4, M zoey % (Auto) 12.0 H, Eos % (Auto) 3.0, Baso % (Auto) 0.9, Absolute Neuts (auto) 4.8, Absolute Lymphs (auto) 1.64, Nucleated RBC % 0, Sodium 138, Potassium 3.9, Chloride 105, Carbon Dioxide 22.4, Anion Gap 10, BUN 9, Creatinine 0.73, Estim Creat Clear Calc 154.86, Est GFR (MDRD) Non-Af 133, BUN/Creatinine Ratio 12.8, Glucose 95, Calcium 9.1 Radiography Diagnostic Testing: Radiology Impression Testicular Ultrasound 03/05/25 14:55 IMPRESSION: 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 Additional differential within the right testicle is torsion. Small hydrocele within the right. Reading Location: [facility] Physical Exam Narrative Does have some pain on palpation of right testicle, right testicle is also elevated compared to left, no left-sided changes or pain Seen and examined. Patient denies prior history of groin surgery or undescended testes. No family history of gonadal cancer. Complain of pain of the right testicle Physical exam General: Alert, Oriented x3, Cooperative HEENT: Atraumatic, PERRLA, EOMI, Normocephalic. Oral: No Gingival or Mucosal Lesions/ Ulcerations Neck: Supple, No JVD, Negative Carotid Bruits Chest wall/Lungs: Air entry equal in bilateral lung bases. No crepitation/rhonchi Cardiovascular: Regular rate and rhythm, Normal S1,S2, No M/G/R Abdomen: Bowel Sounds Present, Soft, Non Tender, Non-Distended : Right testicle bigger than the left, very tender and sensitive. Left testis is normal in size, nontender no dysuria. No penile discharge. No renal angle tenderness. No suprapubic tenderness. Extremities: No edema, Capillary Refill Less than 3 Seconds Skin: No rashes, No breakdown Musculoskeletal: No Tenderness to Palpation of Joints or Extremities Neurological: Cranial nerves II-XII grossly intact, DTR 2+/4. No acute focal neurological deficit. Psych/Mental Status: Normal Affect, Appropriate. Assessment & Plan Assessment/Plan (1) Mass of right testicle: (2) Pain in right testicle: PLAN: Plan 19-year-old male admitted with right testicular pain and swelling ongoing for 1 week. Testicular ultrasound showed complex vascular mass. On the day of admission he woke up with increased pain and swelling. # Pain in right testicle most likely due to solid mass in the right testicle: -Ultrasound with complex vascular mass -Per ED note radiologist reported blood flow -Given patient came back to the ED with continued pain Dr. Van recontacted Patient right radical orchiectomy on 03/06/2025. IntraOp finding: Solid mass in the right testicle removed completely right at the radical orchiectomy. Pain control, IV fluid -Supportive care #Tobacco use -Advise cessation -Nicotine replacement available if desired #DVT ppx: SCDs Charges/Coding Visit Charges Inpatient E&M: 76566 Subs Hosp L2
--- NOTE | 2025-03-06 07:26 | CON.PCM.UR_ITS ---
Assessment & Plan Assessment/Plan (1) Mass of right testicle: PLAN: Plan to proceed with a right radical orchiectomy suspected testicular mass on the right testicle (2) Pain in right testicle: (3) Physical exam, routine: HPI Consult Data Date of Consult: 03/06/25 HPI Narrative Reason for Consultation: Solid right testicular mass HPI Narrative: JESSICA KINGSLEY, is a 19 M who presents to the emergency room with second time with pain in the right testicle he has a enlarging mass on ultrasound this demonstrated vascular and enlarging mass in the right testicle this is very concerning for a malignancy patient was admitted for pain control taken to surgery immediately today for a right radical orchiectomy this is very likely a testicular cancer. [facility] Medical History Smoker Depression Anxiety Home Medications ?Medication ?Instructions ?Recorded ?Last Taken ?Type hydrocodone-acetaminophen 5-325mg 1 tab PO Q6H PRN PRN Pain 3 days 03/05/25 Unknown Rx 5mg-325mg #12 TABLETS ondansetron 4 mg disintegrating 4 mg PO Q6H PRN nausea and 03/05/25 Unknown Rx tablet vomiting #12 tabs Allergy/AdvReac Type Severity Reaction Status Date / Time No Known Allergies Allergy Verified 03/05/25 14:35 Surgical History Status post open reduction and internal fixation (ORIF) of fracture Social History Smoking Status: Current every day smoker tobacco type: cigarettes and e- cigarettes alcohol intake: current alcohol intake frequency: a few times a month substance use type: marijuana ROS Constitutional Constitutional: Denies chills, fever(s) or malaise Eyes Eyes: Denies blurry vision or change in vision ENT HEENT: Reports none Cardiovascular Cardiovascular: Denies chest pain or palpitations Respiratory/Chest Respiratory/Chest: Denies cough or shortness of breath with exertion Gastrointestinal Gastrointestinal: Denies abdominal pain, constipation or diarrhea Musculoskeletal Musculoskeletal: Denies back pain, joint stiffness or joint swelling Integumentary Integumentary: Denies dry skin, jaundice, lesions or rash Neurologic Neurologic: Denies confusion, syncope or weakness Psychiatric Psychiatric: Reports none; Denies anxiety or depression Endocrine Endocrinology: Denies excessive sweating, fatigue or flushing Hematologic/Lymphatic Hematologic/Lymphatic: Denies anemia, easy bleeding or easy bruising Lab / Micro Data 03/06/25 05:12 03/06/25 05:12 Labs: Laboratory Results - last 24 hr 03/05/25 18:00: WBC 7.6, RBC 4.68, Hgb 13.4, Hct 40.0, MCV 85.5, MCH 28.6, MCHC 33.5, RDW Std Deviation 41.9, RDW Coeff of Emigdio 13.4, Plt Count 378, MPV 9.6, Immature Gran % (Auto) 0.300, Neut % (Auto) 58.8, Lymph % (Auto) 23.5, [place] % (Auto) 12.4 H, Eos % (Auto) 3.4, Baso % (Auto) 1.6 H, Absolute Neuts (auto) 4.5, Absolute Lymphs (auto) 1.78, Nucleated RBC % 0, Sodium 136, Potassium 4.4, Chloride 103, Carbon Dioxide 22.3, Anion Gap 10, BUN 6, Creatinine 0.71, Estim Creat Clear Calc 159.23, Est GFR (MDRD) Non-Af 134, BUN/Creatinine Ratio 9.0 L, Glucose 92, Calcium 9.1 03/06/25 05:12: WBC 7.7, RBC 4.52 L, Hgb 13.3, Hct 39.3 L, MCV 86.9, MCH 29.4, MCHC 33.8, RDW Std Deviation 42.5, RDW Coeff of Emigdio 13.4, Plt Count 346, MPV 10.1, Immature Gran % (Auto) 0.400, Neut % (Auto) 62.3, Lymph % (Auto) 21.4, M zoey % (Auto) 12.0 H, Eos % (Auto) 3.0, Baso % (Auto) 0.9, Absolute Neuts (auto) 4.8, Absolute Lymphs (auto) 1.64, Nucleated RBC % 0, Sodium 138, Potassium 3.9, Chloride 105, Carbon Dioxide 22.4, Anion Gap 10, BUN 9, Creatinine 0.73, Estim Creat Clear Calc 154.86, Est GFR (MDRD) Non-Af 133, BUN/Creatinine Ratio 12.8, Glucose 95, Calcium 9.1 Imaging Radiology Impression Testicular Ultrasound 03/05/25 14:55 IMPRESSION: 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 Additional differential within the right testicle is torsion. Small hydrocele within the right. Reading Location: [id number]
[2025-03-06] MEDS: 0.9% Saline Lock 10 ML Syringe IV ×5 (07:50→21:23)
[2025-03-06] MEDS: Ketorolac 30 MG/ML Syringe IV ×2 (07:50→19:53)
--- NOTE | 2025-03-06 08:32 | CASEMGMT ---
Medical record reviewed and patient evaluated for identification of discharge planning needs. Patient noted to be independent without decline in physical or cognitive function. Patient is not at high risk for adverse health consequences at discharge and does not currently demonstrate a need for discharge planning. Will continue to monitor patient?s progress, reassess for change in discharge needs, and intervene as indicated.
[2025-03-06] MEDS: HYDROmorphone 0.5 MG/0.5 ML SYRINGE IV ×3 (09:09→21:22)
--- NOTE | 2025-03-06 10:49 | NURSING ---
Pt sent to surgery
[2025-03-06] MEDS: Lactated Ringers 1,000 ML 15 ML IV (11:00)
--- NOTE | 2025-03-06 11:19 | PRE.ANES_ITS ---
ASA Classification* ASA Classification ASA Classification: 2 and E Assessment & Plan Anesthesia* Anesthesia Assessment Anesthesia Assessment: Discussed sedation and/or anesthesia options, risks, benefits, and alternatives with patient/parents/legal guardian/POA. Questions invited. The patient/parents/legal guardian/POA seems to understand and agrees to proceed with anesthesia plan. Reviewed the physical assessment, medical history, allergy history and patient home medications list prior to surgery/procedure/anesthetic and documented any changes. Performed airway and anesthesia risk assessments. Anesthesia Type Anesthesia Type: General History Source History Obtained from:: Patient and Chart Anesthesia Focused Assessment* Temperature: 98.5 F Pulse Rate: 51 Blood Pressure: 112/66 Respiratory Rate: 16 Pulse Ox: 95 Oxygen Delivery Method: Room Air Airway Assessment Mouth opens: >3 cm Mallampati Score: II Teeth Condition: Intact Neck Range of motion (ROM): Full ROM Labs Anesthesia Preop lab: CBC WBC 7.7 K/mm3 (4.4-11.0) 03/06/25 05:12 03/06/25 RBC 4.52 M/mm3 (4.6-6.2) L 03/06/25 05:12 03/06/25 Hgb 13.3 g/dL (13.0-16.5) 03/06/25 05:12 03/06/25 Hct 39.3 % (40-54) L 03/06/25 05:12 03/06/25 Plt Count 346 K/mm3 (150-450) 03/06/25 05:12 03/06/25 CHEMISTRY Potassium 3.9 mmol/L (3.3-5.1) 03/06/25 05:12 03/06/25 Sodium 138 mmol/L (133-145) 03/06/25 05:12 03/06/25 BUN 9 mg/dL (4-19) 03/06/25 05:12 03/06/25 Creatinine 0.73 mg/dL (0.70-1.20) 03/06/25 05:12 03/06/25 Glucose 95 mg/dL (70-99) 03/06/25 05:12 03/06/25 COAG Pre-Assessment Diagnosis/Proposed Procedure Planned Operative Procedure(s): Right radical orchiectomy Anesthesia History Anesthesia History - public relations professional: Anesthesia History - public relations professional Hx Hospitalization Any Problems With Anesthesia No 03/05/25 20:37 Cholinesterase deficiency No 03/05/25 20:37 You/Your Family Experience No: pt unsure about family 03/05/25 20:37 fever (hyperthermia) with Relationship Recent Exposure to Contagious No 03/05/25 20:37 Disease Does patient have nerve No 03/05/25 20:37 stimulator Patient instructed to have No 03/05/25 20:37 device shut off --Does patient have Pacemaker No 03/06/25 08:49 or ICD? When Was Last Pacemaker Check QUESTION #4 FULL TEXT: You/Your Family Experience fever (hyperthermia) with Anesthesia Last Oral Intake Last Oral intake: Last Oral Intake NPO since 00:00 03/06/25 08:49 Meds taken in AM with sips of water? Meds patient instructed to take am of surgery PONV PONV - public relations professional: PONV - public relations professional Female HX of Motion Sickness HX of N/V After Surgery Non-Smoker Duration of Surgery greater than 60 minutes Number of Risk Factors PONV Score Height & Weight Height & Weight: Anesthesia: Height & Weight Height 5 ft 8 in 03/06/25 08:49 Weight: 73.482 kg 03/06/25 08:49 Body Mass Index (BMI) 24.6 03/06/25 08:49 Respiratory Assessment Respiratory Assessment - public relations professional: Respiratory Tract Infection Hx - public relations professional Hx Respiratory Tract Infection No 03/05/25 20:37 Any additional information?: Yes Hx Respiratory Tract Infection: Yes History of Anesthesia Respiratory Infection details: Patient has had a cough for about a week and a half. Better for about a few days now. STOP Sleep Apnea STOP Sleep Apnea - public relations professional: STOP Sleep Apnea - public relations professional Hx Hypertension No 03/05/25 18:36 Hx Sleep Apnea No 03/05/25 18:36 CPAP BIPAP Do you snore loudly (louder No 03/05/25 18:36 than talking or can be heard Do you often feel tired/ No 03/05/25 18:36 fatigued/ sleepy during daytime? Has anyone observed you stop No 03/05/25 18:36 breathing during sleep? STOP Results Negative 03/05/25 18:36 QUESTION #5 FULL TEXT : Do you snore loudly (louder than talking or can be heard through closed doors)? 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 Specify any problems Hx of Preganancy in last 3 N/A 03/05/25 18:36 Months Nurse Filling Out Transfusion TWOLF 03/05/25 18:36 & Questions: Date: 03/05/25 03/05/25 18:36 Time: 18:37 03/05/25 18:36 Patient unable to answer at this time (ie. confused, unrespo /Reproduction History /Reproductive History - public relations professional: /Reproductive Hx- public relations professional Hx Now No 03/05/25 20:37 Gestational Age (in weeks): EDC: Hx Hx Para Hx Section SAB No 03/05/25 20:37 Active Medications Active Medications: Current Medications Generic Name Dose Route Start Last Admin Trade Name Freq PRN Reason Stop Dose Admin Acetaminophen 650 mg 03/05/25 18:33 03/06/25 03:36 Acetaminophen 325 Mg Tablet PO 650 mg Q6H PRN PRN Administration Pain 1-10 Or Fever >100.7 Albuterol Sulfate 2.5 mg 03/05/25 18:33 Albuterol 2.5 Mg/3 Ml Vial.Neb. INHALATION Q2H PRN PRN SOB &/OR WHEEZING Hydromorphone HCl 0.5 - 1 mg 03/06/25 08:45 03/06/25 09:09 Hydromorphone 0.5 Mg/0.5 Ml Syringe IV 1 mg Q4H PRN PRN Administration Pain Score 4-10 or Pre PT/OT Sodium Chloride 1,000 mls @ 100 mls/hr 03/05/25 18:33 03/06/25 03:43 IV 03/06/25 14:32 100 mls/hr .Q10H MYRNA Administration Sodium Chloride 250 mls @ 15 mls/hr 03/05/25 18:42 IV .[id number] PRN Saline Flush Sodium Chloride 250 mls @ 15 mls/hr 03/05/25 18:42 IV .[id number] PRN Additional IVPB Infusion Cefazolin Sodium 2 gm/ Sodium 110 mls @ 200 mls/hr 03/06/25 11:00 Chloride IV 03/06/25 11:32 X1 ONE Lactated Ringer's 1,000 mls @ 15 mls/hr 03/06/25 11:00 03/06/25 11:00 IV 15 mls/hr .Q48H MYRNA Administration Ketorolac Tromethamine 30 mg 03/05/25 18:33 03/06/25 07:50 Ketorolac 30 Mg/Ml Syringe IV 03/10/25 18:33 30 mg Q6H PRN PRN Administration Pain Score 1-10 Melatonin 10 mg 03/05/25 18:33 Melatonin 10 Mg Tablet PO QHS PRN PRN INSOMNIA Morphine Sulfate 2 mg 03/05/25 18:33 03/05/25 20:24 Morphine 2 Mg/Ml Syringe IV 2 mg Q3H PRN PRN Administration Pain Score 6-10 Nicotine Polacrilex 4 mg 03/05/25 18:33 Nicotine Polacrilex 4 Mg Gum PO Q2H PRN PRN Nicotine craving Ondansetron HCl 4 mg 03/05/25 18:33 Ondansetron 4 Mg/2 Ml Vial IV Q8H PRN PRN NAUSEA/VOMITING Oxycodone HCl 5 mg 03/05/25 18:33 03/06/25 03:36 Oxycodone 5 Mg Tablet PO 5 mg Q4H PRN PRN Administration Pain Score 4-10 Senna/Docusate Sodium 2 tablet 03/05/25 18:33 Senna/Docusate Sodium 1 Tablet PO BID PRN PRN Constipation Sodium Chloride 10 - 40 ml 03/05/25 18:42 03/06/25 09:09 0.9% Saline Lock 10 Ml Syringe IV 10 ml UD PRN Administration SALINE FLUSH PFSH Medical History Smoker Depression Anxiety Home Medications ?Medication ?Instructions ?Recorded ?Last Taken ?Type hydrocodone-acetaminophen 5-325mg 1 tab PO Q6H PRN PRN Pain 3 days 03/05/25 Unknown Rx 5mg-325mg #12 TABLETS ondansetron 4 mg disintegrating 4 mg PO Q6H PRN nausea and 03/05/25 Unknown Rx tablet vomiting #12 tabs Allergy/AdvReac Type Severity Reaction Status Date / Time No Known Allergies Allergy Verified 03/05/25 14:35 Surgical History (Updated 03/06/25 @ 11:[address] Papito Cottrell MD) Status post open reduction and internal fixation (ORIF) of fracture Social History Smoking Status: Current every day smoker tobacco type: cigarettes and e- cigarettes alcohol intake: current alcohol intake frequency: a few times a month substance use type: marijuana Review of Systems (Anesthesia) ROS Narrative System reviewed and no additional complaints, except as documented.
--- NOTE | 2025-03-06 12:00 | TEST_PTH ---
PATIENT: JESSICA KINGSLEY LOC: MS3 U#:[id number] AGE/SX: 19/M [place] [facility]: Dr. Frankie Moreno MD : 2005 BED: 1 DIS: 03/07/2025 SPEC #: [id number] RECD: 03/06/25 13:31 STATUS: RYAN REToney #: [id number] SADIQ: 03/06/25 12:[address]: Feliz Van DEPT: SURGICAL PATHOLOGY RECD BY: Octavio Nolan ENTERED: 03/06/25 13:45 SP TYPE: TESTICLE OTHR DR: MD Dr. Felecia Eid MD Elizabeth Steiner, ENVIRONMENTAL HEALTH OFFICER-C Tissues: A - Testis, NOS Procedures: Immunohistochemical Stains Surgery Specimen Level IHC Stain ADDITIONAL HEADER OPERATION: Orchiectomy, radical PRE-OP DIAGNOSIS: Solid right testicular mass TISSUE SUBMITTED: A- Right testicle MICROSCOPIC DIAGNOSIS A. 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 SYNOPTIC REPORT FOR TESTICULAR GERM CELL TUMOR: Procedure (r=radical orchiectomy):?R Laterality (r=right, l=left):?R Focality (u=unifocal, m=multifocal):?U Tumor size (cm):?3.2x3.0x2.9 cm Histologic types (with %): teratoma (50%),?embryonal 40%), yolk sac (10%). Lymphovascular invasion:?not identified ? Tumor extent (n=no, y=yes, na=not applicable):? Invasion of rete stroma: N ??? Invasion of epididymis: N ??? Invasion of hilar fat: N ?? ?Invasion of tunica vaginalis:?N ??? Invasion of spermatic cord: N ??? Invasion of scrotum:?NA ? Margins (n=negative, p=positive, na=not applicable):?N ??? Location positive margin:?NA ? Regional lymph nodes (n=no, y=yes, na=not applicable): NA ??? Number examined:?0 ??? Number positive:?NA ??? Size of largest involved node/mass (cm):?NA ??? Extranodal extension:?NA ??? Histologic types (with % if more than 1 type):?NA ? Additional findings:?NONE pTNM:?pT1b?NX Comments:?IHC utilized in the assessment - betaHCG AFP CD30 ANNITA-3 Glyp[place]-3 ?? The above synoptic report complies, in slightly modified form, with the guidelines of the [employer] and the Association of Directors of Anatomic and Surgical Pathology for the reporting of cancer specimens. COMMENT Selected slides/images were reviewed in intradepartmental consultation by Dr Davy Graham ( pathology division, [facility]). MICROSCOPIC DESCRIPTION Slides are reviewed. All controls show appropriate reactivity. All immunohistochemistry, in situ hybridization, and histochemical tests were developed by and are performed at the [facility], [address] [place] [address]. All Immunofluorescent (IF)?tests were developed by and are performed at the [facility], [address] [place] [address] ?[facility]. All tests reported here, except those addressing HER2 overexpression as a predictive marker, have not been cleared by or approved by the US Food and Drug Administration (FDA). The laboratory is regulated under CLIA as qualified to perform high-complexity testing. The tests are used for clinical purposes. They should not be regarded as investigational or for research. GROSS DESCRIPTION A. Received in formalin labeled with the patient's name and date of . Designated as right testicle is a 38.9 g radical orchiectomy comprised of a testicle measuring 5.0 x 3.6 x 2.8 cm and attached spermatic cord, 6.0 cm in length x 1.3-1.8 cm in diameter. The spermatic cord margin is shaved. The specimen is inked as follows: Spermatic cord: [place] Tunica vaginalis: Black Tunica albuginea: Blue The testicle is bivalved, revealing a 3.2 x 3.0 x 2.9 cm clemons-white to proctor, somewhat mucinous and focally congested mass. The mass is confined to the testicle. The mass is located 0.6 cm from the epididymis and >4.5 cm from the spermatic cord margin. The mass does not involve the tunica vaginalis, spermatic cord or epididymis. The mass grossly abuts the tunica albuginea and rete testes. The uninvolved testicular parenchyma is clemons with seminiferous tubules that string with ease. Inhalation Therapy Aides Teacher sections are submitted as follows: A1: Spermatic cord margin, shavedA2: Spermatic cord cross-sectionsA3: Mass to tunica albugineaA4: Mass to epididymisA5: Mass to rete testesA6: Uninvolved parenchyma, to include tunica vaginalis [place] 03/07/2025 CPT:48575,[id number]
[2025-03-06] MEDS: Cefazolin 2 GM in 0.9% Normal Saline (100mL Bag) 100 ML IV (12:20)
--- NOTE | 2025-03-06 13:01 | OP.PCM_ITS ---
Operative Report (Standard) Operative Information Date of Procedure: 03/06/25 Pre-Operative Diagnosis: Right testicular mass Post-Operative Diagnosis: The same Surgery/Procedure Performed: Right radical orchiectomy patcher helper: No Type of Anesthesia: General RN Documented Start/Stop Times: Operation Date: 03/06/25 12:00 Case Time Into Pre-Op 03/06/25 10:52 Out of Pre-Op 03/06/25 12:16 Anesthesia Start 03/06/25 12:20 Into Room 03/06/25 12:20 Procedure Start 03/06/25 12:35 Procedure Start Time: 12:35 Procedure Stop Time: 13:02 Select all DRAINS/GRAFTS/IMPLANTS that apply: None Estimated Blood Loss: None Specimen collected: No Description of surgery: Patient was seen in the preoperative area, he has an abnormal rigth testicle which on exam is abnormal and also has a ultrasound is abnormal on the right side. Because of this we discussed the potential risk for malignancy and working to proceed with a radical orchiectomy on the right side. He understands is possible that the testicle even the looks abnormal and feels abnormal may not be cancerous it could be scar tissue it could be inflammation or infection. He understands no guarantee that it is cancer. Also there is no guarantees that if we remove the testicle and he has cancer is cured and the patient may require more treatments such as chemotherapy and radiation if he does have testicle cancer. Preoperative tumor markers were drawn. We discussed the risk of the procedure including risk of getting a hernia at the site of surgery, infection or bleeding. We also discussed the possibility of low testosterone level and infertility with one testicle. Patient was taken back to the operating room at the smooth induction of anesthesia. The penis and genitals were prepped and draped in usual sterile fashion, the abdomen was shaved as well as the testicles were shaved. The side of the orchiectomy which is the right side was marked. A timeout was performed. I then made a inguinal incision on the right side, dissected through the skin superficial fat Lynda's fascia with it was then incised there was a small blood vessel across Lynda's fascia that was cauterized and suture- ligated. The I then came across the top of the inguinal canal and opened up the inguinal canal with a joker. We then encircled the blood vessels and performed high ligation of the testicle I then dissected out the testicle on the right side and delivered it from the testicle through the inguinal incision. We then dissected using electrocautery to free the testicle from the scrotum and transected through the gubernaculum. And the testicle was placed into a container and sent to pathology. We then made sure that the vessels were clear and there were not bleeding we irrigated the wound we closed the anterior layer of the inguinal canal with interrupted stitches and then we closed the Lynda's fascia and then closed the skin with subcuticular stitches. All needles stitches were accounted for. There was a complete count at the end of the case after closure. Patient was taken back to the PACU in stable condition. Surgical Findings: Solid mass in the right testicle removed completely right at the radical orchiectomy Complications Complications: No Admit VTE Documentation VTE Present on Admission: No VTE Mechan Device Prophylaxis: SCD's VTE Pharm Prophylaxis ordered?: No
--- NOTE | 2025-03-06 13:17 | PCM.POST.ANE ---
Anesthesia: Postop Eval I Current Vital Signs Temperature: 98 F Pulse Rate: 79 Blood Pressure: 118/61 Respiratory Rate: 20 Pulse Ox: 97 Assessment Airway patent: Yes Spontaneous unlabored respirations: Yes nausea: No Vomiting: No Anesthesia Complication: No Fluid Hydration Crystalloid volume administer (ml): 800 Total IV fluid infused: 800 Progress Note Anesthesia document: Postop Eval 1 completed: Yes
[2025-03-06 13:21] LABS: LDH 176 U/L (87-241)
--- NOTE | 2025-03-06 14:03 | DCINST_ITS ---
Discharge Instructions Diet Discharge Diet: No restrictions DC O2, CPAP, BIPAP needs Home O2 Discharge instructions: No Dressing / Incision Discharge Activity: Return to Normal Activity and May Not Drive (while taking narcotic pain medications.) Dressing / Incision Call your doctor if you observe: Fever of 101 or Higher Follow Up Care Please Follow Up With: Feliz Van MD When: Call [phone] for an appointment to go over tissue results Test Results: Test results from this visit will be discussed in further detail at your follow- up appointment, if applicable. Discharge Plan Admission Admit Date/Time: 03/05/25 18:06 Attending Provider: Frankie Moreno Primary Care Provider: Mitali Mcnair NP Consulting Providers: Feliz Van; Felecia Roland Instructions Forms: ED Work / School Excuse Additional Instructions / Restrictions: The ultrasound shows no significant changes from yesterday. The mass is the same size. Call the urologist tomorrow to schedule an appointment. You can take ibuprofen 600 mg every 6 hours. Do not take it more frequently than this. I prescribed hydrocodone which can be taken every 6 hours. This medication can cause nausea, sedation, and constipation. I recommend you take a stool softener like MiraLAX or Dulcolax while using this medicine. Discharge Orders/Prescriptions Prescriptions: New hydrocodone-acetaminophen 5-325 mg tablet 1 tab PO Q6H PRN PRN (Reason: Pain) 3 Days Qty: 12 0RF ondansetron 4 mg tablet,disintegrating 4 mg PO Q6H PRN (Reason: nausea and vomiting) Qty: 12 0RF Referrals / Follow Up: Feliz Van MD [Med Staff - Active Staff] - Mitali Mcnair NP, SPECIAL [employer] COMBATANT CREWMAN-C [Primary Care Provider] -
--- NOTE | 2025-03-06 16:45 | POSTOPAN2_ITS ---
Anesthesia Postop Eval I Sum Postop Eval Completion status Anesthesia document: Postop Eval 1 completed: Yes Anesthesia Postop Eval I Summary Anesthesia Postop Eval I Summary: Anesthesia Postop Eval I: Assessment Summary Airway patent Yes 03/06/25 13:17 MANUFACTURING TEAM MEMBER.CSIR Spontaneous unlabored Yes 03/06/25 13:17 MANUFACTURING TEAM MEMBER.CSIR respirations Mental status nausea No 03/06/25 13:17 MANUFACTURING TEAM MEMBER.CSIR Vomiting No 03/06/25 13:17 MANUFACTURING TEAM MEMBER.CSIR Anesthesia Postop Eval I: Fluid Summary Crystalloid volume administer 800 03/06/25 13:17 MANUFACTURING TEAM MEMBER.CSIR (ml) Colloids volume administered ( ml) Blood Product volume administered (ml) Total IV fluid infused 800 03/06/25 13:17 MANUFACTURING TEAM MEMBER.CSIR Anesthesia Postop Eval I: Summary Notes Anesthesia Complication No 03/06/25 13:17 MANUFACTURING TEAM MEMBER.CSIR Anesthesia Complication Comment: Post-operative progress note Anesthesia: Postop Eval II Evaluation Mental status: Awake Pain Level: 1 nausea: No Vomiting: No
--- NOTE | 2025-03-06 16:45 | PCM.POSTANE2 ---
Anesthesia Postop Eval I Sum Postop Eval Completion status Anesthesia document: Postop Eval 1 completed: Yes Anesthesia Postop Eval I Summary Anesthesia Postop Eval I Summary: Anesthesia Postop Eval I: Assessment Summary Airway patent Yes 03/06/25 13:17 RECREATION ASSISTANT.CSIR Spontaneous unlabored Yes 03/06/25 13:17 RECREATION ASSISTANT.CSIR respirations Mental status nausea No 03/06/25 13:17 RECREATION ASSISTANT.CSIR Vomiting No 03/06/25 13:17 RECREATION ASSISTANT.CSIR Anesthesia Postop Eval I: Fluid Summary Crystalloid volume administer 800 03/06/25 13:17 RECREATION ASSISTANT.CSIR (ml) Colloids volume administered ( ml) Blood Product volume administered (ml) Total IV fluid infused 800 03/06/25 13:17 RECREATION ASSISTANT.CSIR Anesthesia Postop Eval I: Summary Notes Anesthesia Complication No 03/06/25 13:17 RECREATION ASSISTANT.CSIR Anesthesia Complication Comment: Post-operative progress note Anesthesia: Postop Eval II Evaluation Mental status: Awake Pain Level: 1 nausea: No Vomiting: No
[2025-03-07 01:27] VITALS: BP 111/52; PULSE 60; RESP 18; TEMP 36.5; O2SAT 100
[2025-03-07] MEDS: 0.9% Saline Lock 10 ML Syringe IV (01:33)
[2025-03-07] MEDS: HYDROmorphone 0.5 MG/0.5 ML SYRINGE IV (01:33)
[2025-03-07 06:12] VITALS: BP 115/48; PULSE 78; RESP 16; TEMP 36.9; O2SAT 100
[2025-03-07 07:33] LABS: Hematocrit 37.7 % (40-54); Hemoglobin 12.8 g/dL (13.0-16.5); Immature Granulocytes Count 0.090 X10^3/uL (0.0-0.0); Mean Corp Hgb Conc 34.0 g/dL (32-36); Mean Corpuscular Volume 86.3 fL (80-94); Mean Platelet Vol. 10.5 fl (6.2-12.0); NRBC Flagged by Analyzer 0 % (0-5); Platelet Count 373 K/mm3 (150-450); RBC Distribution Width CV 13.2 % (11.6-14.6); RBC Distribution Width SD 41.3 fl (35.1-43.9); Red Blood Count 4.37 M/mm3 (4.6-6.2); White Blood Count 15.9 K/mm3 (4.4-11.0)
[2025-03-07 09:00] VITALS: BP 122/53; PULSE 57; RESP 16; TEMP 36.6; O2SAT 100
[2025-03-07] MEDS: Ketorolac 30 MG/ML Syringe IV (09:03)
--- NOTE | 2025-03-07 10:08 | DCINST_ITS ---
Discharge Instructions Diet Discharge Diet: No restrictions DC O2, CPAP, BIPAP needs Home O2 Discharge instructions: No Dressing / Incision Discharge Activity: Return to Normal Activity Weight Bearing Status: Weight bearing as tolerated Dressing / Incision Call your doctor if you observe: Fever of 101 or Higher Follow Up Care Please Follow Up With: Feliz Van MD When: IN 2 WEEKS Test Results: Test results from this visit will be discussed in further detail at your follow- up appointment, if applicable. Discharge Plan Admission Admit Date/Time: 03/05/25 18:06 Primary Reason for Your Visit: Right radical orchiectomy Attending Provider: Frankie Moreno Primary Care Provider: Mitali Mcnair NP Consulting Providers: Feliz Van; Felecia Roland Instructions Forms: ED Work / School Excuse Additional Instructions / Restrictions: The ultrasound shows no significant changes from yesterday. The mass is the same size. Call the urologist tomorrow to schedule an appointment. You can take ibuprofen 600 mg every 6 hours. Do not take it more frequently than this. I prescribed hydrocodone which can be taken every 6 hours. This medication can cause nausea, sedation, and constipation. I recommend you take a stool softener like MiraLAX or Dulcolax while using this medicine. Discharge Orders/Prescriptions Prescriptions: New hydrocodone-acetaminophen 5-325 mg tablet 1 tab PO Q6H PRN PRN (Reason: Pain) 3 Days Qty: 12 0RF ondansetron 4 mg tablet,disintegrating 4 mg PO Q6H PRN (Reason: nausea and vomiting) Qty: 12 0RF sennosides-docusate sodium [Stimulant Laxative Plus] 8.6-50 mg Tablet 2 tab PO BID PRN PRN (Reason: Constipation) Qty: 0 0RF Rx Instructions: Available [id number] pain Referrals / Follow Up: Feliz Van MD [Med Staff - Active Staff] - Mitali Mcnair NP, MEDICAL TECHNICIAN-C [Primary Care Provider] - Disposition Disposition (needs filled in before D/C Order can be placed): Home, Self Care
--- NOTE | 2025-03-07 10:10 | PCM.DC.SUM ---
Providers Date of Admission: 03/05/25 Date of Discharge: 03/07/25 Primary Care Physician: Mitali Mcnair, ALEJANDRO Consultations 03/05/25 18:33 Consult: Urology Routine Consulting Provider: Feliz Vna Reason for Consult: right sided testicular mass and pain EMERGENT Consult: No MD Notified: Yes Date Notified: 03/05/25 Time Notified: 18:11 Method of Notification: ED Physician Initiated Reason For Visit: RIGHT-SIDED TESTICULAR PAIN AND MASS Diagnosis Discharge Diagnosis (1) Mass of right testicle: Status: Acute Code(s): N50.89 - Other specified disorders of the male genital organs (2) Pain in right testicle: Status: Acute Code(s): N50.811 - Right testicular pain Plan 19-year-old male admitted with right testicular pain and swelling ongoing for 1 week. Testicular ultrasound showed complex vascular mass. On the day of admission he woke up with increased pain and swelling. # Pain in right testicle most likely due to solid mass in the right testicle: -Ultrasound with complex vascular mass -Per ED note radiologist reported blood flow -Given patient came back to the ED with continued pain Dr. Van recontacted Patient right radical orchiectomy on 03/06/2025. IntraOp finding: Solid mass in the right testicle removed completely right at the radical orchiectomy. Pain control, IV fluid -Supportive care 03/07: Patient was asking for discharge last reading but kept him because of the seriousness of the surgery, right radical orchiectomy. I explained to him that in the immediate postop there is potential chances of a scrotal hematoma or swelling. Scrotal support for 1 week. No exertion/running or lifting heavy. Dr. Van already prescribed [place], [id number] ibuprofen as anti-inflammatory and pain and Tylenol as needed for fever, temperature more than 100.4 Fahrenheit. Follow-up with Dr. Van in 2 weeks. #Tobacco use -Advise cessation -Nicotine replacement available if desired #DVT ppx: SCDs Discharge medication reconciliation done. Discharge follow-up instructions completed. Discharge process discussed with the patient and all questions were answered to patient's satisfaction. Follow with PCP in 1 to 2 weeks Total time spent, exact 35 minutes on discharge meds reconciliation, examination, coordination of care with nurses and ancillary staff, review of imaging and blood test and discussion with the patient on follow-up instructions. Medications at Discharge Home Medications hydrocodone-acetaminophen 5-325mg 5mg-325mg 1 tab PO Q6H PRN PRN Pain 3 days #12 TABLETS 03/05/25 ondansetron 4 mg disintegrating tablet 4 mg PO Q6H PRN nausea and vomiting #12 tabs 03/05/25 sennosides 8.6 mg-docusate sodium 50 mg tablet (Stimulant Laxative Plus) 2 tab PO BID PRN PRN Constipation #0 tabs 03/07/25 Physical Exam Narrative Had right at radical inguinal orchiectomy on 03/06/2025. Mild pain mainly on walking. Scrotal support. Surgical dressing dry Seen and examined. Patient denies prior history of groin surgery or undescended testes. No family history of gonadal cancer. Complain of pain of the right testicle Physical exam General: Alert, Oriented x3, Cooperative HEENT: Atraumatic, PERRLA, EOMI, Normocephalic. Oral: No Gingival or Mucosal Lesions/ Ulcerations Neck: Supple, No JVD, Negative Carotid Bruits Chest wall/Lungs: Air entry equal in bilateral lung bases. No crepitation/rhonchi Cardiovascular: Regular rate and rhythm, Normal S1,S2, No M/G/R Abdomen: Bowel Sounds Present, Soft, Non Tender, Non-Distended : Right orchidectomy. No palpable hematoma in the scrotal sac. Left testis is normal in size, nontender no dysuria. No penile discharge. No renal angle tenderness. No suprapubic tenderness. Extremities: No edema, Capillary Refill Less than 3 Seconds Skin: Surgical dressing is dry. No hematoma Musculoskeletal: No Tenderness to Palpation of Joints or Extremities Neurological: Cranial nerves II-XII grossly intact, DTR 2+/4. No acute focal neurological deficit. Psych/Mental Status: Normal Affect, Appropriate. Weight / BMI Weight Weight: 162 lb Body Mass Index (BMI) 24.6 ABG / Lab / Microbiology Data 03/07/25 06:15 03/06/25 05:12 Laboratory: Laboratory Results - last 24 hr 03/05/25 18:02: Lactate Dehydrogenase Cancelled 03/06/25 05:12: Lactate Dehydrogenase 176 03/07/25 06:15: WBC 15.9 H, RBC 4.37 L, Hgb 12.8 L, Hct 37.7 L, MCV 86.3, MCH 29.3, MCHC 34.0, RDW Std Deviation 41.3, RDW Coeff of Emigdio 13.2, Plt Count 373, MPV 10.5, Immature Gran % (Auto) 0.600, Neut % (Auto) 82.5 H, Lymph % (Auto) 8.2 L, [place] % (Auto) 8.3, Eos % (Auto) 0.1, Baso % (Auto) 0.3, Absolute Neuts (auto) 13.1 H, Absolute Lymphs (auto) 1.30, Nucleated RBC % 0 D/C Instructions Discharge Diet: No restrictions Weight Bearing Status: Weight bearing as tolerated Call your doctor if you observe: Fever of 101 or Higher DC O2, CPAP, BIPAP Needs Home O2 Discharge instructions: No Please Follow Up With: Feliz Van MD When: IN 2 WEEKS Meaningful Use Info Meaningful Use Meaningful Use Diagnoses (Choose all that apply): None applicable Ischemic Stroke Statin Dosing Therapy Reference: STATIN DOSE THERAPY REFERENCE: * Patients > 75 years receive moderate or high dose statin therapy. * Patients 75 years or YOUNGER should receive HIGH intensity statin dose unless contraindicated. You will be required to document reason for non-treatment if statin daily dose does not meet guidelines. HIGH DOSE STATIN THERAPY DAILY Atorvastatin > than or = to 40 mg Rosuvastatin > than or = to 20 mg Amlodipine + Atorvastatin > than or = to 2.5/40 mg Ezetimibe + Simvastatin 10/80 mg Simvastatin 80mg Discharge Plan Admission Admit Date/Time: 03/05/25 18:06 Primary Reason for Your Visit: Right radical orchiectomy Attending Provider: Frankie Moreno Primary Care Provider: Mitali Mcnair NP Consulting Providers: Feliz Van; Felecia Roland Instructions Forms: ED Work / School Excuse Additional Instructions / Restrictions: The ultrasound shows no significant changes from yesterday. The mass is the same size. Call the urologist tomorrow to schedule an appointment. You can take ibuprofen 600 mg every 6 hours. Do not take it more frequently than this. I prescribed hydrocodone which can be taken every 6 hours. This medication can cause nausea, sedation, and constipation. I recommend you take a stool softener like MiraLAX or Dulcolax while using this medicine. Discharge Orders/Prescriptions Prescriptions: New hydrocodone-acetaminophen 5-325 mg tablet 1 tab PO Q6H PRN PRN (Reason: Pain) 3 Days Qty: 12 0RF ondansetron 4 mg tablet,disintegrating 4 mg PO Q6H PRN (Reason: nausea and vomiting) Qty: 12 0RF sennosides-docusate sodium [Stimulant Laxative Plus] 8.6-50 mg Tablet 2 tab PO BID PRN PRN (Reason: Constipation) Qty: 0 0RF Rx Instructions: Available [id number] pain Referrals / Follow Up: Feliz Van MD [Med Staff - Active Staff] - Mitali Mcnair NP, COMMUNITY SUPPORT ASSOCIATE-C [Primary Care Provider] - Disposition Disposition (needs filled in before D/C Order can be placed): Home, Self Care Charges/Coding Visit Charges Inpatient E&M: 05871 Disch Hosp >30min
--- NOTE | 2025-03-07 10:54 | PHA.DC_ITS ---
Pharmacy [facility] Counseling Pharmacy Service has performed discharge medication reconciliation and counseling for this patient. 1. NORCO 5/325MG PO Q6H PRN PAIN 2. ONDANSETRON 4MG PO Q6H PRN NAUSEA/VOMITING 3. SENNA/DOCUSATE 2T PO BID PRN CONSTIPATION The patient's discharge medication list was reviewed for discrepancies and discrepancies were resolved. The patient was counseled on the following discharge medications and changes in medications for homegoing were reviewed. The Reason for Use, instructions for use, and potential side effects were revie wed for all new medications. The patient's questions regarding all of their medications were answered. The patient was able to verbally demonstrate an understanding of their discharge medications. Medications at Discharge Home Medications hydrocodone-acetaminophen 5-325mg 5mg-325mg 1 tab PO Q6H PRN PRN Pain 3 days #12 TABLETS 03/05/25 ondansetron 4 mg disintegrating tablet 4 mg PO Q6H PRN nausea and vomiting #12 tabs 03/05/25 sennosides 8.6 mg-docusate sodium 50 mg tablet (Stimulant Laxative Plus) 2 tab PO BID PRN PRN Constipation #0 tabs 03/07/25
== END 2025-03-07 11:14 | disposition home or self-care (01) ==
LOC: ED 15:50 → MS3 18:03
PROVIDERS: Physician Assistant; Urology; Admitting Provider Internal Medicine; Emergency Provider Emergency Medicine; PCP Registered Nurse; Visit Provider Internal Medicine
DX: C62.11 Malignant neoplasm of descended right testis (principal); F17.210 Nicotine dependence, cigarettes, uncomplicated; F17.290 Nicotine dependence, other tobacco product, uncomplicated
CPT/HCPCS: 54530; 00926; 36415; 76870; 80048; 80053; 81001; 82105; 83615; 85025; 88309; 88341; 88342; 93976; 96361; 96372; 96374; 96375; 96376; 99221; 99283; A4216; G0378; J2405

== ENCOUNTER → 2025-03-28 | Outpatient (CLI) | payer MEDICAID, SELFPAY ==
--- NOTE | 2025-03-28 15:59 | CT_ITS ---
PROCEDURE: CT CHEST, ABD, PEL W/CONTRAST 03/28/2025 REASON FOR EXAM: TESTICULAR CA-IV ONLY TECHNIQUE: Chest, abdomen and pelvis CT with intravenous contrast. Coronal and Sagittal reconstruction series were provided. One or more dose reduction techniques were used (e.g., Automated exposure control, adjustment of the mA and/or kV according to patient size, use of iterative reconstruction technique. PATIENT PREPARATION: Per protocol CONTRAST: 100 mL of Isovue 370 RADIATION DOSE SUMMARY: DLP: 904 mGycm FINDINGS: LUNGS AND PLEURA: No infiltrate. No pleural effusion. No pneumothorax. No pleural thickening. 6 mm nodule within the left lower lobe best seen on series 2, image 64. 5 mm pulmonary nodule within the left lower lobe best seen on series 2, image 70 3 mm pulmonary nodule within the left lower lobe best seen on series 2, image 99 2 mm nodule within the right base best seen on series 2, image 107 MEDIASTINUM: No lymphadenopathy or mass. The heart shows no acute findings. The aorta shows no acute findings. The pulmonary trunk and branches of the vessels in the mediastinum are within normal limits. SUPRACLAVICULAR AND AXILLARY: No abnormalities seen in these regions. No mass or significant lymphadenopathy. The liver, spleen, pancreas, and both adrenal glands demonstrate no acute findings. The gallbladder is contracted. The stomach is unremarkable. The small bowel loops are not dilated. The appendix is normal. No colonic obstruction. Moderate stool burden which may reflect constipation. There is no free air or significant free fluid. The kidneys are unremarkable. The urinary bladder is distended. The pelvic structures are intact. There is no solid pelvic mass. No significant lymphadenopathy. The aorta and IVC demonstrate no acute findings. Visualized osseous structures demonstrate no acute abnormality. CT/CT Chest, Abd, Pel w/Contrast IMPRESSION: Multiple pulmonary nodules as above measuring up to 6 mm. Consider follow-up C T in 3-6 months per Fleischner guidelines. Otherwise, no other evidence of metastatic disease. No lymphadenopathy. Reading Location: [id number]
== END | disposition home or self-care (01) ==
PROVIDERS: PCP Registered Nurse; Referring Provider Internal Medicine Medical Oncology; Visit Provider Internal Medicine Medical Oncology
DX: C62.91 Malignant neoplasm of right testis, unspecified whether descended or undescended (principal)
CPT/HCPCS: 71260; 74177; Q9967

== ENCOUNTER → 2025-04-05 | Outpatient (CLI) | payer MEDICAID, SELFPAY ==
--- NOTE | 2025-04-05 13:56 | MRI_ITS ---
PROCEDURE: BRAIN W/WO CONTRAST 04/05/2025 REASON FOR EXAM: TESTICULAR CA/CONFUSION TECHNIQUE: BRAIN W/WO CONTRAST Multiplanar and multisequence images were obtained. CONTRAST: Clar[place] VOLUME: 15 mL intravenous. COMPARISON: None. FINDINGS: Brain: Normal signal intensities. No orbital pathology is noted. Bilateral internal auditory canals appear symmetric and within the normal range. Diffusion: Diffusion-weighted images demonstrate no area of restricted diffusion. Ventricles: Normal. Sinuses: Mild mucosal thickening is seen of the bilateral maxillary sinuses, minimal of the bilateral ethmoid air cells. No air-fluid level is noted. Mastoids: Clear. Other: Following intravenous contrast administration, no area of abnormal enhancement is seen MRI/Brain W/WO Contrast IMPRESSION: 1. Chronic paranasal sinus disease. 2. No intracranial abnormality is noted. Reading Location: [place] [id number]
== END | disposition home or self-care (01) ==
LOC: OPMRI 13:55
PROVIDERS: PCP Registered Nurse; Referring Provider Internal Medicine Medical Oncology; Visit Provider Internal Medicine Medical Oncology
DX: C62.91 Malignant neoplasm of right testis, unspecified whether descended or undescended (principal); R41.0 Disorientation, unspecified
CPT/HCPCS: 70553; A9575

== ENCOUNTER 2025-05-11 13:14 | Emergency (ER) | payer MEDICAID, SELFPAY ==
[2025-05-11 13:16] VITALS: BP 141/90; PULSE 84; RESP 16; TEMP 36.9; O2SAT 100; BMI 24.7
--- NOTE | 2025-05-11 13:41 | ED.RN ---
Pt acknowledges having a bad day earlier and having suicidal indentions. Per police pt posted messages on social media saying goodbye to family and friends with instructions on how to disperse belongings. Social messages included pictures of gun on pt's lap. Police state pt was found with gun and lots of bullets. Per police pt's mother and brother recently, and pt was also diagnosed with testicular cancer. Today while pt was at work he had negative interactions with another coworker which caused today's incidents. Pt asks if he has to stay all night stating, I hope not, I have plans tonight. Pt states they are good plans Pt reluctant to change into hospital gown but does comply at this time.
[2025-05-11 13:52] LABS: Hematocrit 38.6 % (40-54); Hemoglobin 13.4 g/dL (13.0-16.5); Immature Granulocytes Count 0.020 X10^3/uL (0.0-0.0); Mean Corp Hgb Conc 34.7 g/dL (32-36); Mean Corpuscular Volume 81.4 fL (80-94); Mean Platelet Vol. 9.5 fl (6.2-12.0); NRBC Flagged by Analyzer 0 % (0-5); Platelet Count 340 K/mm3 (150-450); RBC Distribution Width CV 12.6 % (11.6-14.6); RBC Distribution Width SD 37.6 fl (35.1-43.9); Red Blood Count 4.74 M/mm3 (4.6-6.2); White Blood Count 6.4 K/mm3 (4.4-11.0)
--- NOTE | 2025-05-11 14:11 | CM.ED ---
Social work Miriam [place] from [facility] (ph: [phone]) called SW to provide information on patient prior to patient's arrival. Per Miriam, Miriam spoke with patient's friend Honey (ph: [phone]) who reportedly stated patient had been placing pictures on social media with guns and making suicidal comments this morning. Miriam also stated to this SW that patient lives with patient's father, Mingo, but this living situation is not a positive one. Miriam stated Mingo's phone number is [phone]. Patient may reportedly try to minimize things, but patient also reportedly has access to many firearms, collects them, and has been unwilling to take safety measures with firearms in the past. SW talked with [facility]'s deputy who presented to [facility] ED with patient and a pink slip. [place] stated concern for patient due to the reasons stated above. Per triage notes, patient also has testicular cancer and is unwilling to allow family into patient's appointments. Per deputy, the firearm patient had on patient today was removed and given to patient's grandmother. [place] was uncertain how reliable patient's grandmother was in keeping this firearm and other firearms away from patient. Miriam [place] from [facility] presented to [facility] ED and stated willingness to complete patient's mental health assessment due to already being involved in patient's situation in the community. Plan: [facility] to assess; SW to be available as needed. Mini Bah, BINDING PRINTER, AUTO MECHANIC
[2025-05-11 14:25] LABS: Anion Gap 11 (5-15); BUN 15 mg/dL (4-19); BUN/Creat Ratio 17.7 RATIO (10-20); Calcium,Total 9.4 mg/dL (7.6-11.0); Carbon Dioxide 25.9 mmol/L (21.0-32.0); Chloride 101 mmol/L (98-108); Estimated Creatinine Clearance 133.45 ml/min (50-250); Glucose 79 mg/dL (70-99); Potassium 4.2 mmol/L (3.3-5.1)
[2025-05-11 14:26] LABS: Alcohol, Blood (Medical)-Serum < 10.1 mg/dL (<=10.0)
[2025-05-11 14:27] LABS: Barbiturate Urine NEGATIVE (< 200 ng/mL); Benzodiazepine Urine NEGATIVE (< 200 ng/mL); PCP Urine NEGATIVE (< 25 ng/mL); THC Urine NEGATIVE (< 50 ng/mL)
--- NOTE | 2025-05-11 14:40 | ED.RN ---
family disclosed they found ketamine, fentynal, and kreon
[2025-05-11 15:28] VITALS: BP 139/91; PULSE 87; RESP 16; O2SAT 98
--- NOTE | 2025-05-11 15:30 | ED.RN ---
Family stopped this RN in hallway to discuss pt drug use. family states that pt uses ketamine and fentanyl. found syringes in his room, also taking kratum pills. [facility] notified.
[2025-05-11] MEDS: Nicotine (PBKC) 14 MG Patch TD (15:37)
--- NOTE | 2025-05-11 15:46 | EDS_ITS ---
HPI History of Present Illness Chief Complaint: Suicidal Narrative Narrative: Patient is a 20-year-old male with past medical history anxiety, depression who presented to the emergency department with a chief complaint of suicidal ideation. Patient today had thoughts of killing himself with a gun and he states that he left work wrote a suicide note prior to this and that took one of his guns with him to a fishing hole. He states that after thinking about this he decided to come here to be evaluated further. He states that he does not have much support and has lost several family members recently as well. [facility] Medical History Pain in right testicle Smoker Depression Anxiety Home Medications ?Medication ?Instructions ?Recorded ?Last Taken ?Type NK 04/04/25 Unknown History Allergy/AdvReac Type Severity Reaction Status Date / Time No Known Allergies Allergy Verified 05/11/25 13:16 Family History Grandmother Breast cancer Aunt Breast cancer Uncle Cancer Surgical History Status post open reduction and internal fixation (ORIF) of fracture Social History Smoking Status: Current every day smoker tobacco type: cigarettes and e- cigarettes alcohol intake: current alcohol intake frequency: a few times a month substance use type: marijuana ROS ROS ED ROS Narrative Constitutional: Denies fevers, chills, headaches, lightness, dizziness Eyes: Denies double vision blurry vision changes vision Cardiovascular: Denies chest pain Respiratory: Denies shortness of breath Abdomen: Denies abdominal pain nausea vomit diarrhea : Denies any urinary symptoms Neurological: Denies numbness, weakness, tingling Musculoskeletal: Denies back pain Psychiatric: Complains of suicidal ideation as noted above denies homicidal ideation Skin: Denies any rashes or lesions EXAM Physical Exam Narrative Exam Narrative: General: Patient was lying in bed rest comfortably did not appear to be in acute distress Head: Atraumatic, normocephalic Eyes: PERRL bilaterally, EOMI bilaterally, no conjunctival injection noted Neck: Soft, supple, trachea midline Cardiovascular: Regular rate and rhythm no murmurs gallops rubs noted Respiratory: Clear to auscultation bilaterally no rales rhonchi or wheezes noted Abdomen: Soft, nondistended, no tenderness palpation Extremities: +5/5 strength noted in the bilateral lower extremities Neurological: Patient following commands knew that he was at [facility] year is 2024 Skin: Warm, dry, tact no rashes or lesions noted Const Vital Signs: 05/11/25 13:16 05/11/25 15:28 05/11/25 16:49 Temperature 98.4 F Temperature Source Oral Pulse Rate 84 87 60 Respiratory Rate 16 16 Blood Pressure 141/90 H 139/91 H 127/81 H Blood Pressure Mean 107 107 96 Pulse Ox 100 98 97 Oxygen Delivery Method Room Air Room Air Room Air MDM MDM MDM Narrative Medical decision making narrative: Patient is a 20-year-old male who presented to the emergency department the chief complaint of suicidal ideation. On the differential diagnose includes Melamin to anxiety, depression, suicidal ideation. Patient CBC reviewed showed no evidence leukocytosis white blood count normal at 6.4, hemoglobin 13.4, platelet count of 340. Patient sodium was 138, potassium normal 4.2, creatinine was noted to be normal at 0.84. Patient drug screen negative alcohol level less than 10. Patient medically cleared and will be placed into psychiatric facility for stabilization. Patient still pending placement will be signed out to oncoming provider for ultimate disposition see addendum further details. Lab Data Labs: Laboratory Results - last 24 hr 05/11/25 13:29 WBC 6.4 RBC 4.74 Hgb 13.4 Hct 38.6 L MCV 81.4 MCH 28.3 MCHC 34.7 RDW Std Deviation 37.6 RDW Coeff of Emigdio 12.6 Plt Count 340 MPV 9.5 Immature Gran % (Auto) 0.300 Neut % (Auto) 52.1 Lymph % (Auto) 30.8 [place] % (Auto) 11.3 H Eos % (Auto) 4.1 Baso % (Auto) 1.4 H Absolute Neuts (auto) 3.3 Absolute Lymphs (auto) 1.96 Nucleated RBC % 0 Sodium 138 Potassium 4.2 Chloride 101 Carbon Dioxide 25.9 Anion Gap 11 BUN 15 Creatinine 0.84 Estim Creat Clear Calc 133.45 Est GFR (MDRD) Non-Af 126 BUN/Creatinine Ratio 17.7 Glucose 79 Calcium 9.4 Urine Opiates Screen NEGATIVE U Buprenorphine Qual NEGATIVE Ur Oxycodone Screen NEGATIVE Urine Methadone Screen NEGATIVE Urine Fentanyl Screen NEGATIVE Ur Barbiturates Screen NEGATIVE Ur Phencyclidine Scrn NEGATIVE Ur Amphetamines Screen NEGATIVE U Benzodiazepines Scrn NEGATIVE Urine Cocaine Screen NEGATIVE U Cannabinoids Screen NEGATIVE Ethyl Alcohol < 10.1 Discharge Plan Triage Chief Complaint: Suicidal ED Provider: Kobe Pisano Dx/Rx/DC Orders Clinical Impression: Suicidal ideation, Anxiety and depression Prescriptions: No Action NK Primary Care Provider: Mitali Mcnair NP Referrals: Mitali Mcnair NP, OFFICE AUTOMATION CLERK-C [Primary Care Provider] - Print Language: Kiswahili
--- NOTE | 2025-05-11 16:31 | ED.RN ---
Reports taking Kratom approx every 2 hours. States last time he took Kratom was 1100.
[2025-05-11 16:49] VITALS: BP 127/81; PULSE 60; O2SAT 97
--- NOTE | 2025-05-11 17:52 | PCA ---
THIS US TOOK ACCEPTING INFO FROM [facility] N2N:[phone]. PHYSICIANS CALLED AND SAID 3-4 HOURS TO TRANSPORT AND WILL TRY TO OUTSOURCE
--- NOTE | 2025-05-11 18:30 | ED.RN ---
Report called to [facility].
[2025-05-11 18:31] VITALS: BP 127/81; PULSE 60; RESP 16; TEMP 36.9; O2SAT 97
--- OUTSIDE RECORDS SUMMARY | 2025-05-11 21:25 | XMS RPT_ITS | CCD ---
Author Organization [facility] [place] [facility] Care Team Providers Care Warp Clamper Name Role Phone Vasquez Moctezuma Primary Care Provider [phone] Prakash Zhao MD Primary Care Provider [phone] JOSE ELIAS CALVIN, VASQUEZ Arevalo Primary Care Physician Unavailable Primary Care Provider UnavailOMAR Carrillo Attending Unavailable No, PCP Primary Care Unavailable PROVIDER, UNKNOWN Referring Unavailable Davida GUERRA Attending Linus crabtree No, PCP Primary Care Unavailable PROVIDER, UNKNOWN Referring Unavailable No, PCP Primary Care Unavailable PROVIDER, UNKNOWN Referring Unavailable Hilario Melchor Attending Unavailable PHYSICIAN, NONE Primary Care Physician Unavailab MANGO Horowitz DO Attending Unavailable PHYSICIAN, NONE Primary Care Unavailable OXANA CALVIN, PAMELA Antoine Attending Unavail able JOSE ELIAS CALVIN, VASQUEZ Arevalo Primary Care Unavailable SOHAM CALVIN, DR HASSNA Attending Unavailab le PHYSICIAN, NONE Primary Care Unavailable MARILEE CALVIN, DR JUANA Arevalo Attending Unavailable JOSE ELIAS CALVIN, VASQUEZ Arevalo Primary Care Unavailable Prakash Zhao MD Primary Care Provider [phone] PRAKASH ZHAO Primary Care Unavailable PRAKASH ZHAO Primary Care Unavailable PRAKASH ZHAO Primary Care Unavailable LAVERNE ZAMBRANO Referring Unavailable PRAKASH ZHAO Primary Care Unavailable PRAKASH ZHAO Primary Care Unavailable PRAKASH ZHAO Primary Care Unavailable PRAKASH ZHAO Referring Unavailable PRAKASH ZHAO Attending Unavailable PRAKASH ZHAO Primary Care Unavailable VIDHI CHOCOLATE FINISHER OPERATOR-RETAIL EVENT AND SALES ASSISTANT, MITALI A Primary Care Physi carlitos Unavailable Primary Care Provider Unavailcésar Alvarado MD, Dr. Wesley Emergency Provider Vidhi SUMMER SESSIONS DIRECTOR-C, Mitali Primary Care Provider Aby CHOCOLATE FINISHER OPERATOR.RETAIL EVENT AND SALES ASSISTANT, Megan M Unavailable MEHRDAD CHOCOLATE FINISHER OPERATOR-RETAIL EVENT AND SALES ASSISTANT, DARREN Gonzales Attending Unavai leyda MOSHER CHOCOLATE FINISHER OPERATOR-RETAIL EVENT AND SALES ASSISTANT, MITALI A Primary Care Un available DELL MARSHALL, REG Attending Unavailable VIDHI CHOCOLATE FINISHER OPERATOR-RETAIL EVENT AND SALES ASSISTANT, MITALI A Primary Care Un available SARBJIT CALVIN, DR KIARA Koenig Attending Unavailcésar MOSHER CHOCOLATE FINISHER OPERATOR-RETAIL EVENT AND SALES ASSISTANT, MITALI A Primary Care Un available Christiano CALVIN, Dr. Wesley Attending Provider Norris MARSHALL, Dr. Bullock Referring Provider Norris MARSHALL, Dr. Bullock Emergency Provider Luan CALVIN, Dr. Izquierdo Admit Provider Luan CALVIN, Dr. Izquierdo Other Provider Rehan CALVIN, Dr. Feliz Tamayo Other Provider Josh CALVIN, Dr. David Attending Provider Josh CALVIN, Dr. David Other Provider Norris MARSHALL, Dr. Bullock Attending Provider Rehan CALVIN, Dr. Feliz Tamayo Referring Provider Boy CALVIN, Dr. Gross Attending Provider [phone] Boy CALVIN, Dr. Gross Referring Provider PRAKASH ZHAO Primary Care Unavailable GIRMA BOYD Attending Unavailable Boy CALVIN, Dr. Gross Referring Provider Vidhi SUMMER SESSIONS DIRECTOR-C, Mitali Referring Provider [phone] Felecia Roland Admitting Unavailable Feliz Van Consulting Unavailable Vidhi SUMMER SESSIONS DIRECTOR, Mitali Primary Care UnavailFrankie Morgan Attending Unavailable Felceia Roland Consulting Unavailable Frankie Moreno Consulting Unavailable Care Physician, No Primary Primary Care Unava ilable Jacques Paul Attending Unavailable Vidhi SUMMER SESSIONS DIRECTOR, [facility] Unavailabl e Renato Brunosn Referring Unavailable PraRenato collier Attending Unavailable Felecia Roland Attending Unavailable Felecia Roland Consulting Unavailable Care Physician, No Primary Primary Care Unava ilable Felecia Roland Admitting Unavailable Yuriy Ding Consulting Unavailabl Yvette Merino Attending Unavailable Yvette Nieto Consulting Unavailable Felecia Roland Admitting Unavailable Feliz Van Consulting Unavailable Vidhi SUMMER SESSIONS DIRECTOR, [facility] Unavailabl Frankie Hunter Attending Unavailable Felecia Roland Consulting Unavailable Vidhi SUMMER SESSIONS DIRECTOR, [facility] Unavailabl e Prah, Renato Referring Unavailable Prah, Renato Attending Unavailable Boy, Renato Attending Unavailable Renato Brunson Referring Unavailable Vidhi SUMMER SESSIONS DIRECTOR, [facility] Unavailcésar e Felecia Roland Consulting Unavailable Care Physician, No Primary Primary Care Unava ilable Yvette Nieto Attending Unavailable Felecia Roland Admitting Unavailable Yuriy Ding Consulting Unavailabl e Prah, Renato Attending Unavailable Vidhi SUMMER SESSIONS DIRECTOR, [facility] Unavailabl elina Mosher SUMMER SESSIONS DIRECTOR, Felt Referring Unavailabl elina Mosher SUMMER SESSIONS DIRECTOR, [facility] Unavailabl Lupillo Bess Attending Unavailable Kobe Pisano Referring Unavailable Kobe Pisano Attending Unavailable Vidhi SUMMER SESSIONS DIRECTOR, [facility] Unavailabl e Care Physician, No Primary Primary Care Unava ilable Lupillo Alvarado Attending Unavailable Feliz aVn Referring Unavailable Vidhi SUMMER SESSIONS DIRECTOR, [facility] Unavailabl e Prah, Renato Attending Unavailable Vidhi SUMMER SESSIONS DIRECTOR, [place]elt Referring Unavailabl e Prah, Renato Attending Unavailable Vidhi SUMMER SESSIONS DIRECTOR, [facility] Unavailabl elina Mosher SUMMER SESSIONS DIRECTOR, Felt Referring Unavailabl e Boy, Renato Attending Unavailable Vidhi SUMMER SESSIONS DIRECTOR, [facility] UnavailFelecia Morgan Admitting Unavailable Felecia Roland Attending Unavailable Vidhi SUMMER SESSIONS DIRECTOR, [facility] UnavailFelecia Morgan Consulting Unavailable Medications Current Medications Medication Drug Class(es) [...] hydrochloride 150 mg extended release oral tablet (6 sources) Aminoketone Start: 03-03-2024 End: 04-02-2024 take [...] 0 Refill(s) Start Date: 04/17/22 Status: Ordered 0.3 ml enoxaparin sodium 100 mg/ml prefilled syringe (1 source) Low Molecular Weight Heparin Start: 06-17-2022 enoxaparin Sodium (LOVENOX) injection 30 mg levoFLOXacin 500 mg oral tablet (1 source) [...] food/milk, # 30 tab(s), 0 Refill(s), Pharmacy: [facility]/pharmacy #[id number], Right wrist pain, 175, cm, 08/11/24 [...] 1 miconazole nitrate 0.02 mg/mg topical powder (9 sources) Azole Antifungal Start: 01-29-2024 miconazole (LOTRIMIN AF) 2 % powder Indications: Tinea pedis of both feet Apply 1 application to affected area once daily. 85 g 01/29/2024 Active [place] (Nk) (4 sources) Start: 04-04-2025 [place] (Nk) Active April 04, 2025 12:00am ondansetron (ZOFRAN-ODT) disintegrating tablet 4 mg (1 [...] Class(es) Dates Sig (Normalized) Sig (Original) acetaminophen 325 mg / HYDROcodone bitartrate 5 mg oral tablet (8 sources) Opioid Agonist Start: 03-05-2025 End: 03-27-2025 Hydrocodone-Acetam inophen 5-325 mg tablet Discontinued 1 {tbl} PO EVERY 6 HOURS NEEDED as needed for Pain 12 3 0 March 05, 2025 March 27, 2025 1:57pm Pain in right testicle Right testicular pain amoxicillin 875 mg / clavulanate 125 mg oral tablet (10 sources) Penicillin-class Antibacterial Start: 06-02-2024 End: 01-29-2025 Amoxicillin-Pot Clavulanate 875-125 mg tablet Discontinued 1 {tbl} PO TWICE A DAY 20 June 02, 2024 12:00am January 29, 2025 [...] days 40 capsule 0 06/18/2022 06/28/2022 Active docusate sodium 50 mg / sennosides, half-way 8.6 mg oral tablet (11 sources) Start: 03-07-2025 End: 03-27-2025 Sennosides-Docusate Sodium (Stimulant Laxative Plus) 8.6-50 mg Tablet Discontinued 2 {tbl} PO TWICE DAILY NEEDED as needed for Constipation 0 0 March 07, 2025 12:00am March 27, 2025 1:57pm Available rvxu-yeu-orsomdc pain Start: 06-18-2022 take 2 tablets by mo uth once daily as needed for constipation sennosides-docusate sodium (SENOKOT-S) 8.6-50 MG tablet Take 2 tablets by mouth daily as needed for Constipation 60 tablet 0 06/18/2022 Active Start: 06-18-2022 sennosides-doc usate sodium (SENOKOT-S) 8.6-50 MG tablet 2 tablet escitalopram 10 mg oral tablet (3 sources) Serotonin Reuptake Inhibitor Start: 08-11-2024 End: 11-09-2024 escitalopram 10 mg oral tablet Dose : 10 mg = 1 tab(s), Oral, qDay, # 90 tab(s), 0 Refill(s), Pharmacy: [facility]/pharmacy #[id number], Anxiety, 175, cm, 08/11/24 13:41:00 EST, Height, kg, 08/11/24 13:41:00 EST, Dosing Weight Start Date: 08/11/24 Stop Date: 11/09/24 Status: Ordered Quantity: 90.0 Unit: tab(s) Repeat number: 1 Indications: Anxiety disorder, unspecified; gabapentin 100 mg oral capsule (20 sources) Anti-epileptic Agent Start: 03-24-2025 End: 03-27-2025 take 1 capsule by mouth three times daily Gabapentin 100 mg capsule Discontinued 100 mg PO THREE TIMES A DAY March 24, 2025 12:00am March 27, 2025 1:57pm Start: 02-08-2025 End: 03-10-2025 take 1 capsule by mouth three times daily Gabapentin 100 mg capsule Discontinued 100 mg PO THREE TIMES A DAY March 05, 2025 12:00am March 05, 2025 6:05pm Start: 06-17-2022 End: 06-28-2022 take 1 capsule by mouth three times daily gabapentin (Neurontin) 100 MG capsule TAKE 1 CAPSULE BY MOUTH 3 TIMES DAILY FOR 10 DAYS. 30 capsule 06/18/2022 Active ibuprofen 400 mg oral tablet (20 sources) Nonsteroidal Anti-inflammatory Drug Start: 06-02-2024 End: [...] mg/ml injection (1 source) Opioid Agonist Start: 06-21-20 End: 06-21-20 morphine sulfate (PF) injection 4 mg ondansetron 4 mg disintegrating oral tablet (11 sources) Serotonin-3 Receptor Antagonist Start: 03-05-20 End: 03-27-20 take 1 tablet by mouth every six hours as needed for nausea and vomiting Ondansetron 4 mg tablet,disintegratin g Discontinued 4 mg PO EVERY 6 HOURS as needed for nausea and vomiting 12 0 March 05, 2025 12:00am March 27, 2025 1:57pm Start: 06-21-2022 End: 06-21-2022 ondansetron (ZOFRAN) injecti on 4 mg Start: 06-21-2022 take 1 tablet by jose th three times daily as needed for nausea ondansetron (ZOFRAN) 4 MG tablet Take 1 tablet by mouth 3 times daily as needed for Nausea or Vomiting 30 tablet 0 06/21/2022 Active oxyCODONE hydrochloride 5 mg oral tablet (13 sources) Opioid Agonist Start: 06-02-2024 End: 01-29-2025 [...] IVPB extended infusion (premix) polyethylene glycol 3350 38456 mg powder for oral solution (1 source) Osmotic Laxative Start: 06-17-2022 17 g, Oral, DAILY, First dose on Thu06/17/22 at 1045, Until Discontinued Stir and dissolve one packet of powder (17 g) in any 4 to 8 ounces of beverage (cold, hot or room temperature) then drink predniSONE 20 mg oral tablet (12 sources) Start: 05-27-2024 End: 06-02-2024 take 2 [...] Status: Ordered sertraline 25 mg oral tablet (12 sources) Serotonin Reuptake Inhibitor Start: 01-29-2025 End: 03-05-2025 take 1 tablet by mouth at bedtime Sertraline (Zoloft) 25 mg tablet Discontinued 25 mg PO AT BEDTIME 30 0 January 29, 2025 12:00am March 05, 2025 3:28pm Start: 09-28-2024 End: 10-28-2024 sertraline 25 mg oral tablet Dose : 25 mg = 1 tab(s), Oral, qDay, # 30 tab(s), 0 Refill(s), Pharmacy: [facility]/pharmacy #[id number], Generalized anxiety disorder, 173.3, cm, 09/28/24 [...] Da te Episodic/Chronic Acute and chronic tonsillitis (10 sources) Acute tonsillitis; Translations: [Acute tonsillitis, unspecified] 06-02-2024 Episodic Anxiety disorders (2 sources) Generalized anxiety disorder 09-28-2024 Chronic Cancer of testis (20 sources) Non-seminomatous germ cell neoplasm of testis; Translations: [Malignant neoplasm of unspecified testis, unspecified whether descended or undescended] Onset: 5 03-27-2025 Chronic Comment on above: Discussed nonseminom atous testicular cancer, staging with CT scan and tumor markers. Patient agrees to proceed. Non-seminoma pT1b cN 0 stage I.Discussed non-seminomatous testicular cancer.CT c/a/p showed Lung nodules, no adenopathy. He had Lung nodules in 2021. Non-seminoma pT1b cN 0 M0 stage I.Discussed non-seminomatous testicular cancer.CT c/a/p showed Lung nodules, no adenopathy. He had Lung nodules in 2021.Discussed preferred management which is observation, RPLND and Chemotherapy. My recommendation is observation. 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 Low risk diseaseDiscussed non-seminomatous testicular cancer.CT c/a/p showed Lung nodules, no adenopathy. He had Lung nodules in 2021.Discussed preferred management which is observation, RPLND and Chemotherapy. My recommendation is observation. Pt agreed. Chronic obstructive pulmonary disease and bronchiectasis (1 source) Bronchitis; Translations: [Bronchitis, not specified as acute or chronic] Onset: 3 Episodic Diseases of white blood cells (11 sources) Leukocytosis; Translations: [Elevated white blood cell [...] [Other fatigue] Onset: 2 Episodic Mood disorders (10 sources) Depressive disorder; Translations: [Depression] 01-29-2025 Chronic [...] other orthopedic aftercare] Episodic Other circulatory disease (10 sources) Elevated blood-pressure reading without diagnosis of [...] Cough; Translations: [Subacute cough] 03-18-2024 Episodic Other lower respiratory disease (11 sources) Multiple nodules of lung; Translations: [Other nonspecific abnormal finding of lung field] 04-04-2025 Episodic Comment on above: He had Lung nodules in 2019. He had Lung nodules in 2019. CT from 2020 reviewed, showed nodules which the same size as current CT. Other lower respiratory disease (2 sources) Other nonspecific abnormal finding of lung field; Translations: [Other nonspecific abnormal finding of lung field] Onset: 5 Episodic Other male genital disorders (16 sources) Testicular mass; Translations: [Other specified disorders of the male genital organs] 03-04-2025 Episodic Other male genital disorders (16 sources) Pain of right testicle; Translations: [Right testicular pain] 03-04-2025 Episodic Other male genital disorders (2 sources) Other specified disorders of the male genital organs; Translations: [Other specified disorders of the male genital organs] Onset: 5 Episodic Other male genital disorders (2 sources) Right testicular pain; Translations: [Right testicular pain] [...] Onset: 2 Episodic Other upper respiratory infections (15 sources) Sore throat symptom; Translations: [Acute pharyngitis, unspecified] Onset: 5 Episodic Residual codes; unclassified (1 source) Early satiety; Translations: [Early satiety] Episodic Residual codes; unclassified (6 sources) History of alcohol abuse; Translations: [Personal history of other specified conditions] Onset: 4 03-03-2024 Episodic Residual codes; unclassified (11 sources) Confusional state; Translations: [Disorientation, unspecified] 04-04-2025 Episodic Comment on above: MRI brain was negati ve. Spondylosis; intervertebral disc disorders; other back problems (3 sources) Nerve root disorder; Translations: [Radiculopathy, site unspecified] Onset: 5 Episodic Substance-related disorders (8 sources) Tobacco user; Translations: [Nicotine dependence, unspecified, uncomplicated] Onset: 4 03-03-2024 Chronic Suicide and intentional self-inflicted injury (10 sources) Suicidal thoughts; Translations: [Suicidal ideations] 01-29-2025 Episodic Unclassified (1 source) Contact with and (suspected) exposure to COVID-19; Translations: [Contact with and (suspected) exposure to COVID-19] Onset: 2 Unclassified (2 sources) Injury of right wrist 09-28-2024 Viral infection (14 sources) Viral disease; Translations: [Viral infection, unspecified] Onset: 5 02-29-2024 Episodic Past or Other Problems Problem Classification Problem Date Documented Da te Episodic/Chronic Residual codes; unclassified (2 sources) Personal history of other specified conditions; 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, in remission] Onset: 03-03-2024 03-03-2024 Episodic Skin and subcutaneous tissue infections (11 sources) Abscess of neck; Translations: [Cutaneous abscess of neck] Onset: 06-02-2024 06-04-2024 Episodic Unclassified (1 source) Contact with and (suspected) exposure to COVID-19; Translations: [Contact with and (suspected) exposure to COVID-19] Onset: 06-21-2022 Results Test Name Value Interpretation Reference Range Facility AFP, Tumor Markeron 05-04-20 25 AFP TUMOR ANGELA 2.4 ng/mL Normal 0.0-5.7 [facility] Comment on above: Order Comment: N Result Comment: [facility] [employer] Electrochemiluminescence Immunoassay (ECLIA) Values obtained with different assay methods or kits cannot be used interchangeably. Results cannot be interpreted as absolute evidence of the presence or absence of malignant disease. This test is not interpretable in females. Performed at: [address] [id number] Private Branch Exchange Service Adviser: Luis Rubio PhD, Phone: [phone] Performed By: #### L [id number], [id number], L3300.0700 ####[facility] [id number] [facility] [place], [place], [id number] HCG BETA-SUBUNIT QUANT.on HCG B-SUBUNIT < 1 Normal 0-3 [facility] Comment on above: Result Comment: Abdi antoine ECLIA methodology Performed at: [address] [id number] Private Branch Exchange Service Adviser: Luis Rubio PhD, Phone: [phone] Performed By: #### L [id number], [id number], [id number] ####[facility] [id number] [facility], [address] LDHon 05-03-2025 LDH 154 U/L Normal 87-241 [facility] Comment on above: Order Comment: 1 Performed By: #### L [id number], [id number], [id number] #### [facility] [address] [place], [address] Oncology Visit Reporton 04-08 Oncology Visit Report [facility] [address] [place] [address] OFFICE VISIT Date of Service: 05/03/25 0902 MR#: [id number] Acct: [id number] Name: JESSICA BARR Rep #: [id number] : 2005 From: Renato Brunson MD Age/Sex: 20/M Location: [facility] Status: Signed HPI Subjective Date of Service 05/03/25 Chief Complaint F/u for Testicular cancer. History of Present Illness 20-year-old man presented to the [facility] ER with right testicular pain. Ultrasound on 03/04/2025 showed complex vascular mass within the right testicle measuring 3.2 cm. He underwent right radical orchiectomy on 03/06/2025. 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 LDH on 03/06/2025 was 176. Alpha-fetoprotein on 03/07/2025 was 234. He was referred for further evaluation and management. CT on showed multiple bilateral pulmonary nodules, no adenopathy. He had episodes of confusion and inability to concentrate so MRI of brain was requested which was negative on 04/05/2025. Comes for follow up to discuss disease and chemotherapy. Feeling well. [facility] Medical History Pain in right testicle Smoker Depression Anxiety Surgical History Status post open reduction and internal fixation (ORIF) of fracture Family History Grandmother Breast cancer Aunt Breast cancer Uncle Cancer Social History Smoking Status: Current every day smoker tobacco type: cigarettes and e-cigarettes alcohol intake: current alcohol intake frequency: a few times a month substance use type: marijuana Intake Vital Signs 04/11/25 14:12 05/03/25 09:04 Height 5 ft 8 in 5 ft 8 in Weight: 72.83 kg 72.575 kg BMI 24.4 24.3 BP 115/63 117/68 Blood Pressure Location Lt brachial Lt brachial Position Sitting Sitting Respiration 18 18 Pulse 56 L 58 L Pulse Source Monitor Monitor Temp 98.1 F 98.9 F Temperature Source Temporal Artery Temporal Artery Pulse Oximetry (%) 99 98 Oxygen Delivery Method room air room air Intake Accompanied by: Self Is patient in pain?: No Allergies No Known Allergies Allergy (Verified 05/03/25 09:05) Medications ???Medication ???Instructions ???Recorded ???Confirmed ???Type NK 04/04/25 05/03/25 History Central Venous Access Central Venous Access: No Exam Physical Exam Const alert, oriented x3 and no apparent distress Coding Level of Care Code Off vis,est,level 3 Exam Problem Focused Diagnoses Non-seminomatous cancer of right testis C62.91 Laterality: right Lung nodules R91.8 Assessment and Plan Assessment and Plan (1) Non-seminomatous testicular cancer: Status: Acute Qualifiers: Laterality: right Qualified Code(s): C62.91 - Malignant neoplasm of right testis, unspecified whether descended or undescended Comment: Non-seminoma pT1b cN0 M0 stage I. Low risk disease Discussed non-seminomatous testicular cancer. CT c/a/p showed Lung nodules, no adenopathy. He had Lung nodules in 2021. No evidence of disease clinically. Discussed preferred management which is observation, RPLND and Chemotherapy again. My recommendation is observation. Pt agreed. Plan: To continue observation. To obtain alpha-fetoprotein and beta-hCG with LDH in 3 months. (2) Lung nodules: Status: Chronic Comment: He had Lung nodules in 2019. CT from 2019 reviewed, showed nodules which the same size as current CT. Plan: To continue observation. Orders: Orders LDH Today C62.91 - Malignant neoplasm of right testis, unspecified whether descended or undescended AFP, Tumor Marker Today C62.91 - Malignant neoplasm of right testis, unspecified whether descended or undescended HCG BETA-SUBUNIT QUANT. Today C62.91 - Malignant neoplasm of right testis, unspecified whether descended or undescended LDH 07/19/25 C62.91 - Malignant neoplasm of right testis, unspecified whether descended or undescended AFP, Tumor Marker 07/19/25 C62.91 - Malignant neoplasm of right testis, unspecified whether descended or undescended HCG BETA-SUBUNIT QUANT. 07/19/25 C62.91 - Malignant neoplasm of right testis, unspecified whether descended or undescended Plan Details Follow Up: 3 Months 05/03/25 1732 Date Renato Brunson MD Cosigner Signature: Date (if applicable) CC: ALEJANDRO Mosher Normal [facility] Oncology Visit Reporton Oncology Visit Report [facility] [address] [place] [id number] OFFICE VISIT Date of Service: 04/11/25 1412 MR#: [id number] Acct: [id number] Name: JESSICA BARR Rep #: [id number] : 2005 From: Renato Brunson MD Age/Sex: 19/M Location: [facility] Status: Signed HPI Subjective Date of Service 04/11/25 Chief Complaint F/u for Testicular cancer. History of Present Illness 19-year-old man presented to the [facility] ER with right testicular pain. Ultrasound on 03/04/2025 showed complex vascular mass within the right testicle measuring 3.2 cm. He underwent right radical orchiectomy on 03/06/2025. 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 LDH on 03/06/2025 was 176. Alpha-fetoprotein on 03/07/2025 was 234. He was referred for further evaluation and management. CT on showed multiple bilateral pulmonary nodules, no adenopathy. He had episodes of confusion and inability to concentrate so MRI of brain was requested, comes for follow up. Feeling well. [facility] Medical History Pain in right testicle Smoker Depression Anxiety Surgical History Status post open reduction and internal fixation (ORIF) of fracture Family History Grandmother Breast cancer Aunt Breast cancer Uncle Cancer Social History Smoking Status: Current every day smoker tobacco type: cigarettes and e-cigarettes alcohol intake: current alcohol intake frequency: a few times a month substance use type: marijuana Intake Vital Signs 04/04/25 14:20 04/11/25 14:12 Height 5 ft 8 in 5 ft 8 in Weight: 72.83 kg BMI 24.4 BP 115/63 Blood Pressure Location Lt brachial Position Sitting Respiration 18 Pulse 56 L Pulse Source Monitor Temp 98.1 F Temperature Source Temporal Artery Pulse Oximetry (%) 99 Oxygen Delivery Method room air Intake Accompanied by: Self Is patient in pain?: No Allergies No Known Allergies Allergy (Verified 04/11/25 14:14) Medications ???Medication ???Instructions ???Recorded ???Confirmed ???Type NK 04/04/25 04/11/25 History Central Venous Access Central Venous Access: No 04/05/2025 MRI brain Reviewed. MRI/Brain W/WO Contrast IMPRESSION: 1. Chronic paranasal sinus disease. 2. No intracranial abnormality is noted. Exam Physical Exam Const alert, oriented x3 and no apparent distress Coding Level of Care Code Off vis,est,level 4 Exam Problem Focused Diagnoses Non-seminomatous cancer of right testis C62.91 Laterality: right Confusion R41.0 Lung nodules R91.8 Assessment and Plan Assessment and Plan (1) Non-seminomatous testicular cancer: Status: Acute Qualifiers: Laterality: right Qualified Code(s): C62.91 - Malignant neoplasm of right testis, unspecified whether descended or undescended Comment: Non-seminoma pT1b cN0 M0 stage I. Low risk disease Discussed non-seminomatous testicular cancer. CT c/a/p showed Lung nodules, no adenopathy. He had Lung nodules in 2021. Discussed preferred management which is observation, RPLND and Chemotherapy. My recommendation is observation. Pt agreed. Plan: To do observation. To obtain alpha-fetoprotein and beta-hCG with LDH. (2) Confusion: Status: Acute Comment: MRI brain was negative. Plan: To do observation (3) Lung nodules: Status: Chronic Comment: He had Lung nodules in 2019. CT from 2019 reviewed, showed nodules which the same size as current CT. Plan: To continue observation. Orders: Orders AFP, Tumor Marker 04/26/25 C62.91 - Malignant neoplasm of right testis, unspecified whether descended or undescended HCG BETA-SUBUNIT QUANT. 04/26/25 C62. - Malignant neoplasm of right testis, unspecified whether descended or undescended LDH 04/26/25 C62.91 - Malignant neoplasm of right testis, unspecified whether descended or undescended Plan Details Follow Up: 3 Weeks 04/11/251824 Date Renato Brunson MD [facility] Signature: Date (if applicable) CC: [facility] [employer] DIRECTORWilliam Mosher; Dr. Feliz Van MD Normal [facility] AFP, Tumor Markeron 04-06-20 AFP TUMOR ANGELA 6.6 ng/mL High 0.0-5.7 [facility] Comment on above: Order Comment: NN Result Comment: [employer] Electrochemiluminescence Immunoassay (ECLIA) Values obtained with different assay methods or kits cannot be used interchangeably. Results cannot be interpreted as absolute evidence of the presence or absence of malignant disease. This test is not interpretable in females. Performed at: [address] [id number] Private Branch Exchange Service Adviser: Luis Rubio PhD, Phone: [phone] Performed By: #### L 100.0100 #### [facility] [address] [place], [place], [id number] HCG BETA-SUBUNIT QUANT.on HCG B-SUBUNIT < 1 Normal 0-3 [facility] Comment on above: Result Comment: Abdi MCKINNEY methodology Performed at: - [facility] [id number] Private Branch Exchange Service Adviser: Luis Rubio PhD, Phone: [phone] Performed By: #### L 100.0100 #### [facility] [address], [place], [id number] Brain W/WO Contraston 2024 Brain W/WO Contrast [facility] Imaging Services [address] [place] [id number] Brain W/WO Contrast MR#: [id number] Acct: [id number] Name: JESSICA BARR Rep #: [id number] : 2005 M 19 From: Chicho Schrader PCP: ALEJANDRO Brown Status: REG CLI Study: Brain W/WO Contrast Date of Exam: 04/05/25 Exam# [id number] Ordering Dr: Renato Brunson MD PROCEDURE: BRAIN W/WO CONTRAST 04/05/2025 REASON FOR EXAM: TESTICULAR CA/CONFUSION TECHNIQUE: BRAIN W/WO CONTRAST Multiplanar and multisequence images were obtained. CONTRAST: Clariscan VOLUME: 15 mL intravenous. COMPARISON: None. FINDINGS: Brain: Normal signal intensities. No orbital pathology is noted. Bilateral internal auditory canals appear symmetric and within the normal range. Diffusion: Diffusion-weighted images demonstrate no area of restricted diffusion. Ventricles: Normal. Sinuses: Mild mucosal thickening is seen of the bilateral maxillary sinuses, minimal of the bilateral ethmoid air cells. No air-fluid level is noted. Mastoids: Clear. Other: Following intravenous contrast administration, no area of abnormal enhancement is seen MRI/Brain W/WO Contrast IMPRESSION: 1. Chronic paranasal sinus disease. 2. No intracranial abnormality is noted. Reading Location: [place] [address] CC: ALEJANDRO Mosher; Dr. Renato Brunson MD Solvent Station Attendant: Signed Normal [facility] Magnetic resonance imaging r eportOrdered By: Chicho Brunner on 04-05-2025 Study report [facility] Imaging Services [address] [place] [address] Brain W/WO Contrast MR#: [id number] Acct: [id number] Name: JESSICA BARR Rep #: [id number] : 2005 M 19 From: Jasson Brunner MD PCP: ALEJANDRO Brown Status: RE G CLI Study:Brain W/WO Contrast Date of Exam: 04/05/25 Exam# [id number] Ordering Dr: Hector Brunson MD PROCEDURE: BRAIN W/WO CONTRAST 04/05/2025 REASON FOR EXAM: TESTICULAR CA/CONFUSION TECHNIQUE: BRAIN W/WO CONTRAST Multiplanar and multisequence images were obtained. CONTRAST: Clariscan VOLUME: 15 mL intravenous. COMPARISON: None. FINDINGS: Brain: Normal signal intensities. No orbital pathology is noted. Bilateral internal auditory canals appear symmetric and within the normal range. Diffusion: Diffusion-weighted images demonstrate no area of restricted diffusion. Ventricles: Normal. Sinuses: Mild mucosal thickening is seen of the bilateral maxillary sinuses, minimal of the bilateral ethmoid air cells. No air-fluid level is noted. Mastoids: Clear. Other: Following intravenous contrast administration, no area of abnormal enhancement is seen MRI/Brain W/WO Contrast IMPRESSION: 1. Chronic paranasal sinus disease. 2. No intracranial abnormality is noted. Reading Location: [place] [address] CC: ALEJANDRO Mosher; Dr. Renato Brunson MD ~ Solvent Station Attendant: Signed [facility] LDHon 04-04-2025 LDH 171 U/L Normal 87-241 [facility] Comment on above: Order Comment: N1 Performed By: #### L 100.0100 #### [facility] [address] [place], [address] Lactate dehydrogenase (LDH) measurementOrdered By: Renato Brunson on 04-04-2025 LDH [Catalytic activity/Vol] 171 U/L 87-241 [facility] Oncology Visit Reporton 03-08 Oncology Visit Report [facility] [address] [place] [address] OFFICE VISIT Date of Service: 04/04/25 1420 MR#: [id number] Acct: [id number] Name: JESSICA BARR Rep #: [id number] : 2005 From: Renato Brunson MD Age/Sex: 19/M Location: [facility] Status: Signed HPI Subjective Date of Service 04/04/25 Chief Complaint F/u for Testicular cancer. History of Present Illness 19-year-old man presented to the [facility] ER with right testicular pain. Ultrasound on 03/04/2025 showed complex vascular mass within the right testicle measuring 3.2 cm. He underwent right radical orchiectomy on 03/06/2025. 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 LDH on 03/06/2025 was 176. Alpha-fetoprotein on 03/07/2025 was 234. He was referred for further evaluation and management. He had CT and tumor markers done and comes for follow up. Has had episodes of confusion and lack of ability to concentrate. [facility] Medical History Pain in right testicle Smoker Depression Anxiety Surgical History Status post open reduction and internal fixation (ORIF) of fracture Family History Grandmother Breast cancer Aunt Breast cancer Uncle Cancer Social History Smoking Status: Current every day smoker tobacco type: cigarettes and e-cigarettes alcohol intake: current alcohol intake frequency: a few times a month substance use type: marijuana Intake Vital Signs 03/27/25 14:04 04/04/25 14:20 Height 5 ft 8 in 5 ft 8 in Weight: 72.773 kg BMI 24.3 BP 134/75 H Blood Pressure Location Lt brachial Position Sitting Respiration 18 Pulse 77 Pulse Source Monitor Temp 98.5 F Temperature Source Temporal Artery Pulse Oximetry (%) 96 Oxygen Delivery Method room air Intake Accompanied by: Self Is patient in pain?: No Allergies No Known Allergies Allergy (Verified 04/04/25 14:25) Medications ???Medication ???Instructions ???Recorded ???Confirmed ???Type NK 04/04/25 04/04/25 History Central Venous Access Central Venous Access: No 03/28/2025 CT c/a/p reviewed. CT/CT Chest, Abd, Pel w/Contrast IMPRESSION: Multiple pulmonary nodules as above measuring up to 6 mm. Consider follow-up CT in 3-6 months per Fleischner guidelines. Otherwise, no other evidence of metastatic disease. No lymphadenopathy. Exam Physical Exam Const alert, oriented x3 and no apparent distress Coding Level of Care Code Off vis,est,level 4 Exam Problem Focused Diagnoses Non-seminomatous cancer of right testis C62.91 Laterality: right Confusion R41.0 Lung nodules R91.8 Assessment and Plan Assessment and Plan (1) Non-seminomatous testicular cancer: Status: Acute Qualifiers: Laterality: right Qualified Code(s): C62.91 - Malignant neoplasm of right testis, unspecified whether descended or undescended Comment: Non-seminoma pT1b cN0 stage I. Discussed non-seminomatous testicular cancer. CT c/a/p showed Lung nodules, no adenopathy. He had Lung nodules in 2021. Plan: To obtain alpha-fetoprotein and beta-hCG with LDH. (2) Confusion: Status: Acute Comment: R/O Brain metastasis. Plan: To obtain MRI brain (3) Lung nodules: Status: Chronic Comment: He had Lung nodules in 2019. Plan: To obtain imaging from [facility] Orders: Orders LDH Today C62.91 - Malignant neoplasm of right testis, unspecified whether descended or undescended, R91.8 - Other nonspecific abnormal finding of lung field AFP, Tumor Marker Today C62.91 - Malignant neoplasm of right testis, unspecified whether descended or undescended, R91.8 - Other nonspecific abnormal finding of lung field HCG BETA-SUBUNIT QUANT. Today C62.91 - Malignant neoplasm of right testis, unspecified whether descended or undescended, R91.8 - Other nonspecific abnormal finding of lung field Brain W/WO Contrast 04/06/25 C62.91 - Malignant neoplasm of right testis, unspecified whether descended or undescended, R41.0 - Disorientation, unspecified Plan Details Follow Up: 1 Week 04/04/25 1639 Date Renato Harris Signature: Date (if applicable) CC: [employer] DIRECTOR-C Mitali Mosher Normal [facility] AFP, Tumor Markeron 04-01-20 AFP TUMOR ANGELA 11.0 ng/mL High 0.0-5.7 [facility] Comment on above: Order Comment: N Result Comment: [employer] Electrochemiluminescence Immunoassay (ECLIA) Values obtained with different assay methods or kits cannot be used interchangeably. Results cannot be interpreted as absolute evidence of the presence or absence of malignant disease. This test is not interpretable in females. Performed at: [facility] [employer] [id number] Private Branch Exchange Service Adviser: Luis Rubio PhD, Phone: [phone] Performed By: #### L 621.0578, C700.7281 #### [facility] Laboratory [facility] [place], [address] HCG BETA-SUBUNIT QUANT.on HCG B-SUBUNIT < 1 Normal 0-3 [facility] Comment on above: Result Comment: Abdi antoine ECLIA methodology Performed at: [facility] [employer] [id number] Private Branch Exchange Service Adviser: Luis Rubio PhD, Phone: [phone] Performed By: #### L 100.0100, L500.2500 #### [facility] [address] [facility] [place], [address] Absolute lymphocyte countOrd ered By: Renato Valdez on 03-30-2025 Lymphocytes Auto (Unsp spec) [#/Vol] 1.74 10*3/uL 0.83-4.51 [facility] Absolute neutrophil countOrd ered By: [facility] on 03-30-2025 Neutrophils (Bld) [#/Vol] 3.6 10*3/uL 2.0-7.7 [facility] Anion gap in Serum or Plasma Ordered By: [facility] on 03-30-2025 Anion gap [Moles/Vol] 12 mmol/L 5-15 [facility] Automated lymphocyte count a s percentage of total leukocytesOrdered By: [facility] on 03-30-2025 Lymphocytes/100 WBC Auto (Unsp spec) 27.8 % 19- [facility] BUN/creatinine ratioOrdered By: [facility] on 03-30-2025 Urea nitrogen/Creatinine [Mass ratio] 15.7 mg/mg 10- [facility] Basophil percentageOrdered B y: Renato [facility] on 03-30-2025 Basophils/100 WBC (Bld) 1.1 % High 0-1 [facility] Bilirubin, totalOrdered By: [facility] on 03-30-2025 Bilirubin [Mass/Vol] 0.35 mg/dL 0.00-1.30 [facility] CBC W/Diff, Automatedon 03-08 Absolute Lymph 1.74 X10 3/uL Normal 0.83-4.51 [facility] Comment on above: Performed By: #### L 100.0100 #### [facility] [address] [place], [address] Absolute Neut 3.6 X10 3/uL Normal 2.0-7.7 [facility] Comment on above: Performed By: #### L 100.0100 #### [facility] [address] [place] [facility] [place], [address] Basophils/100 WBC (Bld) 1.1 % High 0-1 [facility] Comment on above: Performed By: #### L 100.0100 #### [facility] [address] [place], [address] Eosinophils/100 WBC (Bld) 3.5 % Normal 0-5 [facility] Comment on above: Performed By: #### L 100.0100 #### [facility] [address] [place], [address] Erythrocyte distribution width (RBC) [Ratio] 12.5 % Normal 11.6-14.6 [facility] Comment on above: Performed By: #### L 100.0100 #### [facility] [address] [place], [address] Hematocrit (Bld) [Volume fraction] 39.4 % Low 40-54 [facility] Comment on above: Performed By: #### L 100.0100 #### [facility] [address] [place], [address] Hemoglobin (Bld) [Mass/Vol] 13.9 g/dL Normal 13.0-16.5 [facility] Comment on above: Performed By: #### L 100.0100 #### [facility] [address] [place], [address] IG% 0.300 Normal 0.0-0.9 [facility] Comment on above: Result Comment: IG% - Immature Granulocytes (promyelocytes, myelocytes and metamyelocytes) > 1% indicates that a LEFT SHIFT is Present. Performed By: #### L 100.0100 #### [facility] [address] [place], [address] Lymphocytes/100 WBC (Bld) 27.8 % Normal 19-41 [facility] Comment on above: Performed By: #### L 100.0100 #### [facility] [address] [place], [address] MCH (RBC) [Entitic mass] 29.2 pg Normal 27.0-32.0 [facility] Comment on above: Performed By: #### L 100.0100 #### [facility] [address] [place], [address] MCHC (RBC) [Mass/Vol] 35.3 g/dL Normal 32-36 [facility] Comment on above: Performed By: #### L 100.0100 #### [facility] [address] [place], [address] MCV (RBC) [Entitic vol] 82.8 fL Normal 80-94 [facility] Comment on above: Performed By: #### L 100.0100 #### [facility] [address] [place], [address] Monocytes/100 WBC (Bld) 10.1 % High 0-10 [facility] Comment on above: Performed By: #### L 100.0100 #### [facility] [address] [place], [address] Neutrophils/100 WBC (Bld) 57.2 % Normal 47-70 [facility] Comment on above: Performed By: #### L 100.0100 #### [facility] [address] [place], [address] Nucleated RBC (Bld) [#/Vol] 0 10*3/uL Normal 0-5 [facility] Comment on above: Performed By: #### L 100.0100 #### [facility] [address] [place], [address] Platelet mean volume (Bld) [Entitic vol] 9.6 fL Normal 6.2-12.0 [facility] Comment on above: Performed By: #### L 100.0100 #### [facility] [address] [place], [address] Platelets (Bld) [#/Vol] 315 10*3/uL Normal 150-450 [facility] Comment on above: Performed By: #### L 100.0100 #### [facility] [address] [place], [address] RBC (Bld) [#/Vol] 4.76 10*6/uL Normal 4.6-6.2 [facility] Comment on above: Performed By: #### L 100.0100 #### [facility] [address] [place], [address] RDW SD 38.1 fl Normal 35.1-43.9 [facility] Comment on above: Performed By: #### L 100.0100 #### [facility] [address] [place], [address] WBC (Bld) [#/Vol] 6.3 10*3/uL Normal 4.4-11.0 [facility] Comment on above: Performed By: #### L 100.0100 #### [facility] [address] [place], [address] Carbon dioxide, total [Moles /volume] in Central venous bloodOrdered By: Renato Brunson on 03-30-2025 CO2 [Moles/Vol] 23.2 mmol/L 21.0-32.0 [facility] Chloride assayOrdered By: Mary Jo Brunson on 03-30-2025 Chloride [Moles/Vol] 103 mmol/L 98-108 [facility] Comprehensive Metabolic Prof ilon 03-30-2025 Albumin [Mass/Vol] 4.5 g/dL Normal 3.5-5.0 [facility] Comment on above: Performed By: #### L 100.0100 #### [facility] [address] [place], [address] Albumin/Globulin [Mass ratio] 1.8 {ratio} Normal 0.9-2.4 [facility] Comment on above: Performed By: #### L 100.0100 #### [facility] [address] [place], [address] ALK PHOS 82 U/L Normal 40-129 [facility] Comment on above: Performed By: #### L 100.0100 #### [facility] [address] [place], [address] ALT [Catalytic activity/Vol] 15 U/L Normal <=46 [facility] Comment on above: Performed By: #### L 100.0100 #### [facility] [address] [place], [address] AST [Catalytic activity/Vol] 21 U/L Normal <=37 [facility] Comment on above: Performed By: #### L 100.0100 #### [facility] [address] [place], [address] Bilirubin [Mass/Vol] 0.35 mg/dL Normal 0.00-1.30 [facility] Comment on above: Performed By: #### L 100.0100 #### [facility] [address] [place], [address] BUN/CRE 15.7 RATIO Normal 10-20 [facility] Comment on above: Performed By: #### L 100.0100 #### [facility] [address] [place], [address] Calcium [Mass/Vol] 9.5 mg/dL Normal 7.6-11.0 [facility] Comment on above: Performed By: #### L 100.0100 #### [facility] [address] [place], [address] Chloride [Moles/Vol] 103 mmol/L Normal 98-108 [facility] Comment on above: Performed By: #### L 100.0100 #### [facility] [address] [place], [address] CO2 [Moles/Vol] 23.2 mmol/L Normal 21.0-32.0 [facility] Comment on above: Performed By: #### L 100.0100 #### [facility] [address] [place], [address] Creatinine [Mass/Vol] 0.84 mg/dL Normal 0.70-1.20 [facility] Comment on above: Performed By: #### L 100.0100 #### [facility] [address] [place], [address] GAP 12 Normal 5-15 [facility] Comment on above: Performed By: #### L 100.0100 #### [facility] [address] [place], [address] GFR/1.73 sq M.predicted among non-blacks MDRD (S/P/Bld) [Vol rate/Area] 127 mL/min/{1.73_m2} Normal >60 [facility] Comment on above: Result Comment: mL/m in/1.73m2 CKD-EPI Creatinine Equation (2020) Performed By: #### L 100.0100 #### [facility] [address] [place], [address] Globulin (S) [Mass/Vol] 2.5 g/dL Normal 2.2-4.2 [facility] Comment on above: Performed By: #### L 100.0100 #### [facility] [address] [place], [address] Glucose [Mass/Vol] 87 mg/dL Normal 70-99 [facility] Comment on above: Performed By: #### L 100.0100 #### [facility] [address] [place], [address] Potassium [Moles/Vol] 4.0 mmol/L Normal 3.3-5.1 [facility] Comment on above: Performed By: #### L 100.0100 #### [facility] [address] [place], [place], [id number] (139) Sodium [Moles/Vol] 139 mmol/L Normal 133-145 [facility] Comment on above: Performed By: #### L 100.0100 #### [facility] [address] [place], [address] T PROT 7.0 g/dL Normal 5.9-8.4 [facility] Comment on above: Performed By: #### L 100.0100 #### [facility] [address] [place], [place], [id number] (821) Urea nitrogen [Mass/Vol] 13 mg/dL Normal 4-19 [facility] Comment on above: Performed By: #### L 100.0100 #### [facility] [address] [place], [place], [id number] Eosinophil percentageOrdered By: Renato Brunson on 03-30-2025 Eosinophils/100 WBC (Bld) 3.5 % 0-5 [facility] Erythrocyte distribution wid th ratioOrdered By: Renato Brunson on 03-30-2025 Erythrocyte distribution width (RBC) [Ratio] 12.5 % 11.6-14.6 [facility] Erythrocyte distribution wid th standard deviationOrdered By: Renato Brunson on 03-30-2025 Erythrocyte distribution width (RBC) [Ratio] 38.1 fl 35.1-43.9 [facility] Glomerular filtration rate ( GFR) estimation/1.73 sq m using serum, plasma, or whole bOrdered By: Renato Brunson on 03-30-2025 GFR/1.73 sq M.predicted among non-blacks MDRD (S/P/Bld) [Vol rate/Area] 127 mL/min/{1.73_m2} >60 [facility] Comment on above: mL/min/1.73m2 CKD-EP I Creatinine Equation (2020) Hematocrit Auto (Bld) [Volum e fraction]Ordered By: Renato Brunson on 03-30-2025 Hematocrit (Bld) [Volume fraction] 39.4 % Low 40-54 [facility] Hemoglobin measurementOrdere d By: Renato Brunson on 03-30-2025 Hemoglobin (Bld) [Mass/Vol] 13.9 g/dL 13.0-16.5 [facility] Immature granulocytes/100 WB C Auto (Bld)Ordered By: Renato Brunson on 03-30-2025 Immature granulocytes/100 WBC (Bld) 0.300 % 0.0-0.9 [facility] Comment on above: IG% - Immature Granu locytes (promyelocytes, myelocytes and metamyelocytes) > 1% indicates that a LEFT SHIFT is Present. LDHon 03-30-2025 LDH 155 U/L Normal 87-241 [facility] Comment on above: Order Comment: 1 Performed By: #### L 100.0100, L500.2500 #### [facility] [address] [place], [address] Laboratory - Chemistry and C hemistry - challengeOrdered By: Renato Brunson on 03-30-2025 AST [Catalytic activity/Vol] 21 U/L <38 [facility] Lactate dehydrogenase (LDH) measurementOrdered By: [facility] on 03-30-2025 LDH [Catalytic activity/Vol] 155 U/L 87-241 [facility] MCV (mean corpuscular volume ) determinationOrdered By: Renato Brunson on 03-30-2025 MCV (RBC) [Entitic vol] 82.8 fL 80-94 [facility] Magnesiumon 03-30-2025 Magnesium [Mass/Vol] 1.9 mg/dL Normal 1.5-2.2 [facility] Comment on above: Performed By: #### L 100.0100, L500.2500 #### [facility] [address] [place], [place], [id number] Magnesium measurement (mass/ volume)Ordered By: Renato Brunson on 03-30-2025 Magnesium (Unsp spec) [Mass/Vol] 1.9 mg/dL 1.5-2.2 [facility] Mean corpuscular hemoglobin (MCH) determinationOrdered By: Renato Brunson on 03-30-2025 MCH (RBC) [Entitic mass] 29.2 pg 27.0-32.0 [facility] Mean corpuscular hemoglobin concentration (MCHC) determinationOrdered By: Renato Brunson on 03-30-2025 MCHC (RBC) [Mass/Vol] 35.3 g/dL 32-36 [facility] Mean platelet volume determi nationOrdered By: Renato Brunson on 03-30-2025 Platelet mean volume (Bld) [Entitic vol] 9.6 fL 6.2-12.0 [facility] Monocyte percentageOrdered B y: Renato Brunson on 03-30-2025 Monocytes/100 WBC (Bld) 10.1 % High 0-10 [facility] Neutrophil percentageOrdered By: Renato Brunson on 03-30-2025 Neutrophils/100 WBC (Bld) 57.2 % 47-70 [facility] Nucleated red blood cell per centageOrdered By: Renato Brunson on 03-30-2025 Nucleated RBC/100 WBC (Bld) [Ratio] 0 % 0-5 [facility] Phosphoruson 03-30-2025 Phosphate [Mass/Vol] 4.1 mg/dL Normal 2.7-4.5 [facility] Comment on above: Performed By: #### L 100.0100, L500.2500 #### [facility] Laboratory [address] [facility] [place], [address] Platelet countOrdered By: Mary Jo Brunson on 03-30-2025 Platelets (Bld) [#/Vol] 315 10*3/uL 150-450 [facility] Potassium measurement (mass/ volume)Ordered By: Renato Brunson on 03-30-2025 Potassium (Unsp spec) [Mass/Vol] 4.0 mmol/L 3.3-5.1 [facility] RBC Auto (Bld) [#/Vol]Ordere d By: Renato Brunson on 03-30-2025 RBC (Bld) [#/Vol] 4.76 10*6/uL 4.6-6.2 [facility] Serum creatinine measurement (mass/volume)Ordered By: Renato Brunson on 03-30-2025 Creatinine [Mass/Vol] 0.84 mg/dL 0.70-1.20 [facility] Serum globulin measurementOr dered By: Renato Brunson on 03-30-2025 Globulin (S) [Mass/Vol] 2.5 g/dL 2.2-4.2 [facility] Serum glucose measurement (m ass/volume)Ordered By: Renato Brunson on 03-30-2025 Glucose [Mass/Vol] 87 mg/dL 70-99 [facility] Serum or plasma alanine duval otransferase (ALT) measurementOrdered By: Renato Brunson on 03-30-2025 ALT [Catalytic activity/Vol] 15 U/L <47 [facility] Serum or plasma albumin erica urement (mass/volume)Ordered By: Renato Brunson on 03-30-2025 Albumin [Mass/Vol] 4.5 g/dL 3.5-5.0 [facility] Serum or plasma albumin/glob ulin mass ratioOrdered By: Renato Brunson on 03-30-2025 Albumin/Globulin [Mass ratio] 1.8 {ratio} 0.9-2.4 [facility] Serum or plasma alkaline memo sphatase measurementOrdered By: Renato Brunson on 03-30-2025 ALP [Catalytic activity/Vol] 82 U/L 40-129 [facility] Serum or plasma calcium erica urement (mass/volume)Ordered By: Renato Brunson on 03-30-2025 Calcium [Mass/Vol] 9.5 mg/dL 7.6-11.0 [facility] Serum or plasma urea nitroge n measurement (mass/volume)Ordered By: Renato Brunson on 03-30-2025 Urea nitrogen [Mass/Vol] 13 mg/dL 4-19 [facility] Sodium levelOrdered By: Mark Brunson on 03-30-2025 Sodium [Moles/Vol] 139 mmol/L 133-145 [facility] Total proteinOrdered By: Hector Brunson on 03-30-2025 Protein [Mass/Vol] 7.0 g/dL 5.9-8.4 [facility] White blood cell (WBC) count Ordered By: Renato Brunson on 03-30-2025 WBC (Bld) [#/Vol] 6.3 10*3/uL 4.4-11.[address] [facility] [address] Chest, Abd, Pel w/Contras ton 03-28-2025 CT Chest, Abd, Pel w/Contrast [facility] Imaging Services [address] [place] [address] CT Chest, Abd, Pel w/Contrast MR#: [id number] Acct: [id number] Name: JESSICA BARR Rep #: [id number] : 2005 M 19 From: Mauricio Schrader PCP: Mitali Mosher, [employer] DIRECTOR-C Status: REG CLI Study: CT Chest, Abd, Pel w/Contrast Date of Exam: Exam# [id number] Ordering Dr: Renato Brunson MD PROCEDURE: CT CHEST, ABD, PEL W/CONTRAST 03/28/2025 REASON FOR EXAM: TESTICULAR CA-IV ONLY TECHNIQUE: Chest, abdomen and pelvis CT with intravenous contrast. Coronal and Sagittal reconstruction series were provided. One or more dose reduction techniques were used (e.g., Automated exposure control, adjustment of the mA and/or kV according to patient size, use of iterative reconstruction technique. PATIENT PREPARATION: Per protocol CONTRAST: 100 mL of Isovue 370 RADIATION DOSE SUMMARY: DLP: 904 mGycm FINDINGS: LUNGS AND PLEURA: No infiltrate. No pleural effusion. No pneumothorax. No pleural thickening. 6 mm nodule within the left lower lobe best seen on series 2, image 64. 5 mm pulmonary nodule within the left lower lobe best seen on series 2, image 70 3 mm pulmonary nodule within the left lower lobe best seen on series 2, image 99 2 mm nodule within the right base best seen on series 2, image 107 MEDIASTINUM: No lymphadenopathy or mass. The heart shows no acute findings. The aorta shows no acute findings. The pulmonary trunk and branches of the vessels in the mediastinum are within normal limits. SUPRACLAVICULAR AND AXILLARY: No abnormalities seen in these regions. No mass or significant lymphadenopathy. The liver, spleen, pancreas, and both adrenal glands demonstrate no acute findings. The gallbladder is contracted. The stomach is unremarkable. The small bowel loops are not dilated. The appendix is normal. No colonic obstruction. Moderate stool burden which may reflect constipation. There is no free air or significant free fluid. The kidneys are unremarkable. The urinary bladder is distended. The pelvic structures are intact. There is no solid pelvic mass. No significant lymphadenopathy. The aorta and IVC demonstrate no acute findings. Visualized osseous structures demonstrate no acute abnormality. CT/CT Chest, Abd, Pel w/Contrast IMPRESSION: Multiple pulmonary nodules as above measuring up to 6 mm. Consider follow-up CT in 3-6 months per Fleischner guidelines. Otherwise, no other evidence of metastatic disease. No lymphadenopathy. Reading Location: [facility] CC: [employer] DIRECTORWilliam Mosher; Dr. Renato Brunson MD Solvent Station Attendant: Signed Normal [facility] Urine Cultureon 03-28-2025 URC Culture exhibits no growth. Normal [facility] Comment on above: Performed By: #### M 100.2200 ####[facility] [id number] [place], [address] Amorphous sediment detection in urine sediment by light microscopyOrdered By: Renato Brunson on 03-27-2025 Amorphous sediment LM Ql (Urine sed) 1+ [facility] Bilirubin Test strip Ql (U)O rdered By: Renato Brunson on 03-27-2025 Bilirubin Ql (U) Negative Negative [facility] CNPNon 03-27-2025 CNPN Telephone (HEMAPOB) -- JESSICA BARR ([id number]) 1 M Date Time Provider Department 03/27/25 [employer] LAUREN During your visit today, we recorded the following information about you: Drew Marks 03/27/2025 3:38 PM Signed Received transferred call to office with request to schedule 2nd opinion consult at [facility]. Testicular biopsy completed at [facility] with urology. [place] [facility] consult completed today 03/27/2025. OP CT's scheduled 04/12/2025. Office contact information (phone/fax) given to patient with request for faxed records prior to scheduling. Allergies As of Date: 03/27/2025 (No Known Allergies) Date Reviewed: 02/07/2025 Reviewed by: Mily Munson, RN - Fully Assessed Reason for Visit: Referral Request [124] Prescriptions as of 03/27/2025 - buPROPion XL (WELLBUTRIN XL) 150 mg 24 hr tablet Take 1 tablet by mouth once daily. - miconazole (LOTRIMIN AF) 2 % powder Apply 1 application to affected area once daily. - ibuprofen (ADVIL) 200 mg tablet Take 200 mg by mouth every 6 hours as needed. Problem List As Of Date 03/27/2025 Noted Resolved Tobacco use disorder [F17.200] 03/03/2024 History of heavy alcohol consumption [Z87.898] 03/03/2024 Encounter Status:Closed by DREW MARKS on 03/27/25 [facility] Ketones Test strip Ql (U)Ord ered By: Renato Brunson on 03-27-2025 Ketones Ql (U) Negative Negative [facility] Microscopic analysis of urin e for red blood cells (RBC)Ordered By: Renato Brunson on 03-27-2025 Microscopic analysis of urine for red blood cells (RBC) 0-5 SEEN /hpf 0-5 [facility] Mucus LM Ql (Urine sed)Order ed By: Renato Brunson on 03-27-2025 Mucus Ql (Urine sed) 0 SEEN /hpf [facility] Nitrite Test strip Ql (U)Ord ered By: Renato Brunson on 03-27-2025 Nitrite Ql (U) Negative Negative [facility] Oncology Visit Reporton 03-08 Oncology Visit Report [facility] [address] [place] [id number] OFFICE VISIT Date of Service: 03/27/25 1353 MR#: [id number] Acct: [id number] Name: JESSICA BARR Rep #: [id number] : 2005 From: Renato Brunson MD Age/Sex: 19/M [place] [facility] Status: Signed HPI Subjective Date of Service 03/27/25 Chief Complaint Referred for Testicular cancer. History of Present Illness 19-year-old man presented to the [facility] ER with right testicular pain. Ultrasound on 03/04/2025 showed complex vascular mass within the right testicle measuring 3.2 cm. He underwent right radical orchiectomy on 03/06/2025. 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 LDH on 03/06/2025 was 176. Alpha-fetoprotein on 03/07/2025 was 234. He is now referred for further evaluation and management. He is feeling well, he feels pressure in the lower abdomen with frequent urination. [facility] Medical History Pain in right testicle Smoker Depression Anxiety Surgical History Status post open reduction and internal fixation (ORIF) of fracture Family History Grandmother Breast cancer Aunt Breast cancer Uncle Cancer Social History Smoking Status: Current every day smoker tobacco type: cigarettes and e-cigarettes alcohol intake: current alcohol intake frequency: a few times a month substance use type: marijuana ROS Constitutional Constitutional: Reports systems reviewed and no addt'l complaints, except as documented Eyes Eyes: Reports systems reviewed and no addt'l complaints, except as documented ENT HEENT: Reports systems reviewed and no addt'l complaints, except as documented Cardiovascular Cardiovascular: Reports systems reviewed and no addt'l complaints, except as documented Respiratory/Chest Respiratory/Chest: Reports systems reviewed and no addt'l complaints, except as documented Gastrointestinal Gastrointestinal: Reports systems reviewed and no addt'l complaints, except as documented Genitourinary Genitourinary: Reports systems reviewed and no addt'l complaints, except as documented Musculoskeletal Musculoskeletal: Reports systems reviewed and no addt'l complaints, except as documented Integumentary Integumentary: Reports systems reviewed and no addt'l complaints, except as documented Neurologic Neurologic: Reports systems reviewed and no addt'l complaints, except as documented Psychiatric Psychiatric: Reports systems reviewed and no addt'l complaints, except as documented Endocrine Endocrinology: Reports systems reviewed and no addt'l complaints, except as documented Hematologic/Lymphatic Hematologic/Lymphatic: Reports systems reviewed and no addt'l complaints, except as documented Allergic/Immunologic Allergic/Immunologic: Reports systems reviewed and no addt'l complaints, except as documented Intake Vital Signs 03/06/25 08:49 03/27/25 13:54 03/27/25 13:56 03/27/25 14:04 Height 5 ft 8 in 5 ft 8 in 5 ft 8 in 5 ft 8 in Weight: 73.113 kg 73.113 kg BMI 24.5 24.5 BP 116/72 Blood Pressure Location Lt brachial Position Sitting Respiration 18 Pulse 62 Pulse Source Monitor Temp 98.7 F Temperature Source Temporal Artery Pulse Oximetry (%) 98 Oxygen Delivery Method room air Intake Accompanied by: Self Is patient in pain?: Yes (near testicle) Pain scale (1-10): 5 Allergies No Known Allergies Allergy (Verified 03/27/25 13:57) Central Venous Access Central Venous Access: No 03/06/2025 Right Orchiectomy reviewed. MICROSCOPIC DIAGNOSIS A. Testicle, right, solid right testicular mass, radical orchiectomy: - Mixed germ cell tumor comprised of teratoma (50%), embryonal carcinoma (40%), yolk sac tumor (10%) ??? see Comment and Synoptic Report. SYNOPTIC REPORT FOR TESTICULAR GERM CELL TUMOR: Procedure (r=radical orchiectomy): R Laterality (r=right, l=left): R Focality (u=unifocal, m=multifocal): U Tumor size (cm): 3.2x3.0x2.9 cm Histologic types (with %): teratoma (50%), embryonal 40%), yolk sac (10%). Lymphovascular invasion: not identified Tumor extent (n=no, y=yes, na=not applicable): Invasion of rete stroma: N Invasion of epididymis: N Invasion of hilar fat: N Invasion of tunica vaginalis: N Invasion of spermatic cord: N Invasion of scrotum: NA Margins (n=negative, p=positive, na=not applicable): N Location positive margin: NA Regional lymph nodes (n=no, y=yes, na=not applicable): NA Number examined: 0 Number positive: NA Size of largest involved node/mass (cm): NA Extranodal extension: NA Histologic types (with % (more content not included)... Normal [facility] Protein Test strip Ql (U)Ord ered By: Renato Brunson on 03-27-2025 Protein Ql (U) Negative Negative [facility] Squamous epithelial cells de tection in urine sediment by light microscopyOrdered By: Renato Brunson on 03-27-2025 Epithelial cells.squamous LM Ql (Urine sed) 0-5 SEEN /hpf 0-5 [facility] Urinalysis, Completeon 03-27 AMORPHOUS 1+ Normal [facility] Comment on above: Order Comment: LUIS DANIEL CTOR TO SPECIFY Performed By: #### L 100.0100, L500.2500 #### [facility] Laboratory [address] [place], [address] BACTERIA 1+ /hpf Normal None Seen [facility] Comment on above: Order Comment: LUIS DANIEL CTOR TO SPECIFY Performed By: #### L 100.0100, L500.2500 #### [facility] [address] [place], [address] EPI,SQUAMOUS 0-5 SEEN Normal 0-5 [facility] Comment on above: Order Comment: LUIS DANIEL CTOR TO SPECIFY Performed By: #### L 100.0100, L500.2500 #### [facility] [address] [place], [address] RBC 0-5 SEEN Normal 0-5 [facility] Comment on above: Order Comment: LUIS DANIEL CTOR TO SPECIFY Performed By: #### L 100.0100, L500.2500 #### [facility] [address] [place], [address] WBC 0-5 SEEN Normal 0-5 [facility] Comment on above: Order Comment: LUIS DANIEL CTOR TO SPECIFY Performed By: #### L 100.0100, L500.2500 #### [facility] [address] [place], [address] Mucus Ql (Urine sed) 0 SEEN Normal [facility] Comment on above: Order Comment: COLLE CTOR TO SPECIFY Performed By: #### L 100.0100, L500.2500 #### [facility] [address] [place], [address] Urine clarityOrdered By: Hector Brunson on 03-27-2025 Clarity (U) Sl. Cloudy Clear [facility] Urine color determinationOrd ered By: Renato Brunson on 03-27-2025 Color (U) Yellow Yellow [facility] Urine cultureOrdered By: Hector Brunson on 03-27-2025 Bacteria identified Cx Nom (U) Culture exhibits no growth. [facility] Urine glucose detectionOrder ed By: Renato Brunson on 03-27-2025 Glucose Ql (U) Normal mg/dl Normal [facility] Urine leukocyte esterase det ection by dipstickOrdered By: Renato Brunson on 03-27-2025 Leukocyte esterase Test strip Ql (U) Negative Negative [facility] Urine pHOrdered By: Renato hadley on 03-27-2025 pH (U) 7.0 [pH] 5.0 - 8.0 [facility] Urine sediment bacteria coun t by microscopy (number/high power field)Ordered By: Renato Brunson on 03-27-2025 Bacteria LM.HPF (Urine sed) [#/Area] 1 /[HPF] None Seen [facility] Urine specific gravity measu rementOrdered By: Renato Brunson on 03-27-2025 Specific gravity (U) [Rel density] 1.010 1.002-1.03 0 [facility] Urine urobilinogen measureme ntOrdered By: Renato Brunson on 03-27-2025 Urobilinogen Ql (U) Normal mg/dl Normal [facility] White blood cell countOrdere d By: Renato Brunson on 03-27-2025 White blood cell count 0-5 SEEN /hpf 0-5 [facility] AFP, Tumor Markeron 03-08-20 25 AFP TUMOR ANGELA 234.0 ng/mL High 0.0-5.7 [facility] Comment on above: Result Comment: [employer] Electrochemiluminescence Immunoassay (ECLIA) Values obtained with different assay methods or kits cannot be used interchangeably. Results cannot be interpreted as absolute evidence of the presence or absence of malignant disease. This test is not interpretable in females. Performed at: [address] [id number] [employer] Exchange Service Adviser: Luis Rubio PhD, Phone: [phone] Performed By: #### L 3300.0700 #### [facility] [address] [place], [address] Absolute lymphocyte countOrd ered By: Frankie Moreno on 03-07-2025 Lymphocytes Auto (Unsp spec) [#/Vol] 1.30 10*3/uL 0.83-4.51 [facility] Absolute neutrophil countOrd ered By: Frankie Moreno on 03-07-2025 Neutrophils (Bld) [#/Vol] 13.1 10*3/uL High 2.0-7.7 [facility] Automated lymphocyte count a s percentage of total leukocytesOrdered By: Frankie Moreno on 03-07-2025 Lymphocytes/100 WBC Auto (Unsp spec) 8.2 % Low 19-41 [facility] Basophil percentageOrdered B y: Frankie Moreno on 03-07-2025 Basophils/100 WBC (Bld) 0.3 % 0-1 [facility] CBC W/Diff, Automatedon 07- Absolute Lymph 1.30 X10 3/uL Normal 0.83-4.51 [facility] Comment on above: Performed By: #### L 100.0100 #### [facility] [address] [place], [address] Absolute Neut 13.1 X10 3/uL High 2.0-7.7 [facility] Comment on above: Performed By: #### L 100.0100 #### [facility] [address] [place], [address] Basophils/100 WBC (Bld) 0.3 % Normal 0-1 [facility] Comment on above: Performed By: #### L 100.0100 #### [facility] [address] [place], [address] Eosinophils/100 WBC (Bld) 0.1 % Normal 0-5 [facility] Comment on above: Performed By: #### L 100.0100 #### [facility] [address] [place], [address] Erythrocyte distribution width (RBC) [Ratio] 13.2 % Normal 11.6-14.6 [facility] Comment on above: Performed By: #### L 100.0100 #### [facility] [address] [place], [address] Hematocrit (Bld) [Volume fraction] 37.7 % Low 40-54 [facility] Comment on above: Performed By: #### L 100.0100 #### [facility] [address] [place], [address] Hemoglobin (Bld) [Mass/Vol] 12.8 g/dL Low 13.0-16.5 [facility] Comment on above: Performed By: #### L 100.0100 #### [facility] [address] [place], [address] IG% 0.600 Normal 0.0-0.9 [facility] Comment on above: Result Comment: IG% - Immature Granulocytes (promyelocytes, myelocytes and metamyelocytes) > 1% indicates that a LEFT SHIFT is Present. Performed By: #### L 100.0100 #### [facility] [address] [place], [address] Lymphocytes/100 WBC (Bld) 8.2 % Low 19-41 [facility] Comment on above: Performed By: #### L 100.0100 #### [facility] [address] [place], [address] MCH (RBC) [Entitic mass] 29.3 pg Normal 27.0-32.0 [facility] Comment on above: Performed By: #### L 100.0100 #### [facility] [address] [place], [address] MCHC (RBC) [Mass/Vol] 34.0 g/dL Normal 32-36 [facility] Comment on above: Performed By: #### L 100.0100 #### [facility] [address] [place], [address] MCV (RBC) [Entitic vol] 86.3 fL Normal 80-94 [facility] Comment on above: Performed By: #### L 100.0100 #### [facility] [address] [place], [address] Monocytes/100 WBC (Bld) 8.3 % Normal 0-10 [facility] Comment on above: Performed By: #### L 100.0100 #### [facility] [place], [address] Neutrophils/100 WBC (Bld) 82.5 % High 47-70 [facility] Comment on above: Performed By: #### L 100.0100 #### [facility] [address] [place], [address] Nucleated RBC (Bld) [#/Vol] 0 10*3/uL Normal 0-5 [facility] Comment on above: Performed By: #### L 100.0100 #### [facility] [address] [place], [address] Platelet mean volume (Bld) [Entitic vol] 10.5 fL Normal 6.2-12.0 [facility] Comment on above: Performed By: #### L 100.0100 #### [facility] [address] [place], [address] Platelets (Bld) [#/Vol] 373 10*3/uL Normal 150-450 [facility] Comment on above: Performed By: #### L 100.0100 #### [facility] [address] [place], [address] RBC (Bld) [#/Vol] 4.37 10*6/uL Low 4.6-6.2 [facility] Comment on above: Performed By: #### L 100.0100 #### [facility] [address] [place], [address] RDW SD 41.3 fl Normal 35.1-43.9 [facility] Comment on above: Performed By: #### L 100.0100 #### [facility] [address] [place], [address] WBC (Bld) [#/Vol] 15.9 10*3/uL High 4.4-11.0 [facility] Comment on above: Performed By: #### L 100.0100 #### [facility] [address] [place], [address] Discharge Instructionon 07-0 Discharge Instruction [facility] Medical Records Department [address] [place] [address] Instructions for Home/Discharge Instructions 03/07/25 1008 MR#: [id number] Acct: [id number] Name: JESSICA BARR Rep #: [id number] : 2005 19 From: Frankie Moreno MD PCP: ALEJANDRO Brown Status:ADM IN Discharge Instructions Diet Discharge Diet: No restrictions DC O2, CPAP, BIPAP needs Home O2 Discharge instructions: No Dressing / Incision Discharge Activity: Return to Normal Activity Weight Bearing Status: Weight bearing as tolerated Dressing / Incision Call your doctor if you observe: Fever of 101 or Higher Follow Up Care Please Follow Up With: Feliz Van MD When: IN 2 WEEKS Test Results: Test results from this visit will be discussed in further detail at your follow-up appointment, if applicable. Discharge Plan Admission Admit Date/Time: 03/05/25 18:06 Primary Reason for Your Visit: Right radical orchiectomy Attending Provider: Frankie Moreno Primary Care Provider: Mitali Mosher NP Consulting Providers: Feliz Van; Felecia Roland Instructions Forms: ED Work / School Excuse Additional Instructions / Restrictions: The ultrasound shows no significant changes from [...] MiraLAX or Dulcolax while using this medicine. Discharge Orders/Prescriptions Prescriptions: New hydrocodone-acetaminophen 5-325 mg tablet 1 tab PO Q6H PRN PRN (Reason: Pain) 3 Days Qty: 12 0RF ondansetron 4 mg tablet,disintegrating 4 mg PO Q6H PRN (Reason: nausea and vomiting) Qty: 12 0RF sennosides-docusate sodium [Stimulant Laxative Plus] 8.6-50 mg Tablet 2 tab PO BID PRN PRN (Reason: Constipation) Qty: 0 0RF Rx Instructions: Available [id number] pain Referrals / Follow Up: Feliz Van MD [Med Staff - Active Staff] - Mitali Mosher NP, SUMMER SESSIONS DIRECTOR-C [Primary Care Provider] - Disposition Disposition (needs filled in before D/C Order can be placed): Home, Self Care 03/07/25 1010 Frankie Moreno MD CC: SUMMER SESSIONS DIRECTOR-C Mitali Mosher; Dr. Feliz Van MD; Dr. Felecia Roland MD Signed Normal [facility] Eosinophil percentageOrdered By: Frankie Moreno on 03-07-2025 Eosinophils/100 WBC (Bld) 0.1 % 0-5 [facility] Erythrocyte distribution wid th ratioOrdered By: Frankie Moreno on 03-07-2025 Erythrocyte distribution width (RBC) [Ratio] 13.2 % 11.6-14.6 [facility] Erythrocyte distribution wid th standard deviationOrdered By: Frankie Moreno on 03-07-2025 Erythrocyte distribution width (RBC) [Ratio] 41.3 fl 35.1-43.9 [facility] Hematocrit Auto (Bld) [Volum e fraction]Ordered By: Frankie Moreno on 03-07-2025 Hematocrit (Bld) [Volume fraction] 37.7 % Low 40-54 [facility] Hemoglobin measurementOrdere d By: Frankie Moreno on 03-07-2025 Hemoglobin (Bld) [Mass/Vol] 12.8 g/dL Low 13.0-16.5 [facility] Immature granulocytes/100 WB C Auto (Bld)Ordered By: Frankie Moreno on 03-07-2025 Immature granulocytes/100 WBC (Bld) 0.600 % 0.0-0.9 [facility] Comment on above: IG% - Immature Granu locytes (promyelocytes, myelocytes and metamyelocytes) > 1% indicates that a LEFT SHIFT is Present. MCV (mean corpuscular volume ) determinationOrdered By: Frankie Moreno on 03-07-2025 MCV (RBC) [Entitic vol] 86.3 fL 80-94 [facility] Mean corpuscular hemoglobin (MCH) determinationOrdered By: Frankie Moreno on 03-07-2025 MCH (RBC) [Entitic mass] 29.3 pg 27.0-32.0 [facility] Mean corpuscular hemoglobin concentration (MCHC) determinationOrdered By: Frankie Moreno on 03-07-2025 MCHC (RBC) [Mass/Vol] 34.0 g/dL 32-36 [facility] Mean platelet volume determi nationOrdered By: Frankie Moreno on 03-07-2025 Platelet mean volume (Bld) [Entitic vol] 10.5 fL 6.2-12.0 [facility] Monocyte percentageOrdered B y: Frankie Moreno on 03-07-2025 Monocytes/100 WBC (Bld) 8.3 % 0-10 [facility] Neutrophil percentageOrdered By: Frankie Moreno on 03-07-2025 Neutrophils/100 WBC (Bld) 82.5 % High 47-70 [facility] Nucleated red blood cell per centageOrdered By: Frankie Moreno on 03-07-2025 Nucleated RBC/100 WBC (Bld) [Ratio] 0 % 0-5 [facility] Platelet countOrdered By: Brandi Moreno on 03-07-2025 Platelets (Bld) [#/Vol] 373 10*3/uL 150-450 [facility] RBC Auto (Bld) [#/Vol]Ordere d By: Frankie Moreno on 03-07-2025 RBC (Bld) [#/Vol] 4.37 10*6/uL Low 4.6-6.2 [facility] White blood cell (WBC) count Ordered By: Frankie Moreno on 03-07-2025 WBC (Bld) [#/Vol] 15.9 10*3/uL High 4.4-11.0 [facility] Anion gap in Serum or Plasma Ordered By: Felecia Roland on 03-06-2025 Anion gap [Moles/Vol] 10 mmol/L 01-19 [facility] BUN/creatinine ratioOrdered By: Felecia Roland on 03-06-2025 Urea nitrogen/Creatinine [Mass ratio] 12.8 mg/mg 06-26 [facility] Basic Metabolic Profile (BMP )on 03-06-2025 BUN/CRE 12.8 RATIO Normal 06-26 [facility] Comment on above: Performed By: #### L 100.0100, L500.2500 ####[facility] [address] [place], [address] Calcium [Mass/Vol] 9.1 mg/dL Normal 7.6-11.0 [facility] Comment on above: Performed By: #### L 100.0100, L500.2500 ####[facility] [address] [place], [address] Chloride [Moles/Vol] 105 mmol/L Normal 98-108 [facility] Comment on above: Performed By: #### L 100.0100, L500.2500 ####[facility] [address] [place], [address] CO2 [Moles/Vol] 22.4 mmol/L Normal 21.0-32.0 [facility] Comment on above: Performed By: #### L 100.0100, L500.2500 ####[facility] [address] [place], [address] Creatinine [Mass/Vol] 0.73 mg/dL Normal 0.70-1.20 [facility] Comment on above: Performed By: #### L 100.0100, L500.2500 ####[facility] [address] [place], [address] ECRCL 154.86 ml/min Normal 50-250 [facility] Comment on above: Performed By: #### L 100.0100, L500.2500 ####[facility] [address] [place], [address] GAP 10 Normal 5-15 [facility] Comment on above: Performed By: #### L 100.0100, L500.2500 ####[facility] [address] [place], [address] GFR/1.73 sq M.predicted among non-blacks MDRD (S/P/Bld) [Vol rate/Area] 133 mL/min/{1.73_m2} Normal >60 [facility] Comment on above: Result Comment: mL/m in/1.73m2 CKD-EPI Creatinine Equation (2020) Performed By: #### L 100.0100, L500.2500 ####[facility] [address] [place], [address] Glucose [Mass/Vol] 95 mg/dL Normal 70-99 [facility] Comment on above: Performed By: #### L 100.0100, L500.2500 ####[facility] [address] [place], [address] Potassium [Moles/Vol] 3.9 mmol/L Normal 3.3-5.1 [facility] Comment on above: Performed By: #### L 100.0100, L500.2500 ####[facility] [address] [place], [address] Sodium [Moles/Vol] 138 mmol/L Normal 133-145 [facility] Comment on above: Performed By: #### L 100.0100, L500.2500 ####[facility] [address] [place], [address] Urea nitrogen [Mass/Vol] 9 mg/dL Normal 4-19 [facility] Comment on above: Performed By: #### L 100.0100, L500.2500 ####[facility] [address] [place], [address] CBC W/Diff, Automatedon 06-3 0-2025 Absolute Lymph 1.64 X10 3/uL Normal 0.83-4.51 [facility] Comment on above: Performed By: #### L 100.0100, L500.2500 ####[facility] [address] [place], [address] Absolute Neut 4.8 X10 3/uL Normal 2.0-7.7 [facility] Comment on above: Performed By: #### L 100.0100, L500.2500 ####[facility] [address] [place], [address] Basophils/100 WBC (Bld) 0.9 % Normal 0-1 [facility] Comment on above: Performed By: #### L 100.0100, L500.2500 ####[facility] [address] [place], [address] Eosinophils/100 WBC (Bld) 3.0 % Normal 0-5 [facility] Comment on above: Performed By: #### L 100.0100, L500.2500 ####[facility] [address] [place], [address] Erythrocyte distribution width (RBC) [Ratio] 13.4 % Normal 11.6-14.6 [facility] Comment on above: Performed By: #### L 100.0100, L500.2500 ####[facility] [address] [place], [address] Hematocrit (Bld) [Volume fraction] 39.3 % Low 40-54 [facility] Comment on above: Performed By: #### L 100.0100, L500.2500 ####[facility] [address] [place], [address] Hemoglobin (Bld) [Mass/Vol] 13.3 g/dL Normal 13.0-16.5 [facility] Comment on above: Performed By: #### L 100.0100, L500.2500 ####[facility] [address] [place], [address] IG% 0.400 Normal 0.0-0.9 [facility] Comment on above: Result Comment: IG% - Immature Granulocytes (promyelocytes, myelocytes and metamyelocytes) > 1% indicates that a LEFT SHIFT is Present. Performed By: #### L 100.0100, L500.2500 ####[facility] [address] [place], [address] Lymphocytes/100 WBC (Bld) 21.4 % Normal 19-41 [facility] Comment on above: Performed By: #### L 100.0100, L500.2500 ####[facility] [address] [place], [address] MCH (RBC) [Entitic mass] 29.4 pg Normal 27.0-32.0 [facility] Comment on above: Performed By: #### L 100.0100, L500.2500 ####[facility] [address] [place], [address] MCHC (RBC) [Mass/Vol] 33.8 g/dL Normal 32-36 [facility] Comment on above: Performed By: #### L 100.0100, L500.2500 ####[facility] [address] [place], [address] MCV (RBC) [Entitic vol] 86.9 fL Normal 80-94 [facility] Comment on above: Performed By: #### L 100.0100, L500.2500 ####[facility] [address] [place], [address] Monocytes/100 WBC (Bld) 12.0 % High 0-10 [facility] Comment on above: Performed By: #### L 100.0100, L500.2500 ####[facility] [address] [place], [address] Neutrophils/100 WBC (Bld) 62.3 % Normal 47-70 [facility] Comment on above: Performed By: #### L 100.0100, L500.2500 ####[facility] [address] [place], [address] Nucleated RBC (Bld) [#/Vol] 0 10*3/uL Normal 0-5 [facility] Comment on above: Performed By: #### L 100.0100, L500.2500 ####[facility] [address] [place], [address] Platelet mean volume (Bld) [Entitic vol] 10.1 fL Normal 6.2-12.0 [facility] Comment on above: Performed By: #### L 100.0100, L500.2500 ####[facility] [address] [place], [address] Platelets (Bld) [#/Vol] 346 10*3/uL Normal 150-450 [facility] Comment on above: Performed By: #### L 100.0100, L500.2500 ####[facility] [address] [place], [address] RBC (Bld) [#/Vol] 4.52 10*6/uL Low 4.6-6.2 [facility] Comment on above: Performed By: #### L 100.0100, L500.2500 ####[facility] [address] [place], [address] RDW SD 42.5 fl Normal 35.1-43.9 [facility] Comment on above: Performed By: #### L 100.0100, L500.2500 ####[facility] [address] [place], [address] WBC (Bld) [#/Vol] 7.7 10*3/uL Normal 4.4-11.0 [facility] Comment on above: Performed By: #### L 100.0100, L500.2500 ####[facility] [address] [facility] [place], [address] Carbon dioxide, total [Moles /volume] in Central venous bloodOrdered By: Felecia Roland on 03-06-2025 CO2 [Moles/Vol] 22.4 mmol/L 21.0-32.0 [facility] Chloride assayOrdered By: Kofi Roland on 03-06-2025 Chloride [Moles/Vol] 105 mmol/L 98-108 [facility] Consultation - Urologyon Consultation - Urology [facility] Medical Records Department [address] [place] [address] Consultation - Urology 03/06/25 0726 MR#: [id number] Acct: [id number] Name: JESSICA BARR Rep #: [id number] : 2005 19 From: Feliz Van MD PCP: Mitali Mosher NP-Bereket Status:ADM IN [place] [facility] [place] Assessment Plan Assessment/Plan (1) Mass of right testicle: PLAN: Plan to proceed with a right radical orchiectomy suspected testicular mass on the right testicle (2) Pain in right testicle: (3) Physical exam, routine: HPI Consult Data Date of Consult: 03/06/25 HPI Narrative Reason for Consultation: Solid right testicular mass HPI Narrative: JESSICA BARR, is a 19 M who presents to the emergency room with second time with pain in the right testicle he has a enlarging mass on ultrasound this demonstrated vascular and enlarging mass in the right testicle this is very concerning for a malignancy patient was admitted for pain control taken to surgery immediately today for a right radical orchiectomy this is very likely a testicular cancer. [facility] Medical History Smoker Depression Anxiety Home Medications ???Medication ???Instructions ???Recorded ???Last Taken ???Type hydrocodone-acetaminophen 5-325mg 1 tab PO Q6H PRN PRN Pain 3 days 03/05/25 Unknown Rx 5mg-325mg #12 TABLETS ondansetron 4 mg disintegrating 4 mg PO Q6H PRN nausea and 5 Unknown Rx tablet vomiting #12 tabs Allergy/AdvReac Type Severity Reaction Status Date / Time No Known Allergies Allergy Verified 03/05/25 14:35 Surgical History Status post open reduction and internal fixation (ORIF) of fracture Social History Smoking Status: Current every day smoker tobacco type: cigarettes and e-cigarettes alcohol intake: current alcohol intake frequency: a few times a month substance use type: marijuana ROS Constitutional Constitutional: Denies chills, fever(s) or malaise Eyes Eyes: Denies blurry vision or change in vision ENT HEENT: Reports none Cardiovascular Cardiovascular: Denies chest pain or palpitations Respiratory/Chest Respiratory/Chest: Denies cough or shortness of breath with exertion Gastrointestinal Gastrointestinal: Denies abdominal pain, constipation or diarrhea Musculoskeletal Musculoskeletal: Denies back pain, joint stiffness or joint swelling Integumentary Integumentary: Denies dry skin, jaundice, lesions or rash Neurologic Neurologic: Denies confusion, syncope or weakness Psychiatric Psychiatric: Reports none; Denies anxiety or depression Endocrine Endocrinology: Denies excessive sweating, fatigue or flushing Hematologic/Lymphatic Hematologic/Lymphatic: Denies anemia, easy bleeding or easy bruising Lab / Micro Data 03/06/25 05:12 03/06/25 05:12 Labs: Laboratory Results - last 24 hr 03/05/25 18:00: WBC 7.6, RBC 4.68, Hgb 13.4, Hct 40.0, MCV 85.5, MCH 28.6, MCHC 33.5, RDW Std Deviation 41.9, RDW Coeff of Emigdio 13.4, Plt Count 378, MPV 9.6, Immature Gran % (Auto) 0.300, Neut % (Auto) 58.8, Lymph % (Auto) 23.5, Erath % (Auto) 12.4 H, Eos % (Auto) 3.4, Baso % (Auto) 1.6 H, Absolute Neuts (auto) 4.5, Absolute Lymphs (auto) 1.78, Nucleated RBC % 0, Sodium 136, Potassium 4.4, Chloride 103, Carbon Dioxide 22.3, Anion Gap 10, BUN 6, Creatinine 0.71, Estim Creat Clear Calc 159.23, Est GFR (MDRD) Non-Af 134, BUN/Creatinine Ratio 9.0 L, Glucose 92, Calcium 9.1 03/06/25 05:12: WBC 7.7, RBC 4.52 L, Hgb 13.3, Hct 39.3 L, MCV 86.9, MCH 29.4, MCHC 33.8, RDW Std Deviation 42.5, RDW Coeff of Emigdio 13.4, Plt Count 346, MPV 10.1, Immature Gran % (Auto) 0.400, Neut % (Auto) 62.3, Lymph % (Auto) 21.4, Erath % (Auto) 12.0 H, Eos % (Auto) 3.0, Baso % (Auto) 0.9, Absolute Neuts (auto) 4.8, Absolute Lymphs (auto) 1.64, Nucleated RBC % 0, Sodium 138, Potassium 3.9, Chloride 105, Carbon Dioxide 22.4, Anion Gap 10, BUN 9, Creatinine 0.73, Estim Creat Clear Calc 154.86, Est GFR (MDRD) Non-Af 133, BUN/Creatinine Ratio 12.8, Glucose 95, Calcium 9.1 Imaging Radiology Impression Testicular Ultrasound 03/05/25 14:55 IMPRESSION: 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 Additional differential within the right testicle is torsion. Small hydrocele within the right. Reading Location: [facility] 03/06/25 0727 Cosigner Signature (if applicable): CC: SUMMER SESSIONS DIRECTOR-C Mitali Mosher Signed Normal [facility] Discharge Instructionon 02-07 Discharge Instruction [facility] Medical Records Department [address] [place] [address] Instructions for Home/Discharge Instructions 03/06/25 1403 MR#: [id number] Acct: [id number] Name: JESSICA BARR Rep #: [id number] : 2005 19 From: Feliz Van MD PCP: JUAN DANIEL BrownC Status:ADM IN Discharge Instructions Diet Discharge Diet: No restrictions DC O2, CPAP, BIPAP needs Home O2 Discharge instructions: No Dressing / Incision Discharge Activity: Return to Normal Activity and May Not Drive (while taking narcotic pain medications.) Dressing / Incision Call your doctor if you observe: Fever of 101 or Higher Follow Up Care Please Follow Up With: Feliz Van MD When: Call [phone] for an appointment to go over tissue results Test Results: Test results from this visit will be discussed in further detail at your follow-up appointment, if applicable. Discharge Plan Admission Admit Date/Time: 03/05/25 18:06 Attending Provider: Frankie Moreno Primary Care Provider: Mitali Mosher NP Consulting Providers: Feliz Van; Felecia Roland Instructions Forms: ED Work / School Excuse Additional Instructions / Restrictions: The ultrasound shows no significant changes from [...] MiraLAX or Dulcolax while using this medicine. Discharge Orders/Prescriptions Prescriptions: New hydrocodone-acetaminophen 5-325 mg tablet 1 tab PO Q6H PRN PRN (Reason: Pain) 3 Days Qty: 12 0RF ondansetron 4 mg tablet,disintegrating 4 mg PO Q6H PRN (Reason: nausea and vomiting) Qty: 12 0RF Referrals / Follow Up: Feliz Van MD [Med Staff - Active Staff] - Mitali Mosher NP, NP-C [Primary Care Provider] - 03/06/25 1404 Feliz Van MD CC: ALEJANDRO Mosher; Dr. Feliz Van MD; Dr. Felecia Roland MD Signed Normal [facility] Glomerular filtration rate ( GFR) estimation/1.73 sq m using serum, plasma, or whole bOrdered By: Felecia Roland on 03-06-2025 GFR/1.73 sq M.predicted among non-blacks MDRD (S/P/Bld) [Vol rate/Area] 133 mL/min/{1.73_m2} >60 [facility] Comment on above: mL/min/1.73m2 CKD-EP I Creatinine Equation (2020) LDHon 03-06-2025 LDH 176 U/L Normal 87-241 [facility] Comment on above: Order Comment: 1 Performed By: #### L 504.2610 ####[facility] [address] [place], [address] Lactate dehydrogenase (LDH) measurementOrdered By: Frankie Moreno on 03-06-2025 LDH [Catalytic activity/Vol] 176 U/L 87-241 [facility] MR/POSTOP.ANEon 03-06-2025 MR/POSTOP.ANE [facility] Medical Records Department [address] [place] [address] Anesthesia Postop Eval I 03/06/25 1317 MR#: [id number] Acct: [id number] Name: JESSICA BARR Rep #: [id number] : 2005 19 From: Darya Borrego CRNA PCP: ALEJANDRO Brown Status:ADM IN Y Race: C Location: [place] [address]-1 Anesthesia: Postop Eval I Current Vital Signs Temperature: 98 F Pulse Rate: 79 Blood Pressure: 118/61 Respiratory Rate: 20 Pulse Ox: 97 Assessment Airway patent: Yes Spontaneous unlabored respirations: Yes nausea: No Vomiting: No Anesthesia Complication: No Fluid Hydration Crystalloid volume administer (ml): 800 Total IV fluid infused: 800 Progress Note Anesthesia document: Postop Eval 1 completed: Yes 03/06/25 1317 Date Darya Borrego CONVEYOR SYSTEM OPERATOR Cosigner Signature: Date CC: Signed Normal [facility] MR/CIFGTWHE1ls 03-06-2025 MR/POSTOPAN2 [facility] Medical Records Department [address] [place] [address] Anesthesia Postop Eval II 03/06/25 164 MR#: [id number] Acct: [id number] Name: MIKEJATINJESSICA HAZEL Rep #: [id number] : 2005 19 From: Darya Borrego CRNA PCP: Mitali Mosher NP-C Status:ADM IN Y Race: C Location: [place] [address] Anesthesia Postop Eval I Sum Postop Eval Completion status Anesthesia document: Postop Eval 1 completed: Yes Anesthesia Postop Eval I Summary Anesthesia Postop Eval I Summary: Anesthesia Postop Eval I: Assessment Summary Airway patent Yes 03/06/25 13:17 CONVEYOR SYSTEM OPERATOR.CSIR Spontaneous unlabored Yes 03/06/25 13:17 CONVEYOR SYSTEM OPERATOR.CSIR respirations Mental status nausea No 03/06/25 13:17 CONVEYOR SYSTEM OPERATOR.CSIR Vomiting No 03/06/25 13:17 CONVEYOR SYSTEM OPERATOR.CSIR Anesthesia Postop Eval I: Fluid Summary Crystalloid volume administer 800 03/06/25 13:17 CONVEYOR SYSTEM OPERATOR.CSIR (ml) Colloids volume administered ( ml) Blood Product volume administered (ml) Total IV fluid infused 800 03/06/25 13:17 CONVEYOR SYSTEM OPERATOR.CSIR Anesthesia Postop Eval I: Summary Notes Anesthesia Complication No 03/06/25 13:17 CONVEYOR SYSTEM OPERATOR.CSIR Anesthesia Complication Comment: Post-operative progress note Anesthesia: Postop Eval II Evaluation Mental status: Awake Pain Level: 1 nausea: No Vomiting: No 03/06/25 1645 Date Darya Redmanigner Signature: Date CC: Signed Normal [facility] Operative Reporton 5 Operative Report [facility] Medical Records Department [address] [place] [address] Operative Report 03/06/25 1301 MR#: [id number] Acct: [id number] Name: JESSICA BARR Rep #: [id number] : 2005 From: Feliz Van MD PCP: ALEJANDRO Brown Status:ADM IN Location: [place] [address]-1 Operative Report (Standard) Operative Information Date of Procedure: 03/06/25 Pre-Operative Diagnosis: Right testicular mass Post-Operative Diagnosis: The same Surgery/Procedure Performed: Right radical orchiectomy consumer marketing specialist: No Type of Anesthesia: General RN Documented Start/Stop Times: Operation Date: 03/06/25 12:00 Case Time Into Pre-Op 03/06/25 10:52 Out of Pre-Op 03/06/25 12:16 Anesthesia Start 03/06/25 12:20 Into Room 03/06/25 12:20 Procedure Start 03/06/25 12:35 Procedure Start Time: 12:35 Procedure Stop Time: 13:02 Select all DRAINS/GRAFTS/IMPLANTS that apply: None Estimated Blood Loss: None Specimen collected: No Description of surgery: Patient was seen in the preoperative area, he has an abnormal rigth testicle which on exam is abnormal and also has a ultrasound is abnormal on the right side. Because of this we discussed the potential risk for malignancy and working to proceed with a radical orchiectomy on the right side. He understands is possible that the testicle even the looks abnormal and feels abnormal may not be cancerous it could be scar tissue it could be inflammation or infection. He understands no guarantee that it is cancer. Also there is no guarantees that if we remove the testicle and he has cancer is cured and the patient may require more treatments such as chemotherapy and radiation if he does have testicle cancer. Preoperative tumor markers were drawn. We discussed the risk of the procedure including risk of getting a hernia at the site of surgery, infection or bleeding. We also discussed the possibility of low testosterone level and infertility with one testicle. Patient was taken back to the operating room at the smooth induction of anesthesia. The penis and genitals were prepped and draped in usual sterile fashion, the abdomen was shaved as well as the testicles were shaved. The side of the orchiectomy which is the right side was marked. A timeout was performed. I then made a inguinal incision on the right side, dissected through the skin superficial fat Lynda's fascia with it was then incised there was a small blood vessel across Lynda's fascia that was cauterized and suture-ligated. The I then came across the top of the inguinal canal and opened up the inguinal canal with a joker. We then encircled the blood vessels and performed high ligation of the testicle I then dissected out the testicle on the right side and delivered it from the testicle through the inguinal incision. We then dissected using electrocautery to free the testicle from the scrotum and transected through the gubernaculum. And the testicle was placed into a container and sent to pathology. We then made sure that the vessels were clear and there were not bleeding we irrigated the wound we closed the anterior layer of the inguinal canal with interrupted stitches and then we closed the Lynda's fascia and then closed the skin with subcuticular stitches. All needles stitches were accounted for. There was a complete count at the end of the case after closure. Patient was taken back to the PACU in stable condition. Surgical Findings: Solid mass in the right testicle removed completely right at the radical orchiectomy Complications Complications: No Admit VTE Documentation VTE Present on Admission: No VTE Mechan Device Prophylaxis: SCD's VTE Pharm Prophylaxis ordered?: No 03/06/25 1304 Cosigner Signature (if applicable): CC: ALEJANDRO Mosher; Dr. Feliz Van MD; Dr. Felecia Roland MD Signed Normal [facility] Potassium measurement (mass/ volume)Ordered By: Felecia Roland on 03-06-2025 Potassium (Unsp spec) [Mass/Vol] 3.9 mmol/L 3.3-5.1 [facility] Serum creatinine measurement (mass/volume)Ordered By: Felecia Roland on 03-06-2025 Creatinine [Mass/Vol] 0.73 mg/dL 0.70-1.20 [facility] Serum glucose measurement (m ass/volume)Ordered By: Felecia Roland on 03-06-2025 Glucose [Mass/Vol] 95 mg/dL 70-99 [facility] Serum or plasma calcium erica urement (mass/volume)Ordered By: Felecia Roland on 03-06-2025 Calcium [Mass/Vol] 9.1 mg/dL 7.6-11.0 [facility] Serum or plasma urea nitroge n measurement (mass/volume)Ordered By: Felecia Roland on 03-06-2025 Urea nitrogen [Mass/Vol] 9 mg/dL 4-19 [facility] Sodium levelOrdered By: Ani Roland on 03-06-2025 Sodium [Moles/Vol] 138 mmol/L 133-145 [facility] Surgery Specimen Level VIon 03-06-2025 Surgery Specimen Level Patient Age/Sex Location Account Attending Physician JESSICA BARR 19/M MS3 [id number] [address]. Frankie Moreno MD Specimen: [id number] Received: 03/06/25 Status: RYAN Curry Num: [id number] Spec Type: TESTICLE Subm Dr: Dr. Feliz Van MD HEADER OPERATION: Orchiectomy, radical PRE-OP DIAGNOSIS: Solid right testicular mass TISSUE SUBMITTED: A- Right testicle MICROSCOPIC DIAGNOSIS A. 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 SYNOPTIC REPORT FOR TESTICULAR GERM CELL TUMOR: Procedure (r=radical orchiectomy):???R Laterality (r=right, l=left):???R Focality (u=unifocal, m=multifocal):???U Tumor size (cm):???3.2x3.0x2.9 cm Histologic types (with %): teratoma (50%),???embryonal 40%), yolk sac (10%). Lymphovascular invasion:???not identified ??? Tumor extent (n=no, y=yes, na=not applicable):? Invasion of rete stroma: N ? Invasion of epididymis: N ? Invasion of hilar fat: N ?Invasion of tunica vaginalis:???N ? Invasion of spermatic cord: N ? Invasion of scrotum:???NA ??? Margins (n=negative, p=positive, na=not applicable):???N ? Location positive margin:???NA ??? Regional lymph nodes (n=no, y=yes, na=not applicable): NA ? Number examined:???0 ? Number positive:???NA ? Size of largest involved node/mass (cm):???NA ? Extranodal extension:???NA ? Histologic types (with % if more than 1 type):???NA ??? Additional findings:???NONE pTNM:???pT1b???NX Comments:???IHC utilized in the assessment - betaHCG AFP CD30 ANNITA-3 [place]-3 ? The above synoptic report complies, in slightly modified form, with the guidelines of the Patient Age/Sex Location Account Attending Physician JESSICA BARR 19/M MS3 [id number] Dr. Frankie Moreno MD [employer] and the [employer] of Directors of Anatomic and Surgical Pathology for the reporting of cancer specimens. COMMENT Selected slides/images were reviewed in intradepartmental consultation by Dr Davy Graham ( pathology division, [facility]). MICROSCOPIC DESCRIPTION Slides are reviewed. All controls show appropriate reactivity. All immunohistochemistry, in situ hybridization, and histochemical tests were developed by and are performed at the [facility], [address] [place] [address]. All Immunofluorescent (IF)???tests were developed by and are performed at the [facility], [address] [place] [address] ???[facility]. All tests reported here, except those addressing HER2 overexpression as a predictive marker, have not been cleared by or approved by the US Food and Drug Administration (FDA). The laboratory is regulated under CLIA as qualified to perform high-complexity testing. The tests are used for clinical purposes. They should not be regarded as investigational or for research. GROSS DESCRIPTION A. Received in formalin labeled with the patient's name and date of . Designated as right testicle is a 38.9 g radical orchiectomy comprised of a testicle measuring 5.0 x 3.6 x 2.8 cm and attached spermatic cord, 6.0 cm in length x 1.3-1.8 cm in diameter. The spermatic cord margin is shaved. The specimen is inked as follows: Spermatic cord: [place] Tunica vaginalis: Black Tunica albuginea: Blue The testicle is bivalved, revealing a 3.2 x 3.0 x 2.9 cm clemons-white to proctor, somewhat mucinous and focally congested mass. The mass is confined to the testicle. The mass is located 0.6 cm from the epididymis and >4.5 cm from the spermatic cord margin. The mass does not involve the tunica vaginalis, spermatic cord or epididymis. The mass grossly abuts the tunica albuginea and rete testes. The uninvolved testicular parenchyma is clemons with seminiferous tubules that string with ease. International Coordinator sections are submitted as follows: A1: Spermatic cord margin, shavedA2: Spermatic cord cross-sectionsA3: Mass to tunica albugineaA4: Mass to epididymisA5: Mass to rete testesA6: (more content not included)... Normal [facility] Comment on above: Performed By: #### P SUVI ####[facility] [address] [place], [address] Basic Metabolic Profile (BMP )on 03-05-2025 BUN/CRE 9.0 RATIO Low 10-20 [facility] Comment on above: Performed By: #### L 3300.0700 #### [facility] [address] [place], [address] Calcium [Mass/Vol] 9.1 mg/dL Normal 7.6-11.0 [facility] Comment on above: Performed By: #### L 3300.0700 #### [facility] [address] [place], [address] Chloride [Moles/Vol] 103 mmol/L Normal 98-108 [facility] Comment on above: Performed By: #### L 3300.0700 #### [facility] [address] [place], [address] CO2 [Moles/Vol] 22.3 mmol/L Normal 21.0-32.0 [facility] Comment on above: Performed By: #### L 3300.0700 #### [facility] [address] [place], [address] Creatinine [Mass/Vol] 0.71 mg/dL Normal 0.70-1.20 [facility] Comment on above: Performed By: #### L 3300.0700 #### [facility] [address] [place], [address] ECRCL 159.23 ml/min Normal 50-250 [facility] Comment on above: Performed By: #### L 3300.0700 #### [facility] [address] [place], [address] GAP 10 Normal 5-15 [facility] Comment on above: Performed By: #### L 3300.0700 #### [facility] [address] [place], [address] GFR/1.73 sq M.predicted among non-blacks MDRD (S/P/Bld) [Vol rate/Area] 134 mL/min/{1.73_m2} Normal >60 [facility] Comment on above: Result Comment: mL/m in/1.73m2 CKD-EPI Creatinine Equation (2020) Performed By: #### L 3300.0700 #### [facility] [address] [place], [address] Glucose [Mass/Vol] 92 mg/dL Normal 70-99 [facility] Comment on above: Performed By: #### L 3300.0700 #### [facility] [address] [place], [address] Potassium [Moles/Vol] 4.4 mmol/L Normal 3.3-5.1 [facility] Comment on above: Performed By: #### L 3300.0700 #### [facility] [address] [place], [address] Sodium [Moles/Vol] 136 mmol/L Normal 133-145 [facility] Comment on above: Performed By: #### L 3300.0700 #### [facility] [address] [place], [address] Urea nitrogen [Mass/Vol] 6 mg/dL Normal 4-19 [facility] Comment on above: Performed By: #### L 3300.0700 #### [facility] [address] [place], [address] CBC W/Diff, Automatedon 06-2 Absolute Lymph 1.78 X10 3/uL Normal 0.83-4.51 [facility] Comment on above: Performed By: #### L 3300.0700 #### [facility] [address] [place], [address] Absolute Neut 4.5 X10 3/uL Normal 2.0-7.7 [facility] Comment on above: Performed By: #### L 3300.0700 #### [facility] [address] [place], [address] Basophils/100 WBC (Bld) 1.6 % High 0-1 [facility] Comment on above: Performed By: #### L 3300.0700 #### [facility] [address] [place], [address] Eosinophils/100 WBC (Bld) 3.4 % Normal 0-5 [facility] Comment on above: Performed By: #### L 3300.0700 #### [facility] [address] [place], [address] Erythrocyte distribution width (RBC) [Ratio] 13.4 % Normal 11.6-14.6 [facility] Comment on above: Performed By: #### L 3300.0700 #### [facility] [address] [place], [address] Hematocrit (Bld) [Volume fraction] 40.0 % Normal 40-54 [facility] Comment on above: Performed By: #### L 3300.0700 #### [facility] [address] [place], [address] Hemoglobin (Bld) [Mass/Vol] 13.4 g/dL Normal 13.0-16.5 [facility] Comment on above: Performed By: #### L 3300.0700 #### [facility] [address] [place], [address] IG% 0.300 Normal 0.0-0.9 [facility] Comment on above: Result Comment: IG% - Immature Granulocytes (promyelocytes, myelocytes and metamyelocytes) > 1% indicates that a LEFT SHIFT is Present. Performed By: #### L 3300.0700 #### [facility] [address] [place], [address] Lymphocytes/100 WBC (Bld) 23.5 % Normal 19-41 [facility] Comment on above: Performed By: #### L 3300.0700 #### [facility] [address] [place], [address] MCH (RBC) [Entitic mass] 28.6 pg Normal 27.0-32.0 [facility] Comment on above: Performed By: #### L 3300.0700 #### [facility] [address] [place], [address] MCHC (RBC) [Mass/Vol] 33.5 g/dL Normal 32-36 [facility] Comment on above: Performed By: #### L 3300.0700 #### [facility] [address] [place], [address] MCV (RBC) [Entitic vol] 85.5 fL Normal 80-94 [facility] Comment on above: Performed By: #### L 3300.0700 #### [facility] [address] [place], [address] Monocytes/100 WBC (Bld) 12.4 % High 0-10 [facility] Comment on above: Performed By: #### L 3300.0700 #### [facility] [address] [place], [address] Neutrophils/100 WBC (Bld) 58.8 % Normal 47-70 [facility] Comment on above: Performed By: #### L 3300.0700 #### [facility] [address] [place], [address] Nucleated RBC (Bld) [#/Vol] 0 10*3/uL Normal 0-5 [facility] Comment on above: Performed By: #### L 3300.0700 #### [facility] [address] [place], [address] Platelet mean volume (Bld) [Entitic vol] 9.6 fL Normal 6.2-12.0 [facility] Comment on above: Performed By: #### L 3300.0700 #### [facility] [address] [place], [address] Platelets (Bld) [#/Vol] 378 10*3/uL Normal 150-450 [facility] Comment on above: Performed By: #### L 3300.0700 #### [facility] [address] [place], [address] RBC (Bld) [#/Vol] 4.68 10*6/uL Normal 4.6-6.2 [facility] Comment on above: Performed By: #### L 3300.0700 #### [facility] [address] [place], [address] RDW SD 41.9 fl Normal 35.1-43.9 [facility] Comment on above: Performed By: #### L 3300.0700 #### [facility] [address] [place], [address] WBC (Bld) [#/Vol] 7.6 10*3/uL Normal 4.4-11.0 [facility] Comment on above: Performed By: #### L 3300.0700 #### [facility] [address] [place], [address] Emergency Department Summary on 03-05-2025 Emergency Department Summary [facility] Medical Records Department [address] [place] [address] Emergency Department Summary 03/05/25 MR#: [id number] Acct: [id number] Name: JESSICA BARR Rep #: [id number] : 2005 19 From: Batsheva KIRBY PCP: Mitali Mosher [employer]MER SESSIONS DIRECTOR-C Status:ADM IN Location: [place] [address] Patient was seen and examined with physician magistrate assistant Batsheva All components of the history and physical confirmed and agreed. History of present illness and physical exam: Patient 19-year-old male with no known significant past medical history who presents to the emergency department with a chief complaint of right testicular pain. Once again I saw this patient yesterday and he states that this has been going on for at least a week if not longer. 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 He states that he has been taking a lot of ibuprofen this morning to try to control the pain this was not helping. Review of systems: Agree with above Physical exam: Agree with above will add on the genitourinary exam as this was performed by myself which she does have tenderness palpation of the right testicle however the testicle is in the normal lie no concern Jennifer's gangrene, no urethral discharge no inguinal hernias noted no tenderness palpation in the left testicle no overlying skin changes no rashes or lesions MDM patient is a 19-year-old male who presents to the emergency department chief complaint of right testicular pain. Once again he was evaluated yesterday here by myself and he came back with what he describes worsening pain and swelling. On the differential diagnose includes Melamin to testicular cancer as there is a mass noted yesterday, torsion, UTI, orchitis, epididymitis. Repeat ultrasound will be performed. Repeat ultrasound was performed and showed a complex vascular mass within the right testicle measuring 3.3 x 2.6 x 2.4 cm which is grossly stable in size. Small hydrocele within the right. We reached out to on-call urologist Dr. Van who originally states that the patient go home with pain control and follow-up in the office tomorrow morning however he did call back and noted that he would like the patient admitted and will plan for surgery tomorrow. Patient is agreeable this plan as well. Patient's case was discussed with hospitalist Dr. Roland who accept patient for admission. Final impression: Right testicular mass Right testicular pain Disposition: Patient will be admitted to the hospital Supervising attending attestation: Kobe FISHER History of Present Illness Chief Complaint: Male Pain/Injury Narrative Narrative: 19-year-old male with no past medical history has had 1 week of right testicular pain and swelling. He was seen here yesterday and had a testicular ultrasound with a complex vascular mass. Dr. Van reviewed it and thought this was testicular cancer. 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 He is taking ibuprofen. No direct trauma. No urinary symptoms. No fever or chills. PFSH PFS Medical History Depression Anxiety Home Medications ???Medication ???Instructions ???Recorded ???Last Taken ???Type gabapentin 100 mg capsule 100 mg PO TID 03/05/25 Unknown His tory hydrocodone-acetaminophen 5-325mg 1 tab PO Q6H PRN PRN Pain 3 days 03/05/25 Unknown Rx 5mg-325mg #12 TABLETS ondansetron 4 mg disintegrating 4 mg PO Q6H PRN nausea and 5 Unknown Rx tablet vomiting #12 tabs Allergy/AdvReac Type Severity Reaction Status Date / Time No Known Allergies Allergy Verified 03/05/25 14:35 Surgical History Status post open reduction and internal fixation (ORIF) of fracture Social History Smoking Status: Current every day smoker tobacco type: cigarettes and e-cigarettes alcohol intake: current alcohol intake frequency: a few times a month substance use type: marijuana ROS ROS ED ROS Narrative Constitutional: Negative for fever, chills, malaise. GI: Negative for abdominal pain, nausea, vomiting. : Negative for dysuria, hematuria or frequency. EXAM Physical Exam Narrative Exam Narrative: CONST: Patient sitting in no acute distress. EYES: Normal inspection. NECK: Normal inspection. RESP: No respiratory distress, CTAB. CVS: Regular rate and rhythm, no murmur, no gallop. ABD: Soft and nontender, no guarding or rebound, nondistended. : Right te (more content not included)... Normal [facility] H AND P Exam - [facility] 03-05-2025 H&P Exam - Hospitalist [facility] Medical Records Department [address] [place] [address] H P Exam - Hospitalist 03/05/25 1806 MR#: [id number] Acct: [id number] Name: JESSICA BARR Rep #: [id number] : 2005 19 From: Felecia Roland MD PCP: ALEJANDRO Brown Status:ADM IN [place] [facility] [id number] HPI - General General Date of Admission: 03/05/25 Date of Service: 03/05/25 Chief Complaint: Right testicular pain HPI Narrative JESSICA BARR, is a 19-year-old male presented [facility] 03/05/2025 with continued right testicular pain and swelling that has been going on for 1 week. Seen in the ED the day prior and had testicular ultrasound which showed complex vascular mass. Dr. Van reviewed it and thought it was testicular cancer and patient was discharged with plans for outpatient follow-up. Since yesterday he has been active and moving things around but this morning he woke up with increased pain and swelling of the testicle. Ultrasound redemonstrates the complex vascular mass in the right testicle and there is blood flow per radiologist to discussed with ED provider. ED spoke with Dr. Van who recommended he be admitted to medicine service, n.p.o. at midnight, and he will do surgery to remove the mass tomorrow. Hospitalist contacted for admission. In the ED patient afebrile, heart rate 73 with blood pressure 117/80, respiratory rate 19 and pulse ox 99% on room air. Labs completed the day prior and UA were benign. Patient evaluated at bedside. He reports he said the right sided testicular pain for the past week, is feeling little bit better now with the medications he received in the ED but notes the pain is starting to come back some, no fevers or chills, does smoke about a pack a day, has been very active, intermittently will get tingling in the tips of the first 3 fingers on his left hand and sometimes he will feel little bit weak in that area, presently only little bit of tingling in the tip of his middle finger without any weakness. Reports sometimes he gets difficulty urinating when the pain in his testicles severe, no abdominal pain or diarrhea [facility] Medical History Depression Anxiety Home Medications ???Medication ???Instructions ???Recorded ???Last Taken ???Type hydrocodone-acetaminophen 5-325mg 1 tab PO Q6H PRN PRN Pain 3 days 03/05/25 Unknown Rx 5mg-325mg #12 TABLETS ondansetron 4 mg disintegrating 4 mg PO Q6H PRN nausea and 5 Unknown Rx tablet vomiting #12 tabs Allergy/AdvReac Type Severity Reaction Status Date / Time No Known Allergies Allergy Verified 03/05/25 14:35 Surgical History Status post open reduction and internal fixation (ORIF) of fracture Social History Smoking Status: Current every day smoker tobacco type: cigarettes and e-cigarettes alcohol intake: current alcohol intake frequency: a few times a month substance use type: marijuana ROS ROS Narrative General: Denies fever/chills HENT: Denies headache, denies stuffy nose, denies sore throat EYES: Denies changes in vision Resp: Denies cough, denies shortness of breath Cardiac: Denies chest pain GI: Denies abdominal pain, denies changes in bowel, denies nausea/vomiting : Right-sided scrotal pain, sometimes difficulty in urinating when the pain is severe Extremity: Denies swelling MSK: Denies weakness Neuro: Gets some tingling intermittently in the tips of his fingers on the left hand, first 3 fingers specifically Heme: Denies any bleeding or bruising Skin: Denies rashes Psychiatric: No complaints voiced Vital Signs Vital Signs Vital Signs: 03/05/25 14:33 03/05/25 17:27 Temperature 98.3 F 97.9 F Temperature Source Oral Pulse Rate 73 52 L Respiratory Rate 19 H 18 Blood Pressure 117/80 124/69 H Blood Pressure Mean 92 87 Pulse Ox 99 100 Weight Weight: 88.451 kg Body Mass Index (BMI) 28.8 Physical Exam Narrative General: Alert, oriented, no apparent distress HEENT: Atraumatic, normocephalic Eyes: Anicteric, normal conjunctiva, extraocular movements grossly intact Neck: Supple Respiratory: Clear to auscultation bilaterally, normal respiratory effort Cardiovascular: Regular rate and rhythm GI: Soft, nontender, nondistended : Does have some pain on palpation of right testicle, right testicle is also elevated compared to left, no left-sided changes or pain Extremities: No edema Musculoskeletal: Moving all extremities Neuro: No overt focal neurological deficits Skin: No rashes appreciated Psych: Cooperative Results Lab / Micro Data 03/05/25 18:00 03/05/25 18:00 Imaging Radiology Impression Testicula (more content not included)... Normal [facility] Testicular with Arterial Ervin won 03-05-2025 Testicular with Arterial Flow [facility] Imaging Services [address] [place] [address] Testicular with Arterial Flow MR#: [id number] Acct: [id number] Name: JESSICA BARR Rep #: [id number] : 2005 M 19 From: Mauricio Schrader PCP: ALEJANDRO Brown Status: REG ER Study: Testicular with Arterial Flow Date of Exam: Exam# [id number] Ordering Dr: Batsheva García PA ADDENDUM by Dr. Mauricio Obrien MD on 03/05/[address] Pisano was notified by Mauricio Obrien at 5:21 pm EST on 03/05/2025. Reading Location: [id number] 03/05/25 1720 Date cc: SUMMER SESSIONS DIRECTORWilliam Mosher; KOFI Amato * Signed PROCEDURE: TESTICULAR [...] Small hydrocele within the right. Reading Location: [facility] CC: ALEJANDRO Mosher; KOFI Amato Solvent Station Attendant: Signed Normal [facility] Absolute lymphocyte countOrd ered By: Kobe Pisano on 03-04-2025 Lymphocytes Auto (Unsp spec) [#/Vol] 1.06 10*3/uL 0.83-4.51 [facility] Absolute neutrophil countOrd ered By: Kobe Pisano on 03-04-2025 Neutrophils (Bld) [#/Vol] 5.7 10*3/uL 2.0-7.7 [facility] Amorphous sediment detection in urine sediment by light microscopyOrdered By: Kobe Pisano on 03-04-2025 Amorphous sediment LM Ql (Urine sed) 1+ [facility] Anion gap in Serum or Plasma Ordered By: Kobe Pisano on 03-04-2025 Anion gap [Moles/Vol] 10 mmol/L 5-15 [facility] Automated lymphocyte count a s percentage of total leukocytesOrdered By: Kobe Pisano on 03-04-2025 Lymphocytes/100 WBC Auto (Unsp spec) 13.7 % Low 19-41 [facility] BUN/creatinine ratioOrdered By: Kobe Pisano on 03-04-2025 Urea nitrogen/Creatinine [Mass ratio] 10.1 mg/mg 10-20 [facility] Basophil percentageOrdered B y: Kobe Norris on 03-04-2025 Basophils/100 WBC (Bld) 0.6 % 0-1 [facility] Bilirubin Test strip Ql (U)O rdered By: Kobe Pisano on 03-04-2025 Bilirubin Ql (U) Negative Negative [facility] Bilirubin, totalOrdered By: Kobe Pisano on 03-04-2025 Bilirubin [Mass/Vol] 0.65 mg/dL 0.00-1.30 [facility] CBC W/Diff, Automatedon 02-06 Absolute Lymph 1.06 X10 3/uL Normal 0.83-4.51 [facility] Comment on above: Performed By: #### L 3300.0700 #### [facility] [address] [place], [address] Absolute Neut 5.7 X10 3/uL Normal 2.0-7.7 [facility] Comment on above: Performed By: #### L 3300.0700 #### [facility] [address] [place], [address] Basophils/100 WBC (Bld) 0.6 % Normal 0-1 [facility] Comment on above: Performed By: #### L 3300.0700 #### [facility] [address] [place], [address] Eosinophils/100 WBC (Bld) 1.7 % Normal 0-5 [facility] Comment on above: Performed By: #### L 3300.0700 #### [facility] [address] [place], [address] Erythrocyte distribution width (RBC) [Ratio] 13.3 % Normal 11.6-14.6 [facility] Comment on above: Performed By: #### L 3300.0700 #### [facility] [address] [place], [address] Hematocrit (Bld) [Volume fraction] 42.1 % Normal 40-54 [facility] Comment on above: Performed By: #### L 3300.0700 #### [facility] [address] [place], [address] Hemoglobin (Bld) [Mass/Vol] 14.6 g/dL Normal 13.0-16.5 [facility] Comment on above: Performed By: #### L 3300.0700 #### [facility] [address] [place], [address] IG% 0.300 Normal 0.0-0.9 [facility] Comment on above: Result Comment: IG% - Immature Granulocytes (promyelocytes, myelocytes and metamyelocytes) > 1% indicates that a LEFT SHIFT is Present. Performed By: #### L 3300.0700 #### [facility] [address] [place], [address] Lymphocytes/100 WBC (Bld) 13.7 % Low 19-41 [facility] Comment on above: Performed By: #### L 3300.0700 #### [facility] [address] [place], [address] MCH (RBC) [Entitic mass] 29.4 pg Normal 27.0-32.0 [facility] Comment on above: Performed By: #### L 3300.0700 #### [facility] [address] [place], [address] MCHC (RBC) [Mass/Vol] 34.7 g/dL Normal 32-36 [facility] Comment on above: Performed By: #### L 3300.0700 #### [facility] [address] [place], [address] MCV (RBC) [Entitic vol] 84.7 fL Normal 80-94 [facility] Comment on above: Performed By: #### L 3300.0700 #### [facility] [address] [place], [address] Monocytes/100 WBC (Bld) 9.8 % Normal 0-10 [facility] Comment on above: Performed By: #### L 3300.0700 #### [facility] [address] [place], [address] Neutrophils/100 WBC (Bld) 73.9 % High 47-70 [facility] Comment on above: Performed By: #### L 3300.0700 #### [facility] [address] [place], [address] Nucleated RBC (Bld) [#/Vol] 0 10*3/uL Normal 0-5 [facility] Comment on above: Performed By: #### L 3300.0700 #### [facility] [address] [place], [address] Platelet mean volume (Bld) [Entitic vol] 9.6 fL Normal 6.2-12.0 [facility] Comment on above: Performed By: #### L 3300.0700 #### [facility] [address] [place], [address] Platelets (Bld) [#/Vol] 386 10*3/uL Normal 150-450 [facility] Comment on above: Performed By: #### L 3300.0700 #### [facility] [address] [place], [address] RBC (Bld) [#/Vol] 4.97 10*6/uL Normal 4.6-6.2 [facility] Comment on above: Performed By: #### L 3300.0700 #### [facility] [address] [place], [address] RDW SD 41.2 fl Normal 35.1-43.9 [facility] Comment on above: Performed By: #### L 3300.0700 #### [facility] [address] [place], [address] WBC (Bld) [#/Vol] 7.8 10*3/uL Normal 4.4-11.0 [facility] Comment on above: Performed By: #### L 3300.0700 #### [facility] [address] [place], [address] Carbon dioxide, total [Moles /volume] in Central venous bloodOrdered By: Kobe Pisano on 03-04-2025 CO2 [Moles/Vol] 24.1 mmol/L 21.0-32.0 [facility] Chloride assayOrdered By: Aleksandr Pisano on 03-04-2025 Chloride [Moles/Vol] 103 mmol/L 98-108 [facility] Comprehensive Metabolic Prof ilon 03-04-2025 Albumin [Mass/Vol] 4.1 g/dL Normal 3.5-5.0 [facility] Comment on above: Performed By: #### L 3300.0700 #### [facility] [address] [place], [address] Albumin/Globulin [Mass ratio] 1.7 {ratio} Normal 0.9-2.4 [facility] Comment on above: Performed By: #### L 3300.0700 #### [facility] [address] [place], [address] ALK PHOS 74 U/L Normal 40-129 [facility] Comment on above: Performed By: #### L 3300.0700 #### [facility] [address] [place], [address] ALT [Catalytic activity/Vol] 10 U/L Normal <=46 [facility] Comment on above: Performed By: #### L 3300.0700 #### [facility] [address] [place], [address] AST [Catalytic activity/Vol] 20 U/L Normal <=37 [facility] Comment on above: Performed By: #### L 3300.0700 #### [facility] [address] [place], [address] Bilirubin [Mass/Vol] 0.65 mg/dL Normal 0.00-1.30 [facility] Comment on above: Performed By: #### L 3300.0700 #### [facility] [address] [place], [address] BUN/CRE 10.1 RATIO Normal 10-20 [facility] Comment on above: Performed By: #### L 3300.0700 #### [facility] [address] [place], [address] Calcium [Mass/Vol] 9.4 mg/dL Normal 7.6-11.0 [facility] Comment on above: Performed By: #### L 3300.0700 #### [facility] [address] [place], [address] Chloride [Moles/Vol] 103 mmol/L Normal 98-108 [facility] Comment on above: Performed By: #### L 3300.0700 #### [facility] [address] [place], [address] CO2 [Moles/Vol] 24.1 mmol/L Normal 21.0-32.0 [facility] Comment on above: Performed By: #### L 3300.0700 #### [facility] [address] [place], [address] Creatinine [Mass/Vol] 0.83 mg/dL Normal 0.70-1.20 [facility] Comment on above: Performed By: #### L 3300.0700 #### [facility] [address] [place], [address] ECRCL 140.78 ml/min Normal 50-250 [facility] Comment on above: Performed By: #### L 3300.0700 #### [facility] [address] [place], [address] GAP 10 Normal 5-15 [facility] Comment on above: Performed By: #### L 3300.0700 #### [facility] [address] [place], [address] GFR/1.73 sq M.predicted among non-blacks MDRD (S/P/Bld) [Vol rate/Area] 128 mL/min/{1.73_m2} Normal >60 [facility] Comment on above: Result Comment: mL/m in/1.73m2 CKD-EPI Creatinine Equation (2020) Performed By: #### L 3300.0700 #### [facility] [address] [place], [address] Globulin (S) [Mass/Vol] 2.4 g/dL Normal 2.2-4.2 [facility] Comment on above: Performed By: #### L 3300.0700 #### [facility] [address] [place], [address] Glucose [Mass/Vol] 108 mg/dL High 70-99 [facility] Comment on above: Performed By: #### L 3300.0700 #### [facility] [address] [place], [address] Potassium [Moles/Vol] 4.7 mmol/L Normal 3.3-5.1 [facility] Comment on above: Performed By: #### L 3300.0700 #### [facility] [address] [place], [address] Sodium [Moles/Vol] 137 mmol/L Normal 133-145 [facility] Comment on above: Performed By: #### L 3300.0700 #### [facility] [address] [place], [address] T PROT 6.5 g/dL Normal 5.9-8.4 [facility] Comment on above: Performed By: #### L 3300.0700 #### [facility] [address] [place], [address] Urea nitrogen [Mass/Vol] 8 mg/dL Normal 4-19 [facility] Comment on above: Performed By: #### L 3300.0700 #### [facility] [address] [place], [address] Emergency Department Summary on 03-04-2025 Emergency Department Summary [facility] Medical Records Department [address] [place] [address] Emergency Department Summary 03/04/25 MR#: [id number] Acct: [id number] Name: JESSICA BARR Rep #: [id number] : 2005 19 From: Kobe Pisano DO [...] denies any painful urination hematuria polyuria PFSH [facility] Medical History Depression Anxiety Home Medications ???Medication [...] follow commands knew that he was at [facility] year is 2024 Skin: Warm, dry, [...] him followi (more content not included)... Normal [facility] Eosinophil percentageOrdered By: Kobe Pisano on 03-04-2025 Eosinophils/100 WBC (Bld) 1.7 % 0-5 [facility] Erythrocyte distribution wid th ratioOrdered By: Kobe Pisano on 03-04-2025 Erythrocyte distribution width (RBC) [Ratio] 13.3 % 11.6-14.6 [facility] Erythrocyte distribution wid th standard deviationOrdered By: Kobe Pisano on 03-04-2025 Erythrocyte distribution width (RBC) [Ratio] 41.2 fl 35.1-43.9 [facility] Glomerular filtration rate ( GFR) estimation/1.73 sq m using serum, plasma, or whole bOrdered By: Kobe Pisano on 03-04-2025 GFR/1.73 sq M.predicted among non-blacks MDRD (S/P/Bld) [Vol rate/Area] 128 mL/min/{1.73_m2} >60 [facility] Comment on above: mL/min/1.73m2 CKD-EP I Creatinine Equation (2020) Hematocrit Auto (Bld) [Volum e fraction]Ordered By: Kobe Pisano on 03-04-2025 Hematocrit (Bld) [Volume fraction] 42.1 % 40-54 [facility] Hemoglobin measurementOrdere d By: Kobe Pisano on 03-04-2025 Hemoglobin (Bld) [Mass/Vol] 14.6 g/dL 13.0-16.5 [facility] Immature granulocytes/100 WB C Auto (Bld)Ordered By: Kobe Pisano on 03-04-2025 Immature granulocytes/100 WBC (Bld) 0.300 % 0.0-0.9 [facility] Comment on above: IG% - Immature Granu locytes (promyelocytes, myelocytes and metamyelocytes) > 1% indicates that a LEFT SHIFT is Present. Ketones Test strip Ql (U)Ord ered By: Kobe Pisano on 03-04-2025 Ketones Ql (U) Negative Negative [facility] - Chemistry and C hemistry - challengeOrdered By: Kobe Pisano on 03-04-2025 AST [Catalytic activity/Vol] 20 U/L <38 [facility] MCV (mean corpuscular volume ) determinationOrdered By: Kobe Pisano 03-04-2025 MCV (RBC) [Entitic vol] 84.7 fL 80-94 [facility] Mean corpuscular hemoglobin (MCH) determinationOrdered By: Kobe Pisano on 03-04-2025 MCH (RBC) [Entitic mass] 29.4 pg 27.0-32.0 [facility] Mean corpuscular hemoglobin concentration (MCHC) determinationOrdered By: Kobe Pisano 03-04-2025 MCHC (RBC) [Mass/Vol] 34.7 g/dL 32-36 [facility] Mean platelet volume determi nationOrdered By: Kobe Pisano on 03-04-2025 Platelet mean volume (Bld) [Entitic vol] 9.6 fL 6.2-12.0 [facility] Microscopic analysis of urin e for red blood cells (RBC)Ordered By: Kobe Pisano on 03-04-2025 Microscopic analysis of urine for red blood cells (RBC) 0 SEEN /hpf 0-5 [facility] Monocyte percentageOrdered B y: Kobe Pisano on 03-04-2025 Monocytes/100 WBC (Bld) 9.8 % 0-10 [facility] Mucus LM Ql (Urine sed)Order ed By: Kobe Pisano on 03-04-2025 Mucus Ql (Urine sed) 0 SEEN /hpf [facility] Neutrophil percentageOrdered By: Kobe Pisano on 03-04-2025 Neutrophils/100 WBC (Bld) 73.9 % High 47-70 [facility] Nitrite Test strip Ql (U)Ord ered By: Kobe Pisano on 03-04-2025 Nitrite Ql (U) Negative Negative [facility] Nucleated red blood cell per centageOrdered By: Kobe Pisano on 03-04-2025 Nucleated RBC/100 WBC (Bld) [Ratio] 0 % 0-5 [facility] Platelet countOrdered By: Aleksandr Pisano on 03-04-2025 Platelets (Bld) [#/Vol] 386 10*3/uL 150-450 [facility] Potassium measurement (mass/ volume)Ordered By: Kobe Pisano on 03-04-2025 Potassium (Unsp spec) [Mass/Vol] 4.7 mmol/L 3.3-5.1 [facility] Protein Test strip Ql (U)Ord ered By: Kobe Pisano on 03-04-2025 Protein Ql (U) 15 mg/dl High Negative [facility] RBC Auto (Bld) [#/Vol]Ordere d By: Kobe Pisano on 03-04-2025 RBC (Bld) [#/Vol] 4.97 10*6/uL 4.6-6.2 [facility] Serum creatinine measurement (mass/volume)Ordered By: Kobe Pisano on 03-04-2025 Creatinine [Mass/Vol] 0.83 mg/dL 0.70-1.20 [facility] Serum globulin measurementOr dered By: Kobe Pisano on 03-04-2025 Globulin (S) [Mass/Vol] 2.4 g/dL 2.2-4.2 [facility] Serum glucose measurement (m ass/volume)Ordered By: Kobe Pisano on 03-04-2025 Glucose [Mass/Vol] 108 mg/dL High 70-99 [facility] Serum or plasma alanine duval otransferase (ALT) measurementOrdered By: Kobe Pisano on 03-04-2025 ALT [Catalytic activity/Vol] 10 U/L <47 [facility] Serum or plasma albumin erica urement (mass/volume)Ordered By: Kobe Pisano on 03-04-2025 Albumin [Mass/Vol] 4.1 g/dL 3.5-5.0 [facility] Serum or plasma albumin/glob ulin mass ratioOrdered By: Kobe Pisano on 03-04-2025 Albumin/Globulin [Mass ratio] 1.7 {ratio} 0.9-2.4 [facility] Serum or plasma alkaline memo sphatase measurementOrdered By: Kobe Pisano on 03-04-2025 ALP [Catalytic activity/Vol] 74 U/L 40-129 [facility] Serum or plasma calcium erica urement (mass/volume)Ordered By: Kobe Pisano on 03-04-2025 Calcium [Mass/Vol] 9.4 mg/dL 7.6-11.0 [facility] Serum or plasma urea nitroge n measurement (mass/volume)Ordered By: Kobe Pisano on 03-04-2025 Urea nitrogen [Mass/Vol] 8 mg/dL 4-19 [facility] Sodium levelOrdered By: Severo Pisano on 03-04-2025 Sodium [Moles/Vol] 137 mmol/L 133-145 [facility] Squamous epithelial cells de tection in urine sediment by light microscopyOrdered By: Kobe Pisano on 03-04-2025 Epithelial cells.squamous LM Ql (Urine sed) 0 SEEN /hpf 0-5 [facility] Testicular with Arterial Ervin won 03-04-2025 Testicular with Arterial Flow [facility] Imaging Services [address] [place] [address] Testicular with Arterial Flow MR#: [id number] Acct: [id number] Name: JESSICA BARR Rep #: [id number] : 2005 M 19 From: Mauricio Schrader PCP: ALEJANDRO Brown Status: REG ER Study: Testicular with Arterial Flow Date of Exam: Exam# [id number] Ordering Dr: Kobe Pisano DO PROCEDURE: TESTICULAR [...] testicular torsion. Small right-sided hydrocele. Reading Location: [facility] CC: ALEJANDRO Mosher; Dr. Kobe Pisano DO Solvent Station Attendant: Signed Normal [facility] Total proteinOrdered By: Yaquelin Pisano on 03-04-2025 Protein [Mass/Vol] 6.5 g/dL 5.9-8.4 [facility] Urinalysis, Completeon 03-04 AMORPHOUS 1+ Normal [facility] Comment on above: Order Comment: CLEAN CATCH Performed By: #### L 3300.0700 #### [facility] [address] [place], [address] BACTERIA 0 SEEN Normal None Seen [facility] Comment on above: Order Comment: CLEAN CATCH Performed By: #### L 3300.0700 #### [facility] [address] [place], [address] EPI,SQUAMOUS 0 SEEN Normal 0-5 [facility] Comment on above: Order Comment: CLEAN CATCH Performed By: #### L 3300.0700 #### [facility] [address] [place], [address] Mucus Ql (Urine sed) 0 SEEN Normal [facility] Comment on above: Order Comment: CLEAN CATCH Performed By: #### L 3300.0700 #### [facility] [address] [place], [address] RBC 0 SEEN Normal 0-5 [facility] Comment on above: Order Comment: CLEAN CATCH Performed By: #### L 3300.0700 #### [facility] [address] [place], [address] WBC 0 SEEN Normal 0-5 [facility] Comment on above: Order Comment: CLEAN CATCH Performed By: #### L 3300.0700 #### [facility] [address] [place], [address] Urine clarityOrdered By: Yaquelin Pisano on 03-04-2025 Clarity (U) Clear Clear [facility] Urine color determinationOrd ered By: Kobe Pisano on 03-04-2025 Color (U) Yellow Yellow [facility] Urine glucose detectionOrder ed By: Kobe Pisano on 03-04-2025 Glucose Ql (U) Normal mg/dl Normal [facility] Urine leukocyte esterase det ection by dipstickOrdered By: Kobe Pisano on 03-04-2025 Leukocyte esterase Test strip Ql (U) Negative Negative [facility] Urine pHOrdered By: Kobe florence on 03-04-2025 pH (U) 8.0 [pH] 5.0 - 8.0 [facility] Urine sediment bacteria coun t by microscopy (number/high power field)Ordered By: Kobe Pisano on 03-04-2025 Bacteria LM.HPF (Urine sed) [#/Area] 0 /[HPF] None Seen [facility] Urine specific gravity measu rementOrdered By: Kobe Pisano on 03-04-2025 Specific gravity (U) [Rel density] 1.015 1.002-1.03 0 [facility] Urine urobilinogen measureme ntOrdered By: Kobe Pisano on 03-04-2025 Urobilinogen Ql (U) Normal mg/dl Normal [facility] White blood cell (WBC) count Ordered By: Kobe Pisano on 03-04-2025 WBC (Bld) [#/Vol] 7.8 10*3/uL 4.4-11.0 [facility] White blood cell countOrdere d By: Kobe Pisano on 03-04-2025 White blood cell count 0 SEEN /hpf 0-5 [facility] CNPNon 02-08-2025 CNPN Telephone (AGPOB1) -- JESSICA BARR ([id number]) 1 M Date Time Provider Department 02/08/25 JUSTO SALINAS AGPOB1 During your visit today, we recorded the following information about you: [place] Aura Mcguire 02/08/2025 2:23 PM Signed ----- [...] which facility was the patient seen at: [facility] bath Was an appointment scheduled (Y/N): N Person calling if other than patient: N Return call to if other than patient: N Best contact number: [phone] Thank you, Mario Kay February 08, 2025 10:20 AM [place] Broderick 02/13/2025 2:08 PM Signed Left message to schedule appointment Allergies As of Date: 02/08/2025 (No Known Allergies) Date Reviewed: 02/07/2025 Reviewed by: Mily Munson, RN - Fully Assessed Reason for Visit: [...] alcohol consumption [Z87.898] 03/03/2024 Encounter Status:Closed by YULISACO AURA YADAV on 02/13/25 [facility] ALLIED HEALTH 02-07-2025 ALLIED HEALTH HNO ID: [id number] Author: ANGELO RAMAN RT([place]) Service: Radiology Author Type: Technologist Type: Allied [...] PATIENT PRESENTS WITH AN IMPLANTABLE OR ATTACHED AFRICANA STUDIES PROFESSOR: No RADIOLOGY DEPARTMENT: General X-ray: Exam(s) Completed: Upper Extremity X-Ray(s): Elbow, left PERIPHERAL IV DATA: Not applicable SIGNED BY: Angelo Raman, RT(R) February 07, 2025 7:44 AM [facility] ED NOTEon 02-07-2025 ED NOTE HNO ID: [id number] Author: KAM WINKLER RN Service: Emergency Medicine [...] DATE: February 08, 2025 TIME: 10:09 AM [facility] ED NOTE HNO ID: [id number] Author: MILY MUNSON RN Service: Emergency Medicine Author Type: Registered Nurse Type: ED Notes Filed: 02/07/2025 08:41 Note Text: Pt verbalized understanding of home going instructions. [facility] ED NOTE HNO ID: [id number] Author: MILY MUNSON RN Service: Emergency Medicine Author Type: Registered Nurse Type: ED Notes Filed: 02/07/2025 07:23 Note Text: Pt c/o several weeks of numbness/tingling of left arm. Denies injury to left arm or neck. Observer [employer]ity [employer] equal and firm. Equal pulses present. [facility] ED PROV NOTEon 02-07-2025 ED PROV NOTE HNO ID: [id number] Author: GIRMA BOYD DO Service: Emergency Medicine [...] Grandmother - Coronary Artery Disease Maternal Grandfather MS - Coronary Artery Disease Paternal Grandfather MS - Breast Cancer Other Social History Tobacco [...] speech difficulty, weakness, light-headedness, numbness and headaches. Psychiatric/Behavioral: Negative for suicidal ideas. Physical Exam Vitals [...] motion of the elbow shoulder and wrist. Continuous Improvement Analyst strength intact. Intrinsic muscles of the hand [...] injuries all (more content not included)... Normal [facility] XR ELBOW 2V AP/LAT LTon XR ELBOW [...] erosion. Joint spaces are maintained. IMPRESSION: Unremarkable. Solvent Station Attendant: ISAAC Transcribe Date/Time: Feb 07 2025 7:53A Dictated by : SHASHA HOUSE MD This examination was interpreted and the report reviewed and electronically signed by: SHASHA HOUSE MD on Feb 07 2025 7:54AM EST [id number] Normal [facility] Emergency Department Summary on 01-29-2025 Emergency Department Summary [facility] Medical Records Department [address] [place] [address] Emergency Department Summary 01/29/25 MR#: [id number] Acct: [id number] Name: JESSICA BARR Rep #: [id number] : 2005 19 From: Lupillo Alvarado MD [...] Commands Oriented (more content not included)... Normal [facility] 36on 10-18-2024 36 Pt seen in ED in Jun as a trauma and found to have [...] a reminder for OPTIONAL repeat imaging. Normal [employer] [facility] XR WRIST MINIMUM 3 VIEWS RIG on 08-11-2024 XR WRIST MINIMUM 3 VIEWS RIGHT [...] 08/11/2024 3:52:26 PM Ordering Provider: DARREN CRONIN [facility] Culture, Blood (WB)on 2023 CUB Blood cultures x2 fr om two different sites No growth in 5 days. Normal [facility] Comment on above: Performed By: #### L 3300.0700 #### [facility] [address] [place], [address] CBC W/Diff, Automatedon 05-09 PATH REV Reviewed Normal [facility] Comment on above: Result Comment: Neut rophilic left shift. Thrombocytosis. Clinical correlation necessary. Casimiro Wynn M.D. 06/02/24 AMENDED REPORT 06/02/24 1410 PATH REV previously reported as: January foll Performed By: #### L 100.0100, L500.2500 #### [facility] [address] [place], [address] PATH REV Reviewed Normal [facility] Comment on above: Result Comment: Neut rophilic leukocytosis. Normocytic anemia. Thrombocytosis. Clinical correlation necessary. Casimiro Wynn M.D. 06/02/24 AMENDED REPORT 06/02/24 1407 PATH REV previously reported as: January foll Performed By: #### L 100.0100, L500.2500 #### [facility] [address] [place], [address] Basic Metabolic Profile (BMP )on 06-01-2024 BUN/CRE 24.5 RATIO High 10-20 [facility] Comment on above: Performed By: #### L 100.0100, L500.2500 #### [facility] [address] [place], [address] CA,Total 8.7 mg/dL Normal 8.5-10.1 [facility] Comment on above: Performed By: #### L 100.0100, L500.2500 #### [facility] [address] [place], [address] Chloride [Moles/Vol] 109 mmol/L High 98-107 [facility] Comment on above: Performed By: #### L 100.0100, L500.2500 #### [facility] [address] [place], [address] CO2 [Moles/Vol] 26.0 mmol/L Normal 21.0-32.0 [facility] Comment on above: Performed By: #### L 100.0100, L500.2500 #### [facility] [address] [place], [address] Creatinine [Mass/Vol] 0.70 mg/dL Normal 0.70-1.30 [facility] Comment on above: Result Comment: The validity of the calculated GFR GFRAA in patients over 70 years has not been determined. Clinical correlation is essential. Performed By: #### L 100.0100, L500.2500 #### [facility] [address] [place], [address] ECRCL 166.93 ml/min Normal [facility] Comment on above: Performed By: #### L 100.0100, L500.2500 #### [facility] [address] [place], [address] EST GFR - AA 184 mL/min Normal >60 [facility] Comment on above: Result Comment: Afri can Barbadian GFR Calc Performed By: #### L 100.0100, L500.2500 #### [facility] [address] [place], [address] GAP 5 Normal 5-15 [facility] Comment on above: Performed By: #### L 100.0100, L500.2500 #### [facility] [address] [place], [address] GFR/1.73 sq M.predicted among non-blacks MDRD (S/P/Bld) [Vol rate/Area] 152 mL/min/{1.73_m2} Normal >60 [facility] Comment on above: Result Comment: Non- GFR Calc Performed By: #### L 100.0100, L500.2500 #### [facility] [address] [place], [address] Glucose [Mass/Vol] 114 mg/dL High 74-106 [facility] Comment on above: Result Comment: Fast ing Glucose result from 100 to 125 mg/dL suggests IMPAIRED HOMEOSTASIS per A.D.A. criteria. Performed By: #### L 100.0100, L500.2500 #### [facility] [address] [place], [address] Potassium [Moles/Vol] 4.3 mmol/L Normal 3.5-5.1 [facility] Comment on above: Performed By: #### L 100.0100, L500.2500 #### [facility] [address] [place], [address] Sodium [Moles/Vol] 140 mmol/L Normal 136-145 [facility] Comment on above: Performed By: #### L 100.0100, L500.2500 #### [facility] [address] [place], [address] Urea nitrogen [Mass/Vol] 17 mg/dL Normal 7-18 [facility] Comment on above: Performed By: #### L 100.0100, L500.2500 #### [facility] [address] [place], [address] Culture, Throaton 06-01-2024 CUT Normal throat mary isolated. No beta-hemolytic streptococcus isolated. Normal [facility] Comment on above: Performed By: #### L 3300.0700 #### [facility] [address] [place], [address] Soft Tissue Neck WITH Contra ston 06-01-2024 Soft Tissue Neck WITH Contrast [facility] Imaging Services [address] [place] [address] Soft Tissue Neck WITH Contrast MR#: [id number] Acct: [id number] Name: JESSICA BARR Rep #: [id number] : 2005 M 19 From: Servando addison MD PCP: Care Physician,No Primary Status: ADM IN Study: Soft Tissue Neck WITH Contrast Date of Exam: 0 06/01/24 Exam# [id number] Ordering Dr: Yuriy Ding MD [id number] STUDY: CT SOFT TISSUE NECK WITH CONTRAST [...] FINDINGS: Normal bilateral parotid glands. Normal bilateral lab assistant spaces. Normal bilateral parapharyngeal spaces. Normal bilateral [...] 8:30 EDT Reading Location ID and State: [address] [place] [address] , Service support , CC: Dr. Yuriy Ding MD; No Primary Care Physician Solvent Station Attendant: Signed Normal [facility] Basic Metabolic Profile (BMP )on 05-31-2024 BUN/CRE 19.6 RATIO Normal 10-20 [facility] Comment on above: Performed By: #### L 500.2500, L100.0100 #### [facility] [address] [place], [place], [address] CA,Total 9.1 mg/dL Normal 8.5-10.1 [facility] Comment on above: Performed By: #### L 500.2500, L100.0100 #### [facility] [address] [place], [address] Chloride [Moles/Vol] 105 mmol/L Normal 98-107 [facility] Comment on above: Performed By: #### L 500.2500, L100.0100 #### [facility] [address] [place], [address] CO2 [Moles/Vol] 25.0 mmol/L Normal 21.0-32.0 [facility] Comment on above: Performed By: #### L 500.2500, L100.0100 #### [facility] [address] [place], [address] Creatinine [Mass/Vol] 0.61 mg/dL Low 0.70-1.30 [facility] Comment on above: Result Comment: The validity of the calculated GFR GFRAA in patients over 70 years has not been determined. Clinical correlation is essential. Performed By: #### L 500.2500, L100.0100 #### [facility] [address] [place], [address] ECRCL 191.56 ml/min Normal [facility] Comment on above: Performed By: #### L 500.2500, L100.0100 #### [facility] [address] [place], [address] EST GFR - AA 213 mL/min Normal >60 [facility] Comment on above: Result Comment: Afri can Barbadian GFR Calc Performed By: #### L 500.2500, L100.0100 #### [facility] [address] [place], [address] GAP 5 Normal 5-15 [facility] Comment on above: Performed By: #### L 500.2500, L100.0100 #### [facility] [address] [place], [address] GFR/1.73 sq M.predicted among non-blacks MDRD (S/P/Bld) [Vol rate/Area] 176 mL/min/{1.73_m2} Normal >60 [facility] Comment on above: Result Comment: Non- GFR Calc Performed By: #### L 500.2500, L100.0100 #### [facility] [address] [place], [address] Glucose [Mass/Vol] 151 mg/dL High 74-106 [facility] Comment on above: Result Comment: Fast ing Glucose result greater than or equal to 126 mg/dL suggests DIABETES MELLITUS per A.D.A. criteria. Performed By: #### L 500.2500, L100.0100 #### [facility] [address] [place], [address] Potassium [Moles/Vol] 4.2 mmol/L Normal 3.5-5.1 [facility] Comment on above: Performed By: #### L 500.2500, L100.0100 #### [facility] [address] [place], [address] Sodium [Moles/Vol] 135 mmol/L Low 136-145 [facility] Comment on above: Performed By: #### L 500.2500, L100.0100 #### [facility] [address] [place], [address] Urea nitrogen [Mass/Vol] 12 mg/dL Normal 7-18 [facility] Comment on above: Performed By: #### L 500.2500, L100.0100 #### [facility] [address] [place], [address] CBC W/Diff, Automatedon 09-2 SMEAR COMMENT SCANNED Normal [facility] Comment on above: Result Comment: NEUT ROPHILLIA PRESENT Performed By: #### L 500.2500, L100.0100 #### [facility] [address] [place], [address] Basic Metabolic Profile (BMP )on 05-30-2024 BUN/CRE 17.7 RATIO Normal 10-20 [facility] Comment on above: Performed By: #### L 100.0100 #### [facility] [address] [place], [address] CA,Total 9.6 mg/dL Normal 8.5-10.1 [facility] Comment on above: Performed By: #### L 100.0100 #### [facility] [address] [place], [address] Chloride [Moles/Vol] 104 mmol/L Normal 98-107 [facility] Comment on above: Performed By: #### L 100.0100 #### [facility] [address] [place], [address] CO2 [Moles/Vol] 27.0 mmol/L Normal 21.0-32.0 [facility] Comment on above: Performed By: #### L 100.0100 #### [facility] [address] [place], [address] Creatinine [Mass/Vol] 0.74 mg/dL Normal 0.70-1.30 [facility] Comment on above: Result Comment: The validity of the calculated GFR GFRAA in patients over 70 years has not been determined. Clinical correlation is essential. Performed By: #### L 100.0100 #### [facility] [address] [place], [address] ECRCL 157.91 ml/min Normal [facility] Comment on above: Performed By: #### L 100.0100 #### [facility] [address] [place], [address] EST GFR - AA 173 mL/min Normal >60 [facility] Comment on above: Result Comment: Afri can Barbadian GFR Calc Performed By: #### L 100.0100 #### [facility] [address] [place], [address] GAP 7 Normal 5-15 [facility] Comment on above: Performed By: #### L 100.0100 #### [facility] [address] [place], [address] GFR/1.73 sq M.predicted among non-blacks MDRD (S/P/Bld) [Vol rate/Area] 143 mL/min/{1.73_m2} Normal >60 [facility] Comment on above: Result Comment: Non- GFR Calc Performed By: #### L 100.0100 #### [facility] [address] [place], [address] Glucose [Mass/Vol] 122 mg/dL High 74-106 [facility] Comment on above: Result Comment: Fast ing Glucose result from 100 to 125 mg/dL suggests IMPAIRED HOMEOSTASIS per A.D.A. criteria. Performed By: #### L 100.0100 #### [facility] [address] [place], [address] Potassium [Moles/Vol] 4.2 mmol/L Normal 3.5-5.1 [facility] Comment on above: Performed By: #### L 100.0100 #### [facility] [address] [place], [address] Sodium [Moles/Vol] 138 mmol/L Normal 136-145 [facility] Comment on above: Performed By: #### L 100.0100 #### [facility] [address] [place], [address] Urea nitrogen [Mass/Vol] 13 mg/dL Normal 7-18 [facility] Comment on above: Performed By: #### L 100.0100 #### [facility] [address] [place], [address] CBC W/Diff, Automatedon 09-2 SMEAR COMMENT COMMENT Normal [facility] Comment on above: Result Comment: BIB PELAYO. Performed By: #### L 100.0100 #### [facility] [address] [place], [address] Emergency Department Summary on 05-30-2024 Emergency Department Summary [facility] Medical Records Department [address] [place] [address] Emergency Department Summary 05/30/24 MR#: [id number] Acct: [id number] Name: JESSICA BARR Rep #: [id number] : 2005 19 From: Gerhard Maldonado DO [...] the body aches fatigue has resolved. PFSH [facility] Home Medications ???Medication ???Instructions ???Recorded ???Last Taken [...] CT o (more content not included)... Normal [facility] H AND P Exam - Hospitaliston 05-30-2024 H&P Exam - Hospitalist [facility] Medical Records Department [address] [place] [address] H P Exam - Hospitalist 05/30/24 1724 MR#: [id number] Acct: [id number] Name: JESSICA BARR Rep #: [id number] : 2005 19 From: Felecia Roland MD PCP: Care Physician,No Primary Status:ADM IN Location: ICU ICU10-1 HPI - General General Date of Admission: 05/30/24 Date of Service: 05/30/24 Chief Complaint: Right sided neck pain and swelling HPI Narrative JESSICA BARR, is a 19 M with history of tobacco use presented to [facility] ED with right neck pain and [...] 90.2 H, Lymph % (Auto) 3.9 L, Erath % (Auto) 4.5, Eos % (Auto) 0.0, [...] L, Alkali (more content not included)... Normal [facility] Liver Profileon 05-30-2024 Albumin [Mass/Vol] 3.5 g/dL Normal 3.2-5.0 [facility] Comment on above: Performed By: #### L 100.0100 #### [facility] [address] [place], [place], [address] ALK P 94 U/L Normal 45-117 [facility] Comment on above: Performed By: #### L 100.0100 #### [facility] [address] [place], [address] ALT [Catalytic activity/Vol] 15 U/L Low 16-61 [facility] Comment on above: Performed By: #### L 100.0100 #### [facility] [address] [place], [address] AST [Catalytic activity/Vol] 9 U/L Low 15-37 [facility] Comment on above: Performed By: #### L 100.0100 #### [facility] [address] [place], [address] Bilirubin [Mass/Vol] 0.50 mg/dL Normal 0.20-1.00 [facility] Comment on above: Result Comment: For patients on eltrombopag therapy, use of Dimension [place] TBIL is not recommended. Performed By: #### L 100.0100 #### [facility] [address] [place], [address] Bilirubin.direct [Mass/Vol] 0.17 mg/dL Normal 0.00-0.30 [facility] Comment on above: Performed By: #### L 100.0100 #### [facility] [address] [place], [address] Globulin (S) [Mass/Vol] 4.4 g/dL High 2.2-4.2 [facility] Comment on above: Performed By: #### L 100.0100 #### [facility] [address] [place], [address] T PROT 7.9 g/dL Normal 6.4-8.2 [facility] Comment on above: Performed By: #### L 100.0100 #### [facility] [address] [place], [address] Operative Reporton 4 Operative Report [facility] Medical Records Department [address] [place] [address] Operative Report 05/30/24 1531 MR#: [id number] Acct: [id number] Name: JESSICA BARR Rep #: [id number] : 2005 19 From: Yuriy Ding MD [...] MD; No Primary Care Physician Signed Normal [facility] Soft Tissue Neck WITH Contra ston 05-30-2024 Soft Tissue Neck WITH Contrast [facility] Imaging Services [address] [place] [address] Soft Tissue Neck WITH Contrast MR#: [id number] Acct: [id number] Name: JESSICA BARR Rep #: [id number] : 2005 M 19 From: Servando addison MD PCP: Care Physician,No Primary Status: REG ER Study: Soft Tissue Neck WITH Contrast Date of Exam: 0 05/30/24 Exam# [id number] Ordering Dr: Gerhard Maldonado DO [id number] STUDY: CT SOFT TISSUE NECK WITH CONTRAST [...] FINDINGS: Normal bilateral parotid glands. Normal bilateral lab assistant spaces. Normal bilateral parapharyngeal spaces. Normal bilateral [...] Gerhard Maldonado DO; No Primary Care Physician Solvent Station Attendant: Signed Normal [facility] Emergency Department Summary on 05-27-2024 Emergency Department Summary [facility] Medical Records Department [address] [place] [address] Emergency Department Summary 05/27/24 MR#: [id number] Acct: [id number] Name: JESSICA BARR Rep #: [id number] : 2005 19 From: Jacques Paul MD [...] or diarrhea. Prior similar symptoms: Yes Recent Illness/Hospitalization: No ROS ROS ED ROS Narrative Body [...] guarding Back/Spine (more content not included)... Normal [facility] CBC W/Diff, Automatedon 05-08 PATH REV Reviewed Normal [facility] Comment on above: Result Comment: Neut rophilic leukocytosis. Clinical correlation necessary. Casimiro Wynn M.D. 05/26/24 AMENDED REPORT 05/26/24 1506 PATH REV previously reported as: January Performed By: #### L 100.0100 #### [facility] [address] [place], [address] Emergency Department Summary on 05-25-2024 Emergency Department Summary [facility] Medical Records Department [address] [place] [address] Emergency Department Summary 05/25/24 MR#: [id number] Acct: [id number] Name: JESSICA BARR Rep #: [id number] : 2005 19 From: Lupillo Alvarado MD [...] or arthralgias. Prior similar symptoms: Yes Recent Illness/Hospitalization: Yes PFSH PFSH Allergy/AdvReac Type Severity Reaction [...] either. M (more content not included)... Normal [facility] Monoteston 05-25-2024 Monocytes (Bld) [#/Vol] Positive Abnormal Negative [facility] Comment on above: Performed By: #### L 100.0100 #### [facility] [address] [place], [place], [address] Neck for Soft Tissueon 05-25 Neck for Soft Tissue [facility] Imaging Services [address] [place], [place] [address] Neck for Soft Tissue MR#: [id number] Acct: [id number] Name: JESSICA BARR Rep #: [id number] : 2005 M 19 From: Servando addison MD PCP: Care Physician,No Primary Status: REG ER Study: Neck for Soft Tissue Date of Exam: 05/25/24 Exam# [id number] Ordering Dr: Lupillo Alvarado MD [id number] STUDY: X-RAY - SOFT TISSUE NECK REASON [...] Lupillo Alvarado MD; No Primary Care Physician Solvent Station Attendant: Signed Normal [facility] CNOVon 05-13-2024 CN Office Visit (UCWSTR ) -- JESSICA BARR ([id number]) 1 M Date Time Provider Department 05/13/24 12:15 PM IVONNE COOPER [facility] During your visit today, we recorded the following information about you: Temperature Pulse Respiration Blood pressure 99 degrees 111/minute 20/minute 115/76 Weight 79 kg Ivonne Cooper APRN.RETAIL EVENT AND SALES ASSISTANT 05/13/2024 12:37 PM Signed Subjective Fever Associated [...] Maternal Grandmother Coronary Artery Disease Maternal Grandfather MS Coronary Artery Disease Paternal Grandfather MS Breast Cancer Other Social History Tobacco Use [...] care wit (more content not included)... Normal [facility] COVID AND INFLUENZA A/B AND RSV PCR, ROUTINEon 05-13-2024 SARS-CoV-2 (COVID-19) RNA TRAY+probe Ql (Unsp spec) SARS-COV-2 (AGENT OF COVID-19) RNA: Not detected INFLUENZA A RNA: Not detected INFLUENZA B RNA: Not detected RESPIRATORY SYNCYTIAL VIRUS (RSV) RNA: Not detected Normal [facility] Comment on above: Performed By: #### C VFLRS ####[facility] LABCLIA [id number] [facility] [id number] [id number] [place] STREP A MOLECULAR (POC)on Procedural Control Valid [facility] Strep A (POCT) Negative Negative [facility] CNOVon 04-26-2024 CNOV Office Visit ([facility]WSTR ) -- JESSICA BARR ([id number]) 1 M Date Time Provider Department 04/26/24 2:15 PM LUL BROWN [facility] During your visit today, we recorded the following information about you: Temperature Pulse Respiration Blood pressure 98.5 degrees 85/minute 20/minute 129/89 Weight 78 kg Lul Brown APRN.RETAIL EVENT AND SALES ASSISTANT 04/26/2024 2:14 PM Signed Subjective HPI Nontoxic-appearing [...] Maternal Grandmother Coronary Artery Disease Maternal Grandfather MS Coronary Artery Disease Paternal Grandfather MS Breast Cancer Other Social History Tobacco Use [...] for discharge (more content not included)... Normal [facility] CNOVon 03-18-2024 CNOV Office Visit (WSTR ) -- JESSICA BARR ([id number]) 1 M Date Time Provider Department 03/18/24 1:15 PM LAVERNE ZAMBRANO [facility] During your visit today, we recorded the following information about you: Temperature Pulse Respiration Blood pressure 97.1 degrees 78/minute 16/minute 128/68 Weight 79 kg Laverne Zambrano APRN.RETAIL EVENT AND SALES ASSISTANT 03/18/2024 2:15 PM Signed Subjective HPI HPI Jessica Arevalo Mikealisonanibal is a 18 year old male who [...] Maternal Grandmother Coronary Artery Disease Maternal Grandfather MS Coronary Artery Disease Paternal Grandfather MS Breast Cancer Other Social History Tobacco Use [...] HENT: Head: Normocephalic and atraumatic. Mouth/Throat: Lips: [place]. Mouth: Mucous membranes are moist. Pharynx: Uvula [...] - STREP A MOLECULAR (POC) Laverne Zambrano APRN.RETAIL EVENT AND SALES ASSISTANT Allergies As of Date: 03/18/2024 (No Known Allergies) Date Reviewed: 03/18/2024 Reviewed by: Kimberly Jackson - Fully Assessed Reason for Visit: Sore Throat [200] Cmt: Cough x2 mths Primary Visit Diagnosis:Subacute cough [R05.2] Other Visit Diagnosis:Sore throat [J02.9] Order(s):STREP A MOLECULAR (POC) [0342208] Order #: [id number]. #:[id number] 3-LAB XR CHEST 2V FRONTAL/LAT [1633434] Order #: [id number]. #:[id number] predniSONE (DELTASONE) 20 mg tabletTake 2 tablets [...] Status:Closed by LAVERNE ZAMBRANO on 03/18/24 Normal [facility] STREP A MOLECULAR (POC)on Procedural Control Valid [facility] Strep A (POCT) Negative Negative [facility] XR CHEST 2V FRONTAL/LATon XR CHEST [...] tissues: Unremarkable. IMPRESSION: No acute radiographic abnormality. Solvent Station Attendant: [facility] Transcribe Date/Time: Mar 18 2024 1:26P Dictated by : ISELA GARCÍA MD This examination was interpreted and the report reviewed and electronically signed by: ISELA GARCÍA MD on Mar 18 2024 1:26PM EST [id number] Normal [facility] XR Chest PA and Lateralon IMPRESSION: No acute radiographic abnormality. Solvent Station Attendant: PSCB Transcribe Date/Time: Mar 18 2024 1:26P [...] soft tissues: Unremarkable. DIVISION OF RADIOLOGY [facility] * * *Final Report* [...] Unremarkable. IMPRESSION IMPRESSION: No acute radiographic abnormality. Solvent Station Attendant: ISAAC Transcribe Date/Time: Mar 18 2024 1:26P Dictated by : ISELA GARCÍA MD This examination was interpreted and the report reviewed and electronically signed by: ISELA GARCÍA MD on Mar 18 2024 1:26PM EST [facility] Radiology Study observation (narrative) [facility] XR Chest PA and LateralOrder ed By: [facility] Provider on 03-18-2024 [facility] CNOVon 03-03-2024 CNOV Office Visit (INTMWS ) -- JESSICA BARR ([id number]) 1 M Date Time Provider Department 03/03/24 2:20 PM PRAKASH ZHAO INTMWS During your visit today, we recorded the following information about you: Temperature Pulse Respiration Blood pressure 98.6 degrees 84/minute 18/minute 122/74 Weight 78.5 kg Prakash Zhao MD 03/03/2024 3:38 PM Signed This note was created using NoteWriter. Subjective Jessica Arevalo Mikejatin is a 18 year old male. He [...] Prakash Zhao MD Referring Provider: PRAKASH ZHAO [[id number]] Allergies As of Date: 03/03/2024 (No Known Allergies) Date Reviewed: 03/03/2024 Reviewed by: Myrna Vick LPN - Fully Assessed Reason for Visit: Discussion [813] Primary Visit Diagnosis:Tobacco use disorder [F17.200] Other Visit Diagnosis:History of heavy alcohol consumption [Z87.898] Order(s):buPROPion XL (WELLBUTRIN XL) 150 mg 24 hr tabletTake 1 tablet by mouth once daily.Disp: 30 tabletRfl: 0 BEHAVIORAL HEALTH SCREENING [2829876] Order #: [id number]: 1 Prescriptions as of 03/03/2024 - buPROPion [...] for Encounter Date Provider Department Center 03/03/2024 [id number] ZHAO INTMWS [facility] [place] Encounter Status:Closed by PRAKASH ZHAO on 03/03/24 [facility] 02-29-2024 CNOV Office Visit (UCWSTR ) -- JESSICA BARR ([id number]) 1 M Date Time Provider Department 02/29/24 [...] Maternal Grandmother Coronary Artery Disease Maternal Grandfather MS Coronary Artery Disease Paternal Grandfather MS Breast Cancer Other Social History Tobacco Use [...] Diagnosis:Viral illness [B34.9] Order(s):STREP A MOLECULAR (POC) [[id number]] Order #: [id number] #:[id number] 1-LAB Prescriptions as of 02/29/2024 - miconazole (LOTRIMIN [...] If not better jean paul chow e carla again Encounter Status:Closed by MIRIAM WATSON on 02/29/24 Normal [facility] STREP A MOLECULAR (POC)on Procedural Control Valid [facility] Strep A (POCT) Negative Negative [facility] CNOVon 01-29-2024 CNOV Office Visit (UCWSTR ) -- JESSICA BARR ([id number]) 1 M Date Time Provider Department 01/29/24 8:30 AM IVONNE COOPER [facility] During your visit today, we recorded the [...] when possible. To treat ahtlete?s foot, use [id number]-fulediq medicated foot powder or cream such as [...] after one week of treatment. Ivonne Cooper APRN.[facility] 01/29/2024 8:56 AM Signed Subjective Pain (foot) [...] Maternal Grandmother Coronary Artery Disease Maternal Grandfather MS Coronary Artery Disease Paternal Grandfather MS Breast Cancer Other Social History Tobacco Use [...] Discussed expected course of illness Ivonne Cooper APRN.[employer] Allergies As of D (more content not included)... Normal [facility] .Auto Diffon 03-11-2023 Basophil, Absolute 0.0 10 3/mcL Normal 0.0-0.2 [facility] ([place]) Comment on above: Performed By: #### C MP, CBC, GFR, LAMIN MILLAN LIP, MDW #### [address] [address] Basophils/100 WBC (Bld) 0.7 % Normal 0.0-2.5 [facility] ([place]) Comment on above: Performed By: #### C MP, CBC, GFR, LAMIN MILLAN LIP, MDW #### [address] [place], [place] [address] Eosinophil, Absolute 0.2 10 3/mcL Normal 0.0-0.4 [facility] ([place]) Comment on above: Performed By: #### C MP, CBC, GFR, ANEULAMIN LIP W #### [address] [address] Eosinophils/100 WBC (Bld) 3.9 % Normal 0.0-7.0 [facility] ([place]) Comment on above: Performed By: #### C MP, CBC, GFR, ANEU, ADIFF, LIP, MDW #### [address] [address] Lymphocyte, Absolute 1.1 10 3/mcL Normal 0.8-3.9 [facility] ([place]) Comment on above: Performed By: #### C MP, CBC, GFR, ANEU, ADIFF, LIP, MDW #### [address] [address] Lymphocytes/100 WBC (Bld) 18.7 % Normal 10.0-50.0 [facility] ([place]) Comment on above: Performed By: #### C MP, CBC, GFR, ANEU, ADIFF, LIP, MDW #### [address] [address] Monocyte, Absolute 0.8 10 3/mcL Normal 0.2-1.0 [facility] ([place]) Comment on above: Performed By: #### C MP, CBC, GFR, ANEU, ADIFF, KRISTY, W #### [address] [address] Monocytes/100 WBC (Bld) 14.2 % High 1.7-13.0 [facility] ([place]) Comment on above: Performed By: #### C MP, CBC, GFR, ANEU, ADIFF, LIP, LEANNE #### [address] [address] Neutrophils/100 WBC (Bld) 62.5 % Normal 37.0-80.0 [facility] ([place]) Comment on above: Performed By: #### C MP, CBC, GFR, ANEU, ADIFF, LIP, MDW #### [address] [address] .GFRon 03-11-2023 GFR 145 ml/min/1.73sqm Normal [facility] ([place]) Comment on above: Result Comment: GFR Population [...] CBC, GFR, ANEU, ADIFF, LEANNE WAGNER #### [address] [address] GFR Non- 119 ml/min/1.73sqm Normal [facility] ([place]) Comment on above: Result Comment: GFR Population [...] CBC, GFR, ANEU, ADKRISTY MERRILL MDW #### [address] [address] .MDWon 03-11-2023 Monocyte Distribution Width 18.08 Normal 0.00-20.00 [facility] ([place]) Comment on above: Result Comment: For ED adult patients suspected of sepsis, MDW<=20.0 does not rule out sepsis or risk of sepsis Performed By: #### C MP, CBC, GFR, ANEU, ADIFF, KRISTY, LEANNE #### [address] [address] .NEUABSon 03-11-2023 Neutrophil, Absolute 3.5 10 3/mcL Normal 2.9-6.2 [facility] ([place]) Comment on above: Performed By: #### C MP, CBC, GFR, ANEU, ADIFF, KRISTY, W #### [place] [address] CBCon 03-11-2023 Erythrocyte distribution width (RBC) [Ratio] 13.0 % Normal 11.5-14.5 [facility] ([place]) Comment on above: Performed By: #### C MP, CBC, GFR, ANEU, ADIFF, LEANNE WAGNER #### [place] [address] Hematocrit (Bld) [Volume fraction] 42.1 % Normal 42.0-52.0 [facility] ([place]) Comment on above: Performed By: #### C MP, CBC, GFR, ANEU, ADIFF, LEANNE WAGNER #### [place] [address] Hgb 14.4 G/dL Normal 14.0-18.0 [facility] ([place]) Comment on above: Performed By: #### C MP, CBC, GFR, ANEU, ADIFF, KRISTY, LEANNE #### [place] [address] MCH (RBC) [Entitic mass] 29.3 pg Normal 27.0-31.2 [facility] ([place]) Comment on above: Performed By: #### C MP, CBC, GFR, ANEU, ADIFF, LEANNE WAGNER #### [place] [address] MCHC 34.2 G/dL Normal 31.8-35.4 [facility] ([place]) Comment on above: Performed By: #### C MP, CBC, GFR, ANEU, ADIFF, KRISTY, LEANNE #### [place] [address] MCV (RBC) [Entitic vol] 85.7 fL Normal 80.0-94.0 [facility] ([place]) Comment on above: Performed By: #### C MP, CBC, GFR, ANEU, KRISTY KIMBLE MDW #### [address] [address] Platelet 322 10 3/mcL Normal 130-400 [facility] ([place]) Comment on above: Performed By: #### C MP, CBC, GFR, ANEU, ADGARFIELD, LEANNE WAGNER #### [address] [address] Platelet mean volume (Bld) [Entitic vol] 7.3 fL Low 7.4-10.4 [facility] ([place]) Comment on above: Performed By: #### C MP, CBC, GFR, ANEU, ADKRISTY MERRILL MDW #### [address] [address] RBC 4.92 10 6/mcL Normal 4.04-6.13 [facility] ([place]) Comment on above: Performed By: #### C MP, CBC, GFR, ANEU, KRISTY KIMBLE MDW #### [address] [address] WBC 5.6 10 3/mcL Normal 4.6-10.8 [facility] ([place]) Comment on above: Performed By: #### C MP, CBC, GFR, ANEU, KRISTY KIMBLE MDW #### [address] [address] CMPon 03-11-2023 Albumin Level 4.2 G/dL Normal 3.5-5.0 [facility] ([place]) Comment on above: Performed By: #### C MP, CBC, GFR, ANEULAMIN LIP, MDW #### [address] [address] Albumin/Globulin [Mass ratio] 1.6 {ratio} Normal 1.1-2.5 [facility] ([place]) Comment on above: Performed By: #### C MP, CBC, GFR, ANEU, KRISTY KIMBLE MDW #### [address] [address] ALP [Catalytic activity/Vol] 91 U/L Normal 40-135 [facility] ([place]) Comment on above: Performed By: #### C MP, CBC, GFR, ANEU, ADIFF, LIP, W #### [address] [address] ALT [Catalytic activity/Vol] 23 U/L Normal 16-63 [facility] ([place]) Comment on above: Performed By: #### C MP, CBC, GFR, ANEU, ADIFF, KRISTY, W #### [address] [address] AST [Catalytic activity/Vol] 17 U/L Normal 10-40 [facility] ([place]) Comment on above: Performed By: #### C MP, CBC, GFR, ANEU, ADIFF, KRISTY, LEANNE #### [address] [address] Bili Total 0.6 mg/dL Normal 0.2-1.0 [facility] ([place]) Comment on above: Result Comment: Use of this assay is not recommended for patients undergoing treatment with eltrombopag due to the potential for falsely elevated results. Performed By: #### C MP, CBC, GFR, ANEU, ADIFF, KRISTY, LEANNE #### [address] [address] BUN/Creatinine Ratio 13 ratio Normal 7-27 [facility] ([place]) Comment on above: Performed By: #### C MP, CBC, GFR, ANEU, ADIFF, KRISTY, LEANNE #### [address] [address] Calcium [Mass/Vol] 9.3 mg/dL Normal 8.4-10.2 [facility] ([place]) Comment on above: Performed By: #### C MP, CBC, GFR, ANEU, ADIFF, LIP, W #### [address] [address] Chloride [Moles/Vol] 104 mmol/L Normal 98-107 [facility] ([place]) Comment on above: Performed By: #### C MP, CBC, GFR, ANEU, ADIFF, KRISTY, LEANNE #### [address] [address] CO2 [Moles/Vol] 26 mmol/L Normal 22-29 [facility] ([place]) Comment on above: Performed By: #### C MP, CBC, GFR, ANEU, ADIFF, LIP, W #### [address] [address] Creatinine [Mass/Vol] 0.83 mg/dL Normal 0.70-1.30 [facility] ([place]) Comment on above: Performed By: #### C MP, CBC, GFR, ANEU, ADIFF, KRISTY, LEANNE #### [address] [address] Electrolyte Balance 10.0 mEq/L Normal 4.0-15.0 [facility] ([place]) Comment on above: Performed By: #### C MP, CBC, GFR, ANEU, ADIFF, KRISTY, LEANNE #### [address] [address] Globulin 2.6 G/dL Normal [facility] ([place]) Comment on above: Performed By: #### C MP, CBC, GFR, ANEU, ADIFF, KRISTY, LEANNE #### [address] [address] Glucose [Mass/Vol] 84 mg/dL Normal 70-105 [facility] ([place]) Comment on above: Performed By: #### C MP, CBC, GFR, ANEU, ADIFF, KRISTY, LEANNE #### [address] [address] Potassium [Moles/Vol] 4.1 mmol/L Normal 3.5-5.1 [facility] ([place]) Comment on above: Performed By: #### C MP, CBC, GFR, ANEU, ADIFF, LIP, MDW #### [address] [address] Sodium [Moles/Vol] 140 mmol/L Normal 136-145 [facility] ([place]) Comment on above: Performed By: #### C MP, CBC, GFR, ANEU, KRISTY KIMBLE MDW #### [address] [address] Total Protein 6.8 G/dL Normal 6.4-8.2 [facility] ([place]) Comment on above: Performed By: #### C MP, CBC, GFR, ANEU, KRISTY KIMBLE MDW #### [address] [place], [place] [address] Urea nitrogen [Mass/Vol] 11 mg/dL Normal 7-18 [facility] ([place]) Comment on above: Performed By: #### C MP, CBC, GFR, ANEULAMIN LIP, MDW #### [address] [address] LABORATORYOrdered By: SYSTEM SYSTEM on 03-11-2023 Albumin [...] 03-11-2023 Lipase Level 25 U/L Normal 16-77 [facility] ([place]) Comment on above: Performed By: #### C MP, CBC, GFR, ANEU, ADIFF, LIP, MDW #### [address] [address] [id number] 12-22-2022 SARS-CoV-2 (COVID-19) RNA TRAY+probe Ql (Unsp spec) Negative Normal Negative [facility] ([place]) Comment on above: Performed By: #### C OVD19, FLURSV #### [address] [place], [place] [address] SARS-CoV-2 (COVID-19) RNA TRAY+probe Ql (Unsp spec) Normal [facility] ([place]) Comment on above: Result Comment: Nega tive [...] Performed By: #### C OVD19, FLURSV #### [address] [address] DIMERon 12-22-2022 D-Dimer <200 Normal 0-230 [facility] ([place]) Comment on above: Result Comment: The result [...] (PE). Performed By: #### D BROOKS ####[id number] [place], [place] [address] FLURSVon 12-22-2022 Flu A PCR (AO) Negative Normal Negative [facility] ([place]) Comment on above: Result Comment: Posi tive [...] REPEAT COLLECTION AND TESTING IS RECOMMENDED. [employer] Flu A/B & RSV Assay is a real-time polymerase chain reaction (PCR) based qualitative in vitro diagnostic test for the direct detection and differentiation of influenza A virus, influenza B virus, and respiratory syncytial virus (RSV) nucleic acid in nasopharyngeal swab (FRONT DESK HOST) specimens from patients with signs and symptoms of respiratory infection in conjunction with clinical and laboratory findings. The test is intended for use as an aid in the differential diagnosis of influenza A virus, influenza B virus, and RSV in humans and is not intended to detect influenza C. Performed By: #### C OVD19, FLURSV ####[address] [place], [place] [address] Flu B PCR (AO) Negative Normal Negative [facility] ([place]) Comment on above: Result Comment: Posi tive [...] virus (RSV) nucleic acid in nasopharyngeal swab (FRONT DESK HOST) specimens from patients with signs and symptoms of respiratory infection in conjunction with clinical and laboratory findings. The test is intended for use as an aid in the differential diagnosis of influenza A virus, influenza B virus, and RSV in humans and is not intended to detect influenza C. Performed By: #### C OVD19, FLURSV ####[facility] [place], [place] [address] RSV PCR (AO) Negative Normal Negative [facility] ([place]) Comment on above: Result Comment: Posi tive [...] virus (RSV) nucleic acid in nasopharyngeal swab (FRONT DESK HOST) specimens from patients with signs and symptoms of respiratory infection in conjunction with clinical and laboratory findings. The test is intended for use as an aid in the differential diagnosis of influenza A virus, influenza B virus, and RSV in humans and is not intended to detect influenza C. Performed By: #### C OVD19, FLURSV ####[id number] [place], [place] [address] LABORATORYOrdered By: Catherine Bernal on 12-22-2022 Fibrin [...] Date: 12/22/2022 2:43:59 PM Ordering Provider: [facility] ([place]) CR Forearm 2 Views Righton 1 CR Forearm 2 Views Right Patient Name: JESSICA BARR Diagnostic Radiology ACCESSION EXAM DATE/TIME PROCEDURE ORDERING PROVIDER [id number] 07/01/2022 23:56 EDT CR Forearm 2 Views Right [id number] BASILIO MALLORY CPT code 78292 Reason For Exam (CR Forearm 2 Views [...] JASON Transcribed Date and Time: 07/02/2022 0:47 [facility] XR RADIUS ULNA RIGHT (2 VIEW S)on 07-02-2022 Patient Name: JESSICA PALACIOS Diagnostic Radiology ACCESSION EXAM DATE/TIME PROCEDURE ORDERING PROVIDER [id number] 07/01/2022 23:56 EDT CR Forearm 2 Views Right [id number] BASILIO MALLORY CPT code 48473 Reason For Exam (CR Forearm 2 Views [...] JASON Transcribed Date and Time: 07/02/2022 0:47 [facility] RAD Israel Crews MD - 07/02/2022 Patient Name: JESSICA BARR Diagnostic Radiology ACCESSION EXAM DATE/TIME PROCEDURE ORDERING PROVIDER [id number] 07/01/2022 23:56 EDT CR Forearm 2 Views Right [id number] -BASILIO ERVIN CPT code 53797 Reason For Exam (CR Forearm 2 Views [...] JASON Transcribed Date and Time: 07/02/2022 0:47 [facility] Work Phone: XR RADIUS ULNA RIGHT (2 VIEW S)Ordered By: Israel Crews on 07-02-2022 [facility] Work Phone: ED Provider Noteon ED Provider Note [facility] EMERGENCY DEPT eMERGENCY dEPARTMENT eNCOUnter Pt Name: Jessica Barr Birthdate 2005 Date of evaluation: 07/01/2022 Provider: Omar Walls PA-C CHIEF COMPLAINT Chief Complaint Patient presents with Arm Injury PT FELL INTO [place] TODAY AND GOT CAST WET. PT HAD BROKEN R ARM W/ WOUND 2X WEEKS AGO. Patient seen independently with an Emergency Medicine attending available for supervision. HISTORY OF PRESENT ILLNESS (Location/Symptom, Timing/Onset,Context/Setti ng, Quality, Duration, Modifying Factors, Severity) Note limiting factors. PHILLIP Barr is a 17 y.o. male who presents to the emergency department after falling in a [place] earlier today. Patient states that he did [...] Negative for dizziness, light-headedness, numbness and headaches. Psychiatric/Behavioral: The patient is not nervous/anxious. All other [...] use: Yes Drug use: Yes Types: Marijuana ([place]) SCREENINGS PHYSICAL EXAM (up to 7 for [...] EXAM DATE/GAEL (more content not included)... Normal [facility] XR RADIUS ULNA RIGHT (2 VIEW S)on 07-01-2022 Radiology Study observation (narrative) [facility] Work Phone: CBC with Auto Differentialon 06-21-2022 Hematocrit (Bld) [Volume fraction] 39.0 % Low 40 - 52 % [facility] Hemoglobin (Bld) [Mass/Vol] 13.4 g/dL 13 - 18 g/dL [facility] Interpretation [...] vol] 7.6 fL 7.4 - 12.4 fL [facility] Comment on above: MPV is a calculated measurement using platelet volume ratio. Platelets (Bld) [#/Vol] 259 10*3/uL 140 - 440 10*3/uL [facility] RBC (Bld) [#/Vol] 4.57 10*6/uL 4.4 - 5.9 10*6/uL [facility] WBC (Bld) [#/Vol] 11.6 10*3/uL High 3.6 - 10.7 10*3/uL [facility] Test Performed by [facility], [address] [place] [id number] [place] [address] LAB [facility] COVID-19, Flu A/B, and RSV C ombo 06-21-2022 Influenza A by PCR Not detected [facility] A Influenza B by PCR Not detected [facility] A RSV PCR Not Detected. Expected Result: Not Detected _ Method: Real-time, RT-PCR This assay was developed by [employer] and distributed under an Emergency Use Authorization (EUA) granted by the FDA for the qualitative detection of nucleic acids from SARS-CoV-2, Influenza A, Influenza B, and Respiratory Syncytial Virus. Provider and patient fact sheets can be found at https://www.fda.gov/media/ 693827/download and https://www.fda.gov/media/ 283133/download. [facility] SARS-CoV-2 (COVID-19) RNA TRAY+probe Ql (Unsp spec) Not detected [facility] Test Performed by [address] [address] [facility] LAB [facility] CR Chest Portableon 06-21-20 CR Chest Portable Patient Name: JESSICA PALACIOS Diagnostic Radiology ACCESSION EXAM DATE/TIME PROCEDURE ORDERING PROVIDER [id number] 06/21/2022 18:58 EDT CR Chest Portable KAM ALFONSO CPT code 03267 Reason For Exam (CR Chest Portable) weakness, cough Report EXAM TYPE: RADIOLOGIC EXAMINATION, CHEST, SINGLE VIEW FRONTAL (CXR SINGLE VIEW) EXAM DATE AND TIME: 06/21/2022 6:26 PM EDT INDICATION: Weakness, cough COMPARISON: None available. TECHNIQUE: A single frontal view of the thorax was obtained and reviewed. Special views: None. FINDINGS/IMPRESSION: 1. Lines/Tubes/Devices/Hardwa re: None. 2. Lungs: No consolidation or pulmonary edema. 3. Pleura: No pneumothorax or large pleural effusions. 4. Heart and mediastinum: Normal cardiomediastinal contours. Report Dictated on Final Dictated: 06/21/2022 6:35 pm Dictating Physician: MD PEÑA NEIL Signed Date and Time: 06/21/2022 6:36 pm Signed by: MD PEÑA NEIL Transcribed Date and Time: 06/21/2022 6:35 Normal [facility] Comp Metabolic Panelon 06-21 ALP [Catalytic activity/Vol] 71 U/L Normal 38-126 [facility] Comment on above: Performed By: #### H KRISTA ARDIAN MDIFF #### [address] [place], [place] ALT [Catalytic activity/Vol] 34 U/L Normal 0-49 [facility] Comment on above: Result Comment: The ALT test is performed by an updated assay method. Please note that the reference intervals have been changed and are now sex specific. Performed By: #### H KRISTA ADRIAN MDIFF #### [facility] [address] [place], [place] AST [Catalytic activity/Vol] 41 U/L Normal 15-46 [facility] Comment on above: Performed By: #### H KRISTA ADRIAN MDIFF #### [facility] [address] [place], [place] Calcium [Mass/Vol] 9.5 mg/dL Normal 8.4-10.4 [facility] Comment on above: Performed By: #### H KRISTA ADRIAN MDIFF #### [facility] [address] [place], [place] Glucose [Mass/Vol] 102 mg/dL High 70-100 [facility] Comment on above: Performed By: #### H KRISTA ADRIAN MDIFF #### [facility] [address] [place], [place] Protein [Mass/Vol] 7.4 g/dL Normal 6.3-8.2 [facility] Comment on above: Performed By: #### H KRISTA ADRIAN MDIFF #### [facility] [address] [place], [place] Urea nitrogen [Mass/Vol] 10 mg/dL Normal 7-17 [facility] Comment on above: Performed By: #### H KRISTA ADRIAN MDIFF #### [facility] [address] [place], [place] Anion gap [Moles/Vol] 8 mmol/L Normal 3-13 [facility] Comment on above: Performed By: #### H KRISTA ADRIAN MDIFF #### [facility] [address] [place], [place] Bilirubin [Mass/Vol] 0.6 mg/dL Normal 0.2-1.3 [facility] Comment on above: Performed By: #### H KRISTA ADRIAN MDIFF #### [facility] [address] [place], [place] CO2 [Moles/Vol] 25 mmol/L Normal 22-30 [facility] Comment on above: Performed By: #### H KRISTA ADRIAN MDIFF #### [facility] [address], [place] Creatinine [Mass/Vol] 0.62 mg/dL Normal 0.52-1.25 [facility] Comment on above: Performed By: #### H KRISTA ADRIAN MDIFF #### [facility] [address] [place], [place] eGFR OTHER > 90.0 Normal >60 [facility] Comment on above: Result Comment: KDIG [...] By: #### H KRISTA ADRIAN MDIFF #### [facility] [address] [place], [place] GFR/1.73 sq M.predicted among blacks MDRD (S/P/Bld) [Vol rate/Area] mL/min/{1.73_m2} Normal >60 [facility] Comment on above: Performed By: #### H KRISTA ADRIAN MDIFF #### [facility] [address], [place] Albumin [Mass/Vol] 4.2 g/dL Normal 3.5-5.0 [facility] Comment on above: Performed By: #### H KRISTA ADRIAN MDIFF #### [facility] [address] [place], [place] Chloride [Moles/Vol] 104 mmol/L Normal 98-107 [facility] Comment on above: Performed By: #### H KRISTA ADRIAN MDIFF #### [address] Potassium [Moles/Vol] 4.2 mmol/L Normal 3.5-5.1 [facility] Comment on above: Performed By: #### H KRISTA ADRIAN MDIFF #### [address] Sodium [Moles/Vol] 136 mmol/L Normal 135-145 [facility] Comment on above: Performed By: #### H KRISTA ADRIAN MDIFF #### [address] Comprehensive Metabolic Pane jayla 06-21-2022 Albumin [Mass/Vol] 4.2 g/dL 3.5 - 5 g/dL [facility] ALP (Bld) [Catalytic activity/Vol] 71 U/L 38 - 126 U/L [facility] ALT [Catalytic activity/Vol] 34 U/L 0 - 49 U/L [facility] Comment on above: The ALT test [...] P INF mL/min [facility] EGFR IF NonAfrican Barbadian mL/min 60 - PINF mL/min [facility] Comment [...] 102 mg/dL High 70 - 100 mg/dL [facility] Interpretation and review of laboratory results Abnormal [facility] Potassium [Moles/Vol] 4.2 mmol/L 3.5 - 5.1 mmol/L [facility] Protein [Mass/Vol] 7.4 g/dL 6.3 - 8.2 g/dL [facility] Sodium [Moles/Vol] 136 mmol/L 135 - 145 mmol/L [facility] Urea nitrogen (BldV) [Mass/Vol] 10 mg/dL 7 - 17 mg/dL [facility] Test Performed by [facility], [address] [place] [id number] [place] [address] LAB [facility] ED Provider Noteon ED Provider Note Emergency Department Encounter [facility] EMERGENCY DEPT Patient: Jessica Barr : 2005 [...] for ACS or PE. IMarian, am the time analysis clerk of record. I did perform a substantive [...] are mis-transcribed.) Irina Guerra MD Acute Care [facility] Irina Guerra MD 06/21/22 [id number] [facility] ED Provider Note Emergency Department Encounter [facility] EMERGENCY DEPT Patient: Jessica Barr : 2005 [...] as my SAMMY Supervisory note as the time analysis clerk of record and shared attestation. I did [...] for clarification KAM ALFONSO MD Acute Care [facility] Kam Alfonso MD 06/21/22 7672 [facility] ED Provider Note [facility] EMERGENCY DEPT EMERGENCY DEPARTMENT ENCOUNTER Pt Name: [...] patient come from an ECF, SNF, Rehab, Retirement or other Congregate setting: No (If yes [...] use: Yes Drug use: Yes Types: Marijuana ([place]) SCREENINGS Katie Coma Scale Eye Opening: Spontaneous Best Verbal Response: Oriented Best Motor Response: Obeys commands Katie Coma Scale Score: 15 PHYSICAL EXAM (up to 7 for level 4, 8 or more for level 5) ED Triage Vitals BP Temp Temp Source Heart Rate Resp SpO2 Height Weight - Scale 06/21/22174506/21/22 17406/21/22 17406/21/22 17406/21/22 17406/21/22 17406/21/22 17406/21/221748 (!) 155/91 97.1 ?F (36.2 ?C) Temporal [...] Refill: Ca (more content not included)... Normal [facility] Hemogram w/ Autodiffon 06-21 Erythrocyte distribution width (RBC) [Ratio] 13.9 % Normal 11.5-14.5 [facility] Comment on above: Performed By: #### H KRISTA ADRIAN MDIFF #### [facility] [address] [place] [address] Hematocrit (Bld) [Volume fraction] 39.0 % Low 40.0-52.0 [facility] Comment on above: Performed By: #### H KRISTA ADRIAN MDIFF #### [facility] [address] [place] [address] Hemoglobin (Bld) [Mass/Vol] 13.4 g/dL Normal 13.0-18.0 [facility] Comment on above: Performed By: #### H KRISTA ADRIAN, MDIFF #### [facility] [address], [place] MCH (RBC) [Entitic mass] 29.2 pg Normal 26.0-34.0 [facility] Comment on above: Performed By: #### KRISTA SERRANO MDIFF #### [place] [address] [address] [place], [place] MCHC 34.2 % Normal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 [place] [address] - [facility] TS GELon 06-17-2022 TS GEL ABO Group: B Rh, Gel: POS Antibody Screen Gel: NEG Normal [facility] Comment on above: Performed By: #### H EMDF, PT, ETOH4, BMP3 #### [address] [address] TYPE AND SCREENon 06-17-2022 ABO Grouping B [facility] Rh Type Positive [facility] Test Performed by [facility], [address] [place] [id number] [place] [address] - [facility] XR CHEST 1 VIEWon 06-17-2022 XR CHEST [...] 06/17/2022 1:31:13 AM Ordering Provider: JUANA Evans [facility] ([place]) XR FOREARM 2 VIEWS RIGHTon 1 XR [...] Date: 06/17/2022 12:21:56 AM Ordering Provider: JUANA Evans [facility] ([place]) XR HAND RIGHT (MIN 3 VIEWS)o n 06-17-2022 Patient Name: JESSICA PALACIOS Diagnostic Radiology ACCESSION EXAM DATE/TIME PROCEDURE ORDERING PROVIDER [id number] 06/17/2022 03:53 EDT CR Hand Complete 3+ [id number] -VILLAFANA, Jhonatan Right [facility]IEU CPT code 31340 Reason For Exam (CR Hand Complete 3+ [...] MD - 06/17/2022 [facility]: [id number]iology ACCESSION EXAM DATE/TIME PROCEDURE ORDERING PROVIDER [id number] 06/17/2022 03:53 EDT CR Hand Complete 3+ [id number] -LEDY, Jhonatan Right [facility] CPT code 25734 Reason For Exam (CR Hand Complete 3+ [...] [facility] Work Phone: Radiology Study observation (narrative) [facility] Work Phone: XR WRIST RIGHT 3 VWon 2021 Patient Name: JESSICA PALACIOS Diagnostic Radiology ACCESSION EXAM DATE/TIME PROCEDURE ORDERING PROVIDER [id number] 06/17/2022 03:53 EDT CR Wrist Complete 3 [id number] -KAM RAMIREZ Views Right CPT code 38262 Reason For Exam (CR Wrist Complete 3 [...] CHRISTOPHER Transcribed Date and Time: 06/17/2022 3:46 [facility] Yuriy Valdez MD - 06/17/2022 Patient Name: JESSICA BARR Diagnostic Radiology ACCESSION EXAM DATE/TIME PROCEDURE ORDERING PROVIDER [id number] 06/17/2022 03:53 EDT CR Wrist Complete 3 [id number] KAM SHELTON Views Right CPT code 35203 Reason For Exam (CR Wrist Complete 3 [...] VWOrdered B y: Yuriy Valdez on 06-17-2022 [facility] Work Phone: STREP A MOLECULAR (POC)on Procedural Control Valid [facility] Strep A (POCT) Negative Negative [facility] Vital Signs Date Time Vital Sign Value Performing Clinician Facility 05-03-2025 09:04-0400 Body height 172.[address] Lupillo Alvarado MD Work Phone: [facility] 05-03-2025 09:04-0400 Body mass index (BMI) [Ratio] 24.3 kg/m2 Dr. Lupillo Alvarado MD Work Phone: [facility] 05-03-2025 09:04-0400 Body temperature 98.9 [degF] Dr. Lupillo Alvarado MD Work Phone: 7(694)071-695303 [place] [address] 05-03-2025 09:04-0400 Body weight 72.[address] Lupillo Alvarado MD Work Phone: 2(964)809-583803 [place] [address] 05-03-2025 09:04-0400 Diastolic blood pressure 68 mm[Hg] Dr. Lupillo Alvarado MD Work Phone: 0(897)251-178303 [place] [address] 05-03-2025 09:04-0400 Heart rate 58 /min Dr. Lupillo Alvarado MD Work Phone: 2(530)978-057403 [place] [address] 05-03-2025 09:04-0400 Respiratory rate 18 /min Dr. Lupillo Alvarado MD Work Phone: 6(282)419-102703 [place] [address] 05-03-2025 09:04-0400 SaO2% (BldA) [Mass fraction] 98 % Dr. Lupillo Alvarado MD Work Phone: 6(783)510-677403 [place] [address] 05-03-2025 09:04-0400 Systolic blood pressure 117 mm[Hg] Dr. Lupilol Alvarado MD Work Phone: 3(058)883-660403 [place] [address] 04-11-2025 14:12-0400 Body height 172.[address] Lupillo Alvarado MD Work Phone: 4(297)612-022703 [place] [address] 04-11-2025 14:12-0400 Body mass index (BMI) [Ratio] 24.4 kg/m2 Dr. Lupillo Alvarado MD Work Phone: 1(842)769-398803 [place] [address] 04-11-2025 14:12-0400 Body temperature 98.1 [degF] Dr. Lupillo Alvarado MD Work Phone: 6(855)333-695303 [place] [address] 04-11-2025 14:12-0400 Body weight 72.[address] Lupillo Alvarado MD Work Phone: 9(428)917-492003 [place] [address] 04-11-2025 14:12-0400 Diastolic blood pressure 63 mm[Hg] Dr. Lupillo Alvarado MD Work Phone: 3(953)686-696003 [place] [address] 04-11-2025 14:12-0400 Heart rate 56 /min Dr. Lupillo Alvarado MD Work Phone: 8(325)412-591403 [place] [address] 04-11-2025 14:12-0400 Respiratory rate 18 /min Dr. Lupillo Alvarado MD Work Phone: 6(463)557-518603 [place] [address] 04-11-2025 14:12-0400 SaO2% (BldA) [Mass fraction] 99 % Dr. Lupillo Alvarado MD Work Phone: 5(835)584-628103 [place] [address] 04-11-2025 14:12-0400 Systolic blood pressure 115 mm[Hg] Dr. Lupillo Alvarado MD Work Phone: 6(212)455-088803 [place] [address] 04-04-2025 14:20-0400 Body height 172.[address] Lupillo Alvarado MD Work Phone: 2(235)984-479703 [place] [address] 04-04-2025 14:20-0400 Body mass index (BMI) [Ratio] 24.3 kg/m2 Dr. Lupillo Alvarado MD Work Phone: 5(455)898-268303 [place] [address] 04-04-2025 14:20-0400 Body temperature 98.5 [degF] Dr. Lupillo Alvarado MD Work Phone: 7(093)673-479303 [place] [address] 04-04-2025 14:20-0400 Body weight 72.[address] Lupillo Alvarado MD Work Phone: 3(032)831-301303 [place] [address] 04-04-2025 14:20-0400 Diastolic blood pressure 75 mm[Hg] Dr. Lupillo Alvarado MD Work Phone: 9(140)415-419103 [place] [address] 04-04-2025 14:20-0400 Heart rate 77 /min Dr. Lupillo Alvarado MD Work Phone: 5(462)832-465803 [place] [address] 04-04-2025 14:20-0400 Respiratory rate 18 /min Dr. Lupillo Alvarado MD Work Phone: 9(411)492-221503 [place] [address] 04-04-2025 14:20-0400 SaO2% (BldA) [Mass fraction] 96 % Dr. Lupillo Alvarado MD Work Phone: 7(485)778-267003 [place] [address] 04-04-2025 14:20-0400 Systolic blood pressure 134 mm[Hg] Dr. Lupillo Alvarado MD Work Phone: 1(623)343-070603 [place] [address] 03-27-2025 14:04-0400 Body height 172.[address] Lupillo Alvarado MD Work Phone: 7(988)710-397703 [place] [address] 03-27-2025 14:04-0400 Body mass index (BMI) [Ratio] 24.5 kg/m2 Dr. Lupillo Alvarado MD Work Phone: 8(875)151-428103 [place] [address] 03-27-2025 14:04-0400 Body weight 73.[address] Lupillo Alvarado MD Work Phone: 6(234)975-833703 [place] [address] 03-27-2025 13:54-0400 Body temperature 98.7 [degF] Dr. Lupillo Alvarado MD Work Phone: 5(301)851-321003 [place] [address] 03-27-2025 13:54-0400 Diastolic blood pressure 72 mm[Hg] Dr. Lupillo Alvarado MD Work Phone: 8(975)090-799403 [place] [address] 03-27-2025 13:54-0400 Heart rate 62 /min Dr. Lupillo Alvarado MD Work Phone: 3(239)919-170103 [place] [address] 03-27-2025 13:54-0400 Respiratory rate 18 /min Dr. Lupillo Alvarado MD Work Phone: 9(814)136-619303 [place] [address] 03-27-2025 13:54-0400 SaO2% (BldA) [Mass fraction] 98 % Dr. Lupillo Alvarado MD Work Phone: 5(265)962-615003 [place] [address] 03-27-2025 13:54-0400 Systolic blood pressure 116 mm[Hg] Dr. Lupillo Alvarado MD Work Phone: 8(660)579-173503 [place] [address] 03-07-2025 09:00-0400 Body temperature 98 [degF] Dr. Lupillo Alvarado MD Work Phone: 9(806)009-639403 [place] [address] 03-07-2025 09:00-0400 Diastolic blood pressure 53 mm[Hg] Dr. Lupillo Alvarado MD Work Phone: 5(225)081-815795 [place] [address] 03-07-2025 09:00-0400 Heart rate 57 /min Dr. Lupillo Alvarado MD Work Phone: 4(927)118-338903 [place] [address] 03-07-2025 09:00-0400 Respiratory rate 16 /min Dr. Lupillo Alvarado MD Work Phone: 2(323)358-812003 [place] [address] 03-07-2025 09:00-0400 SaO2% (BldA) [Mass fraction] 100 % Dr. Lupillo Alvarado MD Work Phone: 1(838)850-172403 [place] [address] 03-07-2025 09:00-0400 Systolic blood pressure 122 mm[Hg] Dr. Lupillo Alvarado MD Work Phone: 0(994)687-730603 [place] [address] 03-06-2025 08:49-0400 Body height 172.[address] Lupillo Alvarado MD Work Phone: 1(375)162-679803 [place] [address] 03-06-2025 08:49-0400 Body mass index (BMI) [Ratio] 24.6 kg/m2 Dr. Lupillo Alvarado MD Work Phone: 2(845)310-211803 [place] [address] 03-06-2025 08:49-0400 Body weight 73.[address] Lupillo Alvarado MD Work Phone: 3(799)321-044303 [place] [address] 03-05-2025 17:27-0400 Body temperature 98.3 [degF] Dr. Lupillo Alvarado MD Work Phone: 6(047)577-992803 [place] [address] 03-05-2025 17:27-0400 Diastolic blood pressure 80 mm[Hg] Dr. Lupillo Alvarado MD Work Phone: 3(966)361-516003 [place] [address] 03-05-2025 17:27-0400 Heart rate 73 /min Dr. uLpillo Alvarado MD Work Phone: 4(108)417-238203 [place] [address] 03-05-2025 17:27-0400 Respiratory rate 19 /min Dr. Lupillo Alvarado MD Work Phone: 8(892)360-427803 [place] [address] 03-05-2025 17:27-0400 SaO2% (BldA) [Mass fraction] 99 % Dr. Lupillo Alvarado MD Work Phone: 5(536)117-204803 [place] [address] 03-05-2025 17:27-0400 Systolic blood pressure 110 mm[Hg] Dr. Lupillo Alvarado MD Work Phone: 9(078)685-920603 [place] [address] 03-05-2025 14:33-0400 Body height 175.[address] Lupillo Alvarado MD Work Phone: 9(233)231-377503 [place] [address] 03-05-2025 14:33-0400 Body mass index (BMI) [Ratio] 28.8 kg/m2 Dr. Lupillo Alvarado MD Work Phone: 8(378)164-254303 [place] [address] 03-05-2025 14:33-0400 Body weight 88.[address] Lupillo Alvarado MD Work Phone: 8(921)197-965803 [place] [address] 03-04-2025 15:48-0400 Body temperature 98.1 [degF] Dr. Lupillo Alvarado MD Work Phone: 1(575)268-791503 [place] [address] 03-04-2025 15:48-0400 Diastolic blood pressure 77 mm[Hg] Dr. Lupillo Alvarado MD Work Phone: 4(600)806-769703 [place] [address] 03-04-2025 15:48-0400 Heart rate 81 /min Dr. Lupillo Alvarado MD Work Phone: 6(384)527-778203 [place] [address] 03-04-2025 15:48-0400 Respiratory rate 16 /min Dr. Lupillo Alvarado MD Work Phone: 8(747)112-549203 [place] [address] 03-04-2025 15:48-0400 SaO2% (BldA) [Mass fraction] 99 % Dr. Lupillo Alvarado MD Work Phone: 0(417)448-515203 [place] [address] 03-04-2025 15:48-0400 Systolic blood pressure 120 mm[Hg] Dr. Lupillo Alvarado MD Work Phone: 6(540)711-893103 [place] [address] 03-04-2025 12:10-0400 Body height 175.[address] Lupillo Alvarado MD Work Phone: 3(003)089-283903 [place] [address] 03-04-2025 12:10-0400 Body mass index (BMI) [Ratio] 24.1 kg/m2 Dr. Lupillo Alvarado MD Work Phone: 8(863)092-902595 [place] [address] 03-04-2025 12:10-0400 Body weight 74.[address] Lupillo Alvarado MD Work Phone: 2(741)479-212503 [place] [address] 01-29-2025 05:50-0400 Body temperature 98 [degF] Dr. Lupillo Alvarado MD Work Phone: 6(929)255-191303 [place] [address] 01-29-2025 05:50-0400 Diastolic blood pressure 78 mm[Hg] Dr. Lupillo Alvarado MD Work Phone: 9(126)839-742603 [place] [address] 01-29-2025 05:50-0400 Heart rate 81 /min Dr. Lupillo Alvarado MD Work Phone: 2(110)847-415003 [place] [address] 01-29-2025 05:50-0400 Respiratory rate 18 /min Dr. Lupillo Alvarado MD Work Phone: 4(753)287-076103 [place] [address] 01-29-2025 05:50-0400 SaO2% (BldA) [Mass fraction] 98 % Dr. Lupillo Alvarado MD Work Phone: 5(779)196-222903 [place] [address] 01-29-2025 05:50-0400 Systolic blood pressure 128 mm[Hg] Dr. Lupillo Alvarado MD Work Phone: 8(481)521-388203 [place] [address] 01-29-2025 03:30-0400 Body height 175.[address] Lupillo Alvarado MD Work Phone: 8(629)390-333103 [place] [address] 01-29-2025 03:30-0400 Body mass index (BMI) [Ratio] 27.3 kg/m2 Dr. Lupillo Alvarado MD Work Phone: 3(054)699-561503 [place] [address] 01-29-2025 03:30-0400 Body weight 83.[address] Lupillo Alvarado MD Work Phone: 7(176)877-806057 [address] 05-13-2024 12:19-0400 Body temperature 99 [degF] Ivonne Cooper APRN.CNP Work Phone: [facility] 05-13-2024 12:19-0400 Body weight 79 kg Ivonne Praisler-Wood CHOCOLATE FINISHER OPERATOR.RETAIL EVENT AND SALES ASSISTANT Work Phone: [facility] 05-13-2024 12:19-0400 Diastolic blood pressure 76 mm[Hg] Ivonne Praisler-Wood CHOCOLATE FINISHER OPERATOR.RETAIL EVENT AND SALES ASSISTANT Work Phone: [facility] 05-13-2024 12:19-0400 Heart rate 111 /min Ivonne Praisler-Wood CHOCOLATE FINISHER OPERATOR.RETAIL EVENT AND SALES ASSISTANT Work Phone: [facility] 05-13-2024 12:19-0400 Respiratory rate 20 /min Ivonne Praisler-Wood CHOCOLATE FINISHER OPERATOR.RETAIL EVENT AND SALES ASSISTANT Work Phone: [facility] 05-13-2024 12:19-0400 SaO2% (BldA) [Mass fraction] 98 % Ivonne Praisler-Wood CHOCOLATE FINISHER OPERATOR.RETAIL EVENT AND SALES ASSISTANT Work Phone: [facility] 05-13-2024 12:19-0400 Systolic blood pressure 115 mm[Hg] Ivonne Praisler-Wood CHOCOLATE FINISHER OPERATOR.RETAIL EVENT AND SALES ASSISTANT Work Phone: [facility] 04-26-2024 13:59-0400 Body temperature 98.49 [degF] Lul Pendlebury CHOCOLATE FINISHER OPERATOR.RETAIL EVENT AND SALES ASSISTANT Work Phone: [facility] 04-26-2024 13:59-0400 Body weight 78 kg Llu Pendlebury CHOCOLATE FINISHER OPERATOR.RETAIL EVENT AND SALES ASSISTANT Work Phone: [facility] 04-26-2024 13:59-0400 Diastolic blood pressure 89 mm[Hg] Lul Pendlebury CHOCOLATE FINISHER OPERATOR.RETAIL EVENT AND SALES ASSISTANT Work Phone: [facility] Comment on above: checked BP x 2 04-26-2024 13:59-0400 Heart rate 85 /min Lul Pendlebury CHOCOLATE FINISHER OPERATOR.RETAIL EVENT AND SALES ASSISTANT Work Phone: [facility] 04-26-2024 13:59-0400 Respiratory rate 20 /min Lul Pendlebury CHOCOLATE FINISHER OPERATOR.RETAIL EVENT AND SALES ASSISTANT Work Phone: [facility] 04-26-2024 13:59-0400 SaO2% (BldA) [Mass fraction] 97 % Lul Pendlebury CHOCOLATE FINISHER OPERATOR.RETAIL EVENT AND SALES ASSISTANT Work Phone: [facility] 04-26-2024 13:59-0400 Systolic blood pressure 129 mm[Hg] Lul Brown CHOCOLATE FINISHER OPERATOR.RETAIL EVENT AND SALES ASSISTANT Work Phone: [facility] Comment on above: checked BP x 2 03-18-2024 12:57-0400 Body temperature 97.11 [degF] Laverne Zambrano CHOCOLATE FINISHER OPERATOR.RETAIL EVENT AND SALES ASSISTANT Work Phone: [facility] 03-18-2024 12:57-0400 Body weight 79 kg Laverne Zambrano CHOCOLATE FINISHER OPERATOR.RETAIL EVENT AND SALES ASSISTANT Work Phone: [facility] 03-18-2024 12:57-0400 Diastolic blood pressure 68 mm[Hg] Laverne Zambrano CHOCOLATE FINISHER OPERATOR.RETAIL EVENT AND SALES ASSISTANT Work Phone: [facility] 03-18-2024 12:57-0400 Heart rate 78 /min Laverne Zambrano CHOCOLATE FINISHER OPERATOR.RETAIL EVENT AND SALES ASSISTANT Work Phone: [facility] 03-18-2024 12:57-0400 Respiratory rate 16 /min Laverne Zambrano CHOCOLATE FINISHER OPERATOR.RETAIL EVENT AND SALES ASSISTANT Work Phone: [facility] 03-18-2024 12:57-0400 SaO2% (BldA) [Mass fraction] 96 % Laverne Zambrano CHOCOLATE FINISHER OPERATOR.RETAIL EVENT AND SALES ASSISTANT Work Phone: [facility] 03-18-2024 12:57-0400 Systolic blood pressure 128 mm[Hg] Laverne Zambrano CHOCOLATE FINISHER OPERATOR.RETAIL EVENT AND SALES ASSISTANT Work Phone: [facility] 03-03-2024 14:21-0400 Body temperature 98.6 [degF] Prakash Zhao MD Work Phone: [facility] 03-03-2024 14:21-0400 Body weight 78.47 kg Prakash Zhao MD Work Phone: [facility] 03-03-2024 14:21-0400 Diastolic blood pressure 74 mm[Hg] Prakash Zhao MD Work Phone: [facility] 03-03-2024 14:21-0400 Heart rate 84 /min Prakash Zhao MD Work Phone: [facility] 03-03-2024 14:21-0400 Respiratory rate 18 /min Prakash Zhao MD Work Phone: [facility] 03-03-2024 14:21-0400 Systolic blood pressure 122 mm[Hg] Prakash Zhao MD Work Phone: [facility] 02-29-2024 11:33-0400 Body temperature 97.5 [degF] Miriam Athy PA-C Work Phone: [facility] 02-29-2024 11:33-0400 Body weight 79.3 kg Miriam Athy PA-C Work Phone: [facility] 02-29-2024 11:33-0400 Diastolic blood pressure 70 mm[Hg] Miriam Athy PA-C Work Phone: [facility] 02-29-2024 11:33-0400 Heart rate 88 /min Miriam Athy PA-C Work Phone: [facility] 02-29-2024 11:33-0400 Respiratory rate 16 /min Miriam Athy PA-C Work Phone: [facility] 02-29-2024 11:33-0400 SaO2% (BldA) [Mass fraction] 97 % Miriam Athy PA-C Work Phone: [facility] 02-29-2024 11:33-0400 Systolic blood pressure 122 mm[Hg] Miriam Athy PA-C Work Phone: [facility] 01-29-2024 08:30-0400 Body temperature 98.01 [degF] Ivonne Praisler-Wood CHOCOLATE FINISHER OPERATOR.RETAIL EVENT AND SALES ASSISTANT Work Phone: [facility] 01-29-2024 08:30-0400 Body weight 77.8 kg Ivonne Praisler-Wood CHOCOLATE FINISHER OPERATOR.RETAIL EVENT AND SALES ASSISTANT Work Phone: [facility] 01-29-2024 08:30-0400 Diastolic blood pressure 64 mm[Hg] Ivonne Praisler-Wood CHOCOLATE FINISHER OPERATOR.RETAIL EVENT AND SALES ASSISTANT Work Phone: [facility] 01-29-2024 08:30-0400 Heart rate 75 /min Ivonne Praisler-Wood CHOCOLATE FINISHER OPERATOR.RETAIL EVENT AND SALES ASSISTANT Work Phone: [facility] 01-29-2024 08:30-0400 Respiratory rate 18 /min Ivonne Praisler-Wood CHOCOLATE FINISHER OPERATOR.RETAIL EVENT AND SALES ASSISTANT Work Phone: [facility] 01-29-2024 08:30-0400 SaO2% (BldA) [Mass fraction] 97 % Ivonne Praisler-Wood CHOCOLATE FINISHER OPERATOR.RETAIL EVENT AND SALES ASSISTANT Work Phone: [facility] 01-29-2024 08:30-0400 Systolic blood pressure 149 mm[Hg] Ivonne Praisler-Wood CHOCOLATE FINISHER OPERATOR.RETAIL EVENT AND SALES ASSISTANT Work Phone: [facility] 03-11-2023 17:33-0400 Diastolic Blood Pressure Non-Invasive [address] MO ROUSSEAU MD [facility] 03-11-2023 17:33-0400 Heart rate 82 /min DR MO ROUSSEAU MD [facility] 03-11-2023 17:33-0400 Respiratory rate 16 /min DR MO ROUSSEAU MD [facility] 03-11-2023 17:33-0400 Systolic Blood Pressure Non-Invasive [address] MO ROUSSEAU MD [facility] 03-11-2023 14:27-0400 Body temperature 98.6 [degF] DR MO ROUSSEAU MD [facility] 03-11-2023 14:27-0400 Diastolic Blood Pressure Non-Invasive [address] MO ROUSSEAU MD [facility] 03-11-2023 14:27-0400 Heart rate 80 /min DR MO ROUSSEAU MD [facility] 03-11-2023 14:27-0400 Respiratory rate 16 /min DR MO ROUSSEAU MD [facility] 03-11-2023 14:27-0400 Systolic Blood Pressure Non-Invasive [address] MO ROUSSEAU MD [facility] 12-22-2022 14:46-0400 Diastolic Blood Pressure Non-Invasive 85 1 MANGO REICHFIELD DO [facility] 12-22-2022 14:46-0400 Heart rate 87 /min MANGO REICHFIELD DO [facility] 12-22-2022 14:46-0400 Respiratory rate 18 /min MANGO REICHFIELD DO [facility] 12-22-2022 14:46-0400 Systolic Blood Pressure Non-Invasive 132 1 MANGO REICHFIELD DO [facility] 12-22-2022 13:34-0400 Diastolic Blood Pressure Non-Invasive 80 1 MANGO REICHFIELD DO [facility] 12-22-2022 13:34-0400 Heart rate 63 /min MANGO REICHFIELD DO [facility] 12-22-2022 13:34-0400 Respiratory rate 20 /min MANGO REICHFIELD DO [facility] 12-22-2022 13:34-0400 Systolic Blood Pressure Non-Invasive 136 1 MANGO REICHFIELD DO [facility] 12-22-2022 13:10-0400 Body height 175 cm MANGO REICHFIELD DO [facility] 04-17-2023 13:10-0400 Body temperature 98.06 [degF] MANGO TYSON DO [facility] 12-22-2022 13:10-0400 Body weight 68 kg MANGO TYSON DO [facility] 12-22-2022 13:10-0400 Diastolic Blood Pressure Non-Invasive 82 1 MANGO GREENFreshRealm DO [facility] 12-22-2022 13:10-0400 Heart rate 66 /min MANGO GREENFreshRealm DO [facility] 12-22-2022 13:10-0400 Height ZScore -0.25 MANGO GREENFreshRealm DO [facility] Comment on above: Result Comment: ^~:!ZScore Source -[facility] 12-22-2022 13:10-0400 Percent Height for Age 40.10 1 MANGO TYSON DO [facility] Comment on above: Result Comment: ^~:!Percentile Source -[facility] 12-22-2022 13:10-0400 Respiratory rate 18 /min MANGO GREENFreshRealm DO [facility] 12-22-2022 13:10-0400 Systolic Blood Pressure Non-Invasive 127 1 MANGO TYSON DO [facility] 07-01-2022 22:15-0400 Body height 175.3 cm [facility] 07-01-2022 22:15-0400 Body mass index (BMI) [Ratio] 22.15 kg/m2 [facility] 07-01-2022 22:15-0400 Body temperature 99.1 [degF] [facility] 07-01-2022 22:15-0400 Body weight 68.04 kg [facility] 07-01-2022 22:15-0400 Diastolic blood pressure 75 mm[Hg] [facility] 07-01-2022 22:15-0400 Heart rate 91 /min [facility] 07-01-2022 22:15-0400 Respiratory rate 16 /min [facility] 07-01-2022 22:15-0400 SaO2% (BldA) [Mass fraction] 97 % [facility] 07-01-2022 22:15-0400 Systolic blood pressure 126 mm[Hg] [facility] 06-21-2022 21:07-0400 Diastolic blood pressure 80 mm[Hg] LYNN Guerra MD Work Phone: [facility] 06-21-2022 21:07-0400 Heart rate 84 /min LYNN Guerra MD Work Phone: [facility] 06-21-2022 21:07-0400 Respiratory rate 18 /min LYNN Guerra MD Work Phone: [facility] 06-21-2022 21:07-0400 SaO2% (BldA) [Mass fraction] 99 % LYNN Guerra MD Work Phone: [facility] 06-21-2022 21:07-0400 Systolic blood pressure 132 mm[Hg] LYNN Guerra MD Work Phone: [facility] 06-21-2022 17:49-0400 Body height 172.7 cm LYNN Guerra MD Work Phone: [facility] 06-21-2022 17:49-0400 Body mass index (BMI) [Ratio] 22.05 kg/m2 LYNN Guerra MD Work Phone: [facility] 06-21-2022 17:49-0400 Body weight 65.77 kg LYNN Guerra MD Work Phone: [facility] 06-21-2022 17:46-0400 Body temperature 97.11 [degF] LYNN Guerra MD Work Phone: [facility] 06-18-2022 14:24-0400 Respiratory rate 16 /min Trevor Wheeler MD Work Phone: [facility] 06-18-2022 10:27-0400 Body temperature 98.01 [degF] Trevor Wheeler MD Work Phone: [facility] 06-18-2022 10:27-0400 Diastolic blood pressure 73 mm[Hg] Trevor Wheeler MD Work Phone: [facility] 06-18-2022 10:27-0400 Heart rate 70 /min Trevor Wheeler MD Work Phone: [facility] 06-18-2022 10:27-0400 SaO2% (BldA) [Mass fraction] 99 % Trevor Wheeler MD Work Phone: [facility] 06-18-2022 10:27-0400 Systolic blood pressure 130 mm[Hg] Trevor Wheeler MD Work Phone: [facility] 06-17-2022 02:23-0400 Body height 172.7 cm Trevor Wheeler MD Work Phone: [facility] 06-17-2022 02:23-0400 Body mass index (BMI) [Ratio] 22.81 kg/m2 Trevor Wheeler MD Work Phone: [facility] 06-17-2022 02:23-0400 Body weight 68.04 kg Trevor Wheeler MD Work Phone: [facility] 06-17-2022 00:20-0400 Diastolic blood pressure 74 mm[Hg] DR JUANA HUNT MD [facility] 06-17-2022 00:20-0400 Heart rate 64 /min DR JUANA HUNT MD [facility] 06-17-2022 00:20-0400 Reason For Taking VItal Signs DR JUANA HUNT MD [facility] 06-17-2022 00:20-0400 Respiratory rate 16 /min DR JUANA HUNT MD [facility] 06-17-2022 00:20-0400 Systolic blood pressure 128 mm[Hg] DR JUANA HUNT MD [facility] 06-16-2022 23:50-0400 Body temperature 98.06 [degF] DR JUANA HUNT MD [facility] 06-16-2022 23:50-0400 Diastolic blood pressure 60 mm[Hg] DR JUANA HUNT MD [facility] 06-16-2022 23:50-0400 Heart rate 60 /min DR JUANA HUNT MD [facility] 06-16-2022 23:50-0400 Respiratory rate 16 /min DR JUANA HUNT MD [facility] 06-16-2022 23:50-0400 Systolic blood pressure 131 mm[Hg] DR JUANA HUNT MD [facility] 04-17-2022 14:37-0400 Body height 175 cm PAMELA DAIGLE MD [facility] 04-17-2022 14:37-0400 Body temperature 98.42 [degF] PAMELA DAIGLE MD [facility] 04-17-2022 14:37-0400 Body weight 68.2 kg PAMELA DAIGLE MD [facility] 04-17-2022 14:37-0400 Diastolic blood pressure 89 mm[Hg] PAMELA DAIGLE MD [facility] 04-17-2022 14:37-0400 Heart rate 62 /min PAMELA DAIGLE MD [facility] 04-17-2022 14:37-0400 Height ZScore -0.23 PAMELA DAIGLE MD [facility] Comment on above: Result Comment: ^~:!ZScore [facility] 04-17-2022 14:37-0400 Percent Height for Age 41.04 1 PAMELA LYREN-SONDLES MD [facility] Comment on above: Result Comment: ^~:!Percentile Source -[facility] [place] 04-17-2022 14:37-0400 Respiratory rate 16 /min PAMELA DAIGLE MD [facility] 04-17-2022 14:37-0400 Systolic blood pressure 140 mm[Hg] PAMELA DAIGLE MD [facility] 01-31-2022 15:56-0400 Body weight 68.95 kg Prakash Zhao MD Work Phone: [facility] 01-31-2022 15:56-0400 Diastolic blood pressure 52 mm[Hg] Prakash Zhao MD Work Phone: [facility] 01-31-2022 15:56-0400 Heart rate 55 /min Prakash Zhao MD Work Phone: [facility] 01-31-2022 15:56-0400 Respiratory rate 16 /min Prakash Zhao MD Work Phone: [facility] 01-31-2022 15:56-0400 SaO2% (BldA) [Mass fraction] 98 % Prakash Zhao MD Work Phone: [facility] 01-31-2022 15:56-0400 Systolic blood pressure 110 mm[Hg] Prakash Zhao MD Work Phone: [facility] 01-30-2022 17:01-0400 Body temperature 98.01 [degF] Ivonne Cooper APRN.RETAIL EVENT AND SALES ASSISTANT Work Phone: [facility] 01-30-2022 17:01-0400 Body weight 69.22 kg Ivonne Cooper APRN.RETAIL EVENT AND SALES ASSISTANT Work Phone: [facility] 01-30-2022 17:01-0400 Diastolic blood pressure 62 mm[Hg] Ivonne Cooper APRN.RETAIL EVENT AND SALES ASSISTANT Work Phone: [facility] 01-30-2022 17:01-0400 Heart rate 82 /min Ivonnenohemy Cooper CHOCOLATE FINISHER OPERATOR.RETAIL EVENT AND SALES ASSISTANT Work Phone: [facility] 01-30-2022 17:01-0400 Respiratory rate 18 /min Ivonnenohemy Cooper CHOCOLATE FINISHER OPERATOR.RETAIL EVENT AND SALES ASSISTANT Work Phone: [facility] 01-30-2022 17:01-0400 SaO2% (BldA) [Mass fraction] 99 % Ivonnenohemy Cooper CHOCOLATE FINISHER OPERATOR.RETAIL EVENT AND SALES ASSISTANT Work Phone: [facility] 01-30-2022 17:01-0400 Systolic blood pressure 112 mm[Hg] Ivonnenohemy Cooper CHOCOLATE FINISHER OPERATOR.RETAIL EVENT AND SALES ASSISTANT Work Phone: [facility] Encounters Encounter Date Encounter Type Care Provider Facility Start: 05-03-2025 End: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 05-27-2023 meningococcal oligosaccharide (groups A, C, Y and W-135) diphtheria toxoid conjugate vaccine (MCV4O); Translations: [Menveo] DARREN CRONIN APRN-RETAIL EVENT AND SALES ASSISTANT [facility] Comment on above: Result Comment: NDC number listed in cerner [place] 39832-733-10 05-27-2023 meningococcal B vacc ine, recombinant, OMV, adjuvanted; Translations: [Bexsero] DARREN CRONIN CHOCOLATE FINISHER OPERATOR-RETAIL EVENT AND SALES ASSISTANT [facility] 06-17-2022 tetanus and diphther ia toxoids, adsorbed, preservative free, for adult use (5 Lf of tetanus toxoid and 2 Lf of diphtheria toxoid) Trevor Wheeler MD Work Phone: [facility] Work Phone: Comment on above: Result Comment: 2022: VIS DATE: 04/12/2021 12-14-2014 meningococcal polysaccharide (groups A, C, Y and W-135) diphtheria toxoid conjugate vaccine (MCV4P) DARREN CRONIN CHOCOLATE FINISHER OPERATOR-RETAIL EVENT AND SALES ASSISTANT [facility] 12-14-2014 tetanus toxoid, redu nura diphtheria toxoid, and acellular pertussis vaccine, adsorbed DARREN CRONIN CHOCOLATE FINISHER OPERATOR-RETAIL EVENT AND SALES ASSISTANT [facility] 07-15-2013 influenza virus vacc ine, unspecified formulation Ivonne Cooper CHOCOLATE FINISHER OPERATOR.RETAIL EVENT AND SALES ASSISTANT Work Phone: [facility] 04-30-2004 varicella virus vaccine MAC CRONIN CHOCOLATE FINISHER OPERATOR-RETAIL EVENT AND SALES ASSISTANT [facility] 2003 DTaP-hepatitis B and poliovirus vaccine DARREN CRONIN CHOCOLATE FINISHER OPERATOR-RETAIL EVENT AND SALES ASSISTANT [facility] 2003 DTaP-hepatitis B and poliovirus vaccine DARREN CRONIN CHOCOLATE FINISHER OPERATOR-RETAIL EVENT AND SALES ASSISTANT [facility] 2003 DTaP-hepatitis B and poliovirus vaccine DARREN CRONIN CHOCOLATE FINISHER OPERATOR-RETAIL EVENT AND SALES ASSISTANT [facility] Payers Date Payer Category Payer Medicaid [id number] 2023 Self-pay 2021 Unknown [id number] 2003 Medicaid [place] [employer] [place] [employer] [id number] 2003-Present [phone] [address] [place] [address] Medicaid [id number] 2003 Unknown [id number] 2.16.840.1.254313.3.579.2.668 2003 Unknown [id number] 2.16.840.1.533740.3.579.2.668 2003 Unknown [id number] 2.16.840.1.148005.3.579.2.668 2003 Unknown [id number] 2.16.840.1.780517.3.579.2.627 2003 Unknown [id number] 2.16.840.1.714231.3.579.2.627 2003 Unknown [id number] 2.16.840.1.663239.3.579.2.627 2003 Unknown [id number] 2.16.840.1.583622.3.579.2.627 2003 Unknown [id number] 2.16.840.1.531687.3.579.2.627 1974 Unknown [id number] 2.16.840.1.639304.3.579.2.627 1974 Unknown [id number] 2.16.840.1.311078.3.579.2.627 Unknown Unknown [id number] 2.16.840.1.067468.3.579.2.462 Unknown [id number] 2.16.840.1.592190.3.579.2.462 Unknown [id number] 2.16.840.1.121998.3.579.2.462 Unknown [id number] 2.16.840.1.668467.3.579.2.462 Unknown [id number] 2.16.840.1.097100.3.579.2.462 Unknown [id number] 2.16.840.1.163092.3.579.2.462 Unknown [id number] 2.16.840.1.484761.3.579.2.462 Unknown [id number] 2.16.840.1.150958.3.579.2.462 Unknown [id number] 2.16.840.1.515494.3.579.2.462 Unknown [id number] 2.16.840.1.849178.3.579.2.462 Unknown [id number] 2.16840.1.169712.3.579.2.462 Unknown [id number] 2.16840.1.216342.3.579.2.462 Unknown [id number] 2.16.840.1.144598.3.579.2.462 Unknown [id number] 2.16.840.1.000321.3.579.2.462 Unknown [id number] 2.16.840.1.889470.3.579.2.462 Unknown [id number] 2.16840.1.678597.3.579.2.462 Unknown [id number] 2.16840.1.310625.3.579.2.462 Unknown [id number] 2.16840.1.550963.3.579.2.462 Unknown [id number] 2.840.1.775025.3.579.2.462 Unknown [id number] 2.16840.1.096206.3.579.2.462 Social History Date Type Detail Facility Start: 12-17-2016 End: 01-29-2024 Tobacco smoking status NHIS Never smoked tobacco [facility] Work Phone: Start: 12-17-2016 End: 04-26-2024 Tobacco use and exposure Smokeless tobacco non-user [facility] Work Phone: Start: 01-30-2022 End: 01-29-2024 Alcohol intake Current non-drinker of alcohol (finding) [facility] Start: 2003 Sex Assigned At Not on file [facility] Start: 01-20-2022 End: 07-02-2022 Exposure to SARS-CoV-2 (event) Not sure [facility] Start: 01-31-2022 End: 06-21-2022 History SDOH Alcohol Frequency 1 [facility] Sex Assigned At [facility] Start: 06-17-2022 End: 02-07-2025 Alcohol intake Current drinker of alcohol (finding) [facility] Work Phone: Start: 06-17-2022 History SDOH Alcohol Frequency 2 [facility] Work Phone: Start: 12-22-2022 Tobacco smoking status Light tobacco smoker (finding) [facility] Start: 01-31-2022 End: 02-08-2025 History of Social function [facility] Work Phone: Start: 01-31-2022 End: 02-08-2025 Alcohol Use Disorder Identification Test - Consumption [AUDIT-C] [facility] Work Phone: How often to you hav e a drink containing alcohol? Never [facility] Work Phone: Average Number of Drinks Not on file [facility] Start: 03-03-2024 End: 03-27-2025 Tobacco smoking status NHIS Smokes tobacco daily [facility] Start: 2016 History of tobacco use Cigarette Smoker [facility] How often to you hav e a drink containing alcohol? 2-4 times a month [facility] How many standard dr inks containing alcohol do you have on a typical day? 10 or more [facility] How often do you hav e 6 or more drinks on 1 occasion? Monthly [facility] Start: 03-03-2024 Alcohol Comment 12 pack every other weekend [facility] Start: 08-12-2022 Tobacco Comment 3-4 cigarettes a day [facility] Start: 08-12-2022 Alcohol Comment 1 a week [facility] Start: 11-19-2015 End: 07-02-2022 Sex Male (finding) [facility] Start: 2003 Sex Assigned At Male [facility] Goals Date Patient Goal Desired Activity /State Functional Status Date Assessment Result Facility 03-07-2025 Functional status Ambulates;Up ad trev [facility] Work Phone: 03-11-2023 Functional Status Up ad trev [facility] 03-11-2023 Functional Status Standard Safet y ID band on, Call device within reach, Bed in low position, Wheels locked, Bedside Cart Locked, Safety level maintained [facility] 12-22-2022 Functional Status Up ad trev [facility] 12-22-2022 Functional Status Standard Safet y ID band on, Call device within reach, Bed in low position, Wheels locked [facility] 06-16-2022 Functional Status Standard Safet y ID band on, Call device within reach, Bed in low position, Wheels locked, Upper/Half-Length side-rails up, Bedside Cart Locked, Visitor at bedside, Safety level maintained [facility] 04-17-2022 Functional Status Up ad trev [facility] Mental Status Date Assessment Result Facility 03-07-2025 Cognitive function Light Pain [facility] Work Phone: 03-11-2023 Mental Status Orientation Oriented x 4 [facility] 03-11-[address] [facility] 12-22-2022 Mental Status Orientation Oriented x 4 [facility] 12-22-2022 Mental Status [facility] 06-16-2022 Mental Status Orientation Oriented x 4 [facility] 04-17-2022 Mental Status Oriented x [address] [facility] Clinical Notes 04-29-2021 to 03-28-2025 Telephone Encounter - Drew Marks - 03/27/2025 3:31 PM EDTTelephone Encounter - Drew Marks - 03/27/2025 3:31 PM EDT Note Date & Type Note Facility 03-28-2025 Radiology Diagnostic study note [facility] Imaging Services [address] [place] [address] CT Chest, Abd, Pel w/Contrast MR#: [id number] Acct: [id number] Name: JESSICA BARR Rep #: [id number] : 2005 M 19 From: Jaci Obrien MD PCP: ALEJANDRO Brown Status: RE G CLI Study:CT Chest, Abd, Pel w/Contrast Date of E xam: 03/28/25 Exam# [id number] Ordering Dr: Hector Brunson MD PROCEDURE: CT CHEST, ABD, PEL W/CONTRAST 03/28/2025 REASON FOR EXAM: TESTICULAR CA-IV ONLY TECHNIQUE: Chest, abdomen and pelvis CT with intravenous contrast. Coronal and Sagittal reconstruction series were provided. One or more dose reduction techniques were used (e.g., Automated exposure control, adjustment of the mA and/or kV according to patient size, use of iterative reconstruction technique. PATIENT PREPARATION: Per protocol CONTRAST: 100 mL of Isovue 370 RADIATION DOSE SUMMARY: DLP: 904 mGycm FINDINGS: LUNGS AND PLEURA: No infiltrate. No pleural effusion. No pneumothorax. No pleural thickening. 6 mm nodule within the left lower lobe best seen on series 2, image 64. 5 mm pulmonary nodule within the left lower lobe best seen on series 2, image 70 3 mm pulmonary nodule within the left lower lobe best seen on series 2, image 99 2 mm nodule within the right base best seen on series 2, image 107 MEDIASTINUM: No lymphadenopathy or mass. The heart shows no acute findings. The aorta shows no acute findings. The pulmonary trunk and branches of the vessels in the mediastinum are within normal limits. SUPRACLAVICULAR AND AXILLARY: No abnormalities seen in these regions. No mass or significant lymphadenopathy. The liver, spleen, pancreas, and both adrenal glands demonstrate no acute findings. The gallbladder is contracted. The stomach is unremarkable. The small bowel loops are not dilated. The appendix is normal. No colonic obstruction. Moderate stool burden which may reflect constipation. There is no free air or significant free fluid. The kidneys are unremarkable. The urinary bladder is distended. The pelvic structures are intact. There is no solid pelvic mass. No significant lymphadenopathy. The aorta and IVC demonstrate no acute findings. Visualized osseous structures demonstrate no acute abnormality. CT/CT Chest, Abd, Pel w/Contrast IMPRESSION: Multiple pulmonary nodules as above measuring up to 6 mm. Consider follow-up CTin 3-6 months per Fleischner guidelines. Otherwise, no other evidence of metastatic disease. No lymphadenopathy. Reading Location: [id number] CC: ALEJANDRO Mosher; Dr. Renato Brunson MD ~ [facility] Attendant: Signed [facility] 03-27-2025 Telephone encounter Note Received transferred call to office with request to schedule 2nd opinion consult at [facility]. Testicular biopsy completed at [facility] with urology. [facility] consult completed today 03/27/2025. OP CT's scheduled 04/12/2025. Office contact information (phone/fax) given to patient with request for faxed records prior to scheduling. [facility] 03-27-2025 Miscellaneous Notes Received transferred call to office with request to schedule 2nd opinion consult at [facility]. Testicular biopsy completed at [facility] with urology. [facility] consult completed today 03/27/2025. OP CT's scheduled 04/12/2025. Office contact information (phone/fax) given to patient with request for faxed records prior to scheduling. documented in this encounter [facility] 03-07-2025 Consult note [facility] 03-07-2025 Consult note [facility] 03-07-2025 Consult note [facility] 03-07-2025 Discharge summary [facility] 03-07-2025 Discharge summary [facility] 03-07-2025 Note [facility] Medical Records Department [address] [place] [address] Discharge Summary 03/07/25 1010 MR#: [id number] Acct: [id number] Name: JESSICA BARR Rep #: [id number] : 2005 19 From: Frankie Moreno MD PCP: ALEJANDRO Brown Status:ADM IN [facility] Prov[facility] Date of Admission: 03/05/25 Date of Discharge: 03/07/25 Primary Care Physician: ALEJANDRO Brown Consultations 03/05/25 18:33 Consult: Urology Routine Consulting Provider: Feliz Van Reason for Consult: right sided testicular mass and pain EMERGENT Consult: No MD Notified: Yes Date Notified: 03/05/25 Time Notified: 18:11 Method of Notification: ED Physician Initiated Reason For Visit: RIGHT-SIDED TESTICULAR PAIN AND MASS Diagnosis Discharge Diagnosis (1) Mass of right testicle: Status: Acute Code(s): N50.89 - Other specified disorders of the male genital organs (2) Pain in right testicle: Status: Acute Code(s): N50.811 - Right testicular pain Plan 19-year-old male admitted with right testicular pain and swelling ongoing for 1 week. Testicular ultrasound showed complex vascular mass. On the day of admission he woke up with increased pain and swelling. # Pain in right testicle most likely due to solid mass in the right testicle: -Ultrasound with complex vascular mass -Per ED note radiologist reported blood flow -Given patient came back to the ED with continued pain Dr. Van recontacted Patient right radical orchiectomy on 03/06/2025. IntraOp finding: Solid mass in the right testicle removed completely right at the radical orchiectomy. Pain control, IV fluid -Supportive care 03/07: Patient was asking for discharge last reading but kept him because of the seriousness of the surgery, right radical orchiectomy. I explained to him that in the immediate postop there is potential chances of a scrotal hematoma or swelling. Scrotal support for 1 week. No exertion/running or lifting heavy. Dr. Van already prescribed [place], [id number] ibuprofen as anti-inflammatory and pain and Tylenol as needed for fever, temperature more than 100.4 Fahrenheit. Follow-up with Dr. Van in 2 weeks. #Tobacco use -Advise cessation -Nicotine replacement available if desired #DVT ppx: SCDs Discharge medication reconciliation done. Discharge follow-up instructions completed. Discharge process discussed with the patient and all questions were answered to patient's satisfaction. Follow with PCP in 1 to 2 weeks Total time spent, exact 35 minutes on discharge meds reconciliation, examination, coordination of care with nurses and ancillary staff, review of imaging and blood test and discussion with the patient on follow-up instructions. Medications at Discharge Home Medications hydrocodone-acetaminophen 5-325mg 5mg-325mg 1 tab PO Q6H PRN PRN Pain 3 days #12 TABLETS 03/05/25 ondansetron 4 mg disintegrating tablet 4 mg PO Q6H PRN nausea and vomiting #12 tabs 03/05/25 sennosides 8.6 mg-docusate sodium 50 mg tablet (Stimulant Laxative Plus) 2 tab PO BID PRN PRN Constipation #0 tabs 03/07/25 Physical Exam Narrative Had right at radical inguinal orchiectomy on 03/06/2025. Mild pain mainly on walking. Scrotal support. Surgical dressing dry Seen and examined. Patient denies prior history of groin surgery or undescended testes. No family history of gonadal cancer. Complain of pain of the right testicle Physical exam General: Alert, Oriented x3, Cooperative HEENT: Atraumatic, PERRLA, EOMI, Normocephalic. Oral: No Gingival or Mucosal Lesions/ Ulcerations Neck: Supple, No JVD, Negative Carotid Bruits Chest wall/Lungs: Air entry equal in bilateral lung bases. No crepitation/rhonchi Cardiovascular: Regular rate and rhythm, Normal S1,S2, No M/G/R Abdomen: Bowel Sounds Present, Soft, Non Tender, Non-Distended : Right orchidectomy. No palpable hematoma in the scrotal sac. Left testis is normal in size, nontender no dysuria. No penile discharge. No renal angle tenderness. No suprapubic tenderness. Extremities: No edema, Capillary Refill Less than 3 Seconds Skin: Surgical dressing is dry. No hematoma Musculoskeletal: No Tenderness to Palpation of Joints or Extremities Neurological: Cranial nerves II-XII grossly intact, DTR 2+/4. No acute focal neurological deficit. Psych/Mental Status: Normal Affect, Appropriate. Weight / BMI Weight Weight: 162 lb Body Mass Index (BMI) 24.6 ABG / Lab / Microbiology Data 03/07/25 06:15 03/06/25 05:12 Laboratory: Laboratory Results - last 24 hr 03/05/25 18:02: Lactate Dehydrogenase Cancelled 03/06/25 05:12: Lactate Dehydrogenase 176 03/07/25 06:15: WBC 15.9 H, RBC 4.37 L, Hgb 12.8 L, Hct 37.7 L, MCV 86.3, MCH 29.3, MCHC 34.0, RDW Std Deviation 41.3, RDW Coeff of Emigdio 13.2, Plt Count 37 (more content not included)... [facility] 03-06-2025 Consult note Note Date/Time March 07, 2025 11:14 am [facility] Medical Records Department [address] [place] [address] Anesthesia Postop Eval II 03/06/25 1645 MR#: [id number] Acct: [id number] Name: JESSICA BARR Rep #:[id number] : 2005 19 From: Darya Borrego CRNA PCP: ALEJANDRO Brown Status:AD M IN Y Race: C Location: [place] [address] Anesthesia Postop Eval I Sum Postop Eval Completion status Anesthesia document: Postop Eval 1 completed: Yes Anesthesia Postop Eval I Summary Anesthesia Postop Eval I Summary: Anesthesia Postop Eval I: Assessment Summary Airway patent Yes 03/06/25 13:17 CONVEYOR SYSTEM OPERATOR.CSIR Spontaneous unlabored Yes 03/06/25 13:17 CONVEYOR SYSTEM OPERATOR.CSIR respirations Mental status nausea No 03/06/25 13:17 CONVEYOR SYSTEM OPERATOR.CSIR Vomiting No 03/06/25 13:17 CONVEYOR SYSTEM OPERATOR.CSIR Anesthesia Postop Eval I: Fluid Summary Crystalloid volume administer 800 03/06/25 13:17 CONVEYOR SYSTEM OPERATOR.CSIR (ml) Colloids volume administered ( ml) Blood Product volume administered (ml) Total IV fluid infused 800 03/06/25 13:17 CONVEYOR SYSTEM OPERATOR.CSIR Anesthesia Postop Eval I: Summary Notes Anesthesia Complication No 03/06/25 13:17 CONVEYOR SYSTEM OPERATOR.CSIR Anesthesia Complication Comment: Post-operative progress note Anesthesia: Postop Eval II Evaluation Mental status: Awake Pain Level: 1 nausea: No Vomiting: No 03/06/25 1645 <Electronically signed by Darya bhatti CONVEYOR SYSTEM OPERATOR> Date _ Darya Borrego CONVEYOR SYSTEM OPERATOR Cosigner Signature: Date CC: ~ Signed [facility] Work Phone: 1(453) 716-842206-30-2025 Progress note Author Frankie Moreno [facility] Note Date/Time March 06, 2025 3:28 pm [facility] Medical Records Department [address] [place] [address] Progress Note - Hospitalist 03/06/25 0710 MR#: [id number] Acct: [id number] Name: JESSICA BARR Rep #:[id number] : 2005 19 From: Frankie Schrader PCP: ALEJANDRO Brown Status:AD M IN Location: [place] [address] Reason for Visit Reason for Visit: Diagnoses Right testicular pain (03/05/25) Other specified disorders of the male genital organs (03/05/25) Objective Data Objective Data Vital Signs: Vital Signs Temp Pulse Resp BP Pulse Ox O2 Del Method 97.8 F 59 L 18 134/62 H 100 Room Air 03/06/25 03:41 03/06/25 03:41 03/06/25 03:41 03/06/25 03:41 03/06/25 03:41 03/06/25 03:46 Oxygen Delivery Method Room Air Weight: 162 lb Body Mass Index (BMI) 24.6 Intake & Output: Intake and Output for Last 24 Hours 03/04/25 03/05/25 03/06/25 23:59 23:59 23:59 Intake Total 1390 / 1390 Balance 1390 / 1390 Lab / Micro Data 03/06/25 05:12 03/06/25 05:12 Labs: Laboratory Results - last 24 hr 03/05/25 18:00: WBC 7.6, RBC 4.68, Hgb 13.4, Hct 40.0, MCV 85.5, MCH 28.6, MCHC 33.5, RDW Std Deviation 41.9, RDW Coeff of Emigdio 13.4, Plt Count 378, MPV 9.6, Immature Gran % (Auto) 0.300, Neut % (Auto) 58.8, Lymph % (Auto) 23.5, Erath % (Auto) 12.4 H, Eos % (Auto) 3.4, Baso % (Auto) 1.6 H, Absolute Neuts (auto) 4.5,Absolute Lymphs (auto) 1.78, Nucleated RBC % 0, Sodium 136, Potassium 4.4, Chloride 103, Carbon Dioxide 22.3, Anion Gap 10, BUN 6, Creatinine 0.71, Estim Creat Clear Calc 159.23, Est GFR (MDRD) Non-Af 134, BUN/Creatinine Ratio 9.0 L, Glucose 92, Calcium 9.1 '03/06/25 05:12: WBC 7.7, RBC 4.52 L, Hgb 13.3, Hct 39.3 L, MCV 86.9, MCH 29.4, MCHC 33.8, RDW Std Deviation 42.5, RDW Coeff of Emigdio 13.4, Plt Count 346, MPV 10.1, Immature Gran % (Auto) 0.400, Neut % (Auto) 62.3, Lymph % (Auto) 21.4, Erath % (Auto) 12.0 H, Eos % (Auto) 3.0, Baso % (Auto) 0.9, Absolute Neuts (auto) 4.8, Absolute Lymphs (auto) 1.64, Nucleated RBC % 0, Sodium 138, Potassium 3.9, Chloride 105, Carbon Dioxide 22.4, Anion Gap 10, BUN 9, Creatinine 0.73, Estim Creat Clear Calc 154.86, Est GFR (MDRD) Non-Af 133, BUN/Creatinine Ratio 12.8, Glucose 95, Calcium 9.1 Radiography Diagnostic Testing: Radiology Impression Testicular Ultrasound 03/05/25 14:55 IMPRESSION: 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 Additional differential within the right testicle is torsion. Small hydrocele within the right. Reading Location: [facility] Physical Exam Narrative Does have some pain on palpation of right testicle, right testicle is also elevated compared to left, no left-sided changes or pain Seen and examined. Patient denies prior history of groin surgery or undescended testes. No family history of gonadal cancer. Complain of pain of the right testicle Physical exam General: Alert, Oriented x3, Cooperative HEENT: Atraumatic, PERRLA, EOMI, Normocephalic. Oral: No Gingival or Mucosal Lesions/ Ulcerations Neck: Supple, No JVD, Negative Carotid Bruits Chest wall/Lungs: Air entry equal in bilateral lung bases. No crepitation/rhonchi Cardiovascular: Regular rate and rhythm, Normal S1,S2, No M/G/R Abdomen: Bowel Sounds Present, Soft, Non Tender, Non-Distended : Right testicle bigger than the left, very tender and sensitive. Left testisis normal in size, nontender no dysuria. No penile discharge. No renal angle tenderness. No suprapubic tenderness. Extremities: No edema, Capillary Refill Less than 3 Seconds Skin: No rashes, No breakdown Musculoskeletal: No Tenderness to Palpation of Joints or Extremities Neurological: Cranial nerves II-XII grossly intact, DTR 2+/4. No acute focal neurological deficit. Psych/Mental Status: Normal Affect, Appropriate. Assessment & Plan Assessment/Plan (1) Mass of right testicle: (2) Pain in right testicle: PLAN: Plan 19-year-old male admitted with right testicular pain and swelling ongoing for 1 week. Testicular ultrasound showed complex vascular mass. On the day of admission he woke up with increased pain and swelling. # Pain in right testicle most likely due to solid mass in the right testicle: -Ultrasound with complex vascular mass -Per ED note radiologist reported blood flow -Given patient came back to the ED with continued pain Dr. Van recontacted Patient right radical orchiectomy on 03/06/2025. IntraOp finding: Solid mass in the right testicle removed completely right at the radical orchiectomy. Pain control, IV fluid -Supportive care #Tobacco use -Advise cessation -Nicotine replacement available if desired #DVT ppx: SCDs Charges/Coding Visit Charges Inpatient E&M: 73704 Subs Hosp L2 03/06/25 1528 <Electronically signed by Frankie Moreno MD> Cosigner Signature (if applicable): CC: ~ Signed [facility] Work Phone: [phone]) 842-814306-30-2025 Discharge summary Author Feliz Van [facility] Note Date/Time March 06, 2025 2:04 pm [facility] Medical Records Department [address] [place] [address] Instructions for Home/Discharge Instructions 03/06/25 1403 MR#: [id number] Acct: [id number] Name: JESSICA BARR Rep #:[id number] : 2005 19 From: Feliz Van MD PCP: Mitali Mosher NP-C Status:AD M IN Discharge Instructions Diet Discharge Diet: No restrictions DC O2, CPAP, BIPAP needs Home O2 Discharge instructions: No Dressing / Incision Discharge Activity: Return to Normal Activity and May Not Drive (while taking narcotic pain medications.) Dressing / Incision Call your doctor if you observe: Fever of 101 or Higher Follow Up Care Please Follow Up With: Feliz Van MD When: Call [phone] for an appointment to go over tissue results Test Results: Test results from this visit will be discussed in further detail at your follow- up appointment, if applicable. Discharge Plan Admission Admit Date/Time: 03/05/25 18:06 Attending Provider: Frankie Moreno Primary Care Provider: Mitali Mosher NP Consulting Providers: Feliz Van; Felecia Roland Instructions Forms: ED Work / School Excuse Additional Instructions / Restrictions: The ultrasound shows no significant changes from yesterday. The mass is the same size. Call the urologist tomorrow to schedule an appointment. You can take ibuprofen 600 mg every 6 hours. Do not take it more frequently than this. I prescribed hydrocodone which can be taken every 6 hours. This medication can cause nausea, sedation, and constipation. I recommend you take a stool softenerlike MiraLAX or Dulcolax while using this medicine. Discharge Orders/Prescriptions Prescriptions: New hydrocodone-acetaminophen 5-325 mg tablet 1 tab PO Q6H PRN PRN (Reason: Pain) 3 Days Qty: 12 0RF ondansetron 4 mg tablet,disintegrating 4 mg PO Q6H PRN (Reason: nausea and vomiting) Qty: 12 0RF Referrals / Follow Up: Feliz Van MD [Med Staff - Active Staff] - Mitali Mosher NP, NP-Bereket [Primary Care Provider] - 03/06/25 1404<Electronically signed by Feliz Van MD>Feliz Van MD CC: SUMMER SESSIONS DIRECTOR-C Mitali Mosher; Dr. Feliz Van MD; Dr. Felecia Roland MD ~ Signed [facility] Work Phone: [phone]) [phone] Progress note [facility] Medical Records Department [address] [place] [address] Progress Note - Hospitalist 03/06/25 0710 MR#: [id number] Acct: [id number] Name: JESSICA BARR Rep #:[id number] : 2005 19 From: Frankie Schrader PCP: ALEJANDRO Brown Status:AD M IN Location: [place] [address] Reason for Visit Reason for Visit: Diagnoses Right testicular pain (03/05/25) Other specified disorders of the male genital organs (03/05/25) Objective Data Objective Data Vital Signs: Vital Signs Temp Pulse Resp BP Pulse Ox O2 Del Method 97.8 F 59 L 18 134/62 H 100 Room Air 03/06/25 03:41 03/06/25 03:41 03/06/25 03:41 03/06/25 03:41 03/06/25 03:41 03/06/25 03:46 Oxygen Delivery Method Room Air Weight: 162 lb Body Mass Index (BMI) 24.6 Intake & Output: Intake and Output for Last 24 Hours 03/04/25 03/05/25 03/06/25 23:59 23:59 23:59 Intake Total 1390 / 1390 Balance 1390 / 1390 Lab / Micro Data 03/06/25 05:12 03/06/25 05:12 Labs: Laboratory Results - last 24 hr 03/05/25 18:00: WBC 7.6, RBC 4.68, Hgb 13.4, Hct 40.0, MCV 85.5, MCH 28.6, MCHC 33.5, RDW Std Deviation 41.9, RDW Coeff of Emigdio 13.4, Plt Count 378, MPV 9.6, Immature Gran % (Auto) 0.300, Neut % (Auto) 58.8, Lymph % (Auto) 23.5, Erath % (Auto) 12.4 H, Eos % (Auto) 3.4, Baso % (Auto) 1.6 H, Absolute Neuts (auto) 4.5,Absolute Lymphs (auto) 1.78, Nucleated RBC % 0, Sodium 136, Potassium 4.4, Chloride 103, Carbon Dioxide 22.3, Anion Gap 10, BUN 6, Creatinine 0.71, Estim Creat Clear Calc 159.23, Est GFR (MDRD) Non-Af 134, BUN/Creatinine Ratio 9.0 L, Glucose 92, Calcium 9.1 '03/06/25 05:12: WBC 7.7, RBC 4.52 L, Hgb 13.3, Hct 39.3 L, MCV 86.9, MCH 29.4, MCHC 33.8, RDW Std Deviation 42.5, RDW Coeff of Emigdio 13.4, Plt Count 346, MPV 10.1, Immature Gran % (Auto) 0.400, Neut %(Auto) 62.3, Lymph % (Auto) 21.4, Erath % (Auto) 12.0 H, Eos % (Auto) 3.0, Baso % (Auto) 0.9, Absolute Neuts (auto) 4.8, Absolute Lymphs (auto) 1.64, Nucleated RBC % 0, Sodium 138, Potassium 3.9, Chlor mariana 105, Carbon Dioxide 22.4, Anion Gap 10, BUN 9, Creatinine 0.73, Estim Creat Clear Calc 154.86, Est GFR (MDRD) Non-Af 133, BUN/Creatinine Ratio 12.8, Glucose 95, Calcium 9.1 Radiography Diagnostic Testing: Radiology Impression Testicular Ultrasound 03/05/25 14:55 IMPRESSION: 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 Additional differential within the right testicle is torsion. Small hydrocele within the right. Reading Location: [facility] Physical Exam Narrative Does have some pain on palpation of right testicle, right testicle is also elevated compared to left, no left-sided changes or pain Seen and examined. Patient denies prior history of groin surgery or undescended testes. No family history of gonadal cancer. Complain of pain of the right testicle Physical exam General: Alert, Oriented x3, Cooperative HEENT: Atraumatic, PERRLA, EOMI, Normocephalic. Oral: No Gingival or Mucosal Lesions/ Ulcerations Neck: Supple, No JVD, Negative Carotid Bruits Chest wall/Lungs: Air entry equal in bilateral lung bases. No crepitation/rhonchi Cardiovascular: Regular rate and rhythm, Normal S1,S2, No M/G/R Abdomen: Bowel Sounds Present, Soft, Non Tender, Non-Distended : Right testicle bigger than the left, very tender and sensitive. Left testisis normal in size, nontender no dysuria. No penile discharge. No renal angle tenderness. No suprapubic tenderness. Extremities: No edema, Capillary Refill Less than 3 Seconds Skin: No rashes, No breakdown Musculoskeletal: No Tenderness to Palpation of Joints or Extremities Neurological: Cranial nerves II-XII grossly intact, DTR 2+/4. No acute focal neurological deficit. Psych/Mental Status: Normal Affect, Appropriate. Assessment & Plan Assessment/Plan (1) Mass of right testicle: (2) Pain in right testicle: PLAN: Plan 19-year-old male admitted with right testicular pain and swelling ongoing for 1 week. Testicular ultrasound showed complex vascular mass. On the day of admission he woke up with increased pain and swelling. # Pain in right testicle most likely due to solid mass in the right testicle: -Ultrasound with complex vascular mass -Per ED note radiologist reported blood flow -Given patient came back to the ED with continued pain Dr. Van recontacted Patient right radical orchiectomy on 03/06/2025. IntraOp finding: Solid mass in the right testicle removed completely right at the radical orchiectomy. Pain control, IV fluid -Supportive care #Tobacco use -Advise cessation -Nicotine replacement available if desired #DVT ppx: SCDs Charges/Coding Visit Charges Inpatient E&M: 97199 Subs Hosp L2 03/06/25 1528 Cosigner Signature (if applicable): CC: ~ Signed [facility]-30[facility]2025 Consult note Author Darya Borrego [facility] Note Date/Time March 07, 2025 11:14 am [facility] Medical Records Department [address] [facility] [address] Anesthesia Postop Eval I 03/06/25 1317 MR#: [id number] Acct: [id number] Name: JESSICA BARR Rep #:[id number] : 2005 19 From: Darya Borrego CRNA PCP: JUAN DANIEL BrownC Status:AD M IN Y Race: C Location: [place] [address] Anesthesia: Postop Eval I Current Vital Signs Temperature: 98 F Pulse Rate: 79 Blood Pressure: 118/61 Respiratory Rate: 20 Pulse Ox: 97 Assessment Airway patent: Yes Spontaneous unlabored respirations: Yes nausea: No Vomiting: No Anesthesia Complication: No Fluid Hydration Crystalloid volume administer (ml): 800 Total IV fluid infused: 800 Progress Note Anesthesia document: Postop Eval 1 completed: Yes 03/06/251316 <Electronically signed by Darya bhatti CRNA> Date _ Darya Borrego CRNA Cosigner Signature: Date CC: ~ Signed [facility] Work Phone: [phone]) 611-785706-30-2025 Discharge summary [facility] Medical Records Department [address] [place] [address] Instructions for Home/Discharge Instructions 03/06/25 1403 MR#: [id number] Acct: [id number] Name: JESSICA BARR Rep #:[id number] : 2005 19 From: Feliz Van MD PCP: ALEJANDRO Brown Status:AD M IN Discharge Instructions Diet Discharge Diet: No restrictions DC O2, CPAP, BIPAP needs Home O2 Discharge instructions: No Dressing / Incision Discharge Activity: Return to Normal Activity and May Not Drive (while taking narcotic pain medications.) Dressing / Incision Call your doctor if you observe: Fever of 101 or Higher Follow Up Care Please Follow Up With: Feliz Van MD When: Call [phone] for an appointment to go over tissue results Test Results: Test results from this visit will be discussed in further detail at your follow- up appointment, if applicable. Discharge Plan Admission Admit Date/Time: 03/05/25 18:06 Attending Provider: Frankie Moreno Primary Care Provider: Mitali Mosher NP Consulting Providers: Feliz Van; Felecia Roland Instructions Forms: ED Work / School Excuse Additional Instructions / Restrictions: The ultrasound shows no significant changes from yesterday. The mass is the same size. Call the urologist tomorrow to schedule an appointment. You can take ibuprofen 600 mg every 6 hours. Do not take it more frequently than this. I prescribed hydrocodone which can be taken every 6 hours. This medication can cause nausea, sedation, and constipation. I recommend you take a stool softenerlike MiraLAX or Dulcolax while using thismedicine. Discharge Orders/Prescriptions Prescriptions: New hydrocodone-acetaminophen 5-325 mg tablet 1 tab PO Q6H PRN PRN (Reason: Pain) 3 Days Qty: 12 0RF ondansetron 4 mg tablet,disintegrating 4 mg PO Q6H PRN (Reason: nausea and vomiting) Qty: 12 0RF Referrals / Follow Up: Feliz Van MD [Med Staff - Active Staff] - Mitali Mosher NP, SUMMER SESSIONS DIRECTOR-C [Primary Care Provider] - 03/06/25 1404Feliz Van MD CC: SUMMER SESSIONS DIRECTORPrinceC Mitali Mosher; Dr. Feliz Van MD; Dr. Felecia Roland MD ~ Signed [facility]06-30-2025 Consult note Author Papito Cottrell [facility] Note Date/Time March 06, 2025 11:2 6am [facility] Medical Records Department [address] [place] [address] Pre-Anesthesia Evaluation 03/06/25 1119 MR#: [id number] Acct: [id number] Name: JESSICA BARR Rep #:[id number] : 2005 19 From: Papito Cottrell MD PCP: JUAN DANIEL BrownC Status:AD M IN Y Race: C Location: [address] ASA Classification* ASA Classification ASA Classification: 2 and E Assessment & Plan Anesthesia* Anesthesia Assessment Anesthesia Assessment: Discussed sedation and/or anesthesia options, risks, benefits, and alternatives with patient/parents/legal guardian/POA. Questions invited. The patient/parents/legal guardian/POA seems to understand and agrees to proceedwith anesthesia plan. Reviewed the physical assessment, medical history, allergy history and patient home medications list prior to surgery/procedure/anesthetic and documented any changes. Performed airway and anesthesia risk assessments. Anesthesia Type Anesthesia Type: General History Source History Obtained from:: Patient and Chart Anesthesia Focused Assessment* Temperature: 98.5 F Pulse Rate: 51 Blood Pressure: 112/66 Respiratory Rate: 16 Pulse Ox: 95 Oxygen Delivery Method: Room Air Airway Assessment Mouth opens: >3 cm Mallampati Score: II Teeth Condition: Intact Neck Range of motion (ROM): Full ROM Labs Anesthesia Preop lab: CBC WBC 7.7 K/mm3 (4.4-11.0) 03/06/25 05:12 03/06/25 RBC 4.52 M/mm3 (4.6-6.2) L 03/06/25 05:12 03/06/25 Hgb 13.3 g/dL (13.0-16.5) 03/06/25 05:12 03/06/25 Hct 39.3 % (40-54) L 03/06/25 05:12 03/06/25 Plt Count 346 K/mm3 (150-450) 03/06/25 05:12 03/06/25 CHEMISTRY Potassium 3.9 mmol/L (3.3-5.1) 03/06/25 05:12 03/06/25 Sodium 138 mmol/L (133-145) 03/06/25 05:12 03/06/25 BUN 9 mg/dL (4-19) 03/06/25 05:12 03/06/25 Creatinine 0.73 mg/dL (0.70-1.20) 03/06/25 05:12 03/06/25 Glucose 95 mg/dL (70-99) 03/06/25 05:12 03/06/25 COAG Pre-Assessment Diagnosis/Proposed Procedure Planned Operative Procedure(s): Right radical orchiectomy Anesthesia History Anesthesia History - title examiner: Anesthesia History - title examiner Hx Hospitalization Any Problems With Anesthesia No 03/05/25 20:37 Cholinesterase deficiency No 03/05/25 20:37 You/Your Family Experience No: pt unsure about family 03/05/25 20:37 fever (hyperthermia) with Relationship Recent Exposure to Contagious No 03/05/25 20:37 Disease Does patient have nerve No 03/05/25 20:37 stimulator Patient instructed to have No 03/05/25 20:37 device shut off --Does patient have Pacemaker No 03/06/25 08:49 or ICD? When Was Last Pacemaker Check QUESTION #4 FULL TEXT: You/Your Family Experience fever (hyperthermia) with Anesthesia Last Oral Intake Last Oral intake: Last Oral Intake NPO since 00:00 03/06/25 08:49 Meds taken in AM with sips of water? Meds patient instructed to take am of surgery PONV PONV - title examiner: PONV - title examiner Female HX of Motion Sickness HX of N/V After Surgery Non-Smoker Duration of Surgery greater than 60 minutes Number of Risk Factors PONV Score Height & Weight Height & Weight: Anesthesia: Height & Weight Height 5 ft 8 in 03/06/25 08:49 Weight: 73.482 kg 03/06/25 08:49 Body Mass Index (BMI) 24.6 03/06/25 08:49 Respiratory Assessment Respiratory Assessment - title examiner: Respiratory Tract Infection Hx - title examiner Hx Respiratory Tract Infection No 03/05/25 20:37 Any additional information?: Yes Hx Respiratory Tract Infection: Yes History of Anesthesia Respiratory Infection details: Patient has had a cough for about a week and a half. Better for about a few days now. STOP Sleep Apnea STOP Sleep Apnea - title examiner: STOP Sleep Apnea - title examiner Hx Hypertension No 03/05/25 18:36 Hx Sleep Apnea No 03/05/25 18:36 CPAP BIPAP Do you snore loudly (louder No 03/05/25 18:36 than talking or can be heard Do you often feel tired/ No 03/05/25 18:36 fatigued/ sleepy during daytime? Has anyone observed you stop No 03/05/25 18:36 breathing during sleep? STOP Results Negative 03/05/25 18:36 QUESTION #5 FULL TEXT : Do you snore loudly (louder than talking or can be heard through closed doors)? Tobacco Use History Tobacco Use History - title examiner: Tobacco Use History - title examiner Tobacco Use Smoking Status Current every day smoker 03/05/25 18:36 Hx Tobacco Use Yes 03/05/25 18:36 Years Smoking Packs Smoked per Day Smoking Cessation Date was within the last 15 years Hx Smoking Cessation Date Hx Smoking Cessation Counseling Hematologic Medial History Hematologic Hx - title examiner: Hematologic Medical Hx - storage battery charger Hx of Blood Transfusion No 03/05/25 18:36 Hx of Transfusion in last 3 No 03/05/25 18:36 Months Date of Last Transfusion (if within last 3 months) Ever experience any problems No 03/05/25 18:36 with transfusion(s)? Specify any problems Hx of Preganancy in last 3 N/A 03/05/25 18:36 Months Nurse Filling Out Transfusion TWOLF 03/05/25 18:36 & Questions: Date: 03/05/25 03/05/25 18:36 Time: 18:37 03/05/25 18:36 Patient unable to answer at this time (ie. confused, unrespo /Reproduction History /Reproductive History - title examiner: /Reproductive Hx- title examiner Hx Now No 03/05/25 20:37 Gestational Age (in weeks): EDC: Hx Hx Para Hx Section SAB No 03/05/25 20:37 Active Medications Active Medications: Current Medications Generic Name Dose Route Start Last Admin Trade Name Freq PRN Reason Stop Dose Admin Acetaminophen 650 mg 03/05/25 18:33 03/06/25 03:36 Acetaminophen 325 Mg Tablet PO 650 mg Q6H PRN PRN Administration Pain 1-10 Or Fever >100.7 Albuterol Sulfate 2.5 mg 03/05/25 18:33 Albuterol 2.5 Mg/3 Ml Vial.Neb. INHALATION Q2H PRN PRN SOB &/OR WHEEZING Hydromorphone HCl 0.5 - 1 mg 03/06/25 08:45 03/06/25 09:09 Hydromorphone 0.5 Mg/0.5 Ml Syringe IV 1 mg Q4H PRN PRN Administration Pain Score 4-10 or Pre PT/OT Sodium Chloride 1,000 mls @ 100 mls/hr 03/05/25 18:33 03/06/25 03:43 IV 03/06/25 14:32 100 mls/hr .Q10H MYRNA Administration Sodium Chloride 250 mls @ 15 mls/hr 03/05/25 18:42 IV .[id number] PRN Saline Flush Sodium Chloride 250 mls @ 15 mls/hr 03/05/25 18:42 IV .[id number] PRN Additional IVPB Infusion Cefazolin Sodium 2 gm/ Sodium 110 mls @ 200 mls/hr 03/06/25 11:00 Chloride IV 03/06/25 11:32 X1 ONE Lactated Ringer's 1,000 mls @ 15 mls/hr 03/06/25 11:00 03/06/25 11:00 IV 15 mls/hr .Q48H MYRNA Administration Ketorolac Tromethamine 30 mg 03/05/25 18:33 03/06/25 07:50 Ketorolac 30 Mg/Ml Syringe IV 03/10/25 18:33 30 mg Q6H PRN PRN Administration Pain Score 1-10 Melatonin 10 mg 03/05/25 18:33 Melatonin 10 Mg Tablet PO QHS PRN PRN INSOMNIA Morphine Sulfate 2 mg 03/05/25 18:33 03/05/25 20:24 Morphine 2 Mg/Ml Syringe IV 2 mg Q3H PRN PRN Administration Pain Score 6-10 Nicotine Polacrilex 4 mg 03/05/25 18:33 Nicotine Polacrilex 4 Mg Gum PO Q2H PRN PRN Nicotine craving Ondansetron HCl 4 mg 03/05/25 18:33 Ondansetron 4 Mg/2 Ml Vial IV Q8H PRN PRN NAUSEA/VOMITING Oxycodone HCl 5 mg 03/05/25 18:33 03/06/25 03:36 Oxycodone 5 Mg Tablet PO 5 mg Q4H PRN PRN Administration Pain Score 4-10 Senna/Docusate Sodium 2 tablet 03/05/25 18:33 Senna/Docusate Sodium 1 Tablet PO BID PRN PRN Constipation Sodium Chloride 10 - 40 ml 03/05/25 18:42 03/06/25 09:09 0.9% Saline Lock 10 Ml Syringe IV 10 ml UD PRN Administration SALINE FLUSH PFSH Medical History Smoker Depression Anxiety Home Medications ?Medication ?Instructions ?Recorded ?Last Taken ?Type hydrocodone-acetaminophen 5-325mg 1 tab PO Q6H PRN PRN Pain 3 days 03/05/25 Unknown Rx 5mg-325mg #12 TABLETS ondansetron 4 mg disintegrating 4 mg PO Q6H PRN nausea and 03/05/25 Unknown Rx tablet vomiting #12 tabs Allergy/AdvReac Type Severity Reaction Status Date / Time No Known Allergies Allergy Verified 03/05/25 14:35 Surgical History (Updated 03/06/25 @ 11:[address] Papito Cottrell MD) Status post open reduction and internal fixation (ORIF) of fracture Social History Smoking Status: Current every day smoker tobacco type: cigarettes and e- cigarettes alcohol intake: current alcohol intake frequency: a few times a month substance use type: marijuana Review of Systems (Anesthesia) ROS Narrative System reviewed and no additional complaints, except as documented. 03/06/25 1126 <Electronically signed by Papito tom MD> Date _ Papito Cottrell MD Cosigner Signature: Date CC: ~ Signed [facility] Work Phone: 1(220) 424-604706-30-2025 Procedure note [facility] Medical Records Department [address] [place] [address] Operative Report 03/06/25 1301 MR#: [id number] Acct: [id number] Name: JESSICA BARR Rep #:[id number] : 2005 From: Feliz Van MD PCP: ALEJANDRO Brown Status:AD M IN Location: [place] [address]-1 Operative Report (Standard) Operative Information Date of Procedure: 03/06/25 Pre-Operative Diagnosis: Right testicular mass Post-Operative Diagnosis: The same Surgery/Procedure Performed: Right radical orchiectomy consumer marketing specialist: No Type of Anesthesia: General RN Documented Start/Stop Times: Operation Date: 03/06/25 12:00 Case Time Into Pre-Op 03/06/25 10:52 Out of Pre-Op 03/06/25 12:16 Anesthesia Start 03/06/25 12:20 Into Room 03/06/25 12:20 Procedure Start 03/06/25 12:35 Procedure Start Time: 12:35 Procedure Stop Time: 13:02 Select all DRAINS/GRAFTS/IMPLANTS that apply: None Estimated Blood Loss: None Specimen collected: No Description of surgery: Patient was seen in the preoperative area, he has an abnormal rigth testicle which on exam is abnormal and also has a ultrasound is abnormal on the right side. Because of this we discussed the potential risk for malignancy and working to proceed with a radical orchiectomy on the right side. He understands is possible that the testicle even the looks abnormal and feels abnormal may not be cancerous it could be scar tissue it could be inflammation or infection. He understands no guarantee that itis cancer. Also there is no guarantees that if we remove the testicle and he has cancer is cured and the patient may require more treatments such as chemotherapy and radiation if he does have testicle cancer. Preoperative tumor markers were drawn. We discussedthe risk of the procedure including risk of getting a hernia at the site of surgery, infection or bleeding. We also discussed the possibility of low testosterone level and infertility with one testicle. Patient was taken back to the operating room at the smooth induction of anesthesia. The penis and genitals were prepped and draped in usual sterile fashion, the abdomen was shaved as well as the testicles were shaved. The side of the orchiectomy which is the right side was marked. A timeout was performed. I then made a inguinal incision on the right side, dissected through the skin superficial fat Lynda's fascia with it was then incised there was a small blood vessel across Lynda's fascia that was cauterized and suture-ligated. The I then came across the top of the inguinal canal and openedup theinguinal canal with a joker. We then encircled the blood vessels and performed high ligation of the testicle I then dissected out the testicle on the right side and delivered it from the testicle through the inguinal incision. We then dissected using electrocautery to free the testicle from the scrotum and transected through the gubernaculum. And the testicle was placed into a container andsent to pathology. We then made sure that the vessels were clear and there were not bleeding we irrigated the wound we closed the anterior layer of the inguinal canal with interrupted stitches and then we closed the Lynda's fascia and then closed the skin with subcuticular stitches. All needles stitches were accounted for. There was a complete count at the end of the case after closure. Patient was taken back to the PACU in stable condition. Surgical Findings: Solid mass in the right testicle removed completely right at the radical orchiectomy Complications Complications: No Admit VTE Documentation VTE Present on Admission: No VTE Mechan Device Prophylaxis: SCD's VTE Pharm Prophylaxis ordered?: No 03/06/25 1304 Cosigner Signature (if applicable): CC: ALEJANDRO Mosher; Dr. Feliz Van MD; Dr. Felecia Roland MD~ Signed [facility]06-30-2025 Consult note [facility] Medical Records Department [address] [place] [address] Pre-Anesthesia Evaluation 03/06/25 1119 MR#: [id number] Acct: [id number] Name: JESSICA BARR Rep #:[id number] : 2005 From: Papito Cottrell MD PCP: ALEJANDRO Brown Status:AD M IN Y Race: C Location: [place] [address] -1 ASA Classification* ASA Classification ASA Classification: 2 and E Assessment & Plan Anesthesia* Anesthesia Assessment Anesthesia Assessment: Discussed sedation and/or anesthesia options, risks, benefits, and alternatives with patient/parents/legal guardian/POA. Questions invited. The patient/parents/legal guardian/POA seems to understand and agrees to proceedwith anesthesia plan. Reviewed the physical assessment, medical history, allergy history and patient home medications list prior to surgery/procedure/anesthetic and documented any changes. Performed airway and anesthesia risk assessments. Anesthesia Type Anesthesia Type: General History Source History Obtained from:: Patient and Chart Anesthesia Focused Assessment* Temperature: 98.5 F Pulse Rate: 51 Blood Pressure: 112/66 Respiratory Rate: 16 Pulse Ox: 95 Oxygen Delivery Method: Room Air Airway Assessment Mouth opens: >3 cm Mallampati Score: II Teeth Condition: Intact Neck Range of motion (ROM): Full ROM Labs Anesthesia Preop lab: CBC WBC 7.7 K/mm3 (4.4-11.0) 03/06/25 05:12 03/06/25 RBC 4.52 M/mm3 (4.6-6.2) L 03/06/25 05:12 03/06/25 Hgb 13.3 g/dL (13.0-16.5) 03/06/25 05:12 03/06/25 Hct 39.3 % (40-54) L 03/06/25 05:12 03/06/25 Plt Count 346 K/mm3 (150-450) 03/06/25 05:12 03/06/25 CHEMISTRY Potassium 3.9 mmol/L (3.3-5.1) 03/06/25 05:12 03/06/25 Sodium 138 mmol/L (133-145) 03/06/25 05:12 03/06/25 BUN 9 mg/dL (4-19) 03/06/25 05:12 03/06/25 Creatinine 0.73 mg/dL (0.70-1.20) 03/06/25 05:12 03/06/25 Glucose 95 mg/dL (70-99) 03/06/25 05:12 03/06/25 COAG Pre-Assessment Diagnosis/Proposed Procedure Planned Operative Procedure(s): Right radical orchiectomy Anesthesia History Anesthesia History - title examiner: Anesthesia History - title examiner Hx Hospitalization Any Problems With Anesthesia No 03/05/25 20:37 Cholinesterase deficiency No 03/05/25 20:37 You/Your Family Experience No: pt unsure about family 03/05/25 20:37 fever (hyperthermia) with Relationship Recent Exposure to Contagious No 03/05/25 20:37 Disease Does patient have nerve No 03/05/25 20:37 stimulator Patient instructed to have No 03/05/25 20:37 device shut off --Does patient have Pacemaker No 03/06/25 08:49 or ICD? When Was Last Pacemaker Check QUESTION #4 FULL TEXT: You/Your Family Experience fever (hyperthermia) with Anesthesia Last Oral Intake Last Oral intake: Last Oral Intake NPO since 00:00 03/06/25 08:49 Meds taken in AM with sips of water? Meds patient instructed to take am of surgery PONV PONV - title examiner: PONV - title examiner Female HX of Motion Sickness HX of N/V After Surgery Non-Smoker Duration of Surgery greater than 60 minutes Number of Risk Factors PONV Score Height & Weight Height & Weight: Anesthesia: Height & Weight Height 5 ft 8 in 03/06/25 08:49 Weight: 73.482 kg 03/06/25 08:49 Body Mass Index (BMI) 24.6 03/06/25 08:49 Respiratory Assessment Respiratory Assessment - title examiner: Respiratory Tract Infection Hx - title examiner Hx Respiratory Tract Infection No 03/05/25 20:37 Any additional information?: Yes Hx Respiratory Tract Infection: Yes History of Anesthesia Respiratory Infection details: Patient has had a cough for about a week and a half. Better for about a few days now. STOP Sleep Apnea STOP Sleep Apnea - title examiner: STOP Sleep Apnea - title examiner Hx Hypertension No 03/05/25 18:36 Hx Sleep Apnea No 03/05/25 18:36 CPAP BIPAP Do you snore loudly (louder No 03/05/25 18:36 than talking or can be heard Do you often feel tired/ No 03/05/25 18:36 fatigued/ sleepy during daytime? Has anyone observed you stop No 03/05/25 18:36 breathing during sleep? STOP Results Negative 03/05/25 18:36 QUESTION #5 FULL TEXT : Do you snore loudly (louder than talking or can be heard through closeddoors)? Tobacco Use History Tobacco Use History - title examiner: Tobacco Use History - title examiner Tobacco Use Smoking Status Current every day smoker 03/05/25 18:36 Hx Tobacco Use Yes 03/05/25 18:36 Years Smoking Packs Smoked per Day Smoking Cessation Date was within the last 15 years Hx Smoking Cessation Date Hx Smoking Cessation Counseling Hematologic Medial History Hematologic Hx - title examiner: Hematologic Medical Hx - storage battery charger Hx of Blood Transfusion No 03/05/25 18:36 Hx of Transfusion in last 3 No 03/05/25 18:36 Months Date of Last Transfusion (if within last 3 months) Ever experience any problems No 03/05/25 18:36 with transfusion(s)? Specify any problems Hx of Preganancy in last 3 N/A 03/05/25 18:36 Months Nurse Filling Out Transfusion TWOLF 03/05/25 18:36 & Questions: Date: 03/05/25 03/05/25 18:36 Time: 18:37 03/05/25 18:36 Patient unable to answer at this time (ie. confused, unrespo /Reproduction History /Reproductive History - title examiner: /Reproductive Hx- title examiner Hx Now No 03/05/25 20:37 Gestational Age (in weeks): EDC: Hx Hx Para Hx Section SAB No 03/05/25 20:37 Active Medications Active Medications: Current Medications Generic Name Dose Route Start Last Admin Trade Name Freq PRN Reason Stop Dose Admin Acetaminophen 650 mg 03/05/25 18:33 03/06/25 03:36 Acetaminophen 325 Mg Tablet PO 650 mg Q6H PRN PRN Administration Pain 1-10 Or Fever >100.7 Albuterol Sulfate 2.5 mg 03/05/25 18:33 Albuterol 2.5 Mg/3 Ml Vial.Neb. INHALATION Q2H PRN PRN SOB &/OR WHEEZING Hydromorphone HCl 0.5 - 1 mg 03/06/25 08:45 03/06/25 09:09 Hydromorphone 0.5 Mg/0.5 Ml Syringe IV 1 mg Q4H PRN PRN Administration Pain Score 4-10 or Pre PT/OT Sodium Chloride 1,000 mls @ 100 mls/hr 03/05/25 18:33 03/06/25 03:43 IV 03/06/25 14:32 100 mls/hr .Q10H MYRNA Administration Sodium Chloride 250 mls @ 15 mls/hr 03/05/25 18:42 IV .[id number] PRN Saline Flush Sodium Chloride 250 mls @ 15 mls/hr 03/05/25 18:42 IV .[id number] PRN Additional IVPB Infusion Cefazolin Sodium 2 gm/ Sodium 110 mls @ 200 mls/hr 03/06/25 11:00 Chloride IV 03/06/25 11:32 X1 ONE Lactated Ringer's 1,000 mls @ 15 mls/hr 03/06/25 11:00 03/06/25 11:00 IV 15 mls/hr .Q48H MYRNA Administration Ketorolac Tromethamine 30 mg 03/05/25 18:33 03/06/25 07:50 Ketorolac 30 Mg/Ml Syringe IV 03/10/25 18:33 30 mg Q6H PRN PRN Administration Pain Score 1-10 Melatonin 10 mg 03/05/25 18:33 Melatonin 10 Mg Tablet PO QHS PRN PRN INSOMNIA Morphine Sulfate 2 mg 03/05/25 18:33 03/05/25 20:24 Morphine 2 Mg/Ml Syringe IV 2 mg Q3H PRN PRN Administration Pain Score 6-10 Nicotine Polacrilex 4 mg 03/05/25 18:33 Nicotine Polacrilex 4 Mg Gum PO Q2H PRN PRN Nicotine craving Ondansetron HCl 4 mg 03/05/25 18:33 Ondansetron 4 Mg/2 Ml Vial IV Q8H PRN PRN NAUSEA/VOMITING Oxycodone HCl 5 mg 03/05/25 18:33 03/06/25 03:36 Oxycodone 5 Mg Tablet PO 5 mg Q4H PRN PRN Administration Pain Score 4-10 Senna/Docusate Sodium 2 tablet 03/05/25 18:33 Senna/Docusate Sodium 1 Tablet PO BID PRN PRN Constipation Sodium Chloride 10 - 40 ml 03/05/25 18:42 03/06/25 09:09 0.9% Saline Lock 10 Ml Syringe IV 10 ml UD PRN Administration SALINE FLUSH PFSH Medical History Smoker Depression Anxiety Home Medications ?Medication ?Instructions ?Recorded ?Last Taken ?Type hydrocodone-acetaminophen 5-325mg 1 tab PO Q6H PRN PRN Pain 3 days 03/05/25 Unknown Rx 5mg-325mg #12 TABLETS ondansetron 4 mg disintegrating 4 mg PO Q6H PRN nausea and 03/05/25 Unknown Rx tablet vomiting #12 tabs Allergy/AdvReac Type Severity Reaction Status Date / Time No Known Allergies Allergy Verified 03/05/25 14:35 Surgical History (Updated 03/06/25 @ 11:[address] Papito Cottrell MD) Status post open reduction and internal fixation (ORIF) of fracture Social History Smoking Status: Current every day smoker tobacco type: cigarettes and e-cigarettes alcohol intake: current alcohol intake frequency: a few times a month substance use type: marijuana Review of Systems (Anesthesia) ROS Narrative System reviewed and no additional complaints, except as documented. 03/06/25 1126 negro CALVIN> Date _ Papito Cottrell MD Cosign Signature: Date CC: ~ Signed [facility]06-30-2025 Hospital Discharge instructionsAdditional Instructions The ultrasound shows no significant changes [...] MiraLAX or Dulcolax while using this medicine. Date of Discharge: 03/07/25[facility] Work Phone: 1(503) 484-159206-30-2025 Consult note Author Feliz Rehan [facility] Note Date/Time March 06, 2025 7:27 am [facility] Medical Records Department [address] [place] [address] Consultation - Urology 03/06/25725 MR#: [id number] Acct: [id number] Name: JESSICA BARR Rep #:[id number] : 2005 19 From: Feliz Van MD PCP: ALEJANDRO Brown Status:AD M IN [place] [facility] [id number] Assessment & Plan Assessment/Plan (1) Mass of right testicle: PLAN: Plan to proceed with a right radical orchiectomy suspected testicular desiree the right testicle (2) Pain in right testicle: (3) Physical exam, routine: HPI Consult Data Date of Consult: 03/06/25 HPI Narrative Reason for Consultation: Solid right testicular mass HPI Narrative: JESSICA BARR, is a 19 M who presents to the emergency room with second time with pain in the right testicle he has a enlarging mass on ultrasound this demonstrated vascular and enlarging mass in the right testicle this is very concerning for a malignancy patient was admitted for pain control taken to surgery immediately today for a right radical orchiectomy this is very likely a testicular cancer. [facility] Medical History Smoker Depression Anxiety Home Medications ?Medication ?Instructions ?Recorded ?Last Taken ?Type hydrocodone-acetaminophen 5-325mg 1 tab PO Q6H PRN PRN Pain 3 days 03/05/25 Unknown Rx 5mg-325mg #12 TABLETS ondansetron 4 mg disintegrating 4 mg PO Q6H PRN nausea and 03/05/25 Unknown Rx tablet vomiting #12 tabs Allergy/AdvReac Type Severity Reaction Status Date / Time No Known Allergies Allergy Verified 03/05/25 14:35 Surgical History Status post open reduction and internal fixation (ORIF) of fracture Social History Smoking Status: Current every day smoker tobacco type: cigarettes and e- cigarettes alcohol intake: current alcohol intake frequency: a few times a month substance use type: marijuana ROS Constitutional Constitutional: Denies chills, fever(s) or malaise Eyes Eyes: Denies blurry vision or change in vision ENT HEENT: Reports none Cardiovascular Cardiovascular: Denies chest pain or palpitations Respiratory/Chest Respiratory/Chest: Denies cough or shortness of breath with exertion Gastrointestinal Gastrointestinal: Denies abdominal pain, constipation or diarrhea Musculoskeletal Musculoskeletal: Denies back pain, joint stiffness or joint swelling Integumentary Integumentary: Denies dry skin, jaundice, lesions or rash Neurologic Neurologic: Denies confusion, syncope or weakness Psychiatric Psychiatric: Reports none; Denies anxiety or depression Endocrine Endocrinology: Denies excessive sweating, fatigue or flushing Hematologic/Lymphatic Hematologic/Lymphatic: Denies anemia, easy bleeding or easy bruising Lab / Micro Data 03/06/25 05:12 03/06/25 05:12 Labs: Laboratory Results - last 24 hr 03/05/25 18:00: WBC 7.6, RBC 4.68, Hgb 13.4, Hct 40.0, MCV 85.5, MCH 28.6, MCHC 33.5, RDW Std Deviation 41.9, RDW Coeff of Emigdio 13.4, Plt Count 378, MPV 9.6, Immature Gran % (Auto) 0.300, Neut % (Auto) 58.8, Lymph % (Auto) 23.5, Erath % (Auto) 12.4 H, Eos % (Auto) 3.4, Baso % (Auto) 1.6 H, Absolute Neuts (auto) 4.5,Absolute Lymphs (auto) 1.78, Nucleated RBC % 0, Sodium 136, Potassium 4.4, Chloride 103, Carbon Dioxide 22.3, Anion Gap 10, BUN 6, Creatinine 0.71, Estim Creat Clear Calc 159.23, Est GFR (MDRD) Non-Af 134, BUN/Creatinine Ratio 9.0 L, Glucose 92, Calcium 9.1 03/06/25 05:12: WBC 7.7, RBC 4.52 L, Hgb 13.3, Hct 39.3 L, MCV 86.9, MCH 29.4, MCHC 33.8, RDW Std Deviation 42.5, RDW Coeff of Emigdio 13.4, Plt Count 346, MPV 10.1, Immature Gran % (Auto) 0.400, Neut % (Auto) 62.3, Lymph % (Auto) 21.4, Erath % (Auto) 12.0 H, Eos % (Auto) 3.0, Baso % (Auto) 0.9, Absolute Neuts (auto) 4.8, Absolute Lymphs (auto) 1.64, Nucleated RBC % 0, Sodium 138, Potassium 3.9, Chloride 105, Carbon Dioxide 22.4, Anion Gap 10, BUN 9, Creatinine 0.73, Estim Creat Clear Calc 154.86, Est GFR (MDRD) Non-Af 133, BUN/Creatinine Ratio 12.8, Glucose 95, Calcium 9.1 Imaging Radiology Impression Testicular Ultrasound 03/05/25 14:55 IMPRESSION: 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 Additional differential within the right testicle is torsion. Small hydrocele within the right. Reading Location: [facility] 03/06/25 0727 <Electronically signed by Feliz Van MD> Cosigner Signature (if applicable): CC: ALEJANDRO Mosher~ Signed [facility] Work Phone: 1(498) 477-628006-30-2025 Consult note [facility] Medical Records Department [address] [place] [address] Consultation - Urology 03/06/25 0726 MR#: [id number] Acct: [id number] Name: JESSICA BARR Rep #:[id number] : 2005 19 From: Feliz Van MD PCP: ALEJANDRO Brown Status:AD M IN Location: [place] [id number] Assessment & Plan Assessment/Plan (1) Mass of right testicle: PLAN: Plan to proceed with a right radical orchiectomy suspected testicular desiree the right testicle (2) Pain in right testicle: (3) Physical exam, routine: HPI Consult Data Date of Consult: 03/06/25 HPI Narrative Reason for Consultation: Solid right testicular mass HPI Narrative: JESSICA TOMASSETTI, is a 19 M who presents to the emergency room with second time with pain in the right testicle he has a enlarging mass on ultrasound this demonstrated vascular and enlarging mass in the right testicle this is very concerning for a malignancy patient was admitted for pain control taken to surgery immediately today for a right radical orchiectomy this is very likely a testicular cancer. [facility] Medical History Smoker Depression Anxiety Home Medications ?Medication ?Instructions ?Recorded ?Last Taken ?Type hydrocodone-acetaminophen 5-325mg 1 tab PO Q6H PRN PRN Pain 3 days 03/05/25 Unknown Rx 5mg-325mg #12 TABLETS ondansetron 4 mg disintegrating 4 mg PO Q6H PRN nausea and 03/05/25 Unknown Rx tablet vomiting #12 tabs Allergy/AdvReac Type Severity Reaction Status Date / Time No Known Allergies Allergy Verified 03/05/25 14:35 Surgical History Status post open reduction and internal fixation (ORIF) of fracture Social History Smoking Status: Current every day smoker tobacco type: cigarettes and e-cigarettes alcohol intake: current alcohol intake frequency: a few times a month substance use type: marijuana ROS Constitutional Constitutional: Denies chills, fever(s) or malaise Eyes Eyes: Denies blurry vision or change in vision ENT HEENT: Reports none Cardiovascular Cardiovascular: Denies chest pain or palpitations Respiratory/Chest Respiratory/Chest: Denies cough or shortness of breath with exertion Gastrointestinal Gastrointestinal: Denies abdominal pain, constipation or diarrhea Musculoskeletal Musculoskeletal: Denies back pain, joint stiffness or joint swelling Integumentary Integumentary: Denies dry skin, jaundice, lesions or rash Neurologic Neurologic: Denies confusion, syncope or weakness Psychiatric Psychiatric: Reports none; Denies anxiety or depression Endocrine Endocrinology: Denies excessive sweating, fatigue or flushing Hematologic/Lymphatic Hematologic/Lymphatic: Denies anemia, easy bleeding or easy bruising Lab / Micro Data 03/06/25 05:12 03/06/25 05:12 Labs: Laboratory Results - last 24 hr 03/05/25 18:00: WBC 7.6, RBC 4.68, Hgb 13.4, Hct 40.0, MCV 85.5, MCH 28.6, MCHC 33.5, RDW Std Deviation 41.9, RDW Coeff of Emigdio 13.4, Plt Count 378, MPV 9.6, Immature Gran % (Auto) 0.300, Neut % (Auto) 58.8, Lymph % (Auto) 23.5, Erath % (Auto) 12.4 H, Eos % (Auto) 3.4, Baso % (Auto) 1.6 H, Absolute Neuts (auto) 4.5,Absolute Lymphs (auto) 1.78, Nucleated RBC % 0, Sodium 136, Potassium 4.4, Chloride 103, Carbon Dioxide 22.3, Anion Gap 10, BUN 6, Creatinine 0.71, Estim Creat Clear Calc 159.23, Est GFR (MDRD) Non-Af 134, BUN/Creatinine Ratio 9.0 L, Glucose 92, Calcium 9.1 03/06/25 05:12: WBC 7.7, RBC 4.52 L, Hgb 13.3, Hct 39.3 L, MCV 86.9, MCH 29.4, MCHC 33.8, RDW Std Deviation 42.5, RDW Coeff of Emigdio 13.4, Plt Count 346, MPV 10.1, Immature Gran % (Auto) 0.400, Neut % (Auto) 62.3, Lymph % (Auto) 21.4, Erath % (Auto) 12.0 H, Eos % (Auto) 3.0, Baso % (Auto) 0.9, Absolute Neuts (auto) 4.8, Absolute Lymphs (auto) 1.64, Nucleated RBC % 0, Sodium 138, Potassium 3.9, Chloride 105, Carbon Dioxide 22.4, Anion Gap 10, BUN 9, Creatinine 0.73, Estim Creat Clear Calc 154.86, Est GFR (MDRD) Non-Af 133, BUN/Creatinine Ratio 12.8, Glucose 95, Calcium 9.1 Imaging Radiology Impression Testicular Ultrasound 03/05/25 14:55 IMPRESSION: 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 Additional differential within the right testicle is torsion. Small hydrocele within the right. Reading Location: [id number] 03/06/25 0727 Cosigner Signature (if applicable): CC: ALEJANDRO Mosher~ Signed [facility]06-29-2025 Discharge summary Author Batsheva García [facility] Note Date/Time March 05, 2025 6:15 pm [facility] Medical Records Department [address] [place] [address] Emergency Department Summary 03/05/25 MR#: [id number] Acct: [id number] Name: JESSICA BARR Rep #:[id number] : 2005 19 From: Batsheva KIRBY PCP: ALEJANDRO Brown Status:AD M IN [place] [facility] [place] <Statement entered by Kobe Pisano, - 03/05/25 18:15> Patient was seen and examined with physician magistrate assistant Batsheva All components of the history and physical confirmed and agreed. History of present illness and physical exam: Patient 19-year-old male with no known significant past medical history who presents to the emergency department with a chief complaint of right testicular pain. Once again I saw this patient yesterday and he states that this has been going on for at least a week if not longer. 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 He states that he has been taking a lot of ibuprofen this morning to try to control the pain this was not helping. Review of systems: Agree with above Physical exam: Agree with above will add on the genitourinary exam as this was performed by myself which she does have tenderness palpation of the right testicle however the testicle is in the normal lie no concern Jennifer's gangrene, no urethral discharge no inguinal hernias noted no tenderness palpation in the left testicle no overlying skin changes no rashes or lesions MDM patient is a 19-year-old male who presents to the emergency department chief complaint of right testicular pain. Once again he was evaluated yesterday here by myself and he came back with what he describes worsening pain and swelling. On the differential diagnose includes Melamin to testicular cancer as there is amass noted yesterday, torsion, UTI, orchitis, epididymitis. Repeat ultrasound will be performed. Repeat ultrasound was performed and showed a complex vascular mass within the right testicle measuring 3.3 x 2.6 x 2.4 cm which is grossly stable in size. Small hydrocele within the right. We reached out to on-call urologist Dr. Van who originally states that the patient go home with pain control and follow-up in the office tomorrow morning however he did call back and noted that he would like the patient admitted and will plan for surgery tomorrow. Patient is agreeable this plan as well. Patient's case was discussed with hospitalist Dr. Roland who accept patient for admission. Final impression: Right testicular mass Right testicular pain Disposition: Patient will be admitted to the hospital Supervising attending attestation: Kobe FISHER History of Present Illness Chief Complaint: Male Pain/Injury Narrative Narrative: 19-year-old male with no past medical history has had 1 week of right testicularpain and swelling. He was seen here yesterday and had a testicular ultrasound with a complex vascular mass. Dr. Van reviewed it and thought this was testicular cancer. 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 He is taking ibuprofen. No direct trauma. No urinary symptoms. No fever or chills. PFSH PFS Medical History Depression Anxiety Home Medications ?Medication ?Instructions ?Recorded ?Last Taken ?Type gabapentin 100 mg capsule 100 mg PO TID 03/05/25 Unkno wn History hydrocodone-acetaminophen 5-325mg 1 tab PO Q6H PRN PRN Pain 3 days 03/05/25 Unknown Rx 5mg-325mg #12 TABLETS ondansetron 4 mg disintegrating 4 mg PO Q6H PRN nausea and 03/05/25 Unknown Rx tablet vomiting #12 tabs Allergy/AdvReac Type Severity Reaction Status Date / Time No Known Allergies Allergy Verified 03/05/25 14:35 Surgical History Status post open reduction and internal fixation (ORIF) of fracture Social History Smoking Status: Current every day smoker tobacco type: cigarettes and e- cigarettes alcohol intake: current alcohol intake frequency: a few times a month substance use type: marijuana ROS ROS ED ROS Narrative Constitutional: Negative for fever, chills, malaise. GI: Negative for abdominal pain, nausea, vomiting. : Negative for dysuria, hematuria or frequency. EXAM Physical Exam Narrative Exam Narrative: CONST: Patient sitting in no acute distress. EYES: Normal inspection. NECK: Normal inspection. RESP: No respiratory distress, CTAB. CVS: Regular rate and rhythm, no murmur, no gallop. ABD: Soft and nontender, no guarding or rebound, nondistended. : Right testicle swollen similar to yesterday's exam, normal testicular lie. SKIN: Color normal, no rash, warm, dry, intact. EXTREMITIES: Normal appearance, no pedal edema. NEURO: Alert and answering questions appropriately. PSYCH: Normal affect. Const Vital Signs: 03/05/25 14:33 03/05/25 17:27 Temperature 98.3 F 98.3 F Temperature Source Oral Pulse Rate 73 73 Respiratory Rate 19 H 19 H Blood Pressure 117/80 110/80 Blood Pressure Mean 92 90 Pulse Ox 99 99 MDM MDM MDM Narrative Medical decision making narrative: Consults: Urology, medicine Differential: Mass, torsion 19-year-old male has had right scrotal pain x 1 week. Yesterday in the ED a testicular ultrasound showed a complex vascular mass which urology thought was testicular cancer. Today he feels the right testicular pain and swelling is worse after he was more active yesterday. He appears well and nontoxic. Vital stable. Abdomen soft, nontender. Dr. Pisano did the testicular exam and statesthe amount of swelling is the same or improved from yesterday. Ultrasound showsa stable complex vascular mass in the right testicle. The radiologist called and said there is blood flow. I spoke with Dr. Van who states if he is having significant pain he can be admitted to the medicine service, n.p.o. at midnight, and he will do surgery to remove the mass tomorrow. Radiography Diagnostic Testing: Clinical Impression(s) from Imaging Studies Testicular Ultrasound 03/05/25 14:55 IMPRESSION: 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 Additional differential within the right testicle is torsion. Small hydrocele within the right. Reading Location: [facility] Discharge Plan Triage Chief Complaint: Male Pain/Injury ED Midlevel Provider: Batsheva García ED Provider: Kobe Pisano Dx/Rx/DC Orders Clinical Impression: Pain in right testicle, Mass of right testicle Prescriptions: New hydrocodone-acetaminophen 5-325 mg tablet 1 tab PO Q6H PRN PRN (Reason: Pain) 3 Days Qty: 12 0RF ondansetron 4 mg tablet,disintegrating 4 mg PO Q6H PRN (Reason: nausea and vomiting) Qty: 12 0RF No Action gabapentin 100 mg capsule 100 mg PO TID Stand Alone Forms: ED Work / School Excuse Primary Care Provider: Mitali Mosher NP Referrals: Feliz Van MD [Med Staff - Active Staff] - Mitali Mosher NP, [employer] DIRECTOR-C [Primary Care Provider] - Activity Restrictions/Additional Instructions: The ultrasound shows no significant changes from yesterday. The mass is the same size. Call the urologist tomorrow to schedule an appointment. You can take ibuprofen 600 mg every 6 hours. Do not take it more frequently than this. I prescribed hydrocodone which can be taken every 6 hours. This medication can cause nausea, sedation, and constipation. I recommend you take a stool softenerlike MiraLAX or Dulcolax while using this medicine. Print Language: Namibian Disposition Disposition: Home, Self Care Discharge Date/Time: 03/05/25 17:30 What to do if you have Problems For any increased pain, shortness of breath, bleeding, nausea or vomiting, chestpain, or any unexpected problems, contact your Primary Care Provider. Call [facility] ([phone]) or report to the closest Emergency Room. Call 911 if necessary. 03/05/25 175 <Electronically signed by Batsheva García PA> Cosigner Signature (if applicable): 03/05/251814 <Electronically signed by Kobe Pisano DO> CC: [employer] DIRECTOR-C Mitali Mosher ~ Signed [facility] Work Phone: 1(473) 723-528906-29-2025 History and physical note Author Felecia Roland [facility] Note Date/Time March 05, 2025 6:12 pm [facility] Medical Records Department [address] [place] [address] H&P Exam - Hospitalist 03/05/25 1806 MR#: [id number] Acct: [id number] Name: JESSICA BARR Rep #:[id number] : 2005 19 From: Felecia Roland MD PCP: ALEJANDRO Brown Status:AD M IN [place] [facility] [place] HPI - General General Date of Admission: 03/05/25 Date of Service: 03/05/25 Chief Complaint: Right testicular pain HPI Narrative JESSICA BARR, is a 19-year-old male presented [facility] 03/05/2025 with continued right testicular pain and swelling that has been going on for 1 week. Seen in the ED the day prior and had testicular ultrasound whichshowed complex vascular mass. Dr. Van reviewed it and thought it was testicular cancer and patient was discharged with plans for outpatient follow-up. Since yesterday he has been active and moving things around but this morning he woke up with increased pain and swelling of the testicle. Ultrasoundredemonstrates the complex vascular mass in the right testicle and there is blood flow per radiologist to discussed with ED provider. ED spoke with Dr. Van who recommended he be admitted to medicine service, n.p.o. at midnight, and he will do surgery to remove the mass tomorrow. Hospitalist contacted for admission. In the ED patient afebrile, heart rate 73 with blood pressure 117/80, respiratory rate 19 and pulse ox 99% on room air. Labs completed the day prior and UA were benign. Patient evaluated at bedside. He reports he saidthe right sided testicular pain for the past week, is feeling little bit better now with the medications he received in the ED but notes the pain is starting tocome back some, no fevers or chills, does smoke about a pack a day, has been very active, intermittently will get tingling in the tips of the first 3 fingerson his left hand and sometimes he will feel little bit weak in that area, presently only little bit of tingling in the tip of his middle finger without any weakness. Reports sometimes he gets difficulty urinating when the pain in his testicles severe, no abdominal pain or diarrhea PFSH Medical History Depression Anxiety Home Medications ?Medication ?Instructions ?Recorded ?Last Taken ?Type hydrocodone-acetaminophen 5-325mg 1 tab PO Q6H PRN PRN Pain 3 days 03/05/25 Unknown Rx 5mg-325mg #12 TABLETS ondansetron 4 mg disintegrating 4 mg PO Q6H PRN nausea and 03/05/25 Unknown Rx tablet vomiting #12 tabs Allergy/AdvReac Type Severity Reaction Status Date / Time No Known Allergies Allergy Verified 03/05/25 14:35 Surgical History Status post open reduction and internal fixation (ORIF) of fracture Social History Smoking Status: Current every day smoker tobacco type: cigarettes and e- cigarettes alcohol intake: current alcohol intake frequency: a few times a month substance use type: marijuana ROS ROS Narrative General: Denies fever/chills HENT: Denies headache, denies stuffy nose, denies sore throat EYES: Denies changes in vision Resp: Denies cough, denies shortness of breath Cardiac: Denies chest pain GI: Denies abdominal pain, denies changes in bowel, denies nausea/vomiting : Right-sided scrotal pain, sometimes difficulty in urinating when the pain issevere Extremity: Denies swelling MSK: Denies weakness Neuro: Gets some tingling intermittently in the tips of his fingers on the left hand, first 3 fingers specifically Heme: Denies any bleeding or bruising Skin: Denies rashes Psychiatric: No complaints voiced Vital Signs Vital Signs Vital Signs: 03/05/25 14:33 03/05/25 17:27 Temperature 98.3 F 97.9 F Temperature Source Oral Pulse Rate 73 52 L Respiratory Rate 19 H 18 Blood Pressure 117/80 124/69 H Blood Pressure Mean 92 87 Pulse Ox 99 100 Weight Weight: 88.451 kg Body Mass Index (BMI) 28.8 Physical Exam Narrative General: Alert, oriented, no apparent distress HEENT: Atraumatic, normocephalic Eyes: Anicteric, normal conjunctiva, extraocular movements grossly intact Neck: Supple Respiratory: Clear to auscultation bilaterally, normal respiratory effort Cardiovascular: Regular rate and rhythm GI: Soft, nontender, nondistended : Does have some pain on palpation of right testicle, right testicle is also elevated compared to left, no left-sided changes or pain Extremities: No edema Musculoskeletal: Moving all extremities Neuro: No overt focal neurological deficits Skin: No rashes appreciated Psych: Cooperative Results Lab / Micro Data 03/05/25 18:00 03/05/25 18:00 Imaging Radiology Impression Testicular Ultrasound 03/05/25 14:55 IMPRESSION: 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 Additional differential within the right testicle is torsion. Small hydrocele within the right. Reading Location: [facility] Assessment & Plan Assessment/Plan (1) Mass of right testicle: (2) Pain in right testicle: PLAN: Plan # Pain in right testicle -Ultrasound with complex vascular mass -Per ED note radiologist reported blood flow -Given patient came back to the ED with continued pain Dr. Van recontacted and will take patient to surgery tomorrow -He recommended admitting to medicine and keep patient n.p.o. at midnight -Supportive care #Tobacco use -Advise cessation -Nicotine replacement available if desired #DVT ppx: SCDs Felecia Roland MD Charges/Coding Visit Charges Inpatient E&M: 51905 Init Hosp L1 03/05/251811 <Electronically signed by Felecia Roland MD> Cosigner Signature (if applicable): CC: ALEJANDRO Mosher; Dr. Felecia Roland MD~ Signed [facility] Work Phone: 1(597) 684-238806-29-2025 Evaluation note* Diagnosis Onset Date Resolution Status Admit Date Mass of right testicle acute [facility] ne 2024 6:06pm Pain in right testicle acute ne 2024 6:06pm Physical exam, routine acute [facility] 2024 6:06pm [facility] Work Phone: 1(246) 171-888306-29-2025 Evaluation note* Diagnosis Onset Date Resolution Status Admit Date Physical exam, routine acute [facility] 2024 6:06pm Mass of right testicle resolved [facility] 2024 6:06pm Pain in right testicle inactive [facility] 2024 6:06pm Non-seminomatous testicular cancer acute March 27, 2025 1:49pm [facility] Work Phone: 1([phone]) 117-364506-29-2025 Evaluation note* Diagnosis Onset Date Resolution Status Admit Date Physical exam, routine acute [facility] 2024 6:06pm Mass of right testicle resolved [facility] 2024 6:06pm Pain in right testicle inactive [facility] 2024 6:06pm Non-seminomatous testicular cancer acute March 27, 2025 1:49pm Confusion acute April 04 2:06pm Non-seminomatous testicular cancer acute April 04, 2025 2:06pm Lung nodules chronic April 04, 2 025 2:06pm [facility] Work Phone: 1(422) 565-951806-29-2025 Evaluation note* Diagnosis Onset Date Resolution Status Admit Date Physical exam, routine acute [facility] 2024 6:06pm Mass of right testicle resolved [facility] 2024 6:06pm Pain in right testicle inactive [facility] 2024 6:06pm Non-seminomatous testicular cancer acute March 27, 2025 1:49pm Confusion acute April 04 2:06pm Non-seminomatous testicular cancer acute April 04, 2025 2:06pm Lung nodules chronic April 04, 2 025 2:06pm Confusion acute April 11 1:38pm Non-seminomatous testicular cancer acute April 11, 2025 1:38pm Lung nodules chronic April 11, 2025 1:38pm [facility] Work Phone: [phone]) 757-973706-29-2025 Discharge summary [facility] Medical Records Department [address] [place] [address] Emergency Department Summary 03/05/25 MR#: [id number] Acct: [id number] Name: JESSICA BARR Rep #:[id number] : 2005 19 From: Batsheva KIRBY PCP: ALEJANDRO Brown Status:AD M IN Location: [place] [address]-1 Patient was seen and examined with physician magistrate assistant Batsheva All components of the history and physical confirmed and agreed. History of present illness and physical exam: Patient 19-year-old male with no known significant past medical history who presents to the emergency department with a chief complaint of right testicular pain. Once again I saw this patient yesterday and he states that this has been going on for at least a week if not longer. 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 He states that he has been taking a lot of ibuprofen this morning to try to control the pain this was nothelping. Review of systems: Agree with above Physical exam: Agree with above will add on the genitourinary exam as this was performed by myself which she does have tenderness palpation of the right testicle however the testicle is in the normallie no concern Jennifer's gangrene, no urethral discharge no inguinal hernias noted no tenderness pa lpation in the left testicle no overlying skin changes no rashes or lesions MDM patient is a 19-year-old male who presents to the emergency department chief complaint of right testicular pain. Once again he was evaluated yesterday here by myself and he came back with what he describes worsening pain and swelling. On the differential diagnose includes Melamin to testicular cancer as there is amass noted yesterday, torsion, UTI, orchitis, epididymitis. Repeat ultrasound will be performed. Repeat ultrasound was performed and showed a complex vascular mass within the right testicle measuring 3.3 x 2.6 x 2.4 cm which is grossly stable in size. Small hydrocele within the right. We reached out to on-call urologist Dr. Van who originally states that the patient go home with pain control and follow-up in the office tomorrow morning however he did call back and noted that hewould like the patient admitted and will plan for surgery tomorrow. Patient is agreeable this plan as well. Patient's case was discussed with hospitalist Dr. Roland who accept patient for admission. Final impression: Right testicular mass Right testicular pain Disposition: Patient will be admitted to the hospital Supervising attending attestation: Kobe FISHER History of Present Illness Chief Complaint: Male Pain/Injury Narrative Narrative: 19-year-old male with no past medical history has had 1 week of right testicularpain and swelling. He was seen here yesterday and had a testicular ultrasound with a complex vascular mass. Dr. Van reviewed it and thought this was testicular cancer. 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 He is taking ibuprofen. No direct trauma. No urinary symptoms. No fever or chills. PFSH PFSH Medical History Depression Anxiety Home Medications ?Medication ?Instructions ?Recorded ?Last Taken ?Type gabapentin 100 mg capsule 100 mg PO TID 03/05/25 Unkno wn History hydrocodone-acetaminophen 5-325mg 1 tab PO Q6H PRN PRN Pain 3 days 03/05/25 Unknown Rx 5mg-325mg #12 TABLETS ondansetron 4 mg disintegrating 4 mg PO Q6H PRN nausea and 03/05/25 Unknown Rx tablet vomiting #12 tabs Allergy/AdvReac Type Severity Reaction Status Date / Time No Known Allergies Allergy Verified 03/05/25 14:35 Surgical History Status post open reduction and internal fixation (ORIF) of fracture Social History Smoking Status: Current every day smoker tobacco type: cigarettes and e-cigarettes alcohol intake: current alcohol intake frequency: a few times a month substance use type: marijuana ROS ROS ED ROS Narrative Constitutional: Negative for fever, chills, malaise. GI: Negative for abdominal pain, nausea, vomiting. : Negative for dysuria, hematuria or frequency. EXAM Physical Exam Narrative Exam Narrative: CONST: Patient sitting in no acute distress. EYES: Normal inspection. NECK: Normal inspection. RESP: No respiratory distress, CTAB. CVS: Regular rate and rhythm, no murmur, no gallop. ABD: Soft and nontender, no guarding or rebound, nondistended. : Right testicle swollen similar to yesterday's exam, normal testicular lie. SKIN: Color normal, no rash, warm, dry, intact. EXTREMITIES: Normal appearance, no pedal edema. NEURO: Alert and answering questions appropriately. PSYCH: Normal affect. Const Vital Signs: 03/05/25 14:33 03/05/25 17:27 Temperature 98.3 F 98.3 F Temperature Source Oral Pulse Rate 73 73 Respiratory Rate 19 H 19 H Blood Pressure 117/80 110/80 Blood Pressure Mean 92 90 Pulse Ox 99 99 MDM MDM MDM Narrative Medical decision making narrative: Consults: Urology, medicine Differential: Mass, torsion 19-year-old male has had right scrotal pain x 1 week. Yesterday in the ED a testicular ultrasound showed a complex vascular mass which urology thought was testicular cancer. Today he feels the right testicular pain and swelling is worse after he was more active yesterday. He appears well and nontoxic. Vital stable. Abdomen soft, nontender. Dr. Pisano did the testicular exam and statesthe amount of swelling is the same or improved from yesterday. Ultrasound showsa stable complex vascular mass inthe right testicle. The radiologist called and said there is blood flow. I spoke with Dr. Van who states if he is having significant pain he can be admitted to the medicine service, n.p.o. at midnight, and he will do surgery to remove the mass tomorrow. Radiography Diagnostic Testing: Clinical Impression(s) from Imaging Studies Testicular Ultrasound 03/05/25 14:55 IMPRESSION: 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 Additional differential within the right testicle is torsion. Small hydrocele within the right. Reading Location: [id number] Discharge Plan Triage Chief Complaint: Male Pain/Injury ED Midlevel Provider: Batsheva García ED Provider: Kobe Pisano Dx/Rx/DC Orders Clinical Impression: Pain in right testicle, Mass of right testicle Prescriptions: New hydrocodone-acetaminophen 5-325 mg tablet 1 tab PO Q6H PRN PRN (Reason: Pain) 3 Days Qty: 12 0RF ondansetron 4 mg tablet,disintegrating 4 mg PO Q6H PRN (Reason: nausea and vomiting) Qty: 12 0RF No Action gabapentin 100 mg capsule 100 mg PO TID Stand Alone Forms: ED Work / School Excuse Primary Care Provider: Mitali Mosher NP Referrals: Feliz Van MD [Med Staff - Active Staff] - Mitali Mosher NP, [employer] DIRECTOR-C [Primary Care Provider] - Activity Restrictions/Additional Instructions: The ultrasound shows no significant changes from yesterday. The mass is the same size. Call the urologist tomorrow to schedule an appointment. You can take ibuprofen 600 mg every 6 hours. Do not take it more frequently than this. I prescribed hydrocodone which can be taken every 6 hours. This medication can cause nausea, sedation, and constipation. I recommend you take a stool softenerlike MiraLAX or Dulcolax while using thismedicine. Print Language: Namibian Disposition Disposition: Home, Self Care Discharge Date/Time: 03/05/25 17:30 What to do if you have Problems For any increased pain, shortness of breath, bleeding, nausea or vomiting, chestpain, or any unexpected problems, contact your Primary Care Provider. Call [facility] ([phone]) or report tothe closest Emergency Room. Call 911 if necessary. 03/05/25 1750 Cosigner Signature (if applicable): 03/05/25 1815 CC: YANCY-C Mitali Mosher ~ Signed [facility]06-29-2025 History and physical note [facility] Medical Records Department [address] [place] [address] H&P Exam - Hospitalist 03/05/25 1806 MR#: [id number] Acct: [id number] Name: JESSICA BARR Rep #:[id number] : 2005 19 From: Felecia Roland MD PCP: ALEJANDRO Brown Status:AD M IN Location: NC3 AG215-5 HPI - General General Date of Admission: 03/05/25 Date of Service: 03/05/25 Chief Complaint: Right testicular pain HPI Narrative JESSICA TOMASSETTI, is a 19-year-old male presented [facility] 03/05/2025 with continued right testicular pain and swelling that has been going on for 1 week. Seen in the ED the day priorand had testicular ultrasound whichshowed complex vascular mass. Dr. Van reviewed it and thoughtit was testicular cancer and patient was discharged with plans for outpatient follow- up. Since yesterday he has been active and moving things around but this morning he woke up with increased pain and swelling of the testicle. Ultrasoundredemonstrates the complex vascular mass in the right testicleand there is blood flow per radiologist to discussed with ED provider. ED spoke with Dr. Van whorecommended he be admitted to medicine service, n.p.o. at midnight, and he will do surgery to remove the mass tomorrow. Hospitalist contacted for admission. In the ED patient afebrile, heart rate 73 with blood pressure 117/80, respiratory rate 19 and pulse ox 99% on room air. Labs completed the dayprior and UA were benign. Patient evaluated at bedside. He reports he saidthe right sided testicular pain for the past week, is feeling little bit better now with the medications he received in the ED but notes the pain is starting tocome back some, no fevers or chills, does smoke about a pack a day, has been very active, intermittently will get tingling in the tips of the first 3 fingerson his left hand and sometimes he will feel little bit weak in that area, presently only little bit of tingling in the tip of his middle finger without any weakness. Reports sometimes he gets difficulty urinating when the pain in his testicles severe, no abdominal pain or diarrhea PFSH Medical History Depression Anxiety Home Medications ?Medication ?Instructions ?Recorded ?Last Taken ?Type hydrocodone-acetaminophen 5-325mg 1 tab PO Q6H PRN PRN Pain 3 days 03/05/25 Unknown Rx 5mg-325mg #12 TABLETS ondansetron 4 mg disintegrating 4 mg PO Q6H PRN nausea and 03/05/25 Unknown Rx tablet vomiting #12 tabs Allergy/AdvReac Type Severity Reaction Status Date / Time No Known Allergies Allergy Verified 03/05/25 14:35 Surgical History Status post open reduction and internal fixation (ORIF) of fracture Social History Smoking Status: Current every day smoker tobacco type: cigarettes and e-cigarettes alcohol intake: current alcohol intake frequency: a few times a month substance use type: marijuana ROS ROS Narrative General: Denies fever/chills HENT: Denies headache, denies stuffy nose, denies sore throat EYES: Denies changes in vision Resp: Denies cough, denies shortness of breath Cardiac: Denies chest pain GI: Denies abdominal pain, denies changes in bowel, denies nausea/vomiting : Right-sided scrotal pain, sometimes difficulty in urinating when the pain issevere Extremity: Denies swelling MSK: Denies weakness Neuro: Gets some tingling intermittently in the tips of his fingers on the left hand, first 3 fingers specifically Heme: Denies any bleeding or bruising Skin: Denies rashes Psychiatric: No complaints voiced Vital Signs Vital Signs Vital Signs: 03/05/25 14:33 03/05/25 17:27 Temperature 98.3 F 97.9 F Temperature Source Oral Pulse Rate 73 52 L Respiratory Rate 19 H 18 Blood Pressure 117/80 124/69 H Blood Pressure Mean 92 87 Pulse Ox 99 100 Weight Weight: 88.451 kg Body Mass Index (BMI) 28.8 Physical Exam Narrative General: Alert, oriented, no apparent distress HEENT: Atraumatic, normocephalic Eyes: Anicteric, normal conjunctiva, extraocular movements grossly intact Neck: Supple Respiratory: Clear to auscultation bilaterally, normal respiratory effort Cardiovascular: Regular rate and rhythm GI: Soft, nontender, nondistended : Does have some pain on palpation of right testicle, right testicle is also elevated compared toleft, no left-sided changes or pain Extremities: No edema Musculoskeletal: Moving all extremities Neuro: No overt focal neurological deficits Skin: No rashes appreciated Psych: Cooperative Results Lab / Micro Data 03/05/25 18:00 03/05/25 18:00 Imaging Radiology Impression Testicular Ultrasound 03/05/25 14:55 IMPRESSION: 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 Additional differential within the right testicle is torsion. Small hydrocele within the right. Reading Location: [facility] Assessment & Plan Assessment/Plan (1) Mass of right testicle: (2) Pain in right testicle: PLAN: Plan # Pain in right testicle -Ultrasound with complex vascular mass -Per ED note radiologist reported blood flow -Given patient came back to the ED with continued pain Dr. Van recontacted and will take patientto surgery tomorrow -He recommended admitting to medicine and keep patient n.p.o. at midnight -Supportive care #Tobacco use -Advise cessation -Nicotine replacement available if desired #DVT ppx: SCDs Felecia Roland MD Charges/Coding Visit Charges Inpatient E&M: 90743 Init Hosp L1 03/05/25 1812 Cosigner Signature (if applicable): CC: ALEJANDRO Mosher; Dr. Felecia Roland MD~ Signed [facility]06-29-2025 Radiology Diagnostic study note [facility] Imaging Services [address] [place] [address] Testicular with Arterial Flow MR#: [id number] Acct: [id number] Name: JESSICA BARR Rep #: [id number] : 2005 M 19 From: Jaci Obrien MD PCP: ALEJANDRO Brown Status: RE G ER Study:Testicular with Arterial Flow Date of E xam: 03/05/25 Exam# [id number] Ordering Dr: Batsheva Markham ADDENDUM by Dr. Mauricio Obrien MD on 03/05/[address] Pisano was notified by Mauricio Obrien at 5:21 pm EST on 03/05/2025. Reading Location: [id number] 03/05/25 1724 Date cc: ALEJANDRO Mosher; KOFI [...] Small hydrocele within the right. Reading Location: [id number] CC: ALEJANDRO Mosher; KOFI Amato ~ Solvent Station Attendant: Signed [facility]06-28-2025 Hospital Discharge instructionsAdditional Instructions The ultrasound shows no significant changes [...] like MiraLAX or Dulcolax while using this medicine.[facility] Work Phone: 1(821) 957-655606-28-2025 Discharge summary [facility] Medical Records Department [address] [place] [address] Emergency Department Summary 03/04/25 MR#: [id number] Acct: [id number] Name: BLANCAANIBALJESSICA HARRISERY Rep #:[id number] : 2005 19 From: Kobe Pisano DO PCP: Mitali Mosher NP-C Status:RE G ER Location: ED HPI History of Present Illness Chief Complaint: Male Pain/Injury Narrative Narrative: Patient is a 19-year-old male with past medical history of anxiety, depression who presented to theemergency department the chief complaint of right testicular pain and swelling. He states that about 2 weeks ago he noted that hehad right testicular discomfort and noted within the last week that hehas had noted increase in size of the [...] follow commands knew that he was at [facility] year is 2024 Skin: Warm, dry, [...] ultrasound reviewed showed a complex vascular mass withinthe right testicle measuring 3.2 x 3.0 x [...] on Thursday. He is advised that if theycannot gethim in he needs to see a another urologist immediately he [facility]. He is agreeable this plan all question [...] 73.9 H Lymph % (Auto) 13.7 L Erath % (Auto) 9.8 Eos % (Auto) 1.7 [...] Clarity Clear Urine pH 8.0 Ur Specific Clifton 1.015 Urine Protein 15 H Urine Glucose [...] testicular torsion. Small right-sided hydrocele. Reading Location: [facility] Discharge Plan Triage Chief Complaint: Male Pain/Injury ED Provider: Kobe Pisano Dx/Rx/DC Orders Clinical Impression: Pain in right testicle, Mass of right testicle Prescriptions: No Action sertraline [Zoloft] 25 mg tablet 25 mg PO QHS Qty: 30 0RF Primary Care Provider: Mitali Mosher NP Referrals: Mitali Mosher NP, SUMMER SESSIONS DIRECTOR-C [Primary Care Provider] - Feliz Van MD [...] urologist immediately. You can also follow-up with [facility] in [place] number is [phone]. Rotate Tylenol and ibuprofen htaqnu-htm-mhcqi for pain control when you do this you can take something every 3 hours max dose of Tylenol in 24 hours 4000 mg maxdose of ibuprofen in 24 hours 3200 mg. Print Language: Namibian Disposition Disposition: Home, Self Care What to do if you have Problems For any increased pain, shortness of breath, bleeding, nausea or vomiting, chestpain, or any unexpected problems, contact your Primary Care Provider. Call [facility] ([phone]) or report tothe closest Emergency Room. Call 911 if necessary. 03/04/25 1526 Cosigner Signature (if applicable): CC: SUMMER SESSIONS DIRECTOR-C Mitali Mosher ~ Signed [facility]06-28-2025 Radiology Diagnostic study note [facility] Imaging Services [address], [place] [address] Testicular with Arterial Flow MR#: [id number] Acct: [id number] Name: JESSICA BARR Rep #: [id number] : 2005 M 19 From: Jaci Obrien MD PCP: ALEJANDRO Brown Status: RE G ER Study:Testicular with Arterial Flow Date of E xam: 03/04/25 Exam# [id number] Ordering Dr: Luciano Pisano DO PROCEDURE: TESTICULAR [...] testicular torsion. Small right-sided hydrocele. Reading Location: [id number] CC: ALEJANDRO Mosher; Dr. Kobe Pisano DO ~ Solvent Station Attendant: Signed [facility]06-28-2025 Discharge summary Author Kobe Pisano [facility] Note Date/Time March 04, 2025 3:26 pm [facility] Medical Records Department [address] [place] [address] Emergency Department Summary 03/04/25 MR#: [id number] Acct: [id number] Name: JESSICA BARR Rep #:[id number] : 2005 19 From: Kobe Pisano DO [...] follow commands knew that he was at [facility] year is 2024 Skin: Warm, dry, [...] 73.9 H Lymph % (Auto) 13.7 L Erath % (Auto) 9.8 Eos % (Auto) 1.7 [...] Clarity Clear Urine pH 8.0 Ur Specific Clifton 1.015 Urine Protein 15 H Urine Glucose [...] testicular torsion. Small right-sided hydrocele. Reading Location: [facility] Discharge Plan Triage Chief Complaint: Male Pain/Injury ED Provider: Kobe Pisano Dx/Rx/DC Orders Clinical Impression: Pain in right testicle, Mass of right testicle Prescriptions: No Action sertraline [Zoloft] 25 mg tablet 25 mg PO QHS Qty: 30 0RF Primary Care Provider: Mitali Mosher NP Referrals: Mitali Mosher NP, SUMMER SESSIONS DIRECTOR-C [Primary Care Provider] - Feliz Van MD [...] urologist immediately. You can also follow-up with [facility] in [place] number is [phone]. Rotate Tylenol and ibuprofen udpvvr-ihi-tfmyx for pain control when you do this you can take something every 3 hours max dose of Tylenol in 24 hours 4000 mg maxdose of ibuprofen in 24 hours 3200 mg. Print Language: Namibian Disposition Disposition: Home, Self Care What to do if you have Problems For any increased pain, shortness of breath, bleeding, nausea or vomiting, chestpain, or any unexpected problems, contact your Primary Care Provider. Call [facility] ([phone]) or report to the closest Emergency Room. Call 911 if necessary. 03/04/25 1526 <Electronically signed by Kobe Pisano DO> Steven Signature (if applicable): CC: ALEJANDRO Mosher ~ Signed [facility] Work Phone: 1(539) 281-700406-28-2025 Hospital Discharge instructionsAdditional Instructions You need to call Dr. Van office immediately Thursday as there is a high concern that you have testicular cancer as there is a mass in your right testicle. If they are unable to see you secondary to insurance reasons or any other reason you need to follow-up with a another urologist immediately. You can also follow-up with [facility] in [place] number is [phone]. Rotate Tylenol and ibuprofen ajmccz-ysf-htypr for pain control when you do this you can take something every 3 hours max dose of Tylenol in 24 hours 4000 mg max dose of ibuprofen in 24 hours 3200 mg.[facility] Work Phone: 1(505) 880-527106-19-2025 Hospital Discharge instructions Patient Education 02/23/2025 05:59:15 [...] wound Decreased movement around the injured area [phone] [employer]. [address] [place] [address]. All rights reserved. This information is not intended as a substitute for professional medical care. Always follow yourhealthcare professional's instructions. Follow Up Care 02/23/2025 05:50:31 With:MITALI MOSHER Address: [address] [place] [address] [phone] When:2-4 days [facility] 06-19-2025 Note Discharge Instructions Thank you for allowing [facility] to assist you with your healthcare needs. [...] Up with MITALI MOSHER When:Within 2-4 days Where:[address] [place] [phone] Allergies NKA Medications Please ask your primary [...] wound Decreased movement around the injured area [phone] [employer]. [address] [place] [address], [place] [address]. All rights reserved. This information is not intended as a substitute for professional medical care. Always follow yourhealthcare professional's instructions. Additional Information VACCINATE! IT SAVES LIVES! Members of the community who have not yet received the COVID-19 vaccine and would like to receive it can visit one of [facility] vaccine clinics. There are many vaccine clinic locations within the [facility]. For locations and available times, please visit www.gettheshot.coronavirus.[place].gov/. It is important to note that some COVID mobile vaccine clinics are held outdoors and may be canceled in rainy or stormy conditions. To learn more about pediatric vaccinations (ages 5-11), we invite you to visit the [facility] webpage. https://www.Exchangerys.org/pages/5497-Fgeut-Lotkojfxqme-Trgmdvznkw-Vkreg-Uen stions.htmlTo learn more about the COVID-19 vaccine, we invite you to visit the CDC website for a list of frequently asked questions. https://www.cdc.gov/coronavirus/2019-ncov/vaccines/faq.html [email or web address] Patient Portal Access Instructions: Stay connected with your healthcare team and access your personal medical information anytime with the [facility] Patient Portal. If you would like a full copy of your medical records please contact the [facility] Medical Records Department Thursday through Thursday between 8a.m. and 4:30p.m. Please follow the directions below to access the portal: 1.Access the email account you provided upon registration to the hospital.2.Look for an invitation email from [facility].3.Open the email and access the invitation link: Accept Invitation to [facility]4.Fill in the required momin to create your account. Sign into [email or web address].[email or web address] Effect with your username and password that you [...] you will allow to register on the [employer] Patient Portal for access to your information. You can also access the [employer] Patient Portal on the [employer] sammy. Simply click on Health Records under [place] and then click on the NoFlo logo. HOW TO SAFELY DISPOSE OF PRESCRIPTION [...] Call your local pharmacy or go to [email or web address] to find one close to you.3.Make use of household items: Use cat litter or old coffee grounds to dispose medications if other options arenot available. Mix your drugs with these household products, seal them in an airtight container andthrow it into the garbage. Call [facility]: [phone] to be sure your drugs can be [...] aware that I should contact my doctor. Patient/International Coordinator Signature: Date/Time: Relationship to Patient: Witness Name/Signature: Date/Time: [facility]06-09-2025 Telephone encounter Note* Telephone Encounter - Aura Mendosa - 02/13/2025 2:07 PM EDT Left message to schedule appointment [facility]06-09-2025 Miscellaneous Notes* Telephone Encounter - Aura [...] which facility was the patient seen at: [facility] bath Was an appointment scheduled (Y/N): N Person calling if other than patient: N Return call to if other than patient: N Best contact number: [phone] Thank you, Mario Kay February 08, 2025 10:20 AM [facility] Hospital Discharge instructions Patient Education 02/08/2025 [...] bent back when typing. You may use awnx-dlk-nxkzdua pain medicine to treat pain and inflammation, [...] Your whole arm becomes swollen or weak [phone] [employer]. [address] [place] [address]. All rights reserved. This information is not intended as a substitute for professional medical care. Always follow yourhealthcare professional's instructions. Follow Up Care 02/08/2025 16:26:34 With:LUL CHICAS DO, [facility] Address: [address] [facility] [facility] [facility] [place] [address]- [phone] When:2-4 days With:AMILCAR CASON DO, [facility] Address: [address] [facility], [place] [address] [phone] When:2-4 days With:ROSEMARIE ZIMMERMAN DO Orthopedic Address: [address] [place] [address] [phone] When:2-4 days With:JUSTO FLORES DO Orthopedic Address: [address] [place] [address] [phone] When:2-4 days [facility] 06-04-2025 Note Discharge Instructions Thank you for allowing [facility] to assist you with your healthcare needs. [...] Appointments Follow Up with LUL CHICAS DO [facility] When:Within 2-4 days Where:[address] [facility] [address] [facility] [place] [address] [phone] Follow Up with AMILCAR CASON DO, Orthopedic When:Within 2-4 days Where:[address] [facility], [place] [address]- [phone] Follow Up with ROSEMARIE ZIMMERMAN DO Orthopedic When:Within 2-4 days Where:[address] [place] [place] [address]- [phone] Follow Up with JUSTO FLORES DO Orthopedic When:Within 2-4 days Where:[address] [place] [address] [address] [place] [address]- [phone] Allergies NKA Medications Please ask your primary [...] are a day sleeper or work a car shifter; or kidney disease (or if you are [...] may report side effects to FDA at 7-575-ZHJ-2373. What other drugs will affect gabapentin? Taking [...] may affect gabapentin. This includes prescription and ylpp-hba-uxcjzql medicines, vitamins, and herbal products. Not all [...] to ensure that the information provided by [employer]. ('Multum') is accurate, up-to-date, and complete, but no guarantee is made to that effect. Drug information contained herein may be time sensitive. BringMeThat information has been compiled for use by healthcare practitioners and consumers in the [place] and therefore BringMeThat does not warrant that uses outside of the [place] are appropriate, unless specifically indicated otherwise. [employer] drug information does not endorse drugs, diagnose patients or recommend therapy. V[employer] drug information isan informational resource designed to [...] effective or appropriate for any given patient. [facility] does not assume any responsibility for any aspect of healthcare administered with the aid of information [facility] provides. The information contained herein is not intended to cover all possible uses, directions, precautions, warnings, drug interactions, allergic reactions, or adverse effects. If you have questions about the drugs you are taking, check with your doctor, nurse or pharmacist. Copyright 9566-9826 [facility] UEIS. Version: 18.. Revision Date: 03/09/2023. methylprednisolone (oral) [...] expected to produce life threatening symptoms. However, marine oil terminal superintendent use of high steroid doses can lead [...] may report side effects to FDA at 6-792-FBM-9357. What other drugs will affect methylprednisolone? Other drugs may interact with methylprednisolone, including prescription and ydfp-bbe-tkdkesz medicines, vitamins, and herbal products. Tell each [...] to ensure that the information provided by [employer]') is accurate, up-to-date, and complete, but no guarantee is made to that effect. Drug information contained herein may be time sensitive. BringMeThat information has been compiled for use by healthcare practitioners and consumers in the [place] and therefore BringMeThat does not warrant that uses outside of the [place] are appropriate, unless specifically indicated otherwise. [employer] drug information does not endorse drugs, diagnose patients or recommend therapy. [employer] drug information isan informational resource designed to [...] effective or appropriate for any given patient. [employer] does not assume any responsibility for any aspect of healthcare administered with the aid of information [employer]MeThat provides. The information contained herein is not intended to cover all possible uses, directions, precautions, warnings, drug interactions, allergic reactions, or adverse effects. If you have questions about the drugs you are taking, check with your doctor, nurse or pharmacist. Copyright 0202-4545 [employer]. Version: 9.01. Revision Date: 05/06/2017. Education Materials [...] bent back when typing. You may use rkks-chb-mwikfph pain medicine to treat pain and inflammation, [...] Your whole arm becomes swollen or weak 9020-6515 [employer]. [address] [place] [address], [place] [address]. All rights reserved. This information is not intended as a substitute for professional medical care. Always follow yourhealthcare professional's instructions. Additional Information VACCINATE! IT SAVES LIVES! Members of the community who have not yet received the COVID-19 vaccine and would like to receive it can visit one of [facility] vaccine clinics. There are many vaccine clinic locations within the [facility]. For locations and available times, please visit www.gettheshot.coronavirus.[place].gov/. It is important to note that some COVID mobile vaccine clinics are held outdoors and may be canceled in rainy or stormy conditions. To learn more about pediatric vaccinations (ages 5-11), we invite you to visit the [facility] webpage. https://www.[facility].org/pages/0011-Wpdfy-Lmlpugbdkka-Hgtzafbnkz-Vnuyh-Zhz stions.htmlTo learn more about the COVID-19 vaccine, we invite you to visit the CDC website for a list of frequently asked questions. https://www.cdc.gov/coronavirus/2019-ncov/vaccines/faq.html [email or web address] Patient Portal Access Instructions: Stay connected with your healthcare team and access your personal medical information anytime with the [facility] Patient Portal. If you would like a full copy of your medical records please contact the [facility] Medical Records Department Thursday through Thursday between 8a.m. and 4:30p.m. Please follow the directions below to access the portal: 1.Access the email account [facility].2.Look for an invitation email from [facility].3.Open the email and access the invitation link: Accept Invitation to [email or web address]4.Fill in the required momin to create your account. Sign into www.Lazarus Effect with your username and password that you [...] you will allow to register on the [facility] Patient Portal for access to your information. You can also access the [facility] Patient Portal on the [employer] sammy. Simply click on Health Records under HealthData and then click on the NoFlo logo. HOW TO SAFELY DISPOSE OF PRESCRIPTION [...] Call your local pharmacy or go to http://[email or web address].Isto [email or web address] to find one close to you.3.Make use of household items: Use cat litter or old coffee grounds to dispose medications if other options arenot available. Mix your drugs with these household products, seal them in an airtight container andthrow it into the garbage. Call [facility]: [phone] to be sure your drugs can be [...] aware that I should contact my doctor. Patient/International Coordinator Signature: Date/Time: Relationship to Patient: Witness Name/Signature: Date/Time: [facility]06-04-2025 Telephone encounter Note* Telephone Encounter - Jose [place] Alden Mcguirete Irina - 02/08/2025 2:23 PM EDT ----- Message [...] which facility was the patient seen at: [facility] bath Was an appointment scheduled (Y/N): N Person calling if other than patient: N Return call to if other than patient: N Best contact number: [phone] Thank you, Mario Kay February 08, 2025 10:20 AM [facility]05-25-2025 Discharge summary [facility] Medical Records Department [address] [place] [address] Emergency Department Summary 01/29/25 MR#: [id number] Acct: [id number] Name: JESSICA BARR Rep #:[id number] : 2005 19 From: Lupillo Alvarado MD [...] Prior similar symptoms: No Recent Illness/Hospitalization: [facility] Medical History Depression Anxiety Home Medications [...] oriented x3 and CN's II-XII intact bilaterally Tullos Coma Scale: document GCS findings Spontaneous Obeys [...] Referrals: Counseling,Center [Group of Physicians] - Keep Myrna appointment Mitali Mosher NP, SUMMER SESSIONS DIRECTOR-C [Primary Care Provider] - 1-2 Weeks Activity Restrictions/Additional Instructions: 1. Your blood pressure readings are elevated. Should have this rechecked by your provider YANCY Almazan. 2. Take 1 Zoloft tablet at bedtime. 3. Make/keep appointment at counseling center Print Language: Namibian Disposition Disposition: Home, Self Care What to do if you have Problems For any increased pain, shortness of breath, bleeding, nausea or vomiting, chestpain, or any unexpected problems, contact your Primary Care Provider. Call [facility] ([phone]) or report tothe closest Emergency Room. Call 911 if necessary. 01/29/25 0575 Cosigner Signature (if applicable): CC: ALEJANDRO Mosher ~ Signed [facility]02-11-2025 Telephone encounter Note* Telephone Encounter - [...] as a reminder for [facility]IONAL repeat imaging. [id number] Miscellaneous Notes* Telephone Encounter - Fabiola Arshad [...] for OPTIONAL repeat imaging. documented in this [facility]12-05-2024 Note ORIGINAL EXAMINATION: THREE XRAY VIEWS [...] Sign Date: 08/11/2024 3:52:26 PM Ordering Provider: [facility]09-26-2024 Note [facility] Medical Records Department [address] [place] [address] Discharge Summary 06/02/24 1442 MR#: [id number] Acct: [id number] Name: JESSICA BARR Rep #: [id number] : 2005 19 From: Yvette Nieto DO PCP: Care Physician,No Primary Status:[facility] Prov[facility] Date of Admission: 05/30/24 Date of [...] soft to palpation and (more content not included)...[facility]09-23-2024 Note [facility] Medical Records Department [address] [place] [address] Consultation 05/30/24 1526 MR#: [id number] Acct: [id number] Name: JESSICA BARR Rep #: [id number] : 2005 19 From: Yuriy Ding MD [...] M who presents with a pharyngeal abscess. Erath positive, progressively worsening sore throat; placed on [...] 90.2 H, Lymph % (Auto) 3.9 L, Erath % (Auto) 4.5, Eos % (Auto) 0.0, [...] Felix MD at 14:23 EDT , 05/30/24 1534 Cosigner Signature (if applicable): CC: No [facility] Instructions* Patient Instructions* Ivonne Cooper APRN.RETAIL EVENT AND SALES ASSISTANT - 05/13/2024 12:37 PM EDT ASSESSMENT/PLAN: 1. [...] Discussed expected course of illness Ivonne Cooper APRN.RETAIL EVENT AND SALES ASSISTANT Treatment for Viral Upper Respiratory Tract Infections [...] fluids help open respiratory and sinus passages [place] [facility] [place] may offer relief of nasal and head [...] worse rather than better [facility] NoteHNO ID: [id number] Author: IVONNE COOPER APRN.RETAIL EVENT AND SALES ASSISTANT Service: ? Author Type: Nurse Practitioner Type: [...] Maternal Grandmother Coronary Artery Disease Maternal Grandfather MS Coronary Artery Disease Paternal Grandfather MS Breast Cancer Other Social History Tobacco Use [...] Discussed expected course of illness [facility] of Present illness Narrative* Ivonne Cooper APRN.RETAIL EVENT AND SALES ASSISTANT - 05/13/2024 12:34 PM EDT Subjective Fever [...] Maternal Grandmother Coronary Artery Disease Maternal Grandfather MS Coronary Artery Disease Paternal Grandfather MS Breast Cancer Other Social History Tobacco Use [...] illness Ivonne Cooper APRN.BENNY [facility]2024 NoteHNO ID: [id number] Author: LUL BROWN APRN.BENNY Service: ? Author [...] Maternal Grandmother Coronary Artery Disease Maternal Grandfather MS Coronary Artery Disease Paternal Grandfather MS Breast Cancer Other Social History Tobacco Use [...] of care. This note was generated using ToVieFor software. It may contain errors in wording, punctuation, or spelling. Lul Brown APRN.[facility]08-20-2024 History of Present illness Narrative* Lul Brown APRN.RETAIL EVENT AND SALES ASSISTANT - 04/26/2024 2:03 PM EDT Subjective HPI [...] Maternal Grandmother Coronary Artery Disease Maternal Grandfather MS Coronary Artery Disease Paternal Grandfather MS Breast Cancer Other Social History Tobacco Use [...] of care. This note was generated using ToVieFor software. It may contain errors in wording, punctuation, or spelling. Lul Brown APRN.RETAIL EVENT AND SALES ASSISTANT documented [facility]-2024 NoteHNO ID: [id number] Author: LAVERNE ZAMBRANO APRN.RETAIL EVENT AND SALES ASSISTANT Service: ? Author Type: Nurse Practitioner Type: [...] Maternal Grandmother Coronary Artery Disease Maternal Grandfather MS Coronary Artery Disease Paternal Grandfather MS Breast Cancer Other Social History Tobacco Use [...] HENT: Head: Normocephalic and atraumatic. Mouth/Throat: Lips: [place]. Mouth: Mucous membranes are moist. Pharynx: Uvula [...] - STREP A MOLECULAR (POC) Laverne Zambrano APRN.[facility]07-12-2024 History of Present illness Narrative* [...] Maternal Grandmother Coronary Artery Disease Maternal Grandfather MS Coronary Artery Disease Paternal Grandfather MS Breast Cancer Other Social History Tobacco Use [...] HENT: Head: Normocephalic and atraumatic. Mouth/Throat: Lips: [place]. Mouth: Mucous membranes are moist. Pharynx: Uvula [...] (POC) Laverne Zambrano APRN.CNP [facility] History of Present illness Narrative* John [...] PATIENT PRESENTS WITH AN IMPLANTABLE OR ATTACHED AFRICANA STUDIES PROFESSOR: No RADIOLOGY DEPARTMENT: General X-ray: Exam(s) Completed: Chest X-Ray PERIPHERAL IV DATA: Not applicable SIGNED BY: RT Mary Ann(R) March 18, 2024 1:20 PM documented in this encounterCh[facility]07-12-2024 NoteHNO ID: [id number] Author: JOHN DAVIS RT([place]) Service: Radiology Author Type: Technologist Type: Progress [...] PATIENT PRESENTS WITH AN IMPLANTABLE OR ATTACHED AFRICANA STUDIES PROFESSOR: No RADIOLOGY DEPARTMENT: General X-ray: Exam(s) Completed: Chest X-Ray PERIPHERAL IV DATA: Not applicable SIGNED BY: John Davis, RT(R) March 18, 2024 1:20 [facility]06-27-2024 NoteHNO ID: [id number] Author: PRAKASH ZHAO MD Service: ? Author Type: Physician Type: Progress Notes Filed: 03/03/2024 15:38 Note Text: This note was created using Medico.comriter. Subjective Jessica Barr is a 18 year [...] on risks of binge consumption. Prakash Zhao [facility]06-27-2024 History of Present illness Narrative* Prakash Zhao MD - 03/03/2024 2:48 PM EDT This note was created using Medico.comriter. Subjective Jessica Barr is a 18 year [...] consumption. Prakash Zhao MD documented in [facility]Ch[facility]06-[facility]-2024 NoteHNO ID: [id number] Author: MIRIAM WATSON PA-C Service: ? Author Type: Physician Hall Supervisor Type: Progress Notes Filed: 02/29/2024 12:41 Note [...] Maternal Grandmother Coronary Artery Disease Maternal Grandfather MS Coronary Artery Disease Paternal Grandfather MS Breast Cancer Other Social History Tobacco Use [...] symptoms - STREP A MOLECULAR (POC) [facility]06-24-2024 History of Present illness Narrative* Miriam Watson [...] Maternal Grandmother Coronary Artery Disease Maternal Grandfather MS Coronary Artery Disease Paternal Grandfather MS Breast Cancer Other Social History Tobacco Use [...] (POC) Miriam Watson PA-C [facility]Ch[facility]06-[facility]24 Instructions* Patient Instructions* Miriam Watson PA-C - 02/29/2024 11:[address] Zhao follow up for smoking cessation Dayquil/Nyquil otc for cold symptoms If not better jean paul linares again documented in this encounterCh[facility]ic[facility] Hospital05-24-2024 NoteHNO ID: [id number] Author: IVONNE COOPER APRN.RETAIL EVENT AND SALES ASSISTANT Service: ? Author Type: Nurse Practitioner Type: [...] Maternal Grandmother Coronary Artery Disease Maternal Grandfather MS Coronary Artery Disease Paternal Grandfather MS Breast Cancer Other Social History Tobacco Use [...] Discussed expected course of illness Ivonne Cooper APRN.[facility]05-24-2024 History of Present illness Narrative* Ivonne Cooper APRN.RETAIL EVENT AND SALES ASSISTANT - 01/29/2024 8:48 AM EDT Images from [...] Maternal Grandmother Coronary Artery Disease Maternal Grandfather MS Coronary Artery Disease Paternal Grandfather MS Breast Cancer Other Social History Tobacco Use [...] Discussed expected course of illness Ivonne Cooper APRN.RETAIL EVENT AND SALES ASSISTANT documented in this encounterCh[facility]05-24-2024 Instructions* Patient Instructions* Ivonne Cooper APRN.RETAIL EVENT AND SALES ASSISTANT - 01/29/2024 8:48 AM EDT ASSESSMENT/PLAN: 1. [...] possible. To treat ahtlete s foot, use ywan-our-aemvbqo medicated foot powder or cream such as [...] one week of treatment. documented in this [facility]Ch[facility]07-[facility]-2023 Note Discharge Instructions Thank you for [...] Schedule the Following Appointments Follow Up with [facility] When Within 3-5 days Where: [address] [place] [address]- Allergies NKA Medications Please ask your [...] cramping, and pain worse. If taking medicines: Fgko-iwq-hstguje nausea and diarrhea medicines are generally OK [...] with soap and water and using alcohol-based smoke room operator is the best way to prevent the [...] Keep uncooked meats away from cooked and bbtzs-uy-wie foods. Use a food thermometer when cooking. Cook poultry to at least 165 F (74 C). Cook ground meat (beef,veal, pork, wang) to at least 160 F (71 C). Cook fresh beef, veal, wang, and pork to at least 145 F(63 C). Don t eat raw or undercooked eggs (poached or ajmie side up), poultry, meat, or unpasteurized milk [...] or as directed by your healthcare provider [phone] [employer]. [address] [place] [address], [place] [address]. All rights reserved. This information is not intended as a substitute for professional medical care. Always follow yourhealthcare professional's instructions. Additional Information VACCINATE! IT SAVES LIVES! Members of the community who have not yet received the COVID-19 vaccine and would like to receive it can visit one of [facility] vaccine clinics. There are many vaccine clinic locations within the State. For locations and available times, please visit www.gettheshot.coronavirus.[place].gov/. It is important to note that some COVID mobile vaccine clinics are held outdoors and may be canceled in rainy or stormy conditions. To learn more about pediatric vaccinations (ages 5-11), we invite you to visit the [facility] webpage. https://www.[facility].org/pages/2463-Rcmnm-Llvoasnstnq-Ggqtxionqa-Sysrp-Ljc stions.htmlTo learn more about the COVID-19 vaccine, we invite you to visit the CDC website for a list of frequently asked questions. https://www.cdc.gov/coronavirus/2019-ncov/vaccines/faq.html [facility] Patient Portal Access Instructions: Stay connected with your healthcare team and access your personal medical information anytime with the [facility] Patient Portal. If you would like a full copy of your medical records please contact the [facility] Medical Records Department Thursday through Thursday between 8a.m. and 4:30p.m. Please follow the directions below to access the portal: 1.Access the email account you provided upon registration to the hospital.2.Look for an invitation email from [facility].3.Open the email and access the invitation link: Accept Invitation to [facility] [place]4.Fill in the required momin to create your account. Sign into www.[email or web address] Effect with your username and password that you [...] you will allow to register on the [facility] Patient Portal for access to your information. You can also access the [facility] Patient Portal on the [employer] sammy. Simply click on Health Records under [place] and then click on the NoFlo logo. HOW TO SAFELY DISPOSE OF PRESCRIPTION [...] Call your local pharmacy or go to [email or web address] [email or web address]/[email or web address] to find one close to you.3.Make use of household items: Use cat litter or old coffee grounds to dispose medications if other options arenot available. Mix your drugs with these household products, seal them in an airtight container andthrow it into the garbage. Call [facility]: [phone] to be sure your drugs can be [...] aware that I should contact my doctor. Patient/International Coordinator Signature: Date/Time: Relationship to Patient: Witness Name/Signature: Date/Time: [facility]07-05-2023 Hospital Discharge instructions Patient Education 03/11/2023 15:26:59 [...] cramping, and pain worse. If taking medicines: Dqnc-zdx-otrejxu nausea and diarrhea medicines are generally OK [...] with soap and water and using alcohol-based smoke room operator is the best way to prevent the [...] Keep uncooked meats away from cooked and equqv-ge-sel foods. Use a food thermometer when cooking. [...] or as directed by your healthcare provider [phone] [employer]. [address] [place] [address], [place] [address]. All rights reserved. This information is not intended as a substitute for professional medical care. Always follow yourhealthcare professional's instructions. Follow Up Care 03/11/2023 14:21:03 With:[facility] Address: [address] [place] [address]- When:3-5 days [facility] 07-05-2023 Evaluation + Plan note Diagnostic Tests Pending * Stool Gastrointestinal Panel 03/11/23 * Fecal Leukocytes 03/11/23 * Stool Culture 03/11/23 [facility] 04-17-2023 Hospital Discharge instructions Patient Education 12/22/2022 [...] fluids will help loosen secretionsin the lungs. Tlse-ckj-ljmlgvb cough medicines that contain dextromethorphan (such as [...] Lower leg swelling, tenderness, redness or pain 6340-9325 [employer]. [address] [place] [address]. All rights reserved. This information is not [...] fluids will help loosen secretionsin the lungs. Axnj-btb-jrqasap cough medicines that contain dextromethorphan (such as [...] Lower leg swelling, tenderness, redness or pain 4168-3235 [employer]. [address] [place] [address], [place] [address]. All rights reserved. This information is not intended as a substitute for professional medical care. Always follow yourhealthcare professional's instructions. Follow Up Care 12/22/2022 13:04:26 With:Go to emergency room if symptoms worsen Address:Unknown When:2-4 days With:Call Physician Referral Address:Unknown When:2-4 days [facility] 04-17-2023 Note Discharge Instructions Thank you for allowing [facility] to assist you with your healthcare needs. [...] may report side effects to FDA at 7-113-ENA-6294. What other drugs will affect albuterol inhalation? [...] may affect albuterol inhalation, including prescription and rpyr-ipp-qdvqsij medicines, vitamins, and herbal products. Not all [...] to ensure that the information provided by [employer]. ('Multum') is accurate, up-to-date, and complete, but no guarantee is made to that effect. Drug information contained herein may be time sensitive. BringMeThat information has been compiled for use by healthcare practitioners and consumers in the [place] and therefore BringMeThat does not warrant that uses outside of the [place] are appropriate, unless specifically indicated otherwise. BringMeThat's drug information does not endorse drugs, diagnose patients or recommend therapy. Vigour.ios drug information isan informational resource designed to [...] effective or appropriate for any given patient. [employer] does not assume any responsibility for any aspect of healthcare administered with the aid of information [facility] provides. The information contained herein is not intended to cover all possible uses, directions, precautions, warnings, drug interactions, allergic reactions, or adverse effects. If you have questions about the drugs you are taking, check with your doctor, nurse or pharmacist. Copyright 2798-5696 [employer]. Version: 06.07. Revision Date: 07/25/2020. prednisone (PRED bert tran) Matteo What is the most important information [...] may report side effects to FDA at 2-100-FUC-7296. What other drugs will affect prednisone? Sometimes [...] may affect prednisone. This includes prescription and awdq-aiq-iybnddb medicines, vitamins, and herbal products. Not all [...] to ensure that the information provided by [employer]. ('Multum') is accurate, up-to-date, and complete, but no guarantee is made to that effect. Drug information contained herein may be time sensitive. BringMeThat information has been compiled for use by healthcare practitioners and consumers in the [place] and therefore BringMeThat does not warrant that uses outside of the [place] are appropriate, unless specifically indicated otherwise. V[employer]ios drug information does not endorse drugs, diagnose patients or recommend therapy. Vigour.ios drug information isan informational resource designed to [...] effective or appropriate for any given patient. [facility] does not assume any responsibility for any aspect of healthcare administered with the aid of information [facility] provides. The information contained herein is not intended to cover all possible uses, directions, precautions, warnings, drug interactions, allergic reactions, or adverse effects. If you have questions about the drugs you are taking, check with your doctor, nurse or pharmacist. Copyright 3615-7581 [facility] UEIS. Version: 06.07. Revision Date: 12/02/2018. benzonatate (jania SIMONElina pitts) [place] What is the most [...] may report side effects to FDA at 2-310-YFT-9188. What other drugs will affect benzonatate? Using benzonatate with other drugs that make you drowsy can worsen this effect. Ask your doctor before using opioid medication, a sleeping pill, a muscle relaxer, or medicine for anxiety or seizures. Other drugs may affect benzonatate, including prescription and vfkm-igw-ljldfxc medicines, vitamins, and herbal products. Tell your [...] to ensure that the information provided by [employer]. ('Multum') is accurate, up-to-date, and complete, but no guarantee is made to that effect. Drug information contained herein may be time sensitive. BringMeThat information has been compiled for use by healthcare practitioners and consumers in the [place] and therefore BringMeThat does not warrant that uses outside of the [place] are appropriate, unless specifically indicated otherwise. Vigour.ios drug information does not endorse drugs, diagnose patients or recommend therapy. Vigour.ios drug information isan informational resource designed to [...] effective or appropriate for any given patient. [employer] does not assume any responsibility for any aspect of healthcare administered with the aid of information [employer]MeThat provides. The information contained herein is not intended to cover all possible uses, directions, precautions, warnings, drug interactions, allergic reactions, or adverse effects. If you have questions about the drugs you are taking, check with your doctor, nurse or pharmacist. Copyright 0085-0446 [employer]. Version: 9.01. Revision Date: 06/16/2019. Education Materials [...] fluids will help loosen secretionsin the lungs. Ypks-lfk-wufacef cough medicines that contain dextromethorphan (such as [...] Lower leg swelling, tenderness, redness or pain 0411-3357 [employer]. [address] [place] [address], [place] [address]. All rights reserved. This information is not [...] fluids will help loosen secretionsin the lungs. Xyym-gbh-wwtlzrm cough medicines that contain dextromethorphan (such as [...] Lower leg swelling, tenderness, redness or pain 6600-4093 [employer]. [address] [place] [address]. All rights reserved. This information is not intended as a substitute for professional medical care. Always follow yourhealthcare professional's instructions. Additional Information VACCINATE! IT SAVES LIVES! Members of the community who have not yet received the COVID-19 vaccine and would like to receive it can visit one of [facility] vaccine clinics. There are many vaccine clinic locations within the [facility]. For locations and available times, please visit www.gettheshot.coronavirus.[place].gov/. It is important to note that some COVID mobile vaccine clinics are held outdoors and may be canceled in rainy or stormy conditions. To learn more about pediatric vaccinations (ages 5-11), we invite you to visit the [facility] webpage. https://www.[facility].org/pages/3500-Ewyif-Ieuvpiqwqaq-Vvnmttvzeb-Egjue-Zmk stions.htmlTo learn more about the COVID-19 vaccine, we invite you to visit the CDC website for a list of frequently asked questions. https://www.cdc.gov/coronavirus/2019-ncov/vaccines/faq.html [email or web address] Patient Portal Access Instructions: Stay connected with your healthcare team and access your personal medical information anytime with the [email or web address] Patient Portal. If you would like a full copy of your medical records please contact the [facility] Medical Records Department Thursday through Thursday between 8a.m. and 4:30p.m. Please follow the directions below to access the portal: 1.Access the email account [facility]2.Look for an invitation email from [facility].3.Open the email and access the invitation link: Accept Invitation to [facility]4.Fill in the required momin to create your account. Sign into [email or web address].[email or web address] Effect with your username and password that you [...] you will allow to register on the [facility] Patient Portal for access to your information. You can also access the [facility] Patient Portal on the [employer]. Simply click on Health Records under [place] and then click on the NoFlo logo. HOW TO SAFELY DISPOSE OF PRESCRIPTION [...] Call your local pharmacy or go to http://[email or web address] [email or web address] to find one close to you.3.Make use of household items: Use cat litter or old coffee grounds to dispose medications if other options arenot available. Mix your drugs with these household products, seal them in an airtight container andthrow it into the garbage. Call [facility]: [phone] to be sure your drugs can be [...] aware that I should contact my doctor. Patient/International Coordinator Signature: Date/Time: Relationship to Patient: Witness Name/Signature: Date/Time: [facility]04-17-2023 Note ORIGINAL HISTORY: Cough COMPARISON: 17 June [...] 12/22/2022 2:43:59 PM Ordering Provider: MANGO TYSON [facility]04-17-2023 Note ORIGINAL HISTORY: Cough COMPARISON: 17 June [...] Sign Date: 12/22/2022 2:43:59 PM Ordering Provider: [place] 24368-17-2023 SARS-CoV-2 (COVID-19) RNA TRAY+probe Ql (Nph)Negative *NA* (12/22/22 1:40 PM)AO Auto Urine [id number] Hospital Discharge instructions* Discharge Instructions* Omar Walls [...] or pallor in extremity. [facility] Phone: [phone] Hospital Discharge instructions* Discharge Instructions* Nahid Mackey [...] sent through Care Everywhere. * Weakness: Generalized (Namibian) documented in [facility] Work Phone: 1(787) 241-417310-12-2022 NoteOPERATIVE NOTE DATE OF PROCEDURE: 06/19/2022 SURGEON: [...] outside hospital who then transferred him to [facility] for further care. I explained the [...] was performed I can easily see my angela. First started to evaluate the laceration. This [...] was woken from anesthesia without any issues [facility]10-12-2022 History of Present illness Narrative* Smiley Swanson [...] follow Kam Ramirez MD Orthopaedic Surgery, PGY3 [facility] [phone] * Batsheva Salgado, CHOCOLATE FINISHER OPERATOR - RETAIL EVENT AND SALES ASSISTANT - 06/18/2022 6:29 AM EDT Images from [...] [facility]. Patient pain level currently is 06/16. INJURIES: [...] PRN Kam Ramirez MD 5 mg at 06/18/2257 Or oxyCODONE (ROXICODONE) immediate release tablet 10 [...] q8h Kam Ramirez MD 12.5 mL/hr at 06/18/228 3,375 mg at 06/18/22 0458 enoxaparin Sodium (LOVENOX) injection 30 mg 30 mg SubCUTAneous BID Dimas Bridges APRN - RETAIL EVENT AND SALES ASSISTANT 30 mg at1 1451 ARE THERE PERTINENT [...] (35.7 C) Temporal 56 20 98 % 06/17/223 124/73 99.1 F (37.3 C) Temporal 66 [...] Temporal 81 16 97 % Last BM: adz worker Diet: Regular PHYSICAL: Physical Exam Vitals and [...] Radiology ACCESSION EXAM DATE/TIME PROCEDURE ORDERING PROVIDER [id number] 06/17/2022 03:53 EDT CR Hand Complete 3+ [id number] -Jhonatan VILLAFANA Right HIEU CPT code 88449 Reason For Exam (CR Hand Complete 3+ [...] Computed Tomography ACCESSION EXAMDATE/TIME PROCEDURE ORDERING PROVIDER [id number] 06/17/2022 05:[address] Chest/Abdomen/Pelvis [id number] -RENATO EATON (IV Only) CPT code 72035 79788 Q9967 Reason For Exam (CT Chest/Abdomen/Pelvis (IV [...] Radiology ACCESSION EXAM DATE/TIME PROCEDURE ORDERING PROVIDER [id number] 06/17/2022 03:53 EDT CR Wrist Complete 3 [id number] -KAM RAMIREZ Views Right CPT code 47047 Reason For Exam (CR Wrist Complete 3 [...] nodule 06/17/2022 Yes I personally supervised the CHOCOLATE FINISHER OPERATOR/TREVOR in the evaluation and development of a [...] as stated in HPI. - as per CHOCOLATE FINISHER OPERATOR note - I evaluated pt on 06/18/22 - doing well, pain controlled - d/c w/ po keflex [id number] - f/u ortho outpt - plan for home today Greater than 51% of the >= 25 minute total care time throughout the day (including chart review,care coordination, and pecn-lc-gtfw encounter) was spent discussing/counseling the patient/family regarding the care plan for Jessica Barr. I examined independently and reviewed relevant data myself and may have done so in the context of team rounds. Girma Tan MD Division of Trauma Department of Surgery [facility] ~~~~~~~~~~~~~~~~~~~~~~~~~~~~~~~~~~~~~~~~~~~~~~~~~~~~~~~~~~~~~ This note may have been dictated using ToVieFor Medical Practice Edition 2.6 and/or Penboost Voice Recognition Feature. The document was proofread; however, unrecognized voice recognition packaging tech errors may be present. * Justo Jorge, OT - 06/17/2022 4:08 PM EDT Occupational Therapy Facility/Department: [facility] Occupational Therapy Initial Assessment [...] and phone number for OP OT at [facility] since this is closest to home, [...] Social/Functional History Additional Comments: works on the [employer] Objective Heart Rate: 80 Heart Rate Source: [...] AM-PAC Inpatient Daily Activity Raw Score: 18 AM-[facility] Inpatient ADL T-Scale Score : 38.66 ADL Inpatient CMS 0-100% Score: 46.65 ADL Inpatient CMS G-Code Modifier : CK AM-PAC Score AM-PAC Inpatient Daily Activity Raw Score: 18 (06/17/22 1557) AM-PAC Inpatient ADL T-Scale Score : 38.66 (06/17/22 155) ADL Inpatient CMS 0-100% Score: 46.65 (06/17/221557) ADL Inpatient CMS G-Code Modifier : CK (06/17/221557) Tinneti Score Goals Therapy Time Individual Concurrent Group Co-treatment Time In 1400 Time Out 1424 Minutes 24 Timed Code Treatment Minutes: 10 Minutes Justo Jorge OT Goals and/or treatment plan was established in collaboration with patient/family/other representatives. *OT evaluation/treatment completed wearing N95 and gloves* * Erendira Evans, PT - 06/17/2022 2:30 PM EDT Physical Therapy Facility/Department: [facility] Physical Therapy Initial Assessment [...] Social/Functional History Additional Comments: works on the [employer] Vision/Hearing Cognition Objective AROM RLE (degrees) RLE [...] during entire PT eval/Rx. Erendira Evans PT * Dimas Bridges APRN - RETAIL EVENT AND SALES ASSISTANT - 06/17/2022 6:15 AM EDT ASSESSMENT: 19 [...] care, likely discharge tomorrow documented in this [facility] Work Phone: [phone] Hospital Discharge instructions* Discharge Instructions* Glory Stinson [...] your lung navigator, Sahara Stinson RRT, @ [phone] if you have any questions about your [...] at most local grocery stores, pharmacies, and [employer]-stores. If you have any questions about your diet or nutrition, call the hospital and ask for the dietitian. Regular Diet * Discharge Instr - Lab* Tami Guerra RN - 06/18/2022 9:06 AM EDT Therapy recommending outpatient therapy for strengthing and balance training. Outpatient Services for rehabilitation [phone] to make an appointment [facility] [address] [place] [address] [facility] at [facility] [address] [place] [address] [facility] at [facility] [address] [place] [address] [facility] [address] [address] [facility] [address] [place] [address] [facility] at [address] [place] [address] [facility] at [address] [place] [address] * Attachments The following attachments cannot be sent through Care Everywhere. * Pulmonary Nodules: General Info (Namibian) documented in this [facility] Work Phone: [phone] Note ORIGINAL EXAMINATION: CT OF THE HEAD [...] Sign Date: 06/17/2022 1:37:39 AM Ordering Provider: [facility]10-11-2022 Note ORIGINAL EXAMINATION: CT OF [...] Sign Date: 06/17/2022 1:35:06 AM Ordering Provider: [address]11-2022 Note ORIGINAL EXAMINATION: ONE XRAY VIEW OF [...] Sign Date: 06/17/2022 1:31:13 AM Ordering Provider: [facility]10-11-2022 Note ORIGINAL EXAMINATION: CT OF [...] Sign Date: 06/17/2022 1:37:39 AM Ordering Provider: [facility]10-11-2022 Note ORIGINAL EXAMINATION: CT OF THE CERVICAL [...] Sign Date: 06/17/2022 1:35:06 AM Ordering Provider: [facility]10-11-2022 Note ORIGINAL EXAMINATION: ONE XRAY VIEW OF [...] Sign Date: 06/17/2022 1:31:13 AM Ordering Provider: [facility]10-11-2022 Note ORIGINAL EXAMINATION: TWO XRAY VIEWS OF [...] Sign Date: 06/17/2022 12:21:56 AM Ordering Provider: [facility]10-11-2022 Note ORIGINAL EXAMINATION: TWO XRAY [...] Sign Date: 06/17/2022 12:21:56 AM Ordering Provider: [facility]08-11-2022 Hospital Discharge instructions Patient Education 04/17/2022 14:52:09 [...] Rectal bleeding can also happen without pain. [id number] [employer]. [address] [place] [address]. All rights reserved. This information is not intended as a substitute for professional medical care. Always follow yourhealthcare professional's instructions. Follow Up Care 04/17/2022 14:32:48 With:VASQUEZ MOCTEZUMA MD Address: [address] [place] [address]- When:2-4 days [facility] 08-11-2022 Note Discharge Instructions Thank you for allowing [facility] to assist you with your healthcare needs. [...] MOCTEZUMA MD When Within 2-4 days Where: [address] [place] [address]- Allergies NKA Medications Please ask your primary [...] Rectal bleeding can also happen without pain. [phone] [employer]. [address] [place] [address]. All rights reserved. This information is not intended as a substitute for professional medical care. Always follow yourhealthcare professional's instructions. Additional Information VACCINATE! IT SAVES LIVES! Members of the community who have not yet received the COVID-19 vaccine and would like to receive it can visit one of [facility] vaccine clinics. There are many vaccine clinic locations within the [facility]. For locations and available times, please visit [email or web address]. It is important to note that some COVID mobile vaccine clinics are held outdoors and may be canceled in rainy orstormy conditions. To learn more about pediatric vaccinations (ages 5-11), we invite you to visit the [facility] webpage. [email or web address]/[email or web address]-Enzif-Ovltxdocytk-Wuklwdfyzu-Mwbfl-Amm stions.htmlTo learn more about the COVID-19 vaccine, we invite you to visit the [facility] website for a list of frequently asked questions. [email or web address]-[email or web address]-Tdughlro/zrzuq-Ysihplp-Rievendsav _[email or web address]-Questions.pdf [facility] Patient Portal Access Instructions: Stay connected with your healthcare team and access your personal medical information anytime with the [facility] [email or web address] Patient Portal. If you would like a full copy of your medical records please contact the [facility] Medical Records Department Thursday through Thursday between 8a.m. and 4:30p.m. Please follow the directions below to access the portal: 1.Access the email account you provided upon [facility] the [facility].2.Look for an invitation email from [facility].3.Open the email and access the invitation link: Accept Invitation to [facility]4.Fill in the required momin to create your account. Sign into [email or web address] with your username and password that you [...] you will allow to register on the [facility] [email or web address] Patient Portal for access to your information. You can also access the [facility] Patient Portal on the [employer] sammy. Simply click on Health Records under HealthData and then click on the [facility] logo. [...] Call your local pharmacy or go to http://bit.ly/9K6Ex1g to find one close to you.3.Make use of household items: Use cat litter or old coffee grounds to dispose medications if other options arenot available. Mix your drugs with these household products, seal them in an airtight container andthrow it into the garbage. Call [facility]: [phone] to be sure your drugs can be [...] aware that I should contact my doctor. Patient/International Coordinator Signature: Date/Time: Relationship to Patient: Witness Name/Signature: Date/Time: [facility]05-27-2022 History of Present illness Narrative * Prakash Zhao MD - 01/31/2022 4:45 PM EDT This note was created using Medico.comriter. Subjective Patient presents with: Acute Visit: chest [...] SCRN Prakash Zhao MD [facility] Miscellaneous Notes* Telephone Encounter - Jessy [...] please notify thank you documented [facility] History of Present illness Narrative* Ivonne [...] Maternal Grandmother Coronary Artery Disease Maternal Grandfather MS Coronary Artery Disease Paternal Grandfather MS Breast Cancer Other Social History Tobacco Use [...] Discussed expected course of illness Ivonne Cooper APRN.RETAIL EVENT AND SALES ASSISTANT documented in this [facility]Ch[facility]-2022 Instructions* Patient Instructions* Ivonne Cooper APRN.BENNY [...] Discussed expected course of illness Ivonne Cooper APRN.RETAIL EVENT AND SALES ASSISTANT SORE THROAT INSTRUCTIONS SORE THROAT OVERVIEW - [...] or mouth and then touchesanother person directly (dsvu-ws-qvnw contact) or indirectly (zboc-as-namipv, such as doorknob, telephone, toys). It is [...] every four months on our web site (www.[email or web address]). Information below was obtained from Up to date Last literature review version 19.2: January 2011 This topic last updated: April 24, 2010 documented in this [facility] Evaluation + Plan note Future Scheduled Tests Laboratory* COVID-19 Only (AO) 04/29/21 [facility] Consult note Author Alondra Seals [facility] Note Date/Time March 07, 2025 10:55 am [facility] Medical Records Department [address] [place] [address] Counseling Note - Pharmacy 03/07/25 1054 MR#: [id number] Acct: [id number] Name: JESSICA BARR Rep #:[id number] : 2005 From: Alondra Seals PCP: ALEJANDRO Brown Status:AD M IN [place] [id number] Counseling Pharmacy Service has performed discharge medication reconciliation and counseling for this patient. 1. NORCO 5/325MG PO Q6H PRN PAIN 2. ONDANSETRON 4MG PO Q6H PRN NAUSEA/VOMITING 3. SENNA/DOCUSATE 2T PO BID PRN CONSTIPATION The patient's discharge medication list was reviewed for discrepancies and discrepancies were resolved. The patient was counseled on the following discharge medications and changes in medications for homegoing were reviewed. The Reason for Use, instructions for use, and potential side effects were reviewed for all new medications. The patient's questions regarding all of their medications were answered. The patient was able to verbally demonstrate an understanding of their dischargemedications. Medications at Discharge Home Medications hydrocodone-acetaminophen 5-325mg 5mg-325mg 1 tab PO Q6H PRN PRN Pain 3 days #12TABLETS 03/05/25 ondansetron 4 mg disintegrating tablet 4 mg PO Q6H PRN nausea and vomiting #12 tabs 03/05/25 sennosides 8.6 mg-docusate sodium 50 mg tablet (Stimulant Laxative Plus) 2 tab PO BID PRN PRN Constipation #0 tabs 03/07/25 03/07/25 1055 <Electronically signed by Alondra Seals> Date _ Alondra Seals Cosigngustavo Signature (if applicable): Date CC: ~ Signed [facility] Work Phone: Discharge summary Author Lupillo Alvarado [facility] Note Date/Time January 29, 2025 5:39a m [facility] Medical Records Department [address] [place] [address] Emergency Department Summary 01/29/25 MR#: [id number] Acct: [id number] Name: JESSICA BARR Rep #:[id number] : 2005 From: Lupillo Alvarado MD PCP: JUAN DANIEL BrownC Status:RE G ER Location: ED HPI HPI [...] oriented x3 and CN's II-XII intact bilaterally Tullos Coma Scale: document GCS findings Spontaneous Obeys [...] of paranoia. Will have Cheli the licensed practical nurse clinic nurse for the crisis center see him make [...] Referrals: Counseling,Center [Group of Physicians] - Keep Myrna appointment Mitali Mosher NP, SUMMER SESSIONS DIRECTOR-C [Primary Care Provider] - 1-2 Weeks Activity Restrictions/Additional Instructions: 1. Your blood pressure readings are elevated. Should have this rechecked by your provider Mitali Mosher NP. 2. Take 1 Zoloft tablet at bedtime. 3. Make/keep appointment at counseling center Print Language: Namibian Disposition Disposition: Home, Self Care What to do if you have Problems For any increased pain, shortness of breath, bleeding, nausea or vomiting, chestpain, or any unexpected problems, contact your Primary Care Provider. Call [facility] ([phone]) or report to the closest Emergency Room. Call 911 if necessary. 01/29/25 0539 <Electronically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 [address] [facility] [place] [address] PCP - General Internal Medicine 01/31/22 Warp Clamper Relationship Specialty Start Date End Date Prakash Zhao MD [address] [facility] [place] [address] PCP - General Internal Medicine 01/31/22 Warp Clamper Relationship Specialty Start Date End Date Prakash Zhao MD [address] [facility] [place] [address] PCP - General Internal Medicine 01/31/22 Warp Clamper Relationship Specialty Start Date End Date Prakash Zhao MD [address] [facility] [place] [address] PCP - General Internal Medicine 01/31/22 Team Status: Active Member Role Status Dates Mitali Mosher NP, SUMMER SESSIONS DIRECTOR-C Primary Care Provider Activ e Team Status: Inactive Member Role Status Dates Dr. Lupillo Alvarado MD Emergency Provider Active Sta rt: January 29, 2025 End: January 29, 2025 Mitali Mosher NP, SUMMER SESSIONS DIRECTOR-C Primary Care Provider Activ e Start: January 29, 2025 End: January 29, 2025 Warp Clamper Relationship Specialty Start Date End Date Prakash Zhao MD [address] [facility] [place] [address] PCP - General Internal Medicine 01/31/22 Megan Badillo, CHOCOLATE FINISHER OPERATOR.RETAIL EVENT AND SALES ASSISTANT [address] [place] [address] Pourer Internal Medicine 08/15/24 Team Status: Active Member Role/Relationship Status Dates Mitali Mosher NP, SUMMER SESSIONS DIRECTOR-C Primary Care Provider Activ e Team Status: Inactive Member Role/Relationship Status Dates Dr. Lupillo Alvarado MD Attending Provider Active Sta rt: January 29, 2025 End: January 29, 2025 Dr. Lupillo Alvarado MD Emergency Provider Active Sta rt: January 29, 2025 End: January 29, 2025 Mitali Mosher SUMMER SESSIONS DIRECTOR, SUMMER SESSIONS DIRECTOR-C Primary Care Provider Activ e Start: January 29, 2025 End: January 29, 2025 Team Status: Inactive Member Role/Relationship Status Dates Mitali Mosher NP, SUMMER SESSIONS DIRECTOR-C Primary Care Provider Activ e Start: March 04, 2025 End: March 04, 2025 Dr. Kobe Pisano DO Referring Provider Active Start: March 04, 2025 End: March 04, 2025 Dr. Kobe Pisano DO Emergency Provider Active Start: March 04, 2025 End: March 04, 2025 Team Status: Inactive Member Role/Relationship Status Dates Mitali Mosher NP, SUMMER SESSIONS DIRECTOR-C Primary Care Provider Activ e Start: March 05, 2025 End: March 05, 2025 Dr. Kobe Pisano DO Emergency Provider Active Start: March 05, 2025 End: March 05, 2025 Team Status: Inactive Member Role/Relationship Status Dates Mitali Mosher NP, SUMMER SESSIONS DIRECTOR-C Primary Care Provider Activ e Start: March 05, 2025 End: March 07, 2025 Dr. Kobe Pisano DO Emergency Provider Active Start: March 05, 2025 End: March 07, 2025 Dr. Felecia Roladn MD Admit Provider Active Star t: March 05, 2025 End: March 07, 2025 Dr. Felecia Roland MD Other Provider Active Star t: March 05, 2025 End: March 07, 2025 Dr. Feliz Van MD Other Provider Active Start: March 05, 2025 End: March 07, 2025 Dr. Frankie Moreno MD Attending Provider Active Start: March 05, 2025 End: March 07, 2025 Team Status: Active Member Role/Relationship Status Dates Mitali Mosher NP, SUMMER SESSIONS DIRECTOR-C Primary Care Provider Activ e Start: March 06, 2025 Dr. Kobe Pisano DO Emergency Provider Active Start: March 06, 2025 Dr. Felecia Roland MD Admit Provider Active Star t: March 06, 2025 Dr. Felecia Roland MD Other Provider Active Star t: March 06, 2025 Dr. Feliz Van MD Other Provider Active Start: March 06, 2025 Dr. Frankie Moreno MD Attending Provider Active Start: March 06, 2025 Dr. Frankie Moreno MD Other Provider Active Sta rt: March 06, 2025 Team Status: Active Member Role/Relationship Status Dates Mitali Mosher NP, SUMMER SESSIONS DIRECTOR-C Primary Care Provider Activ e Start: March 07, 2025 Dr. Kobe Pisano DO Emergency Provider Active Start: March 07, 2025 Dr. Felecia Roland MD Admit Provider Active Star t: March 07, 2025 Dr. Felecia Roland MD Other Provider Active Star t: March 07, 2025 Dr. Feliz Van MD Other Provider Active Start: March 07, 2025 Dr. Frankie Moreno MD Attending Provider Active Start: March 07, 2025 Dr. Frankie Moreno MD Other Provider Active Sta rt: March 07, 2025 Team Status: Inactive Member Role/Relationship Status Dates Mitali Mosher NP, SUMMER SESSIONS DIRECTOR-C Primary Care Provider Activ e Start: March 04, 2025 End: March 04, 2025 Dr. Kobe Pisano DO Attending Provider Active Start: March 04, 2025 End: March 04, 2025 Dr. Kobe Pisano DO Referring Provider Active Start: March 04, 2025 End: March 04, 2025 Dr. Kobe Pisano DO Emergency Provider Active Start: March 04, 2025 End: March 04, 2025 Team Status: Inactive Member Role/Relationship Status Dates Mitali Mosher NP, SUMMER SESSIONS DIRECTOR-C Primary Care Provider Activ e Start: March 27, 2025 End: March 27, 2025 Dr. Feliz Van MD Referring Provider Active Start: March 27, 2025 End: March 27, 2025 Dr. Renato Brunson MD Attending Provider Active S tart: March 27, 2025 End: March 27, 2025 Team Status: Active Member Role/Relationship Status Dates Mitali Mosher SUMMER SESSIONS DIRECTOR, SUMMER SESSIONS DIRECTOR-C Primary Care Provider Activ e Start: March 27, 2025 Dr. Renato Brunson MD Attending Provider Active S tart: March 27, 2025 Dr. Renato Brunson MD Referring Provider Active S tart: March 27, 2025 Warp Clamper Relationship Specialty Start Date End Date Prakash Zhao MD [address] [place] [address] PCP - General Internal Medicine 01/31/22 Megan Badillo, CHOCOLATE FINISHER OPERATOR.RETAIL EVENT AND SALES ASSISTANT [address] [place] [address] Pourer Internal Medicine 08/15/24 Team Status: Inactive Member Role/Relationship Status Dates Mitali Mosher NP, SUMMER SESSIONS DIRECTOR-C Primary Care Provider Activ e Start: March 28, 2025 End: March 28, 2025 Dr. Renato Brunson MD Attending Provider Active S tart: March 28, 2025 End: March 28, 2025 Dr. Renato Brunson MD Referring Provider Active S tart: March 28, 2025 End: March 28, 2025 Team Status: Active Member Role/Relationship Status Dates Mitali Mosher NP, SUMMER SESSIONS DIRECTOR-C Primary Care Provider Activ e Start: March 30, 2025 Dr. Renato Brunson MD Attending Provider Active S tart: March 30, 2025 Dr. Renato Brunson MD Referring Provider Active S tart: March 30, 2025 Team Status: Inactive Member Role/Relationship Status Dates Mitali Mosher SUMMER SESSIONS DIRECTOR, SUMMER SESSIONS DIRECTOR-C Primary Care Provider Activ e Start: April 04, 2025 End: April 04, 2025 Mitali Mosher NP, SUMMER SESSIONS DIRECTOR-C Referring Provider Active Start: April 04, 2025 End: April 04, 2025 Dr. Renato Brunson MD Attending Provider Active S tart: April 04, 2025 End: April 04, 2025 Team Status: Active Member Role/Relationship Status Dates Mitali Mosher SUMMER SESSIONS DIRECTOR, SUMMER SESSIONS DIRECTOR-C Primary Care Provider Activ e Start: April 04, 2025 Dr. Renato Brunson MD Attending Provider Active S tart: April 04, 2025 Dr. Renato Brunson MD Referring Provider Active S tart: April 04, 2025 Team Status: Active Member Role/Relationship Status Dates Mitali Mosher SUMMER SESSIONS DIRECTOR, SUMMER SESSIONS DIRECTOR-C Primary Care Provider Activ e Start: April 05, 2025 Dr. Renato Brunson MD Attending Provider Active S tart: April 05, 2025 Dr. Renato Brunson MD Referring Provider Active S tart: April 05, 2025 Team Status: Inactive Member Role/Relationship Status Dates Mitali Mosher SUMMER SESSIONS DIRECTOR, SUMMER SESSIONS DIRECTOR-C Primary Care Provider Activ e Start: April 11, 2025 End: April 11, 2025 Mitali Mosher SUMMER SESSIONS DIRECTOR, SUMMER SESSIONS DIRECTOR-C Referring Provider Active Start: April 11, 2025 End: April 11, 2025 Dr. Renato Brunson MD Attending Provider Active S tart: April 11, 2025 End: April 11, 2025 Team Status: Inactive Member Role/Relationship Status Dates Mitali Mosher SUMMER SESSIONS DIRECTOR, SUMMER SESSIONS DIRECTOR-C Primary Care Provider Activ e Start: April 05, 2025 End: April 05, 2025 Dr. Renato Brunson MD Attending Provider Active S tart: April 05, 2025 End: April 05, 2025 Dr. Renato Brunson MD Referring Provider Active S tart: April 05, 2025 End: April 05, 2025 Team Status: Inactive Member Role/Relationship Status Dates Mitali Mosher SUMMER SESSIONS DIRECTOR, SUMMER SESSIONS DIRECTOR-C Primary Care Provider Activ e Start: April 05, 2025 End: April 05, 2025 Dr. Renato Brunson MD Attending Provider Active S tart: April 05, 2025 End: April 05, 2025 Dr. Renato Brunson MD Referring Provider Active S tart: April 05, 2025 End: April 05, 2025 Team Status: Inactive Member Role/Relationship Status Dates Mitali Mosher SUMMER SESSIONS DIRECTOR, SUMMER SESSIONS DIRECTOR-C Primary Care Provider Activ e Start: April 11, 2025 End: April 11, 2025 Mitali Mosher SUMMER SESSIONS DIRECTOR, SUMMER SESSIONS DIRECTOR-C Referring Provider Active Start: April 11, 2025 End: April 11, 2025 Dr. Renato Brunson MD Attending Provider Active S tart: April 11, 2025 End: April 11, 2025 Team Status: Inactive Member Role/Relationship Status Dates Mitali Mosher SUMMER SESSIONS DIRECTOR, SUMMER SESSIONS DIRECTOR-C Primary Care Provider Activ e Start: May 03, 2025 End: May 03, 2025 Mitali Mosher NP, SUMMER SESSIONS DIRECTOR-C Referring Provider Active Start: May 03, 2025 End: May 03, 2025 Dr. Renato Brunson MD Attending Provider Active S tart: May 03, 2025 End: May 03, 2025 Care Team (unrecognized sect ion and content) Care Team Personnel Name: VAQSUEZ MOCTEZUMA MD Position: P4 Physician - Primary Care Med Service: Active Provider Member Role: Primary Care Physician Address: Address: [address] [place] [address] Care Team Related Persons Name: GEOVANNI SWEET Address: [place] [id number] Address: [place] [address] Name: NONE, Name: NONE, Care Team Personnel Name: VASQUEZ MOCTEZUMA MD Position: P4 Physician - Primary Care Med Service: Active Provider Member Role: Primary Care Physician Address: Address: [address] [place] [address] Care Team Related Persons Name: GEOVANNI SWEET Address: [place] [id number] Address: [place] [address] Name: NONE, Name: NONE, Ordered Prescriptions (unrec [...] Other Clinician - Provider: Edmund Julien RN)1027 ([facility] Unhold - Provider: Kam Ramirez MD) celecoxib [...] mL/lumen 1300 (Not Given - Provider: Maru Galvez, RN - Reason: IV Fluid Infusing)2107 (Not [...] Unreviewed Transfer Orders)1027 (NOV Unhold - Provider: Mrau Galvez RN) PRN Medication Order 06/16/2022 06/17/2022 [...] Severe (7-10) 1531 (See Alternative - Provider: Maur Galvez RN)2058 (See Alternative - Provider: Emmanuel Horton RN) 0058 (See Alternative - Provider: Emmanuel Horton RN)0529 (Given - Provider: Emmanuel Horton RN)0951 (Given - Provider: Smiley Swanson, RN)1354 (Given - Provider: Smiley Swanson, RN) oxyCODONE (ROXICODONE) immediate release tablet 5 mg(Linked Group 2) 5 mg, Oral, EVERY 4 HOURS PRN, Starting on Thu06/17/22 at 0626, Until Discontinued, Pain Moderate (4-6) 1531 (Given - Provider: Maru Galvez RN)205 (Given - Provider: Emmanuel Hroton RN) 0058 (Given - Provider: Emmanuel Horton RN)0529 (See Alternative - Provider: Emmanuel Horton RN)0951 (See Alternative - Provider: Smiley Swanson RN)2624 (See Alternative - Provider: Smiley Swanson RN) [...] section and content) DATE CREATED AUTHOR 07/02/2022 [employer] [facility] DATE CREATED AUTHOR AUTHOR'S ORGANIZ ATION 03/27/2023 [facility] ([place] DATE CREATED AUTHOR AUTHOR'S ORGANIZ ATION 05/15/2024 [facility] DATE CREATED AUTHOR AUTHOR'S ORGANIZ ATION 10/20/2024 [employer] [facility] DATE CREATED AUTHOR AUTHOR'S ORGANIZ ATION 02/26/2025 [facility] DATE CREATED AUTHOR AUTHOR'S ORGANIZ ATION 03/29/2025 [facility] DATE CREATED AUTHOR AUTHOR'S ORGANIZ ATION 05/10/2025 [facility] Goals (unrecognized section and content) Goals may [...] BE BASED ON THE PRIMARY CLINICAL RECORDS. [employer] provides no warranty or guarantee of the accuracy or completeness of information in this document.
== END 2025-05-11 21:22 ==
LOC: ED 14:53
PROVIDERS: Emergency Provider Emergency Medicine; PCP Registered Nurse; Visit Provider Emergency Medicine
DX: F41.8 Other specified anxiety disorders (principal); R45.851 Suicidal ideations; F17.210 Nicotine dependence, cigarettes, uncomplicated; F17.290 Nicotine dependence, other tobacco product, uncomplicated
CPT/HCPCS: 36415; 80048; 80307; 82077; 85025; 99284

== ENCOUNTER 2025-05-18 02:11 | Emergency (ER) | payer MEDICAID, SELFPAY ==
[2025-05-18 02:12] VITALS: BP 155/89; PULSE 118; RESP 18; TEMP 36.8; O2SAT 98; BMI 23.2
--- OUTSIDE RECORDS SUMMARY | 2025-05-18 02:42 | XMS RPT_ITS | CCD ---
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 Name Role Phone Vasquez Moctezuma Primary Care Provider [phone] Prakash Zhao MD Primary Care Provider [phone] JOSE ELIAS CALVIN, VASQUEZ Arevalo Primary Care Physician Unavailable Primary Care Provider UnavailOMAR Carrillo Attending Unavailable Sindi, PCP Primary Care Unavailable PROVIDER, UNKNOWN Referring Unavailable Davida GUERRA Attending Linus crabtree No, PCP Primary Care Unavailable PROVIDER, UNKNOWN Referring Unavailable No, PCP Primary Care Unavailable PROVIDER, UNKNOWN Referring Unavailable Hilario eMlchor Attending Unavailable PHYSICIAN, NONE Primary Care Physician [...] Prakash Zhao MD Primary Care Provider [phone] PRAKASH ZHAO Primary Care Unavailable ANDREI, PRAKASH [...] Vidhi HAINES-C, Mitali Primary Care Provider Aby PAINTER AND DECORATOR APPRENTICE.SUPERINTENDENT MAINTENANCE [employer], Megan M Unavailable MEHRDAD SPENCER-BENNY, DARREN Gonzales Attending Priscilai leyda MOSHER PAINTER AND DECORATOR APPRENTICE-SUPERINTENDENT MAINTE[employer]CE [employer], MITALI A Primary Care Un available REG SHARPE DO Attending Unavailable VIDHI PAINTER AND DECORATOR APPRENTICE-SUPERINTENDENT MAINTENA[employer]CE [employer], MITALI A Primary Care Un available SARBJIT CALVIN, DR KIARA Koenig Attending Unavailcésar e VIDHI PAINTER AND DECORATOR APPRENTICE-SUPERINTENDENT [employer]CE [employer], MITALI A Primary Care Un available Christiano CALVIN, Dr. Wesley Attending Provider Norris MARSHALL, Dr. Bullock Referring Provider Norris MARSHALL, Dr. Bullock Emergency Provider Luan CALVIN, Dr. Izquierdo Admit Provider Luan CALVIN, Dr. Izquierdo Other Provider Rehan CALVIN, Dr. Feliz Tamayo Other Provider Josh ACLVIN, Dr. David Attending Provider Josh CALVIN, Dr. David Other Provider [phone] Norris MARSHALL, Dr. Bullock Attending Provider [phone] Rehan CALVIN, Dr. Feliz Tamayo Referring Provider Dr. Renato Brunson MD Attending Provider Boy CALVIN, Dr. Gross Referring Provider [phone] PRAKASH ZHAO Primary Care Unavailable GIRMA BOYD Attending Unavailable Dr. Renato Brunson MD Referring Provider Vidhi CLAIM AGENT-C, Mitali Referring Provider [phone] Felecia Roland Consulting Unavailable Care Physician, No Primary Primary Care Unava ilYvette Greenwood Attending Unavailable Felecia Roland Admitting Unavailable Yuriy Ding Consulting UnavailFelecia Morgan Admitting Unavailable Feliz Van Consulting Unavailable Mitali Mosher Primary Care Unavailable Frankie Moreno Attending Unavailable Felecia Roland Consulting Unavailable Feliz Van Referring Unavailable Mitali Mosher Primary Care Unavailable Renato Brunson Attending Unavailable Mitali Mosher Primary Care Unavailable Praterri, Renato Referring Unavailable Prah, Renato Attending Unavailable Boy, Renato Attending Unavailable Prah, Renato Referring Unavailable Mitali Mosher Primary Care Unavailable Vidhi, Mitali Primary Care Unavailable Prah, Renato Referring Unavailable Praterri, Renato Attending Unavailable Kobe Pisano Attending Unavailable Vidhi, Mitali Primary Care Unavailable Vidhi, Mitali Primary Care Unavailable AlvaradoLupillo Attending Unavailable Boy, Renato Attending Unavailable Vidhi, Mitali Primary Care Unavailable Vidhi, Mitali Referring Unavailable Prah, Renato Attending Unavailable Vidhi, Mitali Primary Care Unavailable Vidhi, Mitali Referring Unavailable PisanoKobe chen Referring Unavailable Kobe Pisano Attending Unavailable Vidhi, Mitali Primary Care Unavailable Care Physician, No Primary Primary Care Unava ilable AlvaradoLupillo Attending Unavailable Praterri, Renato Attending Unavailable Vidhi, Mitali Primary Care Unavailable Vidhi, Mitali Referring Unavailable Felecia Roland Admitting Unavailable Felecia Roland Attending Unavailable Vidhi, Mitali Primary Care Unavailable Felecia Roland Consulting Unavailable Luan, Felecia Admitting Unavailable Feliz Van Consulting Unavailable Vidhi, Mitali Primary Care Unavailable Franike Moreno Attending Unavailable Felecia Roland Consulting Unavailable Frankie Moreno Consulting Unavailable Felecia Roland Attending Unavailable Felecia Roland Consulting Unavailable Care Physician, No Primary Primary Care Unava ilable Felecia Roland Admitting Unavailable Yuriy Ding Consulting UnavailYvette Eisenberg Attending Unavailable Yvette Nieto Consulting Unavailable Care Physician, No Primary Primary Care Unava ilable Jacques Paul Attending Unavailable Medications Current Medications Medication Drug [...] 30 tab(s), 0 Refill(s), Pharmacy: [facility]/pharmacy #[id number], Right wrist pain, 175, cm, 08/11/24 13:41:00 [...] area once daily. 85 g 01/29/2024 Active [place] (Nk) (5 sources) Start: 04-04-2025 [place] (Nk) Active April 04, 2025 12:00am ondansetron [...] / HYDROcodone bitartrate 5 mg oral tablet (9 sources) Opioid Agonist Start: 03-05-2025 End: 03-27-2025 Hydrocodone-Acetam inophen 5-325 mg tablet Discontinued 1 {tbl} PO EVERY 6 HOURS NEEDED as needed for Pain 12 3 0 March 05, 2025 March 27, 2025 1:57pm Pain in right testicle Right testicular pain amoxicillin 875 mg / clavulanate 125 mg oral tablet (11 sources) Penicillin-class Antibacterial Start: 06-02-2024 End: 01-29-2025 [...] Active docusate sodium 50 mg / sennosides, halfway 8.6 mg oral tablet (12 sources) Start: 03-07-2025 End: 03-27-2025 Sennosides-Docusate Sodium (Stimulant Laxative Plus) 8.6-50 mg Tablet Discontinued 2 {tbl} PO TWICE DAILY NEEDED as needed for Constipation 0 March 07, 2025 12:00am March 27, 2025 1:57pm Available vmio-vme-emjchua pain Start: 06-18-2022 take 2 tablets by mo [facility] once daily as needed for constipation sennosides-docusate [...] 90 tab(s), 0 Refill(s), Pharmacy: [facility]/pharmacy #[id number], Anxiety, 175, cm, 08/11/24 13:41:00 [...] mg ondansetron 4 mg disintegrating oral tablet (12 sources) Serotonin-3 Receptor Antagonist Start: 03-05-20 End: [...] Active oxyCODONE hydrochloride 5 mg oral tablet (14 sources) Opioid Agonist Start: 06-02-2024 End: 01-29-2025 [...] IVPB extended infusion (premix) polyethylene glycol 3350 06828 mg powder for oral solution (1 source) Osmotic Laxative Start: 06-17-2022 17 g, Oral, DAILY, First dose on Thu06/17/22 at 1045, Until Discontinued Stir and dissolve one packet of powder (17 g) in any 4 to 8 ounces of beverage (cold, hot or room temperature) then drink predniSONE 20 mg oral tablet (13 sources) Start: 05-27-2024 End: 06-02-2024 take 2 [...] Status: Ordered sertraline 25 mg oral tablet (13 sources) Serotonin Reuptake Inhibitor Start: 01-29-2025 End: 03-05-2025 take 1 tablet by mouth at bedtime Sertraline (Zoloft) 25 mg tablet Discontinued 25 mg PO AT BEDTIME 30 January 29, 2025 12:00am March 05, 2025 3:28pm Start: 09-28-2024 End: 10-28-2024 sertraline 25 mg oral tablet Dose : 25 mg = 1 tab(s), Oral, qDay, # 30 tab(s), 0 Refill(s), Pharmacy: [facility]/pharmacy #[id number], Generalized anxiety disorder, 173.3, cm, 09/28/24 15:05:00 [...] Da te Episodic/Chronic Acute and chronic tonsillitis (11 sources) Acute tonsillitis; Translations: [Acute tonsillitis, unspecified] 06-02-2024 Episodic Anxiety disorders (4 sources) Generalized anxiety disorder; Translations: [Mixed anxiety and depressive disorder] Onset: 5 09-28-2024 Chronic Cancer of testis (20 sources) [...] Chemotherapy. My recommendation is observation. Pt agreed. 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 Low risk diseaseDiscussed non-seminomatous testicular cancer.CT c/a/p showed Lung nodules, no adenopathy. He had Lung nodules in 2021. No evidence of disease clinically.Discussed preferred management which is observation, RPLND and Chemotherapy again. My recommendation is observation. Pt agreed. Chronic obstructive pulmonary disease and bronchiectasis (1 source) Bronchitis; Translations: [Bronchitis, not specified as acute or chronic] Onset: 3 Episodic Diseases of white blood cells (12 sources) Leukocytosis; Translations: [Elevated white blood cell [...] [Other fatigue] Onset: 2 Episodic Mood disorders (11 sources) Depressive disorder; Translations: [Depression] 01-29-2025 Chronic [...] other orthopedic aftercare] Episodic Other circulatory disease (11 sources) Elevated blood-pressure reading without diagnosis of [...] cough] 03-18-2024 Episodic Other lower respiratory disease (15 sources) Multiple nodules of lung; Translations: [Other [...] Onset: 5 Episodic Other male genital disorders (18 sources) Testicular mass; Translations: [Other specified disorders of the male genital organs] 03-04-2025 Episodic Other male genital disorders (18 sources) Pain of right testicle; Translations: [Right [...] Onset: 2 Episodic Other upper respiratory infections (16 sources) Sore throat symptom; Translations: [Acute pharyngitis, unspecified] Onset: 5 Episodic Residual codes; unclassified (1 source) Early satiety; Translations: [Early satiety] Episodic Residual codes; unclassified (6 sources) History of alcohol abuse; Translations: [Personal history of other specified conditions] Onset: 4 03-03-2024 Episodic Residual codes; unclassified (14 sources) Confusional state; Translations: [Disorientation, unspecified] 04-04-2025 Episodic Comment on above: MRI brain was negati ve. Spondylosis; intervertebral disc disorders; other back problems (3 sources) Nerve root disorder; Translations: [Radiculopathy, site unspecified] Onset: 5 Episodic Substance-related disorders (8 sources) Tobacco user; Translations: [Nicotine dependence, unspecified, uncomplicated] Onset: 4 03-03-2024 Chronic Suicide and intentional self-inflicted injury (12 sources) Suicidal thoughts; Translations: [Suicidal ideations] 01-29-2025 Episodic Unclassified (1 source) Contact with and (suspected) exposure to COVID-19; Translations: [Contact with and (suspected) exposure to COVID-19] Onset: 2 Unclassified (2 sources) Injury of right wrist 09-28-2024 Viral infection (15 sources) Viral disease; Translations: [Viral infection, unspecified] Onset: 5 02-29-2024 Episodic Past or Other Problems Problem Classification Problem Date Documented Da te Episodic/Chronic Residual codes; unclassified (2 sources) Personal history of other specified conditions; 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, in remission] Onset: 03-03-2024 03-03-2024 Episodic Skin and subcutaneous tissue infections (12 sources) Abscess of neck; Translations: [Cutaneous abscess of neck] Onset: 06-02-2024 06-04-2024 Episodic Unclassified (1 source) Contact with and (suspected) exposure to COVID-19; Translations: [Contact with and (suspected) exposure to COVID-19] Onset: 06-21-2022 Results Test Name Value Interpretation Reference Range Facility Absolute lymphocyte countOrd ered By: Kobe Pisano on 05-11-2025 Lymphocytes Auto (Unsp spec) [#/Vol] 1.96 10*3/uL 0.83-4.51 [facility] Absolute neutrophil countOrd ered By: Kobe Pisano on 05-11-2025 Neutrophils (Bld) [#/Vol] 3.3 10*3/uL 2.0-7.7 [facility] Alcohol, Blood (Medical)-Ser umon 05-11-2025 SERUM ETOH < 10.1 Normal <=10.0 [facility] Comment on above: Result Comment: This test is for medical purposes only. The legal definition of intoxication varies according to local law. Performed By: #### L 100.0100, L501.9100, L500.2500, L505.5000 ####[facility] [id number] [facility]. [place], [place], [address] Amphetamine detection with 1 000 ng/mL as cutoffOrdered By: Kobe Pisano on 05-11-2025 Amphetamines Screen method >1000 ng/mL Ql (U) Negative < 200 ng/mL [facility] Anion gap in Serum or Plasma Ordered By: Kobe Pisano on 05-11-2025 Anion gap [Moles/Vol] 11 mmol/L 5-[address] [facility] Automated lymphocyte count a s percentage of total leukocytesOrdered By: Kobe Pisano on 05-11-2025 Lymphocytes/100 WBC Auto (Unsp spec) 30.8 % 19-41 [facility] BUN/creatinine ratioOrdered By: Kobe Pisano on 05-11-2025 Urea nitrogen/Creatinine [Mass ratio] 17.7 mg/mg - [facility] Basic Metabolic Profile (BMP )on 05-11-2025 BUN/CRE 17.7 RATIO Normal - [facility] Comment on above: Performed By: #### L 100.0100, L501.9100, L500.2500, L505.5000 #### [facility] [address] [place], [address] Calcium [Mass/Vol] 9.4 mg/dL Normal 7.6-11.0 [facility] Comment on above: Performed By: #### L 100.0100, L501.9100, L500.2500, L505.5000 #### [facility] [address] [place], [address] Chloride [Moles/Vol] 101 mmol/L Normal 98-108 [facility] Comment on above: Performed By: #### L 100.0100, L501.9100, L500.2500, L505.5000 #### [facility] [address] [place], [address] CO2 [Moles/Vol] 25.9 mmol/L Normal 21.0-32.0 [facility] Comment on above: Performed By: #### L 100.0100, L501.9100, L500.2500, L505.5000 #### [facility] [address] [place], [address] Creatinine [Mass/Vol] 0.84 mg/dL Normal 0.70-1.[address] [facility] Comment on above: Performed By: #### L 100.0100, L501.9100, L500.2500, L505.5000 #### [facility] [address] [place], [address] ECRCL 133.45 ml/min Normal 50-250 [facility] Comment on above: Performed By: #### L 100.0100, L501.9100, L500.2500, L505.5000 #### [facility] [address] [place], [address] GAP 11 Normal 5-15 [facility] Comment on above: Performed By: #### L 100.0100, L501.9100, L500.2500, L505.5000 #### [facility] [address] [place], [address] GFR/1.73 sq M.predicted among non-blacks MDRD (S/P/Bld) [Vol rate/Area] 126 mL/min/{1.73_m2} Normal >60 [facility] Comment on above: Result Comment: mL/m in/1.73m2 CKD-EPI Creatinine Equation (2020) Performed By: #### L 100.0100, L501.9100, L500.2500, L505.5000 #### [facility] [address] [place], [address] Glucose [Mass/Vol] 79 mg/dL Normal 70-99 [facility] [place] Comment on above: Performed By: #### L 100.0100, L501.9100, L500.2500, L505.5000 #### [facility] [address] [place], [address] Potassium [Moles/Vol] 4.2 mmol/L Normal 3.3-5.[address] [facility] Comment on above: Performed By: #### L 100.0100, L501.9100, L500.2500, L505.5000 #### [facility] [address] [place], [address] Sodium [Moles/Vol] 138 mmol/L Normal 133-145 [facility] Comment on above: Performed By: #### L 100.0100, L501.9100, L500.2500, L505.5000 #### [facility] [address] [place], [address] Urea nitrogen [Mass/Vol] 15 mg/dL Normal 4-19 [facility] Comment on above: Performed By: #### L 100.0100, L501.9100, L500.2500, L505.5000 #### [facility] [address] [place], [address] Basophil percentageOrdered B y: Kobe Pisano on 05-11-2025 Basophils/100 WBC (Bld) 1.4 % High 0-1 [facility] CBC W/Diff, Automatedon Absolute Lymph 1.96 X10 3/uL Normal 0.83-4.51 [facility] Comment on above: Performed By: #### L 100.0100, L501.9100, L500.2500, L505.5000 #### [facility] [address] [place], [address] Absolute Neut 3.3 X10 3/uL Normal 2.0-7.7 [facility] Comment on above: Performed By: #### L 100.0100, L501.9100, L500.2500, L505.5000 #### [facility] [address] [place], [address] Basophils/100 WBC (Bld) 1.4 % High 0-1 [facility] Comment on above: Performed By: #### L 100.0100, L501.9100, L500.2500, L505.5000 #### [facility] [address] [place], [address] Eosinophils/100 WBC (Bld) 4.1 % Normal 0-5 [facility] Comment on above: Performed By: #### L 100.0100, L501.9100, L500.2500, L505.5000 #### [facility] [address] [place], [address] Erythrocyte distribution width (RBC) [Ratio] 12.6 % Normal 11.6-14.6 [facility] Comment on above: Performed By: #### L 100.0100, L501.9100, L500.2500, L505.5000 #### [facility] [address] [place], [address] Hematocrit (Bld) [Volume fraction] 38.6 % Low 40-54 [facility] Comment on above: Performed By: #### L 100.0100, L501.9100, L500.2500, L505.5000 #### [facility] [address] [place], [address] Hemoglobin (Bld) [Mass/Vol] 13.4 g/dL Normal 13.0-16.5 [facility] Comment on above: Performed By: #### L 100.0100, L501.9100, L500.2500, L505.5000 #### [facility] [address] [place], [address] IG% 0.300 Normal 0.0-0.9 [facility] Comment on above: Result Comment: IG% - Immature Granulocytes (promyelocytes, myelocytes and metamyelocytes) > 1% indicates that a LEFT SHIFT is Present. Performed By: #### L 100.0100, L501.9100, L500.2500, L505.5000 #### [facility] [address] [place], [address] Lymphocytes/100 WBC (Bld) 30.8 % Normal 19-41 [facility] Comment on above: Performed By: #### L 100.0100, L501.9100, L500.2500, L505.5000 #### [facility] [address] [place], [address] MCH (RBC) [Entitic mass] 28.3 pg Normal 27.0-32.0 [facility] Comment on above: Performed By: #### L 100.0100, L501.9100, L500.2500, L505.5000 #### [facility] [address] [place], [address] MCHC (RBC) [Mass/Vol] 34.7 g/dL Normal 32-[address] [facility] Comment on above: Performed By: #### L 100.0100, L501.9100, L500.2500, L505.5000 #### [facility] [address] [place], [address] MCV (RBC) [Entitic vol] 81.4 fL Normal 80-94 [facility] Comment on above: Performed By: #### L 100.0100, L501.9100, L500.2500, L505.5000 #### [facility] [address] [place], [address] Monocytes/100 WBC (Bld) 11.3 % High 0-10 [facility] Comment on above: Performed By: #### L 100.0100, L501.9100, L500.2500, L505.5000 #### [facility] [address] [place], [address] Neutrophils/100 WBC (Bld) 52.1 % Normal 47-70 [facility] Comment on above: Performed By: #### L 100.0100, L501.9100, L500.2500, L505.5000 #### [facility] [address] [place], [address] Nucleated RBC (Bld) [#/Vol] 0 10*3/uL Normal 0-5 [facility] Comment on above: Performed By: #### L 100.0100, L501.9100, L500.2500, L505.5000 #### [facility] [address] [place], [address] Platelet mean volume (Bld) [Entitic vol] 9.5 fL Normal 6.2-12.0 [facility] Comment on above: Performed By: #### L 100.0100, L501.9100, L500.2500, L505.5000 #### [facility] [address] [place], [address] Platelets (Bld) [#/Vol] 340 10*3/uL Normal 150-450 [facility] Comment on above: Performed By: #### L 100.0100, L501.9100, L500.2500, L505.5000 #### [facility] [address] [place], [address] RBC (Bld) [#/Vol] 4.74 10*6/uL Normal 4.6-6.2 [facility] Comment on above: Performed By: #### L 100.0100, L501.9100, L500.2500, L505.5000 #### [facility] [address] [place], [address] RDW SD 37.6 fl Normal 35.1-43.9 [facility] Comment on above: Performed By: #### L 100.0100, L501.9100, L500.2500, L505.5000 #### [facility] [address] [place], [address] WBC (Bld) [#/Vol] 6.4 10*3/uL Normal 4.4-11.0 [facility] Comment on above: Performed By: #### L 100.0100, L501.9100, L500.2500, L505.5000 #### [facility] [address] [place], [address] Carbon dioxide, total [Moles /volume] in Central venous bloodOrdered By: Kobe Pisano on 05-11-2025 CO2 [Moles/Vol] 25.9 mmol/L 21.0-32.0 [facility] Chloride assayOrdered By: Aleksandr Pisano on 05-11-2025 Chloride [Moles/Vol] 101 mmol/L 98-108 [facility] Emergency Department Summary on 05-11-2025 [facility] [address] [place] [address] Emergency Department Summary 05/11/25 MR#: [id number] Acct: [id number] Name: JESSICA BARR Rep #: [id number] : 2005 20 From: Kobe Pisano DO PCP: ALEJANDRO Brown Status:REG ER Location: ED HPI History of Present Illness Chief Complaint: Suicidal Narrative Narrative: Patient is a 20-year-old male with past medical history anxiety, depression who presented to the emergency department with a chief complaint of suicidal ideation. Patient today had thoughts of killing himself with a gun and he states that he left work wrote a suicide note prior to this and that took one of his guns with him to a fishing hole. He states that after thinking about this he decided to come here to be evaluated further. He states that he does not have much support and has lost several family members recently as well. [facility] Medical History Pain in right testicle Smoker Depression Anxiety Home Medications ???Medication ???Instructions ???Recorded ???Last Taken ???Type NK 04/04/25 Unknown History Allergy/AdvReac Type Severity Reaction Status Date / Time No Known Allergies Allergy Verified 05/11/25 13:16 Family History Grandmother Breast cancer Aunt Breast cancer Uncle Cancer Surgical History Status post open reduction and internal fixation (ORIF) of fracture Social History Smoking Status: Current every day smoker tobacco type: cigarettes and e-cigarettes alcohol intake: current alcohol intake frequency: a few times a month substance use type: marijuana ROS ROS ED ROS Narrative Constitutional: Denies fevers, chills, headaches, lightness, dizziness Eyes: Denies double vision blurry vision changes vision Cardiovascular: Denies chest pain Respiratory: Denies shortness of breath Abdomen: Denies abdominal pain nausea vomit diarrhea : Denies any urinary symptoms Neurological: Denies numbness, weakness, tingling Musculoskeletal: Denies back pain Psychiatric: Complains of suicidal ideation as noted above denies homicidal ideation Skin: Denies any rashes or lesions EXAM Physical Exam Narrative Exam Narrative: General: Patient was lying in bed rest comfortably did not appear to be in acute distress Head: Atraumatic, normocephalic Eyes: PERRL bilaterally, EOMI bilaterally, no conjunctival injection noted Neck: Soft, supple, trachea midline Cardiovascular: Regular rate and rhythm no murmurs gallops rubs noted Respiratory: Clear to auscultation bilaterally no rales rhonchi or wheezes noted Abdomen: Soft, nondistended, no tenderness palpation Extremities: +5/5 strength noted in the bilateral lower extremities Neurological: Patient following commands knew that he was at [facility] year is 2024 Skin: Warm, dry, tact no rashes or lesions noted Const Vital Signs: 05/11/25 13:16 05/11/25 15:28 05/11/25 16:49 Temperature 98.4 F Temperature Source Oral Pulse Rate 84 87 60 Respiratory Rate 16 16 Blood Pressure 141/90 H 139/91 H 127/81 H Blood Pressure Mean 107 107 96 Pulse Ox 100 98 97 Oxygen Delivery Method Room Air Room Air Room Air MDM MDM MDM Narrative Medical decision making narrative: Patient is a 20-year-old male who presented to the emergency department the chief complaint of suicidal ideation. On the differential diagnose includes Melamin to anxiety, depression, suicidal ideation. Patient CBC reviewed showed no evidence leukocytosis white blood count normal at 6.4, hemoglobin 13.4, platelet count of 340. Patient sodium was 138, potassium normal 4.2, creatinine was noted to be normal at 0.84. Patient drug screen negative alcohol level less than 10. Patient medically cleared and will be placed into psychiatric facility for stabilization. Patient still pending placement will be signed out to oncoming provider for ultimate disposition see addendum further details. Lab Data Labs: Laboratory Results - last 24 hr 05/11/25 13:29 WBC 6.4 RBC 4.74 Hgb 13.4 Hct 38.6 L MCV 81.4 MCH 28.3 MCHC 34.7 RDW Std Deviation 37.6 RDW Coeff of Emigdio 12.6 Plt Count 340 MPV 9.5 Immature Gran % (Auto) 0.300 Neut % (Auto) 52.1 Lymph % (Auto) 30.8 [place] % (Auto) 11.3 H Eos % (Auto) 4.1 Baso % (Auto) 1.4 H Absolute Neuts (auto) 3.3 Absolute Lymphs (auto) 1.96 Nucleated RBC % 0 Sodium 138 Potassium 4.2 Chloride 101 Carbon Dioxide 25.9 Anion Gap 11 BUN 15 Creatinine 0.84 Estim Creat Clear Calc 133.45 Est GFR (M (more content not included)... Normal [facility] Eosinophil percentageOrdered By: Kobe Pisano on 05-11-2025 Eosinophils/100 WBC (Bld) 4.1 % 0-5 [facility] Erythrocyte distribution wid th ratioOrdered By: Kobe Pisano on 05-11-2025 Erythrocyte distribution width (RBC) [Ratio] 12.6 % 11.6-14.6 [facility] Erythrocyte distribution wid th standard deviationOrdered By: Kobe Pisano on 05-11-2025 Erythrocyte distribution width (RBC) [Ratio] 37.6 fl 35.1-43.9 [facility] Glomerular filtration rate ( GFR) estimation/1.73 sq m using serum, plasma, or whole bOrdered By: Kobe Pisano on 05-11-2025 GFR/1.73 sq M.predicted among non-blacks MDRD (S/P/Bld) [Vol rate/Area] 126 mL/min/{1.73_m2} >60 [facility] Comment on above: mL/min/1.73m2 CKD-EP I Creatinine Equation (2020) Hematocrit Auto (Bld) [Volum e fraction]Ordered By: Kobe Pisano on 05-11-2025 Hematocrit (Bld) [Volume fraction] 38.6 % Low 40-54 [facility] Hemoglobin measurementOrdere d By: Kobe Pisano on 05-11-2025 Hemoglobin (Bld) [Mass/Vol] 13.4 g/dL 13.0-16.5 [facility] Immature granulocytes/100 WB C Auto (Bld)Ordered By: Kobe Pisano on 05-11-2025 Immature granulocytes/100 WBC (Bld) 0.300 % 0.0-0.9 [facility] Comment on above: IG% - Immature Granu locytes (promyelocytes, myelocytes and metamyelocytes) > 1% indicates that a LEFT SHIFT is Present. MCV (mean corpuscular volume ) determinationOrdered By: Kobe Pisano on 05-11-2025 MCV (RBC) [Entitic vol] 81.4 fL 80-94 [facility] Mean corpuscular hemoglobin (MCH) determinationOrdered By: Kobe Pisano on 05-11-2025 MCH (RBC) [Entitic mass] 28.3 pg 27.0-32.0 [facility] Mean corpuscular hemoglobin concentration (MCHC) determinationOrdered By: Kobe Pisano on 05-11-2025 MCHC (RBC) [Mass/Vol] 34.7 g/dL 32-[address] [facility] Mean platelet volume determi nationOrdered By: Kobe Pisano on 05-11-2025 Platelet mean volume (Bld) [Entitic vol] 9.5 fL 6.2-12.0 [facility] Monocyte percentageOrdered B y: Kobe Pisano on 05-11-2025 Monocytes/100 WBC (Bld) 11.3 % High 0-10 [facility] Neutrophil percentageOrdered By: Kobe Pisano on 05-11-2025 Neutrophils/100 WBC (Bld) 52.1 % 47-70 [facility] No Panel InformationOrdered By: Kobe Pisano on 05-11-2025 Urine Buprenorphine Qualitative Negative < 200 ng/mL [facility] Urine Oxycodone Screen Negative < 100 ng/mL [facility] Nucleated red blood cell per centageOrdered By: Kobe Pisano on 05-11-2025 Nucleated RBC/100 WBC (Bld) [Ratio] 0 % 0-5 [facility] Platelet countOrdered By: Aleksandr Pisano on 05-11-2025 Platelets (Bld) [#/Vol] 340 10*3/uL 150-450 [facility] Potassium measurement (mass/ volume)Ordered By: Kobe Pisano on 05-11-2025 Potassium (Unsp spec) [Mass/Vol] 4.2 mmol/L 3.3-5.1 [facility] Quantitative urine opiates m easurementOrdered By: Kobe Pisano on 05-11-2025 Opiates Ql (U) Negative < 300 ng/mL [facility] RBC Auto (Bld) [#/Vol]Ordere d By: Kobe Pisano on 05-11-2025 RBC (Bld) [#/Vol] 4.74 10*6/uL 4.6-6.2 [facility] Screening urine fentanyl suleman surementOrdered By: Kobe Pisano on 05-11-2025 fentaNYL Screen Ql (U) Negative <5 ng/mL [facility] Comment on above: CONFIRMATORY TESTING FOR ALL POSITIVE URINE DRUG SCREENRESULTS WILL ONLY BE SENT OUT UPON PHYSICIAN ORDER. [facility] Urine Drug Screen methods provide only preliminaryanalytical test results. A more specific alternate chemicalmethod must be used in order to obtain a confirmedanalytical result. Gas chromatography/mass spectrometery(GC/MS) is the preferred confirmatory method. Clinicalconsideration and professional judgement should be appliedto any drug of abuse test result, particularly whenpreliminary positive results are used. Urine TCA testing must be ordered separately. Use test mnemonic: [facility] Serum creatinine measurement (mass/volume)Ordered By: Kobe Pisano on 05-11-2025 Creatinine [Mass/Vol] 0.84 mg/dL 0.70-1.[address] [facility] Serum glucose measurement (m ass/volume)Ordered By: Kobe Pisano on 05-11-2025 Glucose [Mass/Vol] 79 mg/dL 70-99 [facility] Serum or plasma calcium erica urement (mass/volume)Ordered By: Kobe Pisano on 05-11-2025 Calcium [Mass/Vol] 9.4 mg/dL 7.6-11.0 [facility] Serum or plasma ethanol erica urement (mass/volume)Ordered By: Kboe Pisano on 05-11-2025 Ethanol [Mass/Vol] mg/dL <10.1 [facility] Comment on above: This test is for med ical purposes only. The legal definition of intoxication varies according to local law. Serum or plasma urea nitroge n measurement (mass/volume)Ordered By: Kobe Pisano on 05-11-2025 Urea nitrogen [Mass/Vol] 15 mg/dL 4-19 [facility] Sodium levelOrdered By: Severo Pisano on 05-11-2025 Sodium [Moles/Vol] 138 mmol/L 133-145 [facility] Urine Drug Screen (VISTA)on 05-11-2025 AMPHETAMINES Negative Normal <1000 ng/mL [facility] Comment on above: Performed By: #### L 100.0100, L501.9100, L500.2500, L505.5000 ####[facility] [address] [facility] [address] BARBITIURATES Negative Normal < 200 ng/mL [facility] Comment on above: Performed By: #### L 100.0100, L501.9100, L500.2500, L505.5000 ####[facility] [address] [facility] [address] BENZODIAZIPINE Negative Normal < 200 ng/mL [facility] Comment on above: Performed By: #### L 100.0100, L501.9100, L500.2500, L505.5000 ####[facility] [address] [place] [address] BUP Ur Drug Scr Negative Normal < 200 ng/mL [facility] Comment on above: Performed By: #### L 100.0100, L501.9100, L500.2500, L505.5000 ####[facility] [address] [facility] [address] COCAINE Negative Normal < 300 ng/mL [facility] Comment on above: Performed By: #### L 100.0100, L501.9100, L500.2500, L505.5000 ####[facility] [address] [place] [address] Fentanyl Negative Normal <5 ng/mL [facility] Comment on above: Result Comment: CONF IRMATORY TESTING FOR ALL POSITIVE URINE DRUG SCREEN RESULTS WILL ONLY BE SENT OUT UPON PHYSICIAN ORDER. [facility] Urine Drug Screen methods provide only preliminary analytical test results. A more specific alternate chemical method must be used in order to obtain a confirmed analytical result. Gas chromatography/mass spectrometery (GC/MS) is the preferred confirmatory method. Clinical consideration and professional judgement should be applied to any drug of abuse test result, particularly when preliminary positive results are used. Urine TCA testing must be ordered separately. Use test mnemonic: [facility] Performed By: #### L 100.0100, L501.9100, L500.2500, L505.5000 ####[facility] [address] [place], [address] METHADONE Negative Normal < 300 ng/mL [facility] Comment on above: Performed By: #### L 100.0100, L501.9100, L500.2500, L505.5000 ####[facility] [address] [facility] [address] OPIATES Negative Normal < 300 ng/mL [facility] Comment on above: Performed By: #### L 100.0100, L501.9100, L500.2500, L505.5000 ####[facility] [address] [place] [address] OXYCODONE Negative Normal < 100 ng/mL [facility] Comment on above: Performed By: #### L 100.0100, L501.9100, L500.2500, L505.5000 ####[facility] [address] [place], [place], [phone] PCP Negative Normal < 25 ng/mL [facility] Comment on above: Performed By: #### L 100.0100, L501.9100, L500.2500, L505.5000 ####[facility] [address] [place] [address] THC Negative Normal < 50 ng/mL [facility] Comment on above: Performed By: #### L 100.0100, L501.9100, L500.2500, L505.5000 ####[facility] [address] [facility] [address] Urine benzodiazepine levelOr dered By: Kobe Pisano on 05-11-2025 Benzodiazepines Ql (U) Negative < 200 ng/mL [facility] Urine cocaine levelOrdered B y: Kobe Pisano on 05-11-2025 Cocaine Ql (U) Negative < 300 ng/mL [facility] Urine imrgk-8-cskilrluoeayfg abinol (THC) measurementOrdered By: Kobe Pisano on 05-11-2025 Cannabinoids Screen Ql (U) Negative < 50 ng/mL [facility] Urine phencyclidine (PCP) de tectionOrdered By: Kobe Pisano on 05-11-2025 Phencyclidine Ql (U) Negative < 25 ng/mL [facility] White blood cell (WBC) count Ordered By: Kobe Pisano on 05-11-2025 WBC (Bld) [#/Vol] 6.4 10*3/uL 4.4-11.0 [facility] AFP, Tumor Markeron 05-04-20 25 AFP TUMOR ANGELA 2.4 ng/mL Normal 0.0-5.7 [facility] Comment on above: Order Comment: N Result Comment: [facility] [employer] Electrochemiluminescence Immunoassay (ECLIA) Values obtained with different assay methods or kits cannot be used interchangeably. Results cannot be interpreted as absolute evidence of the presence or absence of malignant disease. This test is not interpretable in females. Performed at: [employer] [id number] Aquatic Ecologist: Luis Rubio PhD, Phone: [phone] Performed By: #### L 3300.0700, L557.2610, L3156.8270 ####[facility] [address] [place], [address] HCG BETA-SUBUNIT QUANT.on HCG B-SUBUNIT < 1 Normal 0-3 [facility] Comment on above: Result Comment: [facility] ECLIA methodology Performed at: [facility] [employer] [id number] Aquatic Ecologist: Luis Rubio PhD, Phone: [phone] Performed By: #### L 3300.0700, L504.2610, L3576.5140 ####[facility] [address] [place], [address] LDHon 05-03-2025 LDH 154 U/L Normal 87-241 [facility] Comment on above: Order Comment: 1 Performed By: #### L 3300.0700, L504.2610, L3100.5140 ####[facility] [address] [place], [address] Lactate dehydrogenase (LDH) measurementOrdered By: Renato Brunson on 05-03-2025 LDH [Catalytic activity/Vol] 154 U/L 87-241 [facility] Oncology Visit Reporton 04-08 Oncology Visit Report [facility] [address] [place] [address] OFFICE VISIT Date of Service: 05/03/25901 MR#: [id number] Acct: [id number] Name: JESSICA BARR Rep #: [id number] : 2005 From: Renato Brunson MD Age/Sex: 20/M Location: [facility] Status: Signed HPI Subjective Date of Service 05/03/25 Chief Complaint F/u for Testicular cancer. History of Present Illness 20-year-old man presented to the [facility] ER with right testicular pain. Ultrasound [...] to discuss disease and chemotherapy. Feeling well. [facility] Medical History Pain in right testicle Smoker [...] Months 05/03/25 1732 Date Renato Brunson MD Cosign Signature: Date (if applicable) CC: ALEJANDRO Mosher Normal [facility] Oncology Visit Reporton Oncology Visit Report [facility] [address] [place] [address] OFFICE VISIT Date of Service: 04/11/25 1412 MR#: [id number] Acct: [id number] Name: JESSICA BARR Rep #: [id number] : 2005 From: Renato Brunson MD Age/Sex: 19/M Location: [facility] Status: Signed HPI Subjective Date of Service 04/11/25 Chief Complaint F/u for Testicular cancer. History of Present Illness 19-year-old man presented to the [facility] ER with right testicular pain. Ultrasound [...] requested, comes for follow up. Feeling well. [facility] Medical History Pain in right testicle Smoker [...] descended or undescended HCG BETA-SUBUNIT QUANT. 04/26/25 C62.91 - Malignant neoplasm of right testis, unspecified whether descended or undescended LDH 04/26/25 C62.91 - Malignant neoplasm of right testis, unspecified whether descended or undescended Plan Details Follow Up: 3 Weeks 04/11/25 1825 Date Renato [place] Signature: Date (if applicable) CC: CLAIM AGENT-C Mitali Mosher; Dr. Feliz Van MD Normal [facility] AFP, Tumor Markeron 04-06-20 AFP TUMOR ANGELA 6.6 ng/mL High 0.0-5.7 [facility] Comment on above: Order Comment: NN Result Comment: [facility] Electrochemiluminescence Immunoassay (ECLIA) Values obtained with different assay methods or kits cannot be used interchangeably. Results cannot be interpreted as absolute evidence of the presence or absence of malignant disease. This test is not interpretable in females. Performed at: [address] [id number] Aquatic Ecologist: Luis Rubio PhD, Phone: [phone] Performed By: #### L 100.0100, L500.2500 #### [facility] [address] [place] [address], [address] HCG BETA-SUBUNIT QUANT.on HCG B-SUBUNIT < 1 Normal 0-3 [facility] Comment on above: Result Comment: [facility] ECLIA methodology Performed at: [address] [id number] Aquatic Ecologist: Luis Rubio PhD, Phone: [phone] Performed By: #### L 100.0100, L500.2500 #### [facility] [address] [place], [place], [address] Brain W/WO Contraston 2024 Brain W/WO Contrast [facility] [address] [place] [id number] Brain W/WO Contrast MR#: [id number] Acct: [id number] Name: JESSICA BARR Rep #: [id number] : 2005 M 19 From: Chicho Schrader PCP: Mitali Mosher CLAIM AGENT-C Status: REG CLI Study: Brain W/WO Contrast Date of Exam: 04/05/25 Exam# [id number] Ordering Dr: Renato Brunson MD PROCEDURE: BRAIN [...] No intracranial abnormality is noted. Reading Location: [facility] CC: CLAIM AGENT-C Mitali Mosher; Dr. Renato Brunson MD Panel Gluer: Signed Normal [facility] Magnetic resonance imaging r eportOrdered By: Chicho Brunner on 04-05-2025 Study [address] [facility] Imaging Services [address] [place] [address] Brain W/WO Contrast MR#: [id number] Acct: [id number] Name: JESSICA BARR Rep #: [id number] : 2005 M 19 From: Jasson Brunner MD PCP: Mitali Mosher, JUAN DANIELC Status: RE G CLI Study:Brain W/WO Contrast Date of Exam: 04/05/25 Exam# [id number] Ordering Dr: Hector Brunson MD PROCEDURE: BRAIN [...] No intracranial abnormality is noted. Reading Location: [place] [address] CC: ALEJANDRO Mosher; Dr. Renato Brunson MD ~ Panel Gluer: Signed [facility] LDHon 04-04-2025 LDH 171 U/L Normal 87-241 [facility] Comment on above: Order Comment: N1 Performed By: #### L 100.0100, L500.2500 #### [facility] [address] [place], [address] Lactate dehydrogenase (LDH) measurementOrdered By: Renato Brunson on 04-04-2025 LDH [Catalytic activity/Vol] 171 U/L 87-241 [facility] Oncology Visit Reporton 03-08 Oncology Visit Report [facility] [address] [place] [address] OFFICE VISIT Date of Service: 04/04/25 1420 MR#: [id number] Acct: [id number] Name: JESSICA BARR Rep #: [id number] : 2005 From: Renato Brunson MD Age/Sex: 19/M Location: [facility] Status: Signed HPI Subjective Date of Service 04/04/25 Chief Complaint F/u for Testicular cancer. History of Present Illness 19-year-old man presented to the [facility] ER with right testicular pain. Ultrasound [...] confusion and lack of ability to concentrate. [facility] Medical History Pain in right testicle Smoker [...] in 2019. [facility] Orders: Orders LDH Today C62.91 - Malignant [...] Renato [place] Signature: Date (if applicable) CC: CLAIM AGENT-C Mitali Mosher Normal [facility] AFP, Tumor Markeron 04-01-20 25 AFP TUMOR ANGELA 11.0 ng/mL High 0.0-5.7 [facility] Comment on above: Order Comment: N Result Comment: [facility] Electrochemiluminescence Immunoassay (ECLIA) Values obtained with different assay methods or kits cannot be used interchangeably. Results cannot be interpreted as absolute evidence of the presence or absence of malignant disease. This test is not interpretable in females. Performed at: [address] [id number] Aquatic Ecologist: Luis Rubio PhD, Phone: [phone] Performed By: #### L 100.0100, L500.2500 #### [facility] [address] [place], [address] HCG BETA-SUBUNIT QUANT.on HCG B-SUBUNIT < 1 Normal 0-3 [facility] Comment on above: Result Comment: [facility]di [employer] ECLIA methodology Performed at: [facility] [id number] Aquatic Ecologist: Luis Rubio PhD, Phone: [phone] Performed By: #### L 100.0100, L500.2500 #### [facility] [address] [place], [address] Absolute lymphocyte countOrd ered By: Renato Brunson on 03-30-2025 Lymphocytes Auto (Unsp spec) [#/Vol] 1.74 10*3/uL 0.83-4.51 [facility] Absolute neutrophil countOrd ered By: Renato Brunson on 03-30-2025 Neutrophils (Bld) [#/Vol] 3.6 10*3/uL 2.0-7.7 [facility] Anion gap in Serum or Plasma Ordered By: Renato Brunson on 03-30-2025 Anion gap [Moles/Vol] 12 mmol/L 5-[address] [facility] Automated lymphocyte count a s percentage of total leukocytesOrdered By: Renato Brunson on 03-30-2025 Lymphocytes/100 WBC Auto (Unsp spec) 27.8 % 19-41 [facility] BUN/creatinine ratioOrdered By: Renato Brunson on 03-30-2025 Urea nitrogen/Creatinine [Mass ratio] 15.7 mg/mg 10-20 [facility] Basophil percentageOrdered B y: Renato Brunson on 03-30-2025 Basophils/100 WBC (Bld) 1.1 % High 0-1 [facility] Bilirubin, totalOrdered By: Renato Brunson on 03-30-2025 Bilirubin [Mass/Vol] 0.35 mg/dL 0.00-1.30 [facility] CBC W/Diff, Automatedon 03-08 Absolute Lymph 1.74 X10 3/uL Normal 0.83-4.51 [facility] Comment on above: Performed By: #### L 100.0100, L500.2500 #### [facility] [address] [place], [address] Absolute Neut 3.6 X10 3/uL Normal 2.0-7.7 [facility] Comment on above: Performed By: #### L 100.0100, L500.2500 #### [facility] [address] [place], [address] Basophils/100 WBC (Bld) 1.1 % High 0-1 [facility] Comment on above: Performed By: #### L 100.0100, L500.2500 #### [facility] [address] [place], [address] Eosinophils/100 WBC (Bld) 3.5 % Normal 0-5 [facility] Comment on above: Performed By: #### L 100.0100, L500.2500 #### [facility] [address] [place], [address] Erythrocyte distribution width (RBC) [Ratio] 12.5 % Normal 11.6-14.6 [facility] Comment on above: Performed By: #### L 100.0100, L500.2500 #### [facility] [address] [place], [address] Hematocrit (Bld) [Volume fraction] 39.4 % Low 40-54 [facility] Comment on above: Performed By: #### L 100.0100, L500.2500 #### [facility] [address] [place], [address] Hemoglobin (Bld) [Mass/Vol] 13.9 g/dL Normal 13.0-16.5 [facility] Comment on above: Performed By: #### L 100.0100, L500.2500 #### [facility] [address] [place], [address] IG% 0.300 Normal 0.0-0.9 [facility] Comment on above: Result Comment: IG% - Immature Granulocytes (promyelocytes, myelocytes and metamyelocytes) > 1% indicates that a LEFT SHIFT is Present. Performed By: #### L 100.0100, L500.2500 #### [facility] [address] [place], [address] Lymphocytes/100 WBC (Bld) 27.8 % Normal 19-41 [facility] Comment on above: Performed By: #### L 100.0100, L500.2500 #### [facility] [address] [place], [address] MCH (RBC) [Entitic mass] 29.2 pg Normal 27.0-32.0 [facility] Comment on above: Performed By: #### L 100.0100, L500.2500 #### [facility] [address] [place], [address] MCHC (RBC) [Mass/Vol] 35.3 g/dL Normal 32-[address] [facility] Comment on above: Performed By: #### L 100.0100, L500.2500 #### [facility] [address] [place], [address] MCV (RBC) [Entitic vol] 82.8 fL Normal 80-94 [facility] Comment on above: Performed By: #### L 100.0100, L500.2500 #### [facility] [address] [place], [address] Monocytes/100 WBC (Bld) 10.1 % High 0-10 [facility] Comment on above: Performed By: #### L 100.0100, L500.2500 #### [facility] [address] [place], [address] Neutrophils/100 WBC (Bld) 57.2 % Normal 47-70 [facility] Comment on above: Performed By: #### L 100.0100, L500.2500 #### [facility] [address] [place], [address] Nucleated RBC (Bld) [#/Vol] 0 10*3/uL Normal 0-5 [facility] Comment on above: Performed By: #### L 100.0100, L500.2500 #### [facility] [address] [place], [address] Platelet mean volume (Bld) [Entitic vol] 9.6 fL Normal 6.2-12.0 [facility] Comment on above: Performed By: #### L 100.0100, L500.2500 #### [facility] [address] [place], [address] Platelets (Bld) [#/Vol] 315 10*3/uL Normal 150-450 [facility] Comment on above: Performed By: #### L 100.0100, L500.2500 #### [facility] [address] [place], [address] RBC (Bld) [#/Vol] 4.76 10*6/uL Normal 4.6-6.2 [facility] Comment on above: Performed By: #### L 100.0100, L500.2500 #### [facility] [address] [place], [address] RDW SD 38.1 fl Normal 35.1-43.9 [facility] Comment on above: Performed By: #### L 100.0100, L500.2500 #### [facility] [address] [place], [address] WBC (Bld) [#/Vol] 6.3 10*3/uL Normal 4.4-11.0 [facility] Comment on above: Performed By: #### L 100.0100, L500.2500 #### [facility] [address] [place], [address] Carbon dioxide, total [Moles /volume] in Central venous bloodOrdered By: Renato Brunson on 03-30-2025 CO2 [Moles/Vol] 23.2 mmol/L 21.0-32.0 [facility] Chloride assayOrdered By: Mary Jo Brunson on 03-30-2025 Chloride [Moles/Vol] 103 mmol/L 98-108 [facility] Comprehensive Metabolic Prof ilon 03-30-2025 Albumin [Mass/Vol] 4.5 g/dL Normal 3.5-5.0 [facility] Comment on above: Performed By: #### L 100.0100, L500.2500 #### [facility] [address] [place], [address] Albumin/Globulin [Mass ratio] 1.8 {ratio} Normal 0.9-2.4 [facility] Comment on above: Performed By: #### L 100.0100, L500.2500 #### [facility] [address] [place], [address] ALK PHOS 82 U/L Normal 40-129 [facility] Comment on above: Performed By: #### L 100.0100, L500.2500 #### [facility] [address] [place], [address] ALT [Catalytic activity/Vol] 15 U/L Normal <=46 [facility] Comment on above: Performed By: #### L 100.0100, L500.2500 #### [facility] [address] [place], [address] AST [Catalytic activity/Vol] 21 U/L Normal <=37 [facility] Comment on above: Performed By: #### L 100.0100, L500.2500 #### [facility] [address] [place], [address] Bilirubin [Mass/Vol] 0.35 mg/dL Normal 0.00-1.30 [facility] Comment on above: Performed By: #### L 100.0100, L500.2500 #### [facility] [address] [place], [address] BUN/CRE 15.7 RATIO Normal 10-20 [facility] Comment on above: Performed By: #### L 100.0100, L500.2500 #### [facility] [address] [place], [address] Calcium [Mass/Vol] 9.5 mg/dL Normal 7.6-11.0 [facility] Comment on above: Performed By: #### L 100.0100, L500.2500 #### [facility] [address] [place], [address] Chloride [Moles/Vol] 103 mmol/L Normal 98-108 [facility] Comment on above: Performed By: #### L 100.0100, L500.2500 #### [facility] [address] [place], [address] CO2 [Moles/Vol] 23.2 mmol/L Normal 21.0-32.0 [facility] Comment on above: Performed By: #### L 100.0100, L500.2500 #### [facility] [address] [place], [address] Creatinine [Mass/Vol] 0.84 mg/dL Normal 0.70-1.[address] [facility] Comment on above: Performed By: #### L 100.0100, L500.2500 #### [facility] [address] [place], [address] GAP 12 Normal 5-15 [facility] Comment on above: Performed By: #### L 100.0100, L500.2500 #### [facility] [address] [place], [address] GFR/1.73 sq M.predicted among non-blacks MDRD (S/P/Bld) [Vol rate/Area] 127 mL/min/{1.73_m2} Normal >60 [facility] Comment on above: Result Comment: mL/m in/1.73m2 CKD-EPI Creatinine Equation (2020) Performed By: #### L 100.0100, L500.2500 #### [facility] [address] [place], [address] Globulin (S) [Mass/Vol] 2.5 g/dL Normal 2.2-4.2 [facility] Comment on above: Performed By: #### L 100.0100, L500.2500 #### [facility] [address] [place], [address] Glucose [Mass/Vol] 87 mg/dL Normal 70-99 [facility] Comment on above: Performed By: #### L 100.0100, L500.2500 #### [facility] [address] [place], [address] Potassium [Moles/Vol] 4.0 mmol/L Normal 3.3-5.[address] [facility] Comment on above: Performed By: #### L 100.0100, L500.2500 #### [facility] [address] [place], [address] Sodium [Moles/Vol] 139 mmol/L Normal 133-145 [facility] Comment on above: Performed By: #### L 100.0100, L500.2500 #### [facility] [address] [place], [address] T PROT 7.0 g/dL Normal 5.9-8.4 [facility] Comment on above: Performed By: #### L 100.0100, L500.2500 #### [facility] [address] [place], [address] Urea nitrogen [Mass/Vol] 13 mg/dL Normal 4-19 [facility] Comment on above: Performed By: #### L 100.0100, L500.2500 #### [facility] [address] [place], [address] Eosinophil percentageOrdered By: Renato Brunson on 03-30-2025 Eosinophils/100 WBC (Bld) 3.5 % 0-5 [facility] Erythrocyte distribution wid th ratioOrdered By: Renato Brunson on 03-30-2025 Erythrocyte distribution width (RBC) [Ratio] 12.5 % 11.6-14.6 [facility] Erythrocyte distribution wid th standard deviationOrdered By: Renato Brunson on 03-30-2025 Erythrocyte distribution width (RBC) [Ratio] 38.1 fl 35.1-43.9 [facility] Glomerular filtration rate ( GFR) estimation/1.73 sq m using serum, plasma, or whole bOrdered By: Renato Brunson on 03-30-2025 GFR/1.73 sq M.predicted among non-blacks MDRD (S/P/Bld) [Vol rate/Area] 127 mL/min/{1.73_m2} >60 [facility] Comment on above: mL/min/1.73m2 CKD-EP I Creatinine Equation (2020) Hematocrit Auto (Bld) [Volum e fraction]Ordered By: Renato Brunson on 03-30-2025 Hematocrit (Bld) [Volume fraction] 39.4 % Low 40-54 [facility] Hemoglobin measurementOrdere d By: Renato Brunson on 03-30-2025 Hemoglobin (Bld) [Mass/Vol] 13.9 g/dL 13.0-16.5 [facility] Immature granulocytes/100 WB C Auto (Bld)Ordered By: Renato Brunson on 03-30-2025 Immature granulocytes/100 WBC (Bld) 0.300 % 0.0-0.9 [facility] Comment on above: IG% - Immature Granu locytes (promyelocytes, myelocytes and metamyelocytes) > 1% indicates that a LEFT SHIFT is Present. LDHon 03-30-2025 LDH 155 U/L Normal 87-241 [facility] Comment on above: Order Comment: 1 Performed By: #### L 100.0100, L500.2500 #### [facility] [address] [place], [place], [address] Laboratory - Chemistry and C hemistry - challengeOrdered By: Renato Brunson on 03-30-2025 AST [Catalytic activity/Vol] 21 U/L <38 [facility] Lactate dehydrogenase (LDH) measurementOrdered By: Renato Brunson on 03-30-2025 LDH [Catalytic activity/Vol] 155 U/L 87-241 [facility] MCV (mean corpuscular volume ) determinationOrdered By: Renato Brunson on 03-30-2025 MCV (RBC) [Entitic vol] 82.8 fL 80-94 [facility] Magnesiumon 03-30-2025 Magnesium [Mass/Vol] 1.9 mg/dL Normal 1.5-2.2 [facility] Comment on above: Performed By: #### L 100.0100, L500.2500 #### [facility] [address] [place], [place], [address] Magnesium measurement (mass/ volume)Ordered By: Renato Brunson on 03-30-2025 Magnesium (Unsp spec) [Mass/Vol] 1.9 mg/dL 1.5-2.2 [facility] Mean corpuscular hemoglobin (MCH) determinationOrdered By: Renato Brunson on 03-30-2025 MCH (RBC) [Entitic mass] 29.2 pg 27.0-32.0 [facility] Mean corpuscular hemoglobin concentration (MCHC) determinationOrdered By: Renato Brunson on 03-30-2025 MCHC (RBC) [Mass/Vol] 35.3 g/dL 32-[address] [facility] Mean platelet volume determi nationOrdered By: Renato Brunson on 03-30-2025 Platelet mean volume (Bld) [Entitic vol] 9.6 fL 6.2-12.0 [facility] Monocyte percentageOrdered B y: Renato Brunson on 03-30-2025 Monocytes/100 WBC (Bld) 10.1 % High 0-10 [facility] Neutrophil percentageOrdered By: Renato Brunson on 03-30-2025 Neutrophils/100 WBC (Bld) 57.2 % 47-70 [facility] Nucleated red blood cell per centageOrdered By: Renato Brunson on 03-30-2025 Nucleated RBC/100 WBC (Bld) [Ratio] 0 % 0-5 [facility] Phosphoruson 03-30-2025 Phosphate [Mass/Vol] 4.1 mg/dL Normal 2.7-4.5 [facility] Comment on above: Performed By: #### L 100.0100, L500.2500 #### [facility] [address] [place] [place], [place], [address] Platelet countOrdered By: Mary Jo Brunson on 03-30-2025 Platelets (Bld) [#/Vol] 315 10*3/uL 150-450 [facility] Potassium measurement (mass/ volume)Ordered By: Renato Brunson on 03-30-2025 Potassium (Unsp spec) [Mass/Vol] 4.0 mmol/L 3.3-5.1 [facility] RBC Auto (Bld) [#/Vol]Ordere d By: Renato Brunson on 03-30-2025 RBC (Bld) [#/Vol] 4.76 10*6/uL 4.6-6.2 [facility] Serum creatinine measurement (mass/volume)Ordered By: Renato Brunson on 03-30-2025 Creatinine [Mass/Vol] 0.84 mg/dL 0.70-1.[address] [facility] Serum globulin measurementOr dered By: Renato Brunson on 03-30-2025 Globulin (S) [Mass/Vol] 2.5 g/dL 2.2-4.2 [facility] Serum glucose measurement (m ass/volume)Ordered By: Renato Brunson on 03-30-2025 Glucose [Mass/Vol] 87 mg/dL 70-99 [facility] Serum or plasma alanine duval otransferase (ALT) measurementOrdered By: Renato Brunson on 03-30-2025 ALT [Catalytic activity/Vol] 15 U/L <47 [facility] Serum or plasma albumin erica urement (mass/volume)Ordered By: Renato Brunson on 03-30-2025 Albumin [Mass/Vol] 4.5 g/dL 3.5-5.0 [facility] Serum or plasma albumin/glob ulin mass ratioOrdered By: Renato Brunson on 03-30-2025 Albumin/Globulin [Mass ratio] 1.8 {ratio} 0.9-2.4 [facility] Serum or plasma alkaline memo sphatase measurementOrdered By: Renato Brunson on 03-30-2025 ALP [Catalytic activity/Vol] 82 U/L 40-129 [facility] Serum or plasma calcium erica urement (mass/volume)Ordered By: Renato Brunson on 03-30-2025 Calcium [Mass/Vol] 9.5 mg/dL 7.6-11.0 [facility] Serum or plasma urea nitroge n measurement (mass/volume)Ordered By: Renato Brunson on 03-30-2025 Urea nitrogen [Mass/Vol] 13 mg/dL 4-19 [facility] Sodium levelOrdered By: Mark Brunson on 03-30-2025 Sodium [Moles/Vol] 139 mmol/L 133-145 [facility] Total proteinOrdered By: Hector Brunson on 03-30-2025 Protein [Mass/Vol] 7.0 g/dL 5.9-8.4 [facility] White blood cell (WBC) count Ordered By: Renato Brunson on 03-30-2025 WBC (Bld) [#/Vol] 6.3 10*3/uL 4.4-11.0 [facility] CT Chest, Abd, Pel w/Contras ton 03-28-2025 CT Chest, Abd, Pel w/Contrast [facility] Imaging Services [address] [place] [address] [address] [address] Chest, Abd, Pel w/Contrast MR#: [id number] Acct: [id number] Name: JESSICA BARR Rep #: [id number] : 2005 M 19 From: Mauricio Schraedr PCP: JUAN DANIEL BrownC Status: REG CLI Study: CT Chest, Abd, Pel w/Contrast Date of Exam: Exam# [id number] Ordering Dr: Renato Brunson MD PROCEDURE: CT [...] of metastatic disease. No lymphadenopathy. Reading Location: [id number] CC: ALEJANDRO Mosher; Dr. Renato Brunson MD Panel Gluer: Signed Normal [facility] Urine Cultureon 03-28-2025 URC Culture exhibits no growth. Normal [facility] Comment on above: Performed By: #### M 100.8490 ####[facility] [address] [place], [address] Amorphous sediment detection in urine sediment by light microscopyOrdered By: Renato Boy on 03-27-2025 Amorphous sediment LM Ql (Urine sed) 1+ [facility] Bilirubin Test strip Ql (U)O rdered By: Renato Brunson on 03-27-2025 Bilirubin Ql (U) Negative Negative [facility] CNPNon 03-27-2025 CNPN Telephone (HEMAPOB) -- JESSICA BARR ([id number]) 1 M Date Time Provider Department 03/27/25 CATH LAB TECH LAUREN During your visit today, we recorded the following information about you: Drew Marks 03/27/2025 3:38 PM Signed Received transferred call to office with request to schedule 2nd opinion consult at [facility]. Testicular biopsy completed at [facility] with urology. [place] [facility] consult completed today 03/27/2025. OP CT's [...] Encounter Status:Closed by DREW MARKS on 03/27/25 Normal [facility] Ketones Test strip Ql (U)Ord ered By: Renato Brunson on 03-27-2025 Ketones Ql (U) Negative Negative [facility] Microscopic analysis of urin e for red blood cells (RBC)Ordered By: Renato Brunson on 03-27-2025 Microscopic analysis of urine for red blood cells (RBC) 0-5 SEEN /hpf 0-5 [facility] Mucus LM Ql (Urine sed)Order ed By: Renato Brunson on 03-27-2025 Mucus Ql (Urine sed) 0 SEEN /hpf [facility] Nitrite Test strip Ql (U)Ord ered By: Renato Brunson on 03-27-2025 Nitrite Ql (U) Negative Negative [facility] Oncology Visit Reporton 03-08 Oncology Visit Report [facility] [place] [facility] [place] [address] OFFICE VISIT Date of Service: 03/27/25 1353 MR#: [id number] Acct: [id number] Name: JESSICA BARR Rep #: [id number] : 2005 From: Renato Brunson MD Age/Sex: 19/M Location: [facility] Status: Signed HPI Subjective Date of Service 03/27/25 Chief Complaint Referred for Testicular cancer. History of Present Illness 19-year-old man presented to the [facility] ER with right testicular pain. Ultrasound [...] in the lower abdomen with frequent urination. [facility] Medical History Pain in right testicle Smoker [...] (with % (more content not included)... Normal [facility] Protein Test strip Ql (U)Ord ered By: Renato Brunson on 03-27-2025 Protein Ql (U) Negative Negative [facility] Squamous epithelial cells de tection in urine sediment by light microscopyOrdered By: Renato Brunson on 03-27-2025 Epithelial cells.squamous LM Ql (Urine sed) 0-5 SEEN /hpf 0-5 [facility] Urinalysis, Completeon 03-27 AMORPHOUS 1+ Normal [facility] Comment on above: Order Comment: COLLE CTOR TO SPECIFY Performed By: #### L 100.0100, L500.2500 #### [facility] [place], [address] BACTERIA 1+ /hpf Normal None Seen [facility] Comment on above: Order Comment: COLLE CTOR TO SPECIFY Performed By: #### L 100.0100, L500.2500 #### [facility] [address] [place], [address] EPI,SQUAMOUS 0-5 SEEN Normal 0-5 [facility] Comment on above: Order Comment: COLLE CTOR TO SPECIFY Performed By: #### L 100.0100, L500.2500 #### [facility] [address] [place], [address] RBC 0-5 SEEN Normal 0-5 [facility] Comment on above: Order Comment: COLLE CTOR TO SPECIFY Performed By: #### L 100.0100, L500.2500 #### [facility] [address] [place], [address] WBC 0-5 SEEN Normal 0-5 [facility] Comment on above: Order Comment: COLLE CTOR TO SPECIFY Performed By: #### L 100.0100, L500.2500 #### [facility] [address] [place], [address] Mucus Ql (Urine sed) 0 SEEN Normal [facility] Comment on above: Order Comment: COLLE CTOR TO SPECIFY Performed By: #### L 100.0100, L500.2500 #### [facility] [address] [place], [address] Urine clarityOrdered By: Hector Brunson on 03-27-2025 Clarity (U) Sl. Cloudy Clear [facility] Urine color determinationOrd ered By: Renato Brunson on 03-27-2025 Color (U) Yellow Yellow [facility] Urine cultureOrdered By: Hector Brunson on 03-27-2025 Bacteria identified Cx Nom (U) Culture exhibits no growth. [facility] Urine glucose detectionOrder ed By: Renato Brunson on 03-27-2025 Glucose Ql (U) Normal mg/dl Normal [facility] Urine leukocyte esterase det ection by dipstickOrdered By: Renato Brunson on 03-27-2025 Leukocyte esterase Test strip Ql (U) Negative Negative [facility] Urine pHOrdered By: Renato hadley on 03-27-2025 pH (U) 7.0 [pH] 5.0 - 8.0 [facility] Urine sediment bacteria coun t by microscopy (number/high power field)Ordered By: Renato Brunson on 03-27-2025 Bacteria LM.HPF (Urine sed) [#/Area] 1 /[HPF] None Seen [facility] Urine specific gravity measu rementOrdered By: Renato Brunson on 03-27-2025 Specific gravity (U) [Rel density] 1.010 1.002-1.03 0 [facility] Urine urobilinogen measureme ntOrdered By: Renato Brunson on 03-27-2025 Urobilinogen Ql (U) Normal mg/dl Normal [facility] White blood cell countOrdere d By: Renato Brunson on 03-27-2025 White blood cell count 0-5 SEEN /hpf 0-5 [facility] AFP, Tumor Markeron 03-08-20 25 AFP TUMOR ANGELA 234.0 ng/mL High 0.0-5.7 [facility] Comment on above: Result Comment: [facility] [employer] Electrochemiluminescence Immunoassay (ECLIA) Values obtained with different assay methods or kits cannot be used interchangeably. Results cannot be interpreted as absolute evidence of the presence or absence of malignant disease. This test is not interpretable in females. Performed at: [address] [id number] Aquatic Ecologist: Luis Rubio PhD, Phone: [phone] Performed By: #### L 100.0100, L500.8915 #### [facility] [address] [facility] [place], [address] Absolute lymphocyte countOrd ered By: Frankie Moreno on 03-07-2025 Lymphocytes Auto (Unsp spec) [#/Vol] 1.30 10*3/uL 0.83-4.51 [facility] Absolute neutrophil countOrd ered By: Frankie Moreno on 03-07-2025 Neutrophils (Bld) [#/Vol] 13.1 10*3/uL High 2.0-7.7 [facility] Automated lymphocyte count a s percentage of total leukocytesOrdered By: Frankie Moreno on 03-07-2025 Lymphocytes/100 WBC Auto (Unsp spec) 8.2 % Low 19-41 [facility] Basophil percentageOrdered B y: Frankie Moreno on 03-07-2025 Basophils/100 WBC (Bld) 0.3 % 0-1 [facility] CBC W/Diff, Automatedon Absolute Lymph 1.30 X10 3/uL Normal 0.83-4.51 [facility] Comment on above: Performed By: #### L 100.0100 #### [facility] [address] [place], [address] Absolute Neut 13.1 X10 3/uL High 2.0-7.7 [facility] Comment on above: Performed By: #### L 100.0100 #### [facility] [address] [place], [address] Basophils/100 WBC (Bld) 0.3 % Normal 0-1 [facility] Comment on above: Performed By: #### L 100.0100 #### [facility] [address] [place], [address] Eosinophils/100 WBC (Bld) 0.1 % Normal 0-5 [facility] Comment on above: Performed By: #### L 100.0100 #### [facility] [address] [place], [address] Erythrocyte distribution width (RBC) [Ratio] 13.2 % Normal 11.6-14.6 [facility] Comment on above: Performed By: #### L 100.0100 #### [facility] [address] [place], [address] Hematocrit (Bld) [Volume fraction] 37.7 % Low 40-54 [facility] Comment on above: Performed By: #### L 100.0100 #### [facility] [address] [place], [address] Hemoglobin (Bld) [Mass/Vol] 12.8 g/dL Low 13.0-16.5 [facility] Comment on above: Performed By: #### L 100.0100 #### [facility] [address] [place], [address] IG% 0.600 Normal 0.0-0.9 [facility] Comment on above: Result Comment: IG% - Immature Granulocytes (promyelocytes, myelocytes and metamyelocytes) > 1% indicates that a LEFT SHIFT is Present. Performed By: #### L 100.0100 #### [facility] [address] [place], [address] Lymphocytes/100 WBC (Bld) 8.2 % Low 19-41 [facility] Comment on above: Performed By: #### L 100.0100 #### [facility] [address] [place], [address] MCH (RBC) [Entitic mass] 29.3 pg Normal 27.0-32.0 [facility] Comment on above: Performed By: #### L 100.0100 #### [facility] [address] [place], [address] MCHC (RBC) [Mass/Vol] 34.0 g/dL Normal 32-[address] [facility] Comment on above: Performed By: #### L 100.0100 #### [facility] [address] [place], [address] MCV (RBC) [Entitic vol] 86.3 fL Normal 80-94 [facility] Comment on above: Performed By: #### L 100.0100 #### [facility] [address] [place], [address] Monocytes/100 WBC (Bld) 8.3 % Normal 0-10 [facility] Comment on above: Performed By: #### L 100.0100 #### [facility] [address] [place], [address] Neutrophils/100 WBC (Bld) 82.5 % High 47-70 [facility] Comment on above: Performed By: #### L 100.0100 #### [facility] [address] [place], [address] Nucleated RBC (Bld) [#/Vol] 0 10*3/uL Normal 0-5 [facility] Comment on above: Performed By: #### L 100.0100 #### [facility] [address] [place], [address] Platelet mean volume (Bld) [Entitic vol] 10.5 fL Normal 6.2-12.0 [facility] Comment on above: Performed By: #### L 100.0100 #### [facility] [address] [place], [address] Platelets (Bld) [#/Vol] 373 10*3/uL Normal 150-450 [facility] Comment on above: Performed By: #### L 100.0100 #### [facility] [address] [place], [address] RBC (Bld) [#/Vol] 4.37 10*6/uL Low 4.6-6.2 [facility] Comment on above: Performed By: #### L 100.0100 #### [facility] [address] [place], [address] RDW SD 41.3 fl Normal 35.1-43.9 [facility] Comment on above: Performed By: #### L 100.0100 #### [facility] [address] [place], [address] WBC (Bld) [#/Vol] 15.9 10*3/uL High 4.4-11.0 [facility] Comment on above: Performed By: #### L 100.0100 #### [facility] [address] [place], [address] Discharge Instructionon 070 Discharge Instruction [facility] Medical Records Department [address] [place] [address] Instructions for Home/Discharge Instructions 03/07/25 1008 MR#: [id number] Acct: [id number] Name: JESSICA BARR Rep #: [id number] : 2005 19 From: Frankie Moreno MD PCP: Mitali Mosher NP-C Status:ADM IN Discharge Instructions Diet Discharge Diet: [...] Constipation) Qty: 0 0RF Rx Instructions: Available [id number] pain Referrals / Follow Up: Feliz Van MD [Med Staff - Active Staff] - Mitali Mosher NP, CLAIM AGENT-C [Primary Care Provider] - Disposition Disposition (needs filled in before D/C Order can be placed): Home, Self Care 03/07/25 1010 Frankie Moreno MD CC: CLAIM AGENT-C Mitali Mosher; Dr. Feliz Van MD; Dr. Felecia Roland MD Signed Normal [facility] Eosinophil percentageOrdered By: Frankie Moreno on 03-07-2025 Eosinophils/100 WBC (Bld) 0.1 % 0-5 [facility] Erythrocyte distribution wid th ratioOrdered By: Frankie Moreno on 03-07-2025 Erythrocyte distribution width (RBC) [Ratio] 13.2 % 11.6-14.6 [facility] Erythrocyte distribution wid th standard deviationOrdered By: Frankie Moreno on 03-07-2025 Erythrocyte distribution width (RBC) [Ratio] 41.3 fl 35.1-43.9 [facility] Hematocrit Auto (Bld) [Volum e fraction]Ordered By: Frankie Moreno on 03-07-2025 Hematocrit (Bld) [Volume fraction] 37.7 % Low 40-54 [facility] Hemoglobin measurementOrdere d By: Frankie Moreno on 03-07-2025 Hemoglobin (Bld) [Mass/Vol] 12.8 g/dL Low 13.0-16.5 [facility] Immature granulocytes/100 WB C Auto (Bld)Ordered By: Frankie Moreno on 03-07-2025 Immature granulocytes/100 WBC (Bld) 0.600 % 0.0-0.9 [facility] Comment on above: IG% - Immature Granu locytes (promyelocytes, myelocytes and metamyelocytes) > 1% indicates that a LEFT SHIFT is Present. MCV (mean corpuscular volume ) determinationOrdered By: Frankie Moreno on 03-07-2025 MCV (RBC) [Entitic vol] 86.3 fL 80-94 [facility] Mean corpuscular hemoglobin (MCH) determinationOrdered By: Frankie Moreno on 03-07-2025 MCH (RBC) [Entitic mass] 29.3 pg 27.0-32.0 [facility] Mean corpuscular hemoglobin concentration (MCHC) determinationOrdered By: Frankie Moreno on 03-07-2025 MCHC (RBC) [Mass/Vol] 34.0 g/dL 32-[address] [facility] Mean platelet volume determi nationOrdered By: Frankie Moreno on 03-07-2025 Platelet mean volume (Bld) [Entitic vol] 10.5 fL 6.2-12.0 [facility] Monocyte percentageOrdered B y: Frankie Moreno on 03-07-2025 Monocytes/100 WBC (Bld) 8.3 % 0-10 [facility] Neutrophil percentageOrdered By: Frankie Moreno on 03-07-2025 Neutrophils/100 WBC (Bld) 82.5 % High 47-70 [facility] Nucleated red blood cell per centageOrdered By: Frankie Moreno on 03-07-2025 Nucleated RBC/100 WBC (Bld) [Ratio] 0 % 0-5 [facility] Platelet countOrdered By: Brandi Moreno on 03-07-2025 Platelets (Bld) [#/Vol] 373 10*3/uL 150-450 [facility] RBC Auto (Bld) [#/Vol]Ordere d By: Frankie Moreno on 03-07-2025 RBC (Bld) [#/Vol] 4.37 10*6/uL Low 4.6-6.2 [facility] White blood cell (WBC) count Ordered By: Frankie Moreno on 03-07-2025 WBC (Bld) [#/Vol] 15.9 10*3/uL High 4.4-11.0 [facility] Anion gap in Serum or Plasma Ordered By: Felecia Roland on 03-06-2025 Anion gap [Moles/Vol] 10 mmol/L 5-[address] [facility] BUN/creatinine ratioOrdered By: Felecia Roland on 03-06-2025 Urea nitrogen/Creatinine [Mass ratio] 12.8 mg/mg 10-20 [facility] Basic Metabolic Profile (BMP )on 03-06-2025 BUN/CRE 12.8 RATIO Normal 10-20 [facility] Comment on above: Performed By: #### L 100.0100, L500.2500 ####[facility] [address] [place], [address] Calcium [Mass/Vol] 9.1 mg/dL Normal 7.6-11.0 [facility] Comment on above: Performed By: #### L 100.0100, L500.2500 ####[facility] [address] [place], [address] Chloride [Moles/Vol] 105 mmol/L Normal 98-108 [facility] Comment on above: Performed By: #### L 100.0100, L500.2500 ####[facility] [address] [place], [address] CO2 [Moles/Vol] 22.4 mmol/L Normal 21.0-32.0 [facility] Comment on above: Performed By: #### L 100.0100, L500.2500 ####[facility] [address] [place], [address] Creatinine [Mass/Vol] 0.73 mg/dL Normal 0.70-1.[address] [facility] Comment on above: Performed By: #### L 100.0100, L500.2500 ####[facility] [address] [place], [address] ECRCL 154.86 ml/min Normal 50-250 [facility] Comment on above: Performed By: #### L 100.0100, L500.2500 ####[facility] [address] [place], [address] GAP 10 Normal 5-15 [facility] Comment on above: Performed By: #### L 100.0100, L500.2500 ####[facility] [address] [place], [address] GFR/1.73 sq M.predicted among non-blacks MDRD (S/P/Bld) [Vol rate/Area] 133 mL/min/{1.73_m2} Normal >60 [facility] Comment on above: Result Comment: mL/m in/1.73m2 CKD-EPI Creatinine Equation (2020) Performed By: #### L 100.0100, L500.2500 ####[facility] [address] [place], [address] Glucose [Mass/Vol] 95 mg/dL Normal 70-99 [facility] Comment on above: Performed By: #### L 100.0100, L500.2500 ####[facility] [address] [place], [address] Potassium [Moles/Vol] 3.9 mmol/L Normal 3.3-5.[address] [facility] Comment on above: Performed By: #### L 100.0100, L500.2500 ####[facility] [address] [place], [address] Sodium [Moles/Vol] 138 mmol/L Normal 133-145 [facility] Comment on above: Performed By: #### L 100.0100, L500.2500 ####[facility] [address] [place], [address] Urea nitrogen [Mass/Vol] 9 mg/dL Normal 4-19 [facility] Comment on above: Performed By: #### L 100.0100, L500.2500 ####[facility] [address] [place], [address] CBC W/Diff, Automatedon 06-3 0-2024 Absolute Lymph 1.64 X10 3/uL Normal 0.83-4.51 [facility] Comment on above: Performed By: #### L 100.0100, L500.2500 ####[facility] [address] [place], [address] Absolute Neut 4.8 X10 3/uL Normal 2.0-7.7 [facility] Comment on above: Performed By: #### L 100.0100, L500.2500 ####[facility] [address] [place], [address] Basophils/100 WBC (Bld) 0.9 % Normal 0-1 [facility] Comment on above: Performed By: #### L 100.0100, L500.2500 ####[facility] [address] [place], [address] Eosinophils/100 WBC (Bld) 3.0 % Normal 0-5 [facility] Comment on above: Performed By: #### L 100.0100, L500.2500 ####[facility] [address] [place], [address] Erythrocyte distribution width (RBC) [Ratio] 13.4 % Normal 11.6-14.6 [facility] Comment on above: Performed By: #### L 100.0100, L500.2500 ####[facility] [address] [place], [address] Hematocrit (Bld) [Volume fraction] 39.3 % Low 40-54 [facility] Comment on above: Performed By: #### L 100.0100, L500.2500 ####[facility] [address] [place], [address] Hemoglobin (Bld) [Mass/Vol] 13.3 g/dL Normal 13.0-16.5 [facility] Comment on above: Performed By: #### L 100.0100, L500.2500 ####[facility] [address] [place], [address] IG% 0.400 Normal 0.0-0.9 [facility] Comment on above: Result Comment: IG% - Immature Granulocytes (promyelocytes, myelocytes and metamyelocytes) > 1% indicates that a LEFT SHIFT is Present. Performed By: #### L 100.0100, L500.2500 ####[facility] [address] [place], [address] Lymphocytes/100 WBC (Bld) 21.4 % Normal 19-41 [facility] Comment on above: Performed By: #### L 100.0100, L500.2500 ####[facility] [address] [place], [address] MCH (RBC) [Entitic mass] 29.4 pg Normal 27.0-32.0 [facility] Comment on above: Performed By: #### L 100.0100, L500.2500 ####[facility] [address] [place], [address] MCHC (RBC) [Mass/Vol] 33.8 g/dL Normal 32-[address] [facility] Comment on above: Performed By: #### L 100.0100, L500.2500 ####[facility] [address] [place], [address] MCV (RBC) [Entitic vol] 86.9 fL Normal 80-94 [facility] Comment on above: Performed By: #### L 100.0100, L500.2500 ####[facility] [address] [place], [address] Monocytes/100 WBC (Bld) 12.0 % High 0-10 [facility] Comment on above: Performed By: #### L 100.0100, L500.2500 ####[facility] [address] [place], [address] Neutrophils/100 WBC (Bld) 62.3 % Normal 47-70 [facility] Comment on above: Performed By: #### L 100.0100, L500.2500 ####[facility] [address] [place], [address] Nucleated RBC (Bld) [#/Vol] 0 10*3/uL Normal 0-5 [facility] Comment on above: Performed By: #### L 100.0100, L500.2500 ####[facility] [address] [place], [address] Platelet mean volume (Bld) [Entitic vol] 10.1 fL Normal 6.2-12.0 [facility] Comment on above: Performed By: #### L 100.0100, L500.2500 ####[facility] [address] [place], [address] Platelets (Bld) [#/Vol] 346 10*3/uL Normal 150-450 [facility] Comment on above: Performed By: #### L 100.0100, L500.2500 ####[facility] [address] [place], [address] RBC (Bld) [#/Vol] 4.52 10*6/uL Low 4.6-6.2 [facility] Comment on above: Performed By: #### L 100.0100, L500.2500 ####[facility] [address] [place], [address] RDW SD 42.5 fl Normal 35.1-43.9 [facility] Comment on above: Performed By: #### L 100.0100, L500.2500 ####[facility] [address] [place], [address] WBC (Bld) [#/Vol] 7.7 10*3/uL Normal 4.4-11.0 [facility] Comment on above: Performed By: #### L 100.0100, L500.2500 ####[facility] [address] [place], [address] Carbon dioxide, total [Moles /volume] in Central venous bloodOrdered By: Felecia Roland on 03-06-2025 CO2 [Moles/Vol] 22.4 mmol/L 21.0-32.0 [facility] Chloride assayOrdered By: Kofi Roland on 03-06-2025 Chloride [Moles/Vol] 105 mmol/L 98-108 [facility] Consultation - Urologyon Consultation - Urology [facility] Medical Records Department [address] [place] [address] Consultation - Urology 03/06/25 0726 MR#: [id number] Acct: [id number] Name: JESSICA BARR Rep #: [id number] : 2005 19 From: Feliz Van MD PCP: ALEJANDRO Brown Status:ADM IN Location: [place] [address]1 Assessment Plan Assessment/Plan (1) Mass of right [...] this is very likely a testicular cancer. [facility] Medical History Smoker Depression Anxiety Home Medications [...] % (Auto) 58.8, Lymph % (Auto) 23.5, [place] % (Auto) 12.4 H, Eos % (Auto) [...] % (Auto) 62.3, Lymph % (Auto) 21.4, [place] % (Auto) 12.0 H, Eos % (Auto) [...] Small hydrocele within the right. Reading Location: [facility] 03/06/25 [facility] Cosigner Signature (if applicable): CC: CLAIM AGENT-C Mitali Mosher Signed Normal [facility] Discharge Instructionon 02-07 Discharge Instruction [facility] Medical Records Department [address] [place] [address] Instructions for Home/Discharge Instructions 03/06/25 1403 MR#: [id number] Acct: [id number] Name: JESSICA BARR Rep #: [id number] : 2005 19 From: Feliz Van MD PCP: Mitali Mosher, JUAN DANIELC Status:ADM IN Discharge Instructions Diet Discharge Diet: No restrictions DC O2, CPAP, BIPAP needs Home O2 Discharge instructions: No Dressing / Incision Discharge Activity: Return to Normal Activity and May Not Drive (while taking narcotic pain medications.) Dressing / Incision Call your doctor if you observe: Fever of 101 or Higher Follow Up Care Please Follow Up With: Feliz Van MD When: Call [phone] for an appointment to go over tissue [...] - Active Staff] - Mitali Mosher NP, CLAIM AGENT-C [Primary Care Provider] - 03/06/25 1404 Feliz Van MD CC: CLAIM AGENT-C Mitali Mosher; Dr. Feliz Van MD; Dr. Felecia Roland MD Signed Normal [facility] Glomerular filtration rate ( GFR) estimation/1.73 sq m using serum, plasma, or whole bOrdered By: Felecia Roland on 03-06-2025 GFR/1.73 sq M.predicted among non-blacks MDRD (S/P/Bld) [Vol rate/Area] 133 mL/min/{1.73_m2} >60 [facility] Comment on above: mL/min/1.73m2 CKD-EP I Creatinine Equation (2020) LDHon 03-06-2025 LDH 176 U/L Normal 87-241 [facility] Comment on above: Order Comment: 1 Performed By: #### L 504.2610 ####[facility] [address] [place], [address] Lactate dehydrogenase (LDH) measurementOrdered By: Frankie Moreno on 03-06-2025 LDH [Catalytic activity/Vol] 176 U/L 87-241 [facility] MR/POSTOP.ANEon 03-06-2025 MR/POSTOP.ANE [facility] Medical Records Department [address] [place] [address] Anesthesia Postop Eval I 03/06/25 1317 MR#: [id number] Acct: [id number] Name: JESSICA BARR Rep #: [id number] : 2005 19 From: Darya Borrego CRNA PCP: JUAN DANIEL BrownC Status:ADM IN Y Race: C Location: [address] Anesthesia: Postop Eval I Current Vital Signs Temperature: 98 F Pulse Rate: 79 Blood Pressure: 118/61 Respiratory Rate: 20 Pulse Ox: 97 Assessment Airway patent: Yes Spontaneous unlabored respirations: Yes nausea: No Vomiting: No Anesthesia Complication: No Fluid Hydration Crystalloid volume administer (ml): 800 Total IV fluid infused: 800 Progress Note Anesthesia document: Postop Eval 1 completed: Yes 03/06/25 1317 Date Darya Borrego CRNA Cosigner Signature: Date CC: Signed Normal [facility] MR/IAHYEPMS7li 03-06-2025 MR/POSTOPAN2 [facility] Medical Records Department [address] [place] [address] Anesthesia Postop Eval II 03/06/25 1645 MR#: [id number] Acct: [id number] Name: MIKERABIAJESSICA BARNETT HAZEL Rep #: [id number] : 2005 19 From: Darya Borrego CRNA PCP: JUAN DANIEL BrownC Status:ADM IN Y Race: C Location: [facility] HV893-4 Anesthesia Postop Eval I Sum Postop Eval Completion status Anesthesia document: Postop Eval 1 completed: Yes Anesthesia Postop Eval I Summary Anesthesia Postop Eval I Summary: Anesthesia Postop Eval I: Assessment Summary Airway patent Yes 03/06/25 13:17 DOWNSTREAM BIOMANUFACTURING TECHNICIAN.CSIR Spontaneous unlabored Yes 03/06/25 13:17 DOWNSTREAM BIOMANUFACTURING TECHNICIAN.CSIR respirations Mental status nausea No 03/06/25 13:17 DOWNSTREAM BIOMANUFACTURING TECHNICIAN.CSIR Vomiting No 03/06/25 13:17 DOWNSTREAM BIOMANUFACTURING TECHNICIAN.CSIR Anesthesia Postop Eval I: Fluid Summary Crystalloid volume administer 800 03/06/25 13:17 DOWNSTREAM BIOMANUFACTURING TECHNICIAN.CSIR (ml) Colloids volume administered ( ml) Blood Product volume administered (ml) Total IV fluid infused 800 03/06/25 13:17 DOWNSTREAM BIOMANUFACTURING TECHNICIAN.CSIR Anesthesia Postop Eval I: Summary Notes Anesthesia Complication No 03/06/25 13:17 DOWNSTREAM BIOMANUFACTURING TECHNICIAN.CSIR Anesthesia Complication Comment: Post-operative progress note Anesthesia: Postop Eval II Evaluation Mental status: Awake Pain Level: 1 nausea: No Vomiting: No 03/06/25 1645 Date Darya Borrego DOWNSTREAM BIOMANUFACTURING TECHNICIAN Cosigner Signature: Date CC: Signed Normal [facility] Operative Reporton Operative Report [facility] Medical Records Department [address] [place] [address] Operative Report 03/06/25 1301 MR#: [id number] Acct: [id number] Name: JESSICA BARR Rep #: [id number] : 2005 19 From: Feliz Van MD PCP: Mitali Mosher CLAIM AGENT-C Status:ADM IN Location: CT3 LT265-5 Operative Report (Standard) Operative Information Date of Procedure: 03/06/25 Pre-Operative Diagnosis: Right testicular mass Post-Operative Diagnosis: The same Surgery/Procedure Performed: Right radical orchiectomy electric motor repair supervisor: No Type of Anesthesia: General RN Documented [...] SCD's VTE Pharm Prophylaxis ordered?: No 03/06/25 3844 Cosigner Signature (if applicable): CC: ALEJANDRO Mosher; Dr. Feliz Van MD; Dr. Felecia Roland MD Signed Normal [facility] Potassium measurement (mass/ volume)Ordered By: Felecia Roland on 03-06-2025 Potassium (Unsp spec) [Mass/Vol] 3.9 mmol/L 3.3-5.1 [facility] Serum creatinine measurement (mass/volume)Ordered By: Felecia Roland on 03-06-2025 Creatinine [Mass/Vol] 0.73 mg/dL 0.70-1.[address] [facility] Serum glucose measurement (m ass/volume)Ordered By: Felecia Roland on 03-06-2025 Glucose [Mass/Vol] 95 mg/dL 70-99 [facility] Serum or plasma calcium erica urement (mass/volume)Ordered By: Felecia Roland on 03-06-2025 Calcium [Mass/Vol] 9.1 mg/dL 7.6-11.0 [facility] Serum or plasma urea nitroge n measurement (mass/volume)Ordered By: Felecia Roland on 03-06-2025 Urea nitrogen [Mass/Vol] 9 mg/dL 4-19 [facility] Sodium levelOrdered By: Ani Roland on 03-06-2025 Sodium [Moles/Vol] 138 mmol/L 133-145 [facility] Surgery Specimen Level VIon 03-06-2025 Surgery Specimen Level Patient Age/Sex Location Account Attending Physician JESSICA BARR 19/M MS3 [id number] Dr. Frankie Moreno MD Specimen: [id number] Received: 03/06/25 Status: RYAN Curry Num: [id number] Spec Type: TESTICLE Subm Dr: Dr. Feliz [...] Account Attending Physician JESSICA BARR 19/M MS3 [id number] Dr. Frankie Moreno MD [employer] and [employer] for the reporting of cancer specimens. COMMENT Selected slides/images were reviewed in intradepartmental consultation by Dr Davy Graham ( pathology division, [facility]). MICROSCOPIC DESCRIPTION Slides are reviewed. All controls show appropriate reactivity. All immunohistochemistry, in situ hybridization, and histochemical tests were developed by and are performed at the [facility], [address], [address], [place] [address]. All Immunofluorescent (IF)???tests were developed by and are performed at the [facility], [address] [place] [address] ???[id number]. All tests reported here, except those addressing [...] specimen is inked as follows: Spermatic cord: [place] Tunica vaginalis: Black Tunica albuginea: Blue The [...] with seminiferous tubules that string with ease. Engineering Clerk sections are submitted as follows: A1: Spermatic cord margin, shavedA2: Spermatic cord cross-sectionsA3: Mass to tunica albugineaA4: Mass to epididymisA5: Mass to rete testesA6: (more content not included)... Normal [facility] Comment on above: Performed By: #### P SUVI ####[facility] [address] [place], [address] Basic Metabolic Profile (BMP )on 03-05-2025 BUN/CRE 9.0 RATIO Low 10-20 [facility] Comment on above: Performed By: #### L 100.0100 #### [facility] [address] [place], [address] Calcium [Mass/Vol] 9.1 mg/dL Normal 7.6-11.0 [facility] Comment on above: Performed By: #### L 100.0100 #### [facility] [address] [place], [address] Chloride [Moles/Vol] 103 mmol/L Normal 98-108 [facility] Comment on above: Performed By: #### L 100.0100 #### [facility] [address] [place], [address] CO2 [Moles/Vol] 22.3 mmol/L Normal 21.0-32.0 [facility] Comment on above: Performed By: #### L 100.0100 #### [facility] [address] [place], [address] Creatinine [Mass/Vol] 0.71 mg/dL Normal 0.70-1.[address] [facility] Comment on above: Performed By: #### L 100.0100 #### [facility] [address] [place], [address] ECRCL 159.23 ml/min Normal 50-250 [facility] Comment on above: Performed By: #### L 100.0100 #### [facility] [address] [place], [address] GAP 10 Normal 5-15 [facility] Comment on above: Performed By: #### L 100.0100 #### [facility] [address] [place], [address] GFR/1.73 sq M.predicted among non-blacks MDRD (S/P/Bld) [Vol rate/Area] 134 mL/min/{1.73_m2} Normal >60 [facility] Comment on above: Result Comment: mL/m in/1.73m2 CKD-EPI Creatinine Equation (2020) Performed By: #### L 100.0100 #### [facility] [address] [place], [address] Glucose [Mass/Vol] 92 mg/dL Normal 70-99 [facility] Comment on above: Performed By: #### L 100.0100 #### [facility] [address] [place], [address] Potassium [Moles/Vol] 4.4 mmol/L Normal 3.3-5.[address] [facility] Comment on above: Performed By: #### L 100.0100 #### [facility] [address] [place], [address] Sodium [Moles/Vol] 136 mmol/L Normal 133-145 [facility] Comment on above: Performed By: #### L 100.0100 #### [facility] [address] [place], [address] Urea nitrogen [Mass/Vol] 6 mg/dL Normal 4-19 [facility] Comment on above: Performed By: #### L 100.0100 #### [facility] [address] [place], [address] CBC W/Diff, Automatedon 06-2 Absolute Lymph 1.78 X10 3/uL Normal 0.83-4.51 [facility] Comment on above: Performed By: #### L 100.0100 #### [facility] [address] [place], [address] Absolute Neut 4.5 X10 3/uL Normal 2.0-7.7 [facility] Comment on above: Performed By: #### L 100.0100 #### [facility] [address] [place], [address] Basophils/100 WBC (Bld) 1.6 % High 0-1 [facility] Comment on above: Performed By: #### L 100.0100 #### [facility] [address] [place], [address] Eosinophils/100 WBC (Bld) 3.4 % Normal 0-5 [facility] Comment on above: Performed By: #### L 100.0100 #### [facility] [address] [place], [address] Erythrocyte distribution width (RBC) [Ratio] 13.4 % Normal 11.6-14.6 [facility] Comment on above: Performed By: #### L 100.0100 #### [facility] [address] [place], [address] Hematocrit (Bld) [Volume fraction] 40.0 % Normal 40-54 [facility] Comment on above: Performed By: #### L 100.0100 #### [facility] [address] [place], [address] Hemoglobin (Bld) [Mass/Vol] 13.4 g/dL Normal 13.0-16.5 [facility] Comment on above: Performed By: #### L 100.0100 #### [facility] [address] [place], [address] IG% 0.300 Normal 0.0-0.9 [facility] Comment on above: Result Comment: IG% - Immature Granulocytes (promyelocytes, myelocytes and metamyelocytes) > 1% indicates that a LEFT SHIFT is Present. Performed By: #### L 100.0100 #### [facility] [address] [place], [address] Lymphocytes/100 WBC (Bld) 23.5 % Normal 19-41 [facility] Comment on above: Performed By: #### L 100.0100 #### [facility] [address] [place], [address] MCH (RBC) [Entitic mass] 28.6 pg Normal 27.0-32.0 [facility] Comment on above: Performed By: #### L 100.0100 #### [facility] [address] [place], [address] MCHC (RBC) [Mass/Vol] 33.5 g/dL Normal 32-[address] [facility] Comment on above: Performed By: #### L 100.0100 #### [facility] [address] [place], [address] MCV (RBC) [Entitic vol] 85.5 fL Normal 80-94 [facility] Comment on above: Performed By: #### L 100.0100 #### [facility] [address] [place], [address] Monocytes/100 WBC (Bld) 12.4 % High 0-10 [facility] Comment on above: Performed By: #### L 100.0100 #### [facility] [place], [address] Neutrophils/100 WBC (Bld) 58.8 % Normal 47-70 [facility] Comment on above: Performed By: #### L 100.0100 #### [facility] [address] [place], [address] Nucleated RBC (Bld) [#/Vol] 0 10*3/uL Normal 0-5 [facility] Comment on above: Performed By: #### L 100.0100 #### [facility] [address] [place], [address] Platelet mean volume (Bld) [Entitic vol] 9.6 fL Normal 6.2-12.0 [facility] Comment on above: Performed By: #### L 100.0100 #### [facility] [address] [place], [address] Platelets (Bld) [#/Vol] 378 10*3/uL Normal 150-450 [facility] Comment on above: Performed By: #### L 100.0100 #### [facility] [address] [place], [address] RBC (Bld) [#/Vol] 4.68 10*6/uL Normal 4.6-6.2 [facility] Comment on above: Performed By: #### L 100.0100 #### [facility] [address] [place], [address] RDW SD 41.9 fl Normal 35.1-43.9 [facility] Comment on above: Performed By: #### L 100.0100 #### [facility] [address] [place], [address] WBC (Bld) [#/Vol] 7.6 10*3/uL Normal 4.4-11.0 [facility] Comment on above: Performed By: #### L 100.0100 #### [facility] [address] [place], [address] Emergency Department Summary on 03-05-2025 Emergency Department Summary [facility] Medical Records Department [address] [place] [address] Emergency Department Summary 03/05/25 MR#: [id number] Acct: [id number] Name: JESSICA BARR Rep #: [id number] : 2005 19 From: Batsheva KIRBY PCP: Mitali Mosher NP-C Status:ADM IN Location: [place] [address] Patient was seen and examined with physician assistant women's tennis coach Batsheva All components of the history and [...] to the hospital Supervising attending attestation: Kobe Pisano D.O. [facility] History of Present Illness Chief Complaint: Male [...] No urinary symptoms. No fever or chills. [facility] Medical History Depression Anxiety Home Medications ???Medication [...] Right te (more content not included)... Normal [facility] H AND P Exam - [facility] 03-05-2025 H&P Exam - Hospitalist [facility] Medical Records Department [address] [place] [address] H P Exam - Hospitalist 03/05/25 1806 MR#: [id number] Acct: [id number] Name: JESSICA BARR Rep #: [id number] : 2005 19 From: Felecia Roland MD PCP: ALEJANDRO Brown Status:ADM IN Location: CT3 IN459-2 HPI - General General Date of Admission: 03/05/25 Date of Service: 03/05/25 Chief Complaint: Right testicular pain HPI Narrative JESSICA BARR, is a 19-year-old male presented [facility] 03/05/2025 with continued right testicular pain [...] testicles severe, no abdominal pain or diarrhea [facility] Medical History Depression Anxiety Home Medications ???Medication [...] Impression Testicula (more content not included)... Normal [facility] Testicular with Arterial Ervin won 03-05-2025 Testicular with Arterial Flow [facility] Imaging Services [address] [place], [place] [id number] Testicular with Arterial Flow MR#: [id number] Acct: [id number] Name: JESSICA BARR Rep #: [id number] : 2005 M 19 From: Mauricio Schrader PCP: ALEJANDRO Brown Status: REG ER Study: Testicular with Arterial Flow Date of Exam: Exam# [id number] Ordering Dr: Batsheva García ADDENDUM by Dr. Mauricio Obrien MD on 03/05/[address] Pisano was notified by Mauricio Obrien at 5:21 pm EST on 03/05/2025. Reading Location: [id number] 03/05/25 1724 Date cc: ALEJANDRO Mosher; KOFI [...] Small hydrocele within the right. Reading Location: [id number] CC: ALEJANDRO Mosher; KOFI Amato Panel Gluer: Signed Normal [facility] Absolute lymphocyte countOrd ered By: Kobe Pisano on 03-04-2025 Lymphocytes Auto (Unsp spec) [#/Vol] 1.06 10*3/uL 0.83-4.51 [facility] Absolute neutrophil countOrd ered By: Kobe Pisano on 03-04-2025 Neutrophils (Bld) [#/Vol] 5.7 10*3/uL 2.0-7.7 [facility] Amorphous sediment detection in urine sediment by light microscopyOrdered By: Kobe Pisnao on 03-04-2025 Amorphous sediment LM Ql (Urine sed) 1+ [facility] Anion gap in Serum or Plasma Ordered By: Kobe Pisano on 03-04-2025 Anion gap [Moles/Vol] 10 mmol/L 5-[address] [facility] Automated lymphocyte count a s percentage of total leukocytesOrdered By: Kobe Pisano on 03-04-2025 Lymphocytes/100 WBC Auto (Unsp spec) 13.7 % Low 19-41 [facility] BUN/creatinine ratioOrdered By: Kobe Pisano on 03-04-2025 Urea nitrogen/Creatinine [Mass ratio] 10.1 mg/mg 10-20 [facility] Basophil percentageOrdered B y: Kobe Pisano on 03-04-2025 Basophils/100 WBC (Bld) 0.6 % 0-1 [facility] Bilirubin Test strip Ql (U)O rdered By: Kobe Pisano on 03-04-2025 Bilirubin Ql (U) Negative Negative [facility] Bilirubin, totalOrdered By: Kobe Pisano on 03-04-2025 Bilirubin [Mass/Vol] 0.65 mg/dL 0.00-1.30 [facility] CBC W/Diff, Automatedon 02-06 Absolute Lymph 1.06 X10 3/uL Normal 0.83-4.51 [facility] Comment on above: Performed By: #### L 100.0100, L500.2500 #### [facility] [address] [place], [address] Absolute Neut 5.7 X10 3/uL Normal 2.0-7.7 [facility] Comment on above: Performed By: #### L 100.0100, L500.2500 #### [facility] [address] [place], [address] Basophils/100 WBC (Bld) 0.6 % Normal 0-1 [facility] Comment on above: Performed By: #### L 100.0100, L500.2500 #### [facility] [address] [place], [address] Eosinophils/100 WBC (Bld) 1.7 % Normal 0-5 [facility] Comment on above: Performed By: #### L 100.0100, L500.2500 #### [facility] [address] [place], [address] Erythrocyte distribution width (RBC) [Ratio] 13.3 % Normal 11.6-14.6 [facility] Comment on above: Performed By: #### L 100.0100, L500.2500 #### [facility] [address] [place], [address] Hematocrit (Bld) [Volume fraction] 42.1 % Normal 40-54 [facility] Comment on above: Performed By: #### L 100.0100, L500.2500 #### [facility] [address] [place], [address] Hemoglobin (Bld) [Mass/Vol] 14.6 g/dL Normal 13.0-16.5 [facility] Comment on above: Performed By: #### L 100.0100, L500.2500 #### [facility] [address] [place], [address] IG% 0.300 Normal 0.0-0.9 [facility] Comment on above: Result Comment: IG% - Immature Granulocytes (promyelocytes, myelocytes and metamyelocytes) > 1% indicates that a LEFT SHIFT is Present. Performed By: #### L 100.0100, L500.2500 #### [facility] [address] [place], [address] Lymphocytes/100 WBC (Bld) 13.7 % Low 19-41 [facility] Comment on above: Performed By: #### L 100.0100, L500.2500 #### [facility] [address] [place], [address] MCH (RBC) [Entitic mass] 29.4 pg Normal 27.0-32.0 [facility] Comment on above: Performed By: #### L 100.0100, L500.2500 #### [facility] [address] [place], [address] MCHC (RBC) [Mass/Vol] 34.7 g/dL Normal 32-[address] [facility] Comment on above: Performed By: #### L 100.0100, L500.2500 #### [facility] [address] [place], [address] MCV (RBC) [Entitic vol] 84.7 fL Normal 80-94 [facility] Comment on above: Performed By: #### L 100.0100, L500.2500 #### [facility] [address] [place], [address] Monocytes/100 WBC (Bld) 9.8 % Normal 0-10 [facility] Comment on above: Performed By: #### L 100.0100, L500.2500 #### [facility] [address] [place], [address] Neutrophils/100 WBC (Bld) 73.9 % High 47-70 [facility] Comment on above: Performed By: #### L 100.0100, L500.2500 #### [facility] [address] [place], [address] Nucleated RBC (Bld) [#/Vol] 0 10*3/uL Normal 0-5 [facility] Comment on above: Performed By: #### L 100.0100, L500.2500 #### [facility] [address] [place], [address] Platelet mean volume (Bld) [Entitic vol] 9.6 fL Normal 6.2-12.0 [facility] Comment on above: Performed By: #### L 100.0100, L500.2500 #### [facility] [address] [place], [address] Platelets (Bld) [#/Vol] 386 10*3/uL Normal 150-450 [facility] Comment on above: Performed By: #### L 100.0100, L500.2500 #### [facility] [address] [place], [address] RBC (Bld) [#/Vol] 4.97 10*6/uL Normal 4.6-6.2 [facility] Comment on above: Performed By: #### L 100.0100, L500.2500 #### [facility] [address] [place], [address] RDW SD 41.2 fl Normal 35.1-43.9 [facility] Comment on above: Performed By: #### L 100.0100, L500.2500 #### [facility] [address] [place], [address] WBC (Bld) [#/Vol] 7.8 10*3/uL Normal 4.4-11.0 [facility] Comment on above: Performed By: #### L 100.0100, L500.2500 #### [facility] [address] [place], [address] Carbon dioxide, total [Moles /volume] in Central venous bloodOrdered By: Kobe Pisano on 03-04-2025 CO2 [Moles/Vol] 24.1 mmol/L 21.0-32.0 [facility] Chloride assayOrdered By: Aleksandr Pisano on 03-04-2025 Chloride [Moles/Vol] 103 mmol/L 98-108 [facility] Comprehensive Metabolic Prof ilon 03-04-2025 Albumin [Mass/Vol] 4.1 g/dL Normal 3.5-5.0 [facility] Comment on above: Performed By: #### L 100.0100, L500.2500 #### [facility] [address] [place], [address] Albumin/Globulin [Mass ratio] 1.7 {ratio} Normal 0.9-2.4 [facility] Comment on above: Performed By: #### L 100.0100, L500.2500 #### [facility] [address] [place], [address] ALK PHOS 74 U/L Normal 40-129 [facility] Comment on above: Performed By: #### L 100.0100, L500.2500 #### [facility] [address] [place], [address] ALT [Catalytic activity/Vol] 10 U/L Normal <=46 [facility] Comment on above: Performed By: #### L 100.0100, L500.2500 #### [facility] [address] [place], [address] AST [Catalytic activity/Vol] 20 U/L Normal <=37 [facility] Comment on above: Performed By: #### L 100.0100, L500.2500 #### [facility] [address] [place], [address] Bilirubin [Mass/Vol] 0.65 mg/dL Normal 0.00-1.30 [facility] Comment on above: Performed By: #### L 100.0100, L500.2500 #### [facility] [address] [place], [address] BUN/CRE 10.1 RATIO Normal 10-20 [facility] Comment on above: Performed By: #### L 100.0100, L500.2500 #### [facility] [address] [place], [address] Calcium [Mass/Vol] 9.4 mg/dL Normal 7.6-11.0 [facility] Comment on above: Performed By: #### L 100.0100, L500.2500 #### [facility] [address] [place], [address] Chloride [Moles/Vol] 103 mmol/L Normal 98-108 [facility] Comment on above: Performed By: #### L 100.0100, L500.2500 #### [facility] [address] [place], [address] CO2 [Moles/Vol] 24.1 mmol/L Normal 21.0-32.0 [facility] Comment on above: Performed By: #### L 100.0100, L500.2500 #### [facility] [address] [place], [address] Creatinine [Mass/Vol] 0.83 mg/dL Normal 0.70-1.[address] [facility] Comment on above: Performed By: #### L 100.0100, L500.2500 #### [facility] [address] [place], [address] ECRCL 140.78 ml/min Normal 50-250 [facility] Comment on above: Performed By: #### L 100.0100, L500.2500 #### [facility] [address] [place], [address] GAP 10 Normal 5-15 [facility] Comment on above: Performed By: #### L 100.0100, L500.2500 #### [facility] [address] [place], [address] GFR/1.73 sq M.predicted among non-blacks MDRD (S/P/Bld) [Vol rate/Area] 128 mL/min/{1.73_m2} Normal >60 [facility] Comment on above: Result Comment: mL/m in/1.73m2 CKD-EPI Creatinine Equation (2020) Performed By: #### L 100.0100, L500.2500 #### [facility] [address] [place], [address] Globulin (S) [Mass/Vol] 2.4 g/dL Normal 2.2-4.2 [facility] Comment on above: Performed By: #### L 100.0100, L500.2500 #### [facility] [address] [place], [address] Glucose [Mass/Vol] 108 mg/dL High 70-99 [facility] Comment on above: Performed By: #### L 100.0100, L500.2500 #### [facility] [address] [place], [address] Potassium [Moles/Vol] 4.7 mmol/L Normal 3.3-5.[address] [facility] Comment on above: Performed By: #### L 100.0100, L500.2500 #### [facility] [address] [place], [address] Sodium [Moles/Vol] 137 mmol/L Normal 133-145 [facility] Comment on above: Performed By: #### L 100.0100, L500.2500 #### [facility] [address] [place], [address] T PROT 6.5 g/dL Normal 5.9-8.4 [facility] Comment on above: Performed By: #### L 100.0100, L500.2500 #### [facility] [address] [place], [address] Urea nitrogen [Mass/Vol] 8 mg/dL Normal 4-19 [facility] Comment on above: Performed By: #### L 100.0100, L500.2500 #### [facility] [address] [place], [address] Emergency Department Summary on 03-04-2025 Emergency Department Summary [facility] Medical Records Department [address] [place] [address] Emergency Department Summary 03/04/25 MR#: [id number] Acct: [id number] Name: JESSICA BARR Rep #: [id number] : 2005 19 From: Kobe Pisano DO [...] follow commands knew that he was at [facility] year is 2024 Skin: Warm, dry, [...] him followi (more content not included)... Normal [facility] Eosinophil percentageOrdered By: Kobe Pisano on 03-04-2025 Eosinophils/100 WBC (Bld) 1.7 % 0-5 [facility] Erythrocyte distribution wid th ratioOrdered By: Kobe Pisano on 03-04-2025 Erythrocyte distribution width (RBC) [Ratio] 13.3 % 11.6-14.6 [facility] Erythrocyte distribution wid th standard deviationOrdered By: Kobe Pisano on 03-04-2025 Erythrocyte distribution width (RBC) [Ratio] 41.2 fl 35.1-43.9 [facility] Glomerular filtration rate ( GFR) estimation/1.73 sq m using serum, plasma, or whole bOrdered By: Kobe Pisano on 03-04-2025 GFR/1.73 sq M.predicted among non-blacks MDRD (S/P/Bld) [Vol rate/Area] 128 mL/min/{1.73_m2} >60 [facility] Comment on above: mL/min/1.73m2 CKD-EP I Creatinine Equation (2020) Hematocrit Auto (Bld) [Volum e fraction]Ordered By: Kobe Pisano on 03-04-2025 Hematocrit (Bld) [Volume fraction] 42.1 % 40-54 [facility] Hemoglobin measurementOrdere d By: Kobe Pisano on 03-04-2025 Hemoglobin (Bld) [Mass/Vol] 14.6 g/dL 13.0-16.5 [facility] Immature granulocytes/100 WB C Auto (Bld)Ordered By: Kobe Pisano on 03-04-2025 Immature granulocytes/100 WBC (Bld) 0.300 % 0.0-0.9 [facility] Comment on above: IG% - Immature Granu locytes (promyelocytes, myelocytes and metamyelocytes) > 1% indicates that a LEFT SHIFT is Present. Ketones Test strip Ql (U)Ord ered By: Kobe Pisano on 03-04-2025 Ketones Ql (U) Negative Negative [facility] - Chemistry and C hemistry - challengeOrdered By: Kobe Pisano on 03-04-2025 AST [Catalytic activity/Vol] 20 U/L <38 [facility] MCV (mean corpuscular volume ) determinationOrdered By: Kobe Pisano on 03-04-2025 MCV (RBC) [Entitic vol] 84.7 fL 80-94 [facility] Mean corpuscular hemoglobin (MCH) determinationOrdered By: Kobe Pisano on 03-04-2025 MCH (RBC) [Entitic mass] 29.4 pg 27.0-32.0 [facility] Mean corpuscular hemoglobin concentration (MCHC) determinationOrdered By: Kobe Pisano on 03-04-2025 MCHC (RBC) [Mass/Vol] 34.7 g/dL 32-[address] [facility] Mean platelet volume determi nationOrdered By: Kobe Pisano on 03-04-2025 Platelet mean volume (Bld) [Entitic vol] 9.6 fL 6.2-12.0 [facility] Microscopic analysis of urin e for red blood cells (RBC)Ordered By: Kobe Pisano on 03-04-2025 Microscopic analysis of urine for red blood cells (RBC) 0 SEEN /hpf 0-5 [facility] Monocyte percentageOrdered B y: Kobe Pisano on 03-04-2025 Monocytes/100 WBC (Bld) 9.8 % 0-10 [facility] Mucus LM Ql (Urine sed)Order ed By: Kobe Pisano on 03-04-2025 Mucus Ql (Urine sed) 0 SEEN /hpf [facility] Neutrophil percentageOrdered By: Kobe Pisano on 03-04-2025 Neutrophils/100 WBC (Bld) 73.9 % High 47-70 [facility] Nitrite Test strip Ql (U)Ord ered By: Kobe Pisano on 03-04-2025 Nitrite Ql (U) Negative Negative [facility] Nucleated red blood cell per centageOrdered By: Kobe Pisano on 03-04-2025 Nucleated RBC/100 WBC (Bld) [Ratio] 0 % 0-5 [facility] Platelet countOrdered By: Aleksandr Pisano on 03-04-2025 Platelets (Bld) [#/Vol] 386 10*3/uL 150-450 [facility] Potassium measurement (mass/ volume)Ordered By: Kobe Pisano on 03-04-2025 Potassium (Unsp spec) [Mass/Vol] 4.7 mmol/L 3.3-5.1 [facility] Protein Test strip Ql (U)Ord ered By: Kobe Pisano on 03-04-2025 Protein Ql (U) 15 mg/dl High Negative [facility] RBC Auto (Bld) [#/Vol]Ordere d By: Kobe Pisano on 03-04-2025 RBC (Bld) [#/Vol] 4.97 10*6/uL 4.6-6.2 [facility] Serum creatinine measurement (mass/volume)Ordered By: Kobe Pisano on 03-04-2025 Creatinine [Mass/Vol] 0.83 mg/dL 0.70-1.[address] [facility] Serum globulin measurementOr dered By: Kobe Pisano on 03-04-2025 Globulin (S) [Mass/Vol] 2.4 g/dL 2.2-4.2 [facility] Serum glucose measurement (m ass/volume)Ordered By: Kobe Pisano on 03-04-2025 Glucose [Mass/Vol] 108 mg/dL High 70-99 [facility] Serum or plasma alanine duval otransferase (ALT) measurementOrdered By: Kobe Pisano on 03-04-2025 ALT [Catalytic activity/Vol] 10 U/L <47 [facility] Serum or plasma albumin erica urement (mass/volume)Ordered By: Kobe Pisano on 03-04-2025 Albumin [Mass/Vol] 4.1 g/dL 3.5-5.0 [facility] Serum or plasma albumin/glob ulin mass ratioOrdered By: Kobe Pisano on 03-04-2025 Albumin/Globulin [Mass ratio] 1.7 {ratio} 0.9-2.4 [facility] Serum or plasma alkaline memo sphatase measurementOrdered By: Kobe Pisano on 03-04-2025 ALP [Catalytic activity/Vol] 74 U/L 40-129 [facility] Serum or plasma calcium erica urement (mass/volume)Ordered By: Kobe Pisano on 03-04-2025 Calcium [Mass/Vol] 9.4 mg/dL 7.6-11.0 [facility] Serum or plasma urea nitroge n measurement (mass/volume)Ordered By: Kobe Pisano on 03-04-2025 Urea nitrogen [Mass/Vol] 8 mg/dL 4-19 [facility] Sodium levelOrdered By: Severo Pisano on 03-04-2025 Sodium [Moles/Vol] 137 mmol/L 133-145 [facility] Squamous epithelial cells de tection in urine sediment by light microscopyOrdered By: Kobe Pisano on 03-04-2025 Epithelial cells.squamous LM Ql (Urine sed) 0 SEEN /hpf 0-5 [facility] Testicular with Arterial Ervin won 03-04-2025 Testicular with Arterial Flow [facility] Imaging Services [address] [place], [place] [address] Testicular with Arterial Flow MR#: [id number] Acct: [id number] Name: JESSICA BARR Rep #: [id number] : 2005 M 19 From: Mauricio Schrader PCP: JUAN DANIEL BrownC Status: REG ER Study: Testicular with Arterial Flow Date of Exam: Exam# [id number] Ordering Dr: Kobe Pisano DO PROCEDURE: TESTICULAR [...] testicular torsion. Small right-sided hydrocele. Reading Location: [facility] CC: ALEJANDRO Mosher; Dr. Kobe Pisano, Panel Gluer: Signed Normal [facility] Total proteinOrdered By: Yaquelin Pisano on 03-04-2025 Protein [Mass/Vol] 6.5 g/dL 5.9-8.4 [facility] Urinalysis, Completeon 03-04 AMORPHOUS 1+ Normal [facility] Comment on above: Order Comment: CLEAN CATCH Performed By: #### L 100.0100 #### [facility] [address] [place], [address] BACTERIA 0 SEEN Normal None Seen [facility] Comment on above: Order Comment: CLEAN CATCH Performed By: #### L 100.0100 #### [facility] [address] [place], [address] EPI,SQUAMOUS 0 SEEN Normal 0-5 [facility] Comment on above: Order Comment: CLEAN CATCH Performed By: #### L 100.0100 #### [facility] [address] [place], [address] Mucus Ql (Urine sed) 0 SEEN Normal [facility] Comment on above: Order Comment: CLEAN CATCH Performed By: #### L 100.0100 #### [facility] [address] [place], [address] RBC 0 SEEN Normal 0-5 [facility] Comment on above: Order Comment: CLEAN CATCH Performed By: #### L 100.0100 #### [facility] [address] [place], [address] WBC 0 SEEN Normal 0-5 [facility] Comment on above: Order Comment: CLEAN CATCH Performed By: #### L 100.0100 #### [facility] [address] [place], [address] Urine clarityOrdered By: Yaquelin Pisano on 03-04-2025 Clarity (U) Clear Clear [facility] Urine color determinationOrd ered By: Kobe Pisano on 03-04-2025 Color (U) Yellow Yellow [facility] Urine glucose detectionOrder ed By: Kobe Pisano on 03-04-2025 Glucose Ql (U) Normal mg/dl Normal [facility] Urine leukocyte esterase det ection by dipstickOrdered By: Kobe Pisano on 03-04-2025 Leukocyte esterase Test strip Ql (U) Negative Negative [facility] Urine pHOrdered By: Kobe florence on 03-04-2025 pH (U) 8.0 [pH] 5.0 - 8.0 [facility] Urine sediment bacteria coun t by microscopy (number/high power field)Ordered By: Kobe Pisano on 03-04-2025 Bacteria LM.HPF (Urine sed) [#/Area] 0 /[HPF] None Seen [facility] Urine specific gravity measu rementOrdered By: Kobe Pisano on 03-04-2025 Specific gravity (U) [Rel density] 1.015 1.002-1.03 0 [facility] Urine urobilinogen measureme ntOrdered By: Kobe Pisano on 03-04-2025 Urobilinogen Ql (U) Normal mg/dl Normal [facility] White blood cell (WBC) count Ordered By: Kobe Pisano on 03-04-2025 WBC (Bld) [#/Vol] 7.8 10*3/uL 4.4-11.0 [facility] White blood cell countOrdere d By: Kobe Pisano on 03-04-2025 White blood cell count 0 SEEN /hpf 0-5 [facility] CNPNon 02-08-2025 CNPN Telephone (AGPOB1) -- MIKEJESSICA STEINER ([id number]) 1 M Date Time Provider Department 02/08/25 [...] which facility was the patient seen at: [facility] bath Was an appointment scheduled (Y/N): N Person calling if other than patient: N Return call to if other than patient: N Best contact number: [phone] Thank you, Mario Kay February 08, 2025 [...] alcohol consumption [Z87.898] 03/03/2024 Encounter Status:Closed by YULISANJ BANDAGE WINDING MACHINE OPERATOR PPGCONSUELOELIZABETH Arevalo on 02/13/25 [facility] ALLIED HEALTHon 02-07-2025 ALLIED HEALTH HNO ID: [id number] Author: ANGELO RAMAN RT(R) Service: Radiology Author [...] PATIENT PRESENTS WITH AN IMPLANTABLE OR ATTACHED PEEL OVEN TENDER: No RADIOLOGY DEPARTMENT: General X-ray: Exam(s) Completed: Upper Extremity X-Ray(s): Elbow, left PERIPHERAL IV DATA: Not applicable SIGNED BY: RT Earl(R) February 07, 2025 7:44 AM [facility] ED NOTEon 02-07-2025 ED NOTE HNO ID: [id number] Author: KAM WINKLER RN Service: Emergency Medicine [...] DATE: February 08, 2025 TIME: 10:09 AM [facility] ED NOTE HNO ID: [id number] Author: MILY MUNSON RN Service: Emergency Medicine Author Type: Registered Nurse Type: ED Notes Filed: 02/07/2025 08:41 Note Text: Pt verbalized understanding of home going instructions. [facility] ED NOTE HNO ID: [id number] Author: MILY MUNSON RN Service: Emergency Medicine Author Type: Registered Nurse Type: ED Notes Filed: 02/07/2025 07:23 Note Text: Pt c/o several weeks of numbness/tingling of left arm. Denies injury to left arm or neck. Securities Attorney equal and firm. Equal pulses present. [facility] ED PROV NOTEon 02-07-2025 ED PROV NOTE HNO ID: [id number] Author: GIRMA BOYD DO Service: Emergency Medicine [...] Grandmother - Coronary Artery Disease Maternal Grandfather [place] - Coronary Artery Disease Paternal Grandfather DC - Breast Cancer Other Social History Tobacco [...] motion of the elbow shoulder and wrist. Child Welfare Consultant strength intact. Intrinsic muscles of the hand [...] injuries all (more content not included)... Normal [facility] XR ELBOW 2V AP/LAT LTon 06- XR ELBOW 2V AP/LAT LT * * [...] erosion. Joint spaces are maintained. IMPRESSION: Unremarkable. Panel Gluer: ISAAC Transcribe Date/Time: Feb 07 2025 7:53A Dictated by : SHASHA HOUSE MD This examination was interpreted and the report reviewed and electronically signed by: SHASHA HOUSE MD on Feb 07 2025 7:54AM EST [id number] Normal [facility] Emergency Department Summary on 01-29-2025 Emergency Department Summary [facility] Medical Records Department [address] [place] [address] Emergency Department Summary 01/29/25 MR#: [id number] Acct: [id number] Name: JESSICA BARR Rep #: [id number] : 2005 19 From: Lupillo Alvarado MD [...] similar symptoms: No Recent Illness/Hospitalization: No PFSH [facility] Medical History Depression Anxiety Home Medications ???Medication [...] oriented x3 and CN's II-XII intact bilaterally [place] Coma Scale: document GCS findings Spontaneous Obeys Commands Oriented (more content not included)... Normal [facility] 36on 10-18-2024 36 Pt seen in [...] a reminder for OPTIONAL repeat imaging. Normal [facility] XR WRIST MINIMUM [address] [facility] 08-11-2024 XR WRIST MINIMUM 3 VIEWS RIGHT [...] 3:52:26 PM Ordering Provider: DARREN CRONIN [facility] Culture, Blood (WB)on 2023 C[facility] Blood cultures x2 fr om two different sites No growth in 5 days. Normal [facility] Comment on above: Performed By: #### L 100.0100 #### [facility] [address] [place], [address] CBC W/Diff, Automatedon 05-09 PATH REV Reviewed Normal [facility] Comment on above: Result Comment: Neut rophilic left shift. Thrombocytosis. Clinical correlation necessary. Casimiro Wynn M.D. 06/02/24 AMENDED REPORT 06/02/24 1410 PATH REV previously reported as: January foll Performed By: #### L 100.0100, L500.2500 #### [facility] [address] [place], [place], [address] PATH REV Reviewed Normal [facility] Comment on above: Result Comment: Neut rophilic leukocytosis. Normocytic anemia. Thrombocytosis. Clinical correlation necessary. Casimiro Wynn M.D. 06/02/24 AMENDED REPORT 06/02/24 1407 PATH REV previously reported as: January foll Performed By: #### L 100.0100, L500.2500 #### [facility] [address] [place], [address] Basic Metabolic Profile (BMP )on 06-01-2024 BUN/CRE 24.5 RATIO High 10-20 [facility] Comment on above: Performed By: #### L 100.0100, L500.2500 #### [facility] [address] [place], [address] CA,Total 8.7 mg/dL Normal 8.5-10.1 [facility] Comment on above: Performed By: #### L 100.0100, L500.2500 #### [facility] [address] [place], [address] Chloride [Moles/Vol] 109 mmol/L High 98-107 [facility] Comment on above: Performed By: #### L 100.0100, L500.2500 #### [facility] [address] [place], [address] CO2 [Moles/Vol] 26.0 mmol/L Normal 21.0-32.0 [facility] Comment on above: Performed By: #### L 100.0100, L500.2500 #### [facility] [address] [place], [address] Creatinine [Mass/Vol] 0.70 mg/dL Normal 0.70-1.[address] [facility] Comment on above: Result Comment: The validity of the calculated GFR GFRAA in patients over 70 years has not been determined. Clinical correlation is essential. Performed By: #### L 100.0100, L500.2500 #### [facility] [address] [place], [address] ECRCL 166.93 ml/min Normal [facility] Comment on above: Performed By: #### L 100.0100, L500.2500 #### [facility] [address] [place], [address] EST GFR - AA 184 mL/min Normal >60 [facility] Comment on above: Result Comment: Afri can Congolese GFR Calc Performed By: #### L 100.0100, L500.2500 #### [facility] [address] [place], [address] GAP 5 Normal 5-15 [facility] Comment on above: Performed By: #### L 100.0100, L500.2500 #### [facility] [address] [place], [address] GFR/1.73 sq M.predicted among non-blacks MDRD (S/P/Bld) [Vol rate/Area] 152 mL/min/{1.73_m2} Normal >60 [facility] Comment on above: Result Comment: Non- GFR Calc Performed By: #### L 100.0100, L500.2500 #### [facility] [address] [place], [address] Glucose [Mass/Vol] 114 mg/dL High 74-106 [facility] Comment on above: Result Comment: Fast ing Glucose result from 100 to 125 mg/dL suggests IMPAIRED HOMEOSTASIS per A.D.A. criteria. Performed By: #### L 100.0100, L500.2500 #### [facility] [address] [place], [address] Potassium [Moles/Vol] 4.3 mmol/L Normal 3.5-5.[address] [facility] Comment on above: Performed By: #### L 100.0100, L500.2500 #### [facility] [address] [place], [address] Sodium [Moles/Vol] 140 mmol/L Normal 136-145 [facility] Comment on above: Performed By: #### L 100.0100, L500.2500 #### [facility] [address] [place], [address] Urea nitrogen [Mass/Vol] 17 mg/dL Normal 7-18 [facility] Comment on above: Performed By: #### L 100.0100, L500.2500 #### [facility] [address] [place], [address] Culture, Throaton 06-01-2024 CUT Normal throat mary isolated. No beta-hemolytic streptococcus isolated. Normal [facility] Comment on above: Performed By: #### L 100.0100 #### [facility] [address] [place], [place], [address] Soft Tissue Neck WITH Contra ston 06-01-2024 Soft Tissue Neck WITH Contrast [facility] Imaging Services [address] [place] [address] Soft Tissue Neck WITH Contrast MR#: [id number] Acct: [id number] Name: JESSICA BARR Rep #: [id number] : 2005 M 19 From: Servando addison MD PCP: Care Physician,No Primary Status: ADM IN Study: Soft Tissue Neck WITH Contrast Date of Exam: 0 06/01/24 Exam# [id number] Ordering Dr: Yuriy Ding MD [id number] STUDY: CT SOFT TISSUE NECK WITH CONTRAST [...] FINDINGS: Normal bilateral parotid glands. Normal bilateral family nurse practitioner spaces. Normal bilateral parapharyngeal spaces. Normal bilateral [...] 8:30 EDT Reading Location ID and State: [address] [place] [address] , Service support , CC: Dr. Yuriy Ding MD; No Primary Care Physician Panel Gluer: Signed Normal [facility] Basic Metabolic Profile (BMP )on 05-31-2024 BUN/CRE 19.6 RATIO Normal 10-20 [facility] Comment on above: Performed By: #### L 500.2500, L100.0100 #### [facility] [address] [place], [address] CA,Total 9.1 mg/dL Normal 8.5-10.1 [facility] Comment on above: Performed By: #### L 500.2500, L100.0100 #### [facility] [address] [place], [address] Chloride [Moles/Vol] 105 mmol/L Normal 98-107 [facility] Comment on above: Performed By: #### L 500.2500, L100.0100 #### [facility] [address] [place], [address] CO2 [Moles/Vol] 25.0 mmol/L Normal 21.0-32.0 [facility] Comment on above: Performed By: #### L 500.2500, L100.0100 #### [facility] [address] [place], [address] Creatinine [Mass/Vol] 0.61 mg/dL Low 0.70-1.[address] [facility] Comment on above: Result Comment: The validity of the calculated GFR GFRAA in patients over 70 years has not been determined. Clinical correlation is essential. Performed By: #### L 500.2500, L100.0100 #### [facility] [address] [place], [address] ECRCL 191.56 ml/min Normal [facility] Comment on above: Performed By: #### L 500.2500, L100.0100 #### [facility] [address] [place], [address] EST GFR - AA 213 mL/min Normal >60 [facility] Comment on above: Result Comment: Afri can Congolese GFR Calc Performed By: #### L 500.2500, L100.0100 #### [facility] [address] [place], [address] GAP 5 Normal 5-15 [facility] Comment on above: Performed By: #### L 500.2500, L100.0100 #### [facility] [address] [place], [address] GFR/1.73 sq M.predicted among non-blacks MDRD (S/P/Bld) [Vol rate/Area] 176 mL/min/{1.73_m2} Normal >60 [facility] Comment on above: Result Comment: Non- GFR Calc Performed By: #### L 500.2500, L100.0100 #### [facility] [address] [place], [address] Glucose [Mass/Vol] 151 mg/dL High 74-106 [facility] [place] Comment on above: Result Comment: Fast ing Glucose result greater than or equal to 126 mg/dL suggests DIABETES MELLITUS per A.D.A. criteria. Performed By: #### L 500.2500, L100.0100 #### [facility] [address] [place], [address] Potassium [Moles/Vol] 4.2 mmol/L Normal 3.5-5.[address] [facility] Comment on above: Performed By: #### L 500.2500, L100.0100 #### [facility] [address] [place], [address] Sodium [Moles/Vol] 135 mmol/L Low 136-145 [facility] [place] Comment on above: Performed By: #### L 500.2500, L100.0100 #### [facility] [address] [place], [address] Urea nitrogen [Mass/Vol] 12 mg/dL Normal 7-18 [facility] Comment on above: Performed By: #### L 500.2500, L100.0100 #### [facility] [address] [place], [address] CBC W/Diff, Automatedon 05-09 SMEAR COMMENT SCANNED Normal [facility] Comment on above: Result Comment: NEUT ROPHILLIA PRESENT Performed By: #### L 500.2500, L100.0100 #### [facility] [address] [place], [address] Basic Metabolic Profile (BMP )on 05-30-2024 BUN/CRE 17.7 RATIO Normal 10-20 [facility] Comment on above: Performed By: #### L 100.0100, L500.2500 #### [facility] [address] [place], [address] CA,Total 9.6 mg/dL Normal 8.5-10.1 [facility] Comment on above: Performed By: #### L 100.0100, L500.2500 #### [facility] [address] [place], [address] Chloride [Moles/Vol] 104 mmol/L Normal 98-107 [facility] Comment on above: Performed By: #### L 100.0100, L500.2500 #### [facility] [address] [place], [address] CO2 [Moles/Vol] 27.0 mmol/L Normal 21.0-32.0 [facility] Comment on above: Performed By: #### L 100.0100, L500.2500 #### [facility] [address] [place], [address] Creatinine [Mass/Vol] 0.74 mg/dL Normal 0.70-1.[address] [facility] Comment on above: Result Comment: The validity of the calculated GFR GFRAA in patients over 70 years has not been determined. Clinical correlation is essential. Performed By: #### L 100.0100, L500.2500 #### [facility] [address] [place], [address] ECRCL 157.91 ml/min Normal [facility] Comment on above: Performed By: #### L 100.0100, L500.2500 #### [facility] [address] [place], [address] EST GFR - AA 173 mL/min Normal >60 [facility] Comment on above: Result Comment: Afri can Congolese GFR Calc Performed By: #### L 100.0100, L500.2500 #### [facility] [address] [place], [address] GAP 7 Normal 5-15 [facility] Comment on above: Performed By: #### L 100.0100, L500.2500 #### [facility] [address] [place], [address] GFR/1.73 sq M.predicted among non-blacks MDRD (S/P/Bld) [Vol rate/Area] 143 mL/min/{1.73_m2} Normal >60 [facility] Comment on above: Result Comment: Non- GFR Calc Performed By: #### L 100.0100, L500.2500 #### [facility] [address] [place], [address] Glucose [Mass/Vol] 122 mg/dL High 74-106 [facility] [place] Comment on above: Result Comment: Fast ing Glucose result from 100 to 125 mg/dL suggests IMPAIRED HOMEOSTASIS per A.D.A. criteria. Performed By: #### L 100.0100, L500.2500 #### [facility] [address] [place], [address] Potassium [Moles/Vol] 4.2 mmol/L Normal 3.5-5.[address] [facility] Comment on above: Performed By: #### L 100.0100, L500.2500 #### [facility] [address] [place], [address] Sodium [Moles/Vol] 138 mmol/L Normal 136-145 [facility] [place] Comment on above: Performed By: #### L 100.0100, L500.2500 #### [facility] [address] [place], [address] Urea nitrogen [Mass/Vol] 13 mg/dL Normal 7-18 [facility] Comment on above: Performed By: #### L 100.0100, L500.2500 #### [facility] [address] [place], [address] CBC W/Diff, Automatedon 09-2 SMEAR COMMENT COMMENT Normal [facility] Comment on above: Result Comment: NEUT ERICLIDavy. Performed By: #### L 100.0100, L500.2500 #### [facility] [address] [place], [address] Emergency Department Summary on 05-30-2024 Emergency Department Summary [facility] Medical Records Department [address] [place] [address] Emergency Department Summary 05/30/24 MR#: [id number] Acct: [id number] Name: JESSICA BARR Rep #: [id number] : 2005 19 From: Gerhard Maldoando DO PCP: Care Physician,No Primary Status:REG ER [...] CT o (more content not included)... Normal [facility] H AND P Exam - Hospitaliston 05-30-2024 H&P Exam - Hospitalist [facility] Medical Records Department [address] [place] [address] H P Exam - Hospitalist 05/30/24 1724 MR#: [id number] Acct: [id number] Name: JESSICA BARR Rep #: [id number] : 2005 19 From: Felecia Roland MD PCP: Care Physician,No Primary Status:ADM IN Location: ICU ICU10-1 HPI - General General Date of Admission: 05/30/24 Date of Service: 05/30/24 Chief Complaint: Right sided neck pain and swelling HPI Narrative JESSICA BARR, is a 19 M with history of tobacco use presented to [facility] ED with right neck pain and [...] 90.2 H, Lymph % (Auto) 3.9 L, [place] % (Auto) 4.5, Eos % (Auto) 0.0, [...] L, Alkali (more content not included)... Normal [facility] Liver Profileon 05-30-2024 Albumin [Mass/Vol] 3.5 g/dL Normal 3.2-5.0 [facility] [place] Comment on above: Performed By: #### L 100.0100, L500.2500 #### [facility] [address] [place], [address] ALK P 94 U/L Normal 45-117 [facility] Comment on above: Performed By: #### L 100.0100, L500.2500 #### [facility] [address] [place], [address] ALT [Catalytic activity/Vol] 15 U/L Low 16-61 [facility] Comment on above: Performed By: #### L 100.0100, L500.2500 #### [facility] [address] [place], [address] AST [Catalytic activity/Vol] 9 U/L Low 15-37 [facility] Comment on above: Performed By: #### L 100.0100, L500.2500 #### [facility] [address] [place], [address] Bilirubin [Mass/Vol] 0.50 mg/dL Normal 0.20-1.00 [facility] Comment on above: Result Comment: For patients on eltrombopag therapy, use of Dimension [place] TBIL is not recommended. Performed By: #### L 100.0100, L500.2500 #### [facility] [address] [place], [address] Bilirubin.direct [Mass/Vol] 0.17 mg/dL Normal 0.00-0.30 [facility] Comment on above: Performed By: #### L 100.0100, L500.2500 #### [facility] [address] [place], [address] Globulin (S) [Mass/Vol] 4.4 g/dL High 2.2-4.2 [facility] Comment on above: Performed By: #### L 100.0100, L500.2500 #### [facility] [address] [place], [address] T PROT 7.9 g/dL Normal 6.4-8.2 [facility] Comment on above: Performed By: #### L 100.0100, L500.2500 #### [facility] [address] [place], [address] Operative Reporton 4 Operative Report [facility] Medical Records Department [address] [place] [address] Operative Report 05/30/24 1531 MR#: [id number] Acct: [id number] Name: JESSICA BARR Rep #: [id number] : 2005 19 From: Yuriy Ding MD [...] MD; No Primary Care Physician Signed Normal [facility] Soft Tissue Neck WITH Contra ston 05-30-2024 Soft Tissue Neck WITH Contrast [facility] Imaging Services [address] [place] [id number] Soft Tissue Neck WITH Contrast MR#: [id number] Acct: [id number] Name: JESSICA BARR Rep #: [id number] : 2005 M 19 From: Servando addison MD PCP: Care Physician,No Primary Status: REG ER Study: Soft Tissue Neck WITH Contrast Date of Exam: 0 05/30/24 Exam# [id number] Ordering Dr: Gerhard Maldonado DO [id number] STUDY: CT SOFT TISSUE NECK WITH CONTRAST [...] FINDINGS: Normal bilateral parotid glands. Normal bilateral family nurse practitioner spaces. Normal bilateral parapharyngeal spaces. Normal bilateral [...] Gerhard Maldonado, DO; No Primary Care Physician Panel Gluer: Signed Normal [facility] Emergency Department Summary on 05-27-2024 Emergency Department Summary [facility] Medical Records Department [address] [place] [address] Emergency Department Summary 05/27/24 MR#: [id number] Acct: [id number] Name: JESSICA BARR Rep #: [id number] : 2005 19 From: Jacques Paul MD [...] guarding Back/Spine (more content not included)... Normal [facility] CBC W/Diff, Automatedon 05-08 PATH REV Reviewed Normal [facility] Comment on above: Result Comment: Neut rophilic leukocytosis. Clinical correlation necessary. Casimiro Wynn M.D. 05/26/24 AMENDED REPORT 05/26/24 1506 PATH REV previously reported as: January Performed By: #### L 100.0100, L500.2500 #### [facility] [address] [place], [address] Emergency Department Summary on 05-25-2024 Emergency Department Summary [facility] Medical Records Department [address] [place] [address] Emergency Department Summary 05/25/24 MR#: [id number] Acct: [id number] Name: JESSICA BARR Rep #: [id number] : 2005 19 From: Lupillo Alvarado MD [...] either. M (more content not included)... Normal [facility] [place] 05-25-2024 Monocytes (Bld) [#/Vol] Positive Abnormal Negative [facility] Comment on above: Performed By: #### L 100.0100, L500.2500 #### [facility] [address] [place], [place], [address] Neck for Soft Tissueon 05-25 Neck for Soft Tissue [facility] Imaging Services [address] [place], [place] [address] Neck for Soft Tissue MR#: [id number] Acct: [id number] Name: JESSICA BARR Rep #: [id number] : 2005 M 19 From: Servando addison MD PCP: Care Physician,No Primary Status: REG ER Study: Neck for Soft Tissue Date of Exam: 05/25/24 Exam# [id number] Ordering Dr: Lupillo Alvarado MD [id number] STUDY: X-RAY - SOFT TISSUE NECK REASON [...] Lupillo Alvarado MD; No Primary Care Physician Panel Gluer: Signed [facility] Office Visit ([facility] ) -- CORTNEYJESSICA Irina ([id number]) 1 M Date Time Provider Department 05/13/24 12:15 PM IVONNE COOPER [facility] During your visit today, we recorded the following information about you: Temperature Pulse Respiration Blood pressure 99 degrees 111/minute 20/minute 115/76 Weight 79 kg Ivonne Cooper APRN.[employer] 05/13/2024 12:37 PM Signed Subjective Fever Associated symptoms include headaches and sore throat. Pertinent negatives include no chest pain, no diarrhea, no vomiting, no congestion and no cough. Jessica Arevalo Mikejatin is a 19 year old male who [...] Maternal Grandmother Coronary Artery Disease Maternal Grandfather DC Coronary Artery Disease Paternal Grandfather DC Breast Cancer Other Social History Tobacco Use [...] course of illness Ivonne Cooper APRN.Ivonne Otto APRN.BENNY 05/13/2024 12:37 PM Signed ASSESSMENT/PLAN: 1. Sore [...] care wit (more content not included)... Normal [facility] COVID AND INFLUENZA A/B AND RSV PCR, ROUTINEon 05-13-2024 SARS-CoV-2 (COVID-19) RNA TRAY+probe Ql (Unsp spec) SARS-COV-2 (AGENT OF COVID-19) RNA: Not detected INFLUENZA A RNA: Not detected INFLUENZA B RNA: Not detected RESPIRATORY SYNCYTIAL VIRUS (RSV) RNA: Not detected Normal [facility] Comment on above: Performed By: #### C VFLRS ####[facility] LABCLIA [id number] [place] [address] [place] STREP A MOLECULAR (POC)on Procedural Control Valid [facility] Strep A (POCT) Negative Negative [facility] CNOVon 04-26-2024 CNOV Office Visit (UCWSTR ) -- JESSICA BARR ([id number]) 1 M Date Time Provider Department 04/26/24 2:15 PM LUL BROWN [facility] During your visit today, we recorded the following information about you: Temperature Pulse Respiration Blood pressure 98.5 degrees 85/minute 20/minute 129/89 Weight 78 kg Lul Brown, TJ.[employer] 04/26/2024 2:14 PM Signed Subjective HPI Nontoxic-appearing [...] Maternal Grandmother Coronary Artery Disease Maternal Grandfather DC Coronary Artery Disease Paternal Grandfather DC Breast Cancer Other Social History Tobacco Use [...] for discharge (more content not included)... Normal [facility] CNOVon 03-18-2024 CNOV Office Visit (UCWSTR ) -- JESSICA BARR ([id number]) 1 M Date Time Provider Department 03/18/24 1:15 PM LAVERNE ZAMBRANO [facility] During your visit today, we recorded the following information about you: Temperature Pulse Respiration Blood pressure 97.1 degrees 78/minute 16/minute 128/68 Weight 79 kg Laverne Zambrano APRN.BENNY 03/18/2024 2:15 PM Signed Subjective HPI HPI Jessica Arevalo Cortney is a 18 year old male who [...] Maternal Grandmother Coronary Artery Disease Maternal Grandfather DC Coronary Artery Disease Paternal Grandfather DC Breast Cancer Other Social History Tobacco Use [...] HENT: Head: Normocephalic and atraumatic. Mouth/Throat: Lips: [place]. Mouth: Mucous membranes are moist. Pharynx: Uvula [...] - STREP A MOLECULAR (POC) Laverne Zambrano APRN.[employer] Allergies As of Date: 03/18/2024 (No Known Allergies) Date Reviewed: 03/18/2024 Reviewed by: Kimberly Jackson - Fully Assessed Reason for Visit: Sore Throat [200] Cmt: Cough x2 mths Primary Visit Diagnosis:Subacute cough [R05.2] Other Visit Diagnosis:Sore throat [J02.9] Order(s):STREP A MOLECULAR (POC) [8385360] Order #: [id number]. #:[id number] 3-LAB XR CHEST 2V FRONTAL/LAT [2485355] Order #: [id number]. #:[id number] predniSONE (DELTASONE) 20 mg tabletTake 2 tablets [...] Encounter Status:Closed by LAVERNE ZAMBRANO on 03/18/24 [facility] STREP A MOLECULAR (POC)on Procedural Control Valid [facility] Strep A (POCT) Negative Negative [facility] XR CHEST 2V FRONTAL/LATon XR CHEST 2V [...] tissues: Unremarkable. IMPRESSION: No acute radiographic abnormality. Panel Gluer: [facility] Transcribe Date/Time: Mar 18 2024 1:26P Dictated by : SIELA GARCÍA MD This examination was interpreted and the report reviewed and electronically signed by: ISELA GARCÍA MD on Mar 18 2024 1:26PM EST [id number] Normal [facility] XR Chest PA and Lateralon IMPRESSION: No acute radiographic abnormality. Panel Gluer: [facility] Transcribe Date/Time: Mar 18 2024 1:26P Dictated [...] soft tissues: Unremarkable. DIVISION OF RADIOLOGY Provider, Roberto Bland - 03/18/2024 * * *Final Report* * [...] Unremarkable. IMPRESSION IMPRESSION: No acute radiographic abnormality. Panel Gluer: [facility] Transcribe Date/Time: Mar 18 2024 1:26P Dictated by : ISELA GARCÍA MD This examination was interpreted and the report reviewed and electronically signed by: ISELA GARCÍA MD on Mar 18 2024 1:26PM EST [facility] Radiology Study observation (narrative) [facility] XR Chest PA and LateralOrder ed By: [facility]cf Provider on 03-18-2024 [facility] CNOVon 03-03-2024 CNOV Office Visit (INTMWS ) -- JESSICA BARR ([id number]) 1 M Date Time Provider Department 03/03/24 2:20 PM PRAKASH ZHAO INTMWS During your visit today, we recorded the following information about you: Temperature Pulse Respiration Blood pressure 98.6 degrees 84/minute 18/minute 122/74 Weight 78.5 kg Prakash Zhao MD 03/03/2024 3:38 PM Signed This note was created using Entefyriter. Subjective Jessica Barr is a 18 year [...] Prakash Zhao MD Referring Provider: PRAKASH ZHAO [[id number]] Allergies As of Date: 03/03/2024 (No Known Allergies) Date Reviewed: 03/03/2024 Reviewed by: Myrna Vick LPN - Fully Assessed Reason for Visit: Discussion [813] Primary Visit Diagnosis:Tobacco use disorder [F17.200] Other Visit Diagnosis:History of heavy alcohol consumption [Z87.898] Order(s):buPROPion XL (WELLBUTRIN XL) 150 mg 24 hr tabletTake 1 tablet by mouth once daily.Disp: 30 tabletRfl: 0 BEHAVIORAL HEALTH SCREENING [2724199] Order #: [id number]: 1 Prescriptions as of 03/03/2024 - buPROPion [...] for Encounter Date Provider Department Center 03/03/2024 53671-RYMUDIGCQPRAKASH ZHAO INTMWS [facility] [place] Encounter Status:Closed by PRAKASH ZHAO on 03/03/24 [facility] CNOVon 02-29-2024 CNOV Office Visit (UCWSTR ) -- JESSICA BARR ([id number]) 1 M Date Time Provider Department 02/29/24 11:30 AM MIRIAM WATSON [facility] During your visit today, we recorded the following information about you: Temperature Pulse Respiration Blood pressure 97.5 degrees 88/minute 16/minute 122/70 Weight 79.3 kg Miriam Watson PA-C 02/29/2024 11:[address] Zhao follow up for smoking cessation Dayquil/Nyquil otc for cold symptoms If not better inone we e sen again Miriam Watson PA-C 02/29/2024 [...] Maternal Grandmother Coronary Artery Disease Maternal Grandfather DC Coronary Artery Disease Paternal Grandfather DC Breast Cancer Other Social History Tobacco Use [...] Diagnosis:Viral illness [B34.9] Order(s):STREP A MOLECULAR (POC) [7027419] Order #: [id number]. #:[id number] 1-LAB Prescriptions as of 02/29/2024 - miconazole [...] Status:Closed by MIRIAM WATSON on 02/29/24 Normal [facility] STREP A MOLECULAR (POC)on Procedural Control Valid [facility] Strep A (POCT) Negative Negative [facility] CNOVon 01-29-2024 CNOV Office Visit (UCWSTR ) -- JESSICA BARR ([id number]) 1 Date Time Provider Department 01/29/24 8:30 AM IVONNE COOPER [facility] During your visit today, we recorded [...] when possible. To treat ahtlete?s foot, use bwvw-qeh-hyxsywj medicated foot powder or cream such as [...] after one week of treatment. Ivonne Cooper APRN.[facility] 01/29/2024 8:56 AM Signed Subjective Pain (foot) [...] Maternal Grandmother Coronary Artery Disease Maternal Grandfather DC Coronary Artery Disease Paternal Grandfather DC Breast Cancer Other Social History Tobacco Use [...] Discussed expected course of illness Ivonne Cooper APRN.[employer] Allergies As of D (more content not included)... Normal [facility] .Auto Diffon 03-11-2023 Basophil, Absolute 0.0 10 3/mcL Normal 0.0-0.2 [facility] ([place]) Comment on above: Performed By: #### C MP, CBC, GFR, ANEU, KRISTY KIMBLE MDW #### [address] [place], [place] [address] Basophils/100 WBC (Bld) 0.7 % Normal 0[facility]0-2.5 [facility] ([place] Comment on above: Performed By: #### C MP, CBC, GFR, ANEU, KRISTY KIMBLE, LEANNE #### [address] [place], [place] [address] Eosinophil, Absolute 0.2 10 3/mcL Normal 0.0-0.4 [facility] ([place]) Comment on above: Performed By: #### C MP, CBC, GFR, ANEU, ADIFF, LEANNE WAGNER #### [address] [address] Eosinophils/100 WBC (Bld) 3.9 % Normal 0.0-7.0 [facility] ([place] Comment on above: Performed By: #### C MP, CBC, GFR, ANEU, ADIFF, LIPLEANNE #### [address] [address] Lymphocyte, Absolute 1.1 10 3/mcL Normal 0.8-3.9 [facility] ([place]) Comment on above: Performed By: #### C MP, CBC, GFR, ANEU, ADIFF, LEANNE WAGNER #### [address] [address] Lymphocytes/100 WBC (Bld) 18.7 % Normal 10.0-50.0 [facility] ([place] Comment on above: Performed By: #### C MP, CBC, GFR, ANEU, ADIFF, LEANNE WAGNER #### [address] [address] Monocyte, Absolute 0.8 10 3/mcL Normal 0.2-1.0 [facility] ([place]) Comment on above: Performed By: #### C MP, CBC, GFR, ANEU, ADIFF, LEANNE WAGNER #### [address] [address] Monocytes/100 WBC (Bld) 14.2 % High 1.7-13.0 [facility] ([place] Comment on above: Performed By: #### C MP, CBC, GFR, ANEU, ADIFF, LEANNE WAGNER #### [address] [address] Neutrophils/100 WBC (Bld) 62.5 % Normal 37.0-80.0 [facility] ([place] Comment on above: Performed By: #### C MP, CBC, GFR, ANEU, ADIFF, LEANNE WAGNER #### [address] [address] .GFRon 03-11-2023 GFR 145 ml/min/1.73sqm [facility] ([place] Comment on above: Result Comment: GFR Population [...] CBC, GFR, ANEU, KRISTY KIMBLE MDW #### [address] [address] GFR Non- 119 ml/min/1.73sqm Normal [facility] ([place] Comment on above: Result Comment: GFR Population [...] CBC, GFR, ANEU, KRISTY KIMBLE MDW #### [address] [address] .MDWon 03-11-2023 Monocyte Distribution Width 18.08 Normal 0.00-20.00 [facility] ([place] Comment on above: Result Comment: For ED adult patients suspected of sepsis, MDW<=20.0 does not rule out sepsis or risk of sepsis Performed By: #### C MP, CBC, GFR, ANEU, ADKRISTY MERRILL MDW #### [place] [address] .NEUABSon 03-11-2023 Neutrophil, Absolute 3.5 10 3/mcL Normal 2.9-6.2 [facility] ([place]) Comment on above: Performed By: #### C MP, CBC, GFR, ANEU, ADKRISTY MERRILL MDW #### [place] [address] CBCon 03-11-2023 Erythrocyte distribution width (RBC) [Ratio] 13.0 % Normal 11.5-14.5 [facility] ([place] Comment on above: Performed By: #### C MP, CBC, GFR, ANEU, ADKRISTY MERRILL MDW #### [place] [address] Hematocrit (Bld) [Volume fraction] 42.1 % Normal 42.0-52.0 [facility] ([place] Comment on above: Performed By: #### C MP, CBC, GFR, ANEU, ADKRISTY MERRILL MDW #### [place] [address] Hgb 14.4 G/dL Normal 14.0-18.0 [facility] ([place] Comment on above: Performed By: #### C MP, CBC, GFR, ANEU, ADKRISTY MERRILL MDW #### [place] [address] MCH (RBC) [Entitic mass] 29.3 pg Normal 27.0-31.2 [facility] ([place] Comment on above: Performed By: #### C MP, CBC, GFR, ANEU, ADKRISTY MERRILL MDW #### [place] [address] MCHC 34.2 G/dL Normal 31.8-35.4 [facility] ([place] Comment on above: Performed By: #### C MP, CBC, GFR, ANEU, ADIFF, KRISTY, W #### [address] [address] MCV (RBC) [Entitic vol] 85.7 fL Normal 80.0-94.0 [facility] ([place] Comment on above: Performed By: #### C MP, CBC, GFR, ANEU, ADIFF, LIP, W #### [address] [address] Platelet 322 10 3/mcL Normal [facility] ([place] Comment on above: Performed By: #### C MP, CBC, GFR, ANEU, ADIFF, LEANNE WAGNER #### [address] [address] Platelet mean volume (Bld) [Entitic vol] 7.3 fL Low 7.4-10.4 [facility] ([place] Comment on above: Performed By: #### C MP, CBC, GFR, ANEU, ADIFF, KRISTY, LEANNE #### [address] [address] RBC 4.92 10 6/mcL Normal 4.04-6.13 [facility] ([place] Comment on above: Performed By: #### C MP, CBC, GFR, ANEU, ADIFF, LEANNE WAGNER #### [address] [address] WBC 5.6 10 3/mcL Normal 4.6-10.8 [facility] ([place] Comment on above: Performed By: #### C MP, CBC, GFR, ANEU, ADIFF, LEANNE WAGNER #### [address] [address] CMPon 03-11-2023 Albumin Level 4.2 G/dL Normal 3.5-5.0 [facility] ([place] Comment on above: Performed By: #### C MP, CBC, GFR, ANEU, ADIFF, LIP, W #### [address] [address] Albumin/Globulin [Mass ratio] 1.6 {ratio} Normal 1.1-2.5 [facility] ([place] Comment on above: Performed By: #### C MP, CBC, GFR, ANEU, KRISTY KIMBLE MDW #### [address] [address] ALP [Catalytic activity/Vol] 91 U/L Normal 40-135 [facility] ([place] Comment on above: Performed By: #### C MP, CBC, GFR, ANEU, ADKRISTY MERRILL MDW #### [address] [address] ALT [Catalytic activity/Vol] 23 U/L Normal 16-63 [facility] ([place] Comment on above: Performed By: #### C MP, CBC, GFR, ANEU, KRISTY KIMBLE MDW #### [address] [address] AST [Catalytic activity/Vol] 17 U/L Normal 10-40 [facility] ([place] Comment on above: Performed By: #### C MP, CBC, GFR, ANEU, ADKRISTY MERRILL MDW #### [address] [address] Bili Total 0.6 mg/dL Normal 0.2-1.0 [facility] ([place] Comment on above: Result Comment: Use of this assay is not recommended for patients undergoing treatment with eltrombopag due to the potential for falsely elevated results. Performed By: #### C MP, CBC, GFR, ANEU, ADKRISTY MERRILL MDW #### [address] [address] BUN/Creatinine Ratio 13 ratio Normal 7-27 [facility] ([place]) Comment on above: Performed By: #### C MP, CBC, GFR, ANEULAMIN LIP, MDW #### [address] [address] Calcium [Mass/Vol] 9.3 mg/dL Normal 8.4-10.2 [facility] ([place]) Comment on above: Performed By: #### C MP, CBC, GFR, ANEU, KRISTY KIMBLE MDW #### [address] [address] Chloride [Moles/Vol] 104 mmol/L Normal 98-107 [facility] ([place]) Comment on above: Performed By: #### C MP, CBC, GFR, ANEU, ADKRISTY MERRILL MDW #### [address] [address] CO2 [Moles/Vol] 26 mmol/L Normal 22-29 [facility] ([place] Comment on above: Performed By: #### C MP, CBC, GFR, ANEU, ADKRISTY MERRILL MDW #### [address] [address] Creatinine [Mass/Vol] 0.83 mg/dL Normal 0.70-1.30 [facility] ([place]) Comment on above: Performed By: #### C MP, CBC, GFR, ANEU, ADKRISTY MERRILL MDW #### [place] [address] Electrolyte Balance 10.0 mEq/L Normal 4.0-15.0 [facility] ([place]) Comment on above: Performed By: #### C MP, CBC, GFR, ANEU, ADKRISTY MERRILL MDW #### [address] [address] Globulin 2.6 G/dL Normal [facility] ([place] Comment on above: Performed By: #### C MP, CBC, GFR, ANEU, ADIFFKRISTY MDW #### [address] [address] Glucose [Mass/Vol] 84 mg/dL Normal 70-105 [facility] ([place]) Comment on above: Performed By: #### C MP, CBC, GFR, ANEU, ADKRISTY MERRILL MDW #### [place] [address] Potassium [Moles/Vol] 4.1 mmol/L Normal 3.5-5.1 [facility] ([place]) Comment on above: Performed By: #### C MP, CBC, GFR, ANEU, ADIFF, KRISTY, MDW #### [place] [address] [place], [place] [address] Sodium [Moles/Vol] 140 mmol/L Normal 136-145 [facility] ([place]) Comment on above: Performed By: #### C MP, CBC, GFR, ANEU, ADIFF, KRISTY, MDW #### [place] [address] [place], [place] [address] Total Protein 6.8 G/dL Normal 6.4-8.2 [facility] ([place] Comment on above: Performed By: #### C MP, CBC, GFR, ANEU, ADIFF, KRISTY, W #### [place] [address] [place], [place] [address] Urea nitrogen [Mass/Vol] 11 mg/dL Normal 7-18 [facility] ([place] Comment on above: Performed By: #### C MP, CBC, GFR, ANEU, ADIFF, MD KRISTYW #### [address] [address] LABORATORYOrdered By: SYSTEM SYSTEM on 03-11-2023 Albumin [...] 03-11-2023 Lipase Level 25 U/L Normal 16-77 [facility] ([place]) Comment on above: Performed By: #### C MP, CBC, GFR, ANEU, ADIFF, LIP, W #### [address] [place], [place] [address] [id number] 12-22-2022 SARS-CoV-2 (COVID-19) RNA TRAY+probe Ql (Unsp spec) Negative Normal Negative [facility] ([place]) Comment on above: Performed By: #### C OVD19, FLURSV #### [place] [address] [place], [place] [address] SARS-CoV-2 (COVID-19) RNA TRAY+probe Ql (Unsp spec) Normal [facility] ([place]) Comment on above: Result Comment: Nega tive [...] Performed By: #### C OVD19, FLURSV #### [address] [address] DIMERon 12-22-2022 D-Dimer <200 Normal 0-230 [facility] ([place]) Comment on above: Result Comment: The result [...] (PE). Performed By: #### D BROOKS ####[address] [place], [place] [address] FLURSVon 12-22-2022 Flu A PCR (AO) Negative Normal Negative [facility] ([place]) Comment on above: Result Comment: Posi tive [...] REPEAT COLLECTION AND TESTING IS RECOMMENDED. The [employer] Flu A/B & RSV Assay is a real-time polymerase chain reaction (PCR) based qualitative in vitro diagnostic test for the direct detection and differentiation of influenza A virus, influenza B virus, and respiratory syncytial virus (RSV) nucleic acid in nasopharyngeal swab (SENIOR MANAGING DIRECTOR) specimens from patients with signs and symptoms of respiratory infection in conjunction with clinical and laboratory findings. The test is intended for use as an aid in the differential diagnosis of influenza A virus, influenza B virus, and RSV in humans and is not intended to detect influenza C. Performed By: #### C OVD19, FLURSV ####[address] [place], [place] [address] Flu B PCR (AO) Negative Normal Negative [facility] ([place]) Comment on above: Result Comment: Posi tive [...] (RSV) nucleic acid in nasopharyngeal swab (SENIOR MANAGING DIRECTOR) specimens from patients with signs and symptoms of respiratory infection in conjunction with clinical and laboratory findings. The test is intended for use as an aid in the differential diagnosis of influenza A virus, influenza B virus, and RSV in humans and is not intended to detect influenza C. Performed By: #### C OVD19, FLURSV ####[address] [place], [place] [address] RSV PCR (AO) Negative Normal Negative [facility] ([place]) Comment on above: Result Comment: Posi tive [...] (RSV) nucleic acid in nasopharyngeal swab (SENIOR MANAGING DIRECTOR) specimens from patients with signs and symptoms of respiratory infection in conjunction with clinical and laboratory findings. The test is intended for use as an aid in the differential diagnosis of influenza A virus, influenza B virus, and RSV in humans and is not intended to detect influenza C. Performed By: #### C OVD19, FLURSV ####[address] [place], [place] [address] LABORATORYOrdered By: Catherine Bernal on 12-22-2022 Fibrin [...] 12/22/2022 2:43:59 PM Ordering Provider: MANGO TYSON [facility] ([place]) CR Forearm 2 Views Righton 1 CR Forearm 2 Views Right Patient Name: JESSICA BARR Diagnostic Radiology ACCESSION EXAM DATE/TIME PROCEDURE ORDERING PROVIDER [id number] 07/01/2022 23:56 EDT CR Forearm 2 Views Right [id number] CAZARES CPT code 84967 Reason For Exam (CR Forearm 2 Views [...] Transcribed Date and Time: 07/02/2022 0:47 Normal [facility] XR RADIUS ULNA RIGHT (2 VIEW S)on 07-02-2022 Patient Name: JESSICA TIPTON Diagnostic Radiology ACCESSION EXAM DATE/TIME PROCEDURE ORDERING PROVIDER [id number] 07/01/2022 23:56 EDT CR Forearm 2 Views Right [id number] BASILIO MALLORY CPT code 47007 Reason For Exam (CR Forearm 2 Views [...] JASON Transcribed Date and Time: 07/02/2022 0:47 [facility] RAD Israel Crews MD - 07/02/2022 Patient Name: JESSICA BARR Diagnostic Radiology ACCESSION EXAM DATE/TIME PROCEDURE ORDERING PROVIDER [id number] 07/01/2022 23:56 EDT CR Forearm 2 Views Right [id number] -BASILIO ERVIN CPT code 21019 Reason For Exam (CR Forearm 2 Views [...] JASON Transcribed Date and Time: 07/02/2022 0:47 [facility] Work Phone: XR RADIUS ULNA RIGHT (2 VIEW S)Ordered By: Israel Crews on 07-02-2022 [facility] Work Phone: ED Provider Noteon 10-25-202 2 ED Provider Note [facility] EMERGENCY DEPT eMERGENCY dEPARTMENT eNCOUnter Pt Name: Jessica Barr Birthdate 2005 Date of evaluation: 07/01/2022 Provider: Omar Walls PA-C CHIEF COMPLAINT Chief Complaint Patient presents with Arm Injury PT FELL INTO [place] TODAY AND GOT CAST WET. PT HAD BROKEN R ARM W/ WOUND 2X WEEKS AGO. Patient seen independently with an Emergency Medicine attending available for supervision. HISTORY OF PRESENT ILLNESS (Location/Symptom, Timing/Onset,Context/Setti ng, Quality, Duration, Modifying Factors, Severity) Note limiting factors. HPI Jessica Barr is a 17 y.o. male who presents to the emergency department after falling in a [place] earlier today. Patient states that he did [...] use: Yes Drug use: Yes Types: Marijuana ([place]) SCREENINGS PHYSICAL EXAM (up to 7 for level 4, 8 ormore for level 5) ED Triage Vitals [07/01/222214] BP Temp Temp Source Heart Rate Resp [...] EXAM DATE/GAEL (more content not included)... Normal [facility] XR RADIUS ULNA RIGHT (2 VIEW S)on 07-01-2022 Radiology Study observation (narrative) [facility] Work Phone: CBC with Auto Differentialon 06-21-2022 Hematocrit (Bld) [Volume fraction] 39.0 % Low 40 - 52 % [facility] Hemoglobin (Bld) [Mass/Vol] 13.4 g/dL 13 - 18 g/dL [facility] Interpretation and review of laboratory results Abnormal [facility] MCH (RBC) [Entitic mass] 29.2 pg [...] 11.6 10*3/uL High 3.6 - 10.7 10*3/uL [facility] Test Performed by [facility], [address] [place] [id number] [facility] COVID-19, Flu A/B, and RSV C omboon 06-21-2022 Influenza A by PCR Not detected [facility] Influenza B by PCR Not detected [facility] RSV PCR Not Detected. Expected Result: Not Detected _ Method: Real-time, RT-PCR This assay was developed by [employer] and distributed under an Emergency Use Authorization (EUA) granted by the FDA for the qualitative detection of nucleic acids from SARS-CoV-2, Influenza A, Influenza B, and Respiratory Syncytial Virus. Provider and patient fact sheets can be found at https://www.fda.gov/media/ 275235/download and https://www.fda.gov/media/ 995172/download. [facility] SARS-CoV-2 (COVID-19) RNA TRAY+probe Ql (Unsp spec) Not detected [facility] Test Performed by [address] LAB [facility] CR Chest Portableon 06-21-20 22 CR Chest Portable Patient Name: JESSICA PALACIOS Diagnostic Radiology ACCESSION EXAM DATE/TIME PROCEDURE ORDERING PROVIDER [id number] 06/21/2022 18:58 EDT CR Chest Portable KAM ALFONSO CPT code 15738 Reason For Exam (CR Chest Portable) weakness, [...] Transcribed Date and Time: 06/21/2022 6:35 Normal [facility] Comp Metabolic Panelon 06-21 ALP [Catalytic activity/Vol] 71 U/L Normal 38-126 [facility] Comment on above: Performed By: #### KRISTA SERRANO MDIFF #### [facility] [address] [place], [place] ALT [Catalytic activity/Vol] 34 U/L Normal 0-49 [facility] Comment on above: Result Comment: The ALT test is performed by an updated assay method. Please note that the reference intervals have been changed and are now sex specific. Performed By: #### KRISTA SERRANO MDIFF #### [facility] [address] [place], [place] AST [Catalytic activity/Vol] 41 U/L Normal 15-46 [facility] Comment on above: Performed By: #### KRISTA SERRANO MDIFF #### [place] [address] [address] [place], [place] Calcium [Mass/Vol] 9.5 mg/dL Normal 8.4-10.4 [facility] Comment on above: Performed By: #### KRISTA SERRANO MDIFF #### [place] [address] [place] [place], [place] Glucose [Mass/Vol] 102 mg/dL High 70-100 [facility] Comment on above: Performed By: #### KRISTA SERRANO MDIFF #### [facility] [address] [place], [place] Protein [Mass/Vol] 7.4 g/dL Normal 6.3-8.2 [facility] Comment on above: Performed By: #### KRISTA SERRANO MDIFF #### [facility] [address] [place], [place] Urea nitrogen [Mass/Vol] 10 mg/dL Normal 7-17 [facility] Comment on above: Performed By: #### KRISTA SERRANO MDIFF #### [facility] [address] [place], [place] Anion gap [Moles/Vol] 8 mmol/L Normal 3-13 [facility] Comment on above: Performed By: #### RKISTA SERRANO MDIFF #### [address] Bilirubin [Mass/Vol] 0.6 mg/dL Normal 0.2-1.3 [facility] Comment on above: Performed By: #### H KRISTA ADRIAN MDIFF #### [address] CO2 [Moles/Vol] 25 mmol/L Normal 22-30 [facility] Comment on above: Performed By: #### H KRISTA ADRIAN MDIFF #### [address] Creatinine [Mass/Vol] 0.62 mg/dL Normal 0.52-1.25 [facility] Comment on above: Performed By: #### H KRISTA ADRIAN MDIFF #### [address] eGFR OTHER > 90.0 Normal >60 [facility] Comment on above: Result Comment: KDIG [...] By: #### H KRISTA ADRIAN MDIFF #### [address] GFR/1.73 sq M.predicted among blacks MDRD (S/P/Bld) [Vol rate/Area] mL/min/{1.73_m2} Normal >60 [facility] Comment on above: Performed By: #### H KRISTA ADRIAN MDIFF #### [facility] [address] [place] [address] Albumin [Mass/Vol] 4.2 g/dL Normal 3.5-5.0 [facility] Comment on above: Performed By: #### H KRISTA ADRIAN MDIFF #### [facility] [address] [place], [place] Chloride [Moles/Vol] 104 mmol/L Normal 98-107 [facility] Comment on above: Performed By: #### H KRISTA ADRIAN MDIFF #### [facility] [address] [place] [address] Potassium [Moles/Vol] 4.2 mmol/L Normal 3.5-5.1 [facility] Comment on above: Performed By: #### H KRISTA ADRIAN MDIFF #### [place] [address] [place], [place] Sodium [Moles/Vol] 136 mmol/L Normal 135-145 [facility] Comment on above: Performed By: #### H KRISTA ADRIAN MDIFF #### [place] [address] [place] [address] Comprehensive Metabolic Pane jayla 06-21-2022 Albumin [Mass/Vol] 4.2 g/dL 3.5 - 5 g/dL [facility] ALP (Bld) [Catalytic activity/Vol] 71 U/L 38 - 126 U/L [facility] ALT [Catalytic activity/Vol] 34 U/L 0 - 49 U/L [facility] Comment on above: The ALT test [...] P INF mL/min [facility] EGFR IF NonAfrican Congolese mL/min 60 - PINF mL/min [facility] Comment [...] - 17 mg/dL [facility] Test Performed by [address] [address] [facility] ED Provider Noteon ED Provider Note Emergency Department Encounter [facility] EMERGENCY DEPT Patient: [...] ACS or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 0.9-1.1 [facility] Comment on above: Result Comment: Izaiah [...] #### H EMDF, PT, ETOH4, BMP3 #### [address] PT Coag (PPP) [Time] 11.4 s Normal 9.0-12.0 [facility] Comment on above: Result Comment: . Performed By: #### H EMDF, PT, ETOH4, BMP3 #### [address] Protime-INRon 06-17-2022 INR Coag (Bld) [Relative time] 1.1 {INR} [facility] Comment on above: Recommended Anticoag ulant [...] Comment on above: . Test Performed by [id number] [place] [address] LAB [facility] TS GELon 06-17-2022 TS GEL ABO Group: B Rh, Gel: POS Antibody Screen Gel: NEG Normal [facility] Comment on above: Performed By: #### H EMDF, PT, ETOH4, BMP3 #### [address] [address] TYPE AND SCREENon 06-17-2022 ABO Grouping B [facility] Rh Type Positive [facility] Test Performed by [id number] [place] [address] [facility] XR CHEST 1 VIEWon 06-17-2022 XR [...] 06/17/2022 1:31:13 AM Ordering Provider: JUANA HUNT [facility] ([place]) XR FOREARM 2 VIEWS RIGHTon 1 XR [...] 06/17/2022 12:21:56 AM Ordering Provider: JUANA HUNT [facility] ([place]) XR HAND RIGHT (MIN 3 VIEWS)o n 06-17-2022 Patient Name: JESSICA TIPTON Diagnostic Radiology ACCESSION EXAM DATE/TIME PROCEDURE ORDERING PROVIDER [id number] 06/17/2022 03:53 EDT CR Hand Complete 3+ [id number] -VILLAFANA, Views Right HIEU CPT code 67189 Reason For Exam (CR Hand Complete 3+ [...] CHRISTOPHER Transcribed Date and Time: 06/17/2022 3:46 [facility] Yuriy Valdez MD - 06/17/2022 Patient Name: JESSICA BARR Diagnostic Radiology ACCESSION EXAM DATE/TIME PROCEDURE ORDERING PROVIDER [id number] 06/17/2022 03:53 EDT CR Hand Complete 3+ [id number] -LEDY, Views Right HIEU CPT code 85277 Reason For Exam (CR Hand Complete 3+ [...] Radiology ACCESSION EXAM DATE/TIME PROCEDURE ORDERING PROVIDER [id number] 06/17/2022 03:53 EDT CR Wrist Complete 3 [id number] -KAM RAMIREZ Views Right CPT code 51562 Reason For Exam (CR Wrist Complete 3 [...] CHRISTOPHER Transcribed Date and Time: 06/17/2022 3:46 [facility] Yuriy Valdez MD - 06/17/2022 Patient Name: JESSICA BARR Diagnostic Radiology ACCESSION EXAM DATE/TIME PROCEDURE ORDERING PROVIDER [id number] 06/17/2022 03:53 EDT CR Wrist Complete 3 [id number] -KAM RAMIREZ Views Right CPT code 14770 Reason For Exam (CR Wrist Complete 3 [...] [facility] Clinic Strep A (POCT) Negative Negative [facility] Vital Signs Date Time Vital Sign Value Performing Clinician Facility 05-11-2025 18:31-0400 Body temperature 98.4 [degF] Dr. Lupillo Alvarado MD Work Phone: [facility] 05-11-2025 18:31-0400 Diastolic blood pressure 81 mm[Hg] Dr. Lupillo Alvarado MD Work Phone: 9(612)[phone] [place] [address] 05-11-2025 18:31-0400 Heart rate 60 /min Dr. Lupillo Alvarado MD Work Phone: 8(012)318-992097 [place] [address] 05-11-2025 18:31-0400 Respiratory rate 16 /min Dr. Lupillo Alvarado MD Work Phone: 9(953)543-998897 [place] [address] 05-11-2025 18:31-0400 SaO2% (BldA) [Mass fraction] 97 % Dr. Lupillo Alvarado MD Work Phone: 7(869)275-747097 [place] [address] 05-11-2025 18:31-0400 Systolic blood pressure 127 mm[Hg] Dr. Lupillo Alvarado MD Work Phone: 8(374)379-617897 [place] [address] 05-11-2025 13:16-0400 Body height 172.[address] Lupillo Alvarado MD Work Phone: 5(001)283-619197 [place] [address] 05-11-2025 13:16-0400 Body mass index (BMI) [Ratio] 24.7 kg/m2 Dr. Lupillo Alvarado MD Work Phone: 7(347)794-444597 [place] [address] 05-11-2025 13:16-0400 Body weight 73.[address] Lupillo Alvarado MD Work Phone: 4(887)428-986997 [place] [address] 05-03-2025 09:04-0400 Body height 172.[address] Lupillo Alvarado MD Work Phone: 5(585)057-309097 [place] [address] 05-03-2025 09:04-0400 Body mass index (BMI) [Ratio] 24.3 kg/m2 Dr. Lupillo Alvarado MD Work Phone: 1(616)858-920197 [place] [address] 05-03-2025 09:04-0400 Body temperature 98.9 [degF] Dr. Lupillo Alvarado MD Work Phone: 8(399)551-941197 [place] [address] 05-03-2025 09:04-0400 Body weight 72.[address] Lupillo Alvarado MD Work Phone: 8(606)735-843997 [place] [address] 05-03-2025 09:04-0400 Diastolic blood pressure 68 mm[Hg] Dr. Lupillo Alvarado MD Work Phone: 3(142)338-584397 [place] [address] 05-03-2025 09:04-0400 Heart rate 58 /min Dr. Lpuillo Alvarado MD Work Phone: 8(944)938-063597 [place] [address] 05-03-2025 09:04-0400 Respiratory rate 18 /min Dr. Lupillo Alvarado MD Work Phone: 8(994)783-694197 [place] [address] 05-03-2025 09:04-0400 SaO2% (BldA) [Mass fraction] 98 % Dr. Lupillo Alvarado MD Work Phone: [phone])[phone] [place] [address] 05-03-2025 09:04-0400 Systolic blood pressure 117 mm[Hg] Dr. Lupillo Alvarado MD Work Phone: [phone] [place] [address] 04-11-2025 14:12-0400 Body height 172.[address] Lupillo Alvarado MD Work Phone: 4([phone])[phone] [place] [address] 04-11-2025 14:12-0400 Body mass index (BMI) [Ratio] 24.4 kg/m2 Dr. Lupillo Alvarado MD Work Phone: 5(852)[phone] [place] [address] 04-11-2025 14:12-0400 Body temperature 98.1 [degF] Dr. Lupillo Alvarado MD Work Phone: 6(387)764-231897 [place] [address] 04-11-2025 14:12-0400 Body weight 72.[address] Lupillo Alvarado MD Work Phone: 5(490)834-601997 [place] [address] 04-11-2025 14:12-0400 Diastolic blood pressure 63 mm[Hg] Dr. Lupillo Alvarado MD Work Phone: 6(193)154-885497 [place] [address] 04-11-2025 14:12-0400 Heart rate 56 /min Dr. Lupillo Alvarado MD Work Phone: 1(446)211-151397 [place] [address] 04-11-2025 14:12-0400 Respiratory rate 18 /min Dr. Lupillo Alvarado MD Work Phone: 1(505)392-910897 [place] [address] 04-11-2025 14:12-0400 SaO2% (BldA) [Mass fraction] 99 % Dr. Lupillo Alvarado MD Work Phone: 0(462)207-093597 [place] [address] 04-11-2025 14:12-0400 Systolic blood pressure 115 mm[Hg] Dr. Lupillo Alvarado MD Work Phone: 5(807)771-135097 [place] [address] 04-04-2025 14:20-0400 Body height 172.[address] Lupillo Alvarado MD Work Phone: 8(971)680-834797 [place] [address] 04-04-2025 14:20-0400 Body mass index (BMI) [Ratio] 24.3 kg/m2 Dr. Lupillo Alvarado MD Work Phone: 2(750)768-369597 [place] [address] 04-04-2025 14:20-0400 Body temperature 98.5 [degF] Dr. Lupillo Alvarado MD Work Phone: 9(939)980-308197 [place] [address] 04-04-2025 14:20-0400 Body weight 72.[address] Lupillo Alvarado MD Work Phone: 5(838)558-878497 [place] [address] 04-04-2025 14:20-0400 Diastolic blood pressure 75 mm[Hg] Dr. Lupillo Alvarado MD Work Phone: 1(985)654-475597 [place] [address] 04-04-2025 14:20-0400 Heart rate 77 /min Dr. Lupillo Alvarado MD Work Phone: 2(620)529-721097 [place] [address] 04-04-2025 14:20-0400 Respiratory rate 18 /min Dr. Lupillo Alvarado MD Work Phone: 6(229)571-267597 [place] [address] 04-04-2025 14:20-0400 SaO2% (BldA) [Mass fraction] 96 % Dr. Lupillo Alvarado MD Work Phone: 0(635)686-426297 [place] [address] 04-04-2025 14:20-0400 Systolic blood pressure 134 mm[Hg] Dr. Lupillo Alvarado MD Work Phone: 7(096)611-464797 [place] [address] 03-27-2025 14:04-0400 Body height 172.[address] Lupillo Alvarado MD Work Phone: 1(122)018-759897 [place] [address] 03-27-2025 14:04-0400 Body mass index (BMI) [Ratio] 24.5 kg/m2 Dr. Lupillo Alvarado MD Work Phone: 5(273)333-644397 [place] [address] 03-27-2025 14:04-0400 Body weight 73.[address] Lupillo Alvarado MD Work Phone: 3(021)747-523297 [place] [address] 03-27-2025 13:54-0400 Body temperature 98.7 [degF] Dr. Lupillo Alvarado MD Work Phone: 3(313)819-148997 [place] [address] 03-27-2025 13:54-0400 Diastolic blood pressure 72 mm[Hg] Dr. Lupillo Alvarado MD Work Phone: 7(582)056-862297 [place] [address] 03-27-2025 13:54-0400 Heart rate 62 /min Dr. Lupillo Alvarado MD Work Phone: 7(753)200-644997 [place] [address] 03-27-2025 13:54-0400 Respiratory rate 18 /min Dr. Lupillo Alvarado MD Work Phone: 2(889)117-919997 [place] [address] 03-27-2025 13:54-0400 SaO2% (BldA) [Mass fraction] 98 % Dr. Lupillo Alvarado MD Work Phone: 1(336)190-056697 [place] [address] 03-27-2025 13:54-0400 Systolic blood pressure 116 mm[Hg] Dr. Lupillo Alvarado MD Work Phone: 5(829)939-302397 [place] [address] 03-07-2025 09:00-0400 Body temperature 98 [degF] Dr. Lupillo Alvarado MD Work Phone: 2(865)537-609397 [place] [address] 03-07-2025 09:00-0400 Diastolic blood pressure 53 mm[Hg] Dr. Lupillo Alvarado MD Work Phone: 8(266)489-809155 [place] [address] 03-07-2025 09:00-0400 Heart rate 57 /min Dr. Lupillo Alvarado MD Work Phone: 1(704)848-415555 [place] [address] 03-07-2025 09:00-0400 Respiratory rate 16 /min Dr. Lupillo Alvarado MD Work Phone: 2(887)714-459197 [place] [address] 03-07-2025 09:00-0400 SaO2% (BldA) [Mass fraction] 100 % Dr. Lupillo Alvarado MD Work Phone: 5(477)750-559397 [place] [address] 03-07-2025 09:00-0400 Systolic blood pressure 122 mm[Hg] Dr. Lupillo Alvarado MD Work Phone: 7(387)537-715197 [place] [address] 03-06-2025 08:49-0400 Body height 172.[address] Lupillo Alvarado MD Work Phone: 2(153)596-054897 [place] [address] 03-06-2025 08:49-0400 Body mass index (BMI) [Ratio] 24.6 kg/m2 Dr. Lupillo Alvarado MD Work Phone: 7(785)666-661897 [place] [address] 03-06-2025 08:49-0400 Body weight 73.[address] Lupillo Alvarado MD Work Phone: 6(374)034-290997 [place] [address] 03-05-2025 17:27-0400 Body temperature 98.3 [degF] Dr. Lupillo Alvarado MD Work Phone: 3(227)583-594797 [place] [address] 03-05-2025 17:27-0400 Diastolic blood pressure 80 mm[Hg] Dr. Lupillo Alvarado MD Work Phone: 5(823)986-983397 [place] [address] 03-05-2025 17:27-0400 Heart rate 73 /min Dr. Lupillo Alvarado MD Work Phone: 2(966)920-174497 [place] [address] 03-05-2025 17:27-0400 Respiratory rate 19 /min Dr. Lupillo Alvarado MD Work Phone: 3(907)697-024297 [place] [address] 03-05-2025 17:27-0400 SaO2% (BldA) [Mass fraction] 99 % Dr. Lupillo Alvarado MD Work Phone: 5(039)273-903597 [place] [address] 03-05-2025 17:27-0400 Systolic blood pressure 110 mm[Hg] Dr. Lupillo Alvarado MD Work Phone: 0(322)147-359697 [place] [address] 03-05-2025 14:33-0400 Body height 175.[address] Lupillo Alvarado MD Work Phone: 2(248)873-447497 [place] [address] 03-05-2025 14:33-0400 Body mass index (BMI) [Ratio] 28.8 kg/m2 Dr. Lupillo Alvarado MD Work Phone: 9(286)764-966897 [place] [address] 03-05-2025 14:33-0400 Body weight 88.[address] Lupillo Alvarado MD Work Phone: 9(236)547-750497 [place] [address] 03-04-2025 15:48-0400 Body temperature 98.1 [degF] Dr. Lupillo Alvarado MD Work Phone: 6(069)602-267697 [place] [address] 03-04-2025 15:48-0400 Diastolic blood pressure 77 mm[Hg] Dr. Lupillo Alvarado MD Work Phone: 5(308)028-472897 [place] [address] 03-04-2025 15:48-0400 Heart rate 81 /min Dr. Lupillo Alvarado MD Work Phone: 8(516)031-266797 [place] [address] 03-04-2025 15:48-0400 Respiratory rate 16 /min Dr. Lupillo Alvarado MD Work Phone: 7(040)387-672497 [place] [address] 03-04-2025 15:48-0400 SaO2% (BldA) [Mass fraction] 99 % Dr. Lupillo Alvarado MD Work Phone: 1(830)548-955997 [place] [address] 03-04-2025 15:48-0400 Systolic blood pressure 120 mm[Hg] Dr. Lupillo Alvarado MD Work Phone: 7(527)545-420597 [place] [address] 03-04-2025 12:10-0400 Body height 175.[address] Lupillo Alvarado MD Work Phone: 4(756)556-247897 [place] [address] 03-04-2025 12:10-0400 Body mass index (BMI) [Ratio] 24.1 kg/m2 Dr. Lupillo Alvarado MD Work Phone: 2(822)720-117097 [place] [address] 03-04-2025 12:10-0400 Body weight 74.[address] Lupillo Alvarado MD Work Phone: 2(177)486-279897 [place] [address] 01-29-2025 05:50-0400 Body temperature 98 [degF] Dr. Lupillo Alvarado MD Work Phone: 5(695)858-989655 [place] [address] 01-29-2025 05:50-0400 Diastolic blood pressure 78 mm[Hg] Dr. Lupillo Alvarado MD Work Phone: [facility] 01-29-2025 05:50-0400 Heart rate 81 /min Dr. Lupillo Alvarado MD Work Phone: 5(426)825-522655 [place] [address] 01-29-2025 05:50-0400 Respiratory rate 18 /min Dr. Lupillo Alvarado MD Work Phone: 6(890)381-009497 [place] [address] 01-29-2025 05:50-0400 SaO2% (BldA) [Mass fraction] 98 % Dr. Luplilo Alvarado MD Work Phone: 6(056)903-179255 [place] [address] 01-29-2025 05:50-0400 Systolic blood pressure 128 mm[Hg] Dr. Lupillo Alvarado MD Work Phone: 7(287)012-881943 [address] 01-29-2025 03:30-0400 Body height 175.[address] Lupillo Alvarado MD Work Phone: 7(363)859-095343 [address] 01-29-2025 03:30-0400 Body mass index (BMI) [Ratio] 27.3 kg/m2 Dr. Lupillo Alvarado MD Work Phone: 5(290)668-458355 [place] [address] 01-29-2025 03:30-0400 Body weight 83.[address] Lupillo Alvarado MD Work Phone: [facility] 05-13-2024 12:19-0400 Body temperature 99 [degF] Ivonne Gallego-Dakota [employer] Work Phone: [facility] 05-13-2024 12:19-0400 Body weight 79 kg Ivonne Prajose elias-Dakota [employer] Work Phone: [facility] 05-13-2024 12:19-0400 Diastolic blood pressure 76 mm[Hg] Ivonne Pracolinler-Dakota [employer]INTER [employer] Work Phone: [facility] 05-13-2024 12:19-0400 Heart rate 111 /min Ivonne Praisler-Wood [employer] Work Phone: [facility] 05-13-2024 12:19-0400 Respiratory rate 20 /min Ivonne Praisler-Wood [employer] Work Phone: [facility] 05-13-2024 12:19-0400 SaO2% (BldA) [Mass fraction] 98 % Ivonne Praisler-Wood [employer] Work Phone: [facility] 05-13-2024 12:19-0400 Systolic blood pressure 115 mm[Hg] Ivonne Praisler-Wood [employer] Work Phone: [facility] 04-26-2024 13:59-0400 Body temperature 98.49 [degF] Lul Pendlebury [employer]INTER [employer]ATOR [employer] Work Phone: [facility] 04-26-2024 13:59-0400 Body weight 78 kg Lul Pendlebury [employer] Work Phone: [facility] 04-26-2024 13:59-0400 Diastolic blood pressure 89 mm[Hg] Lul Pendlebury [employer]INTER [employer]ATOR [employer] Work Phone: [facility] Comment on above: checked BP x 2 04-26-2024 13:59-0400 Heart rate 85 /min Lul Pendlebury [employer] Work Phone: [facility] 04-26-2024 13:59-0400 Respiratory rate 20 /min Lul Pendlebury [employer]ATOR [employer] Work Phone: [facility] 04-26-2024 13:59-0400 SaO2% (BldA) [Mass fraction] 97 % Lul Pendlebury [employer]ATOR [employer] Work Phone: [facility] 04-26-2024 13:59-0400 Systolic blood pressure 129 mm[Hg] Lul Pendlebury [employer]INTER [employer]ATOR [employer] Work Phone: [facility] Comment on above: checked BP x 2 03-18-2024 12:57-0400 Body temperature 97.11 [degF] Laverne Juan Manuel [employer] Work Phone: [facility] 03-18-2024 12:57-0400 Body weight 79 kg Laverne Zambrano [employer] Work Phone: [facility] 03-18-2024 12:57-0400 Diastolic blood pressure 68 mm[Hg] Laverne Juan Manuel [employer]INTER [employer]ATOR [employer] Work Phone: [facility] 03-18-2024 12:57-0400 Heart rate 78 /min Laverne Juan Manuel [employer] Work Phone: [facility] 03-18-2024 12:57-0400 Respiratory rate 16 /min Laverne Zambrano [employer] Work Phone: [facility] 03-18-2024 12:57-0400 SaO2% (BldA) [Mass fraction] 96 % Laverne Zambrano [employer]INTER [employer]ATOR [employer] Work Phone: [facility] 03-18-2024 12:57-0400 Systolic blood pressure 128 mm[Hg] Laverne Zambrano [employer]INTER [employer]ATOR [employer] Work Phone: [facility] 03-03-2024 14:21-0400 Body temperature 98.6 [degF] Prakash Zhao MD Work Phone: [facility] 03-03-2024 14:21-0400 Body weight 78.47 kg Prakash Zhao MD Work Phone: [facility] 03-03-2024 14:21-0400 Diastolic blood pressure 74 mm[Hg] Prakash Zhao MD Work Phone: [facility] 03-03-2024 14:21-0400 Heart rate 84 /min Prakash Zhao MD Work Phone: [facility] 03-03-2024 14:21-0400 Respiratory rate 18 /min Prakash Zhao MD Work Phone: [facility] 03-03-2024 14:21-0400 Systolic blood pressure 122 mm[Hg] Prakash Zhao MD Work Phone: [facility] 02-29-2024 11:33-0400 Body temperature 97.5 [degF] Miriam Athy PA-C Work Phone: [facility] 02-29-2024 11:33-0400 Body weight 79.3 kg Miriam Athy PA-C Work Phone: [facility] 02-29-2024 11:33-0400 Diastolic blood pressure 70 mm[Hg] Miriam Athy PA-C Work Phone: [facility] 02-29-2024 11:33-0400 Heart rate 88 /min Miriam Athy PA-C Work Phone: [facility] 02-29-2024 11:33-0400 Respiratory rate 16 /min Miriam Athy PA-C Work Phone: [facility] 02-29-2024 11:33-0400 SaO2% (BldA) [Mass fraction] 97 % Miriam Athy PA-C Work Phone: [facility] 02-29-2024 11:33-0400 Systolic blood pressure 122 mm[Hg] Miriam Athy PA-C Work Phone: [facility] 01-29-2024 08:30-0400 Body temperature 98.01 [degF] Ivonne Praisler-Wood [employer]INTER [employer]ATOR [employer] Work Phone: [facility] 01-29-2024 08:30-0400 Body weight 77.8 kg Ivonne Praisler-Wood [employer]INTER [employer]ATOR [employer] Work Phone: [facility] 01-29-2024 08:30-0400 Diastolic blood pressure 64 mm[Hg] Ivonne Praisler-Wood [employer]INTER [employer]ATOR [employer] Work Phone: [facility] 01-29-2024 08:30-0400 Heart rate 75 /min Ivonne Praisler-Wood [employer]INTER AND [employer]ATOR [employer] Work Phone: [facility] 01-29-2024 08:30-0400 Respiratory rate 18 /min Ivonne Praisler-Wood [employer]INTER [employer]ATOR [employer] Work Phone: [facility] 01-29-2024 08:30-0400 SaO2% (BldA) [Mass fraction] 97 % Ivonne Cooper [employer]INTER [employer]ATOR [employer] Work Phone: [facility] 01-29-2024 08:30-0400 Systolic blood pressure 149 mm[Hg] Ivonne Gallego-Dakota [employer]INTER [employer]ATOR [employer] Work Phone: [facility] 03-11-2023 17:33-0400 Diastolic Blood Pressure Non-Invasive [address] MO ROUSSEAU MD [facility] 03-11-2023 17:33-0400 Heart rate 82 /min DR MO ROUSSEAU MD [facility] 03-11-2023 17:33-0400 Respiratory rate 16 /min DR MO ROUSSEAU MD [facility] 03-11-2023 17:33-0400 Systolic Blood Pressure Non-Invasive [address] MO ROUSSEAU MD [facility] 03-11-2023 14:27-0400 Body temperature 98.6 [degF] DR MO ROUSSEAU MD [facility] 03-11-2023 14:27-0400 Diastolic Blood Pressure Non-Invasive [address] MO ROUSSEAU MD [facility] 03-11-2023 14:27-0400 Heart rate 80 /min DR MO ROUSSEAU MD [facility] 03-11-2023 14:27-0400 Respiratory rate 16 /min DR MO ROUSSEAU MD [facility] 03-11-2023 14:27-0400 Systolic Blood Pressure Non-Invasive [address] MO ROUSSEAU MD [facility] 12-22-2022 14:46-0400 Diastolic Blood Pressure Non-Invasive 85 1 MANGO REICHFIELD DO [facility] 12-22-2022 14:46-0400 Heart rate 87 /min MANGO REICHFIELD DO [facility] 12-22-2022 14:46-0400 Respiratory rate 18 /min MANGO REICHFIELD DO [facility] 12-22-2022 14:46-0400 Systolic Blood Pressure Non-Invasive 132 1 MANGO REICHFIELD DO [facility] 12-22-2022 13:34-0400 Diastolic Blood Pressure Non-Invasive 80 1 MANGO REICHFIELD DO [facility] 12-22-2022 13:34-0400 Heart rate 63 /min MANGO REICHFIELD DO [facility] 12-22-2022 13:34-0400 Respiratory rate 20 /min MANGO REICHFIELD DO [facility] 12-22-2022 13:34-0400 Systolic Blood Pressure Non-Invasive 136 1 MANGO REICHFIELD DO [facility] 12-22-2022 13:10-0400 Body height 175 cm MANGO REICHFIELD DO [facility] 12-22-2022 13:10-0400 Body temperature 98.06 [degF] MANGO REICHFIELD DO [facility] 12-22-2022 13:10-0400 Body weight 68 kg MANGO REICHFIELD DO [facility] 12-22-2022 13:10-0400 Diastolic Blood Pressure Non-Invasive 82 1 MANGO REICHFIELD DO [facility] 12-22-2022 13:10-0400 Heart rate 66 /min [employer] DO [facility] 12-22-2022 13:10-0400 Height ZScore -0.25 [employer] DO [facility] Comment on above: Result Comment: ^~:!ZScore Source -[facility] 12-22-2022 13:10-0400 Percent Height for Age 40.10 1 MANGO [employer]HS[employer] DO [facility] Comment on above: Result Comment: ^~:!Percentile Source -[facility] 12-22-2022 13:10-0400 Respiratory rate 18 /min [employer] DO [facility] 12-22-2022 13:10-0400 Systolic Blood Pressure Non-Invasive 127 1 MANGO [employer] DO [facility] 07-01-2022 22:15-0400 Body height 175.3 cm [facility] 07-01-2022 22:15-0400 Body mass index (BMI) [Ratio] 22.15 kg/m2 [facility] 07-01-2022 22:15-0400 Body temperature 99.1 [degF] [facility] 07-01-2022 22:15-0400 Body weight 68.04 kg [facility] 07-01-2022 22:15-0400 Diastolic blood pressure 75 mm[Hg] [facility] 07-01-2022 22:15-0400 Heart rate 91 /min [facility] 07-01-2022 22:15-0400 Respiratory rate 16 /min [facility] 07-01-2022 22:15-0400 SaO2% (BldA) [Mass fraction] 97 % [facility] 07-01-2022 22:15-0400 Systolic blood pressure 126 mm[Hg] [facility] 06-21-2022 21:07-0400 Diastolic blood pressure 80 mm[Hg] LYNN Guerra MD Work Phone: [facility] 06-21-2022 21:07-0400 Heart rate 84 /min LYNN Guerra MD Work Phone: [facility] 06-21-2022 21:07-0400 Respiratory rate 18 /min LYNN Guerra MD Work Phone: [facility] 06-21-2022 21:07-0400 SaO2% (BldA) [Mass fraction] 99 % LYNN Guerra MD Work Phone: [facility] 06-21-2022 21:07-0400 Systolic blood pressure 132 mm[Hg] LYNN Guerra MD Work Phone: [facility] 06-21-2022 17:49-0400 Body height 172.7 cm LYNN Guerra MD Work Phone: [facility] 06-21-2022 17:49-0400 Body mass index (BMI) [Ratio] 22.05 kg/m2 LYNN Guerra MD Work Phone: [facility] 06-21-2022 17:49-0400 Body weight 65.77 kg LYNN Guerra MD Work Phone: [facility] 06-21-2022 17:46-0400 Body temperature 97.11 [degF] LYNN Guerra MD Work Phone: [facility] 06-18-2022 14:24-0400 Respiratory rate 16 /min Trevor Wheeler MD Work Phone: [facility] 06-18-2022 10:27-0400 Body temperature 98.01 [degF] Trevor Wheeler MD Work Phone: [facility] 06-18-2022 10:27-0400 Diastolic blood pressure 73 mm[Hg] Trevor Weheler MD Work Phone: [facility] 06-18-2022 10:27-0400 Heart rate 70 /min Trevor Wheeler MD Work Phone: [facility] 06-18-2022 10:27-0400 SaO2% (BldA) [Mass fraction] 99 % Trevor Wheeler MD Work Phone: [facility] 06-18-2022 10:27-0400 Systolic blood pressure 130 mm[Hg] Trevor Wheeler MD Work Phone: [facility] 06-17-2022 02:23-0400 Body height 172.7 cm Trevor Wheeler MD Work Phone: [facility] 06-17-2022 02:23-0400 Body mass index (BMI) [Ratio] 22.81 kg/m2 Trevor Wheeler MD Work Phone: [facility] 06-17-2022 02:23-0400 Body weight 68.04 kg Trevor Wheeler MD Work Phone: [facility] 06-17-2022 00:20-0400 Diastolic blood pressure 74 mm[Hg] DR JUANA HUNT MD [facility] 06-17-2022 00:20-0400 Heart rate 64 /min DR JUANA HUNT MD [facility] 06-17-2022 00:20-0400 Reason For Taking VItal Signs DR JUANA HUNT MD [facility] 06-17-2022 00:20-0400 Respiratory rate 16 /min DR JUANA HUNT MD [facility] 06-17-2022 00:20-0400 Systolic blood pressure 128 mm[Hg] DR JUANA HUNT MD [facility] 06-16-2022 23:50-0400 Body temperature 98.06 [degF] DR JUANA HUNT MD [facility] 06-16-2022 23:50-0400 Diastolic blood pressure 60 mm[Hg] DR JUANA HUNT MD [facility] 06-16-2022 23:50-0400 Heart rate 60 /min DR JUANA HUNT MD [facility] 06-16-2022 23:50-0400 Respiratory rate 16 /min DR JUANA HUNT MD [facility] 06-16-2022 23:50-0400 Systolic blood pressure 131 mm[Hg] DR JUANA HUNT MD [facility] 04-17-2022 14:37-0400 Body height 175 cm PAMELA DAIGLE MD [facility] 04-17-2022 14:37-0400 Body temperature 98.42 [degF] PAMELA DAIGLE MD [facility] 04-17-2022 14:37-0400 Body weight 68.2 kg PAMELA DAIGLE MD [facility] 04-17-2022 14:37-0400 Diastolic blood pressure 89 mm[Hg] PAMELA DAIGLE MD [facility] 04-17-2022 14:37-0400 Heart rate 62 /min PAMELA DAIGLE MD [facility] 04-17-2022 14:37-0400 Height ZScore -0.23 PAMELA DAIGLE MD [facility] Comment on above: Result Comment: ^~:!ZScore Source -[facility] 04-17-2022 14:37-0400 Percent Height for Age 41.04 1 PAMELA DAIGLE MD [facility] Comment on above: Result Comment: ^~:!Percentile Source -[facility] 04-17-2022 14:37-0400 Respiratory rate 16 /min PAMELA DAIGLE MD [facility] 04-17-2022 14:37-0400 Systolic blood pressure 140 mm[Hg] PAMELA DAIGLE MD [facility] 01-31-2022 15:56-0400 Body weight 68.95 kg Prakash Zhao MD Work Phone: [facility] 01-31-2022 15:56-0400 Diastolic blood pressure 52 mm[Hg] Prakash Zhao MD Work Phone: [facility] 01-31-2022 15:56-0400 Heart rate 55 /min Prakash Zhao MD Work Phone: [facility] 01-31-2022 15:56-0400 Respiratory rate 16 /min Prakash Zhao MD Work Phone: [facility] 01-31-2022 15:56-0400 SaO2% (BldA) [Mass fraction] 98 % Prakash Zhao MD Work Phone: [facility] 01-31-2022 15:56-0400 Systolic blood pressure 110 mm[Hg] Prakash Zhao MD Work Phone: [facility] 01-30-2022 17:01-0400 Body temperature 98.01 [degF] Ivonne Praisler-Wood [employer]ATOR APPRENTICE.[employer] Work Phone: [facility] 01-30-2022 17:01-0400 Body weight 69.22 kg Ivonne Praisler-Wood PAINTER AND DECORATOR APPRENTICE.[employer] Work Phone: [facility] 01-30-2022 17:01-0400 Diastolic blood pressure 62 mm[Hg] Ivonne Praisler-Wood PAINTER AND DECORATOR APPRENTICE.[employer] Work Phone: [facility] 01-30-2022 17:01-0400 Heart rate 82 /min Ivonne Praisler-Wood PAINTER AND DECORATOR APPRENTICE.[employer] Work Phone: [facility] 01-30-2022 17:01-0400 Respiratory rate 18 /min Ivonne Praisler-Wood PAINTER AND DECORATOR APPRENTICE.[employer] Work Phone: [facility] 01-30-2022 17:01-0400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 (groups A, C, Y and W-135) diphtheria toxoid conjugate vaccine (MCV4O); Translations: [Menveo] DARREN CRONIN PAINTER AND DECORATOR APPRENTICEMaicoin [facility] Comment on above: Result Comment: [place] number listed in cerner is not correct. The [place] [facility] [place] [phone] 05-27-2023 meningococcal B vacc ine, recombinant, OMV, adjuvanted; Translations: [Bexsero] DARREN CRONIN PAINTER AND DECORATOR APPRENTICEMaicoin [facility] 06-17-2022 tetanus and diphther ia toxoids, adsorbed, preservative free, for adult use (5 Lf of tetanus toxoid and 2 Lf of diphtheria toxoid) Trevor Wheeler MD Work Phone: [facility] Work Phone: Comment on above: Result Comment: 2022: VIS DATE: 04/12/2021 12-14-2014 meningococcal polysaccharide (groups A, C, Y and W-135) diphtheria toxoid conjugate vaccine (MCV4P) DARREN CRONIN PAINTER AND DECORATOR APPRENTICE-SUPERINTENDENT [employer] [facility] 12-14-2014 tetanus toxoid, redu nura diphtheria toxoid, and acellular pertussis vaccine, adsorbed DARREN LYONSEY PAINTER AND DECORATOR APPRENTICE-SUPERINTENDENT [employer] [facility] 07-15-2013 influenza virus vacc ine, unspecified formulation Ivonne Cooper PAINTER AND DECORATOR APPRENTICE.SUPERINTENDENT [employer] Work Phone: [facility] 04-30-2004 varicella virus vaccine MAC JOVANNY CRONIN PAINTER AND DECORATOR APPRENTICE-SUPERINTENDENT [employer] [facility] 2003 DTaP-hepatitis B and poliovirus vaccine DARREN MEHRDAD PAINTER AND DECORATOR APPRENTICE-SUPERINTENDENT [employer] [facility] 2003 DTaP-hepatitis B and poliovirus vaccine DARREN LYONSEY PAINTER AND DECORATOR APPRENTICE-SUPERINTENDENT [employer] [facility] 2003 DTaP-hepatitis B and poliovirus vaccine DARREN LYONSEY PAINTER AND DECORATOR APPRENTICE-SUPERINTENDENT [employer] [facility] Payers Date Payer Category Payer Medicaid [id number] 2023 Self-pay 2021 Unknown [id number] 2003 Medicaid [place] [employer] [place] [id number] 2003-Present [phone] [place] [address] Medicaid [id number] 2003 Unknown [id number] 2.16.840.1.407891.3.579.2.668 2003 Unknown [id number] 2.16.840.1.199806.3.579.2.668 2003 Unknown [id number] 2.16.840.1.187072.3.579.2.668 2003 Unknown [id number] 2.16.840.1.509846.3.579.2.627 2003 Unknown [id number] 2.16840.1.894807.3.579.2.627 2003 Unknown [id number] 2.16840.1.584461.3.579.2.627 2003 Unknown [id number] 2.840.1.906075.3.579.2.627 2003 Unknown [id number] 2.840.1.407585.3.579.2.627 1974 Unknown [id number] 2.840.1.400112.3.579.2.627 1974 Unknown [id number] 2.840.1.227658.3.579.2.627 Unknown Unknown [id number] 2.840.1.683172.3.579.2.462 Unknown [id number] 2.16840.1.955799.3.579.2.462 Unknown [id number] 2.16840.1.305805.3.579.2.462 Unknown [id number] 2.16840.1.479439.3.579.2.462 Unknown [id number] 2.16840.1.647641.3.579.2.462 Unknown [id number] 2.16840.1.688009.3.579.2.462 Unknown [id number] 2.16.840.1.557458.3.579.2.462 Unknown [id number] 2.16.840.1.376405.3.579.2.462 Unknown [id number] 2.16.840.1.178082.3.579.2.462 Unknown [id number] 2.16.840.1.515150.3.579.2.462 Unknown [id number] 2.16.840.1.750933.3.579.2.462 Unknown [id number] 2.16.840.1.228658.3.579.2.462 Unknown [id number] 2.16.840.1.140150.3.579.2.462 Unknown [id number] 2.16.840.1.841608.3.579.2.462 Unknown [id number] 2.16.840.1.822482.3.579.2.462 Unknown [id number] 2.16.840.1.709976.3.579.2.462 Unknown [id number] 2.16.840.1.735437.3.579.2.462 Unknown [id number] 2.16.840.1.736302.3.579.2.462 Unknown [id number] 2.16.840.1.636304.3.579.2.462 Unknown [id number] 2.16.840.1.511044.3.579.2.462 Unknown [id number] 2.16.840.1.125794.3.579.2.462 Social History Date Type Detail Facility Start: 12-17-2016 End: 01-29-2024 Tobacco smoking status NHIS Never smoked tobacco [facility] Work Phone: Start: 12-17-2016 End: 04-26-2024 Tobacco use and exposure Smokeless tobacco non-user [facility] Work Phone: Start: 01-30-2022 End: 01-29-2024 Alcohol intake Current non-drinker of alcohol (finding) [facility] Start: 2003 Sex Assigned At Not on file [facility] Start: 01-20-2022 End: 07-02-2022 Exposure to SARS-CoV-2 (event) Not sure [facility] Start: 01-31-2022 End: 06-21-2022 History SDOH Alcohol Frequency 1 [facility] Sex Assigned At [facility] Start: 06-17-2022 End: 02-07-2025 Alcohol intake Current drinker of alcohol (finding) [facility] Work Phone: Start: 06-17-2022 History SDOH Alcohol Frequency 2 [facility] Work Phone: Start: 12-22-2022 Tobacco smoking status Light tobacco smoker (finding) [facility] Start: 01-31-2022 End: 02-08-2025 History of Social function [facility] Work Phone: Start: 01-31-2022 End: 02-08-2025 Alcohol Use Disorder Identification Test - Consumption [AUDIT-C] [facility] Work Phone: How often to you hav e a drink containing alcohol? Never [facility] Work Phone: Average Number of Drinks Not on file [facility] Start: 03-03-2024 End: 05-11-2025 Tobacco smoking status NHIS Smokes tobacco daily [facility] Start: 2016 History of tobacco use Cigarette Smoker [facility] How often to you hav e a drink containing alcohol? 2-4 times a month [facility] How many standard dr inks containing alcohol do you have on a typical day? 10 or more [facility] How often do you hav e 6 or more drinks on 1 occasion? Monthly [facility] Start: 03-03-2024 Alcohol Comment 12 pack every other weekend [facility] Start: 08-12-2022 Tobacco Comment 3-4 cigarettes a day [facility] Start: 08-12-2022 Alcohol Comment 1 a week [facility] Start: 11-19-2015 End: 07-02-2022 Sex Male (finding) [facility] Start: 2003 Sex Assigned At Male [facility] Goals Date Patient Goal Desired Activity /State Functional Status Date Assessment Result Facility 07-01-2025 Functional status Ambulates;Up ad trev [facility] Work Phone: 03-11-2023 Functional Status Up ad trev [facility] 03-11-2023 Functional Status Standard Safet y ID band on, Call device within reach, Bed in low position, Wheels locked, Bedside Cart Locked, Safety level maintained [facility] 12-22-2022 Functional Status Up ad trev [facility] 12-22-2022 Functional Status Standard Safet y ID band on, Call device within reach, Bed in low position, Wheels locked [facility] 06-16-2022 Functional Status Standard Safet y ID band on, Call device within reach, Bed in low position, Wheels locked, Upper/Half-Length side-rails up, Bedside Cart Locked, Visitor at bedside, Safety level maintained [facility] 04-17-2022 Functional Status Up ad trev [facility] Mental Status Date Assessment Result Facility 03-07-2025 Cognitive function Light Pain [facility] Work Phone: 03-11-2023 Mental Status Orientation Oriented x 4 [facility] 03-11-2023 Mental Status [facility] 12-22-2022 Mental Status Orientation Oriented x 4 [facility] 12-22-2022 Mental Status [facility] 06-16-2022 Mental Status Orientation Oriented x 4 [facility] 04-17-2022 Mental Status Oriented x 4 [facility] Clinical Notes 04-29-2021 to 05-11-2025 Note Date & Type Note Facility 05-11-2025 Discharge summary Note Date/Time May 11, 2025 4:58pm [facility] Medical Records Department [address] [place] [address] Emergency Department Summary 05/11/25 MR#: [id number] Acct: [id number] Name: JESSICA BARR Rep #:[id number] : 2005 20 From: Kobe Pisano DO PCP: JUAN DANIEL BrownC Status:RE G ER Location: ED HPI History of Present Illness Chief Complaint: Suicidal Narrative Narrative: Patient is a 20-year-old male with past medical history anxiety, depression who presented to the emergency department with a chief complaint of suicidal ideation. Patient today had thoughts of killing himself with a gun and he states that he left work wrote a suicide note prior to this and that took one ofhis guns with him to a fishing hole. He states that after thinking about this he decided to come here to be evaluated further. He states that he does not have much support and has lost several family members recently as well. [facility] Medical History Pain in right testicle Smoker Depression Anxiety Home Medications ?Medication ?Instructions ?Recorded ?Last Taken ?Type NK 04/04/25 Unknown History Allergy/AdvReac Type Severity Reaction Status Date / Time No Known Allergies Allergy Verified 05/11/25 13:16 Family History Grandmother Breast cancer Aunt Breast cancer Uncle Cancer Surgical History Status post open reduction and internal fixation (ORIF) of fracture Social History Smoking Status: Current every day smoker tobacco type: cigarettes and e-cigarettes alcohol intake: current alcohol intake frequency: a few times a month substance use type: marijuana ROS ROS ED ROS Narrative Constitutional: Denies fevers, chills, headaches, lightness, dizziness Eyes: Denies double vision blurry vision changes vision Cardiovascular: Denies chest pain Respiratory: Denies shortness of breath Abdomen: Denies abdominal pain nausea vomit diarrhea : Denies any urinary symptoms Neurological: Denies numbness, weakness, tingling Musculoskeletal: Denies back pain Psychiatric: Complains of suicidal ideation as noted above denies homicidal ideation Skin: Denies any rashes or lesions EXAM Physical Exam Narrative Exam Narrative: General: Patient was lying in bed rest comfortably did not appear to be in acutedistress Head: Atraumatic, normocephalic Eyes: PERRL bilaterally, EOMI bilaterally, no conjunctival injection noted Neck: Soft, supple, trachea midline Cardiovascular: Regular rate and rhythm no murmurs gallops rubs noted Respiratory: Clear to auscultation bilaterally no rales rhonchi or wheezes noted Abdomen: Soft, nondistended, no tenderness palpation Extremities: +5/5 strength noted in the bilateral lower extremities Neurological: Patient following commands knew that he was at [facility] year is 2024 Skin: Warm, dry, tact no rashes or lesions noted Const Vital Signs: 05/11/25 13:16 05/11/25 15:28 05/11/25 16:49 Temperature 98.4 F Temperature Source Oral Pulse Rate 84 87 60 Respiratory Rate 16 16 Blood Pressure 141/90 H 139/91 H 127/81 H Blood Pressure Mean 107 107 96 Pulse Ox 100 98 97 Oxygen Delivery Method Room Air Room Air Room Air MDM MDM MDM Narrative Medical decision making narrative: Patient is a 20-year-old male who presented to the emergency department the chief complaint of suicidal ideation. On the differential diagnose includes Melamin to anxiety, depression, suicidal ideation. Patient CBC reviewed showed no evidence leukocytosis white blood count normal at6.4, hemoglobin 13.4, platelet count of 340. Patient sodium was 138, potassium normal 4.2, creatinine was noted to be normal at 0.84. Patient drug screen negative alcohol level less than 10. Patient medically cleared and will be placed into psychiatric facility for stabilization. Patient still pending placement will be signed out to oncoming provider for ultimate disposition see addendum further details. Lab Data Labs: Laboratory Results - last 24 hr 05/11/25 13:29 WBC 6.4 RBC 4.74 Hgb 13.4 Hct 38.6 L MCV 81.4 MCH 28.3 MCHC 34.7 RDW Std Deviation 37.6 RDW Coeff of Emigdio 12.6 Plt Count 340 MPV 9.5 Immature Gran % (Auto) 0.300 Neut % (Auto) 52.1 Lymph % (Auto) 30.8 [place] % (Auto) 11.3 H Eos % (Auto) 4.1 Baso % (Auto) 1.4 H Absolute Neuts (auto) 3.3 Absolute Lymphs (auto) 1.96 Nucleated RBC % 0 Sodium 138 Potassium 4.2 Chloride 101 Carbon Dioxide 25.9 Anion Gap 11 BUN 15 Creatinine 0.84 Estim Creat Clear Calc 133.45 Est GFR (MDRD) Non-Af 126 BUN/Creatinine Ratio 17.7 Glucose 79 Calcium 9.4 Urine Opiates Screen NEGATIVE U Buprenorphine Qual NEGATIVE Ur Oxycodone Screen NEGATIVE Urine Methadone Screen NEGATIVE Urine Fentanyl Screen NEGATIVE Ur Barbiturates Screen NEGATIVE Ur Phencyclidine Scrn NEGATIVE Ur Amphetamines Screen NEGATIVE U Benzodiazepines Scrn NEGATIVE Urine Cocaine Screen NEGATIVE U Cannabinoids Screen NEGATIVE Ethyl Alcohol < 10.1 Discharge Plan Triage Chief Complaint: Suicidal ED Provider: Kobe Pisano Dx/Rx/DC Orders Clinical Impression: Suicidal ideation, Anxiety and depression Prescriptions: No Action NK Primary Care Provider: Mitali Mosher NP Referrals: Mitali Mosher NP, CLAIM AGENT-C [Primary Care Provider] - Print Language: [place] What to do if you have Problems For any increased pain, shortness of breath, bleeding, nausea or vomiting, chestpain, or any unexpected problems, contact your Primary Care Provider. Call [facility] ([phone]) or report to the closest Emergency Room. Call 911 if necessary. 05/11/25 1658 <Electronically signed by Kobe Pisano DO> Cosigner Signature (if applicable): CC: ALEJANDRO Mosher ~ Signed [facility] Work Phone: [phone]) 676-224909-04-2025 Discharge summary [facility] Medical Records Department [address] [place] [address] Emergency Department Summary 05/11/25 MR#: [id number] Acct: [id number] Name: JESSICA BARR Rep #:[id number] : 2005 20 From: Kobe Pisano DO PCP: ALEJANDRO Brown Status:RE G ER Location: ED HPI History of Present Illness Chief Complaint: Suicidal Narrative Narrative: Patient is a 20-year-old male with past medical history anxiety, depression who presented to the emergency department with a chief complaint of suicidal ideation. Patient today had thoughts of killing himself with a gun and he states that he left work wrote a suicide note prior to this and that took one ofhis guns with him to a fishing hole. He states that after thinking about this he decided to come here to be evaluated further. He states that he does not have much support and has lost severalfamily members recently as well. [facility] Medical History Pain in right testicle Smoker Depression Anxiety Home Medications ?Medication ?Instructions ?Recorded ?Last Taken ?Type NK 04/04/25 Unknown History Allergy/AdvReac Type Severity Reaction Status Date / Time No Known Allergies Allergy Verified 05/11/25 13:16 Family History Grandmother Breast cancer Aunt Breast cancer Uncle Cancer Surgical History Status post open reduction and internal fixation (ORIF) of fracture Social History Smoking Status: Current every day smoker tobacco type: cigarettes and e-cigarettes alcohol intake: current alcohol intake frequency: a few times a month substance use type: marijuana ROS ROS ED ROS Narrative Constitutional: Denies fevers, chills, headaches, lightness, dizziness Eyes: Denies double vision blurry vision changes vision Cardiovascular: Denies chest pain Respiratory: Denies shortness of breath Abdomen: Denies abdominal pain nausea vomit diarrhea : Denies any urinary symptoms Neurological: Denies numbness, weakness, tingling Musculoskeletal: Denies back pain Psychiatric: Complains of suicidal ideation as noted above denies homicidal ideation Skin: Denies any rashes or lesions EXAM Physical Exam Narrative Exam Narrative: General: Patient was lying in bed rest comfortably did not appear to be in acutedistress Head: Atraumatic, normocephalic Eyes: PERRL bilaterally, EOMI bilaterally, no conjunctival injection noted Neck: Soft, supple, trachea midline Cardiovascular: Regular rate and rhythm no murmurs gallops rubs noted Respiratory: Clear to auscultation bilaterally no rales rhonchi or wheezes noted Abdomen: Soft, nondistended, no tenderness palpation Extremities: +5/5 strength noted in the bilateral lower extremities Neurological: Patient following commands knew that he was at [facility] year is 2024 Skin: Warm, dry, tact no rashes or lesions noted Const Vital Signs: 05/11/25 13:16 05/11/25 15:28 05/11/25 16:49 Temperature 98.4 F Temperature Source Oral Pulse Rate 84 87 60 Respiratory Rate 16 16 Blood Pressure 141/90 H 139/91 H 127/81 H Blood Pressure Mean 107 107 96 Pulse Ox 100 98 97 Oxygen Delivery Method Room Air Room Air Room Air MDM MDM MDM Narrative Medical decision making narrative: Patient is a 20-year-old male who presented to the emergency department the chief complaint of suicidal ideation. On the differential diagnose includes Melamin to anxiety, depression, suicidal ideation. Patient CBC reviewed showed no evidence leukocytosis white blood count normal at6.4, hemoglobin 13.4, platelet count of 340. Patient sodium was 138, potassium normal 4.2, creatinine was noted to be normal at 0.84. Patient drug screen negative alcohol level less than 10. Patient medically cleared and will be placed into psychiatric facility for stabilization. Patient still pending placement will be signed out to oncoming provider for ultimate disposition see addendum further details. Lab Data Labs: Laboratory Results - last 24 hr 05/11/25 13:29 WBC 6.4 RBC 4.74 Hgb 13.4 Hct 38.6 L MCV 81.4 MCH 28.3 MCHC 34.7 RDW Std Deviation 37.6 RDW Coeff of Emigdio 12.6 Plt Count 340 MPV 9.5 Immature Gran % (Auto) 0.300 Neut % (Auto) 52.1 Lymph % (Auto) 30.8 [place] % (Auto) 11.3 H Eos % (Auto) 4.1 Baso % (Auto) 1.4 H Absolute Neuts (auto) 3.3 Absolute Lymphs (auto) 1.96 Nucleated RBC % 0 Sodium 138 Potassium 4.2 Chloride 101 Carbon Dioxide 25.9 Anion Gap 11 BUN 15 Creatinine 0.84 Estim Creat Clear Calc 133.45 Est GFR (MDRD) Non-Af 126 BUN/Creatinine Ratio 17.7 Glucose 79 Calcium 9.4 Urine Opiates Screen NEGATIVE U Buprenorphine Qual NEGATIVE Ur Oxycodone Screen NEGATIVE Urine Methadone Screen NEGATIVE Urine Fentanyl Screen NEGATIVE Ur Barbiturates Screen NEGATIVE Ur Phencyclidine Scrn NEGATIVE Ur Amphetamines Screen NEGATIVE U Benzodiazepines Scrn NEGATIVE Urine Cocaine Screen NEGATIVE U Cannabinoids Screen NEGATIVE Ethyl Alcohol < 10.1 Discharge Plan Triage Chief Complaint: Suicidal ED Provider: Kobe Pisano Dx/Rx/DC Orders Clinical Impression: Suicidal ideation, Anxiety and depression Prescriptions: No Action NK Primary Care Provider: Mitali Mosher NP Referrals: Mitali Mosher NP, CLAIM AGENT-C [Primary Care Provider] - Print Language: [place] What to do if you have Problems For any increased pain, shortness of breath, bleeding, nausea or vomiting, chestpain, or any unexpected problems, contact your Primary Care Provider. Call [facility] ([phone]) or report tothe closest Emergency Room. Call 911 if necessary. 05/11/25 1658 Cosigner Signature (if applicable): CC: CLAIM AGENT-C Mitali Mosher ~ Signed [facility]07-22-2025 Radiology Diagnostic study note [facility] Imaging Services [address] [place], [place] [address] CT Chest, Abd, Pel w/Contrast MR#: [id number] Acct: [id number] Name: JESSICA BARR Rep #: [id number] : 2005 M 19 From: Jaci Obrien MD PCP: ALEJANDRO Brown Status: RE G CLI Study:CT Chest, Abd, Pel w/Contrast Date of E xam: 03/28/25 Exam# [id number] Ordering Dr: Hector Brunson MD PROCEDURE: CT [...] of metastatic disease. No lymphadenopathy. Reading Location: [facility] CC: ALEJANDRO Mosher; Dr. Renato Brunson MD ~ Panel Gluer: Signed [facility]07-21-2025 Telephone encounter Note* Telephone Encounter - Drew Marks - 03/27/2025 3:31 PM EDT Received transferred call to office with request to schedule 2nd opinion consult at [facility]. Testicular biopsy completed at [facility] with urology. [facility] consult completed today 03/27/2025. OP CT's scheduled 04/12/2025. Office contact information (phone/fax) given to patient with request for faxed records prior to scheduling. [facility]07-21-2025 Miscellaneous Notes* Telephone Encounter - Drew Marks - 03/27/2025 3:31 PM EDT Received transferred call to office with request to schedule 2nd opinion consult at [facility]. Testicular biopsy completed at [facility] with urology. [facility] consult completed today 03/27/2025. OP CT's scheduled 04/12/2025. Office contact information (phone/fax) given to patient with request for faxed records prior to scheduling. [facility] [facility] Medical Records Department [address] [place] [address] Anesthesia Postop Eval I 03/06/25 1317 MR#: [id number] Acct: [id number] Name: JESSICA BARR Rep #:[id number] : 2005 From: Darya Borrego CRNA PCP: ALEJANDRO Brown Status:AD M IN Y Race: C Location: [place] [address] Anesthesia: Postop Eval I Current Vital Signs Temperature: 98 F Pulse Rate: 79 Blood Pressure: 118/61 Respiratory Rate: 20 Pulse Ox: 97 Assessment Airway patent: Yes Spontaneous unlabored respirations: Yes nausea: No Vomiting: No Anesthesia Complication: No Fluid Hydration Crystalloid volume administer (ml): 800 Total IV fluid infused: 800 Progress Note Anesthesia document: Postop Eval 1 completed: Yes 03/06/251316 a DOWNSTREAM BIOMANUFACTURING TECHNICIAN> Date _ Darya Borrego CRNA Cosigner Signature: Date CC: ~ Signed [facility]07-01-2025 Consult note [facility] Medical Records Department [address] [place] [address] Anesthesia Postop Eval II 03/06/255 MR#: [id number] Acct: [id number] Name: JESSICA BARR Rep #:[id number] : 2005 From: Darya Borrego CRNA PCP: Mitali Vidhi, CLAIM AGENT-C Status:AD M IN Y Race: C Location: MS3 MS302 -1 Anesthesia Postop Eval I Sum Postop Eval Completion status Anesthesia document: Postop Eval 1 completed: Yes Anesthesia Postop Eval I Summary Anesthesia Postop Eval I Summary: Anesthesia Postop Eval I: Assessment Summary Airway patent Yes 03/06/25 13:17 DOWNSTREAM BIOMANUFACTURING TECHNICIAN.CSIR Spontaneous unlabored Yes 03/06/25 13:17 DOWNSTREAM BIOMANUFACTURING TECHNICIAN.CSIR respirations Mental status nausea No 03/06/25 13:17 DOWNSTREAM BIOMANUFACTURING TECHNICIAN.CSIR Vomiting No 03/06/25 13:17 DOWNSTREAM BIOMANUFACTURING TECHNICIAN.CSIR Anesthesia Postop Eval I: Fluid Summary Crystalloid volume administer 800 03/06/25 13:17 DOWNSTREAM BIOMANUFACTURING TECHNICIAN.CSIR (ml) Colloids volume administered ( ml) Blood Product volume administered (ml) Total IV fluid infused 800 03/06/25 13:17 DOWNSTREAM BIOMANUFACTURING TECHNICIAN.CSIR Anesthesia Postop Eval I: Summary Notes Anesthesia Complication No 03/06/25 13:17 DOWNSTREAM BIOMANUFACTURING TECHNICIAN.CSIR Anesthesia Complication Comment: Post-operative progress note Anesthesia: Postop Eval II Evaluation Mental status: Awake Pain Level: 1 nausea: No Vomiting: No 03/06/25 1645 a DOWNSTREAM BIOMANUFACTURING TECHNICIAN> Date _ Darya Borrego DOWNSTREAM BIOMANUFACTURING TECHNICIAN Cosigner Signature: Date CC: ~ Signed [facility]07-01-2025 Consult [address] [facility] Medical Records Department [address] [place] [address] Counseling Note - Pharmacy 03/07/25 1054 MR#: [id number] Acct: [id number] Name: MIKEJESSICA STEINER Rep #:[id number] : 2005 19 From: Alondra Seals PCP: JUAN DANIEL BrownC Status:AD M IN Y Location: CT3 BZ303-1 Pharmacy [place] Med Rec Counseling Pharmacy Service has performed discharge medication [...] PRN Constipation #0 tabs 03/07/25 03/07/25 1055 Date _ Alondra [place] Signature (if applicable): Date CC: ~ Signed [facility]07-01-2025 Discharge summary [facility] Medical Records Department [address] [place] [address] Discharge Summary 03/07/25 1010 MR#: [id number] Acct: [id number] Name: JESSICA BARR Rep #:[id number] : 2005 19 From: Frankie Schrader PCP: ALEJANDRO Brown Status:AD M IN Location: [facility] YF508-3 Providers Date of Admission: 03/05/25 Date of [...] or lifting heavy. Dr. Van already prescribed Topock, wqyh-vwo-hznsyjc ibuprofen as anti-inflammatory and pain and Tylenol [...] (Auto) 82.5 H, Lymph % (Auto) 8.2L, [place] % (Auto) 8.3, Eos % (Auto) 0.1, [...] Frankie Moreno Primary Care Provider: Mitali Mosher CLAIM AGENT Consulting Providers: Feliz Van; Felecia Roland Instructions [...] Constipation) Qty: 0 0RF Rx Instructions: Available odbl-aep-inzzzpo pain Referrals / Follow Up: Feliz Van MD [Med Staff - Active Staff] - Mitali Mosher NP, CLAIM AGENT-C [Primary Care Provider] - Disposition Disposition (needs filled in before D/C Order can be placed): Home, Self Care Charges/Coding Visit Charges Inpatient E&M: 65051 Disch Hosp >30min 03/07/25 1013 Cosigner Signature (if applicable): CC: YANCY-Bereket Mosher; Dr. Frankie Moreno MD~ Signed [facility]07-01-2025 Discharge summary [facility] Medical Records Department [address] [place] [address] Instructions for Home/Discharge Instructions 03/07/25 1008 MR#: [id number] Acct: [id number] Name: JESSICA BARR Rep #:[id number] : 2005 19 From: Frankie Schrader PCP: [...] Constipation) Qty: 0 0RF Rx Instructions: Available qgho-yzb-xncauwo pain Referrals / Follow Up: Feliz Van MD [Med Staff - Active Staff] - Mitali Mosher NP, CLAIM AGENT-C [Primary Care Provider] - Disposition Disposition (needs filled in before D/C Order can be placed): Home, Self Care 03/07/25 1010Frankie Moreno MD CC: ALEJANDRO Mosher; Dr. Feliz Van MD; Dr. Felecia Roland MD ~ [facility]07-01-2025 [facility] Medical Records Department [address] [place] [address] Discharge Summary 03/07/25 1010 MR#: [id number] Acct: [id number] Name: JESSICA BARR Rep #: [id number] : 2005 19 From: Frankie Moreno MD PCP: ALEJANDRO Brown Status:ADM IN [facility] Prov[facility] Date of Admission: 03/05/25 Date of [...] or lifting heavy. Dr. Van already prescribed Topock, xhwc-ovx-bbeqsnp ibuprofen as anti-inflammatory and pain and Tylenol [...] 13.2, Plt Count 37 (more content not included)...[facility]06-30-2025 Consult note Author Darya Borrego [facility] Note Date/Time March 07, 2025 11:[address] 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 Spontaneous unlabored Yes 03/06/25 13:17 DOWNSTREAM BIOMANUFACTURING TECHNICIAN.CSIR respirations Mental status nausea No 03/06/25 13:17 DOWNSTREAM BIOMANUFACTURING TECHNICIAN.CSIR Vomiting No 03/06/25 13:17 DOWNSTREAM BIOMANUFACTURING TECHNICIAN.CSIR Anesthesia Postop Eval I: Fluid Summary Crystalloid volume administer 800 03/06/25 13:17 DOWNSTREAM BIOMANUFACTURING TECHNICIAN.CSIR (ml) Colloids volume administered ( ml) Blood Product volume administered (ml) Total IV fluid infused 800 03/06/25 13:17 DOWNSTREAM BIOMANUFACTURING TECHNICIAN.CSIR Anesthesia Postop Eval I: Summary Notes Anesthesia Complication No 03/06/25 13:17 DOWNSTREAM BIOMANUFACTURING TECHNICIAN.CSIR Anesthesia Complication Comment: Post-operative progress note Anesthesia: Postop Eval II Evaluation Mental status: Awake Pain Level: 1 nausea: No Vomiting: No 03/06/251644 <Electronically signed by Darya bhatti CRNA> Date _ Darya Borrego CRNA Cosigner Signature: Date CC: ~ Signed [facility] Work Phone: 1(768) 661-493106-30-2025 Progress note Author Frankie Moreno [facility] Note Date/Time March 06, 2025 3:28 pm [facility] Medical Records Department [address] [place] [address] Progress Note - Hospitalist 03/06/25 0710 MR#: [id number] Acct: [id number] Name: JESSICA BARR Rep #:[id number] : 2005 From: Frankie Schrader PCP: ALEJANDRO Brown Status:AD M IN Location: [facility] QZ075-8 Reason for Visit Reason for Visit: Diagnoses [...] % (Auto) 58.8, Lymph % (Auto) 23.5, [place] % (Auto) 12.4 H, Eos % (Auto) [...] % (Auto) 62.3, Lymph % (Auto) 21.4, [place] % (Auto) 12.0 H, Eos % (Auto) [...] Small hydrocele within the right. Reading Location: [facility] Physical Exam Narrative Does have some pain [...] ppx: SCDs Charges/Coding Visit Charges Inpatient E&M: 70714 Subs Hosp L2 03/06/25 1528 <Electronically signed by Frankie Moreno MD> Cosigner Signature (if applicable): CC: ~ Signed [facility] Work Phone: 1(924) 490-996606-30-2025 Discharge summary Author Feliz Van [facility] Note Date/Time March 06, 2025 2:04 pm [facility] Medical Records Department [address] [place] [address] Instructions for Home/Discharge Instructions 03/06/25 1403 MR#: [id number] Acct: [id number] Name: JESSICA BARR Rep #:[id number] : 2005 19 From: Feliz Van MD [...] Up With: Feliz Van MD When: Call [phone] for an appointment to go over tissue [...] - Active Staff] - Mitali Mosher NP, CLAIM AGENT-C [Primary Care Provider] - 03/06/25 1404<Electronically signed by Feliz Van MD>Feliz Van MD CC: CLAIM AGENT-C Mitali Mosher; Dr. Feliz Van MD; Dr. Felecia Roland MD ~ Signed [facility] Work Phone: 1(209) 822-735006-30-2025 Progress note [facility] Medical Records Department [address] [place] [address] Progress Note - Hospitalist 03/06/25 0710 MR#: [id number] Acct: [id number] Name: JESSICA BARR Rep #:[id number] : 2005 19 From: Frankie Schrader PCP: ALEJANDRO Brown Status:AD M IN Location: CT3 UL443-2 Reason for Visit Reason for Visit: Diagnoses [...] % (Auto) 58.8, Lymph % (Auto) 23.5, [place] % (Auto) 12.4 H, Eos % (Auto) [...] Neut %(Auto) 62.3, Lymph % (Auto) 21.4, [place] % (Auto) 12.0 H, Eos % (Auto) [...] Small hydrocele within the right. Reading Location: [facility] Physical Exam Narrative Does have some pain [...] ppx: SCDs Charges/Coding Visit Charges Inpatient E&M: 38148 Subs Hosp L2 03/06/25 1528 Cosigner Signature (if applicable): CC: ~ Signed [facility]06-30-2025 Consult note Author Darya Borrego [facility] Note Date/Time March 07, 2025 11:[address] [facility] Medical Records Department [address] [facility] [place] [address] Anesthesia Postop Eval I 03/06/25 1317 MR#: [id number] Acct: [id number] Name: JESSICA BARR Rep #:[id number] : 2005 19 From: Darya Borrego CRNA PCP: JUAN DANIEL BrownC Status:AD M IN Y Race: C Location: [place] [address] Anesthesia: Postop Eval I Current Vital Signs Temperature: 98 F Pulse Rate: 79 Blood Pressure: 118/61 Respiratory Rate: 20 Pulse Ox: 97 Assessment Airway patent: Yes Spontaneous unlabored respirations: Yes nausea: No Vomiting: No Anesthesia Complication: No Fluid Hydration Crystalloid volume administer (ml): 800 Total IV fluid infused: 800 Progress Note Anesthesia document: Postop Eval 1 completed: Yes 03/06/25 1317 <Electronically signed by Darya bhatti CRNA> Date _ Darya Borrego CRNA Cosigner Signature: Date CC: ~ Signed [facility] Work Phone: [phone]) 752-855006-30-2025 Discharge summary [facility] Medical Records Department [address] [place] [address] Instructions for Home/Discharge Instructions 03/06/25 1403 MR#: [id number] Acct: [id number] Name: JESSICA BARR Rep #:[id number] : 2005 19 From: Feliz Van MD PCP: JUAN DANIEL BrownC Status:AD M IN Discharge Instructions Diet Discharge [...] Up With: Feliz Van MD When: Call [phone] for an appointment to go over tissue [...] - Active Staff] - Mitali Mosher NP, CLAIM AGENT-C [Primary Care Provider] - 03/06/25 1404Feliz Van MD CC: CLAIM AGENT-C Mitali Mosher; Dr. Feliz Van MD; Dr. Felecia Roland MD ~ [facility]06-30-2025 Consult note [facility] Note Date/Time March 06, 2025 11:[address] 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 Hx Hospitalization Any Problems With Anesthesia No [...] take am of surgery PONV PONV - culinary arts instructor: PONV - culinary arts instructor Female HX of Motion Sickness HX of N/V After Surgery Non-Smoker Duration of Surgery greater than 60 minutes Number of Risk Factors PONV Score Height & Weight Height & Weight: Anesthesia: Height & Weight Height 5 ft 8 in 03/06/25 08:49 Weight: 73.482 kg 03/06/25 08:49 Body Mass Index (BMI) 24.6 03/06/25 08:49 Respiratory Assessment Respiratory Assessment - culinary arts instructor: Respiratory Tract Infection Hx - culinary arts instructor Hx Respiratory Tract Infection No 03/05/25 20:37 Any additional information?: Yes Hx Respiratory Tract Infection: Yes History of Anesthesia Respiratory Infection details: Patient has had a cough for about a week and a half. Better for about a few days now. STOP Sleep Apnea STOP Sleep Apnea - culinary arts instructor: STOP Sleep Apnea - culinary arts instructor Hx Hypertension No 03/05/25 18:36 Hx Sleep [...] Tobacco Use History Tobacco Use History - culinary arts instructor: Tobacco Use History - culinary arts instructor Tobacco Use Smoking Status Current every day smoker 03/05/25 18:36 Hx Tobacco Use Yes 03/05/25 18:36 Years Smoking Packs Smoked per Day Smoking Cessation Date was within the last 15 years Hx Smoking Cessation Date Hx Smoking Cessation Counseling Hematologic Medial History Hematologic Hx - culinary arts instructor: Hematologic Medical Hx - doll eye setter Hx of Blood Transfusion No 03/05/25 18:36 [...] confused, unrespo /Reproduction History /Reproductive History - culinary arts instructor: /Reproductive Hx- culinary arts instructor Hx Now No 03/05/25 20:37 Gestational Age [...] mls @ 15 mls/hr 03/05/25 18:42 IV .[id number] PRN Saline Flush Sodium Chloride 250 mls @ 15 mls/hr 03/05/25 18:42 IV .[id number] PRN Additional IVPB Infusion Cefazolin Sodium 2 [...] MD Cosigner Signature: Date CC: ~ Signed [facility] Work Phone: [phone] 540-391206-30-2025 Procedure note [facility] Medical Records Department [address] [place] [address] Operative Report 03/06/25 1301 MR#: [id number] Acct: [id number] Name: JESSICA BARR Rep #:[id number] : 2005 19 From: Feliz Van MD PCP: ALEJANDRO Brown Status:AD M IN Location: [place] [address]-1 Operative Report (Standard) Operative Information Date of Procedure: 03/06/25 Pre-Operative Diagnosis: Right testicular mass Post-Operative Diagnosis: The same Surgery/Procedure Performed: Right radical orchiectomy electric motor repair supervisor: No Type of Anesthesia: General RN Documented [...] SCD's VTE Pharm Prophylaxis ordered?: No 03/06/25 8724 Cosigner Signature (if applicable): CC: ALEJANDRO Mosher; Dr. Feliz Van MD; Dr. Felecia Roland MD~ Signed [facility]06-30-2025 Consult note 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 Hx Hospitalization Any Problems With Anesthesia No [...] take am of surgery PONV PONV - culinary arts instructor: PONV - culinary arts instructor Female HX of Motion Sickness HX of N/V After Surgery Non-Smoker Duration of Surgery greater than 60 minutes Number of Risk Factors PONV Score Height & Weight Height & Weight: Anesthesia: Height & Weight Height 5 ft 8 in 03/06/25 08:49 Weight: 73.482 kg 03/06/25 08:49 Body Mass Index (BMI) 24.6 03/06/25 08:49 Respiratory Assessment Respiratory Assessment - culinary arts instructor: Respiratory Tract Infection Hx - culinary arts instructor Hx Respiratory Tract Infection No 03/05/25 20:37 Any additional information?: Yes Hx Respiratory Tract Infection: Yes History of Anesthesia Respiratory Infection details: Patient has had a cough for about a week and a half. Better for about a few days now. STOP Sleep Apnea STOP Sleep Apnea - culinary arts instructor: STOP Sleep Apnea - culinary arts instructor Hx Hypertension No 03/05/25 18:36 Hx Sleep [...] Tobacco Use History Tobacco Use History - culinary arts instructor: Tobacco Use History - culinary arts instructor Tobacco Use Smoking Status Current every day smoker 03/05/25 18:36 Hx Tobacco Use Yes 03/05/25 18:36 Years Smoking Packs Smoked per Day Smoking Cessation Date was within the last 15 years Hx Smoking Cessation Date Hx Smoking Cessation Counseling Hematologic Medial History Hematologic Hx - culinary arts instructor: Hematologic Medical Hx - 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 Date of Discharge: 03/07/25[facility] Work Phone: 1(441) 792-902206-30-2025 Consult note Author Feliz Van [facility] Note Date/Time March 06, 2025 7:27 am [facility] Medical Records Department [address] [place] [address] Consultation - Urology 03/06/25 0726 MR#: [id number] Acct: [id number] Name: JESSICA BARR Rep #:[id number] : 2005 19 From: Feliz Van MD PCP: ALEJANDRO Brown Status:AD M IN Location: CT3 SW790-1 Assessment & Plan Assessment/Plan (1) Mass of [...] this is very likely a testicular cancer. [facility] Medical History Smoker Depression Anxiety Home Medications [...] % (Auto) 58.8, Lymph % (Auto) 23.5, [place] % (Auto) 12.4 H, Eos % (Auto) [...] % (Auto) 62.3, Lymph % (Auto) 21.4, [place] % (Auto) 12.0 H, Eos % (Auto) [...] Small hydrocele within the right. Reading Location: [id number] 03/06/25726 <Electronically signed by Feliz Van MD> Cosigner Signature (if applicable): CC: CLAIM AGENT-C Mitali Mosher~ Signed [facility] Work Phone: 1(487) 330-332206-30-2025 Consult note [facility] Medical Records Department [address] [place] [address] Consultation - Urology 03/06/25725 MR#: [id number] Acct: [id number] Name: JESSICA BARR Rep #:[id number] : 2005 19 From: Feliz Van MD PCP: ALEJANRDO Brown Status:AD M IN Location: [facility] IT716-2 Assessment & Plan Assessment/Plan (1) Mass of [...] this is very likely a testicular cancer. [facility] Medical History Smoker Depression Anxiety Home Medications [...] % (Auto) 58.8, Lymph % (Auto) 23.5, [place] % (Auto) 12.4 H, Eos % (Auto) [...] % (Auto) 62.3, Lymph % (Auto) 21.4, [place] % (Auto) 12.0 H, Eos % (Auto) [...] Small hydrocele within the right. Reading Location: [id number] 03/06/25 0727 Cosigner Signature (if applicable): CC: ALEJANDRO Mosher~ Signed [facility]06-29-2025 Discharge summary Author Batsheva García [facility] Note Date/Time March 05, 2025 6:15 pm [facility] Medical Records Department [address] [place] [address] Emergency Department Summary 03/05/25 MR#: [id number] Acct: [id number] Name: JESSICA BARR Rep #:[id number] : 2005 19 From: Batsheva KIRBY PCP: ALEJANDRO Brown Status:AD M IN Location: MS3 DM635-9 <Statement entered by Kobe Pisano DO - 03/05/25 18:15> Patient was seen and examined with physician assistant women's tennis coach Batsheva All components of the history and [...] Small hydrocele within the right. Reading Location: [id number] Discharge Plan Triage Chief Complaint: Male Pain/Injury [...] - Active Staff] - Mitali Mosher NP, CLAIM AGENT-C [Primary Care Provider] - Activity Restrictions/Additional Instructions: [...] Dulcolax while using this medicine. Print Language: Central [place] Disposition Disposition: Home, Self Care Discharge Date/Time: 03/05/25 17:30 What to do if you have Problems For any increased pain, shortness of breath, bleeding, nausea or vomiting, chestpain, or any unexpected problems, contact your Primary Care Provider. Call [facility] ([phone]) or report to the closest Emergency Room. Call 911 if necessary. 03/05/25 1750 <Electronically signed by Batsheva García PA> Cosigner Signature (if applicable): 03/05/251814 <Electronically signed by Kobe Pisano DO> CC: ALEJANDRO Mosher ~ Signed [facility] Work Phone: 1(560) 650-588706-29-2025 History and physical note Author Felecia Roland [facility] Note Date/Time March 05, 2025 6:12 pm [facility] Medical Records Department [address] [place] [address] H&P Exam - Hospitalist 03/05/251805 MR#: [id number] Acct: [id number] Name: JESSICA BARR Rep #:[id number] : 2005 19 From: Felecia Roland MD PCP: ALEJANDRO Brown Status:AD M IN Location: MS3 UH827-8 HPI - General General Date of Admission: 03/05/25 Date of Service: 03/05/25 Chief Complaint: Right testicular pain HPI Narrative JESSICA BARR, is a 19-year-old male presented [facility] 03/05/2025 with continued right testicular pain [...] Small hydrocele within the right. Reading Location: [facility] Assessment & Plan Assessment/Plan (1) Mass of [...] Roland MD Charges/Coding Visit Charges Inpatient E&M: 40533 Init Hosp L1 03/05/251811 <Electronically signed by Felecia Roland MD> Cosigner Signature (if applicable): CC: ALEJANDRO Mosher; Dr. Felecia Roland MD~ Signed [facility] Work Phone: 1(244) [phone] Evaluation note* Diagnosis Onset Date Resolution Status Admit Date Mass of right testicle acute [facility] 2024 6:06pm Pain in right testicle acute [facility] 2024 6:06pm Physical exam, routine acute [facility] 2024 6:06pm [facility] Work Phone: 1(135) 415-759306-29-2025 Evaluation note* Diagnosis Onset Date Resolution Status Admit Date Physical exam, routine acute [facility] 2024 6:06pm Mass of right testicle resolved [facility] 2024 6:06pm Pain in right testicle inactive [facility] 2024 6:06pm Non-seminomatous testicular cancer acute March 27, 2025 1:49pm [facility] Work Phone: 1(928) 955-422806-29-2025 Evaluation note* Diagnosis Onset Date Resolution Status Admit Date Physical exam, routine acute [facility] 2024 6:06pm Mass of right testicle resolved [facility] 2024 6:06pm Pain in right testicle inactive [facility] 2024 6:06pm Non-seminomatous testicular cancer acute March 27, 2025 1:49pm Confusion acute April 04 2:06pm Non-seminomatous testicular cancer acute April 04, 2025 2:06pm Lung nodules chronic April 04, 2 025 2:06pm [facility] Work Phone: 1(805) 152-150306-29-2025 Evaluation note* Diagnosis Onset Date Resolution Status Admit Date Physical exam, routine acute [facility] 2024 6:06pm Mass of right testicle resolved [facility] 2024 6:06pm Pain in right testicle inactive [facility] 2024 6:06pm Non-seminomatous testicular cancer acute March 27, 2025 1:49pm Confusion acute April 04 2:06pm Non-seminomatous testicular cancer acute April 04, 2025 2:06pm Lung nodules chronic April 04, 2 025 2:06pm Confusion acute April 11 1:38pm Non-seminomatous testicular cancer acute April 11, 2025 1:38pm Lung nodules chronic April 11, 2025 1:38pm [facility] Work Phone: 1(474) 915-444806-29-2025 Evaluation note* Diagnosis Onset Date Resolution Status Admit Date Physical exam, routine acute [facility] 2024 6:06pm Mass of right testicle resolved [facility] 2024 6:06pm Pain in right testicle inactive [facility] 2024 6:06pm Non-seminomatous testicular cancer acute March 27, 2025 1:49pm Confusion acute April 04 2:06pm Non-seminomatous testicular cancer acute April 04, 2025 2:06pm Lung nodules chronic April 04, 2 025 2:06pm Confusion acute April 11 1:38pm Non-seminomatous testicular cancer acute April 11, 2025 1:38pm Lung nodules chronic April 11, 2025 1:38pm Non-seminomatous testicular cancer acute May 03 9:00am Lung nodules chronic May 03, 2025 9:00am [facility] Work Phone: 1(567) 823-476406-29-2025 Discharge summary [facility] Medical Records Department [address] [place] [address] Emergency Department Summary 03/05/25 MR#: [id number] Acct: [id number] Name: JESSICA BARR Rep #:[id number] : 2005 19 From: Batsheva KIRBY PCP: ALEJANDRO Brown Status:AD M IN Location: [place] [address] Patient was seen and examined with physician assistant women's tennis coach Batsheva All components of the history and [...] Small hydrocele within the right. Reading Location: [id number] Discharge Plan Triage Chief Complaint: Male Pain/Injury [...] - Active Staff] - Mitali Mosher NP, CLAIM AGENT-C [Primary Care Provider] - Activity Restrictions/Additional Instructions: [...] or Dulcolax while using thismedicine. Print Language: Central African Disposition Disposition: Home, Self Care Discharge Date/Time: 03/05/25 17:30 What to do if you have Problems For any increased pain, shortness of breath, bleeding, nausea or vomiting, chestpain, or any unexpected problems, contact your Primary Care Provider. Call [facility] ([phone]) or report tothe closest Emergency Room. Call 911 if necessary. 03/05/25 1750 Cosigner Signature (if applicable): 03/05/25 1815 CC: ALEJANDRO Mosher ~ Signed [facility]06-29-2025 History and physical note [facility] Medical Records Department [address] [place] [address] H&P Exam - Hospitalist 03/05/25 1806 MR#: [id number] Acct: [id number] Name: JESSICA BARR Rep #:[id number] : 2005 19 From: Felecia Roland MD PCP: Mitali Mosher NP-Bereket Status:AD M IN Location: [facility]3 [id number] HPI - General General Date of Admission: 03/05/25 Date of Service: 03/05/25 Chief Complaint: Right testicular pain HPI Narrative JESSICA BARR, is a 19-year-old male presented [facility] 03/05/2025 with continued right testicular pain [...] Small hydrocele within the right. Reading Location: [facility] Assessment & Plan Assessment/Plan (1) Mass of [...] Roland MD Charges/Coding Visit Charges Inpatient E&M: 66748 Init Hosp L1 03/05/25 1812 Cosigner Signature (if applicable): CC: CLAIM AGENT-C Mitali Mosher; Dr. Felecia Roland MD~ Signed [facility]06-29-2025 Radiology Diagnostic study note [facility] Imaging Services [address] [place] [address] Testicular with Arterial Flow MR#: [id number] Acct: [id number] Name: JESSICA BARR Rep #: [id number] : 2005 M 19 From: Jaci Obrien MD PCP: JUAN DANIEL BrownC Status: RE G ER Study:Testicular with Arterial Flow Date of E xam: 03/05/25 Exam# [id number] Ordering Dr: Batsheva Markham PA ADDENDUM by Dr. Mauricio Obrien MD on 03/05/[address] Pisano was notified by Mauricio Obrien at 5:21 pm EST on 03/05/2025. Reading Location: [id number] 03/05/25 1724 Date cc: ALEJANDRO Mosher; KOFI [...] Small hydrocele within the right. Reading Location: [facility] CC: ALEJANDRO Mosher; KOFI Amato ~ Panel Gluer: Signed [facility]06-28-2025 Hospital Discharge instructionsAdditional Instructions The ultrasound [...] like MiraLAX or Dulcolax while using this medicine.[facility] Work Phone: 1(219) 530-585906-28-2025 Discharge summary [facility] Medical Records Department [address] [place] [address] Emergency Department Summary 03/04/25 MR#: [id number] Acct: [id number] Name: JESSICA BARR Rep #:[id number] : 2005 19 From: Kobe Pisano DO PCP: JUAN DANIEL BrownC Status:RE G ER Location: ED HPI History [...] follow commands knew that he was at [facility] year is 2024 Skin: Warm, dry, [...] 73.9 H Lymph % (Auto) 13.7 L [place] % (Auto) 9.8 Eos % (Auto) 1.7 [...] Clarity Clear Urine pH 8.0 Ur Specific [place] 1.015 Urine Protein 15 H Urine Glucose [...] testicular torsion. Small right-sided hydrocele. Reading Location: [facility] Discharge Plan Triage Chief Complaint: Male Pain/Injury ED Provider: Kobe Pisano Dx/Rx/DC Orders Clinical Impression: Pain in right testicle, Mass of right testicle Prescriptions: No Action sertraline [Zoloft] 25 mg tablet 25 mg PO QHS Qty: 30 0RF Primary Care Provider: Mitali Mosher NP Referrals: Mitali Mosher NP, CLAIM AGENT-C [Primary Care Provider] - Feliz Van MD [...] urologist immediately. You can also follow-up with [facility] in [place] number is [phone]. Rotate Tylenol and ibuprofen jgqmmt-csf-wgtjn for pain control when you do this you can take something every 3 hours max dose of Tylenol in 24 hours 4000 mg maxdose of ibuprofen in 24 hours 3200 mg. Print Language: Central African Disposition Disposition: Home, Self Care What to do if you have Problems For any increased pain, shortness of breath, bleeding, nausea or vomiting, chestpain, or any unexpected problems, contact your Primary Care Provider. Call [facility] ([phone]) or report tothe closest Emergency Room. Call 911 if necessary. 03/04/25 1526 Cosigner Signature (if applicable): CC: ALEJANDRO Mosher ~ Signed [facility]06-28-2025 Radiology Diagnostic study note [facility] Imaging Services [address] [place] [address] Testicular with Arterial Flow MR#: [id number] Acct: [id number] Name: JESSICA BARR Rep #: [id number] : 2005 M 19 From: Jaci Obrien MD PCP: ALEJANDRO Brown Status: RE G ER Study:Testicular with Arterial Flow Date of E xam: 03/04/25 Exam# [id number] Ordering Dr: Luciano Pisano DO PROCEDURE: TESTICULAR [...] testicular torsion. Small right-sided hydrocele. Reading Location: [facility] CC: CLAIM AGENTWilliam Mosher; Dr. Kobe Pisano DO ~ Panel Gluer: Signed [facility]06-28-2025 Discharge summary Author Kobe Pisano [facility] Note Date/Time March 04, 2025 3:26 pm [facility] Medical Records Department [address] [place] [address] Emergency Department Summary 03/04/25 MR#: [id number] Acct: [id number] Name: JESSICA BARR Rep #:[id number] : 2005 19 From: Kobe Pisano DO [...] follow commands knew that he was at [facility] year is 2024 Skin: Warm, dry, [...] 73.9 H Lymph % (Auto) 13.7 L [place] % (Auto) 9.8 Eos % (Auto) 1.7 [...] Clarity Clear Urine pH 8.0 Ur Specific [place] 1.015 Urine Protein 15 H Urine Glucose [...] testicular torsion. Small right-sided hydrocele. Reading Location: [facility] Discharge Plan Triage Chief Complaint: Male Pain/Injury ED Provider: Kobe Pisano Dx/Rx/DC Orders Clinical Impression: Pain in right testicle, Mass of right testicle Prescriptions: No Action sertraline [Zoloft] 25 mg tablet 25 mg PO QHS Qty: 30 0RF Primary Care Provider: Mitali Mosher NP Referrals: Mitali Mosher NP, CLAIM AGENT-C [Primary Care Provider] - Feliz Van MD [[facility] Staff - Active Staff] - Activity Restrictions/Additional Instructions: You need to call Dr. Van office immediately Thursday as there is a highconcern that you have testicular cancer as there is a mass in your right testicle. If they are unable to see you secondary to insurance reasons or any other reason you need to follow-up with a another urologist immediately. You can also follow-up with [facility] in [place] number is [phone]. Rotate Tylenol and ibuprofen qtklof-ejl-iazyc for pain control when you do this you can take something every 3 hours max dose of Tylenol in 24 hours 4000 mg maxdose of ibuprofen in 24 hours 3200 mg. Print Language: Central African Disposition Disposition: Home, Self Care What to do if you have Problems For any increased pain, shortness of breath, bleeding, nausea or vomiting, chestpain, or any unexpected problems, contact your Primary Care Provider. Call [facility] ([phone]) or report to the closest Emergency Room. Call 911 if necessary. 03/04/25 1526 <Electronically signed by Kobe Pisano DO> Steven Signature (if applicable): CC: ALEJANDRO Mosher ~ Signed [facility] Work Phone: 1(350) 837-272106-28-2025 Hospital Discharge instructionsAdditional Instructions You need to [...] can also follow-up with [facility] in [place] number is [phone]. Rotate Tylenol and ibuprofen tggakr-lqk-htjzk for pain control when you do this you can take something every 3 hours max dose of Tylenol in 24 hours 4000 mg max dose of ibuprofen in 24 hours 3200 mg.[facility] Work Phone: 1(175) 589-387506-19-2025 Hospital Discharge instructions Patient Education 02/23/2025 05:59:15 [...] wound Decreased movement around the injured area 1110-8080 [employer]. [address] [place] [address] 17063. All rights reserved. This information is not intended as a substitute for professional medical care. Always follow yourhealthcare professional's instructions. Follow Up Care 02/23/2025 05:50:31 With:MITALI MOSHER Address: [address] [place] [id number] [phone] When:2-4 days [facility] 06-19-2025 Note Discharge Instructions Thank you for allowing [facility] to assist you with your healthcare needs. [...] Up with MITALI MOSHER When:Within 2-4 days Where:[address] [place] [phone] Allergies NKA Medications Please ask your primary [...] wound Decreased movement around the injured area 7191-4763 [employer]. [address] [place] [address]. All rights reserved. This information is not intended as a substitute for professional medical care. Always follow yourhealthcare professional's instructions. Additional Information VACCINATE! IT SAVES LIVES! Members of the community who have not yet received the COVID-19 vaccine and would like to receive it can visit one of [facility] vaccine clinics. There are many vaccine clinic locations within the [facility]. For locations and available times, please visit www.gettheshot.coronavirus.[place].gov/. It is important to note that some COVID mobile vaccine clinics are held outdoors and may be canceled in rainy or stormy conditions. To learn more about pediatric vaccinations (ages 5-11), we invite you to visit the [facility] webpage. https://www.[facility].org/pages/7483-Perbi-Oqvkmklmdze-Pfpmhvuekr-Ntppx-Hbn stions.htmlTo learn more about the COVID-19 vaccine, we invite you to visit the CDC website for a list of frequently asked questions. https://www.cdc.gov/coronavirus/2019-ncov/vaccines/faq.html [facility] Patient [facility] Access Instructions: Stay connected with your healthcare team and access your personal medical information anytime with the [facility] Patient Portal. If you would like a full copy of your medical records please contact the [facility] Medical Records Department Thursday through Thursday between 8a.m. and 4:30p.m. Please follow the directions below to access the portal: 1.Access the email account you provided upon registration to the [facility].2.Look for an invitation email from [facility].3.Open the email and access the invitation link: Accept Invitation to [facility]4.Fill in the required momin to create your account. Sign into www.Clever Goats Media with your username and password that you [...] you will allow to register on the [facility] Patient Portal for access to your information. You can also access the [facility] Patient Portal on the KeyEffx. Simply click on Health Records under Earlier Media and then click on the DeepRockDrive logo. HOW TO SAFELY DISPOSE OF PRESCRIPTION [...] Call your local pharmacy or go to http://Lookmash.HeatGear/7V5Pt4u to find one close to you.3.Make use of household items: Use cat litter or old coffee grounds to dispose medications if other options arenot available. Mix your drugs with these household products, seal them in an airtight container andthrow it into the garbage. Call [facility]: [phone] to be sure your drugs can be [...] aware that I should contact my doctor. Patient/Engineering Clerk Signature: Date/Time: Relationship to Patient: Witness Name/Signature: Date/Time: [facility]06-09-2025 Telephone encounter Note* Telephone Encounter - Aura Mendosa - 02/13/2025 2:07 PM EDT Left message to schedule appointment [facility]06-09-2025 Miscellaneous Notes* Telephone Encounter - Aura [...] which facility was the patient seen at: [facility] bath Was an appointment scheduled (Y/N): N Person calling if other than patient: N Return call to if other than patient: N Best contact number: [phone] Thank you, Mario Kay February 08, 2025 10:20 AM [facility] Hospital Discharge instructions Patient Education 02/08/2025 [...] bent back when typing. You may use rvzd-edo-yvgfxqn pain medicine to treat pain and inflammation, [...] Your whole arm becomes swollen or weak 8956-4528 [employer]. [address] [place] [address]264. All rights reserved. This information is not intended as a substitute for professional medical care. Always follow yourhealthcare professional's instructions. Follow Up Care 02/08/2025 16:26:34 With:LUL CHICAS DO, [facility] Address: [address] [facility] [facility] [address] [facility] [place] [address] [phone] When:2-4 days With:AMILCAR CASON DO, Orthopedic Address: [address] [facility], [place] [address] [phone] When:2-4 days With:ROSEMARIE ZIMMERMAN DO, Orthopedic Address: [address] [facility], [place] [address]- [phone] When:2-4 days With:JUSTO FLORES DO Orthopedic Address: [address] [place] [address] [address] [place] [address] [phone] When:2-4 days [facility] 06-04-2025 Note Discharge Instructions Thank you for allowing [facility] to assist you with your healthcare needs. [...] Appointments Follow Up with LUL CHICAS DO [facility] When:Within 2-4 days Where:[address] [facility] [address] [facility] [place] [address] [phone] Follow Up with AMILCAR CASON DO, Orthopedic When:Within 2-4 days Where:[address] [facility], [place] [address] [phone] Follow Up with ROSEMARIE ZIMMERMAN DO Orthopedic When:Within 2-4 days Where:[address] [facility], [place] [address]- [phone] Follow Up with JUSTO FLORES DO Orthopedic When:Within 2-4 days Where:[facility], [address] [place] [address] [phone] Allergies NKA Medications Please ask your primary [...] are a day sleeper or work a assistant printer floor covering; or kidney disease (or if you are [...] may report side effects to FDA at 9-118-GZA-7102. What other drugs will affect gabapentin? Taking [...] may affect gabapentin. This includes prescription and owey-nxg-vfoaoby medicines, vitamins, and herbal products. Not all [...] to ensure that the information provided by [employer]. ('Multum') is accurate, up-to-date, and complete, but no guarantee is made to that effect. Drug information contained herein may be time sensitive. [employer] information has been compiled for use by healthcare practitioners and consumers in the [place] and therefore [employer] does not warrant that uses outside of the [place] are appropriate, unless specifically indicated otherwise. [employer]'s drug information does not endorse drugs, diagnose patients or recommend therapy. [facility] drug information isan informational resource designed to [...] effective or appropriate for any given patient. [facility] does not assume any responsibility for any aspect of healthcare administered with the aid of information [facility] provides. The information contained herein is not intended to cover all possible uses, directions, precautions, warnings, drug interactions, allergic reactions, or adverse effects. If you have questions about the drugs you are taking, check with your doctor, nurse or pharmacist. Copyright 7749-6072 [facility] [employer]. Version: 18.. Revision Date: 03/09/2023. methylprednisolone (oral) [...] expected to produce life threatening symptoms. However, mcc use of high steroid doses can lead [...] may report side effects to FDA at 1-843-KZY-3409. What other drugs will affect methylprednisolone? Other drugs may interact with methylprednisolone, including prescription and fcmd-qca-qndmxms medicines, vitamins, and herbal products. Tell each [...] to ensure that the information provided by [employer]. ('[employer]') is accurate, up-to-date, and complete, but no guarantee is made to that effect. Drug information contained herein may be time sensitive. [employer] information has been compiled for use by healthcare practitioners and consumers in the [place] and therefore [employer] does not warrant that uses outside of the [place] are appropriate, unless specifically indicated otherwise. [employer]'s drug information does not endorse drugs, diagnose patients or recommend therapy. [employer] drug information isan informational resource designed to [...] effective or appropriate for any given patient. [employer] does not assume any responsibility for any aspect of healthcare administered with the aid of information [employer] provides. The information contained herein is not intended to cover all possible uses, directions, precautions, warnings, drug interactions, allergic reactions, or adverse effects. If you have questions about the drugs you are taking, check with your doctor, nurse or pharmacist. Copyright 7424-5243 [employer]. Version: 9.01. Revision Date: 05/06/2017. Education Materials [...] bent back when typing. You may use juus-zcy-ftrurkg pain medicine to treat pain and inflammation, [...] Your whole arm becomes swollen or weak 0193-3573 [employer]. [address] [place] [address]79. All rights reserved. This information is not intended as a substitute for professional medical care. Always follow yourhealthcare professional's instructions. Additional Information VACCINATE! IT SAVES LIVES! Members of the community who have not yet received the COVID-19 vaccine and would like to receive it can visit one of [facility] vaccine clinics. There are many vaccine clinic locations within the [facility]. For locations and available times, please visit www.gettheshot.coronavirus.[place].gov/. It is important to note that some COVID mobile vaccine clinics are held outdoors and may be canceled in rainy or stormy conditions. To learn more about pediatric vaccinations (ages 5-11), we invite you to visit the [facility] webpage. https://www.[facility].org/pages/2404-Myiwk-Qpidsnvpfzj-Yctcmrhmxj-Oczir-Vrh stions.htmlTo learn more about the COVID-19 vaccine, we invite you to visit the CDC website for a list of frequently asked questions. https://www.cdc.gov/coronavirus/2019-ncov/vaccines/faq.html [facility] Patient Portal Access Instructions: Stay connected with your healthcare team and access your personal medical information anytime with the [facility] Patient Portal. If you would like a full copy of your medical records please contact the [facility] Medical Records Department Thursday through Thursday between 8a.m. and 4:30p.m. Please follow the directions below to access the portal: 1.Access the email account you provided upon registration to the [facility].2.Look for an invitation email from [facility].3.Open the email and access the invitation link: Accept Invitation to [facility].Fill in the required momin to create your account. Sign into www.Clever Goats Media with your username and password that you [...] you will allow to register on the [facility] Patient Portal for access to your information. You can also access the [facility] Patient Portal on the Rank & Style sammy. Simply click on Health Records under Catglobeta and then click on the DeepRockDrive logo. HOW TO SAFELY DISPOSE OF PRESCRIPTION [...] Call your local pharmacy or go to http://Lookmash.HeatGear/4L0Qo4p to find one close to you.3.Make use of household items: Use cat litter or old coffee grounds to dispose medications if other options arenot available. Mix your drugs with these household products, seal them in an airtight container andthrow it into the garbage. Call [facility]: [phone] to be sure your drugs can be [...] aware that I should contact my doctor. Patient/Engineering Clerk Signature: Date/Time: Relationship to Patient: Witness Name/Signature: Date/Time: [facility] [id number] Telephone encounter Note* Telephone Encounter - Aura Mendosa - 02/08/2025 [...] which facility was the patient seen at: [facility] bath Was an appointment scheduled (Y/N): N Person calling if other than patient: N Return call to if other than patient: N Best contact number: [phone] Thank you, Mario Kay February 08, 2025 10:20 AM [facility]05-25-2025 Discharge summary [facility] Medical Records Department [address] [place] [address] Emergency Department Summary 01/29/25 MR#: [id number] Acct: [id number] Name: CORTNEYJESSICA Rep #:[id number] : 2005 19 From: Lupillo Alvarado MD [...] oriented x3 and CN's II-XII intact bilaterally [place] Coma Scale: document GCS findings Spontaneous Obeys [...] - Keep Myrna appointment Mitali Mosher NP, CLAIM AGENT-C [Primary Care Provider] - 1-2 Weeks Activity Restrictions/Additional Instructions: 1. Your blood pressure readings are elevated. Should have this rechecked by your provider ElizabethSteiner, CLAIM AGENT. 2. Take 1 Zoloft tablet at bedtime. 3. Make/keep appointment at counseling center Print Language: Central African Disposition Disposition: Home, Self Care What to do if you have Problems For any increased pain, shortness of breath, bleeding, nausea or vomiting, chestpain, or any unexpected problems, contact your Primary Care Provider. Call [facility] ([phone]) or report tothe closest Emergency Room. Call 911 if necessary. 01/29/25 6093 Cosigner Signature (if applicable): CC: ALEJANDRO Mosher ~ Signed [facility]02-11-2025 Telephone encounter Note* Telephone Encounter - [...] as a reminder for OPTIONAL repeat imaging. [id number] Miscellaneous Notes* Telephone Encounter - Fabiola Arshad [...] for OPTIONAL repeat imaging. documented in this encounterSumma [id number] Note ORIGINAL EXAMINATION: THREE XRAY VIEWS OF [...] Sign Date: 08/11/2024 3:52:26 PM Ordering Provider: [facility]09-26-2024 Note [facility] Medical Records Department [address] [place] [address] Discharge Summary 06/02/24 1442 MR#: [id number] Acct: [id number] Name: JESSICA BARR Rep #: [id number] : 2005 19 From: Yvette Nieto DO PCP: Care Physician,No Primary Status:ADM IN Location: [place] [address] Providers Date of Admission: 05/30/24 Date of [...] soft to palpation and (more content not included)...[facility]09-23-2024 Note [facility] Medical Records Department [address] [place] [address] Consultation 05/30/24 1526 MR#: [id number] Acct: [id number] Name: MIKEJATINJESSICA Irina Rep #: [id number] : 2005 19 From: Yuriy Ding MD [...] M who presents with a pharyngeal abscess. [place] positive, progressively worsening sore throat; placed on [...] 90.2 H, Lymph % (Auto) 3.9 L, [place] % (Auto) 4.5, Eos % (Auto) 0.0, [...] Felix MD at 14:23 EDT , 05/30/24 1538 Cosigner Signature (if applicable): CC: No Primary Care Physician [facility] Instructions* Patient Instructions* Ivonne Cooper APRN.[employer] - 05/13/2024 12:37 PM EDT ASSESSMENT/PLAN: 1. [...] Discussed expected course of illness Ivonne Cooper APRN.[employer] Treatment for Viral Upper Respiratory Tract Infections [...] fluids help open respiratory and sinus passages [place] Nasal Camino may offer relief of nasal and head [...] worse rather than better documented in [facility]Mer[facility]-2024 NoteHNO ID: [id number] Author: IVONNE COOPER APRN.[employer] Service: ? Author Type: Nurse Practitioner Type: [...] Maternal Grandmother Coronary Artery Disease Maternal Grandfather DC Coronary Artery Disease Paternal Grandfather DC Breast Cancer Other Social History Tobacco Use [...] Discussed expected course of illness Ivonne Cooper APRN.[facility]09-06-2024 History of Present illness Narrative* Ivonne Cooper APRN.[facility] - 05/13/2024 12:34 PM EDT Subjective Fever [...] Maternal Grandmother Coronary Artery Disease Maternal Grandfather DC Coronary Artery Disease Paternal Grandfather DC Breast Cancer Other Social History Tobacco Use [...] Discussed expected course of illness Ivonne Cooper APRN.[employer] documented in this encounterMer[facility]08-20-2024 NoteHNO ID: [id number] Author: LUL BROWN APRN.[employer] Service: ? Author Type: Nurse Practitioner Type: [...] Maternal Grandmother Coronary Artery Disease Maternal Grandfather DC Coronary Artery Disease Paternal Grandfather DC Breast Cancer Other Social History Tobacco Use [...] of care. This note was generated using Bluestone.com software. It may contain errors in wording, punctuation, or spelling. Lul Brown APRN.[facility]08-20-2024 History of Present illness Narrative* Lul Brown APRN.[facility] - 04/26/2024 2:03 PM EDT Subjective HPI [...] Maternal Grandmother Coronary Artery Disease Maternal Grandfather DC Coronary Artery Disease Paternal Grandfather DC Breast Cancer Other Social History Tobacco Use [...] of care. This note was generated using Bluestone.com software. It may contain errors in wording, punctuation, or spelling. Lul Brown APRN.[facility]ENNY documented in this encounterMercy Health [facility]07-12-2024 NoteHNO ID: [id number] Author: LAVERNE ZABMRANO APRN.[facility] Service: ? Author Type: Nurse Practitioner [...] Maternal Grandmother Coronary Artery Disease Maternal Grandfather DC Coronary Artery Disease Paternal Grandfather DC Breast Cancer Other Social History Tobacco Use [...] HENT: Head: Normocephalic and atraumatic. Mouth/Throat: Lips: [place]. Mouth: Mucous membranes are moist. Pharynx: Uvula [...] - STREP A MOLECULAR (POC) Laverne Zambrano APRN.[facility]07-12-2024 History of Present illness Narrative* Juan ManuelLaverne APRN.[employer] - 03/18/2024 1:22 PM EDT Subjective HPI [...] Maternal Grandmother Coronary Artery Disease Maternal Grandfather DC Coronary Artery Disease Paternal Grandfather DC Breast Cancer Other Social History Tobacco Use [...] HENT: Head: Normocephalic and atraumatic. Mouth/Throat: Lips: [place]. Mouth: Mucous membranes are moist. Pharynx: Uvula [...] - STREP A MOLECULAR (POC) Laverne Zambrano APRN.BENNY documented in this encounterMercy Health [facility]07-12-2024 History of Present illness Narrative* John [...] PATIENT PRESENTS WITH AN IMPLANTABLE OR ATTACHED PEEL OVEN TENDER: No RADIOLOGY DEPARTMENT: General X-ray: Exam(s) Completed: Chest X-Ray PERIPHERAL IV DATA: Not applicable SIGNED BY: RT Mary Ann([place]) March 18, 2024 1:20 PM documented in this encounterMercy Health [facility] Hospital07-12-2024 NoteHNO ID: [id number] Author: JOHN DAVIS RT(R) Service: Radiology Author [...] PATIENT PRESENTS WITH AN IMPLANTABLE OR ATTACHED PEEL OVEN TENDER: No RADIOLOGY DEPARTMENT: General X-ray: Exam(s) Completed: Chest X-Ray PERIPHERAL IV DATA: Not applicable SIGNED BY: RT Mary Ann(R) March 18, 2024 1:20 [facility]06-27-2024 NoteHNO ID: [id number] Author: PRAKASH ZHAO MD Service: ? Author Type: Physician Type: Progress Notes Filed: 03/03/2024 15:38 Note Text: This note was created using Entefyriter. Subjective Jessica Barr is a 18 year [...] on risks of binge consumption. Prakash Zhao, [facility]06-27-2024 History of Present illness Narrative* Prakash [...] consumption. Prakash Zhao MD documented in this encounterMercy Health [facility] Hospital06-24-2024 NoteHNO ID: [id number] Author: MIRIAM WATSON PA-C Service: ? Author Type: Physician Mold Operator Type: Progress Notes Filed: 02/29/2024 12:41 Note [...] Maternal Grandmother Coronary Artery Disease Maternal Grandfather DC Coronary Artery Disease Paternal Grandfather DC Breast Cancer Other Social History Tobacco Use [...] symptoms - STREP A MOLECULAR (POC) [facility]06-24-2024 History of Present illness Narrative* Miriam Watson PA-C - 02/29/2024 12:39 PM EDT This note was created using Entefyriter. Subjective Jessica Barr is a 18 year [...] Maternal Grandmother Coronary Artery Disease Maternal Grandfather DC Coronary Artery Disease Paternal Grandfather DC Breast Cancer Other Social History Tobacco Use [...] (POC) Miriam Watson PA-C documented in this encounterMercy Health [facility] Hospital06-24-2024 Instructions* Patient Instructions* Miriam Watson PA-C - 02/29/2024 11:[address] Zhao follow up for smoking cessation Dayquil/Nyquil otc for cold symptoms If not better inone we elina sen again documented in this encounterMercy Health Perry[facility] Hospital05-24-2024 NoteHNO ID: [id number] Author: IVONNE COOPER APRN.[employer] Service: ? Author Type: Nurse Practitioner Type: [...] Maternal Grandmother Coronary Artery Disease Maternal Grandfather DC Coronary Artery Disease Paternal Grandfather DC Breast Cancer Other Social History Tobacco Use [...] Discussed expected course of illness Ivonne Cooper APRN.[facility]05-24-2024 History of Present illness Narrative* Ivonne Cooper APRN.[facility] - 01/29/2024 8:48 AM EDT Images from [...] Maternal Grandmother Coronary Artery Disease Maternal Grandfather DC Coronary Artery Disease Paternal Grandfather DC Breast Cancer Other Social History Tobacco Use [...] Discussed expected course of illness Ivonne Cooper APRN.[employer] documented in this encounterMercy Health [facility]05-24-2024 Instructions* Patient Instructions* Ivonne Cooper APRN.BENNY - 01/29/2024 8:48 AM [...] possible. To treat ahtlete s foot, use mlgl-xpz-jiztepc medicated foot powder or cream such as [...] one week of treatment. documented in this encounterMercy [facility]07-05-2023 Note Discharge Instructions Thank you for [...] Schedule the Following Appointments Follow Up with [facility] When Within 3-5 days Where: [address] [place] [address]- Allergies NKA Medications Please ask your primary [...] cramping, and pain worse. If taking medicines: Akds-rkt-qkjjavk nausea and diarrhea medicines are generally OK [...] with soap and water and using alcohol-based commercial real estate paralegal is the best way to prevent the [...] Keep uncooked meats away from cooked and xzvlb-bh-tfy foods. Use a food thermometer when cooking. [...] or as directed by your healthcare provider [phone] [employer]. [address] [place] [address], [place] [address]. All rights reserved. This information is not intended as a substitute for professional medical care. Always follow yourhealthcare professional's instructions. Additional Information VACCINATE! IT SAVES LIVES! Members of the community who have not yet received the COVID-19 vaccine and would like to receive it can visit one of [facility] vaccine clinics. There are many vaccine clinic locations within the [facility]. For locations and available times, please visit www.[email or web address].[place].gov/. It is important to note that some COVID mobile vaccine clinics are held outdoors and may be canceled in rainy or stormy conditions. To learn more about pediatric vaccinations (ages 5-11), we invite you to visit the [facility] webpage. https://[email or web address] [email or web address]/pages/[email or web address]-Hzcbv-Vdajwuuqtby-Viofldvawr-Lgrny-Vkb stions.htmlTo learn more about the COVID-19 vaccine, we invite you to visit the CDC website for a list of frequently asked questions. https://www.cdc.gov/coronavirus/2019-ncov/vaccines/faq.html [facility] Patient Portal Access Instructions: Stay connected with your healthcare team and access your personal medical information anytime with the [facility] Patient Portal. If you would like a full copy of your medical records please contact the [facility] Medical Records Department Thursday through Thursday between 8a.m. and 4:30p.m. Please follow the directions below to access the portal: 1.Access the email account you provided upon registration to the hospital.2.Look for an invitation email from [facility].3.Open the email and access the invitation link: Accept Invitation to [facility]4.Fill in the required momin to create your account. Sign into www.Clever Goats Media with your username and password that you [...] you will allow to register on the [facility] Patient Portal for access to your information. You can also access the [facility] Patient Portal on the KeyEffx. Simply click on Health Records under Earlier Media and then click on the DeepRockDrive logo. HOW TO SAFELY DISPOSE OF PRESCRIPTION [...] Call your local pharmacy or go to [email or web address] to find one close to you.3.Make use of household items: Use cat litter or old coffee grounds to dispose medications if other options arenot available. Mix your drugs with these household products, seal them in an airtight container andthrow it into the garbage. Call [facility]: [phone] to be sure your drugs can be [...] aware that I should contact my doctor. Patient/Engineering Clerk Signature: Date/Time: Relationship to Patient: Witness Name/Signature: Date/Time: [facility]07-05-2023 Hospital Discharge instructions Patient Education [...] cramping, and pain worse. If taking medicines: Ihbx-nxp-htjhaua nausea and diarrhea medicines are generally OK [...] with soap and water and using alcohol-based commercial real estate paralegal is the best way to prevent the [...] Keep uncooked meats away from cooked and khdfe-ch-qyn foods. Use a food thermometer when cooking. [...] or as directed by your healthcare provider [phone] [employer]. [address] [place] [address], [place] [address]. All rights reserved. This information is not intended as a substitute for professional medical care. Always follow yourhealthcare professional's instructions. Follow Up Care 03/11/2023 14:21:03 With:[facility] Address: [address] [place] [address]- When:3-5 days [facility] 07-05-2023 Evaluation + Plan note Diagnostic Tests Pending * Stool Gastrointestinal Panel 03/11/23 * Fecal Leukocytes 03/11/23 * Stool Culture 03/11/23 [facility] 04-17-2023 Hospital Discharge instructions Patient [...] fluids will help loosen secretionsin the lungs. Fvvh-hlb-exjwoxz cough medicines that contain dextromethorphan (such as [...] Lower leg swelling, tenderness, redness or pain 9584-0761 [employer]. [address] [place] [address]. All rights reserved. This information is not [...] fluids will help loosen secretionsin the lungs. Vaey-dxj-ltvjelq cough medicines that contain dextromethorphan (such as [...] Lower leg swelling, tenderness, redness or pain 0373-[address] [employer] [place] [address]. All rights reserved. This information is not intended as a substitute for professional medical care. Always follow yourhealthcare professional's instructions. Follow Up Care 12/22/2022 13:04:26 With:Go to emergency room if symptoms worsen Address:Unknown When:2-4 days With:Call Physician Referral Address:Unknown When:2-4 days [facility] 04-17-2023 Note Discharge Instructions Thank you for allowing [place] to assist you with your healthcare needs. [...] may report side effects to FDA at 5-688-FEF-8847. What other drugs will affect albuterol inhalation? [...] may affect albuterol inhalation, including prescription and btos-hxo-phvcflu medicines, vitamins, and herbal products. Not all [...] to ensure that the information provided by [employer]. ('Multum') is accurate, up-to-date, and complete, but no guarantee is made to that effect. Drug information contained herein may be time sensitive. Pigm[employer] information has been compiled for use by healthcare practitioners and consumers in the [place] and therefore [employer] does not warrant that uses outside of the [place] are appropriate, unless specifically indicated otherwise. [employer] drug information does not endorse drugs, diagnose patients or recommend therapy. [employer] drug information isan informational resource designed to [...] effective or appropriate for any given patient. [employer] does not assume any responsibility for any aspect of healthcare administered with the aid of information [employer] provides. The information contained herein is not intended to cover all possible uses, directions, precautions, warnings, drug interactions, allergic reactions, or adverse effects. If you have questions about the drugs you are taking, check with your doctor, nurse or pharmacist. Copyright 6883-6646 [employer]. Version: 10.. Revision Date: 07/25/2020. prednisone (PRED bert Felipe What is the most important information [...] may report side effects to FDA at 0-075-YNK-8664. What other drugs will affect prednisone? Sometimes [...] may affect prednisone. This includes prescription and sryi-azg-gbakwhe medicines, vitamins, and herbal products. Not all [...] to ensure that the information provided by [employer]. ('Multum') is accurate, up-to-date, and complete, but no guarantee is made to that effect. Drug information contained herein may be time sensitive. [employer] information has been compiled for use by healthcare practitioners and consumers in the [place] and therefore [employer] does not warrant that uses outside of the [place] are appropriate, unless specifically indicated otherwise. [employer]'s drug information does not endorse drugs, diagnose patients or recommend therapy. [employer] drug information isan informational resource designed to [...] effective or appropriate for any given patient. [facility] does not assume any responsibility for any aspect of healthcare administered with the aid of information [employer] provides. The information contained herein is not intended to cover all possible uses, directions, precautions, warnings, drug interactions, allergic reactions, or adverse effects. If you have questions about the drugs you are taking, check with your doctor, nurse or pharmacist. Copyright 1171-3840 [employer]. Version: 10. Revision Date: 12/02/2018. benzonatate (jania [...] may report side effects to FDA at 9-704-VGX-6302. What other drugs will affect benzonatate? Using benzonatate with other drugs that make you drowsy can worsen this effect. Ask your doctor before using opioid medication, a sleeping pill, a muscle relaxer, or medicine for anxiety or seizures. Other drugs may affect benzonatate, including prescription and skdr-xsn-bgyoopk medicines, vitamins, and herbal products. Tell your [...] to ensure that the information provided by [employer]. ('Multum') is accurate, up-to-date, and complete, but no guarantee is made to that effect. Drug information contained herein may be time sensitive. [employer] information has been compiled for use by healthcare practitioners and consumers in the [place] and therefore [employer] does not warrant that uses outside of the [place] are appropriate, unless specifically indicated otherwise. [employer] drug information does not endorse drugs, diagnose patients or recommend therapy. [employer] drug information isan informational resource designed to [...] effective or appropriate for any given patient. [employer] does not assume any responsibility for any aspect of healthcare administered with the aid of information [employer] provides. The information contained herein is not intended to cover all possible uses, directions, precautions, warnings, drug interactions, allergic reactions, or adverse effects. If you have questions about the drugs you are taking, check with your doctor, nurse or pharmacist. Copyright 7516-7454 [employer]. Version: 9.01. Revision Date: 06/16/2019. Education Materials [...] fluids will help loosen secretionsin the lungs. Tywf-tit-ewjbalx cough medicines that contain dextromethorphan (such as [...] Lower leg swelling, tenderness, redness or pain [phone] [employer]. [address] [place] [address], [place] [address]. All rights reserved. This information is not [...] fluids will help loosen secretionsin the lungs. Dfxe-nlm-ndltrni cough medicines that contain dextromethorphan (such as [...] Lower leg swelling, tenderness, redness or pain 8096-5307 [employer]. [address] [place] [address]. All rights reserved. This information is not intended as a substitute for professional medical care. Always follow yourhealthcare professional's instructions. Additional Information VACCINATE! IT SAVES LIVES! Members of the community who have not yet received the COVID-19 vaccine and would like to receive it can visit one of [facility] vaccine clinics. There are many vaccine clinic locations within the [facility]. For locations and available times, please visit www.[email or web address].[place].gov/. It is important to note that some COVID mobile vaccine clinics are held outdoors and may be canceled in rainy or stormy conditions. To learn more about pediatric vaccinations (ages 5-11), we invite you to visit the [facility] webpage. https://www.[email or web address].org/pages/0149-Tynll-Zxuiunpodil-Niqjphgbgi-Kttof-Cif stions.htmlTo learn more about the COVID-19 vaccine, we invite you to visit the CDC website for a list of frequently asked questions. https://www.cdc.gov/coronavirus/2019-ncov/vaccines/faq.html [place] [facility] [facility] Patient Portal Access Instructions: Stay connected with your healthcare team and access your personal medical information anytime with the [place] [employer] Patient Portal. If you would like a full copy of your medical records please contact the [facility] Medical Records Department Thursday through Thursday between 8a.m. and 4:30p.m. Please follow the directions below to access the portal: 1.Access the email account you provided upon registration to the [facility].2.Look for an invitation email from [facility].3.Open the email and access the invitation link: Accept Invitation to [facility]4.Fill in the required momin to create your account. Sign into www.[email or web address] with your username and password that you [...] you will allow to register on the [facility] Patient Portal for access to your information. You can also access the [facility] Patient Portal on the KeyEffx. Simply click on Health Records under Earlier Media and then click on the DeepRockDrive logo. HOW TO SAFELY DISPOSE OF PRESCRIPTION [...] Call your local pharmacy or go to http://bit.ly/6D5Oe1r to find one close to you.3.Make use of household items: Use cat litter or old coffee grounds to dispose medications if other options arenot available. Mix your drugs with these household products, seal them in an airtight container andthrow it into the garbage. Call [facility]: [phone] to be sure your drugs can be [...] aware that I should contact my doctor. Patient/Engineering Clerk Signature: Date/Time: Relationship to Patient: Witness Name/Signature: Date/Time: [facility]04-17-2023 Note ORIGINAL HISTORY: Cough COMPARISON: [...] Sign Date: 12/22/2022 2:43:59 PM Ordering Provider: [place] [address]-17-2023 Note ORIGINAL HISTORY: Cough COMPARISON: 17 June [...] Sign Date: 12/22/2022 2:43:59 PM Ordering Provider: [place] [address]-17-2023 SARS-CoV-2 (COVID-19) RNA TRAY+probe Ql (Nph)Negative *NA* (12/22/22 1:40 PM)AO Auto Urine [id number] Hospital Discharge instructions* Discharge Instructions* Omar Walls [...] or pallor in extremity. documented in this encounterSUMMA Work Phone: [phone]) 995-712810-15-2022 Hospital Discharge instructions* Discharge Instructions* Nahid Mackey [...] sent through Care Everywhere. * Weakness: Generalized (Central African) documented in this encounterSUMMA Work Phone: [phone]) 291-542710-12-2022 NoteOPERATIVE NOTE DATE OF PROCEDURE: 06/19/2022 SURGEON: [...] outside hospital who then transferred him to [facility] care. I explained the risk, [...] was woken from anesthesia without any issues [facility]10-12-2022 History of Present illness Narrative* Smiley [...] follow Kam Ramirez MD Orthopaedic Surgery, PGY3 [facility] [phone] * Batsheva Salgado, PAINTER AND DECORATOR APPRENTICE - [employer]ENT [employer]TE[employer] - 06/18/2022 6:29 AM EDT Images from [...] [facility]. [facility] pain level currently is [...] BID Renato Eaton MD 100 mg at 06/17/22 205 senna (SENOKOT) tablet 8.6 mg 1 tablet [...] Daily Kam Ramirez MD 1,000 mg at 06/17/22 2100 gabapentin (NEURONTIN) capsule 100 mg 100 mg Oral TID Kam Ramirez MD 100 mg at 06/17/22 2100 piperacillin-tazobactam (ZOSYN) 3375 mg in dextrose 50 mL IVPB extended infusion (premix) 3,375 mg IntraVENous q8h Kam Ramirez MD 12.5 mL/hr at 06/18/22 0458 3,375 mg at 06/18/22 0458 enoxaparin Sodium (LOVENOX) injection 30 mg 30 mg SubCUTAneous BID Dimas Bridges APRN - SUPERINTENDENT [employer] 30 mg at1 1451 ARE THERE PERTINENT [...] BP Temp Temp src Pulse Resp SpO2 06/18/22 05 -- -- -- -- 18 -- 06/18/22 [...] 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 Diet: Regular PHYSICAL: Physical Exam Vitals [...] Radiology ACCESSION EXAM DATE/TIME PROCEDURE ORDERING PROVIDER [id number] 06/17/2022 03:53 EDT CR Hand Complete 3+ [id number] -LEDY, Views Right HIEU CPT code 03700 Reason For Exam (CR Hand Complete 3+ [...] Computed Tomography ACCESSION EXAMDATE/TIME PROCEDURE ORDERING PROVIDER [id number] 06/17/2022 05:[address] Chest/Abdomen/Pelvis [id number] -RENATO EATON (IV Only) CPT code 55465 09280 Q9967 Reason For Exam (CT Chest/Abdomen/Pelvis (IV [...] Result Date: 06/17/2022 [id number] Radiology ACCESSION EXAM DATE/TIME PROCEDURE ORDERING PROVIDER [id number] 06/17/2022 03:53 EDT CR Wrist Complete 3 [id number] -KAM RAMIREZ Views Right CPT code 47210 Reason For Exam (CR Wrist Complete 3 [...] nodule 06/17/2022 Yes I personally supervised the PAINTER AND DECORATOR APPRENTICE/TREVOR in the evaluation and development of a [...] as stated in HPI. - as per PAINTER AND DECORATOR APPRENTICE note - I evaluated pt on 06/18/22 - doing well, pain controlled - d/c w/ po keflex s99gzsd - f/u ortho outpt - plan for home today Greater than 51% of the >= 25 minute total care time throughout the day (including chart review,care coordination, and svzw-qe-pmpz encounter) was spent discussing/counseling the patient/family regarding the care plan for Jessica Barr. I examined independently and reviewed relevant data myself and may have done so in the context of team rounds. Girma Tan MD Division of Trauma Department of Surgery [facility] ~~~~~~~~~~~~~~~~~~~~~~~~~~~~~~~~~~~~~~~~~~~~~~~~~~~~~~~~~~~~~ This note may have been dictated using Bluestone[employer] Medical Practice Edition 2.6 and/or Metacloud Voice Recognition Feature. The document was proofread; however, unrecognized voice recognition block cuber errors may be present. * Justo Jorge, OT - 06/17/2022 4:08 PM EDT Occupational Therapy Facility/Department: [facility] Occupational Therapy Initial Assessment [...] and phone number for OP OT at [facility] since this is closest to home, [...] Social/Functional History Additional Comments: works on the [employer] Objective Heart Rate: 80 Heart Rate Source: [...] Inpatient Daily Activity Raw Score: 18 (06/17/22 155) AM-PAC Inpatient ADL T-Scale Score : 38.66 (06/17/22 155) ADL Inpatient CMS 0-100% Score: 46.65 (06/17/22 1558) ADL Inpatient CMS G-Code Modifier : CK [...] 06/17/2022 2:30 PM EDT Physical Therapy Facility/Department: [facility] Physical Therapy Initial Assessment [...] Social/Functional History Additional Comments: works on the [employer] Vision/Hearing Cognition Objective AROM RLE (degrees) RLE [...] Evans PT * Dimas Bridges APRN - BENNY [...] care, likely discharge tomorrow documented in this [facility] Work Phone: 1(240) 428-573010-11-2022 Hospital Discharge instructions* Discharge Instructions* Glory Stinson [...] your lung navigator, Sahara Stinson RRT, @ [phone] if you have any questions about your [...] most local grocery stores, pharmacies, and chain [employer]-stores. If you have any questions about your diet or nutrition, call the hospital and ask for the dietitian. Regular Diet * Discharge Instr - Lab* Tami Guerra RN - 06/18/2022 9:06 AM EDT Therapy recommending outpatient therapy for strengthing and balance training. Outpatient Services for rehabilitation [phone] to make an appointment [facility] [address] [place] [address] [facility] [address] [facility] [place] [address] [facility] [address] [facility] [address] [place] [address] [facility] [address] [address] [facility] [address] [place] [address] [facility] at [address] [place] [address] [facility] at [address] [place] [address] * Attachments The following attachments cannot be sent through Care Everywhere. * Pulmonary Nodules: General Info (Central African) documented in this [facility] Work Phone: 1(557) 159-724010-11-2022 Note ORIGINAL EXAMINATION: CT OF THE HEAD [...] Sign Date: 06/17/2022 1:37:39 AM Ordering Provider: [facility]10-11-2022 Note ORIGINAL EXAMINATION: CT OF THE CERVICAL [...] Sign Date: 06/17/2022 1:35:06 AM Ordering Provider: [facility]10-11-2022 Note ORIGINAL EXAMINATION: ONE XRAY VIEW OF [...] Sign Date: 06/17/2022 1:31:13 AM Ordering Provider: [facility]10-11-2022 Note ORIGINAL EXAMINATION: CT OF THE HEAD [...] Sign Date: 06/17/2022 1:37:39 AM Ordering Provider: [facility]10-11-2022 Note ORIGINAL EXAMINATION: CT OF THE CERVICAL [...] Sign Date: 06/17/2022 1:35:06 AM Ordering Provider: [facility]10-11-2022 Note ORIGINAL EXAMINATION: ONE XRAY VIEW OF [...] Sign Date: 06/17/2022 1:31:13 AM Ordering Provider: [facility]10-11-2022 Note ORIGINAL EXAMINATION: TWO XRAY VIEWS OF [...] Sign Date: 06/17/2022 12:21:56 AM Ordering Provider: [facility]10-11-2022 Note ORIGINAL EXAMINATION: TWO XRAY VIEWS OF [...] Sign Date: 06/17/2022 12:21:56 AM Ordering Provider: [facility]08-11-2022 Hospital Discharge instructions Patient Education 04/17/2022 14:52:09 [...] Rectal bleeding can also happen without pain. [phone] [employer] [place] [address]. All rights reserved. This information is not intended as a substitute for professional medical care. Always follow yourhealthcare professional's instructions. Follow Up Care 04/17/2022 14:32:48 With:VASQUEZ MOCTEZUMA MD Address: [address] [place] [address] [phone]- When:2-4 days [facility] 08-11-2022 Note Discharge Instructions Thank you for allowing [place] to assist you with your healthcare needs. [...] MOCTEZUMA MD When Within 2-4 days Where: [address] [place] [address] [id number]- Allergies NKA Medications Please ask your primary [...] Rectal bleeding can also happen without pain. 6742-6400 [employer]. [address] [place] [address], [place] [address]. All rights reserved. This information is not intended as a substitute for professional medical care. Always follow yourhealthcare professional's instructions. Additional Information VACCINATE! IT SAVES LIVES! Members of the community who have not yet received the COVID-19 vaccine and would like to receive it can visit one of [facility] vaccine clinics. There are many vaccine clinic locations within the [facility]. For locations and available times, please visit [email or web address]. It is important to note that some COVID mobile vaccine clinics are held outdoors and may be canceled in rainy orstormy conditions. To learn more about pediatric vaccinations (ages 5-11), we invite you to visit the [facility] webpage. [email or web address]/[email or web address]-Vppfv-Gribjrvpnap-Rbttsahjzm-Jpxet-Pzi stions.htmlTo learn more about the COVID-19 vaccine, we invite you to visit the [facility] website for a list of frequently asked questions. [email or web address]://[email or web address]/[email or web address]/agonh-Xboxikm-Jszuataxch _Asked-Questions.pdf [facility] Patient Portal Access Instructions: Stay connected with your healthcare team and access your personal medical information anytime with the [facility] Patient Portal. If you would like a full copy of your medical records please contact the [facility] Medical Records Department Thursday through Thursday between 8a.m. and 4:30p.m. Please follow the directions below to access the portal: 1.Access the email account you provided upon registration to the hospital.2.Look for an invitation email from [facility].3.Open the email and access the invitation link: Accept Invitation to [facility]4.Fill in the required mmoin to create your account. Sign into www.[employer] with your username and password that you [...] you will allow to register on the [facility] Patient Portal for access to your information. You can also access the [facility] Patient Portal on the [employer] sammy. Simply click on Health Records under Earlier Media and then click on the [facility] logo. [...] Call your local pharmacy or go to [email or web address] to find one close to you.3.Make use of household items: Use cat litter or old coffee grounds to dispose medications if other options arenot available. Mix your drugs with these household products, seal them in an airtight container andthrow it into the garbage. Call [facility]: [phone] to be sure your drugs can be [...] aware that I should contact my doctor. Patient/Engineering Clerk Signature: Date/Time: Relationship to Patient: Witness Name/Signature: Date/Time: [facility]05-27-2022 History of Present illness Narrative * Prakash Zhao MD - 01/31/2022 4:45 PM EDT This note was created using Entefyriter. Subjective Patient presents with: Acute Visit: chest [...] SCRN Prakash Zhao MD [facility] Miscellaneous Notes* Telephone Encounter - Jessy [...] please notify thank you documented [facility] History of Present illness Narrative* Ivonne [...] Maternal Grandmother Coronary Artery Disease Maternal Grandfather DC Coronary Artery Disease Paternal Grandfather DC Breast Cancer Other Social History Tobacco Use [...] expected course of illness Ivonne Cooper APRN.CNP documented [facility]22 Instructions* Patient Instructions* Ivonne Cooper APRN.CNP [...] expected course of illness Ivonne Cooper APRN.CNP SORE THROAT INSTRUCTIONS SORE THROAT OVERVIEW - [...] or mouth and then touchesanother person directly (oidf-wl-ocbd contact) or indirectly (avxn-ax-tgpljr, such as doorknob, telephone, toys). It is [...] every four months on our web site ([email or web address]/patients). Information below was obtained from Up to date Last literature review version 19.2: January 2011 This topic last updated: April 24, 2010 documented in this [facility]21 Evaluation + Plan note Future Scheduled Tests Laboratory* COVID-19 Only (AO) 04/29/21 [facility] Consult note Author Alondra Seals [facility] Note Date/Time March 07, 2025 10:[address] [facility] Medical Records Department [address] [place] [address] Counseling Note - Pharmacy 03/07/25 1054 MR#: [id number] Acct: [id number] Name: JESSICA BARR Rep #:[id number] : 2005 19 From: Alondra Seals PCP: JUAN DANIEL BrownC Status:AD M IN Location: [facility] BL641-8 Pharmacy [facility] Counseling Pharmacy Service has performed [...] 03/07/25 03/07/25 1055 <Electronically signed by Alondra Saels> Date _ Alondra Seals Cosigner Signature (if applicable): Date CC: ~ Signed [facility] Work Phone: Discharge summary Author Lupillo Alvarado [facility] Note Date/Time January 29, 2025 5:39a m [facility] Medical Records Department [address] [place] [address] Emergency Department Summary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 ORGANIZ ATION 03/29/2025 [facility] DATE CREATED AUTHOR AUTHOR'S ORGANIZ ATION 05/17/2025 [facility] Goals (unrecognized section and content) Goals [...] BE BASED ON THE PRIMARY CLINICAL RECORDS. [employer] provides no warranty or guarantee of the accuracy or completeness of information in this document.
--- NOTE | 2025-05-18 02:53 | EDS_ITS ---
HPI History of Present Illness Chief Complaint: Mental Health Informant: patient Narrative Narrative: Patient is a 20-year-old male with past medical history of anxiety and depression. He states he was using kratom for quite a long time. He states that he recently went to detox where he was able to get off the drug. He states it has been 7 days since his last use. He states that initially he had nausea vomiting diarrhea anxiety. He states though symptoms are improving but he has difficulty sleeping and states I have not been able to sleep for a week. He is on fluoxetine trazodone and Seroquel as well as cyclobenzaprine and Requip. He states despite taking those he still cannot sleep and therefore comes in for evaluation. He denies using kratom since his discharge and he denies any thoughts of suicidal or homicidal ideation [facility] Medical History Pain in right testicle Smoker Depression Anxiety Home Medications ?Medication ?Instructions ?Recorded ?Last Taken ?Type NK 04/04/25 Unknown History Allergy/AdvReac Type Severity Reaction Status Date / Time No Known Allergies Allergy Verified 05/18/25 02:16 Family History Grandmother Breast cancer Aunt Breast cancer Uncle Cancer Surgical History Status post open reduction and internal fixation (ORIF) of fracture Social History Smoking Status: Current every day smoker tobacco type: cigarettes and e- cigarettes alcohol intake: current alcohol intake frequency: a few times a month substance use type: marijuana ROS ROS ED Constitutional Constitutional ED: Denies chills or fever(s) Eyes Eyes: Denies blurry vision or change in vision ENT ENT ED: Denies sore throat Cardiovascular Cardiovascular: Reports racing heartbeat; Denies chest pain Respiratory/Chest Respiratory/Chest: Denies cough or dyspnea Gastrointestinal Gastrointestinal: Denies abdominal pain, diarrhea, nausea or vomiting Musculoskeletal Musculoskeletal: Denies myalgias Integumentary Denies rash Neurologic Neurologic: Denies headache(s) Psychiatric Psychiatric: Reports anxiety and other Details: Positive insomina ; Denies suicidal ideation or suicidal thoughts Hematologic/Lymphatic Hematologic/Lymphatic: Denies easy bleeding or easy bruising EXAM Physical Exam Const Vital Signs: 05/18/25 02:12 05/18/25 03:20 Temperature 98.3 F 98 F Temperature Source Temporal Pulse Rate 118 H 89 Respiratory Rate 18 18 Blood Pressure 155/89 H 148/88 H Blood Pressure Mean 111 108 Pulse Ox 98 99 Oxygen Delivery Method Room Air Positive well nourished and well developed General Appearance ED: well developed; Negative for pallor HEENT HEENT Narrative: Normocephalic atraumatic Eyes PERRL and EOMs intact bilaterally General Eye ED: Negative for scleral icterus Neck supple Resp normal respiratory effort and clear to auscultation bilaterally Cardio regular rhythm Rate: tachycardic and other Other Details: Tachycardic rate with regular rhythm Radial and carotid pulses equal and symmetric Extremity normal to inspection Extremity Narrative: No asymmetric edema no pitting edema negative Homans' sign bilaterally Neuro oriented x3, CN's II-XII intact bilaterally and no sensory deficits noted Sensorium / Orientation: alert Motor Exam: strength 5/5 throughout Psych Psych Narrative: Patient has a nervous/anxious affect No homicidal or suicidal ideation Mood & Affect: anxious Skin no rashes or lesions noted General Skin Exam: Negative for jaundice or pallor MDM MDM MDM Narrative Medical decision making narrative: Patient arrived to the ER hypertensive and tachycardic but overall stable vitals and in no acute distress. He reported he had just finished a 1 week stay at rehab secondary to kratom use. He states he has not been able to sleep and has been prescribed multiple medications to help with symptoms however he feels they are not working. He denies any homicidal or suicidal ideation. He denies any repeat use of kratom or other illicit substance. Therefore at this time as he is not homicidal or suicidal I feel no need for emergent psychiatric workup and he is not using illicit substances anymore so there is no need for repeat admission for desire for detoxification. At this time I feel the patient is on appropriate medication to help with symptoms but as he is having difficulty sleeping I will provide a one-time dose of IM Ativan and Benadryl to help stimulate sleep. Otherwise as workup is nonfocal and he does not have a need for psychiatric evaluation or repeat placement in detox he is otherwise safe for discharge History & Record Review Discussion w/independent historian: Patient Discharge Plan Triage Chief Complaint: Mental Health ED Provider: Girma Avila Dx/Rx/DC Orders Clinical Impression: Insomnia, Anxiety and depression Instructions: Treating Insomnia Prescriptions: No Action NK Primary Care Provider: Mitali Mcnair NP Referrals: Mitali Mcnair NP, AUTOMOBILE BODY REPAIR CHIEF-C [Primary Care Provider] - Activity Restrictions/Additional Instructions: In order to help stimulate sleep you may try increasing your trazodone to 300 mg at bedtime. You can also take 2 [id number] Benadryl at bedtime to help stimulate sleep with this. If you have any further concerns or worsening symptoms please follow-up with your family doctor or return to the ER for repeat evaluation Print Language: Persian Disposition Disposition: Home, Self Care Discharge Date/Time: 05/18/25 03:23
[2025-05-18] MEDS: DiphenhydrAMINE 50 MG/ML Syringe IM (03:04)
[2025-05-18 03:20] VITALS: BP 148/88; PULSE 89; RESP 18; TEMP 36.6; O2SAT 99
== END 2025-05-18 03:23 | disposition home or self-care (01) ==
PROVIDERS: Emergency Provider Emergency Medicine; PCP Registered Nurse; Visit Provider Emergency Medicine
DX: F41.9 Anxiety disorder, unspecified (principal); G47.00 Insomnia, unspecified; F32.A Depression, unspecified; Z79.899 Other long term (current) drug therapy; F17.210 Nicotine dependence, cigarettes, uncomplicated; F17.290 Nicotine dependence, other tobacco product, uncomplicated
CPT/HCPCS: 96372; 99282

== ENCOUNTER 2025-09-06 07:23 | Emergency (ER) | payer SELFPAY ==
[2025-09-06 07:24] VITALS: BP 146/84; PULSE 83; RESP 16; TEMP 36.2; O2SAT 98; BMI 22.4
--- NOTE | 2025-09-06 07:44 | US_ITS ---
PROCEDURE: TESTICULAR WITH ARTERIAL FLOW 09/06/2025 REASON FOR EXAM: R TESTICLE PAIN, HX OF CANCER REMOVED History of right testicle being surgically removed in February 2025. TECHNIQUE: Procedure Code: USTES Modality: US Procedure: TESTICULAR WITH ARTERIAL FLOW COMPARISON: Testicular ultrasound studies dated 03/05/2025 and 02/24/2025 FINDINGS: RIGHT testicle: Has been surgically removed. In the location of pain, at the right testicular scar region, there are multiple benign-appearing lymph nodes. These measure 14 x 8 x 4 mm, 13 x 12 x 5 mm and 11 x 9 x 4 mm. LEFT testicle: Measures 3.5 x 2.0 x 1.8 cm Size contour and echogenicity are within normal limits. No intratesticular masses are seen. Both arterial and venous flow are noted. Left epididymis: Measures 1.0 x 0.6 x 0.5 cm. There are no epididymal masses. Other findings: No hydrocele or large varicocele. US/Testicular with Arterial Flow IMPRESSION: NORMAL LEFT SCROTAL ULTRASOUND. The right testicle has been surgically removed. In the location of pain, there are benign-appearing lymph nodes identified. Th catrachita are in the location of the scar from where of the prior right testicle was surgically removed. Reading Location: [facility]
[2025-09-06 07:56] LABS: Mucous, Urine 0 SEEN /hpf (<or=2+); Red Blood Cells-Urine 0 SEEN /hpf (0-5)
[2025-09-06 07:58] LABS: Color, Urine Yellow (Yellow); Glucose, Dipstick Normal (Normal); Ketone-Dipstick 5 mg/dl (Negative); Leukocyte Esterase-Dipstick 25 /ul (Negative); Nitrite-Dipstick Negative (Negative); Occult Blood-Urine Negative /ul (Negative); Protein-Dipstick 30 mg/dl (Negative); Specific Gravity, Urine 1.020 (1.002-1.030)
--- NOTE | 2025-09-06 07:58 | EDS_ITS ---
HPI History of Present Illness Chief Complaint: Male Pain/Injury Narrative Narrative: Patient is a 20-year-old male with a past medical history of anxiety, depression, testicular cancer status post removal who presented to the emergency department with a chief complaint of testicular pain near his surgical scar. He states that he has been back to work and does not recall bending over picking up a thing extra heavy. He states that he still urinating normally for himself denies any pain. Patient is concerned that the cancer may have returned. He states that he has not had any follow-up since surgery as he no longer has insurance. [facility] Medical History Pain in right testicle Smoker Depression Anxiety Home Medications ?Medication ?Instructions ?Recorded ?Last Taken ?Type NK 04/04/25 Unknown History Allergy/AdvReac Type Severity Reaction Status Date / Time No Known Allergies Allergy Verified 09/06/25 07:24 Family History Grandmother Breast cancer Aunt Breast cancer Uncle Cancer Surgical History Status post open reduction and internal fixation (ORIF) of fracture Social History Smoking Status: Current every day smoker tobacco type: cigarettes and e- cigarettes alcohol intake: current alcohol intake frequency: a few times a month substance use type: marijuana ROS ROS ED ROS Narrative Constitutional: Denies any fevers or chills Abdomen: Denies abdominal pain nausea vomit diarrhea : Denies any urinary symptoms complains of pain near the scar on his testicle Neurological: Patient following commands knew that he was at [facility] year is 2024 Skin: Warm, dry, tact no rashes or lesions noted EXAM Physical Exam Const Vital Signs: 09/06/25 07:24 09/06/25 09:23 Temperature 97.1 F L 98.3 F Temperature Source Temporal Oral Pulse Rate 83 85 Respiratory Rate 16 16 Blood Pressure 146/84 H 126/69 H Blood Pressure Mean 104 88 Pulse Ox 98 100 Oxygen Delivery Method Room Air Room Air MDM MDM MDM Narrative Medical decision making narrative: Patient is a 20-year-old male who presents to the emergency department with a chief complaint of pain near his surgical site on his testicle. On the differential diagnose includes but not limited to anxiety, postsurgical pain, hernia. Once workup is obtained reviewed he will be reevaluated. Patient's testicular ultrasound was reviewed which showed right testicle has been surgically removed and the location of pain there are benign-appearing lymph nodes identified there is are in the location of the scar from where the prior right testicle was surgically removed. On reevaluation the patient and he is still having pain noted in the right lower quadrant therefore we will add on blood work and a CT to ensure that he does not have evidence of appendicitis or hernia although clinically on exam he does not have any evidence of hernia. No urethral discharge noted. Patient CT abdomen pelvis with IV contrast showed no acute abnormalities. Discussed results with the patient he would like to go home at this point time. He is requesting a work note which he was provided. He is encouraged to return with worsening symptoms or any concerns. All question concerns answered is discharged home in stable condition Lab Data Labs: Laboratory Results - last 24 hr 09/06/25 09/06/25 07:50 09:45 WBC 5.4 RBC 4.75 Hgb 13.6 Hct 39.3 L MCV 82.7 MCH 28.6 MCHC 34.6 RDW Std Deviation 40.8 RDW Coeff of Emigdio 13.5 Plt Count 352 MPV 9.5 Immature Gran % (Auto) 0.600 Neut % (Auto) 65.6 Lymph % (Auto) 19.3 [place] % (Auto) 12.3 H Eos % (Auto) 0.9 Baso % (Auto) 1.3 H Absolute Neuts (auto) 3.6 Absolute Lymphs (auto) 1.05 Nucleated RBC % 0 Sodium 136 Potassium 4.2 Chloride 103 Carbon Dioxide 23.3 Anion Gap 10 BUN 11 Creatinine 0.82 Estim Creat Clear Calc 137.80 Est GFR (MDRD) Non-Af 127 BUN/Creatinine Ratio 13.4 Glucose 87 Calcium 9.1 Total Bilirubin 0.44 AST 14 ALT 13 Alkaline Phosphatase 60 Total Protein 6.6 Albumin 4.4 Globulin 2.2 Albumin/Globulin Ratio 2.0 Lipase 26 Urine Color Yellow Urine Clarity Clear Urine pH 6.0 Ur Specific [place] 1.020 Urine Protein 30 H Urine Glucose (UA) Normal Urine Ketones 5 H Urine Occult Blood Negative Urine Nitrite Negative Urine Bilirubin 1 H Urine Urobilinogen 1 H Ur Leukocyte Esterase 25 H Urine RBC 0 SEEN Urine WBC 0 SEEN Ur Squamous Epith Cells 0-5 SEEN Urine Bacteria 0 SEEN Urine Mucus 0 SEEN Radiography Diagnostic Testing: Clinical Impression(s) from Imaging Studies Testicular Ultrasound 09/06/25 07:44 IMPRESSION: NORMAL LEFT SCROTAL ULTRASOUND. The right testicle has been surgically removed. In the location of pain, there are benign-appearing lymph nodes identified. These are in the location of the scar from where of the prior right testicle was surgically removed. Reading Location: [facility] Abdomen/Pelvis CT 09/06/25 09:31 IMPRESSION: No acute abdominopelvic abnormalities. Reading Location: [facility] Discharge Plan Triage Chief Complaint: Male Pain/Injury ED Provider: Kobe Pisano Dx/Rx/DC Orders Clinical Impression: Abdominal pain, Non-seminomatous testicular cancer, H/O unilateral orchiectomy Prescriptions: No Action NK Stand Alone Forms: ED Work / School Excuse Primary Care Provider: Mitali Mcnair NP Referrals: Mitali Mcnair NP, [facility] [Primary Care Provider, Family Practice] Activity Restrictions/Additional Instructions: Your ultrasound, blood work and CT scan did not show any acute findings. Follow-up with your doctor in outpatient setting return with worsening symptoms or any other concerns. Print Language: Malay Disposition Disposition: Home, Self Care
[2025-09-06 07:59] LABS: Urine Bilirubin Dipstick 1 mg/dL (Negative)
[2025-09-06 08:06] LABS: Squamous Epithelial Cells - UA 0-5 SEEN /hpf (0-5)
[2025-09-06 09:23] VITALS: BP 126/69; PULSE 85; RESP 16; TEMP 36.8; O2SAT 100
--- NOTE | 2025-09-06 09:31 | CT_ITS ---
PROCEDURE: ABDOMEN/PELVIS W IV CONT ONLY 09/06/2025 REASON FOR EXAM: RLQ PAIN TECHNIQUE: Procedure Code: [id number] Modality: CT Procedure: ABDOMEN/PELVIS W IV CONT ONLY Coronal and Sagittal reconstruction series were provided. CONTRAST: Isovue 370 VOLUME: 75 mL One or more dose reduction techniques were used (e.g., Automated exposure control, adjustment of the mA and/or kV according to patient size, use of iterative reconstruction technique. RADIATION DOSE SUMMARY: CTDlvol: 9.64 mGy DLP: 464.77 mGycm COMPARISON: CT chest abdomen and pelvis March 2025. FINDINGS: Lung bases: Clear. Liver: Unremarkable. Gallbladder: Unremarkable. Spleen: Unremarkable. Pancreas: Unremarkable. Adrenals: Unremarkable. Kidneys: No hydronephrosis. No nephrolithiasis. Bladder: Unremarkable. Reproductive Organs: Unremarkable. Bowel: No bowel wall thickening. No bowel obstruction. Appendix: Normal. Lymph nodes: No lymphadenopathy. Vasculature: No aneurysm. Peritoneum / Retroperitoneum: No free air or free fluid. Bones: No acute bony abnormalities. CT/Abdomen/Pelvis W IV Cont ONLY IMPRESSION: No acute abdominopelvic abnormalities. Reading Location: [id number]
[2025-09-06] MEDS: 0.9% Normal Saline (1000mL) 1,000 ML 999 ML IV (09:48)
[2025-09-06 09:55] LABS: Hematocrit 39.3 % (40-54); Hemoglobin 13.6 g/dL (13.0-16.5); Immature Granulocytes Count 0.030 X10^3/uL (0.0-0.0); Mean Corp Hgb Conc 34.6 g/dL (32-36); Mean Corpuscular Volume 82.7 fL (80-94); Mean Platelet Vol. 9.5 fl (6.2-12.0); NRBC Flagged by Analyzer 0 % (0-5); Platelet Count 352 K/mm3 (150-450); RBC Distribution Width CV 13.5 % (11.6-14.6); RBC Distribution Width SD 40.8 fl (35.1-43.9); Red Blood Count 4.75 M/mm3 (4.6-6.2); White Blood Count 5.4 K/mm3 (4.4-11.0)
[2025-09-06 11:04] LABS: AST(SGOT) 14 U/L (<=37); Alanine Aminotransfer ALT/SGPT 13 U/L (<=46); Albumin, Serum 4.4 g/dL (3.5-5.0); Alkaline Phosphatase 60 U/L (40-129); Anion Gap 10 (7-18); BUN 11 mg/dL (4-19); BUN/Creat Ratio 13.4 RATIO (10-20); Calcium,Total 9.1 mg/dL (7.6-11.0); Carbon Dioxide 23.3 mmol/L (20.0-29.0); Chloride 103 mmol/L (96-106); Globulin 2.2 g/dL (2.2-4.2); Glucose 87 mg/dL (70-99); Lipase 26 U/L (13-75); Potassium 4.2 mmol/L (3.5-5.1)
[2025-09-06 11:09] VITALS: BP 117/76; PULSE 69; RESP 16; TEMP 36.8; O2SAT 100
== END 2025-09-06 11:37 | disposition home or self-care (01) ==
PROVIDERS: Emergency Provider Emergency Medicine; PCP Registered Nurse; Visit Provider Emergency Medicine
DX: R10.31 Right lower quadrant pain (principal); C62.90 Malignant neoplasm of unspecified testis, unspecified whether descended or undescended; F41.9 Anxiety disorder, unspecified; F17.210 Nicotine dependence, cigarettes, uncomplicated; F17.290 Nicotine dependence, other tobacco product, uncomplicated; Z90.79 Acquired absence of other genital organ(s)
CPT/HCPCS: 74177; 76870; 80053; 81001; 83690; 85025; 93976; 96360; 96361; 99283; Q9967; A4216